=== PATIENT | male | born 1955 | race Two or more races ===

== ENCOUNTER 2023-02-24 12:45 | Outpatient (OUT) | payer MEDICARE, SELFPAY ==
--- NOTE | 2023-02-24 13:50 | XR_ITS ---
The [address] [address] Patient Name: PATY CARDONA MRN: [id number] date: 1955 Sex: M Assigned Patient Location: [facility] Current Patient Location: [facility] Accession/Order Number: [id number] Exam Date: 02/24/2023 13:30 Report Date: 02/24/2023 15:05 At the request of: DUSTY AHMADI Procedure: XR knee JUAN 3V EXAM: XR knee JUAN 3V HISTORY: Primary Osteoarthritis Bilateral Knees COMPARISON: 10/06/16 TECHNIQUE: AP and lateral views of the bilateral knees were obtained. FINDINGS: Left knee: Redemonstration of prior ACL reconstruction. There is interval progression of joint space narrowing with marginal spurring at the tibial femoral and patellofemoral compartments. No fracture is seen. In the standing AP view, there is slight varus deformity. Right knee: There is severe narrowing of the medial compartment. There is marginal spurring at the medial and patellofemoral compartments. XR/XR knee JUAN 3V IMPRESSION: Severe bilateral knee joint osteoarthritis worst at the medial compartments, left worse than right. Electronically authenticated by: LEONID RUEDA Date: 02/24/2023 15:05
== END 2023-02-24 12:46 | disposition home or self-care (01) ==
PROVIDERS: PCP Internal Medicine; Visit Provider Internal Medicine
DX: M17.0 Bilateral primary osteoarthritis of knee (principal)
CPT/HCPCS: 73562

== ENCOUNTER 2023-07-04 16:03 | Outpatient (OUT) | payer MEDICARE, SELFPAY ==
[2023-07-04 16:23] LABS: Erythrocyte Sedimentation Rate 31 mm/hr (<=20)
[2023-07-04 16:52] LABS: Estimated Average Glucose 151 mg/dL; Glycohemoglobin A1C 6.9 % (4.5-6.2)
[2023-07-04 18:42] LABS: C Reactive Protein <0.50 mg/dL (<=0.50)
[2023-07-06 06:09] LABS: Rheumatoid Factor (RF) <10.0 IU/mL (<14.0)
[2023-07-06 11:09] LABS: ANA Direct Negative (Negative)
== END 2023-07-04 16:04 | disposition home or self-care (01) ==
LOC: LAB 16:04
PROVIDERS: PCP Internal Medicine; Visit Provider Internal Medicine
DX: M06.4 Inflammatory polyarthropathy (principal); M25.541 Pain in joints of right hand; M25.542 Pain in joints of left hand; E11.65 Type 2 diabetes mellitus with hyperglycemia
CPT/HCPCS: 36415; 83036; 85652; 86038; 86140; 86430; 86431

== ENCOUNTER 2023-09-22 14:54 | Outpatient (OUT) | payer MEDICARE, SELFPAY ==
--- NOTE | 2023-09-22 | XR_ITS ---
The [address] [address] Patient Name: PATY CARDONA MRN: [id number] date: 1955 Sex: M Assigned Patient Location: LAB Current Patient Location: Accession/Order Number: [id number] Exam Date: 09/22/2023 15:18 Report Date: 09/25/2023 07:02 At the request of: CORY HESTER Procedure: XR hand JUAN min 3v EXAMINATION: XR hand JUAN min 3v, XR wrist JUAN min 3V HISTORY: Osteoarthritis, Ployartralgia COMPARISON: No relevant comparison available. FINDINGS: RIGHT FINDINGS: BONES: No acute fracture or dislocation. Mild proliferative changes with marginal osteophyte formation. Moderate joint space narrowing. No subchondral lytic changes or marginal erosions SOFT TISSUES: Negative. No visible soft tissue swelling. OTHER: Negative. LEFT FINDINGS: BONES: No acute fracture or dislocation. Mild proliferative changes with marginal osteophyte formation. Moderate joint space narrowing. No subchondral lytic changes or marginal erosions SOFT TISSUES: Negative. No visible soft tissue swelling. OTHER: Negative. 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
--- NOTE | 2023-09-22 | XR_ITS ---
[address] [address] Patient Name: PATY CARDONA MRN: [id number] date: 1955 Sex: M Assigned Patient Location: LAB Current Patient Location: Accession/Order Number: [id number] Exam Date: 09/22/2023 15:18 Report Date: 09/25/2023 07:02 At the request of: CORY HESTER Procedure: XR wrist JUNA min 3V EXAMINATION: XR hand JUAN min 3v, XR wrist JUAN min 3V HISTORY: Osteoarthritis, Ployartralgia COMPARISON: No relevant comparison available. FINDINGS: RIGHT FINDINGS: BONES: No acute fracture or dislocation. Mild proliferative changes with marginal osteophyte formation. Moderate joint space narrowing. No subchondral lytic changes or marginal erosions SOFT TISSUES: Negative. No visible soft tissue swelling. OTHER: Negative. LEFT FINDINGS: BONES: No acute fracture or dislocation. Mild proliferative changes with marginal osteophyte formation. Moderate joint space narrowing. No subchondral lytic changes or marginal erosions SOFT TISSUES: Negative. No visible soft tissue swelling. OTHER: Negative. 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
[2023-09-22 15:51] LABS: Basophils Percent Auto 0.6 % (0.2-2.0); Eosinophils Absolute Auto 0.3 10^3/uL (0.0-0.7); Eosinophils Percent Auto 5.1 % (0.9-7.0); Hematocrit 43.9 % (42.0-54.0); Hemoglobin 14.9 g/dL (14.0-18.0); Lymphocytes Absolute Auto 1.5 10^3/uL (1.2-3.8); Lymphocytes Percent Auto 30.6 % (20.5-60.0); Mean Corpuscular HGB Conc 33.9 g/dL (29.9-35.2); Mean Corpuscular Hemoglobin 30.5 pg (25.9-34.0); Monocytes Absolute Auto 0.6 10^3/uL (0.3-0.8); Monocytes Percent Auto 12.7 % (1.7-12.0); Neutrophils Absolute Auto 2.5 10^3/uL (1.4-6.5); Platelet Count 99 10^3/uL (150-450); Red Blood Count 4.88 10^6/uL (4.70-6.10); White Blood Count 4.9 10^3/uL (4.0-11.0)
[2023-09-22 15:54] LABS: Alanine Aminotransferase 39 U/L (16-63); Albumin Level 3.4 g/dL (3.4-5.0); Alkaline Phosphatase 87 U/L (46-116); Aspartate Amino Transferase 28 U/L (15-37); BUN Creatinine Ratio 17.1; Bilirubin Total 0.7 mg/dL (0.2-1.0); C Reactive Protein <0.50 mg/dL (<=0.50); Calcium 8.4 mg/dL (8.5-10.1); Carbon Dioxide 27.9 mmol/L (21.0-32.0); Chloride 102 mmol/L (98-107); Erythrocyte Sedimentation Rate 18 mm/hr (<=20); Estimated GFR (African America >60 (>=60); Estimated GFR (Non-African Ame >60 (>=60); Globulin 3.4 g/dL; Glucose 206 mg/dL (74-106); Potassium 3.9 mmol/L (3.5-5.1); Sodium 136 mmol/L (136-145); Total Protein 6.8 g/dL (6.4-8.2)
== END 2023-09-22 14:55 | disposition home or self-care (01) ==
LOC: LAB 14:57
PROVIDERS: PCP Internal Medicine; Visit Provider Internal Medicine Rheumatology
DX: M25.59 Pain in other specified joint (principal); M15.9 Polyosteoarthritis, unspecified; Z51.81 Encounter for therapeutic drug level monitoring
CPT/HCPCS: 36415; 73110; 73130; 80053; 85025; 85652; 86140

== ENCOUNTER 2024-01-05 15:44 | Outpatient (OUT) | payer MEDICARE, SELFPAY ==
--- OUTSIDE RECORDS SUMMARY | 2024-01-05 15:52 | XMS_ITS | CCD ---
Author Organization [facility] Care Team Providers Care Owner Operator Name Role Phone Rodolfo Ahmadi Primary Care Provider [phone] GEMA MCKEON Referring Unavailable LEONELA FENTON Consulting Unavailable RODOLFO AHMADI Primary Care Unavailable VARGAS DODSON Admitting UnavailVARGAS Malloy Attending UnavailCORY Herron Consulting Unavailable VARGAS DODSON Consulting Unavailjordon e BALL, DR MONTANO Primary Care Unavailable GALDINO, DR MONTANO Admitting Unavailable GALDINO, DR MONTANO Attending Unavailable GALDINO, DR MONTANO Consulting Unavailable GALDINO, DR MONTANO Consulting Unavailable GALDINO, DR MONTANO Primary Care Unavailable GALDINO, DR MONTANO Admitting Unavailable GALDINO, DR MONTANO Attending Unavailable ANT, DR ART Huertas Consulting Unavailable Rodolfo Ahmadi Unavailable DO Rodolfo Ahmadi Primary Care Provider MD Daryn Imalexander Attending Provider [phone] Asaad, Imad Unavailable MD Osmar Mathis Attending Provider DO Rodolfo Ahmadi Primary Care Provider MD Cory Zeng Attending Provider DO Rodolfo Ahmadi Primary Care Provider [phone] MD Cory Zeng Attending Provider MD Jojo Stearns Attending Provider [phone] Cory Zeng Admitting Unavailable Cory Zeng Attending Unavailable Rodolfo Ahmadi Primary Care Unavailable Asaad, Imad Admitting Unavailable Asaad, Imad Attending Unavailable Rodolfo Ahmadi Primary Care Unavailable Asaad, Imad Admitting Unavailable Asaad, Imad Attending Unavailable Rodolfo Ahmadi Primary Care Unavailable Asaad, Imad Admitting Unavailable Asaad, Imad Attending Unavailable Rodolfo Ahmadi Primary Care Unavailable Asaad, Imad Admitting Unavailable Asaad, Imad Attending Unavailable Rodolfo Ahmadi Primary Care Unavailable Osmar Mathis Admitting UnavailOsmar Velez Attending UnavailRodolfo Nunes Primary Care Unavailable Allergies Allergy Classification Reported Allergen(s) Allergy Type Date of Onset Reaction(s) Facility (3 sources) patient allergy list reviewed by nurse or physicia Propensity to adverse reactions 7 Comment:[employer] Other Medications Current Medications Medication Drug Class(es) Dates Sig (Normalized) Sig (Original) acetaminophen 325 mg oral tablet (1 source) Start: 04-11-2019 take 650 mg by mouth every four hours as needed for pain, then take 4000 mg by mouth every twenty-four hours as needed for pain 650 mg, Oral, EVERY 4 HOURS PRN, Pain Mild (1-3), Fever, Fever >100.5 F (38 C), Starting Patrica 04/11/19 at 1625 Maximum dose of acetaminophen is 4000 mg from all sources in 24 hours. acetaminophen 325 mg / oxyCODONE hydrochloride 5 mg oral tablet (3 sources) Opioid Agonist Start: 04-18-2019 End: 04-21-2019 take 1 tablet by mouth every four hours as needed for pain, then take 1 tablet by mouth as needed for pain oxyCODONE-acetamino phen (PERCOCET) 5-325 MG per tablet Indications: Gallstone pancreatitis Take 1 tablet by mouth every 4 hours as needed for Pain for up to 3 days. Intended supply: 3 days. Take lowest dose possible to manage pain 18 tablet 0 04/18/2019 04/21/2019 Active Start: 04-17-2019 End: 04-18-2019 take 1 tablet by mouth every six hours as needed for pain, then take 1 tablet by mouth as needed for pain oxyCODONE-acetaminophen (PERCOCET) 5-325 MG per tablet Indications: Gallstone pancreatitis Take 1 tablet by mouth every 6 hours as needed for Pain for up to 7 days. Intended supply: 7 days. Take lowest dose possible to manage pain 28 tablet 0 04/18/2019 04/18/2019 Discontinued (REORDER) aspirin 81 mg delayed release oral tablet (5 sources) Platelet Aggregation Inhibitor, Nonsteroidal Anti-inflammatory Drug Start: 09-21-2023 take 81 mg by mouth once daily Aspirin Active 81 MG PO Daily September 21, 2023 12:00am take 1 tablet by mouth once celsa y aspirin 81 MG chewable tablet Take 81 mg by mouth daily 0 Active azithromycin 250 mg oral tablet (3 sources) Macrolide Antimicrobial Start: 07-15-2022 Azithromycin 250 MG as directed Orally daily for 5 days Jul, Active Blood Glucose Test - (20 sources) Blood Glucose Test - as directed In Vitro Active cefepime (MAXIPIME) 2 g IVPB minibag (1 source) Start: 04-14-2019 cefepime (MAXIPIME) 2 g IVPB minibag docusate sodium 100 mg oral capsule (1 source) Start: 04-17-2019 End: 05-17-2019 take 1 capsule by mouth twice daily docusate sodium (COLACE) 100 MG capsule Take 1 capsule by mouth 2 times daily 60 capsule 0 04/17/2019 05/17/2019 Active 0.5 ml dulaglutide 1.5 mg/ml auto-injector (16 sources) GLP-1 Receptor Agonist Start: 12-19-2022 inject 0.75 mg by subcutaneous injection every week Trulicity 0.75 MG/0.5ML 0.75MG Subcutaneous weekly for 30 days Dec, Active inject 1.5 mg by sub cutaneous injection every week Trulicity 1.5 MG/0.5ML 1.5 MG Subcutaneous weekly for 30 days Active 0.3 ml enoxaparin sodium 100 mg/ml prefilled syringe (2 sources) Low Molecular Weight Heparin Start: 04-17-2019 enoxaparin (LOVENOX) injection 30 mg Start: 04-13-2019 End: 04-16-2019 enoxaparin (LOVENOX) injecti on 40 mg 2 ml famotidine 10 mg/ml injection (1 source) Histamine-2 Receptor Antagonist Start: 04-11-2019 20 mg, Intravenous, 2 TIMES DAILY, First dose on Patrica 04/11/19 at 2100 Dilute with 5-10 mL 0.9% sodium chloride. Administer over 2 minutes. fexofenadine hydrochloride 180 mg oral tablet (1 source) Histamine-1 Receptor Antagonist take 1 tablet by mouth once daily fexofenadine (SAKSHI ALLERGY) 180 MG tablet Take 180 mg by mouth daily 0 Active glipiZIDE 10 mg oral tablet (20 sources) Sulfonylurea Start: 01-05-2024 take 10 mg by mouth once daily Glipizide Active 10 MG PO Daily January 05, 2024 3:20pm Start: 01-05-2024 End: 01-05-2024 take 10 mg by mouth twice daily Glipizide Discontinued 10 MG PO Twice daily January 05, 2024 12:00am January 05, 2024 3:20pm Start: 07-15-2022 End: 09-21-2023 take 10 mg by mouth twice daily Glipizide Discontinued 10 MG PO Twice daily March 30, 2023 12:00am September 21, 2023 9:41am Start: 07-15-2022 take 2 tablets by [facility] once daily 30 minutes before breakfast glipiZIDE 10 MG 2 tablet 30 minutes before breakfast Orally Once a day for 30 day(s) Jul, Active glucagon (rdna) 1 mg injection (1 source) Antihypoglycemic Agent Start: 04-15-2019 glucago n (rDNA) injection 1 mg Glucosamine (4 sources) Start: 09-21-2023 glucosamine HC l Active PO September 21, 2023 12:00am 150 ml glucose 50 mg/ml injection (2 sources) Start: 04-15-2019 glucose (GLUTO SE) 40 % oral gel 15 g Start: 04-15-2019 dextrose 5 % s olution 1 ml hydrALAZINE hydrochloride 20 mg/ml injection (1 source) Arteriolar Vasodilator Start: 04-11-2019 10 mg, Intravenous, EVERY 6 HOURS PRN, High Blood Pressure, SBP > 150, Starting Patrica 04/11/19 at 1625 HYDROmorphone (DILAUDID) injection 0.25 mg (1 source) Start: 04-11-2019 HYDROmorphone (DILAUDID) injection 0.25 mg insulin lispro 100 unt/ml injectable solution (3 sources) Insulin Analog Start: 04-11-2019 End: 04-13-2019 insulin lispro (HUMALOG) injection vial 0-3 Units linagliptin 5 mg oral tablet (1 source) Dipeptidyl Peptidase 4 Inhibitor Start: 11-14-2022 take 1 tablet by mouth every twenty-four hours Tradjenta 5 MG 1 tablet Orally Once a day for 30 days October, Active 1 ml LORazepam 2 mg/ml injection (1 source) Benzodiazepine Start: 04-11-2019 LORazepam (ATIVAN) injection 1 mg 100 ml magnesium sulfate 10 mg/ml injection (1 source) Start: 04-11-2019 1 g, Intravenous, at 100 mL/hr, Administer over 1 Hours, PRN, Other, Magnesium Replacement, Starting [facility] 04/11/19 at 1625 Mg Lab Replacement Action 1.4-1. 6 1 gram IVPB x 2 doses (2 grams total) 1.0-1. 3 1 gram IVPB x 4 doses (4 grams total) < 1.0 CALL PHYSICIAN and 1 gram IVPB x 4 doses (4 grams total) Infuse at 1 gram/hr. Repe at Mag level next AM. Not for use in Patients with CrCl less than 30 mL/min. metFORMIN hydrochloride 1000 mg oral tablet (20 sources) Biguanide Start: 10-25-2023 take 1 tablet by mouth twice daily Metformin Active 0 .ROUTE .COMPLEX 60 October 25, 2023 6:57am Take 1 tablet by mouth twice daily Start: 09-21-2023 End: 10-25-2023 take 1000 mg by mouth once daily Metformin Discontinued 1000 MG PO Daily September 21, 2023 12:00am October 25, 2023 6:58am Start: 08-31-2023 End: 09-21-2023 take 1000 mg by mouth twice daily Metformin Discontinued 1000 MG PO Twice daily August 31, 2023 1:00am September 21, 2023 9:47am Start: 04-13-2023 take 1 tablet by fred th every twelve hours metFORMIN HCl 1000 MG 1 tablet with a meal Orally twice a day Apr, Active Start: 02-13-2023 End: 08-31-2023 take 500 mg by mouth at bedtime Metformin Discontinued 500 MG PO Bedtime February 13, 2023 12:00am August 31, 2023 10:42am take 1 tablet by fred th twice daily metFORMIN HCl 1000 MG 1 tablet Orally Twice daily Active 5 ml metoprolol tartrate 1 mg/ml injection (1 source) beta-Adrenergic Brooke Start: 04-11-2019 metoprolol (LOPRESSOR) injection 5 mg nabumetone 500 mg oral tablet (1 source) Nonsteroidal Anti-inflammatory Drug Start: 01-05-2024 take 500 mg by mouth twice daily Nabumetone Active 500 MG PO Twice daily January 05, 2024 12:00am ondansetron 4 mg oral tablet (2 sources) Serotonin-3 Receptor Antagonist Start: 04-17-2019 take 1 tablet by mouth three times daily as needed for nausea ondansetron (ZOFRAN) 4 MG tablet Take 1 tablet by mouth 3 times daily as needed for Nausea or Vomiting 30 tablet 0 04/17/2019 Active Start: 04-11-2019 4 mg, Intraven ous, EVERY 6 HOURS PRN, Nausea, Starting [facility] 04/11/19 at 1625 pantoprazole 20 mg delayed release oral tablet (1 source) Proton Pump Inhibitor Start: 04-18-2019 End: 05-18-2019 take 1 tablet by mouth once daily before breakfast pantoprazole (PROTONIX) 20 MG tablet Take 1 tablet by mouth every morning (before breakfast) 30 tablet 0 04/18/2019 05/18/2019 Active 100 ml potassium chloride 0.1 meq/ml injection (1 source) Start: 04-11-2019 take 10 mL intravenous route every hour as needed 10 mEq, Intravenous, at 100 mL/hr, PRN, Potassium Replacement, Starting [facility] 04/11/19 at 1625 K Lab Replacement Action 3.1-3 .5 &nb sp; &n bsp; 10 mEq IVPB x 4 doses (40 mEq Total) 2.7-3 .0 &nb sp; &a mp;nbsp; 10 mEq IVPB x 6 doses (60 mEq Total) < 2.7 &n bsp; & nbsp; CALL PHYSICIAN and 10 mEq IVPB x 6 doses (60 mEq Total) &nbsp ;Infuse at 10 mEq/hr. Repe at Potassium lab 1 hour after final administration.&n bsp;Not for use in patients with CrCl less than 30 mL/min. 1 ml promethazine hydrochloride 25 mg/ml injection (1 source) Phenothiazine Start: 04-11-2019 promethazine (PHENERGAN) injection 12.5 mg thiamine (B-1) 100 mg in sodium chloride 0.9 % 100 mL IVPB (1 source) Start: 04-11-2019 thiamine (B-1) 100 mg in sodium chloride 0.9 % 100 mL IVPB Completed/Discontinued Medications Medication Drug Class(es) Dates Sig (Normalized) Sig (Original) [id number] 200 actuat albuterol 0.09 mg/actuat metered dose inhaler (20 sources) beta2-Adrenergic Agonist Start: 08-31-2023 End: 09-21-2023 take 1 puff(s) by inhalation every four hours Albuterol Sulfate (Ventolin Hfa) 90 mcg/actuation HFA aerosol inhaler Discontinued 2 PUFF INHALATION Every 4 hours August 31, 2023 1:00am September 21, 2023 9:46am Start: 04-12-2019 albuterol (PRO VENTIL) nebulizer solution 2.5 mg take 2 puff(s) by in halation every four hours as needed for cough Ventolin HFA 108 (90 Base) MCG/ACT 2 puffs every 4 hours Inhalation PRN cough Active albuterol 0.833 mg/ml / ipratropium bromide 0.167 mg/ml inhalant solution (1 source) Anticholinergic, beta2-Adrenergic Agonist Start: 04-12-2019 End: 04-12-2019 ipratropium-albuterol (DUONEB) 0.5-2.5 (3) MG/3ML nebulizer solution benazepril hydrochloride 10 mg oral tablet (20 sources) Angiotensin Converting Enzyme Inhibitor Start: 08-31-2023 End: 09-21-2023 take 10 mg by mouth once daily Benazepril Discontinued 10 MG PO Daily August 31, 2023 1:00am September 21, 2023 9:45am Start: 07-15-2022 take 1 tablet by fred th every twenty-four hours Benazepril HCl 10 MG 1 tablet Orally Once a day Jul, Active take 1 tablet by mouth once celsa y benazepril (LOTENSIN) 5 MG tablet Take 5 mg by mouth daily 0 Active benzonatate 200 mg oral capsule (20 sources) Non-narcotic Antitussive Start: 08-31-2023 End: 09-21-2023 take 200 mg by mouth three times daily Benzonatate Discontinued 200 MG PO Three times daily August 31, 2023 1:00am September 21, 2023 9:44am Start: 07-15-2022 take 1 capsule by mo [facility] every eight hours Benzonatate 200 MG 1 capsule Orally Three times a day for 10 days Jul, Active calcium chloride 0.0014 meq/ ml / potassium chloride 0.004 meq/ml / sodium chloride 0.103 meq/ml / sodium lactate 0.028 meq/ml injectable solution (2 sources) Start: 04-11-2019 End: 04-18-2019 lactated ringers bolus calcium gluconate 1 g in dextrose 5 % 100 mL IVPB (2 sources) Start: 04-14-2019 End: 04-14-2019 calcium gluconate 1 g in dextrose 5 % 100 mL IVPB Start: 04-12-2019 End: 04-12-2019 calcium gluconate 1 g in dex trose 5 % 100 mL IVPB calcium gluconate 2 g in dextrose 5 % 100 mL IVPB (1 source) Start: 04-13-2019 End: 04-13-2019 calcium gluconate 2 g in dextrose 5 % 100 mL IVPB desloratadine 5 mg disintegrating oral tablet (20 sources) Histamine-1 Receptor Antagonist Start: 08-31-2023 End: 09-21-2023 take 5 mg by mouth once daily Desloratadine Discontinued 5 MG PO Daily August 31, 2023 1:00am September 21, 2023 9:44am take 1 tablet by [facility] every twenty-four hours Desloratadine 5 MG 1 tablet on the tongu e and allow to dissolve Orally Once a day Active 2 ml fentaNYL 0.05 mg/ml injection (1 source) Opioid Agonist Start: 04-17-2019 End: 04-17-2019 fentaNYL (SUBLIMAZE) injection 50 mcg gadoteridol (PROHANCE) injection 20 mL (1 source) Start: 04-11-2019 End: 04-11-2019 gadoteridol (PROHANCE) injection 20 mL hydrocortisone 25 mg/ml topical cream (18 sources) Corticosteroid Start: 08-31-2023 End: 09-21-2023 Hydrocortisone (Anusol-Hc) 2.5 % cream with perineal applicator Discontinued 1 APPLIC TOPICAL Twice daily August 31, 2023 1:00am September 21, 2023 9:45am Start: 02-22-2023 Anusol-HC 2.5 % 1 application Externally Twice a day as needed for pain and itching for 30 days Jan, Active Start: 02-22-2023 Anusol-HC 2.5 % 1 application Externally Twice a day as needed for pain and itching for 30 days Jan, Active Iohexol (1 source) Radiographic Contrast Agent Start: 04-14-2019 End: 04-14-2019 iohexol (OMNIPAQUE 350) solution 75 mL iohexol (OMNIPAQUE 240) injection 50 mL (1 source) Start: 04-14-2019 End: 04-14-2019 iohexol (OMNIPAQUE 240) injection 50 mL meloxicam (9 sources) Nonsteroidal Anti-inflammatory Drug Start: 09-21-2023 End: 01-05-2024 meloxicam Discontinued PO September 21, 2023 12:00am January 05, 2024 3:08pm Start: 09-21-2023 meloxicam Acti ve PO September 21, 2023 12:00am Start: 11-22-2022 take 1 tablet by fred th every twenty-four hours Meloxicam 15 MG 1 tablet Orally Once a day October, Active Sodium Chloride (4 sources) Start: 04-17-2019 End: 04-17-2019 sodium chloride (PF) 0.9 % i njection Start: 04-11-2019 10 mL, Intrave nous, EVERY 12 HOURS SCHEDULED (2 times per day), First dose on Patrica 04/11/19 at 2100 Start: 04-11-2019 sodium chlorid e flush 0.9 % injection 10 mL Start: 04-11-2019 take 10 mL intraveno us route once as needed 10 mL, Intravenous, PRN, Line Care, After every IV line use, Starting [facility] 04/11/19 at 1625 Problems Active Problems Problem Classification Problem Date Documented Da te Episodic/Chronic Abdominal pain (6 sources) Left upper quadrant pain; Translations: [Left upper quadrant pain] Onset: 4 Episodic Acute bronchitis (1 source) Acute bronchitis due to other specified organisms Episodic Biliary tract disease (4 sources) Common bile duct calculus; Translations: [Biliary calculus] Onset: 9 Resolved: 9 04-18-2019 Episodic Chronic obstructive pulmonary disease and bronchiectasis (20 sources) Simple chronic bronchitis; Translations: [Simple chronic bronchitis] 08-31-2023 Chronic Coagulation and hemorrhagic disorders (17 sources) Thrombocytopenic disorder; Translations: [Thrombocytopenia, unspecified] Chronic Diabetes mellitus with complications (20 sources) Type 2 diabetes mellitus with hyperglycemia; Translations: [Hyperglycemia due to type 2 diabetes mellitus] Onset: 2 Chronic Diabetes mellitus without complication (20 sources) Type 2 diabetes mellitus; Translations: [Type 2 diabetes mellitus with hyperglycemia] Onset: 9 04-18-2019 Chronic Diabetes mellitus without complication (5 sources) Hyperglycemia; Translations: [Impaired fasting glycemia] Onset: 9 Resolved: 9 04-18-2019 Episodic Disorders of lipid metabolism (20 sources) Hyperlipidemia; Translations: [Pure hypercholesterolemia] Onset: 7 04-18-2019 Chronic Esophageal disorders (14 sources) Gastroesophageal reflux disease; Translations: [Gastro-esophageal reflux disease with esophagitis] 04-18-2019 Chronic Essential hypertension (20 sources) Hypertensive disorder; Translations: [Essential (primary) hypertension] Onset: 2 04-18-2019 Chronic Fluid and electrolyte disorders (2 sources) Hypokalemia; Translations: [Hypokalemia] Onset: 9 Resolved: 9 04-15-2019 Episodic Gastrointestinal hemorrhage (1 source) Hemorrhage of anus and rectum Episodic Hemorrhoids (1 source) Residual hemorrhoidal skin tags Episodic Hepatitis (20 sources) Cirrhosis - non-alcoholic; 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 (XIE)] Chronic Hepatitis (8 sources) Chronic viral hepatitis; Translations: [Chronic viral hepatitis, unspecified] 08-31-2023 Episodic Hyperplasia of prostate (3 sources) Benign prostatic hypertrophy without outflow obstruction; Translations: [Hypertrophy (benign) of prostate without urinary obstruction and other lower urinary tract symptoms [LUTS]] Onset: 7 Chronic Immunizations and screening for infectious disease (3 sources) Vaccination given; Translations: [Encounter for immunization] Episodic Osteoarthritis (20 sources) Osteoarthritis; Translations: [Unspecified osteoarthritis, unspecified site] Chronic Other aftercare (1 source) 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 Episodic Other and unspecified benign neoplasm (1 source) Benign neoplasm of sigmoid colon Episodic Other circulatory disease (20 sources) Carotid bruit; Translations: [Other specified symptoms and signs involving the circulatory and respiratory systems] Episodic Other circulatory disease (3 sources) Cardiovascular symptoms; Translations: [Other specified symptoms and signs involving the circulatory and respiratory systems] Episodic Other connective tissue disease (6 sources) Spasm; Translations: [Cramp and spasm] Episodic Other connective tissue disease (18 sources) Muscle pain; Translations: [Myalgia, other site] Episodic Other connective tissue disease (1 source) Myalgia, other site Episodic Other connective tissue disease (3 sources) Unspecified disorder of synovium and tendon, left shoulder; Translations: [Unspecified disorder of synovium and tendon, left shoulder] Episodic Other diseases of veins and lymphatics (20 sources) Peripheral venous insufficiency; Translations: [Venous insufficiency (chronic) (peripheral)] 08-31-2023 Episodic Other diseases of veins and lymphatics (3 sources) Venous insufficiency (chronic) (peripheral); Translations: [Venous (peripheral) insufficiency, unspecified] 09-01-2023 Episodic Other disorders of stomach and duodenum (3 sources) Disorder of function of stomach; Translations: [Dyspepsia and other specified disorders of function of stomach] Episodic Other gastrointestinal disorders (4 sources) Splenomegaly, not elsewhere classified; Translations: [Splenomegaly] Episodic Other gastrointestinal disorders (4 sources) Splenomegaly; Translations: [Splenomegaly, not elsewhere classified] 09-21-2023 Episodic Other injuries and conditions due to external causes (3 sources) History of fall; Translations: [History of falling] Episodic Other liver diseases (20 sources) Fatty (change of) liver, not elsewhere classified; Translations: [Nonalcoholic fatty liver disease] Onset: 2 Chronic Other liver diseases (3 sources) Non-alcoholic fatty liver; Translations: [Fatty (change of) liver, not elsewhere classified] Chronic Other liver diseases (20 sources) Cirrhosis of liver; Translations: [Unspecified cirrhosis of liver] 08-31-2023 Chronic Other liver diseases (13 sources) Unspecified cirrhosis of liver; Translations: [Cirrhosis of liver without mention of alcohol] Onset: 3 Chronic Other liver diseases (3 sources) Steatosis of liver; Translations: [Fatty (change of) liver, not elsewhere classified] Chronic Other liver diseases (13 sources) Portal hypertension; Translations: [Portal hypertension] 08-31-2023 Chronic Other liver diseases (4 sources) Portal hypertension; Translations: [Portal hypertension] Chronic Other liver diseases (2 sources) Enzyme level - finding; Translations: [Transaminasemia] Onset: 9 04-18-2019 Episodic Other liver diseases (15 sources) Elevated liver enzymes level; Translations: [Abnormal levels of other serum enzymes] Episodic Other nervous system disorders (3 sources) Persistent pain following procedure; Translations: [Other acute postprocedural pain] Episodic Other non-traumatic joint disorders (3 sources) Lower limb joint arthritis; Translations: [Osteoarthrosis, unspecified whether generalized or localized, lower leg] Onset: 7 Chronic Other non-traumatic joint disorders (18 sources) Multiple joint pain; Translations: [Pain in unspecified joint] Episodic Other non-traumatic joint disorders (2 sources) Pain in unspecified joint; Translations: [Pain in unspecified joint] Onset: 4 Episodic Other nutritional; endocrine; and metabolic disorders (2 sources) Hypoalbuminemia; Translations: [Hypoalbuminemia] Onset: 9 04-18-2019 Chronic Other nutritional; endocrine; and metabolic disorders (2 sources) Hypocalcemia; Translations: [Hypocalcemia] Onset: 9 Resolved: 9 04-15-2019 Chronic Other nutritional; endocrine; and metabolic disorders (7 sources) Obesity; Translations: [Obesity, unspecified] Chronic Other nutritional; endocrine; and metabolic disorders (20 sources) Body mass index 30+ - obesity; Translations: [Body mass index (BMI) 36.0-36.9, adult] Onset: 7 Chronic Other nutritional; endocrine; and metabolic disorders (19 sources) Severe obesity; Translations: [Morbid (severe) obesity due to excess calories] Chronic Other nutritional; endocrine; and metabolic disorders (2 sources) Morbid (severe) obesity due to excess calories Chronic Other nutritional; endocrine; and metabolic disorders (2 sources) Body mass index (BMI) 36.0-36.9, adult Chronic Other nutritional; endocrine; and metabolic disorders (8 sources) Metabolic syndrome X; Translations: [Metabolic syndrome] Chronic Other nutritional; endocrine; and metabolic disorders (1 source) Metabolic syndrome Chronic Other screening for suspected conditions (not mental disorders or infectious disease) (20 sources) Platelet count below reference range; Translations: [Encounter for screening for malignant neoplasm of prostate] Onset: 9 Resolved: 9 04-18-2019 Episodic Other skin disorders (3 sources) Nail bed infection; Translations: [Onychia and paronychia of toe] Episodic Other upper respiratory disease (7 sources) Allergic rhinitis due to pollen; Translations: [Allergic rhinitis due to pollen] Chronic Other upper respiratory disease (5 sources) Allergic rhinitis; Translations: [Allergic rhinitis, unspecified] 08-31-2023 Chronic Other upper respiratory infections (3 sources) Acute sinusitis; Translations: [Acute sinusitis, unspecified] Episodic Pancreatic disorders (not diabetes) (10 sources) Gallstone pancreatitis; Translations: [Acute pancreatitis] Onset: 9 Resolved: 9 04-18-2019 Episodic Residual codes; unclassified (2 sources) Current drinker; Translations: [Alcohol use] 04-18-2019 Episodic Residual codes; unclassified (3 sources) Symptom: generalized; Translations: [Other general symptoms and signs] Episodic Rheumatoid arthritis and related disease (6 sources) Inflammatory polyarthropathy; Translations: [Inflammatory polyarthropathy] Chronic Substance-related disorders (20 sources) Tobacco user; Translations: [Nicotine dependence, cigarettes, in remission] Chronic Superficial injury; contusion (6 sources) Abrasion, right lower leg, initial encounter; Translations: [Abrasion, lower leg] Episodic Unclassified (1 source) ELEV LVLS LIVER TRANSAMINASE LVLS; Translations: [ELEV LVLS LIVER TRANSAMINASE LVLS] Onset: 2 Unclassified (3 sources) Elevation of levels of liver transaminase levels; Translations: [Elevation of levels of liver transaminase levels] Unclassified (1 source) Nonalcoholic steatohepatitis (XIE); 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 (XIE)] Onset: 3 Past or Other Problems Problem Classification Problem Date Documented Da te Episodic/Chronic Bacterial infection; unspecified site (3 sources) Bacterial infectious disease; Translations: [Bacterial infection, unspecified, in conditions classified elsewhere and of unspecified site] Onset: 08-03-2018 Episodic Esophageal disorders (15 sources) Esophageal disorders; Translations: [Gastro-esophageal reflux disease with esophagitis, without bleeding] Malaise and fatigue (4 sources) Other fatigue; Translations: [Malaise and fatigue] Onset: 10-03-2016 Episodic Other liver diseases (5 sources) Abnormal levels of other serum enzymes; Translations: [Elevated liver enzymes] Onset: 01-25-2023 Episodic Other non-traumatic joint disorders (3 sources) Arthralgia of the lower leg; Translations: [Pain in joint, lower leg] Onset: 10-03-2016 Episodic Other skin disorders (3 sources) Hypertrophic condition of skin; Translations: [Other hypertrophic disorders of the skin] Resolved: 10-26-2019 Episodic Screening and history of mental health and substance abuse codes (3 sources) History of tobacco use; Translations: [Personal history of tobacco use, presenting hazards to health] Onset: 10-03-2016 Episodic Skin and subcutaneous tissue infections (3 sources) Carbuncle of neck; Translations: [Carbuncle of neck] Onset: 08-03-2018 Episodic Sprains and strains (6 sources) Strain of muscle and tendon of back wall of thorax, initial encounter; Translations: [Sprain of shoulder and upper arm] Resolved: 09-25-2020 Episodic Unclassified (3 sources) Elevated transaminase level; Translations: [Elevated transaminase level] Viral infection (3 sources) Disease caused by 2019-nCoV; Translations: [COVID-19] Resolved: 09-25-2020 Results Test Name Value Interpretation Reference Range Facility Basophils Auto (Bld) [#/Vol] on 09-22-2023 Basophils (Bld) [#/Vol] 0.0 10 3/uL 0.0-0.1 [facility] Basophils/100 WBC Auto (Bld) on 09-22-2023 Basophils/100 WBC (Bld) 0.6 % 0.2-2.0 [facility] Eosinophils/100 WBC Auto (Bl d)on 09-22-2023 Eosinophils/100 WBC (Bld) 5.1 % 0.9-7.0 [facility] Erythrocyte distribution wid th Auto (RBC) [Ratio]on 09-22-2023 Erythrocyte distribution width (RBC) [Ratio] 13.0 % 11.0-15.0 [facility] Estimated glomerular filtrat ion rate (GFR) non- Americanon 09-22-2023 GFR/1.73 sq M.predicted among non-blacks MDRD (S/P/Bld) [Vol rate/Area] mL/min/{1.73_m2} >=60 [facility] Globulin Calc (S) [Mass/Vol] on 09-22-2023 Globulin (S) [Mass/Vol] 3.4 g/dL [facility] Hematocrit Auto (Bld) [Volum e fraction]on 09-22-2023 Hematocrit (Bld) [Volume fraction] 43.9 % 42.0-54.0 [facility] Hemoglobin [Mass/volume] in Bloodon 09-22-2023 Hemoglobin (Bld) [Mass/Vol] 14.9 g/dL 14.0-18.0 [facility] Laboratory - Chemistry and C hemistry - challengeon 09-22-2023 Albumin [Mass/Vol] 3.4 g/dL 3.4-5.0 [facility] ALP [Catalytic activity/Vol] 87 U/L 46-116 [facility] ALT [Catalytic activity/Vol] 39 U/L 16-63 [facility] AST [Catalytic activity/Vol] 28 U/L 15-37 [facility] Bilirubin [Mass/Vol] 0.7 mg/dL 0.2-1.0 [facility] Calcium [Mass/Vol] 8.4 mg/dL 8.5-10.1 [facility] Chloride [Moles/Vol] 102 mmol/L 98-107 [facility] CO2 [Moles/Vol] 27.9 mmol/L 21.0-32.0 [facility] Creatinine [Mass/Vol] 0.76 mg/dL 0.70-1.30 [facility] GFR/1.73 sq M.predicted MDRD (S/P/Bld) [Vol rate/Area] mL/min/{1.73_m2} >=60 [facility] Glucose [Mass/Vol] 206 mg/dL 74-106 [facility] Potassium [Moles/Vol] 3.9 mmol/L 3.5-5.1 [facility] Protein [Mass/Vol] 6.8 g/dL 6.4-8.2 [facility] Sodium [Moles/Vol] 136 mmol/L 136-145 [facility] Urea nitrogen [Mass/Vol] 13.0 mg/dL 7.0-18.0 [facility] Urea nitrogen/Creatinine [Mass ratio] 17.1 mg/mg [facility] Laboratory - Hematology and Cell countson 09-22-2023 ESR (Bld) [Velocity] 18 mm/h <=20 [facility] Immature granulocytes/100 WBC (Bld) 0.0 % 0.0-0.5 [facility] Leukocytes [#/volume] correc jimena for nucleated erythrocytes in Blood by Automated counon 09-22-2023 WBC corrected for nucl RBC Auto (Bld) [#/Vol] 4.9 10 3/uL 4.0-11.0 [facility] Lymphocytes Auto (Bld) [#/Vo l]on 09-22-2023 Lymphocytes (Bld) [#/Vol] 1.5 10 3/uL 1.2-3.8 [facility] Lymphocytes/100 WBC Auto (Bl d)on 09-22-2023 Lymphocytes/100 WBC (Bld) 30.6 % 20.5-60.0 [facility] MCH Auto (RBC) [Entitic mass ]on 09-22-2023 MCH (RBC) [Entitic mass] 30.5 pg 25.9-34.0 [facility] MCHC Auto (RBC) [Mass/Vol]on 09-22-2023 MCHC (RBC) [Mass/Vol] 33.9 g/dL 29.9-35.2 [facility] MCV Auto (RBC) [Entitic vol] on 09-22-2023 MCV (RBC) [Entitic vol] 90.0 fL 80.0-94.0 [facility] Monocytes Auto (Bld) [#/Vol] on 09-22-2023 Monocytes (Bld) [#/Vol] 0.6 10 3/uL 0.3-0.8 [facility] Monocytes/100 WBC Auto (Bld) on 09-22-2023 Monocytes/100 WBC (Bld) 12.7 % 1.7-12.0 [facility] Neutrophils Auto (Bld) [#/Vo l]on 09-22-2023 Neutrophils (Bld) [#/Vol] 2.5 10 3/uL 1.4-6.5 [facility] Neutrophils/100 WBC Auto (Bl d)on 09-22-2023 Neutrophils/100 WBC (Bld) 51.0 % 43.0-75.0 [facility] No Panel Informationon 09-21 C-Reactive Protein, Quantitative <0.50 mg/dL <=0.50 [facility] Eosinophils # (Auto) 0.3 10 3/uL 0.0-0.7 [facility] Immature Granulocyte # (Auto) 0.00 10 3/uL 0.00-0.03 [facility] Platelet mean volume Auto (B ld) [Entitic vol]on 09-22-2023 Platelet mean volume (Bld) [Entitic vol] 11.0 fL 9.5-13.5 [facility] Platelets Auto (Bld) [#/Vol] on 09-22-2023 Platelets (Bld) [#/Vol] 99 10 3/uL 150-450 [facility] RBC Auto (Bld) [#/Vol]on RBC (Bld) [#/Vol] 4.88 10 6/uL 4.70-6.10 [facility] Serum or plasma albumin/glob ulin mass ratioon 09-22-2023 Albumin/Globulin [Mass ratio] 1.0 {ratio} [facility] Serum or plasma anion gap de terminationon 09-22-2023 Anion gap [Moles/Vol] 10.0 mmol/L [facility] CT abdomen wo/w conon 2023 CT abdomen wo/w con [facility] [place] [address] CT Scan Report Signed Patient: Paty Cardona MR#: [id number] : 1955 Acct:[id number] Age/Sex: 67 / M ADM Date: 09/20/23 Loc: CT Room: Type: [facility] CLI Attending Dr: Jojo Stearns MD Copies to: Jojo Stearns MD Ordering Provider: Jjoo Stearns MD Date of Service: 09/20/23 CT/CT abdomen wo/w con: K74.30 CT ABDOMEN WITHOUT AND WITH INTRAVENOUS CONTRAST CLINICAL DATA: History of cirrhosis and fatty liver. COMPARISON: 02/13/2023 Spiral images were obtained through the abdomen and pelvis before and after intravenous administration of 90 mL Isovue-300. This CT exam was performed using one or more following dose reduction techniques: Automated exposure control, adjustment of the mA and/or kV according to patient size, or use of iterative reconstruction technique. Limited cuts through the lung bases show tiny calcified and noncalcified pulmonary nodules. Those which were included on the prior are unchanged. Minimal atelectasis or scarring is present. The liver has a slightly nodular contour. Fatty infiltration of the liver is still suspected. No developing intrahepatic masses are seen. The gallbladder is surgically absent. There is minor pneumobilia. No common duct stones are noted. The spleen remains prominent measuring almost 16 cm in craniocaudal dimension. The pancreas and adrenal glands show no acute findings. There is minor bilateral perinephric fibrofatty stranding. No renal calculi are present precontrast. Following contrast administration, the renal nephrograms are symmetric. No hydronephrosis is noted. There is mild atherosclerotic plaque involving the aorta and iliac arteries. There are varices at the GE junction. No portal vein thrombosis is identified. There is subtle hazy density at the root of the mesentery with small lymph nodes. No ascites is present. The small bowel loops are not dilated. There is a normal retrocecal appendix. There is mild colonic stool. Patient has a tiny umbilical hernia containing fat. There are mild degenerative changes at the spine. CT/CT abdomen wo/w con IMPRESSION: CONTINUED TINY CALCIFIED AND NONCALCIFIED PULMONARY NODULES. 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 FATTY LIVER. NO DEVELOPING HEPATIC MASSES. NO BOWEL OR URINARY TRACT OBSTRUCTION. Impression dictated by: Aranza Abreu M.D.09/20/2023 4:19 PM Dictation Location: [place] [address] Transcribed By: [facility] 09/20/23 1619 Dictated By: Aranza Abreu MD 09/20/23 1609 Signed By: 09/20/23 1619 Normal [facility] Alanine aminotransferase [En zymatic activity/volume] in Serum or PlasmaOrdered By: Cory Zeng on 08-22-2023 ALT [Catalytic activity/Vol] 42 U/L 7-52 [facility] Albumin [Mass/volume] in Ser um or Plasma by Bromocresol green (BCG) dye binding methoOrdered By: Cory Zeng on 08-22-2023 Albumin BCG dye [Mass/Vol] 4.3 g/dL 3.5-5.7 [facility] Alkaline phosphatase [Enzyma tic activity/volume] in Serum or PlasmaOrdered By: Cory Zeng on 08-22-2023 ALP [Catalytic activity/Vol] 70 U/L 34-104 [facility] Aspartate aminotransferase [ Enzymatic activity/volume] in Serum or PlasmaOrdered By: Cory Zeng on 08-22-2023 AST [Catalytic activity/Vol] 32 U/L 13-39 [facility] Basophils Auto (Bld) [#/Vol] Ordered By: Cory Zeng on 08-22-2023 Basophils (Bld) [#/Vol] 0.0 10*3/uL 0.0-0.2 [facility] Basophils/100 WBC Auto (Bld) Ordered By: Cory Zeng on 08-22-2023 Basophils/100 WBC (Bld) 0.5 % . [facility] Bilirubin.total [Mass/volume ] in Serum or PlasmaOrdered By: Cory Zeng on 08-22-2023 Bilirubin [Mass/Vol] 0.7 mg/dL 0.3-1.0 [facility] C reactive protein [Mass/vol ume] in Serum or PlasmaOrdered By: Cory Zeng on 08-22-2023 CRP [Mass/Vol] < 0.5 mg/dL 0.0-0.5 [facility] C-Reactive Proteinon 024 CRP [Mass/Vol] mg/L Normal 0.0-0.5 [facility] Comment on above: Performed By: #### C MP, T4F, CRP, CBC, ESR, TSH3 #### [address] Calcium [Mass/volume] in Ser um or PlasmaOrdered By: Cory Karri on 08-22-2023 Calcium [Mass/Vol] 9.2 mg/dL 8.6-10.3 [facility] Carbon dioxide, total [Moles /volume] in Serum or PlasmaOrdered By: Cory Karri on 08-22-2023 CO2 [Moles/Vol] 29.6 mmol/L 21.0-31.0 [facility] Chloride [Moles/volume] in S chris or PlasmaOrdered By: Cory Karri on 08-22-2023 Chloride [Moles/Vol] 106 mmol/L 98-107 [facility] Complete Blood Count Auto Di ffon 08-22-2023 Basophils (Bld) [#/Vol] 0.0 10*3/uL Normal 0.0-0.2 [facility] Comment on above: Performed By: #### C MP, T4F, CRP, CBC, ESR, TSH3 #### [facility] [address] Basophils/100 WBC (Bld) 0.5 % Normal . [facility] Comment on above: Performed By: #### C MP, T4F, CRP, CBC, ESR, TSH3 #### [facility] [address] Eosinophils (Bld) [#/Vol] 0.2 10*3/uL Normal 0.0-0.45 [facility] Comment on above: Performed By: #### C MP, T4F, CRP, CBC, ESR, TSH3 #### [facility] [address] Eosinophils/100 WBC (Bld) 4.2 % Normal . [facility] Comment on above: Performed By: #### C MP, T4F, CRP, CBC, ESR, TSH3 #### [facility] [address] Erythrocyte distribution width (RBC) [Ratio] 13.8 % Normal 12.0-14.8 [facility] Comment on above: Performed By: #### C MP, T4F, CRP, CBC, ESR, TSH3 #### [address] Hematocrit (Bld) [Volume fraction] 44.3 % Normal 38.8-50.0 [facility] Comment on above: Performed By: #### C MP, T4F, CRP, CBC, ESR, TSH3 #### [address] Hemoglobin (Bld) [Mass/Vol] 15.2 g/dL Normal 13.0-17.0 [facility] Comment on above: Performed By: #### C MP, T4F, CRP, CBC, ESR, TSH3 #### [address] Lymphocytes (Bld) [#/Vol] 1.5 10*3/uL Normal 1.00-4.8 [facility] Comment on above: Performed By: #### C MP, T4F, CRP, CBC, ESR, TSH3 #### [address] Lymphocytes/100 WBC (Bld) 33.8 % Normal . [facility] Comment on above: Performed By: #### C MP, T4F, CRP, CBC, ESR, TSH3 #### [address] MCH (RBC) [Entitic mass] 30.6 pg Normal 27.5-35.2 [facility] Comment on above: Performed By: #### C MP, T4F, CRP, CBC, ESR, TSH3 #### [address] MCV (RBC) [Entitic vol] 89.4 fL Normal 83.5-101 [facility] Comment on above: Performed By: #### C MP, T4F, CRP, CBC, ESR, TSH3 #### [address] Mean Corpuscular HGB Conc 34.2 g/dL Normal 32.5-35.6 [facility] Comment on above: Performed By: #### C MP, T4F, CRP, CBC, ESR, TSH3 #### [address] Monocytes (Bld) [#/Vol] 0.5 10*3/uL Normal 0.0-0.8 [facility] Comment on above: Performed By: #### C MP, T4F, CRP, CBC, ESR, TSH3 #### [address] Monocytes/100 WBC (Bld) 11.5 % Normal . [facility] Comment on above: Performed By: #### C MP, T4F, CRP, CBC, ESR, TSH3 #### [address] Neutrophils (Bld) [#/Vol] 2.3 10*3/uL Normal 1.8-7.7 [facility] Comment on above: Performed By: #### C MP, T4F, CRP, CBC, ESR, TSH3 #### [address] Neutrophils/100 WBC (Bld) 50.0 % Normal . [facility] Comment on above: Performed By: #### C MP, T4F, CRP, CBC, ESR, TSH3 #### [address] NRBC% 0.1 /100{WBC} Normal 0-0.5 [facility] Comment on above: Performed By: #### C MP, T4F, CRP, CBC, ESR, TSH3 #### [address] Platelet mean volume (Bld) [Entitic vol] 8.9 fL Normal 6.6-10.1 [facility] Comment on above: Performed By: #### C MP, T4F, CRP, CBC, ESR, TSH3 #### [address] Platelets (Bld) [#/Vol] 90 10*3/uL Low 150-450 [facility] Comment on above: Performed By: #### C MP, T4F, CRP, CBC, ESR, TSH3 #### [facility] [address] RBC (Bld) [#/Vol] 4.96 10*6/uL Normal 3.90-5.60 [facility] Comment on above: Performed By: #### C MP, T4F, CRP, CBC, ESR, TSH3 #### [facility] [address] WBC (Bld) [#/Vol] 4.5 10*3/uL Normal 4.1-10.5 [facility] Comment on above: Performed By: #### C MP, T4F, CRP, CBC, ESR, TSH3 #### [address] Comprehensive Metabolic Pane miah 08-22-2023 Albumin [Mass/Vol] 4.3 g/dL Normal 3.5-5.7 [facility] Comment on above: Performed By: #### C MP, T4F, CRP, CBC, ESR, TSH3 #### [address] Albumin/Globulin [Mass ratio] 1.7 {ratio} Normal [facility] Comment on above: Performed By: #### C MP, T4F, CRP, CBC, ESR, TSH3 #### [address] ALP [Catalytic activity/Vol] 70 U/L Normal 34-104 [facility] Comment on above: Performed By: #### C MP, T4F, CRP, CBC, ESR, TSH3 #### [address] ALT [Catalytic activity/Vol] 42 U/L Normal 7-52 [facility] Comment on above: Performed By: #### C MP, T4F, CRP, CBC, ESR, TSH3 #### [address] Anion gap [Moles/Vol] 11.7 mmol/L Normal 6.0-15.0 [facility] Comment on above: Performed By: #### C MP, T4F, CRP, CBC, ESR, TSH3 #### [facility] [address] AST [Catalytic activity/Vol] 32 U/L Normal 13-39 [facility] Comment on above: Performed By: #### C MP, T4F, CRP, CBC, ESR, TSH3 #### [facility] [address] Bilirubin [Mass/Vol] 0.7 mg/dL Normal 0.3-1.0 [facility] Comment on above: Performed By: #### C MP, T4F, CRP, CBC, ESR, TSH3 #### [address] Calcium [Mass/Vol] 9.2 mg/dL Normal 8.6-10.3 [facility] Comment on above: Performed By: #### C MP, T4F, CRP, CBC, ESR, TSH3 #### [address] Chloride [Moles/Vol] 106 mmol/L Normal 98-107 [facility] Comment on above: Performed By: #### C MP, T4F, CRP, CBC, ESR, TSH3 #### [address] CO2 [Moles/Vol] 29.6 mmol/L Normal 21.0-31.0 [facility] Comment on above: Performed By: #### C MP, T4F, CRP, CBC, ESR, TSH3 #### [address] Creatinine [Mass/Vol] 0.72 mg/dL Normal 0.70-1.30 [facility] Comment on above: Performed By: #### C MP, T4F, CRP, CBC, ESR, TSH3 #### [address] GFR/1.73 sq M.predicted MDRD (S/P/Bld) [Vol rate/Area] mL/min/{1.73_m2} Normal [facility] Comment on above: Performed By: #### C MP, T4F, CRP, CBC, ESR, TSH3 #### [facility] [address] Globulin (S) [Mass/Vol] 2.5 g/dL Normal [facility] Comment on above: Performed By: #### C MP, T4F, CRP, CBC, ESR, TSH3 #### [facility] [address] Glucose [Mass/Vol] 100 mg/dL Normal 70-100 [facility] Comment on above: Result Comment: [facility] Glucose Reference Range is dependent on time and content of last meal. Glucose of more than 200 mg/dL in a nonstressed, ambulatory subject supports the diagnosis of Diabetes Mellitus. ADA recommended reference range Performed By: #### C MP, T4F, CRP, CBC, ESR, TSH3 #### [address] Potassium [Moles/Vol] 4.3 mmol/L Normal 3.5-5.1 [facility] Comment on above: Performed By: #### C MP, T4F, CRP, CBC, ESR, TSH3 #### [address] Protein [Mass/Vol] 6.8 g/dL Normal 6.4-8.9 [facility] Comment on above: Performed By: #### C MP, T4F, CRP, CBC, ESR, TSH3 #### [address] Sodium [Moles/Vol] 143 mmol/L Normal 136-145 [facility] Comment on above: Performed By: #### C MP, T4F, CRP, CBC, ESR, TSH3 #### [address] Urea nitrogen [Mass/Vol] 20 mg/dL Normal 7-25 [facility] Comment on above: Performed By: #### C MP, T4F, CRP, CBC, ESR, TSH3 #### [address] [address] [place] Creatinine [Mass/volume] in Serum or PlasmaOrdered By: Coryelena Zeng on 08-22-2023 Creatinine [Mass/Vol] 0.72 mg/dL 0.70-1.30 [facility] Eosinophils Auto (Bld) [#/Vo l]Ordered By: Cory Zeng on 08-22-2023 Eosinophils (Bld) [#/Vol] 0.2 10*3/uL 0.0-0.45 [facility] Eosinophils/100 WBC Auto (Bl d)Ordered By: Cory Zeng on 08-22-2023 Eosinophils/100 WBC (Bld) 4.2 % . [facility] Erythrocyte Sedimentation Ra sylvia 08-22-2023 ESR (Bld) [Velocity] 13 mm/h Normal 0- [facility] Comment on above: Result Comment: PERF ORMED BY: [address] [place] [address] PATHOLOGIST LEAK DETECTOR ANG KERR M.D. Performed By: #### C MP, T4F, CRP, CBC, ESR, TSH3 #### [facility] [address] [place] [address] Erythrocyte distribution wid th Auto (RBC) [Ratio]Ordered By: Cory Zeng on 08-22-2023 Erythrocyte distribution width (RBC) [Ratio] 13.8 % 12.0-14.8 [facility] Erythrocyte sedimentation ra te by Photometric methodOrdered By: Cory Zeng on 08-22-2023 ESR Photometric method (Bld) [Velocity] 13 mm/hr 0- [facility] Free T4 (Free Thyroxine)on 0 08-22-2023 Free T4 [Mass/Vol] 0.89 ng/dL Normal 0.61-1.12 [facility] Comment on above: Performed By: #### C MP, T4F, CRP, CBC, ESR, TSH3 #### [facility] [address] [place] [address] Globulin Calc (S) [Mass/Vol] Ordered By: Cory Zeng on 08-22-2023 Globulin (S) [Mass/Vol] 2.5 g/dL [facility] Glucose [Mass/volume] in Ser um or PlasmaOrdered By: Cory Zeng on 08-22-2023 Glucose [Mass/Vol] 100 mg/dL 70-100 [facility] Comment on above: ADA recommended refe rence rangeRandom Glucose Reference Range is dependent on time and content of last meal. Glucose of more than 200 mg/dL in a nonstressed, ambulatory subject supports the diagnosis of Diabetes Mellitus. Hematocrit Auto (Bld) [Volum e fraction]Ordered By: Cory Zeng on 08-22-2023 Hematocrit (Bld) [Volume fraction] 44.3 % 38.8-50.0 [facility] Hemoglobin [Mass/volume] in BloodOrdered By: Cory Zeng on 08-22-2023 Hemoglobin (Bld) [Mass/Vol] 15.2 g/dL 13.0-17.0 [facility] Leukocytes [#/volume] correc jimena for nucleated erythrocytes in Blood by Automated counOrdered By: Cory Zeng on 08-22-2023 WBC corrected for nucl RBC Auto (Bld) [#/Vol] 4.5 10*3/uL 4.1-10.5 [facility] Lymphocytes Auto (Bld) [#/Vo l]Ordered By: Cory Zeng on 08-22-2023 Lymphocytes (Bld) [#/Vol] 1.5 10*3/uL 1.00-4.8 [facility] Lymphocytes/100 WBC Auto (Bl d)Ordered By: Cory Zeng on 08-22-2023 Lymphocytes/100 WBC (Bld) 33.8 % . [facility] MCH Auto (RBC) [Entitic mass ]Ordered By: Coyr Zeng on 08-22-2023 MCH (RBC) [Entitic mass] 30.6 pg 27.5-35.2 [facility] MCHC Auto (RBC) [Mass/Vol]Or dered By: Cory Zeng on 08-22-2023 MCHC (RBC) [Mass/Vol] 34.2 g/dL 32.5-35.6 [facility] MCV Auto (RBC) [Entitic vol] Ordered By: Cory Zeng on 08-22-2023 MCV (RBC) [Entitic vol] 89.4 fL 83.5-101 [facility] Monocytes Auto (Bld) [#/Vol] Ordered By: Cory Zeng on 08-22-2023 Monocytes (Bld) [#/Vol] 0.5 10*3/uL 0.0-0.8 [facility] Monocytes/100 WBC Auto (Bld) Ordered By: Cory Zeng on 08-22-2023 Monocytes/100 WBC (Bld) 11.5 % . [facility] Neutrophils Auto (Bld) [#/Vo l]Ordered By: Cory Zeng on 08-22-2023 Neutrophils (Bld) [#/Vol] 2.3 10*3/uL 1.8-7.7 [facility] Neutrophils/100 WBC Auto (Bl d)Ordered By: Cory Zeng on 08-22-2023 Neutrophils/100 WBC (Bld) 50.0 % . [facility] No Panel InformationOrdered By: Cory Zeng on 08-22-2023 Estimated GFR (CKD-EPI) > 60.0 mL/Min [facility] Creatinine Clearance (Chem N/A [facility] Nucleated erythrocytes [Pres ence] in Blood by Automated countOrdered By: Cory Zeng on 08-22-2023 Nucleated RBC Auto Ql (Bld) 0.1 /100{WBC} 0-0.5 [facility] Platelet mean volume Auto (B ld) [Entitic vol]Ordered By: Cory Zeng on 08-22-2023 Platelet mean volume (Bld) [Entitic vol] 8.9 fL 6.6-10.1 [facility] Platelets Auto (Bld) [#/Vol] Ordered By: Cory Zeng on 08-22-2023 Platelets (Bld) [#/Vol] 90 10*3/uL 150-450 [facility] Potassium [Moles/volume] in Serum or PlasmaOrdered By: Cory Zeng on 08-22-2023 Potassium [Moles/Vol] 4.3 mmol/L 3.5-5.1 [facility] Protein [Mass/volume] in Ser um or PlasmaOrdered By: Cory Zeng on 08-22-2023 Protein [Mass/Vol] 6.8 g/dL 6.4-8.9 [facility] RBC Auto (Bld) [#/Vol]Ordere d By: Cory Zeng on 08-22-2023 RBC (Bld) [#/Vol] 4.96 10*6/uL 3.90-5.60 [facility] Serum or plasma albumin/glob ulin mass ratioOrdered By: Cory Zeng on 08-22-2023 Albumin/Globulin [Mass ratio] 1.7 {ratio} [facility] Serum or plasma anion gap de terminationOrdered By: Cory Zeng on 08-22-2023 Anion gap [Moles/Vol] 11.7 mmol/L 6.0-15.0 [facility] Sodium [Moles/volume] in Ser um or PlasmaOrdered By: Cory Zeng on 08-22-2023 Sodium [Moles/Vol] 143 mmol/L 136-145 [facility] Thyroid Stimulating Hormoneo n 08-22-2023 TSH Qn 1.58 m[IU]/L Normal 0.45-5.33 [facility] Comment on above: Result Comment: PERF ORMED BY: [place] [address] PATHOLOGIST LEAK DETECTOR ANG KERR M.D. Performed By: #### C MP, T4F, CRP, CBC, ESR, TSH3 #### [address] Thyrotropin [Units/volume] i n Serum or PlasmaOrdered By: Cory Zeng on 08-22-2023 TSH Qn 1.58 m[IU]/L 0.45-5.33 [facility] Thyroxine (T4) free [Mass/vo lume] in Serum or PlasmaOrdered By: Cory Zeng on 08-22-2023 Free T4 [Mass/Vol] 0.89 ng/dL 0.61-1.12 [facility] Urea nitrogen [Mass/volume] in Serum or PlasmaOrdered By: Cory Zeng on 08-22-2023 Urea nitrogen [Mass/Vol] 20 mg/dL 7-25 [facility] WBC Auto (Bld) [#/Vol]Ordere d By: Cory Zeng on 08-22-2023 WBC (Bld) [#/Vol] 4.5 10*3/uL 4.1-10.5 [facility] Glucose Glucometer (BldC) [M ass/Vol]Ordered By: Osmar Mathis on 03-30-2023 Glucose [Mass/Vol] 119 mg/dL [facility] Comment on above: Random Glucose Refer ence Range is dependent on time and content of last meal. Glucose of more than 200 mg/dL in a nonstressed, ambulatory subject supports the diagnosis of Diabetes Mellitus. Glucose Poct Glucometerson 0 03-30-2023 Glucose [Mass/Vol] 119 mg/dL Normal [facility] Comment on above: Result Comment: [place] om Glucose Reference Range is dependent on time and content of last meal. Glucose of more than 200 mg/dL in a nonstressed, ambulatory subject supports the diagnosis of Diabetes Mellitus. PERFORMED BY: [facility] [address] [place] [address] PATHOLOGIST LEAK DETECTOR ANG KERR M.D. Performed By: #### G EBONY #### Point of Care testing , [facility] 03-30-2023 L ------- Specimen: [id number] Received: 03/30/23 Status: CINTHYA Reddy Num: [id number] Spec Type: Surgical Subm Dr: Osmar Mathis MD Tissues: A STOMACH FOR HP (ANTRUM HP) Procedures: HE/2, Gross/Micro L4, H PYLORI Age/ Patient Sex Location Account Attending Physician Paty Cardona/M [id number] Osmar Mathis MD SPEC NUM: [id number] RECD: 03/30/23 STATUS: CINTHYA REDDY NUM: [id number] RORY: 03/30/23 DR: Osmar Mathis MD ENTERED: 03/30/[address]: ABIGAIL TYPE: Surgical DEPT: S ORDERED: HE/2, Gross/Micro L4, H PYLORI ORDERED: HE/2, Gross/Micro L4, H PYLORI Pathological Diagnosis Gastric antrum biopsy: - Antral mucosa with mild reactive gastropathy, including minor associated congestion, and the occasionally admixed eosinophils in lamina propria, otherwise without erosion, intestinal metaplasia, or any significant stromal chronic inflammation observed - H. pylori immunostain with appropriate control is also negative for identified Helicobacter organisms or infection Clinical Information Cirrhosis, fatty liver, rule out H. pylori Gross Description Received in formalin labeled with the patient's name, date of and antrum is one ricci tissue measuring 0.3 cm. Entirely submitted in one cassette labeled A1. Microscopic Description Two H E slides reviewed. The microscopic examination confirms the diagnosis. Specimen: [id number] Received: 03/30/23 Status: CINTHYA Reddy Num: [id number] Spec Type: Surgical Subm Dr: Osmar Mathis MD Tissues: A STOMACH FOR HP (ANTRUM HP) Procedures: HE/2, Gross/Micro L4, H PYLORI Patient: Paty Cardona [id number] (Continued) Specimen: [id number] Received: 03/30/23 (Continued) Signed (signature on file) Prashanth Zamarripa MD 03/31/23 1837 Specimen: [id number] Received: 03/30/23 Status: CINTHYA Reddy Num: [id number] Spec Type: Surgical Subm Dr: Osmar Mathis MD Tissues: A STOMACH FOR HP (ANTRUM HP) Procedures: HE/2, Gross/Micro L4, H PYLORI Patient: Paty Cardona [id number] (Continued) Specimen: [id number] Received: 03/30/23 (Continued) CPT Codes 86433, 33563 Specimen: [id number] Received: 03/30/23-1232 Status: CINTHYA Reddy Num: [id number] Spec Type: Surgical Subm Dr: Osmar Mathis MD Tissues: A STOMACH FOR HP (ANTRUM HP) Procedures: HE/2, Gross/Micro L4, H PYLORI Patient: Paty Cardona [id number] (Continued) Signed (signature on file) Prashanth Zamarripa MD 03/31/231836 [facility] [place] [address] CT Scan Report Signed Patient: Paty Cardona MR#: [id number] : 1955 Acct:[id number] Age/Sex: 67 / M ADM Date: 02/13/23 Loc: CT Room: Type: [facility] Attending Dr: Jojo Stearns MD Copies to: Jojo Stearns MD Ordering Provider: Jojo Stearns MD Date of Service: 02/13/23 CT/CT abdomen wo/w con: K75.81, R74.8 CT Abdomen withcontrast TECHNIQUE: Axial imaging with 2-D reconstruction.90 cc of Isovue-300. The CT exam was performed using one or more the following dose reduction techniques: Automated exposure control, adjustment of the MA and/or Kv according to patient size, or use of the iterative reconstruction technique. COMPARISON: None History: Xie. Elevated liver and lungs. Upper abdominal pain LIMITATIONS: None LOWER THORAX Unremarkable LIVER: Small amount of pneumobilia present. Consider duct manipulation. Nodular contour liver suggests cirrhosis. GALLBLADDER: Cholecystectomy clips identified. BILE DUCTS: No dilatation SPLEEN: Splenomegaly with a length of 16 cm. PANCREAS: Unremarkable ADRENAL GLANDS: Unremarkable KIDNEYS:Unremarkable AORTA: No abdominal aortic aneurysm identified. RETROPERITONEUM: No significant retroperitoneal abnormalities identified. MESENTERY:Unremarkable SMALL BOWEL: The small bowel loops are nondistended. APPENDIX: The appendix is normal. COLON: Unremarkable PNEUMOPERITONEUM: None PERITONEAL FLUID:None BONY STRUCTURES: Unremarkable ABDOMINAL WALL: Small fat-containing umbilical hernia. CT/CT abdomen wo/w con IMPRESSION: Findings suggesting liver cirrhosis. No hepatic mass. Pneumobilia likely related to duct manipulation. Cholecystectomy. No biliary duct dilatation. Impression dictated by: Des Funez M.D.02/13/2023 1:36 PM Dictation Location: [place] [address] Transcribed By: [facility] 02/13/23 1336 Dictated By: Des Funez DO 02/13/23 1327 Signed By: 02/13/23 1336 [facility] AFP Tumor Marker, Serumon AFP Tumor Marker, Serum 14.1 ng/mL High 0.0-8.4 [facility] Comment on above: Result Comment: [employer] Electrochemiluminescence Immunoassay (ECLIA) Values obtained with different assay methods or kits cannot be used interchangeably. Results cannot be interpreted as absolute evidence of the presence or absence of malignant disease. This test is not interpretable in females. Performed at: [facility] [employer] [id number] Sonogram Technician: Damon Wood PhD, Phone: [phone] Performed By: #### A NA, ALPHA PHEN, CERULOP, HBSAB, L-K MICRO, MITOM2, HEMOCHROM, HBCAB, IMM GERALDINE, HBSAG, HAABT, HCV RX PCR, SMAB, AFPTM, HCBIGM, HAAB ####[facility] ,#### BMP, LIPASE, PT, YIN ####[facility] ANATOLIY Antinuclear Antibodieson 01-25-2023 Antinuclear Abs, IFA Negative Normal . [facility] Comment on above: Result Comment: Nega tive <1:80 Borderline 1:80 Positive >1:80 ICAP nomenclature: AC-0 For more information about Hep-2 cell patterns use ANApatterns.org, the official website for the International Consensus on Antinuclear Antibody (ANATOLIY) Patterns (ICAP). Performed at: [facility] [address] [id number] Sonogram Technician: Damon Wood PhD, Phone: [phone] Performed By: #### A NA, ALPHA PHEN, CERULOP, HBSAB, L-K MICRO, MITOM2, HEMOCHROM, HBCAB, IMM GERALDINE, HBSAG, HAABT, HCV RX PCR, SMAB, AFPTM, HCBIGM, HAAB ####[facility] ,#### BMP, LIPASE, PT, YIN ####[facility] Actin smooth muscle IgG Ab [ Units/volume] in SerumOrdered By: Imalexander Stearns on 01-25-2023 Actin smooth muscle IgG Qn (S) 6 Units 0-19 [facility] Comment on above: Negative 0 - 19 Weak positive 20 - 30 Moderate to strong positive >30 Actin Antibodies are found in 52-85% of patients with autoimmune hepatitis or chronic active hepatitis and in 22% of patients with primary biliary cirrhosis. Afznj-7-Drfculfyprc Phenotyp anthony 01-25-2023 Alpha 1 Anti-Trypsin 157 mg/dL Normal 101-187 [facility] Comment on above: Performed By: #### A NA, ALPHA PHEN, CERULOP, HBSAB, L-K MICRO, MITOM2, HEMOCHROM, HBCAB, IMM GERALDINE, HBSAG, HAABT, HCV RX PCR, SMAB, AFPTM, HCBIGM, HAAB ####[facility] ,#### BMP, LIPASE, PT, YIN ####[facility] [id number] [place] [id number] [facility] Phenotype (P1) MM Normal . [facility] Comment on above: Result Comment: Phen otype Population A-1-AT Concentration* Incidence % % of MM (Typical Range) MM 86.5% 100% (96 - 189) MS 8.0% 86% (83 - 161) MZ 3.9% 61% (60 - 111) FM 0.4% 100% (93 - 191) SZ 0.3% 41% (42 - 75) SS 0.1% 64% (62 - 119) ZZ 0.05% 19% (16 - 38) FS 0.05% 70% (70 - 128) FZ Unknown 46% (44 - 88) FF Unknown Unknown *A-1-AT concentration in the homozygous MM phenotype is taken as the reference normal. Percent deficiency in each phenotype is reported relative to this reference. Ranges used to confirm phenotype. Performed at: [facility] [address] [id number] Sonogram Technician: Damon Wood PhD, Phone: [phone] Performed at: [facility] [address] [id number] Sonogram Technician: Jim Carty MD, Phone: [phone] Performed By: #### A NA, ALPHA PHEN, CERULOP, HBSAB, L-K MICRO, MITOM2, HEMOCHROM, HBCAB, IMM GERALDINE, HBSAG, HAABT, HCV RX PCR, SMAB, AFPTM, HCBIGM, HAAB ####[facility] ,#### BMP, LIPASE, PT, YIN ####[facility] [id number] [place] [id number] [facility] Basic Metabolic Panelon 07-2 Anion gap [Moles/Vol] 12.7 mmol/L Normal 6.0-15.0 [facility] Comment on above: Performed By: #### A NA, ALPHA PHEN, CERULOP, HBSAB, L-K MICRO, MITOM2, HEMOCHROM, HBCAB, IMM GERALDINE, HBSAG, HAABT, HCV RX PCR, SMAB, AFPTM, HCBIGM, HAAB ####[facility] ,#### BMP, LIPASE, PT, YIN ####[place] [address] [address] Calcium [Mass/Vol] 9.0 mg/dL Normal 8.6-10.3 [facility] Comment on above: Performed By: #### A NA, ALPHA PHEN, CERULOP, HBSAB, L-K MICRO, MITOM2, HEMOCHROM, HBCAB, IMM GERALDINE, HBSAG, HAABT, HCV RX PCR, SMAB, AFPTM, HCBIGM, HAAB ####[facility] ,#### BMP, LIPASE, PT, YIN ####[address] Chloride [Moles/Vol] 107 mmol/L Normal 98-107 [facility] Comment on above: Performed By: #### A NA, ALPHA PHEN, CERULOP, HBSAB, L-K MICRO, MITOM2, HEMOCHROM, HBCAB, IMM GERALDINE, HBSAG, HAABT, HCV RX PCR, SMAB, AFPTM, HCBIGM, HAAB ####[facility] ,#### BMP, LIPASE, PT, YIN ####[address] CO2 [Moles/Vol] 24.9 mmol/L Normal 21.0-31.0 [facility] Comment on above: Performed By: #### A NA, ALPHA PHEN, CERULOP, HBSAB, L-K MICRO, MITOM2, HEMOCHROM, HBCAB, IMM GERALDINE, HBSAG, HAABT, HCV RX PCR, SMAB, AFPTM, HCBIGM, HAAB ####[facility] ,#### BMP, LIPASE, PT, YIN ####[address] Creatinine [Mass/Vol] 0.69 mg/dL Low 0.70-1.30 [facility] Comment on above: Performed By: #### A NA, ALPHA PHEN, CERULOP, HBSAB, L-K MICRO, MITOM2, HEMOCHROM, HBCAB, IMM GERALDINE, HBSAG, HAABT, HCV RX PCR, SMAB, AFPTM, HCBIGM, HAAB ####[facility] ,#### BMP, LIPASE, PT, YIN ####[place] [address] [address] GFR/1.73 sq M.predicted MDRD (S/P/Bld) [Vol rate/Area] mL/min/{1.73_m2} Normal [facility] Comment on above: Performed By: #### A NA, ALPHA PHEN, CERULOP, HBSAB, L-K MICRO, MITOM2, HEMOCHROM, HBCAB, IMM GERALDINE, HBSAG, HAABT, HCV RX PCR, SMAB, AFPTM, HCBIGM, HAAB ####[facility] ,#### BMP, LIPASE, PT, YIN ####[address] Glucose [Mass/Vol] 146 mg/dL High 70-100 [facility] Comment on above: Result Comment: [place] Glucose Reference Range is dependent on time and content of last meal. Glucose of more than 200 mg/dL in a nonstressed, ambulatory subject supports the diagnosis of Diabetes Mellitus. ADA recommended reference range Performed By: #### A NA, ALPHA PHEN, CERULOP, HBSAB, L-K MICRO, MITOM2, HEMOCHROM, HBCAB, IMM GERALDINE, HBSAG, HAABT, HCV RX PCR, SMAB, AFPTM, HCBIGM, HAAB ####[facility] ,#### BMP, LIPASE, PT, YIN ####[address] Potassium [Moles/Vol] 3.6 mmol/L Normal 3.5-5.1 [facility] Comment on above: Performed By: #### A NA, ALPHA PHEN, CERULOP, HBSAB, L-K MICRO, MITOM2, HEMOCHROM, HBCAB, IMM GERALDINE, HBSAG, HAABT, HCV RX PCR, SMAB, AFPTM, HCBIGM, HAAB ####[facility] ,#### BMP, LIPASE, PT, YIN ####[facility] Sodium [Moles/Vol] 141 mmol/L Normal 136-145 [facility] Comment on above: Performed By: #### A NA, ALPHA PHEN, CERULOP, HBSAB, L-K MICRO, MITOM2, HEMOCHROM, HBCAB, IMM GERALDINE, HBSAG, HAABT, HCV RX PCR, SMAB, AFPTM, HCBIGM, HAAB ####[facility] ,#### BMP, LIPASE, PT, YIN ####[place] [address] [address] Urea nitrogen [Mass/Vol] 20 mg/dL Normal 7-25 [facility] Comment on above: Performed By: #### A NA, ALPHA PHEN, CERULOP, HBSAB, L-K MICRO, MITOM2, HEMOCHROM, HBCAB, IMM GERALDINE, HBSAG, HAABT, HCV RX PCR, SMAB, AFPTM, HCBIGM, HAAB ####[facility] ,#### BMP, LIPASE, PT, YIN ####[address] Blood or tissue HFE gene mut ations identification by molecular genetics methodOrdered By: Jojo Stearns on 01-25-2023 HFE gene targeted mutation analysis [employer] Nom (Bld/Tiss) See comment . [facility] Comment on above: Results:c.845G>A (p. Jog900Rvm) - Not Detectedc.187C>G (p.Foi32Ihj) - Detected, heterozygousc.193A>T (p.Doa86Ufw) - Not DetectedNot associated with increased risk to develop clinicalsymptoms of Hereditary Hemochromatosis. In symptomaticindividuals, other causes of iron overload should beevaluated. See Additional Information and Comments.Additional Clinical Information:Hereditary hemochromatosis (HFE related) is an autosomalrecessive iron storage disorder. Patients may have agenetic diagnosis of hereditary hemochromatosis and nevershow clinical symptoms. Clinical symptoms typically appearbetween 40 to 60 years in males and after menopause infemales. Signs and symptoms may include organ damage,primarily in the liver, risk for hepatocellularcarcinoma, diabetes, and heart disease due to ironaccumulation. Life expectancy may be decreased inindividuals who develop cirrhosis. Treatment forclinically symptomatic individuals may includetherapeutic phlebotomy. Liver transplant may be used totreat end stage liver failure. For preventive care,monitoring for iron overload is recommended for patientswho are homozygous for c.845G>A (p.Qpg372Aen) and have yetto experience clinical symptoms.Comments:The most common HFE variants associated with hereditaryhemochromatosis are c.845G>A (p.Vhw705Yub), c.187C>G(p.Qtw17Gyw), c.193A>T (p.Uuw63Bko). While patientshomozygous for c.845G>A (p.Tje296Mpi) are the most likelyto present clinical symptoms, less than 10% developclinically significant iron overload with tissue and organdamage.Genetic counseling is recommended to discuss the potentialclinical implications of positive results, as well asrecommendations for testing family members.Genetic Coordinators are available for health careproviders to discuss results at [phone]).Test Details:Three variants analyzed:c.845G>A (p.Iij895Owt), commonly referred to as C282Yc.187C>G (p.Ywc37Tvj), commonly referred to as H63Dc.193A>T (p.Xav92Vne), commonly referred to as G96TKcsvrdk/Limitations:DNA Analysis of the HFE gene (NM_000410.4) was performedby PCR amplification followed by restriction enzymedigestion analyses. Results must be combined with clinicalinformation for the most accurate interpretation. Molecular-based testing is highly accurate, but as in any laboratorytest, diagnostic errors may occur. False positive or falsenegative results may occur for reasons that include geneticvariants, blood transfusions, bone marrow transplantation,somatic or tissue-specific mosaicism, mislabeled samples,or erroneous representation of family relationships.This test was developed and its performancecharacteristics determined by [employer]. It has not beencleared or approved by the Food and Drug Administration.References:Mak BR, Alberto PC, Jovon KV, Gabe LW, Jose Alfredo ;[employer] for the [employer] Liver Diseases.Diagnosis and management of hemochromatosis: 2011 practiceguideline by the [employer] Association for the Study ofLiver Diseases. Hepatology. 2010;54(1):328-43. doi:10.1002/hep.14095. PMID: 28505926; PMCID: NPZ3858294.Mary G, Tahmina P, Josh DW, Sixto H, Juan O,Cristo S, Ernst I, Nato M, Zaheer S. [facility] best practiceguidelines for the molecular genetic diagnosis ofhereditary hemochromatosis (HH). Eur J Hum Theresa. 2016Apr;24(4):479-95. doi: 10.1038/ejhg.2015.128. Epub 2014. PMID: 12102119; PMCID: IGJ4480577. Calcium [Mass/volume] in Ser um or PlasmaOrdered By: Imad Asaad on 01-25-2023 Calcium [Mass/Vol] 9.0 mg/dL 8.6-10.3 [facility] Carbon dioxide, total [Moles /volume] in Serum or PlasmaOrdered By: Imad Asaad on 01-25-2023 CO2 [Moles/Vol] 24.9 mmol/L 21.0-31.0 [facility] Ceruloplasminon 01-25-2023 Ceruloplasmin 27.4 mg/dL Normal 16.0-31.0 [facility] Comment on above: Result Comment: Perf ormed at: CB - [facility] [address] [id number] Sonogram Technician: Damon Wood PhD, Phone: [phone] PERFORMED BY: [facility] [address] [place] [address] PATHOLOGIST LEAK DETECTOR ANG KERR M.D. Performed By: #### A NA, ALPHA PHEN, CERULOP, HBSAB, L-K MICRO, MITOM2, HEMOCHROM, HBCAB, IMM GERALDINE, HBSAG, HAABT, HCV RX PCR, SMAB, AFPTM, HCBIGM, HAAB ####[facility] ,#### BMP, LIPASE, PT, YIN ####[place] [address] [place] [id number] [facility] Chloride [Moles/volume] in S chris or PlasmaOrdered By: Imad Asaad on 01-25-2023 Chloride [Moles/Vol] 107 mmol/L 98-107 [facility] Creatinine [Mass/volume] in Serum or PlasmaOrdered By: Imad Asaad on 01-25-2023 Creatinine [Mass/Vol] 0.69 mg/dL 0.70-1.30 [facility] Ferritinon 01-25-2023 Ferritin [Mass/Vol] 131.8 ng/mL Normal 23.9-336.2 [facility] Comment on above: Result Comment: PERF ORMED BY: [facility] [address] [place] [address] PATHOLOGIST LEAK DETECTOR ANG KERR M.D. Performed By: #### A NA, ALPHA PHEN, CERULOP, HBSAB, L-K MICRO, MITOM2, HEMOCHROM, HBCAB, IMM GERALDINE, HBSAG, HAABT, HCV RX PCR, SMAB, AFPTM, HCBIGM, HAAB ####[facility] ,#### BMP, LIPASE, PT, YIN ####[place] [address] [place] [id number] [facility] Ferritin [Mass/volume] in Se rum or PlasmaOrdered By: Imad Asaad on 01-25-2023 Ferritin [Mass/Vol] 131.8 ng/mL 23.9-336.2 [facility] Glucose [Mass/volume] in Ser um or PlasmaOrdered By: Imad Asaad on 01-25-2023 Glucose [Mass/Vol] 146 mg/dL 70-100 [facility] Comment on above: ADA recommended refe rence rangeRandom Glucose Reference Range is dependent on time and content of last meal. Glucose of more than 200 mg/dL in a nonstressed, ambulatory subject supports the diagnosis of Diabetes Mellitus. Hep C Ab wRfx to Qnt PCRon 0 7-26-2023 Hepatitis C Virus Antibody Non-Reactive Normal Non Reactive [facility] Comment on above: Performed By: #### A NA, ALPHA PHEN, CERULOP, HBSAB, L-K MICRO, MITOM2, HEMOCHROM, HBCAB, IMM GERALDINE, HBSAG, HAABT, HCV RX PCR, SMAB, AFPTM, HCBIGM, HAAB ####[facility] ,#### BMP, LIPASE, PT, YIN ####[address] Interpretation Hepatitis C Normal . [facility] Comment on above: Result Comment: Not infected with HCV unless early or acute infection is suspected (which may be delayed in an immunocompromised individual), or other evidence exists to indicate HCV infection. Performed By: #### A NA, ALPHA PHEN, CERULOP, HBSAB, L-K MICRO, MITOM2, HEMOCHROM, HBCAB, IMM GERALDINE, HBSAG, HAABT, HCV RX PCR, SMAB, AFPTM, HCBIGM, HAAB ####[facility] ,#### BMP, LIPASE, PT, YIN ####[address] Hepatitis A Antibody IgMon 0 01-25-2023 Hepatitis A Antibody IgM Negative Normal Negative [facility] Comment on above: Performed By: #### A NA, ALPHA PHEN, CERULOP, HBSAB, L-K MICRO, MITOM2, HEMOCHROM, HBCAB, IMM GERALDINE, HBSAG, HAABT, HCV RX PCR, SMAB, AFPTM, HCBIGM, HAAB ####[facility] ,#### BMP, LIPASE, PT, YIN ####[address] Hepatitis A Antibody Totalon 01-25-2023 Hepatitis A Antibody Total Positive Critically abnormal Negative [facility] Comment on above: Performed By: #### A NA, ALPHA PHEN, CERULOP, HBSAB, L-K MICRO, MITOM2, HEMOCHROM, HBCAB, IMM GERALDINE, HBSAG, HAABT, HCV RX PCR, SMAB, AFPTM, HCBIGM, HAAB ####[facility] ,#### BMP, LIPASE, PT, YIN ####[address] Hepatitis A virus Ab [Presen ce] in Serum by ImmunoassayOrdered By: Jojo Stearns on 01-25-2023 HAV Ab IA Ql (S) Positive Negative [facility] Hepatitis B Core Antibodyon 01-25-2023 Hepatitis B Core Antibody Negative Normal Negative [facility] Comment on above: Performed By: #### A NA, ALPHA PHEN, CERULOP, HBSAB, L-K MICRO, MITOM2, HEMOCHROM, HBCAB, IMM GERALDINE, HBSAG, HAABT, HCV RX PCR, SMAB, AFPTM, HCBIGM, HAAB ####[facility] ,#### BMP, LIPASE, PT, YIN ####[address] Hepatitis B Core Antibody Ig Mon 01-25-2023 Hepatitis B Core Antibody IgM Negative Normal Negative [facility] Comment on above: Result Comment: Perf ormed at: - [facility] [place] [id number] Sonogram Technician: Damon Wood PhD, Phone: [phone] Performed By: #### A NA, ALPHA PHEN, CERULOP, HBSAB, L-K MICRO, MITOM2, HEMOCHROM, HBCAB, IMM GERALDINE, HBSAG, HAABT, HCV RX PCR, SMAB, AFPTM, HCBIGM, HAAB ####[facility] ,#### BMP, LIPASE, PT, YIN ####[address] Hepatitis B Surface Antibody on 01-25-2023 Hepatitis B Surface Antibody Non-Reactive Normal . [facility] Comment on above: Result Comment: Non Reactive: Inconsistent with immunity, less than 10 mIU/mL Reactive: Consistent with immunity, greater than 9.9 mIU/mL Performed By: #### A NA, ALPHA PHEN, CERULOP, HBSAB, L-K MICRO, MITOM2, HEMOCHROM, HBCAB, IMM GERALDINE, HBSAG, HAABT, HCV RX PCR, SMAB, AFPTM, HCBIGM, HAAB ####[facility] ,#### BMP, LIPASE, PT, YIN ####[place] [address] [address] Hepatitis B Surface Antigeno n 01-25-2023 HBsAg Screen Negative Normal Negative [facility] Comment on above: Result Comment: PERF ORMED BY: [facility] [address] [place] [address] PATHOLOGIST LEAK DETECTOR ANG KERR M.D. Performed By: #### A NA, ALPHA PHEN, CERULOP, HBSAB, L-K MICRO, MITOM2, HEMOCHROM, HBCAB, IMM GERALDINE, HBSAG, HAABT, HCV RX PCR, SMAB, AFPTM, HCBIGM, HAAB ####[facility] ,#### BMP, LIPASE, PT, YIN ####[place] [address] [address] Hepatitis B virus surface Ag [Presence] in Serum or Plasma by ImmunoassayOrdered By: Imad Asaad on 01-25-2023 HBV surface Ag IA Ql Negative Negative [facility] Hepatitis C virus IgG Ab [Pr esence] in Serum or Plasma by ImmunoassayOrdered By: Imad Asaad on 01-25-2023 HCV IgG IA Ql Non-Reactive Non Reactive [facility] Hereditary Hemochromatosis,D NAon 01-25-2023 Hereditary Hemochromatosis Normal . [facility] Comment on above: Result Comment: Resu lts: c.845G>A (p.Kcv805Rjn) - Not Detected c.187C>G (p.Urs92Bwm) - Detected, heterozygous c.193A>T (p.Sjt69Xdf) - Not Detected Not associated with increased risk to develop clinical symptoms of Hereditary Hemochromatosis. In symptomatic individuals, other causes of iron overload should be evaluated. See Additional Information and Comments. Additional Clinical Information: Hereditary hemochromatosis (HFE related) is an autosomal recessive iron storage disorder. Patients may have a genetic diagnosis of hereditary hemochromatosis and never show clinical symptoms. Clinical symptoms typically appear between 40 to 60 years in males and after menopause in females. Signs and symptoms may include organ damage, primarily in the liver, risk for hepatocellular carcinoma, diabetes, and heart disease due to iron accumulation. Life expectancy may be decreased in individuals who develop cirrhosis. Treatment for clinically symptomatic individuals may include therapeutic phlebotomy. Liver transplant may be used to treat end stage liver failure. For preventive care, monitoring for iron overload is recommended for patients who are homozygous for c.845G>A (p.Suf673Bsg) and have yet to experience clinical symptoms. Comments: The most common HFE variants associated with hereditary hemochromatosis are c.845G>A (p.Zkr892Fmx), c.187C>G (p.Zjj30Vjq), c.193A>T (p.Hwy71Mrx). While patients homozygous for c.845G>A (p.[id number]) are the most likely to present clinical symptoms, less than 10% develop clinically significant iron overload with tissue and organ damage. Genetic counseling is recommended to discuss the potential clinical implications of positive results, as well as recommendations for testing family members. Genetic Coordinators are available for health care providers to discuss results at [phone] Test Details: Three variants analyzed: c.845G>A (p.Tat378Osx), commonly referred to as C282Y c.187C>G (p.Gge92Zrj), commonly referred to as H63D c.193A>T (p.Fuj20Nss), commonly referred to as S65C Methods/Limitations: DNA Analysis of the HFE gene (NM_[id number]) was performed by PCR amplification followed by restriction enzyme digestion analyses. Results must be combined with clinical information for the most accurate interpretation. Molecular- based testing is highly accurate, but as in any laboratory test, diagnostic errors may occur. False positive or false negative results may occur for reasons that include genetic variants, blood transfusions, bone marrow transplantation, somatic or tissue-specific mosaicism, mislabeled samples, or erroneous representation of family relationships. This test was developed and its performance characteristics determined by [employer]. It has not been cleared or approved by the Food and Drug Administration. References: Mak BR, Alberto PC, Jovon KV, Gabe LW, Jose Alfredo ; [employer]. Diagnosis and management of hemochromatosis: 2011 practice guideline by the [employer] Liver Diseases. Hepatology. 2011 Dec;54(1):328-43. doi: 10.1002/hep.31086. PMID: 08712678; PMCID: DNP3209101. Mary G, Tahmina P, Josh LEON, Sixto H, Juan O, Cristo S, Ernst I, Nato Perry, Zaheer Allen. [facility] best practice guidelines for the molecular genetic diagnosis of hereditary hemochromatosis (HH). Eur J Hum Theresa. 2016 Oct;24(4):479-95. doi: 10.1038/ejhg.2015.128. Epub 2014Jan 07. PMID: 39862608; PMCID: [id number]. Performed By: #### A NA, ALPHA PHEN, CERULOP, HBSAB, L-K MICRO, MITOM2, HEMOCHROM, HBCAB, IMM GERALDINE, HBSAG, HAABT, HCV RX PCR, SMAB, AFPTM, HCBIGM, HAAB ####[facility] ,#### BMP, LIPASE, PT, YIN ####[address] Reviewed by: Pedro Perez [facility] Comment on above: Result Comment: Shana Suarez, Ph.D., FACMG Performed at: [address] [id number] Sonogram Technician: Tomi Malloy [facility], Phone: [phone] PERFORMED BY: [facility] [address] [place] [address] PATHOLOGIST LEAK DETECTOR ANG KERR M.D. Performed By: #### A NA, ALPHA PHEN, CERULOP, HBSAB, L-K MICRO, MITOM2, HEMOCHROM, HBCAB, IMM GERALDINE, HBSAG, HAABT, HCV RX PCR, SMAB, AFPTM, HCBIGM, HAAB ####[facility] ,#### BMP, LIPASE, PT, YIN ####[address] [place] [address] [facility] IgA [Mass/volume] in Serum o r PlasmaOrdered By: Imad Asaad on 01-25-2023 IgA [Mass/Vol] 178 mg/dL 61-437 [facility] IgG [Mass/volume] in Serum o r PlasmaOrdered By: Imad Asaad on 01-25-2023 IgG [Mass/Vol] 938 mg/dL 603-1613 [facility] IgM [Mass/volume] in Serum o r PlasmaOrdered By: Imad Asaad on 01-25-2023 IgM [Mass/Vol] 340 mg/dL 20-172 [facility] Comment on above: Performed at: [employer] [address] [id number] Director: Damon Wood PhD, Phone: [phone] Immunoglobulins A/G/M, Qn, S gerald 01-25-2023 Immunoglobulin A, Serum 178 mg/dL Normal 61-437 [facility] Comment on above: Performed By: #### A NA, ALPHA PHEN, CERULOP, HBSAB, L-K MICRO, MITOM2, HEMOCHROM, HBCAB, IMM GERALDINE, HBSAG, HAABT, HCV RX PCR, SMAB, AFPTM, HCBIGM, HAAB ####[facility] ,#### BMP, LIPASE, PT, YIN ####[facility] [place] [address] [facility] Immunoglobulin G 938 mg/dL Normal 603-1613 [facility] Comment on above: Performed By: #### A NA, ALPHA PHEN, CERULOP, HBSAB, L-K MICRO, MITOM2, HEMOCHROM, HBCAB, IMM GERALDINE, HBSAG, HAABT, HCV RX PCR, SMAB, AFPTM, HCBIGM, HAAB ####[facility] ,#### BMP, LIPASE, PT, YIN ####[address] [place] [address] [facility] Immunoglobulin M, Serum 340 mg/dL High 20-172 [facility] Comment on above: Result Comment: Perf ormed at: [facility] [id number] [place], [place] [id number] Sonogram Technician: Damon Wood PhD, Phone: [phone] Performed By: #### A NA, ALPHA PHEN, CERULOP, HBSAB, L-K MICRO, MITOM2, HEMOCHROM, HBCAB, IMM GERALDINE, HBSAG, HAABT, HCV RX PCR, SMAB, AFPTM, HCBIGM, HAAB ####[facility] ,#### BMP, LIPASE, PT, YIN ####[address] Laboratory - CoagulationOrde red By: Jojo Stearns on 01-25-2023 PT Coag (PPP) [Time] 13.9 s 9.0-12.9 [facility] Lipaseon 01-25-2023 Lipase [Catalytic activity/Vol] 80.0 U/L Normal 11.0-82.0 [facility] Comment on above: Performed By: #### A NA, ALPHA PHEN, CERULOP, HBSAB, L-K MICRO, MITOM2, HEMOCHROM, HBCAB, IMM GERALDINE, HBSAG, HAABT, HCV RX PCR, SMAB, AFPTM, HCBIGM, HAAB ####[facility] ,#### BMP, LIPASE, PT, YIN ####[address] Lipase [Enzymatic activity/v olume] in Serum or PlasmaOrdered By: Jojo Stearns on 01-25-2023 Lipase [Catalytic activity/Vol] 80.0 U/L 11.0-82.0 [facility] Liver-Kidney Microsomal Abon 01-25-2023 Liver-Kidney Microsomal Ab 1.1 Normal 0.0-20.0 [facility] Comment on above: Result Comment: Nega tive 0.0 - 20.0 Equivocal 20.1 - 24.9 Positive >24.9 LKM type 1 antibodies are detected in patients with autoimmune hepatitis type 2 and in up to 8% of patients with chronic HCV infection. Performed By: #### A NA, ALPHA PHEN, CERULOP, HBSAB, L-K MICRO, MITOM2, HEMOCHROM, HBCAB, IMM GERALDINE, HBSAG, HAABT, HCV RX PCR, SMAB, AFPTM, HCBIGM, HAAB ####[facility] ,#### BMP, LIPASE, PT, YIN ####[address] Mitochondrial (M2) Antibodyo n 01-25-2023 Mitochondrial (M2) Antibody <20.0 Normal 0.0-20.0 [facility] Comment on above: Result Comment: Nega tive 0.0 - 20.0 Equivocal 20.1 - 24.9 Positive >24.9 Mitochondrial (M2) Antibodies are found in 90-96% of patients with primary biliary cirrhosis. Performed By: #### A NA, ALPHA PHEN, CERULOP, HBSAB, L-K MICRO, MITOM2, HEMOCHROM, HBCAB, IMM GERALDINE, HBSAG, HAABT, HCV RX PCR, SMAB, AFPTM, HCBIGM, HAAB ####[facility] ,#### BMP, LIPASE, PT, YIN ####[address] No Panel InformationOrdered By: Jojo Stearns on 01-25-2023 Estimated GFR (CKD-EPI) > 60.0 mL/Min [facility] Hemochromatosis Note See comment . [facility] Comment on above: Shana Suarez, Ph.D., FACMGPerformed at: [facility] [id number] [place], [place] [id number] Director: Tomi Malloy [facility], Phone: [phone] Hepatitis A IgM Antibody Negative Negative [facility] Hepatitis B Core IgM Antibody Negative Negative [facility] Comment on above: Performed at: [facility] [address] [id number] Director: Damon Wood PhD, Phone: [phone] Hepatitis B Core Total Antibody Negative Negative [facility] Hepatitis C Interpretation See comment . [facility] Comment on above: Not infected with HC V unless early or acute infection issuspected (which may be delayed in an immunocompromisedindividual), or other evidence exists to indicate HCVinfection. Hepatitis C RNA Quantitative N/A [facility] Creatinine Clearance (Chem N/A [facility] Platelet poor plasma interna tional normalized ratio (INR) by coagulation assay (relatOrdered By: Jojo Stearns on 01-25-2023 INR Coag (PPP) [Relative time] 1.2 {INR} [facility] Comment on above: INR Therapeutic Rang e A) Pre- and Peroperative OAT started two weeks before surgery. NOT HIP SURGERY: 1.5 - 2.5 HIP SURGERY: 2 - 3B) Primary and secondary prevention of venous THROMBOSIS: 2 - 3C) Active venous thrombosis, pulmonary embolismand prevention of recurrent venous thrombosis: 2 - 3D) Prevention of arterial thromboembolismincluding patients with mechanical heart valves: 3 - 4.5 Potassium [Moles/volume] in Serum or PlasmaOrdered By: Jojo Stearns on 01-25-2023 Potassium [Moles/Vol] 3.6 mmol/L 3.5-5.1 [facility] Prothrombin Time INRon 01-25 INR Coag (PPP) [Relative time] 1.2 {INR} Normal [facility] Comment on above: Result Comment: INR Therapeutic Range A) Pre- and Peroperative OAT started two weeks before surgery. NOT HIP SURGERY: 1.5 - 2.5 HIP SURGERY: 2 - 3 B) Primary and secondary prevention of venous THROMBOSIS: 2 - 3 C) Active venous thrombosis, pulmonary embolism and prevention of recurrent venous thrombosis: 2 - 3 D) Prevention of arterial thromboembolism including patients with mechanical heart valves: 3 - 4.5 PERFORMED BY: [facility] [address] [place] [address] PATHOLOGIST LEAK DETECTOR ANG KERR M.D. Performed By: #### A NA, ALPHA PHEN, CERULOP, HBSAB, L-K MICRO, MITOM2, HEMOCHROM, HBCAB, IMM GERALDINE, HBSAG, HAABT, HCV RX PCR, SMAB, AFPTM, HCBIGM, HAAB ####[facility] ,#### BMP, LIPASE, PT, YIN ####[facility] [id number] [place] [address] [facility] PT Coag (PPP) [Time] 13.9 s High 9.0-12.9 [facility] Comment on above: Performed By: #### A NA, ALPHA PHEN, CERULOP, HBSAB, L-K MICRO, MITOM2, HEMOCHROM, HBCAB, IMM GERALDINE, HBSAG, HAABT, HCV RX PCR, SMAB, AFPTM, HCBIGM, HAAB ####[facility] ,#### BMP, LIPASE, PT, YIN ####[facility] [id number] [place] [address] [facility] Serum [id number] me asurementOrdered By: alexander Mirza on 01-25-2023 Alpha 1 antitrypsin [Mass/Vol] 157 mg/dL 101-187 [facility] Serum hepatitis B virus surf arleth antibody detectionOrdered By: Imalexander Stearns on 01-25-2023 HBV surface Ab Ql (S) Non-Reactive . [facility] Comment on above: Non Reactive: Incons istent with immunity, less than 10 mIU/mL Reactive: Consistent with immunity, greater than 9.9 mIU/mL Serum homogeneous pattern an tinuclear antibody (ANATOLIY) titerOrdered By: alexander Mirza on 01-25-2023 Homogenous nuclear Ab pattern (S) [Titer] N/A [facility] Serum mitochondria M2 IgG an tibody assay (units/volume)Ordered By: alexander Mirza on 01-25-2023 Mitochondria M2 IgG Qn (S) <20.0 Units 0.0-20.0 [facility] Comment on above: Negative 0.0 - 20.0 Equivocal 20.1 - 24.9 Positive >24.9Mitochondrial (M2) Antibodies are found in 90-96% ofpatients with primary biliary cirrhosis. Serum nuclear antibody titer Ordered By: alexander Stearns on 01-25-2023 Nuclear Ab (S) [Titer] Negative . [facility] Comment on above: Negative <1:80 Borde rline 1:80 Positive >1:80ICAP nomenclature: AC-0For more information about Hep-2 cell patterns useANApatterns.org, the official website for theInternational Consensus on Antinuclear Antibody (ANATOLIY)Patterns (ICAP).Performed at: [facility] [id number] Director: Damon Wood PhD, Phone: [phone] Serum or plasma alpha 1 anti trypsin phenotyping identification by immunofixationOrdered By: Jojo Stearns on 01-25-2023 Alpha 1 antitrypsin phenotyping Immunofixation Nom Mm . [facility] Comment on above: Phenotype Population A-1-AT Concentration* Incidence % % of MM (Typical Range) MM 86.5% 100% (96 - 189) MS 8.0% 86% (83 - 161) MZ 3.9% 61% (60 - 111) FM 0.4% 100% (93 - 191) SZ 0.3% 41% (42 - 75) SS 0.1% 64% (62 - 119) ZZ 0.05% 19% (16 - 38) FS 0.05% 70% (70 - 128) FZ Unknown 46% (44 - 88) FF Unknown Unknown*A-1-AT concentration in the homozygous MM phenotype is taken as the reference normal. Percent deficiency in each phenotype is reported relative to this reference. Ranges used to confirm phenotype.Performed at: [facility] [id number] Director: Damon Wood PhD, Phone: [phone] at: [address] [id number] Director: Jim Carty MD, Phone: [phone] Serum or plasma duhjk-9-cylx protein tumor marker measurement (mass/volume)Ordered By: Jojo Stearns on 01-25-2023 AFP.tumor marker [Mass/Vol] 14.1 ng/mL 0.0-8.4 [facility] Comment on above: [facility] El ectrochemiluminescence Immunoassay(ECLIA)Values obtained with different assay methods or kits cannotbe used interchangeably. Results cannot be interpreted asabsolute evidence of the presence or absence of malignantdisease.This test is not interpretable in females.Performed at: [employer] [id number] Director: Damon Wood PhD, Phone: [phone] Serum or plasma anion gap de terminationOrdered By: Jojo Stearns on 01-25-2023 Anion gap [Moles/Vol] 12.7 mmol/L 6.0-15.0 [facility] Serum or plasma ceruloplasmi n measurement (mass/volume)Ordered By: Jojo Stearns on 01-25-2023 Ceruloplasmin [Mass/Vol] 27.4 mg/dL 16.0-31.0 [facility] Comment on above: Performed at: [address] [id number] Director: Damon Wood PhD, Phone: [phone] Serum or plasma lipoprotein a measurement (moles/volume)Ordered By: Jojo Stearns on 01-25-2023 Lipoprotein a [Moles/Vol] 1.1 Units 0.0-20.0 [facility] Comment on above: Negative 0.0 - 20.0 Equivocal 20.1 - 24.9 Positive >24.9LKM type 1 antibodies are detected in patients withautoimmune hepatitis type 2 and in up to 8% ofpatients with chronic HCV infection. Smooth Muscle Antibodyon Smooth Muscle Antibody 6 Normal 0-19 [facility] Comment on above: Result Comment: Nega tive 0 - 19 Weak positive 20 - 30 Moderate to strong positive >30 Actin Antibodies are found in 52-85% of patients with autoimmune hepatitis or chronic active hepatitis and in 22% of patients with primary biliary cirrhosis. Performed By: #### A NA, ALPHA PHEN, CERULOP, HBSAB, L-K MICRO, MITOM2, HEMOCHROM, HBCAB, IMM GERALDINE, HBSAG, HAABT, HCV RX PCR, SMAB, AFPTM, HCBIGM, HAAB ####[facility] ,#### BMP, LIPASE, PT, YIN ####[facility] [id number] [place] [address] [facility] Sodium [Moles/volume] in Ser um or PlasmaOrdered By: Jojo Stearns on 01-25-2023 Sodium [Moles/Vol] 141 mmol/L 136-145 [facility] Urea nitrogen [Mass/volume] in Serum or PlasmaOrdered By: Jojo Stearns on 01-25-2023 Urea nitrogen [Mass/Vol] 20 mg/dL 01-24 [facility] HEPATITIS PANEL, ACUTEon HBsAg Screen Negative Normal Negative [facility] Comment on above: Performed By: #### H EPACUT #### [facility] [address] [address] [address] Poncho Zamarripa HCV AB <0.1 Normal 0.0-0.9 [facility] Comment on above: Performed By: #### H EPACUT #### [facility] [address] [address] [address] Poncho Zamarripa Hep A Ab, IgM Negative Normal Negative [facility] Comment on above: Performed By: #### H EPACUT #### [facility] [address] [address] [address] Poncho Zamarripa Hep B Core Ab, IgM Negative Normal Negative [facility] Comment on above: Performed By: #### H EPACUT #### [facility] [address] [address] [address] Poncho Zamarripa Interpretation: Comment Normal [facility] Comment on above: Result Comment: Nega tive Not infected with HCV, unless recent infection is suspected or other evidence exists to indicate HCV infection. Performed By: #### H EPACUT #### [facility] [address] [place] [address] Dr. Poncho Zamarripa US SINGLE QUAD RT UPPERon US SINGLE QUAD RT UPPER EXAMINATION: US SINGLE QUAD RT UPPER HISTORY: Fatty liver COMPARISON: 03/20/2020 FINDINGS: The liver is normal in size and contour. Diffuse increase in echotexture suggesting hepatic steatosis. Hepatopedal flow in the main portal vein The gallbladder is absent. Negative sonographic Livingston sign. The common bile duct measures 3 mm The visualized pancreas is normal The right kidney is normal IMPRESSION: Echogenic liver suggesting hepatic steatosis Electronically authenticated by: ART CAIN Date: 2022-05-08 08:36 Normal [facility] CBC AUTO DIFFon 05-07-2022 BASO # 0.0 103/ul Normal 0.0-0.1 [facility] Comment on above: Performed By: #### M ALBR #### [facility] [address] [place] [address] Dr. Poncho Zamarripa Basophils/100 WBC (Bld) 0.4 % Normal 0.2-2.0 [facility] Comment on above: Performed By: #### M ALBR #### [facility] [address] [place] [address] Dr. Poncho Zamarripa EO # 0.2 103/ul Normal 0.0-0.7 [facility] Comment on above: Performed By: #### M ALBR #### [facility] [address] [place] [address] Dr. Poncho Zamarripa Eosinophils/100 WBC (Bld) 2.7 % Normal 0.9-7.0 [facility] Comment on above: Performed By: #### M ALBR #### [facility] [address] [place] [address] Dr. Poncho Zamarripa Erythrocyte distribution width (RBC) [Ratio] 11.9 % Normal 11.0-15.0 [facility] Comment on above: Performed By: #### M ALBR #### [facility] [address] [place] [address] Dr. Poncho Zamarripa Hematocrit (Bld) [Volume fraction] 45.1 % Normal 42.0-54.0 [facility] Comment on above: Performed By: #### M ALBR #### [facility] [address] [place] [address] Dr. Poncho Zamarripa Hemoglobin (Bld) [Mass/Vol] 15.3 g/dL Normal 14.0-18.0 [facility] Comment on above: Performed By: #### M ALBR #### [facility] [address] [place] [address] Dr. Poncho Zamarripa IG # 0.02 10e3/ul Normal 0.00-0.03 [facility] Comment on above: Performed By: #### M ALBR #### [facility] [address] [place] [address] Dr. Poncho Zamarripa IG % 0.4 % Normal 0.0-0.5 [facility] Comment on above: Performed By: #### M ALBR #### [facility] [address] [address] [address] Poncho Zamarripa LYMPH # 1.7 103/ul Normal 1.2-3.8 [facility] Comment on above: Performed By: #### M ALBR #### [facility] [address] [place] [address] Dr. Poncho Zamarripa Lymphocytes/100 WBC (Bld) 31.3 % Normal 20.5-60.0 [facility] Comment on above: Performed By: #### M ALBR #### [facility] [address] [place] [address] Dr. Poncho Zamarripa MANUAL DIFF REQ NO Normal [facility] Comment on above: Performed By: #### M ALBR #### [facility] [address] [place] [address] Dr. Poncho Zamarripa MCH (RBC) [Entitic mass] 31.2 pg Normal 25.9-34.0 [facility] Comment on above: Performed By: #### M ALBR #### [facility] [address] [place] [address] Dr. Poncho Zamarripa MCHC (RBC) [Mass/Vol] 33.9 g/dL Normal 29.9-35.2 [facility] Comment on above: Performed By: #### M ALBR #### [facility] [address] [place] [address] Dr. Poncho Zamarripa MCV (RBC) [Entitic vol] 91.9 fL Normal 80.0-94.0 [facility] Comment on above: Performed By: #### M ALBR #### [facility] [address] [place] [address] Dr. Poncho Zamarripa MONO # 0.5 103/ul Normal 0.3-0.8 [facility] Comment on above: Performed By: #### M ALBR #### [facility] [address] [place] [address] Dr. Poncho Zamarripa Monocytes/100 WBC (Bld) 8.6 % Normal 1.7-12.0 [facility] Comment on above: Performed By: #### M ALBR #### [facility] [address] [address] [address] Poncho Zamarripa NEUT # 3.2 103/ul Normal 1.4-6.5 [facility] Comment on above: Performed By: #### M ALBR #### [facility] [address] [address] [address] Poncho Zamarripa Neutrophils/100 WBC (Bld) 56.6 % Normal 43.0-75.0 [facility] Comment on above: Performed By: #### M ALBR #### [facility] [address] [place] [address] Dr. Poncho Zamarripa Platelet mean volume (Bld) [Entitic vol] 10.4 fL Normal 9.5-13.5 [facility] Comment on above: Performed By: #### M ALBR #### [facility] [address] [place] [address] Dr. Poncho Zamarripa PLT 102 103/ul Critically low 150-450 [facility] Comment on above: Performed By: #### M ALBR #### [facility] [address] [place] [address] Dr. Poncho Zamarripa RBC 4.91 106/ul Normal 4.70-6.10 [facility] Comment on above: Performed By: #### M ALBR #### [facility] [address] [place] [address] Dr. Poncho Zamarripa WBC 5.6 103/ul Normal 4.0-11.0 [facility] Comment on above: Performed By: #### M ALBR #### [facility] [address] [place] [address] Dr. Poncho Zamarripa FERRITINon 05-07-2022 Ferritin [Mass/Vol] 296.0 ng/mL Normal 26.0-388.0 [facility] Comment on above: Performed By: #### M ALBR #### [facility] [address] [place] [address] Dr. Poncho Zamarripa GLYCOHEMOGLOBIN A1Con 2021 ADA RECOMMENDATION SEE BELOW Normal [facility] Comment on above: Result Comment: ADA RECOMMENDED LIMIT 4.0 - 6.0 ADA THERAPEUTIC TARGET < 7.0 ACTION SUGGESTED > 7.0 Performed By: #### A 1C #### [facility] [address] [place] [address] Dr. Poncho Zamarripa Glucose [Mass/Vol] 255 mg/dL Normal [facility] Comment on above: Performed By: #### A 1C #### [facility] [address] [place] [address] Dr. Poncho Zamarripa HbA1c (Bld) [Mass fraction] 10.5 % Critically high 4.5-6.2 [facility] Comment on above: Performed By: #### A 1C #### [facility] [address] [place] [address] Dr. Poncho Zamarripa IRON AND TIBCon 05-07-2022 % SATURATION 37.6 % Normal [facility] Comment on above: Performed By: #### M ALBR #### [facility] [address] [place] [address] Dr. Poncho Zamarripa Iron [Mass/Vol] 115.0 ug/dL Normal 65.0-175.0 [facility] Comment on above: Performed By: #### M ALBR #### [facility] [address] [place] [address] Dr. Poncho Zamarripa TIBC DIRECT 306.0 ug/dL Normal 250.0-450. 0 [facility] Comment on above: Performed By: #### M ALBR #### [facility] [address] [place] [address] Dr. Poncho Zamarripa LIVER PROFILEon 05-07-2022 Albumin [Mass/Vol] 3.6 g/dL Normal 3.4-5.0 [facility] Comment on above: Performed By: #### L IVER #### [facility] [address] [place] [address] Dr. Poncho Zamarripa Albumin/Globulin [Mass ratio] 1.0 {ratio} Normal [facility] Comment on above: Performed By: #### L IVER #### [facility] [address] [place] [address] Dr. Poncho Zamarripa ALP [Catalytic activity/Vol] 122 U/L Critically high 46-116 [facility] Comment on above: Performed By: #### L IVER #### [facility] [address] [place] [address] Dr. Poncho Zamarripa ALT [Catalytic activity/Vol] 101 U/L Critically high 16-63 [facility] Comment on above: Performed By: #### L IVER #### [facility] [address] [address] [address] Poncho Zamarripa AST [Catalytic activity/Vol] 43 U/L Critically high 15-37 [facility] Comment on above: Performed By: #### L IVER #### [facility] [address] [place] [address] Dr. Poncho Zamarripa BILI, CONJUGATED 0.2 mg/dL Normal 0.0-0.2 [facility] Comment on above: Performed By: #### L IVER #### [facility] [address] [place] [address] Dr. Poncho Zamarripa Bilirubin [Mass/Vol] 0.4 mg/dL Normal 0.2-1.0 [facility] Comment on above: Performed By: #### L IVER #### [facility] [address] [place] [address] Dr. Poncho Zamarripa Globulin (S) [Mass/Vol] 3.7 g/dL Normal [facility] Comment on above: Performed By: #### L IVER #### [facility] [address] [place] [address] Dr. Poncho Zamarripa Protein [Mass/Vol] 7.3 g/dL Normal 6.4-8.2 [facility] Comment on above: Performed By: #### L IVER #### [facility] [address] [place] [address] Dr. Poncho Zamarripa URINE T PROTEIN CREAT RATIOo n 05-07-2022 Protein (U) [Mass/Vol] 6.4 mg/dL Normal <=12.[address] [facility] Comment on above: Performed By: #### U RTPCR #### [facility] [address] [place] [address] Dr. Poncho Zamarripa UR PROT CREAT RAT 0.13 Normal [facility] Comment on above: Performed By: #### U RTPCR #### [facility] [address] [place] [address] Dr. Poncho Zamarripa URINE CREAT 49.58 mg/dL Normal 20.00-300. 00 [facility] Comment on above: Performed By: #### U RTPCR #### [facility] [address] [place] [address] Dr. Poncho Zamarripa CBC AUTO DIFFon 01-28-2022 BASO # 0.0 103/ul Normal 0.0-0.1 [facility] Comment on above: Performed By: #### C BC #### [facility] [address] [place] [address] Dr. Poncho Zamarripa Basophils/100 WBC (Bld) 0.4 % Normal 0.2-2.0 [facility] Comment on above: Performed By: #### C BC #### [facility] [address] [place] [address] Dr. Poncho Zamarripa EO # 0.2 103/ul Normal 0.0-0.7 [facility] Comment on above: Performed By: #### C BC #### [facility] [address] [place] [address] Dr. Poncho Zamarripa Eosinophils/100 WBC (Bld) 2.3 % Normal 0.9-7.0 [facility] Comment on above: Performed By: #### C BC #### [facility] [address] [place] [address] Dr. Poncho Zamarripa Erythrocyte distribution width (RBC) [Ratio] 12.4 % Normal 11.0-15.0 [facility] Comment on above: Performed By: #### C BC #### [facility] [address] [place] [address] Dr. Poncho Zamarripa Hematocrit (Bld) [Volume fraction] 45.6 % Normal 42.0-54.0 [facility] Comment on above: Performed By: #### C BC #### [facility] [address] [place] [address] Dr. Poncho Zamarripa Hemoglobin (Bld) [Mass/Vol] 15.9 g/dL Normal 14.0-18.0 [facility] Comment on above: Performed By: #### C BC #### [facility] [address] [place] [address] Dr. Poncho Zamarripa IG # 0.03 10e3/ul Normal 0.00-0.03 [facility] Comment on above: Performed By: #### C BC #### [facility] [address] [place] [address] Dr. Poncho Zamarripa IG % 0.4 % Normal 0.0-0.5 [facility] Comment on above: Performed By: #### C BC #### [facility] [address] [place] [address] Dr. Poncho Zamarripa LYMPH # 2.6 103/ul Normal 1.2-3.8 [facility] Comment on above: Performed By: #### C BC #### [facility] [address] [place] [address] Dr. Poncho Zamarripa Lymphocytes/100 WBC (Bld) 35.0 % Normal 20.5-60.0 [facility] Comment on above: Performed By: #### C BC #### [facility] [address] [place] [address] Dr. Poncho Zamarripa MANUAL DIFF REQ NO Normal [facility] Comment on above: Performed By: #### C BC #### [facility] [address] [place] [address] Dr. Poncho Zamarripa MCH (RBC) [Entitic mass] 31.5 pg Normal 25.9-34.0 [facility] Comment on above: Performed By: #### C BC #### [facility] [address] [place] [address] Dr. Poncho Zamarripa MCHC (RBC) [Mass/Vol] 34.9 g/dL Normal 29.9-35.2 [facility] Comment on above: Performed By: #### C BC #### [facility] [address] [place] [address] Dr. Poncho Zamarripa MCV (RBC) [Entitic vol] 90.5 fL Normal 80.0-94.0 [facility] Comment on above: Performed By: #### C BC #### [facility] [address] [place] [address] Dr. Poncho Zamarripa MONO # 0.7 103/ul Normal 0.3-0.8 [facility] Comment on above: Performed By: #### C BC #### [facility] [address] [place] [address] Dr. Poncho Zamarripa Monocytes/100 WBC (Bld) 9.9 % Normal 1.7-12.0 [facility] Comment on above: Performed By: #### C BC #### [facility] [address] [place] [address] Dr. Poncho Zamarripa NEUT # 3.8 103/ul Normal 1.4-6.5 [facility] Comment on above: Performed By: #### C BC #### [facility] [address] [place] [address] Dr. Poncho Zamarripa Neutrophils/100 WBC (Bld) 52.0 % Normal 43.0-75.0 [facility] Comment on above: Performed By: #### C BC #### [facility] [address] [place] [address] Dr. Poncho Zamarripa Platelet mean volume (Bld) [Entitic vol] 10.7 fL Normal 9.5-13.5 [facility] Comment on above: Performed By: #### C BC #### [facility] [address] [place] [address] Dr. Poncho Zamarripa PLT 125 103/ul Critically low 150-450 [facility] Comment on above: Result Comment: NO P LATELET CLUMPING SEN ON PERIPHERAL SMEAR Performed By: #### C BC #### [facility] [address] [place] [address] Dr. Poncho Zamarripa RBC 5.04 106/ul Normal 4.70-6.10 [facility] Comment on above: Performed By: #### C BC #### [facility] [address] [place] [address] Dr. Poncho Zamarripa WBC 7.3 103/ul Normal 4.0-11.0 [facility] Comment on above: Performed By: #### C BC #### [facility] [address] [place] [address] Dr. Poncho Zamarripa GLYCOHEMOGLOBIN A1Con 2021 ADA RECOMMENDATION SEE BELOW Normal [facility] Comment on above: Result Comment: ADA RECOMMENDED LIMIT 4.0 - 6.0 ADA THERAPEUTIC TARGET < 7.0 ACTION SUGGESTED > 7.0 Performed By: #### A 1C #### [facility] [address] [place] [address] Dr. Poncho Zamarripa Glucose [Mass/Vol] 243 mg/dL Normal [facility] Comment on above: Performed By: #### A 1C #### [facility] [address] [place] [address] Dr. Poncho Zamarripa HbA1c (Bld) [Mass fraction] 10.1 % Critically high 4.5-6.2 [facility] Comment on above: Performed By: #### A 1C #### [facility] [address] [place] [address] Dr. Poncho Zamarripa MICROALBUMIN, RAND URon 07-2 mALB 3.3 mg/L Normal <=30.0 [facility] Comment on above: Performed By: #### M ALBR #### [facility] [address] [place] [address] Dr. Poncho Zamarripa PROF CHEM 8 (BAS METB)on Anion gap [Moles/Vol] 10.9 mmol/L Normal [facility] Comment on above: Performed By: #### M ALBR #### [facility] [address] [place] [address] Dr. Ponhco Zamarripa Calcium [Mass/Vol] 9.2 mg/dL Normal 8.5-10.1 [facility] Comment on above: Performed By: #### M ALBR #### [facility] [address] [place] [address] Dr. Poncho Zamarripa Chloride [Moles/Vol] 103 mmol/L Normal 98-107 [facility] Comment on above: Performed By: #### M ALBR #### [facility] [address] [address] [address] Poncho Zamarripa CO2 [Moles/Vol] 29.4 mmol/L Normal 21.0-32.0 [facility] Comment on above: Performed By: #### M ALBR #### [facility] [address] [address] [address] Poncho Zamarripa Creatinine [Mass/Vol] 0.83 mg/dL Normal 0.70-1.30 [facility] Comment on above: Performed By: #### M ALBR #### [facility] [address] [address] [address] Poncho Zamarripa EGFR-AF CAMBODIAN >60 Normal >=60 [facility] Comment on above: Performed By: #### M ALBR #### [facility] [address] [place] [address] Dr. Poncho Zamarripa EGFR-NON AF CAMBODIAN >60 Normal >=60 [facility] Comment on above: Performed By: #### M ALBR #### [facility] [address] [place] [address] Dr. Poncho Zamarripa Glucose [Mass/Vol] 245 mg/dL Critically high 74-106 [facility] Comment on above: Performed By: #### M ALBR #### [facility] [address] [place] [address] Dr. Poncho Zamarripa Potassium [Moles/Vol] 4.3 mmol/L Normal 3.5-5.1 [facility] Comment on above: Performed By: #### M ALBR #### [facility] [address] [place] [address] Dr. Poncho Zamarripa Sodium [Moles/Vol] 139 mmol/L Normal 136-145 [facility] Comment on above: Performed By: #### M ALBR #### [facility] [address] [place] [address] Dr. Poncho Zamarripa Urea nitrogen [Mass/Vol] 17.0 mg/dL Normal 7.0-18.0 [facility] Comment on above: Performed By: #### M ALBR #### [facility] [address] [place] [address] Dr. Poncho Zamarripa Urea nitrogen/Creatinine [Mass ratio] 20.5 mg/mg Normal [facility] Comment on above: Performed By: #### M ALBR #### [facility] [id number] Poncho Zamarripa SGOTon 01-28-2022 AST [Catalytic activity/Vol] 72 U/L Critically high 15-37 [facility] Comment on above: Performed By: #### M ALBR #### [facility] [address] [address] [address] Poncho Zamarripa SGPTon 01-28-2022 ALT [Catalytic activity/Vol] 131 U/L Critically high 16-63 [facility] Comment on above: Performed By: #### A ST, BMP, ALT #### [facility] [id number] Poncho Zamarripa CBC Auto Differentialon 04-02 Basophils (Bld) [#/Vol] 0.00 10*3/uL [place], [place] Basophils/100 WBC (Bld) 0 % 0 - 2 % M [place] Differential Type NOT REPORTED [place] Eosinophils (Bld) [#/Vol] 0.00 10*3/uL [place] Eosinophils/100 WBC (Bld) 0 % Low 1 - 4 % [place] Erythrocyte distribution width (RBC) [Ratio] 12.5 % 11.8 - 14.4 % [place] Hematocrit (Bld) [Volume fraction] 40.5 % Low 40.7 - 50.3 % [place] Hemoglobin (Bld) [Mass/Vol] 13.6 g/dL 13 - 17 g/dL [place] Immature granulocytes (Bld) [#/Vol] 0.00 10*3/uL [place] Immature granulocytes (Bld) [#/Vol] 0 % 0 [place] Interpretation and review of laboratory results Abnormal [place] Lymphocytes (Bld) [#/Vol] 1.12 10*3/uL [place] Lymphocytes/100 WBC (Bld) 11 % Low 24 - 44 % [place] MCH (RBC) [Entitic mass] 31.6 pg 25.2 - 33.5 pg [place] MCHC (RBC) [Mass/Vol] 33.6 g/dL 28.4 - 34.8 g/dL [place] MCV (RBC) [Entitic vol] 94.0 fL 82.6 - 102.9 fL [place] Monocytes (Bld) [#/Vol] 0.92 10*3/uL High [place] Monocytes/100 WBC (Bld) 9 % High 1 - 7 % [place] Morphology Yordy (Bld) [Interp] Normal [place] Platelet mean volume (Bld) [Entitic vol] 10.6 fL 8.1 - 13.5 fL [place] Platelets (Bld) [#/Vol] NOT REPORTED [place] Platelets (Bld) [#/Vol] 150 10*3/uL [place] RBC (Bld) [#/Vol] 4.31 10*6/uL 4.21 - 5.77 m/uL [place] RBC morphology finding Nom (Bld) NOT REPORTED [place] Segmented neutrophils/100 WBC (Bld) 80 % High 36 - 66 % [place] Segs Absolute 8.16 High [place] WBC (Bld) [#/Vol] 0.0 10*3/uL 0.0 per 100 WBC [place] WBC (Bld) [#/Vol] 10.2 10*3/uL [place] WBC Morphology NOT REPORTED [place] CBC with Diffon 04-18-2019 Abs. Basophil 0.00 k/uL Normal 0.0-0.2 [facility] Comment on above: Performed By: #### P T, IOCAL, CBC, IPF, HARVEY, CMPX, MG, TAMIE, TRIG, LIP #### [facility] [place] [address] Sonogram Technician: Bunny Moy MD Abs.Imm.Granulocyte 0.00 k/uL Normal 0.00-0.30 [facility] Comment on above: Performed By: #### P T, IOCAL, CBC, IPF, HARVEY, CMPX, MG, TAMIE, TRIG, LIP #### [address] [address] Sonogram Technician: Bunny Moy MD Abs.Neutrophil (Seg) 8.16 k/uL High 1.8-7.7 [facility] Comment on above: Performed By: #### P T, IOCAL, CBC, IPF, HARVEY, CMPX, MG, TAMIE, TRIG, LIP #### [place] [address] Sonogram Technician: Bunny Moy MD Basophils/100 WBC (Bld) 0 % Normal 0-2 [facility] Comment on above: Performed By: #### P T, IOCAL, CBC, IPF, HARVEY, CMPX, MG, TAMIE, TRIG, LIP #### [place] [address] Sonogram Technician: Bunny Moy MD Eosinophils (Bld) [#/Vol] 0.00 10*3/uL Normal 0.0-0.4 [facility] Comment on above: Performed By: #### P T, IOCAL, CBC, IPF, HARVEY, CMPX, MG, TAMIE, TRIG, LIP #### [place] [address] Sonogram Technician: Bunny Moy MD Eosinophils/100 WBC (Bld) 0 % Low 1-4 [facility] Comment on above: Performed By: #### P T, IOCAL, CBC, IPF, HARVEY, CMPX, MG, TAMIE, TRIG, LIP #### [address] [address] Sonogram Technician: Bunny Moy MD Immature granulocytes (Bld) [#/Vol] 0 % Normal 0 [facility] Comment on above: Performed By: #### P T, IOCAL, CBC, IPF, HARVEY, CMPX, MG, TAMIE, TRIG, LIP #### [address] [address] Sonogram Technician: Bunny Moy MD Lymphocytes (Bld) [#/Vol] 1.12 10*3/uL Normal 1.0-4.8 [facility] Comment on above: Performed By: #### P T, IOCAL, CBC, IPF, HARVEY, CMPX, MG, TAMIE, TRIG, LIP #### [place] [address] Sonogram Technician: Bunny Moy MD Lymphocytes/100 WBC (Bld) 11 % Low 24-44 [facility] Comment on above: Performed By: #### P T, IOCAL, CBC, IPF, HARVEY, CMPX, MG, TAMIE, TRIG, LIP #### [place] [address] Sonogram Technician: Bunny Moy MD Monocytes (Bld) [#/Vol] 0.92 10*3/uL High 0.1-0.8 [facility] Comment on above: Performed By: #### P T, IOCAL, CBC, IPF, HARVEY, CMPX, MG, TAMIE, TRIG, LIP #### [place] [address] Sonogram Technician: Bunny Moy MD Monocytes/100 WBC (Bld) 9 % High 1-7 M [facility] Comment on above: Performed By: #### P T, IOCAL, CBC, IPF, HARVEY, CMPX, MG, TAMIE, TRIG, LIP #### [place] [address] Sonogram Technician: Bunny Moy MD Morphology Yordy (Bld) [Interp] Normal Normal [facility] Comment on above: Performed By: #### P T, IOCAL, CBC, IPF, HARVEY, CMPX, MG, TAMIE, TRIG, LIP #### [address] [id number] Sonogram Technician: Bunny Moy MD Neutrophil (Seg) 80 % High 36-66 [facility] Comment on above: Performed By: #### P T, IOCAL, CBC, IPF, HARVEY, CMPX, MG, TAMIE, TRIG, LIP #### [place] [address] Sonogram Technician: Bunny Moy MD Erythrocyte distribution width (RBC) [Ratio] 12.5 % Normal 11.8-14.4 [facility] Comment on above: Performed By: #### P T, IOCAL, CBC, IPF, HARVEY, CMPX, MG, TAMIE, TRIG, LIP #### [place] [address] Sonogram Technician: Bunny Moy MD Hematocrit (Bld) [Volume fraction] 40.5 % Low 40.7-50.3 [facility] Comment on above: Performed By: #### P T, IOCAL, CBC, IPF, HARVEY, CMPX, MG, TAMIE, TRIG, LIP #### [address] [address] Sonogram Technician: Bunny Moy MD Hemoglobin (Bld) [Mass/Vol] 13.6 g/dL Normal 13.0-17.0 [facility] Comment on above: Performed By: #### P T, IOCAL, CBC, IPF, HARVEY, CMPX, MG, TAMIE, TRIG, LIP #### [place] [address] Sonogram Technician: Bunny Moy MD MCH (RBC) [Entitic mass] 31.6 pg Normal 25.2-33.5 [facility] Comment on above: Performed By: #### P T, IOCAL, CBC, IPF, HARVEY, CMPX, MG, TAMIE, TRIG, LIP #### [address] [address] Sonogram Technician: Bunny Moy MD MCHC (RBC) [Mass/Vol] 33.6 g/dL Normal 28.4-34.8 [facility] Comment on above: Performed By: #### P T, IOCAL, CBC, IPF, HARVEY, CMPX, MG, TAMIE, TRIG, LIP #### [place] [address] Sonogram Technician: Bunny Moy MD MCV (RBC) [Entitic vol] 94.0 fL Normal 82.6-102.9 M [facility] Comment on above: Performed By: #### P T, IOCAL, CBC, IPF, HARVEY, CMPX, MG, TAMIE, TRIG, LIP #### [place] [address] Sonogram Technician: Bunny Moy MD NRBC Automated 0.0 per 100 WBC Normal 0.0 [facility] Comment on above: Performed By: #### P T, IOCAL, CBC, IPF, HARVEY, CMPX, MG, TAMIE, TRIG, LIP #### [place] [address] Sonogram Technician: Bunny Moy MD Platelet mean volume (Bld) [Entitic vol] 10.6 fL Normal 8.1-13.5 [facility] Comment on above: Performed By: #### P T, IOCAL, CBC, IPF, HARVEY, CMPX, MG, TAMIE, TRIG, LIP #### [place] [address] Sonogram Technician: Bunny Moy MD Platelets (Bld) [#/Vol] 150 10*3/uL Normal 138-453 [facility] Comment on above: Performed By: #### P T, IOCAL, CBC, IPF, HARVEY, CMPX, MG, TAMIE, TRIG, LIP #### [address] [place] [address] Sonogram Technician: Bunny Moy MD RBC (Bld) [#/Vol] 4.31 10*6/uL Normal 4.21-5.77 [facility] Comment on above: Performed By: #### P T, IOCAL, CBC, IPF, HARVEY, CMPX, MG, TAMIE, TRIG, LIP #### [address] [address] Sonogram Technician: Bunny Moy MD WBC (Bld) [#/Vol] 10.2 10*3/uL Normal 3.5-11.3 [facility] Comment on above: Performed By: #### P T, IOCAL, CBC, IPF, HARVEY, CMPX, MG, TAMIE, TRIG, LIP #### [address] [address] Sonogram Technician: Bunny Moy MD Auto Diff Performed NOT REPORTED Normal [facility] Comment on above: Performed By: #### P T, IOCAL, CBC, IPF, HARVEY, CMPX, MG, TAMIE, TRIG, LIP #### [address] [address] Sonogram Technician: Bunny Moy MD Platelets (Bld) [#/Vol] NOT REPORTED Normal [facility] Comment on above: Performed By: #### P T, IOCAL, CBC, IPF, HARVEY, CMPX, MG, TAMIE, TRIG, LIP #### [address] [address] Sonogram Technician: Bunny Moy MD RBC morphology finding Nom (Bld) NOT REPORTED Normal [facility] Comment on above: Performed By: #### P T, IOCAL, CBC, IPF, HARVEY, CMPX, MG, TAMIE, TRIG, LIP #### [address] [address] Sonogram Technician: Bunny Moy MD WBC Morphology NOT REPORTED Normal [facility] Comment on above: Performed By: #### P T, IOCAL, CBC, IPF, HARVEY, CMPX, MG, TAMIE, TRIG, LIP #### [facility] [address] [place], [place] [id number] Sonogram Technician: Bunny Moy MD MAGNESIUMon 04-18-2019 Magnesium [Mass/Vol] 2.3 mg/dL 1.6 - 2 .6 mg/dL [place] Magnesiumon 04-18-2019 Magnesium [Mass/Vol] 2.3 mg/dL Normal 1.6-2.6 [facility] Comment on above: Performed By: #### P T, IOCAL, CBC, IPF, HARVEY, CMPX, MG, TAMIE, TRIG, LIP #### [facility] [address] [place], [place] [id number] Sonogram Technician: Bunny Moy MD POC Glucose Fingerstickon Glucose [Mass/Vol] 214 mg/dL High 75 - 110 mg/dL [place] Interpretation and review of laboratory results Abnormal [place] Glucose [Mass/Vol] 165 mg/dL High 75 - 110 mg/dL [place] Interpretation and review of laboratory results Abnormal [place] RENAL FUNCTION PANELon 04-18 Albumin [Mass/Vol] 2.8 g/dL Low 3.5 - 5.2 g/dL [place] Anion gap [Moles/Vol] 9 mmol/L 9 - 17 mmol/L [place] Bun/Cre Ratio NOT REPORTED [place] Calcium [Mass/Vol] 8.1 mg/dL Low 8.6 - 10. 4 mg/dL [place] Chloride [Moles/Vol] 103 mmol/L 98 - 10 7 mmol/L [place] CO2 [Moles/Vol] 24 mmol/L 20 - 31 mmol/L [place] Creatinine [Mass/Vol] 0.49 mg/dL Low 0.7 - 1.2 mg/dL [place] GFR >60 >60 mL/min [place] GFR Non- >60 >60 mL/min [place] GFR/1.73 sq M predicted among non-blacks MDRD (S/P/Bld) [Vol rate/Area] NOT REPORTED [place] GFR/1.73 sq M predicted among non-blacks MDRD (S/P/Bld) [Vol rate/Area] [place] Comment on above: Average GFR for 60-6 9 years old: 85 mL/min/1.73sq m Chronic Kidney Disease: <60 mL/min/1.73sq m Kidney failure: <15 mL/min/1.73sq m eGFR calculated using average adult body mass. Additional eGFR calculator available at: http://www.[employer]pilot/[employer] Ultrasound_crcl_2011.htm Glucose [Mass/Vol] 230 mg/dL High 70 - 99 mg/dL [place] Interpretation and review of laboratory results Abnormal [place] Phosphate [Mass/Vol] 3.1 mg/dL 2.5 - 4 .5 mg/dL [place] Potassium [Moles/Vol] 4.2 mmol/L 3.7 - 5.3 mmol/L [place] Sodium [Moles/Vol] 136 mmol/L 135 - 144 mmol/L [place] Urea nitrogen [Mass/Vol] 13 mg/dL 8 - 23 mg/dL [place] Renal Function Panelon 04-18 (cont.) Normal [facility] Comment on above: Result Comment: Aver age GFR for 60-69 years old: 85 mL/min/1.73sq m Chronic Kidney Disease: <60 mL/min/1.73sq m Kidney failure: <15 mL/min/1.73sq m eGFR calculated using average adult body mass. Additional eGFR calculator available at: http://www.Sporterpilot/BoardBookitcrcl_2011.htm Performed By: #### P T, IOCAL, CBC, IPF, HARVEY, CMPX, MG, TAMIE, TRIG, LIP #### [facility] [address] [place] [address] Sonogram Technician: Bunny Moy MD Albumin [Mass/Vol] 2.8 g/dL Low 3.5-5.2 [facility] Comment on above: Performed By: #### P T, IOCAL, CBC, IPF, HARVEY, CMPX, MG, TAMIE, TRIG, LIP #### [address] [id number] Sonogram Technician: Bunny Moy MD Anion gap [Moles/Vol] 9 mmol/L Normal 9-17 [facility] Comment on above: Performed By: #### P T, IOCAL, CBC, IPF, HARVEY, CMPX, MG, TAMIE, TRIG, LIP #### [address] [address] Sonogram Technician: Bunny Moy MD Calcium [Mass/Vol] 8.1 mg/dL Low 8.6-10.4 [facility] Comment on above: Performed By: #### P T, IOCAL, CBC, IPF, HARVEY, CMPX, MG, TAMIE, TRIG, LIP #### [address] [id number] Sonogram Technician: Bunny Moy MD Chloride [Moles/Vol] 103 mmol/L Normal 98-107 [facility] Comment on above: Performed By: #### P T, IOCAL, CBC, IPF, HARVEY, CMPX, MG, TAMIE, TRIG, LIP #### [address] [address] Sonogram Technician: Bunny Moy MD CO2 [Moles/Vol] 24 mmol/L Normal 20-31 [facility] Comment on above: Performed By: #### P T, IOCAL, CBC, IPF, HARVEY, CMPX, MG, TAMIE, TRIG, LIP #### [address] [address] Sonogram Technician: Bunny Moy MD Creatinine [Mass/Vol] 0.49 mg/dL Low 0.70-1.20 [facility] Comment on above: Performed By: #### P T, IOCAL, CBC, IPF, HARVEY, CMPX, MG, TAMIE, TRIG, LIP #### [address] [id number] Sonogram Technician: Bunny Moy MD GFR, Amer >60 Normal >60 [facility] Comment on above: Performed By: #### P T, IOCAL, CBC, IPF, HARVEY, CMPX, MG, TAMIE, TRIG, LIP #### [place] [address] Sonogram Technician: Bunny Moy MD GFR,non Amer >60 Normal >60 [facility] Comment on above: Performed By: #### P T, IOCAL, CBC, IPF, HARVEY, CMPX, MG, TAMIE, TRIG, LIP #### [place] [address] Sonogram Technician: Bunny Moy MD Glucose [Mass/Vol] 230 mg/dL High 70-99 [facility] Comment on above: Performed By: #### P T, IOCAL, CBC, IPF, HARVEY, CMPX, MG, TAMIE, TRIG, LIP #### [address] [address] Sonogram Technician: Bunny Moy MD Phosphorus, Inorg. 3.1 mg/dL Normal 2.5-4.5 [facility] Comment on above: Performed By: #### P T, IOCAL, CBC, IPF, HARVEY, CMPX, MG, TAMIE, TRIG, LIP #### [place] [address] Sonogram Technician: Bunny Moy MD Potassium [Moles/Vol] 4.2 mmol/L Normal 3.7-5.3 [facility] Comment on above: Performed By: #### P T, IOCAL, CBC, IPF, HARVEY, CMPX, MG, TAMIE, TRIG, LIP #### [address] [address] Sonogram Technician: Bunny Moy MD Sodium [Moles/Vol] 136 mmol/L Normal 135-144 [facility] Comment on above: Performed By: #### P T, IOCAL, CBC, IPF, HARVEY, CMPX, MG, TAMIE, TRIG, LIP #### [address] [address] Sonogram Technician: Bunny Moy MD Urea nitrogen [Mass/Vol] 13 mg/dL Normal 8- [facility] Comment on above: Performed By: #### P T, IOCAL, CBC, IPF, HARVEY, CMPX, MG, TAMIE, TRIG, LIP #### [address] [address] Sonogram Technician: Bunny Moy MD BUN/CRE Ratio NOT REPORTED Normal - [facility] Comment on above: Performed By: #### P T, IOCAL, CBC, IPF, HARVEY, CMPX, MG, TAMIE, TRIG, LIP #### [address] [address] Sonogram Technician: Bunny Moy MD Staging: NOT REPORTED Normal [facility] Comment on above: Performed By: #### P T, IOCAL, CBC, IPF, HARVEY, CMPX, MG, TAMIE, TRIG, LIP #### [address] [address] Sonogram Technician: Bunny Moy MD APTTon 04-17-2019 aPTT Coag (Bld) [Time] 24.1 s Normal 20.5-30.5 [facility] Comment on above: Performed By: #### P T, IOCAL, CBC, IPF, HARVEY, CMPX, MG, TAMIE, TRIG, LIP #### [address] [address] Sonogram Technician: Bunny Moy MD aPTT Coag (Bld) [Time] 24.1 s [facility] [place], [place] Amylaseon 04-17-2019 Amylase [Catalytic activity/Vol] 87 U/L Normal 28-100 [facility] Comment on above: Performed By: #### P T, IOCAL, CBC, IPF, HARVEY, CMPX, MG, TAMIE, TRIG, LIP #### [address] [address] Sonogram Technician: Bunny Moy MD Lipaseon 04-17-2019 Lipase [Catalytic activity/Vol] 140 U/L High 13-60 [facility] Comment on above: Performed By: #### P T, IOCAL, CBC, IPF, HARVEY, CMPX, MG, TAMIE, TRIG, LIP #### [address] [address] Sonogram Technician: Bunny Moy MD Liver Profileon 04-17-2019 Albumin [Mass/Vol] 2.7 g/dL Low 3.5-5.2 [facility] Comment on above: Performed By: #### P T, IOCAL, CBC, IPF, HARVEY, CMPX, MG, TAMIE, TRIG, LIP #### [address] [address] Sonogram Technician: uBnny Moy MD Albumin/Globulin [Mass ratio] 0.8 {ratio} Low 1.0-2.5 [facility] Comment on above: Performed By: #### P T, IOCAL, CBC, IPF, HARVEY, CMPX, MG, TAMIE, TRIG, LIP #### [address] [address] Sonogram Technician: Bunny Moy MD Alkaline Phos 69 U/L Normal 40-129 [facility] Comment on above: Performed By: #### P T, IOCAL, CBC, IPF, HARVEY, CMPX, MG, TAMIE, TRIG, LIP #### [address] [phone] Sonogram Technician: Bunny Moy MD ALT [Catalytic activity/Vol] 44 U/L High 5-41 [facility] Comment on above: Performed By: #### P T, IOCAL, CBC, IPF, HARVEY, CMPX, MG, TAMIE, TRIG, LIP #### [address] [address] Sonogram Technician: Bunny Moy MD AST [Catalytic activity/Vol] 24 U/L Normal <40 [facility] Comment on above: Performed By: #### P T, IOCAL, CBC, IPF, HARVEY, CMPX, MG, TAMIE, TRIG, LIP #### [place] [address] Sonogram Technician: Bunny Moy MD Bilirubin Ql (U) 1.05 mg/dL Normal 0.3-1.2 [facility] Comment on above: Performed By: #### P T, IOCAL, CBC, IPF, HARVEY, CMPX, MG, TAMIE, TRIG, LIP #### [place] [address] Sonogram Technician: Bunny Moy MD Bilirubin, Indirect 0.64 mg/dL Normal 0.00-1.00 [facility] Comment on above: Performed By: #### P T, IOCAL, CBC, IPF, HARVEY, CMPX, MG, TAMIE, TRIG, LIP #### [place] [address] Sonogram Technician: Bunny Moy MD Bilirubin.direct [Mass/Vol] 0.41 mg/dL High <0.31 [facility] Comment on above: Performed By: #### P T, IOCAL, CBC, IPF, HARVEY, CMPX, MG, TAMIE, TRIG, LIP #### [address] [address] Sonogram Technician: Bunny Moy MD Protein [Mass/Vol] 6.2 g/dL Low 6.4-8.3 [facility] Comment on above: Performed By: #### P T, IOCAL, CBC, IPF, HARVEY, CMPX, MG, TAMIE, TRIG, LIP #### [facility] [place], [place] [phone] Sonogram Technician: Bunny Moy MD POC Glucose Fingerstickon Glucose [Mass/Vol] 225 mg/dL High 75 - 110 mg/dL [place], [place] Interpretation and review of laboratory results Abnormal [place] Glucose [Mass/Vol] 227 mg/dL High 75 - 110 mg/dL [place] Interpretation and review of laboratory results Abnormal [place] Glucose [Mass/Vol] 166 mg/dL High 75 - 110 mg/dL [place] Interpretation and review of laboratory results Abnormal [place] Glucose [Mass/Vol] 132 mg/dL High 75 - 110 mg/dL [place] Interpretation and review of laboratory results Abnormal [place] Glucose [Mass/Vol] 123 mg/dL High 75 - 110 mg/dL [place] Interpretation and review of laboratory results Abnormal [place] PROTIME-INRon 04-17-2019 INR Coag (PPP) [Relative time] 1.1 {INR} [place] Comment on above: Therapeutic Range: Moderate Anticoagulant Intensity: INR = 2.0-3.0 High Anticoagulant Intensity: INR = 2.5-3.5 PT Coag (PPP) [Time] 11.7 s [place] PTon 04-17-2019 INR Coag (PPP) [Relative time] 1.1 {INR} Normal [facility] Comment on above: Result Comment: Therapeutic Range: Moderate Anticoagulant Intensity: INR = 2.0-3.0 High Anticoagulant Intensity: INR = 2.5-3.5 Performed By: #### P T, IOCAL, CBC, IPF, HARVEY, CMPX, MG, TAMIE, TRIG, LIP #### [facility] [place], [place] [phone] Sonogram Technician: Bunny Moy MD PT Coag (PPP) [Time] 11.7 s Normal 9.0-12.0 [facility] Comment on above: Performed By: #### P T, IOCAL, CBC, IPF, HARVEY, CMPX, MG, TAMIE, TRIG, LIP #### [facility] [address] [place] [address] [phone] Sonogram Technician: Bunny Moy MD Surgical Pathologyon 019 Surgical Pathology (NOTE) [id number] [facility] CON[facility] PATHOLOGISTS [facility] ANATOMIC PATHOLOGY [address] [place] [phone] SURGICAL PATHOLOGY CONSULTATION Patient Name: PATY CARDONA [facility] Rec: [id number] Path Number: [id number] Collected: 04/17/2019 Received: 04/17/2019 Reported: 04/18/2019 16:10 -- Diagnosis -- GALLBLADDER, CHOLECYSTECTOMY: - ACUTE AND CHRONIC CHOLECYSTITIS. - CHOLELITHIASIS. - BENIGN CYSTIC DUCT LYMPH NODE WITH MILD REACTIVE FEATURES AND FEW LIPOGRANULOMATA. Emil Franz, Electronically Signed Out /04/18/2019 Clinical Information Pre-op Diagnosis: GALLSTONES Operative Findings: GALLBLADDER AND CONTENTS Operation Performed: LAPAROSCOPIC CHOLECYSTECTOMY Source of Specimen 1: GALLBLADDER AND CONTENTS (A) Gross Description PATY CARDONA, GALLBLADDER AND CONTENTS 7.5 x 3.8 x 2.5 cm disrupted gallbladder with no identifiable cystic duct. The serosa is pink-white, and the liver bed is coarse ricci-brown. The wall is 0.1 cm in thickness and, impacted at the fundus, is a 2.8 cm yellow-green calculus. The mucosa is pink-ricci and focally flattened and granular. Mri Tech sections 1cs with margin inked black. tm Microscopic Description Microscopic examination performed. Normal [facility] Comment on above: Performed By: #### P T, IOCAL, CBC, IPF, HARVEY, CMPX, MG, TAMIE, TRIG, LIP #### [facility] [address] [place] [phone] Sonogram Technician: Bunny Moy MD Amylaseon 04-16-2019 Amylase [Catalytic activity/Vol] 87 U/L 28 - 100 U/L [place] CBC Auto Differentialon 04-02 Basophils (Bld) [#/Vol] 0.07 10*3/uL [place] Basophils/100 WBC (Bld) 1 % 0 - 2 % M [place] Differential Type NOT REPORTED [place] Eosinophils (Bld) [#/Vol] 0.24 10*3/uL [place] Eosinophils/100 WBC (Bld) 3 % 1 - 4 % [place] Erythrocyte distribution width (RBC) [Ratio] 12.6 % 11.8 - 14.4 % [place] Hematocrit (Bld) [Volume fraction] 42.9 % 40.7 - 50.3 % [place] Hemoglobin (Bld) [Mass/Vol] 14.1 g/dL 13 - 17 g/dL [place] Immature granulocytes (Bld) [#/Vol] 3 % High 0 [place] Immature granulocytes (Bld) [#/Vol] 0.27 10*3/uL [place] Interpretation and review of laboratory results Abnormal [place] Lymphocytes (Bld) [#/Vol] 0.81 10*3/uL Low [place] Lymphocytes/100 WBC (Bld) 9 % Low 24 - 43 % [place] MCH (RBC) [Entitic mass] 31.3 pg 25.2 - 33.5 pg [place] MCHC (RBC) [Mass/Vol] 32.9 g/dL 28.4 - 34.8 g/dL [place] MCV (RBC) [Entitic vol] 95.3 fL 82.6 - 102.9 fL [place] Monocytes (Bld) [#/Vol] 1.27 10*3/uL High [place], [place] Monocytes/100 WBC (Bld) 13 % High 3 - 12 % M [place] Platelet mean volume (Bld) [Entitic vol] NOT REPORTED 8.1 - 13.5 fL [place] Platelets (Bld) [#/Vol] See Reflexed IPF Result [place] Platelets (Bld) [#/Vol] NOT REPORTED [place] RBC (Bld) [#/Vol] 4.50 10*6/uL 4.21 - 5.77 m/uL [place] RBC morphology finding Nom (Bld) NOT REPORTED [place] Segmented neutrophils/100 WBC (Bld) 72 % High 36 - 65 % [place] Segs Absolute 6.81 [place] WBC (Bld) [#/Vol] 9.5 10*3/uL [place] WBC (Bld) [#/Vol] 0.0 10*3/uL 0.0 per 100 WBC [place] WBC Morphology NOT REPORTED [place] CBC with Diffon 04-16-2019 Abs. Basophil 0.07 k/uL Normal 0.00-0.20 [facility] Comment on above: Performed By: #### P T, IOCAL, CBC, IPF, HARVEY, CMPX, MG, TAMIE, TRIG, LIP #### [facility] [address] [place] [address] [phone] Sonogram Technician: Bunny Moy MD Abs.Imm.Granulocyte 0.27 k/uL Normal 0.00-0.30 [facility] Comment on above: Performed By: #### P T, IOCAL, CBC, IPF, HARVEY, CMPX, MG, TAMIE, TRIG, LIP #### [facility] [address] [place] [phone] Sonogram Technician: Bunny Moy MD Abs.Neutrophil (Seg) 6.81 k/uL Normal 1.50-8.10 [facility] Comment on above: Performed By: #### P T, IOCAL, CBC, IPF, HARVEY, CMPX, MG, TAMIE, TRIG, LIP #### [facility] [address] [place] [address] [phone] Sonogram Technician: Bunny Moy MD Basophils/100 WBC (Bld) 1 % Normal 0-2 M [facility] Comment on above: Performed By: #### P T, IOCAL, CBC, IPF, HARVEY, CMPX, MG, TAMIE, TRIG, LIP #### [address] [address] Sonogram Technician: Bunny Moy MD Eosinophils (Bld) [#/Vol] 0.24 10*3/uL Normal 0.00-0.44 [facility] Comment on above: Performed By: #### P T, IOCAL, CBC, IPF, HARVEY, CMPX, MG, TAMIE, TRIG, LIP #### [place] [address] Sonogram Technician: Bunny Moy MD Eosinophils/100 WBC (Bld) 3 % Normal 1-4 [facility] Comment on above: Performed By: #### P T, IOCAL, CBC, IPF, HARVEY, CMPX, MG, TAMIE, TRIG, LIP #### [place] [address] Sonogram Technician: Bunny Moy MD Erythrocyte distribution width (RBC) [Ratio] 12.6 % Normal 11.8-14.4 [facility] Comment on above: Performed By: #### P T, IOCAL, CBC, IPF, HARVEY, CMPX, MG, TAMIE, TRIG, LIP #### [place] [address] Sonogram Technician: Bunny Moy MD Hematocrit (Bld) [Volume fraction] 42.9 % Normal 40.7-50.3 [facility] Comment on above: Performed By: #### P T, IOCAL, CBC, IPF, HARVEY, CMPX, MG, TAMIE, TRIG, LIP #### [address] [address] Sonogram Technician: Bunny Moy MD Hemoglobin (Bld) [Mass/Vol] 14.1 g/dL Normal 13.0-17.0 [facility] Comment on above: Performed By: #### P T, IOCAL, CBC, IPF, HARVEY, CMPX, MG, TAMIE, TRIG, LIP #### [address] [address] Sonogram Technician: Bunny Moy MD Immature granulocytes (Bld) [#/Vol] 3 % High 0 [facility] Comment on above: Performed By: #### P T, IOCAL, CBC, IPF, HARVEY, CMPX, MG, TAMIE, TRIG, LIP #### [place] [address] Sonogram Technician: Bunny Moy MD Lymphocytes (Bld) [#/Vol] 0.81 10*3/uL Low 1.10-3.70 [facility] Comment on above: Performed By: #### P T, IOCAL, CBC, IPF, HARVEY, CMPX, MG, TAMIE, TRIG, LIP #### [place] [address] Sonogram Technician: Bunny Moy MD Lymphocytes/100 WBC (Bld) 9 % Low 24-43 [facility] Comment on above: Performed By: #### P T, IOCAL, CBC, IPF, HARVEY, CMPX, MG, TAMIE, TRIG, LIP #### [place] [address] Sonogram Technician: Bunny Moy MD MCH (RBC) [Entitic mass] 31.3 pg Normal 25.2-33.5 [facility] Comment on above: Performed By: #### P T, IOCAL, CBC, IPF, HARVEY, CMPX, MG, TAMIE, TRIG, LIP #### [address] [address] Sonogram Technician: Bunny Moy MD MCHC (RBC) [Mass/Vol] 32.9 g/dL Normal 28.4-34.8 [facility] Comment on above: Performed By: #### P T, IOCAL, CBC, IPF, HARVEY, CMPX, MG, TAMIE, TRIG, LIP #### [place] [address] Sonogram Technician: Bunny Moy MD MCV (RBC) [Entitic vol] 95.3 fL Normal 82.6-102.9 M [facility] Comment on above: Performed By: #### P T, IOCAL, CBC, IPF, HARVEY, CMPX, MG, TAMIE, TRIG, LIP #### [place] [address] Sonogram Technician: Bunny Moy MD Monocytes (Bld) [#/Vol] 1.27 10*3/uL High 0.10-1.20 [facility] Comment on above: Performed By: #### P T, IOCAL, CBC, IPF, HARVEY, CMPX, MG, TAMIE, TRIG, LIP #### [place] [address] Sonogram Technician: Bunny Moy MD Monocytes/100 WBC (Bld) 13 % High 3-12 M [facility] Comment on above: Performed By: #### P T, IOCAL, CBC, IPF, HARVEY, CMPX, MG, TAMIE, TRIG, LIP #### [place] [address] Sonogram Technician: Bunny Moy MD Neutrophil (Seg) 72 % High 36-65 [facility] Comment on above: Performed By: #### P T, IOCAL, CBC, IPF, HARVEY, CMPX, MG, TAMIE, TRIG, LIP #### [place] [address] Sonogram Technician: Bunny Moy MD NRBC Automated 0.0 per 100 WBC Normal 0.0 [facility] Comment on above: Performed By: #### P T, IOCAL, CBC, IPF, HARVEY, CMPX, MG, TAMIE, TRIG, LIP #### [address] [address] Sonogram Technician: Bunny Moy MD Platelets (Bld) [#/Vol] See Reflexed IPF Result Normal 138-453 [facility] Comment on above: Performed By: #### P T, IOCAL, CBC, IPF, HARVEY, CMPX, MG, TAMIE, TRIG, LIP #### [address] [address] Sonogram Technician: Bunny Moy MD RBC (Bld) [#/Vol] 4.50 10*6/uL Normal 4.21-5.77 [facility] Comment on above: Performed By: #### P T, IOCAL, CBC, IPF, HARVEY, CMPX, MG, TAMIE, TRIG, LIP #### [address] [address] Sonogram Technician: Bunny Moy MD WBC (Bld) [#/Vol] 9.5 10*3/uL Normal 3.5-11.3 [facility] Comment on above: Performed By: #### P T, IOCAL, CBC, IPF, HARVEY, CMPX, MG, TAMIE, TRIG, LIP #### [address] [address] Sonogram Technician: Bunny Moy MD Auto Diff Performed NOT REPORTED Normal [facility] Comment on above: Performed By: #### P T, IOCAL, CBC, IPF, HARVEY, CMPX, MG, TAMIE, TRIG, LIP #### [address] [address] Sonogram Technician: Bunny Moy MD Platelet mean volume (Bld) [Entitic vol] NOT REPORTED Normal 8.1-13.5 [facility] Comment on above: Performed By: #### P T, IOCAL, CBC, IPF, HARVEY, CMPX, MG, TAMIE, TRIG, LIP #### [address] [phone] Sonogram Technician: Bunny Moy MD Platelets (Bld) [#/Vol] NOT REPORTED Normal [facility] Comment on above: Performed By: #### P T, IOCAL, CBC, IPF, HARVEY, CMPX, MG, TAMIE, TRIG, LIP #### [facility] [address] [place] [address] Sonogram Technician: Bunny Moy MD RBC morphology finding Nom (Bld) NOT REPORTED Normal [facility] Comment on above: Performed By: #### P T, IOCAL, CBC, IPF, HARVEY, CMPX, MG, TAMIE, TRIG, LIP #### [facility] [address] [place] [address] Sonogram Technician: Bunny Moy MD WBC Morphology NOT REPORTED Normal [facility] Comment on above: Performed By: #### P T, IOCAL, CBC, IPF, HARVEY, CMPX, MG, TAMIE, TRIG, LIP #### [facility] [address] [place] [address] Sonogram Technician: Bunny Moy MD Hepatic Function Panelon Albumin [Mass/Vol] 2.7 g/dL Low 3.5 - 5.2 g/dL [place] Albumin/Globulin [Mass ratio] 0.8 {ratio} Low [place] ALP [Catalytic activity/Vol] 69 U/L 40 - 129 U/L [place] ALT [Catalytic activity/Vol] 44 U/L High 5 - 41 U/L [place] AST [Catalytic activity/Vol] 24 U/L <40 [place] Bilirubin Ql (U) 1.05 mg/dL 0.3 - 1.2 mg/dL [place] Bilirubin, Indirect 0.64 mg/dL 0 - 1 mg/dL [place] Bilirubin.direct [Mass/Vol] 0.41 mg/dL High <0.31 [place] Globulin (S) [Mass/Vol] NOT REPORTED 1.5 - 3.8 g/dL [place] Protein [Mass/Vol] 6.2 g/dL Low 6.4 - 8.3 g/dL [place] Immature Platelet Fractionon 04-16-2019 Interpretation and review of laboratory results Abnormal [place] Platelet, Fluorescence [address] [place] Comment on above: ORDERED BY LAB Platelet, Immature Fraction 2.9 % 1.1 - 10.3 % [place] Comment on above: ORDERED BY LAB Lipaseon 04-16-2019 Lipase [Catalytic activity/Vol] 140 U/L High 13 - 60 U/L [place] Liver Profileon 04-16-2019 Globulin (S) [Mass/Vol] NOT REPORTED Normal 1.5-3.8 [facility] Comment on above: Performed By: #### P T, IOCAL, CBC, IPF, HAREVY, CMPX, MG, TAMIE, TRIG, LIP #### [facility] [address] [place] [address] [phone] Sonogram Technician: Bunny Moy MD MAGNESIUMon 04-16-2019 Magnesium [Mass/Vol] 2.2 mg/dL 1.6 - 2 .6 mg/dL [place] Magnesiumon 04-16-2019 Magnesium [Mass/Vol] 2.2 mg/dL Normal 1.6-2.6 [facility] Comment on above: Performed By: #### P T, IOCAL, CBC, IPF, HARVEY, CMPX, MG, TAMIE, TRIG, LIP #### [facility] [address] [place] [address] [phone] Sonogram Technician: Bunny Moy MD Otheron 04-16-2019 Interpretation and review of laboratory results Abnormal [place] PLT, Immature Fract.on 04-16 Platelet, Fluoresc. 125 k/uL Low 138-453 [facility] Comment on above: Result Comment: ORDE RED BY LAB Performed By: #### P T, IOCAL, CBC, IPF, HARVEY, CMPX, MG, TAMIE, TRIG, LIP #### [facility] [address] [place] [phone] Sonogram Technician: Bunny Moy MD PLT, Immature Fract. 2.9 % Normal 1.1-10.3 [facility] Comment on above: Result Comment: ORDE RED BY LAB Performed By: #### P T, IOCAL, CBC, IPF, HARVEY, CMPX, MG, TAMIE, TRIG, LIP #### [facility] [address] [place] [address] Sonogram Technician: Bunny Moy MD POC Glucose Fingerstickon Glucose [Mass/Vol] 138 mg/dL High 75 - 110 mg/dL [place] Interpretation and review of laboratory results Abnormal [place] Glucose [Mass/Vol] 109 mg/dL 75 - 110 mg/dL [place] Glucose [Mass/Vol] 167 mg/dL High 75 - 110 mg/dL [place] Interpretation and review of laboratory results Abnormal [place] Glucose [Mass/Vol] 102 mg/dL 75 - 110 mg/dL [place] RENAL FUNCTION PANELon 04-16 Albumin [Mass/Vol] 2.8 g/dL Low 3.5 - 5.2 g/dL [place] Anion gap [Moles/Vol] 13 mmol/L 9 - 17 mmol/L [place] Bun/Cre Ratio NOT REPORTED [place] Calcium [Mass/Vol] 8.4 mg/dL Low 8.6 - 10. 4 mg/dL [place] Chloride [Moles/Vol] 101 mmol/L 98 - 10 7 mmol/L [place] CO2 [Moles/Vol] 22 mmol/L 20 - 31 mmol/L [place] Creatinine [Mass/Vol] 0.54 mg/dL Low 0.7 - 1.2 mg/dL [place] GFR >60 >60 mL/min [place] GFR Non- >60 >60 mL/min [place] GFR/1.73 sq M predicted among non-blacks MDRD (S/P/Bld) [Vol rate/Area] NOT REPORTED [place] GFR/1.73 sq M predicted among non-blacks MDRD (S/P/Bld) [Vol rate/Area] [place] Comment on above: Average GFR for 60-6 9 years old: 85 mL/min/1.73sq m Chronic Kidney Disease: <60 mL/min/1.73sq m Kidney failure: <15 mL/min/1.73sq m eGFR calculated using average adult body mass. Additional eGFR calculator available at: http://www.Sporterpilot/multiple_crcl_2012.htm Glucose [Mass/Vol] 118 mg/dL High 70 - 99 mg/dL [place] Interpretation and review of laboratory results Abnormal [place] Phosphate [Mass/Vol] 3.0 mg/dL 2.5 - 4 .5 mg/dL [place] Potassium [Moles/Vol] 3.9 mmol/L 3.7 - 5.3 mmol/L [place] Sodium [Moles/Vol] 136 mmol/L 135 - 144 mmol/L [place] Urea nitrogen [Mass/Vol] 10 mg/dL 8 - 23 mg/dL [place] Renal Function Panelon 04-16 (cont.) Normal [facility] Comment on above: Result Comment: Aver age GFR for 60-69 years old: 85 mL/min/1.73sq m Chronic Kidney Disease: <60 mL/min/1.73sq m Kidney failure: <15 mL/min/1.73sq m eGFR calculated using average adult body mass. Additional eGFR calculator available at: http://www.Sporterpilot/multiple_crcl_2011.htm Performed By: #### P T, IOCAL, CBC, IPF, HARVEY, CMPX, MG, TAMIE, TRIG, LIP #### [facility] [address] [place], [place] [phone] Sonogram Technician: Bunny Moy MD Albumin [Mass/Vol] 2.8 g/dL Low 3.5-5.2 [facility] Comment on above: Performed By: #### P T, IOCAL, CBC, IPF, HARVEY, CMPX, MG, TAMIE, TRIG, LIP #### [place] [address] Sonogram Technician: Bunny Moy MD Anion gap [Moles/Vol] 13 mmol/L Normal 9-17 [facility] Comment on above: Performed By: #### P T, IOCAL, CBC, IPF, HARVEY, CMPX, MG, TAMIE, TRIG, LIP #### [place] [address] Sonogram Technician: Bunny Moy MD Calcium [Mass/Vol] 8.4 mg/dL Low 8.6-10.4 [facility] Comment on above: Performed By: #### P T, IOCAL, CBC, IPF, HARVEY, CMPX, MG, TAMIE, TRIG, LIP #### [place] [address] Sonogram Technician: Bunny Moy MD Chloride [Moles/Vol] 101 mmol/L Normal 98-107 [facility] Comment on above: Performed By: #### P T, IOCAL, CBC, IPF, HARVEY, CMPX, MG, TAMIE, TRIG, LIP #### [facility] [address] [place] [address] Sonogram Technician: Bunny Moy MD CO2 [Moles/Vol] 22 mmol/L Normal 20-31 [facility] Comment on above: Performed By: #### P T, IOCAL, CBC, IPF, HARVEY, CMPX, MG, TAMIE, TRIG, LIP #### [place] [address] Sonogram Technician: Bunny Moy MD Creatinine [Mass/Vol] 0.54 mg/dL Low 0.70-1.20 [facility] Comment on above: Performed By: #### P T, IOCAL, CBC, IPF, HARVEY, CMPX, MG, TAMIE, TRIG, LIP #### [address] [address] Sonogram Technician: Bunny Moy MD GFR, Amer >60 Normal >60 [facility] Comment on above: Performed By: #### P T, IOCAL, CBC, IPF, HARVEY, CMPX, MG, TAMIE, TRIG, LIP #### [address] [address] Sonogram Technician: Bunny Moy MD GFR,non Amer >60 Normal >60 [facility] Comment on above: Performed By: #### P T, IOCAL, CBC, IPF, HARVEY, CMPX, MG, TAMIE, TRIG, LIP #### [address] [address] Sonogram Technician: Bunny Moy MD Glucose [Mass/Vol] 118 mg/dL High 70-99 [facility] Comment on above: Performed By: #### P T, IOCAL, CBC, IPF, HARVEY, CMPX, MG, TAMIE, TRIG, LIP #### [address] [address] Sonogram Technician: Bunny Moy MD Phosphorus, Inorg. 3.0 mg/dL Normal 2.5-4.5 [facility] Comment on above: Performed By: #### P T, IOCAL, CBC, IPF, HARVEY, CMPX, MG, TAMIE, TRIG, LIP #### [address] [address] Sonogram Technician: Bunny Moy MD Potassium [Moles/Vol] 3.9 mmol/L Normal 3.7-5.3 [facility] Comment on above: Performed By: #### P T, IOCAL, CBC, IPF, HARVEY, CMPX, MG, TAMIE, TRIG, LIP #### [address] [address] Sonogram Technician: Bunny Moy MD Sodium [Moles/Vol] 136 mmol/L Normal 135-144 [facility] Comment on above: Performed By: #### P T, IOCAL, CBC, IPF, HARVEY, CMPX, MG, TAMIE, TRIG, LIP #### [facility] [place] [address] Sonogram Technician: Bunny Moy MD Urea nitrogen [Mass/Vol] 10 mg/dL Normal 8- [facility] Comment on above: Performed By: #### P T, IOCAL, CBC, IPF, HARVEY, CMPX, MG, TAMIE, TRIG, LIP #### [facility] [address] [place] [address] Sonogram Technician: Bunny Moy MD BUN/CRE Ratio NOT REPORTED Normal 03-22 [facility] Comment on above: Performed By: #### P T, IOCAL, CBC, IPF, HARVEY, CMPX, MG, TAMIE, TRIG, LIP #### [facility] [address] [place] [address] Sonogram Technician: Bunny Moy MD Staging: NOT REPORTED Normal [facility] Comment on above: Performed By: #### P T, IOCAL, CBC, IPF, HARVEY, CMPX, MG, TAMIE, TRIG, LIP #### [facility] [address] [place] [address] Sonogram Technician: Bunny Moy MD Amylaseon 04-15-2019 Amylase [Catalytic activity/Vol] 143 U/L High 28-100 [facility] Comment on above: Performed By: #### C BC, IPF, IOCAL, HARVEY, LIP, TAMIE, CPBILC ####[facility] [id number] [place] [address] Lab Director: Bunny Moy MD Amylase [Catalytic activity/Vol] 143 U/L High 28 - 100 U/L [facility] [place] CBCon 04-15-2019 Erythrocyte distribution width (RBC) [Ratio] 12.4 % Normal 11.8-14.4 [facility] Comment on above: Performed By: #### C BC, IPF, IOCAL, HARVEY, LIP, TAMIE, CPBILC ####[facility] [id number] [place] [address] Lab Director: Bunny Moy MD Hematocrit (Bld) [Volume fraction] 41.9 % Normal 40.7-50.3 [facility] Comment on above: Performed By: #### C BC, IPF, IOCAL, HARVEY, LIP, TAMIE, CPBILC ####[facility] [id number] [place] [address] lab Director: Bunny Moy MD Hemoglobin (Bld) [Mass/Vol] 13.7 g/dL Normal 13.0-17.0 [facility] Comment on above: Performed By: #### C BC, IPF, IOCAL, HARVEY, LIP, TAMIE, CPBILC ####[place] [address] [facility] Director: Bunny Moy MD MCH (RBC) [Entitic mass] 31.2 pg Normal 25.2-33.5 [facility] Comment on above: Performed By: #### C BC, IPF, IOCAL, HARVEY, LIP, TAMIE, CPBILC ####[facility] [address] [place] [id number] Lab Director: Bunny Moy MD MCHC (RBC) [Mass/Vol] 32.7 g/dL Normal 28.4-34.8 [facility] Comment on above: Performed By: #### C BC, IPF, IOCAL, HARVEY, LIP, TAMIE, CPBILC ####[facility] [address] [place] [address] Lab Director: Bunny Moy MD MCV (RBC) [Entitic vol] 95.4 fL Normal 82.6-102.9 [facility] Comment on above: Performed By: #### C BC, IPF, IOCAL, HARVEY, LIP, TAMIE, CPBILC ####[facility] [address] [place], [place] [phone] Director: Bunny Moy MD NRBC Automated 0.0 per 100 WBC Normal 0.0 [facility] Comment on above: Performed By: #### C BC, IPF, IOCAL, HARVEY, LIP, TAMIE, CPBILC ####[facility] [place], [place] [phone] Director: Bunny Moy MD Platelets (Bld) [#/Vol] See Reflexed IPF Result Normal 138-453 [facility] Comment on above: Performed By: #### C BC, IPF, IOCAL, HARVEY, LIP, TAMIE, CPBILC ####[facility] [id number] [place], [place] [phone] Director: Bunny Moy MD RBC (Bld) [#/Vol] 4.39 10*6/uL Normal 4.21-5.77 [facility] Comment on above: Performed By: #### C BC, IPF, IOCAL, HARVEY, LIP, TAMIE, CPBILC ####[address] [phone] Director: Bunny Moy MD WBC (Bld) [#/Vol] 10.0 10*3/uL Normal 3.5-11.3 [facility] Comment on above: Performed By: #### C BC, IPF, IOCAL, HARVEY, LIP, TAMIE, CPBILC ####[facility] [address] [place], [place] [phone] Director: Bunny Moy MD Platelet mean volume (Bld) [Entitic vol] NOT REPORTED Normal 8.1-13.5 [facility] Comment on above: Performed By: #### C BC, IPF, IOCAL, HARVEY, LIP, TAMIE, CPBILC ####[facility] [place], [place] [phone] Director: Bunny Moy MD Erythrocyte distribution width (RBC) [Ratio] 12.4 % 11.8 - 14.4 % [place], [place] Hematocrit (Bld) [Volume fraction] 41.9 % 40.7 - 50.3 % [place] Hemoglobin (Bld) [Mass/Vol] 13.7 g/dL 13 - 17 g/dL [place] MCH (RBC) [Entitic mass] 31.2 pg 25.2 - 33.5 pg [place] MCHC (RBC) [Mass/Vol] 32.7 g/dL 28.4 - 34.8 g/dL [place] MCV (RBC) [Entitic vol] 95.4 fL 82.6 - 102.9 fL [place] Platelet mean volume (Bld) [Entitic vol] NOT REPORTED 8.1 - 13.5 fL [place] Platelets (Bld) [#/Vol] See Reflexed IPF Result [place] RBC (Bld) [#/Vol] 4.39 10*6/uL 4.21 - 5.77 m/uL [place] WBC (Bld) [#/Vol] 10.0 10*3/uL [place] WBC (Bld) [#/Vol] 0.0 10*3/uL 0.0 per 100 WBC [place] Calcium, Ionicon 04-15-2019 Calcium [Mass/Vol] 1.03 mmol/L Low 1.13-1.33 [facility] Comment on above: Performed By: #### C BC, IPF, IOCAL, HARVEY, LIP, TAMIE, CPBILC ####[facility] [address] [place] [address] lab Director: Bunny Moy MD Calcium, Ionizedon 9 Calcium [Mass/Vol] 1.03 mmol/L Low 1.13 - 1.33 mmol/L [place] Interpretation and review of laboratory results Abnormal [place], [place] Comp Metab w/Bili Pron 04-15 (cont.) Normal [facility] Comment on above: Result Comment: Aver age GFR for 60-69 years old: 85 mL/min/1.73sq m Chronic Kidney Disease: <60 mL/min/1.73sq m Kidney failure: <15 mL/min/1.73sq m eGFR calculated using average adult body mass. Additional eGFR calculator available at: http://www.Sporterpilot/multiple_crcl_2012.htm Performed By: #### P T, IOCAL, CBC, IPF, HARVEY, CMPX, MG, TAMIE, TRIG, LIP #### [facility] [address] [place] [address] Sonogram Technician: Bunny Moy MD Albumin [Mass/Vol] 2.7 g/dL Low 3.5-5.2 [facility] Comment on above: Performed By: #### P T, IOCAL, CBC, IPF, HARVEY, CMPX, MG, TAMIE, TRIG, LIP #### [facility] [address] [place] [address] Sonogram Technician: Bunny Moy MD Albumin/Globulin [Mass ratio] 0.9 {ratio} Low 1.0-2.5 [facility] Comment on above: Performed By: #### P T, IOCAL, CBC, IPF, HARVEY, CMPX, MG, TAMIE, TRIG, LIP #### [facility] [address] [place] [address] Sonogram Technician: Bunny Moy MD Alkaline Phos 52 U/L Normal 40-129 [facility] Comment on above: Performed By: #### P T, IOCAL, CBC, IPF, HARVEY, CMPX, MG, TAMIE, TRIG, LIP #### [facility] [place] [address] Sonogram Technician: Bunny Moy MD ALT [Catalytic activity/Vol] 54 U/L High 5-41 [facility] Comment on above: Performed By: #### P T, IOCAL, CBC, IPF, HARVEY, CMPX, MG, TAMIE, TRIG, LIP #### [address] [address] Sonogram Technician: Bunny Moy MD Anion gap [Moles/Vol] 10 mmol/L Normal 9-17 [facility] Comment on above: Performed By: #### P T, IOCAL, CBC, IPF, HARVEY, CMPX, MG, TAMIE, TRIG, LIP #### [address] [address] Sonogram Technician: Bunny Moy MD AST [Catalytic activity/Vol] 23 U/L Normal <40 [facility] Comment on above: Performed By: #### P T, IOCAL, CBC, IPF, HARVEY, CMPX, MG, TAMIE, TRIG, LIP #### [address] [address] Sonogram Technician: Bunny Moy MD Bilirubin Ql (U) 1.17 mg/dL Normal 0.3-1.2 [facility] Comment on above: Performed By: #### P T, IOCAL, CBC, IPF, HARVEY, CMPX, MG, TAMIE, TRIG, LIP #### [place] [address] Sonogram Technician: Bunny Moy MD Bilirubin, Indirect 0.77 mg/dL Normal 0.00-1.00 [facility] Comment on above: Performed By: #### P T, IOCAL, CBC, IPF, HARVEY, CMPX, MG, TAMIE, TRIG, LIP #### [address] [address] Sonogram Technician: Bunny Moy MD Bilirubin.direct [Mass/Vol] 0.40 mg/dL High <0.31 [facility] Comment on above: Performed By: #### P T, IOCAL, CBC, IPF, HARVEY, CMPX, MG, TAMIE, TRIG, LIP #### [address] [address] Sonogram Technician: Bunny Moy MD Calcium [Mass/Vol] 8.0 mg/dL Low 8.6-10.4 [facility] Comment on above: Performed By: #### P T, IOCAL, CBC, IPF, HARVEY, CMPX, MG, TAMIE, TRIG, LIP #### [address] [address] Sonogram Technician: Bunny Moy MD Chloride [Moles/Vol] 99 mmol/L Normal 98-107 [facility] Comment on above: Performed By: #### P T, IOCAL, CBC, IPF, HARVEY, CMPX, MG, TAMIE, TRIG, LIP #### [place] [address] Sonogram Technician: Bunny Moy MD CO2 [Moles/Vol] 22 mmol/L Normal 20-31 [facility] Comment on above: Performed By: #### P T, IOCAL, CBC, IPF, HARVEY, CMPX, MG, TAMIE, TRIG, LIP #### [place] [address] Sonogram Technician: Bunny Moy MD Creatinine [Mass/Vol] 0.48 mg/dL Low 0.70-1.20 [facility] Comment on above: Performed By: #### P T, IOCAL, CBC, IPF, HARVEY, CMPX, MG, TAMIE, TRIG, LIP #### [place] [address] Sonogram Technician: Bunny Moy MD GFR, Amer >60 Normal >60 [facility] Comment on above: Performed By: #### P T, IOCAL, CBC, IPF, HARVEY, CMPX, MG, TAMIE, TRIG, LIP #### [address] [address] Sonogram Technician: Bunny Moy MD GFR,non Amer >60 Normal >60 [facility] Comment on above: Performed By: #### P T, IOCAL, CBC, IPF, HARVEY, CMPX, MG, TAMIE, TRIG, LIP #### [address] [address] Sonogram Technician: Bunny Moy MD Glucose [Mass/Vol] 128 mg/dL High 70-99 [facility] Comment on above: Performed By: #### P T, IOCAL, CBC, IPF, HARVEY, CMPX, MG, TAMIE, TRIG, LIP #### [address] [address] Sonogram Technician: Bunny Moy MD Potassium [Moles/Vol] 3.9 mmol/L Normal 3.7-5.3 [facility] Comment on above: Performed By: #### P T, IOCAL, CBC, IPF, HARVEY, CMPX, MG, TAMIE, TRIG, LIP #### [place] [address] Sonogram Technician: Bunny Moy MD Protein [Mass/Vol] 5.7 g/dL Low 6.4-8.3 [facility] Comment on above: Performed By: #### P T, IOCAL, CBC, IPF, HARVEY, CMPX, MG, TAMIE, TRIG, LIP #### [address] [address] Sonogram Technician: Bunny Moy MD Sodium [Moles/Vol] 131 mmol/L Low 135-144 [facility] Comment on above: Performed By: #### P T, IOCAL, CBC, IPF, HARVEY, CMPX, MG, TAMIE, TRIG, LIP #### [address] [address] Sonogram Technician: Bunny Moy MD Urea nitrogen [Mass/Vol] 9 mg/dL Normal 8-23 [facility] Comment on above: Performed By: #### P T, IOCAL, CBC, IPF, HARVEY, CMPX, MG, TAMIE, TRIG, LIP #### [address] [place] [phone] Sonogram Technician: Bunny Moy MD Staging: NOT REPORTED Normal [facility] Comment on above: Performed By: #### P T, IOCAL, CBC, IPF, HARVEY, CMPX, MG, TAMIE, TRIG, LIP #### [facility] [address] [place], [place] [phone] Sonogram Technician: Bunny Moy MD Comp Metabolic w Bili Profil anthony 04-15-2019 Albumin [Mass/Vol] 2.7 g/dL Low 3.5 - 5.2 g/dL [place] Albumin/Globulin [Mass ratio] 0.9 {ratio} Low [place] ALP [Catalytic activity/Vol] 52 U/L 40 - 129 U/L [place] ALT [Catalytic activity/Vol] 54 U/L High 5 - 41 U/L [place] Anion gap [Moles/Vol] 10 mmol/L 9 - 17 mmol/L [place] AST [Catalytic activity/Vol] 23 U/L <40 [place] Bilirubin Ql (U) 1.17 mg/dL 0.3 - 1.2 mg/dL [place] Bilirubin, Indirect 0.77 mg/dL 0 - 1 mg/dL [place] Bilirubin.direct [Mass/Vol] 0.40 mg/dL High <0.31 [place] Calcium [Mass/Vol] 8.0 mg/dL Low 8.6 - 10. 4 mg/dL [place] Chloride [Moles/Vol] 99 mmol/L 98 - 10 7 mmol/L [place] CO2 [Moles/Vol] 22 mmol/L 20 - 31 mmol/L [place] Creatinine [Mass/Vol] 0.48 mg/dL Low 0.7 - 1.2 mg/dL [place] GFR >60 >60 mL/min [place] GFR Non- >60 >60 mL/min [place] GFR/1.73 sq M predicted among non-blacks MDRD (S/P/Bld) [Vol rate/Area] NOT REPORTED [place] GFR/1.73 sq M predicted among non-blacks MDRD (S/P/Bld) [Vol rate/Area] [place] Comment on above: Average GFR for 60-6 9 years old: 85 mL/min/1.73sq m Chronic Kidney Disease: <60 mL/min/1.73sq m Kidney failure: <15 mL/min/1.73sq m eGFR calculated using average adult body mass. Additional eGFR calculator available at: http://www.Sporterpilot/multiple_crcl_2012.htm Glucose [Mass/Vol] 128 mg/dL High 70 - 99 mg/dL [place] Interpretation and review of laboratory results Abnormal [place] Potassium [Moles/Vol] 3.9 mmol/L 3.7 - 5.3 mmol/L [place] Protein [Mass/Vol] 5.7 g/dL Low 6.4 - 8.3 g/dL [place] Sodium [Moles/Vol] 131 mmol/L Low 135 - 144 mmol/L [place] Urea nitrogen [Mass/Vol] 9 mg/dL 8 - 23 mg/dL [place] Immature Platelet Fractionon 04-15-2019 Interpretation and review of laboratory results Abnormal [place] Platelet, Fluorescence [address] [place] Comment on above: ORDERED BY LAB Platelet, Immature Fraction 3.1 % 1.1 - 10.3 % [place] Comment on above: ORDERED BY LAB Lipaseon 04-15-2019 Lipase [Catalytic activity/Vol] 256 U/L High 13-60 [facility] Comment on above: Performed By: #### C BC, IPF, IOCAL, HARVEY, LIP, TAMIE, CPBILC ####[facility] [address] [place] [address] lab Director: Bunny Moy MD Lipase [Catalytic activity/Vol] 256 U/L High 13 - 60 U/L [place] MRI ABDOMEN W WO CONTRAST MR CPon 04-15-2019 MRI ABDOMEN W WO CONTRAST MRCP ADDENDUM: Outside CT imaging from 04/11/2019 is made available for comparison. Aforementioned findings of pancreatitis, cholelithiasis and hepatic fatty infiltration appears similar to prior CT examination. Electronically Signed by: YUVAL TATE on MonApr 15, 2019 9:28:42 AM EDT EXAMINATION: MRI OF THE ABDOMEN WITH AND WITHOUT CONTRAST AND MRCP 04/11/2019 7:08 pm TECHNIQUE: Multiplanar multisequence MRI of the abdomen was performed with and without the administration of intravenous contrast. After initial T2 axial and coronal images, thick slab, thin slab and 3D coronal MRCP sequences were obtained without the administration of intravenous contrast. MIP images are provided for review. COMPARISON: None HISTORY: ORDERING SYSTEM PROVIDED HISTORY: gallstone pancreatitis with elevated bili-pt may need ERCP in am FINDINGS: Pancreas demonstrates homogeneous enhancement. Extensive peripancreatic inflammation with diffuse edema/fluid along the entire course of the pancreas extending to the left pericolic gutter, pancreaticoduodenal groove and right perinephric space. Findings consistent with acute interstitial edematous pancreatitis. Liver demonstrates heterogeneous fatty infiltration. Spleen, adrenal glands and kidneys appear unremarkable. Gallbladder: Multiple filling defects largest measuring approximately 2.4 cm and consistent with gallstones. No significant wall thickening or pericholecystic edema Bile Ducts: Normal caliber. 2 adjacent filling defects in the distal/terminal common bile duct measuring approximately 5-6 mm. Pancreatic Duct: Normal caliber Other: Normal caliber abdominal aorta. Major veins are patent. No significant adenopathy. Bowel loops of normal caliber. Bibasilar atelectasis with small effusions. Normal heart size. Osseous structures grossly unremarkable. Bladder appears unremarkable. Mild amount of reactive free fluid in the the pelvis. IMPRESSION: 1. Acute interstitial edematous pancreatitis as described. 2. Cholelithiasis as described. 3. Normal caliber bile ducts however 2 adjacent filling defects as measured above visualized in the distal/terminal common bile duct suggesting choledocholithiasis. 4. Heterogeneous hepatic fatty infiltration. The findings were sent to the Radiology Results Communication Center at 9:02 pm on 04/11/2019to be communicated to a licensed caregiver. Interpreted by: Yuval Tate MD Signed by: Yuval Tate MD 04/15/19 Edited Result - FINAL Normal [facility] Otheron 04-15-2019 Interpretation and review of laboratory results Abnormal [place] PLT, Immature Fract.on 04-15 Platelet, Fluoresc. 103 k/uL Low 138-453 [facility] Comment on above: Result Comment: ORDE RED BY LAB Performed By: #### C BC, IPF, IOCAL, HARVEY, LIP, TAMIE, CPBILC ####[facility] [address] [place], [place] [id number] lab Director: Bunny Moy MD PLT, Immature Fract. 3.1 % Normal 1.1-10.3 [facility] Comment on above: Result Comment: ORDE RED BY LAB Performed By: #### C BC, IPF, IOCAL, HARVEY, LIP, TAMIE, CPBILC ####[facility] [address] [place] [address] lab Director: Bunny Moy MD POC Glucose Fingerstickon Glucose [Mass/Vol] 123 mg/dL High 75 - 110 mg/dL [place] Interpretation and review of laboratory results Abnormal [place] Glucose [Mass/Vol] 110 mg/dL 75 - 110 mg/dL [place] Glucose [Mass/Vol] 112 mg/dL High 75 - 110 mg/dL [place] Interpretation and review of laboratory results Abnormal [place] Glucose [Mass/Vol] 139 mg/dL High 75 - 110 mg/dL [place] Interpretation and review of laboratory results Abnormal [place] Phosphoruson 04-15-2019 Phosphate [Mass/Vol] 3.0 mg/dL 2.5 - 4 .5 mg/dL [place] Phosphorus, Inorg.on 019 Phosphorus, Inorg. 3.0 mg/dL Normal 2.5-4.5 [facility] Comment on above: Performed By: #### C BC, IPF, IOCAL, HARVEY, LIP, TAMIE, CPBILC ####[facility] [address] [place] [address] lab Director: Bunny Moy MD Amylaseon 04-14-2019 Amylase [Catalytic activity/Vol] 149 U/L High 28-100 [facility] Comment on above: Performed By: #### C MPX, LIP #### [facility] [address] [place] [address] Sonogram Technician: Bunny Moy MD Amylase [Catalytic activity/Vol] 149 U/L High 28 - 100 U/L [place] CBCon 04-14-2019 Erythrocyte distribution width (RBC) [Ratio] 12.7 % Normal 11.8-14.4 [facility] Comment on above: Performed By: #### I OCAL, HARVEY, LIP, CBC, IPF ####[facility] [address] [place] [address] Lab Director: Bunny Moy MD Hematocrit (Bld) [Volume fraction] 41.0 % Normal 40.7-50.3 [facility] Comment on above: Performed By: #### I OCAL, HARVEY, LIP, CBC, IPF ####[facility] [address] [place] [address] Lab Director: Bunny Moy MD Hemoglobin (Bld) [Mass/Vol] 13.1 g/dL Normal 13.0-17.0 [facility] Comment on above: Performed By: #### I OCAL, HARVEY, LIP, CBC, IPF ####[facility] [address] [place] [address] Lab Director: Bunny Moy MD MCH (RBC) [Entitic mass] 31.2 pg Normal 25.2-33.5 [facility] Comment on above: Performed By: #### I OCAL, HARVEY, LIP, CBC, IPF ####[facility] [address] [place] [address] Lab Director: Bunny Moy MD MCHC (RBC) [Mass/Vol] 32.0 g/dL Normal 28.4-34.8 [facility] Comment on above: Performed By: #### I OCAL, HARVEY, LIP, CBC, IPF ####[address] [address] Lab Director: Bunny Moy MD MCV (RBC) [Entitic vol] 97.6 fL Normal 82.6-102.9 [facility] Comment on above: Performed By: #### I OCAL, HARVEY, LIP, CBC, IPF ####[address] [phone] Director: Bunny Moy MD NRBC Automated 0.0 per 100 WBC Normal 0.0 [facility] Comment on above: Performed By: #### I OCAL, HARVEY, LIP, CBC, IPF ####[address] [phone] Director: Bunny Moy MD Platelets (Bld) [#/Vol] See Reflexed IPF Result Normal 138-453 [facility] Comment on above: Performed By: #### I OCAL, HARVEY, LIP, CBC, IPF ####[address] [address] Lab Director: Bunny Moy MD RBC (Bld) [#/Vol] 4.20 10*6/uL Low 4.21-5.77 [facility] Comment on above: Performed By: #### I OCAL, HARVEY, LIP, CBC, IPF ####[address] [address] Lab Director: Bunny Moy MD WBC (Bld) [#/Vol] 8.1 10*3/uL Normal 3.5-11.3 [facility] Comment on above: Performed By: #### I OCAL, HARVEY, LIP, CBC, IPF ####[address] [address] Lab Director: Bunny Moy MD Platelet mean volume (Bld) [Entitic vol] NOT REPORTED Normal 8.1-13.5 [facility] Comment on above: Performed By: #### I HARVEY HOBBS, LIP, CBC, IPF ####[facility] [address] [place] [address] lab Director: Bunny Moy MD Erythrocyte distribution width (RBC) [Ratio] 12.7 % 11.8 - 14.4 % [place] Hematocrit (Bld) [Volume fraction] 41.0 % 40.7 - 50.3 % [place] Hemoglobin (Bld) [Mass/Vol] 13.1 g/dL 13 - 17 g/dL [place] Interpretation and review of laboratory results Abnormal [place] MCH (RBC) [Entitic mass] 31.2 pg 25.2 - 33.5 pg [place] MCHC (RBC) [Mass/Vol] 32.0 g/dL 28.4 - 34.8 g/dL [place] MCV (RBC) [Entitic vol] 97.6 fL 82.6 - 102.9 fL [place] Platelet mean volume (Bld) [Entitic vol] NOT REPORTED 8.1 - 13.5 fL [place] Platelets (Bld) [#/Vol] See Reflexed IPF Result [place] RBC (Bld) [#/Vol] 4.20 10*6/uL Low 4.21 - 5.77 m/uL [place] WBC (Bld) [#/Vol] 8.1 10*3/uL [place] WBC (Bld) [#/Vol] 0.0 10*3/uL 0.0 per 100 WBC [place] CT ABDOMEN PELVIS W IV CONTR [place] 04-14-2019 CT ABDOMEN PELVIS W IV CONTRAST EXAMINATION: CT OF THE ABDOMEN AND PELVIS WITH CONTRAST 04/14/2019 9:24 am TECHNIQUE: CT of the abdomen and pelvis was performed with the administration of intravenous contrast. Multiplanar reformatted images are provided for review. Dose modulation, iterative reconstruction, and/or weight based adjustment of the mA/kV was utilized to reduce the radiation dose to as low as reasonably achievable. COMPARISON: None HISTORY: ORDERING SYSTEM PROVIDED HISTORY: increased abd pain TECHNOLOGIST PROVIDED HISTORY: Reason for Exam: abd pain Acuity: Unknown Type of Exam: Unknown FINDINGS: Lower Chest: Small bilateral effusions with associated basilar airspace disease likely atelectasis. Organs: Fatty liver. Pneumobilia. Patient has recent ERCP with sphincterotomy. Peripancreatic inflammatory changes similar to before accounting for differences between MRI and CT. No adrenal lesion. The kidneys are unremarkable. GI/Bowel: No dilated bowel. Contrast throughout the GI tract. Air-filled appendix. Stool throughout the colon. Pelvis: Prostate and seminal vesicles are normal. Bladder wall thickening likely due to underdistention. Peritoneum/Retroperitoneum: Free abdominopelvic fluid. No evidence of pseudoaneurysm or venous thrombosis. Normal caliber aorta. Bones/Soft Tissues: No acute osseous abnormality. IMPRESSION: Acute interstitial edematous pancreatitis without evidence of complication. Interval ERCP with expected pneumobilia. Fatty liver. Interpreted by: Carlton Garcia MD Signed by: Carlton Garcia MD 04/14/19 Final result Normal [facility] CT ABDOMEN PELVIS W IV CONTR AST Additional Contrast? Oralon 04-14-2019 Zev, pn Incoming R adiant Results From [facility] - 04/14/2019 8:11 PM EDT EXAMINATION: CT OF THE ABDOMEN AND PELVIS WITH CONTRAST 04/14/2019 9:24 am TECHNIQUE: CT of the abdomen and pelvis was performed with the administration of intravenous contrast. Multiplanar reformatted images are provided for review. Dose modulation, iterative reconstruction, and/or weight based adjustment of the mA/kV was utilized to reduce the radiation dose to as low as reasonably achievable. COMPARISON: None HISTORY: ORDERING SYSTEM PROVIDED HISTORY: increased abd pain TECHNOLOGIST PROVIDED HISTORY: Reason for Exam: abd pain Acuity: Unknown Type of Exam: Unknown FINDINGS: Lower Chest: Small bilateral effusions with associated basilar airspace disease likely atelectasis. Organs: Fatty liver. Pneumobilia. Patient has recent ERCP with sphincterotomy. Peripancreatic inflammatory changes similar to before accounting for differences between MRI and CT. No adrenal lesion. The kidneys are unremarkable. GI/Bowel: No dilated bowel. Contrast throughout the GI tract. Air-filled appendix. Stool throughout the colon. Pelvis: Prostate and seminal vesicles are normal. Bladder wall thickening likely due to underdistention. Peritoneum/Retroperitoneum: Free abdominopelvic fluid. No evidence of pseudoaneurysm or venous thrombosis. Normal caliber aorta. Bones/Soft Tissues: No acute osseous abnormality. IMPRESSION: Acute interstitial edematous pancreatitis without evidence of complication. Interval ERCP with expected pneumobilia. Fatty liver. [place] Acute interstitial edematous pancreatitis without evidence of complication. Interval ERCP with expected pneumobilia. Fatty liver. [place] EXAMINATION: CT OF T HE ABDOMEN AND PELVIS WITH CONTRAST 04/14/2019 9:24 am TECHNIQUE: CT of the abdomen and pelvis was performed with the administration of intravenous contrast. Multiplanar reformatted images are provided for review. Dose modulation, iterative reconstruction, and/or weight based adjustment of the mA/kV was utilized to reduce the radiation dose to as low as reasonably achievable. COMPARISON: None HISTORY: ORDERING SYSTEM PROVIDED HISTORY: increased abd pain TECHNOLOGIST PROVIDED HISTORY: Reason for Exam: abd pain Acuity: Unknown Type of Exam: Unknown FINDINGS: Lower Chest: Small bilateral effusions with associated basilar airspace disease likely atelectasis. Organs: Fatty liver. Pneumobilia. Patient has recent ERCP with sphincterotomy. Peripancreatic inflammatory changes similar to before accounting for differences between MRI and CT. No adrenal lesion. The kidneys are unremarkable. GI/Bowel: No dilated bowel. Contrast throughout the GI tract. Air-filled appendix. Stool throughout the colon. Pelvis: Prostate and seminal vesicles are normal. Bladder wall thickening likely due to underdistention. Peritoneum/Retroperitoneum: Free abdominopelvic fluid. No evidence of pseudoaneurysm or venous thrombosis. Normal caliber aorta. Bones/Soft Tissues: No acute osseous abnormality. [place] Calcium, Ionicon 04-14-2019 Calcium [Mass/Vol] 1.02 mmol/L Low 1.13-1.33 [facility] Comment on above: Performed By: #### C MPX, LIP #### [facility] [place] [address] Sonogram Technician: Bunny Moy MD Calcium, Ionizedon 9 Calcium [Mass/Vol] 1.02 mmol/L Low 1.13 - 1.33 mmol/L [place] Interpretation and review of laboratory results Abnormal [place] HEMOGLOBIN A1Con 04-14-2019 Glucose [Mass/Vol] 143 mg/dL [place] Comment on above: The ADA and AACC rec ommend providing the estimated average glucose result to permit better patient understanding of their HBA1c result. HbA1c (Bld) [Mass fraction] 6.6 % High 4 - 6 % [place] Interpretation and review of laboratory results Abnormal [place] Hemoglobin A1Con 04-14-2019 HbA1c (Bld) [Mass fraction] 143 mg/dL Normal [facility] Comment on above: Result Comment: The ADA and AACC recommend providing the estimated average glucose result to permit better patient understanding of their HBA1c result. Performed By: #### G LYHGB ####[facility] [address] [place] [address] Lab Director: Bunny Moy MD HbA1c (Bld) [Mass fraction] 6.6 % High 4.0-6.0 [facility] Comment on above: Performed By: #### G LYHGB ####[facility] [address] [place] [address] Lab Director: Bunny Moy MD Immature Platelet Fractionon 04-14-2019 Interpretation and review of laboratory results Abnormal [place] Platelet, Fluorescence [address] [place] Comment on above: ORDERED BY LAB Platelet, Immature Fraction 4.7 % 1.1 - 10.3 % [place] Comment on above: ORDERED BY LAB Lipaseon 04-14-2019 Lipase [Catalytic activity/Vol] 251 U/L High 13-60 [facility] Comment on above: Performed By: #### C MPX, LIP #### [facility] [address] [place] [address] Sonogram Technician: Bunny Moy MD Lipase [Catalytic activity/Vol] 251 U/L High 13 - 60 U/L [place] Otheron 04-14-2019 Interpretation and review of laboratory results Abnormal [place] PLT, Immature Fract.on 04-14 Platelet, Fluoresc. 106 k/uL Low 138-453 [facility] [facility] Comment on above: Result Comment: ORDE RED BY LAB Performed By: #### I OCAL, HARVEY, LIP, CBC, IPF ####[facility] [id number] [place] [address] Lab Director: Bunny Moy MD PLT, Immature Fract. 4.7 % Normal 1.1-10.3 [facility] Comment on above: Result Comment: ORDE RED BY LAB Performed By: #### I OCAL, HARVEY, LIP, CBC, IPF ####[facility] [id number] [place] [address] Lab Director: Bunny Moy MD POC Glucose Fingerstickon Glucose [Mass/Vol] 126 mg/dL High 75 - 110 mg/dL [place], [place] Interpretation and review of laboratory results Abnormal [place] Glucose [Mass/Vol] 108 mg/dL 75 - 110 mg/dL [place] Glucose [Mass/Vol] 122 mg/dL High 75 - 110 mg/dL [place] Interpretation and review of laboratory results Abnormal [place] Calcium, Ionicon 04-13-2019 Calcium [Mass/Vol] 1.00 mmol/L Low 1.13-1.33 [facility] Comment on above: Performed By: #### C MPX, LIP #### [facility] [address] [place] [address] Sonogram Technician: Bunny Moy MD Calcium, Ionizedon 9 Calcium [Mass/Vol] 1 mmol/L Low 1.13 - 1.33 mmol/L [place] Interpretation and review of laboratory results Abnormal [place] Hepatic Function Panelon Albumin [Mass/Vol] 2.9 g/dL Low 3.5 - 5.2 g/dL [place] Albumin/Globulin [Mass ratio] 1.0 {ratio} [place] ALP [Catalytic activity/Vol] 41 U/L 40 - 129 U/L [place] ALT [Catalytic activity/Vol] 103 U/L High 5 - 41 U/L [place] AST [Catalytic activity/Vol] 36 U/L <40 [place] Bilirubin Ql (U) 0.87 mg/dL 0.3 - 1.2 mg/dL [place] Bilirubin, Indirect 0.54 mg/dL 0 - 1 mg/dL [place] Bilirubin.direct [Mass/Vol] 0.33 mg/dL High <0.31 [place] Globulin (S) [Mass/Vol] NOT REPORTED 1.5 - 3.8 g/dL [place] Interpretation and review of laboratory results Abnormal [place] Protein [Mass/Vol] 5.7 g/dL Low 6.4 - 8.3 g/dL [place] Lipaseon 04-13-2019 Lipase [Catalytic activity/Vol] 288 U/L High 13-60 [facility] Comment on above: Performed By: #### C MPX, LIP #### [facility] [address] [place] [address] Sonogram Technician: Bunny Moy MD Interpretation and review of laboratory results Abnormal [place] Lipase [Catalytic activity/Vol] 288 U/L High 13 - 60 U/L [place] Liver Profileon 04-13-2019 Albumin [Mass/Vol] 2.9 g/dL Low 3.5-5.2 [facility] Comment on above: Performed By: #### C MPX, LIP #### [facility] [place], [place] [phone] Sonogram Technician: Bunny Moy MD Albumin/Globulin [Mass ratio] 1.0 {ratio} Normal 1.0-2.5 [facility] Comment on above: Performed By: #### C MPX, LIP #### [facility] [place], [place] [phone] Sonogram Technician: Bunny Moy MD Alkaline Phos 41 U/L Normal 40-129 [facility] Comment on above: Performed By: #### C MPX, LIP #### [address] [address] Sonogram Technician: Bunny Moy MD ALT [Catalytic activity/Vol] 103 U/L High 5-41 [facility] Comment on above: Performed By: #### C MPX, LIP #### [facility] [address] [place] [address] Sonogram Technician: Bunny Moy MD AST [Catalytic activity/Vol] 36 U/L Normal <40 [facility] Comment on above: Performed By: #### C MPX, LIP #### [address] [address] Sonogram Technician: Bunny Moy MD Bilirubin Ql (U) 0.87 mg/dL Normal 0.3-1.2 [facility] Comment on above: Performed By: #### C MPX, LIP #### [address] [address] Sonogram Technician: Bunny Moy MD Bilirubin, Indirect 0.54 mg/dL Normal 0.00-1.00 [facility] Comment on above: Performed By: #### C MPX, LIP #### [address] [address] Sonogram Technician: Bunny Moy MD Bilirubin.direct [Mass/Vol] 0.33 mg/dL High <0.31 [facility] Comment on above: Performed By: #### C MPX, LIP #### [facility] [address] [place] [address] Sonogram Technician: Bunny Moy MD Protein [Mass/Vol] 5.7 g/dL Low 6.4-8.3 [facility] Comment on above: Performed By: #### C MPX, LIP #### [facility] [place], [place] [phone] Sonogram Technician: Bunny Moy MD Globulin (S) [Mass/Vol] NOT REPORTED Normal 1.5-3.8 [facility] Comment on above: Performed By: #### C MPX, LIP #### [facility] [place], [place] [phone] Sonogram Technician: Bunny Moy MD POC Glucose Fingerstickon Glucose [Mass/Vol] 154 mg/dL High 75 - 110 mg/dL [place] Interpretation and review of laboratory results Abnormal [place] Glucose [Mass/Vol] 132 mg/dL High 75 - 110 mg/dL [place] Interpretation and review of laboratory results Abnormal [place] Glucose [Mass/Vol] 174 mg/dL High 75 - 110 mg/dL [place] Interpretation and review of laboratory results Abnormal [place] Glucose [Mass/Vol] 148 mg/dL High 75 - 110 mg/dL [place] Interpretation and review of laboratory results Abnormal [place] AMYLASEon 04-12-2019 Amylase [Catalytic activity/Vol] 436 U/L High 28 - 100 U/L [place] Interpretation and review of laboratory results Abnormal [place] Amylaseon 04-12-2019 Amylase [Catalytic activity/Vol] 436 U/L High 28-100 [facility] Comment on above: Performed By: #### P T, IOCAL, CBC, IPF, HARVEY, CMPX, MG, TAMIE, TRIG, LIP #### [facility] [place], [place] [phone] Sonogram Technician: Bunny Moy MD CBCon 04-12-2019 Erythrocyte distribution width (RBC) [Ratio] 12.4 % Normal 11.8-14.4 [facility] Comment on above: Performed By: #### P T, IOCAL, CBC, IPF, HARVEY, CMPX, MG, TAMIE, TRIG, LIP #### [place] [address] Sonogram Technician: Bunny Moy MD Hematocrit (Bld) [Volume fraction] 48.2 % Normal 40.7-50.3 [facility] Comment on above: Performed By: #### P T, IOCAL, CBC, IPF, HARVEY, CMPX, MG, TAMIE, TRIG, LIP #### [place] [address] Sonogram Technician: Bunny Moy MD Hemoglobin (Bld) [Mass/Vol] 16.1 g/dL Normal 13.0-17.0 [facility] Comment on above: Performed By: #### P T, IOCAL, CBC, IPF, HARVEY, CMPX, MG, TAMIE, TRIG, LIP #### [place] [address] Sonogram Technician: Bunny Moy MD MCH (RBC) [Entitic mass] 31.6 pg Normal 25.2-33.5 [facility] Comment on above: Performed By: #### P T, IOCAL, CBC, IPF, HARVEY, CMPX, MG, TAMIE, TRIG, LIP #### [place] [address] Sonogram Technician: Bunny Moy MD MCHC (RBC) [Mass/Vol] 33.4 g/dL Normal 28.4-34.8 [facility] Comment on above: Performed By: #### P T, IOCAL, CBC, IPF, HARVEY, CMPX, MG, TAMIE, TRIG, LIP #### [place] [address] Sonogram Technician: Bunny Moy MD MCV (RBC) [Entitic vol] 94.5 fL Normal 82.6-102.9 [facility] Comment on above: Performed By: #### P T, IOCAL, CBC, IPF, HARVEY, CMPX, MG, TAMIE, TRIG, LIP #### [address] [address] Sonogram Technician: Bunny Moy MD NRBC Automated 0.0 per 100 WBC Normal 0.0 [facility] Comment on above: Performed By: #### P T, IOCAL, CBC, IPF, HARVEY, CMPX, MG, TAMIE, TRIG, LIP #### [address] [address] Sonogram Technician: Bunny Moy MD Platelets (Bld) [#/Vol] See Reflexed IPF Result Normal 138-453 [facility] Comment on above: Performed By: #### P T, IOCAL, CBC, IPF, HARVEY, CMPX, MG, TAMIE, TRIG, LIP #### [address] [address] Sonogram Technician: Bunny Moy MD RBC (Bld) [#/Vol] 5.10 10*6/uL Normal 4.21-5.77 [facility] Comment on above: Performed By: #### P T, IOCAL, CBC, IPF, HARVEY, CMPX, MG, TAMIE, TRIG, LIP #### [address] [address] Sonogram Technician: Bunny Moy MD WBC (Bld) [#/Vol] 9.1 10*3/uL Normal 3.5-11.3 [facility] Comment on above: Performed By: #### P T, IOCAL, CBC, IPF, HARVEY, CMPX, MG, TAMIE, TRIG, LIP #### [address] [address] Sonogram Technician: Bunny Moy MD Platelet mean volume (Bld) [Entitic vol] NOT REPORTED Normal 8.1-13.5 [facility] Comment on above: Performed By: #### P T, IOCAL, CBC, IPF, HARVEY, CMPX, MG, TAMIE, TRIG, LIP #### [address] [place] [address] Sonogram Technician: Bunny Moy MD Erythrocyte distribution width (RBC) [Ratio] 12.4 % 11.8 - 14.4 % [place] Hematocrit (Bld) [Volume fraction] 48.2 % 40.7 - 50.3 % [place] Hemoglobin (Bld) [Mass/Vol] 16.1 g/dL 13 - 17 g/dL [place] MCH (RBC) [Entitic mass] 31.6 pg 25.2 - 33.5 pg [place] MCHC (RBC) [Mass/Vol] 33.4 g/dL 28.4 - 34.8 g/dL [place] MCV (RBC) [Entitic vol] 94.5 fL 82.6 - 102.9 fL [place] Platelet mean volume (Bld) [Entitic vol] NOT REPORTED 8.1 - 13.5 fL [place] Platelets (Bld) [#/Vol] See Reflexed IPF Result [place] RBC (Bld) [#/Vol] 5.10 10*6/uL 4.21 - 5.77 m/uL [place] WBC (Bld) [#/Vol] 9.1 10*3/uL [place] WBC (Bld) [#/Vol] 0.0 10*3/uL 0.0 per 100 WBC [place] Calcium, Ionicon 04-12-2019 Calcium [Mass/Vol] 1.01 mmol/L Low 1.13-1.33 [facility] Comment on above: Performed By: #### P T, IOCAL, CBC, IPF, HARVEY, CMPX, MG, TAMIE, TRIG, LIP #### [facility] [address] [place], [place] [phone] Sonogram Technician: Bunny Moy MD Calcium, Ionizedon 9 Calcium [Mass/Vol] 1.01 mmol/L Low 1.13 - 1.33 mmol/L [place] Interpretation and review of laboratory results Abnormal [facility] [place] Comp Metabolic Pr/rfx MGon 1 - Albumin [Mass/Vol] 3.2 g/dL Low 3.5-5.2 [facility] Comment on above: Performed By: #### P T, IOCAL, CBC, IPF, HARVEY, CMPX, MG, TAMIE, TRIG, LIP #### [address] [phone] Sonogram Technician: Bunny Moy MD Albumin/Globulin [Mass ratio] 1.1 {ratio} Normal 1.0-2.5 [facility] Comment on above: Performed By: #### P T, IOCAL, CBC, IPF, HARVEY, CMPX, MG, TAMIE, TRIG, LIP #### [address] [phone] Sonogram Technician: Bunny Moy MD Alkaline Phos 49 U/L Normal 40-129 [facility] Comment on above: Result Comment: SPEC IMEN SLIGHTLY HEMOLYZED, RESULTS MAY BE ADVERSELY AFFECTED. Performed By: #### P T, IOCAL, CBC, IPF, HARVEY, CMPX, MG, TAMIE, TRIG, LIP #### [address] [phone] Sonogram Technician: Bunny Moy MD ALT [Catalytic activity/Vol] 192 U/L High 5-41 [facility] Comment on above: Result Comment: SPEC IMEN SLIGHTLY HEMOLYZED, RESULTS MAY BE ADVERSELY AFFECTED. Performed By: #### P T, IOCAL, CBC, IPF, HARVEY, CMPX, MG, TAMIE, TRIG, LIP #### [address] [phone] Sonogram Technician: Bunny Moy MD Anion gap [Moles/Vol] 14 mmol/L Normal 9-17 [facility] Comment on above: Performed By: #### P T, IOCAL, CBC, IPF, HARVEY, CMPX, MG, TAMIE, TRIG, LIP #### [address] [address] Sonogram Technician: Bunny Moy MD AST [Catalytic activity/Vol] 113 U/L High <40 [facility] Comment on above: Result Comment: SPEC IMEN SLIGHTLY HEMOLYZED, RESULTS MAY BE ADVERSELY AFFECTED. Performed By: #### P T, IOCAL, CBC, IPF, HARVEY, CMPX, MG, TAMIE, TRIG, LIP #### [facility] [address] [place] [address] Sonogram Technician: Bunny Moy MD Bilirubin Ql (U) 1.33 mg/dL High 0.3-1.2 [facility] Comment on above: Performed By: #### P T, IOCAL, CBC, IPF, HARVEY, CMPX, MG, TAMIE, TRIG, LIP #### [facility] [address] [place] [address] Sonogram Technician: Bunny Moy MD Calcium [Mass/Vol] 7.6 mg/dL Low 8.6-10.4 [facility] Comment on above: Performed By: #### P T, IOCAL, CBC, IPF, HARVEY, CMPX, MG, TAMIE, TRIG, LIP #### [facility] [address] [place] [address] Sonogram Technician: Bunny Moy MD Chloride [Moles/Vol] 103 mmol/L Normal 98-107 [facility] Comment on above: Performed By: #### P T, IOCAL, CBC, IPF, HARVEY, CMPX, MG, TAMIE, TRIG, LIP #### [facility] [address] [place] [address] Sonogram Technician: Bunny Moy MD CO2 [Moles/Vol] 21 mmol/L Normal 20-31 [facility] Comment on above: Performed By: #### P T, IOCAL, CBC, IPF, HARVEY, CMPX, MG, TAMIE, TRIG, LIP #### [facility] [address] [place] [address] Sonogram Technician: Bunny Moy MD Creatinine [Mass/Vol] 0.56 mg/dL Low 0.70-1.20 [facility] Comment on above: Performed By: #### P T, IOCAL, CBC, IPF, HARVEY, CMPX, MG, TAMIE, TRIG, LIP #### [address] [address] Sonogram Technician: Bunny Moy MD GFR, Amer >60 Normal >60 [facility] Comment on above: Performed By: #### P T, IOCAL, CBC, IPF, HARVEY, CMPX, MG, TAMIE, TRIG, LIP #### [address] [address] Sonogram Technician: Bunny Moy MD GFR,non Amer >60 Normal >60 [facility] Comment on above: Performed By: #### P T, IOCAL, CBC, IPF, HARVEY, CMPX, MG, TAMIE, TRIG, LIP #### [address] [address] Sonogram Technician: Bunny Moy MD Glucose [Mass/Vol] 159 mg/dL High 70-99 [facility] Comment on above: Performed By: #### P T, IOCAL, CBC, IPF, HARVEY, CMPX, MG, TAMIE, TRIG, LIP #### [address] [address] Sonogram Technician: Bunny Moy MD Potassium [Moles/Vol] 4.2 mmol/L Normal 3.7-5.3 [facility] Comment on above: Result Comment: SPEC IMEN SLIGHTLY HEMOLYZED, RESULTS MAY BE ADVERSELY AFFECTED. Performed By: #### P T, IOCAL, CBC, IPF, HARVEY, CMPX, MG, TAMIE, TRIG, LIP #### [address] [address] Sonogram Technician: Bunny Moy MD Protein [Mass/Vol] 6.0 g/dL Low 6.4-8.3 [facility] Comment on above: Performed By: #### P T, IOCAL, CBC, IPF, HARVEY, CMPX, MG, TAMIE, TRIG, LIP #### [address] [phone] Sonogram Technician: Bunny oMy MD Sodium [Moles/Vol] 138 mmol/L Normal 135-144 [facility] Comment on above: Performed By: #### P T, IOCAL, CBC, IPF, HARVEY, CMPX, MG, TAMIE, TRIG, LIP #### [address] [phone] Sonogram Technician: Bunny Moy MD Urea nitrogen [Mass/Vol] 15 mg/dL Normal 8-23 [facility] Comment on above: Performed By: #### P T, IOCAL, CBC, IPF, HARVEY, CMPX, MG, TAMIE, TRIG, LIP #### [address] [phone] Sonogram Technician: Bunny Moy MD (cont.) Normal [facility] Comment on above: Result Comment: Aver age GFR for 60-69 years old: 85 mL/min/1.73sq m Chronic Kidney Disease: <60 mL/min/1.73sq m Kidney failure: <15 mL/min/1.73sq m eGFR calculated using average adult body mass. Additional eGFR calculator available at: http://www.[employer].com/multiple_crcl_2012.htm Performed By: #### P T, IOCAL, CBC, IPF, HARVEY, CMPX, MG, TAMIE, TRIG, LIP #### [address] [phone] Sonogram Technician: Bunny Moy MD BUN/CRE Ratio NOT REPORTED Normal 9-20 [facility] Comment on above: Performed By: #### P T, IOCAL, CBC, IPF, HARVEY, CMPX, MG, TAMIE, TRIG, LIP #### [facility] [address] [place] [address], [place] [phone] Sonogram Technician: Bunny Moy MD Staging: NOT REPORTED Normal [facility] Comment on above: Performed By: #### P T, IOCAL, CBC, IPF, HARVEY, CMPX, MG, TAMIE, TRIG, LIP #### [facility] [address] [place], [place] [phone] Sonogram Technician: Bunny Moy MD Comprehensive Metabolic Pane l w/ Reflex to MGon 04-12-2019 Albumin [Mass/Vol] 3.2 g/dL Low 3.5 - 5.2 g/dL [place] Albumin/Globulin [Mass ratio] 1.1 {ratio} [place] ALP [Catalytic activity/Vol] 49 U/L 40 - 129 U/L [place] Comment on above: SPECIMEN SLIGHTLY HE MOLYZED, RESULTS MAY BE ADVERSELY AFFECTED. ALT [Catalytic activity/Vol] 192 U/L High 5 - 41 U/L [place] Comment on above: SPECIMEN SLIGHTLY HE MOLYZED, RESULTS MAY BE ADVERSELY AFFECTED. Anion gap [Moles/Vol] 14 mmol/L 9 - 17 mmol/L [place] AST [Catalytic activity/Vol] 113 U/L High <40 [place] Comment on above: SPECIMEN SLIGHTLY HE MOLYZED, RESULTS MAY BE ADVERSELY AFFECTED. Bilirubin Ql (U) 1.33 mg/dL High 0.3 - 1.2 mg/dL [place] Bun/Cre Ratio NOT REPORTED [place] Calcium [Mass/Vol] 7.6 mg/dL Low 8.6 - 10. 4 mg/dL [place] Chloride [Moles/Vol] 103 mmol/L 98 - 10 7 mmol/L [place] CO2 [Moles/Vol] 21 mmol/L 20 - 31 mmol/L [place] Creatinine [Mass/Vol] 0.56 mg/dL Low 0.7 - 1.2 mg/dL [place] GFR >60 >60 mL/min [place] GFR Non- >60 >60 mL/min [place] GFR/1.73 sq M predicted among non-blacks MDRD (S/P/Bld) [Vol rate/Area] NOT REPORTED [place] GFR/1.73 sq M predicted among non-blacks MDRD (S/P/Bld) [Vol rate/Area] [place] Comment on above: Average GFR for 60-6 9 years old: 85 mL/min/1.73sq m Chronic Kidney Disease: <60 mL/min/1.73sq m Kidney failure: <15 mL/min/1.73sq m eGFR calculated using average adult body mass. Additional eGFR calculator available at: http://www.[employer]/multiple_crcl_2012.htm Glucose [Mass/Vol] 159 mg/dL High 70 - 99 mg/dL [place] Interpretation and review of laboratory results Abnormal [place] Potassium [Moles/Vol] 4.2 mmol/L 3.7 - 5.3 mmol/L [place] Comment on above: SPECIMEN SLIGHTLY HE MOLYZED, RESULTS MAY BE ADVERSELY AFFECTED. Protein [Mass/Vol] 6.0 g/dL Low 6.4 - 8.3 g/dL [place] Sodium [Moles/Vol] 138 mmol/L 135 - 144 mmol/L [place] Urea nitrogen [Mass/Vol] 15 mg/dL 8 - 23 mg/dL [place] ERCP BILIARY AND PANCREAT IC S AND Ion 04-12-2019 FL ERCP BILIARY AND PANCREATIC S AND I EXAMINATION: 4 SPOT IMAGES FROM AN ERCP COMPARISON: None FLUOROSCOPY DOSE OR TIME/IMAGES: 112.2 seconds fluoro time, 76.75 mGy, 4 images. HISTORY: ORDERING SYSTEM PROVIDED HISTORY: intra op TECHNOLOGIST PROVIDED HISTORY: intra op Reason for Exam: ERCP, fluoro time: 112.2 sec Air Kerma: 76.75 mGy, Images: 4 Acuity: Unknown Type of Exam: Unknown FINDINGS: Endoscopy and cannulation of the major papilla was performed by the gastroenterology service under the supervision of LEONELA FENTON. Spot views are presented for interpretation. Contrast is identified in the intrahepatic and extrahepatic bile ducts. Initial images demonstrate small filling defects in the distal common bile duct suspicious for choledocholithiasis. Later images do not demonstrate filling defects suggesting stone extraction. No filling defects noted in the common hepatic and right and left hepatic ducts. IMPRESSION: ERCP images demonstrate filling defects distal common bowel duct on the initial images, not replicated on later images suggesting stone extraction. Bile ducts are smoothly demarcated without nodularity. Please refer to the procedure report for further details. Interpreted by: Lyn Colby MD Signed by: Lyn Colby MD 04/12/19 Final result Normal [facility] [place] ERCP BILIARY AND PANCREAT IC S&Ion 04-12-2019 ERCP images demonstr ate filling defects distal common bowel duct on the initial images, not replicated on later images suggesting stone extraction. Bile ducts are smoothly demarcated without nodularity. Please refer to the procedure report for further details. [place] EXAMINATION: 4 SPOT IMAGES FROM AN ERCP COMPARISON: None FLUOROSCOPY DOSE OR TIME/IMAGES: 112.2 seconds fluoro time, 76.75 mGy, 4 images. HISTORY: ORDERING SYSTEM PROVIDED HISTORY: intra op TECHNOLOGIST PROVIDED HISTORY: intra op Reason for Exam: ERCP, fluoro time: 112.2 sec Air Kerma: 76.75 mGy, Images: 4 Acuity: Unknown Type of Exam: Unknown FINDINGS: Endoscopy and cannulation of the major papilla was performed by the gastroenterology service under the supervision of LEONELA FENTON. Spot views are presented for interpretation. Contrast is identified in the intrahepatic and extrahepatic bile ducts. Initial images demonstrate small filling defects in the distal common bile duct suspicious for choledocholithiasis. Later images do not demonstrate filling defects suggesting stone extraction. No filling defects noted in the common hepatic and right and left hepatic ducts. [place], [place] Zev, Mhpn Incoming R adiant Results From [facility]/Pacs - 04/12/2019 2:47 PM EDT EXAMINATION: 4 SPOT IMAGES FROM AN ERCP COMPARISON: None FLUOROSCOPY DOSE OR TIME/IMAGES: 112.2 seconds fluoro time, 76.75 mGy, 4 images. HISTORY: ORDERING SYSTEM PROVIDED HISTORY: intra op TECHNOLOGIST PROVIDED HISTORY: intra op Reason for Exam: ERCP, fluoro time: 112.2 sec Air Kerma: 76.75 mGy, Images: 4 Acuity: Unknown Type of Exam: Unknown FINDINGS: Endoscopy and cannulation of the major papilla was performed by the gastroenterology service under the supervision of LEONELA FENTON. Spot views are presented for interpretation. Contrast is identified in the intrahepatic and extrahepatic bile ducts. Initial images demonstrate small filling defects in the distal common bile duct suspicious for choledocholithiasis. Later images do not demonstrate filling defects suggesting stone extraction. No filling defects noted in the common hepatic and right and left hepatic ducts. IMPRESSION: ERCP images demonstrate filling defects distal common bowel duct on the initial images, not replicated on later images suggesting stone extraction. Bile ducts are smoothly demarcated without nodularity. Please refer to the procedure report for further details. [place] Immature Platelet Fractionon 04-12-2019 Interpretation and review of laboratory results Abnormal [place] Platelet, Fluorescence [address] [place] Comment on above: ORDERED BY LAB Platelet, Immature Fraction 1.9 % 1.1 - 10.3 % [place] Comment on above: ORDERED BY LAB LIPASEon 04-12-2019 Interpretation and review of laboratory results Abnormal [place] Lipase [Catalytic activity/Vol] 875 U/L High 13 - 60 U/L [place] Lipaseon 04-12-2019 Lipase [Catalytic activity/Vol] 875 U/L High 13-60 [facility] Comment on above: Performed By: #### C MPX, LIP #### [facility] [address] [place] [address] [phone] Sonogram Technician: Bunny Moy MD Magnesiumon 04-12-2019 Magnesium [Mass/Vol] 1.7 mg/dL Normal 1.6-2.6 [facility] Comment on above: Performed By: #### P T, IOCAL, CBC, IPF, HARVEY, CMPX, MG, TAMIE, TRIG, LIP #### [facility] [place] [address] Sonogram Technician: Bunny Moy MD Magnesium [Mass/Vol] 1.7 mg/dL 1.6 - 2 .6 mg/dL [place] PLT, Immature Fract.on 04-12 Platelet, Fluoresc. 126 k/uL Low 138-453 [facility] Comment on above: Result Comment: ORDE RED BY LAB Performed By: #### P T, IOCAL, CBC, IPF, HARVEY, CMPX, MG, TAMIE, TRIG, LIP #### [address] [phone] Sonogram Technician: Bunny Moy MD PLT, Immature Fract. 1.9 % Normal 1.1-10.3 [facility] Comment on above: Result Comment: ORDE RED BY LAB Performed By: #### P T, IOCAL, CBC, IPF, HARVEY, CMPX, MG, TAMIE, TRIG, LIP #### [address] [phone] Sonogram Technician: Bunny Moy MD POC Glucose Fingerstickon Glucose [Mass/Vol] 229 mg/dL High 75 - 110 mg/dL [place] Interpretation and review of laboratory results Abnormal [place] Glucose [Mass/Vol] 262 mg/dL High 75 - 110 mg/dL [place] Interpretation and review of laboratory results Abnormal [place] Glucose [Mass/Vol] 183 mg/dL High 75 - 110 mg/dL [place] Interpretation and review of laboratory results Abnormal [place] Glucose [Mass/Vol] 137 mg/dL High 75 - 110 mg/dL [place] Interpretation and review of laboratory results Abnormal [place] Glucose [Mass/Vol] 168 mg/dL High 75 - 110 mg/dL [place] Interpretation and review of laboratory results Abnormal [place] PTon 04-12-2019 INR Coag (PPP) [Relative time] 1.2 {INR} Normal [facility] Comment on above: Result Comment: Therapeutic Range: Moderate Anticoagulant Intensity: INR = 2.0-3.0 High Anticoagulant Intensity: INR = 2.5-3.5 Performed By: #### P T, IOCAL, CBC, IPF, HARVEY, CMPX, MG, TAMIE, TRIG, LIP #### [facility] [address] [place] [address] [phone] Sonogram Technician: Bunny Moy MD PT Coag (PPP) [Time] 12.9 s High 9.0-12.0 [facility] Comment on above: Performed By: #### P T, IOCAL, CBC, IPF, HARVEY, CMPX, MG, TAMIE, TRIG, LIP #### [facility] [place], [place] [phone] Sonogram Technician: Bunny Moy MD Phosphoruson 04-12-2019 Phosphate [Mass/Vol] 2.9 mg/dL 2.5 - 4 .5 mg/dL [place] Phosphorus, Inorg.on 019 Phosphorus, Inorg. 2.9 mg/dL Normal 2.5-4.5 [facility] Comment on above: Performed By: #### C MPX, LIP #### [facility] [address] [place] [phone] Sonogram Technician: Bunny Moy MD Protime-INRon 04-12-2019 INR Coag (PPP) [Relative time] 1.2 {INR} [place], [place] Comment on above: Therapeutic Range: Moderate Anticoagulant Intensity: INR = 2.0-3.0 High Anticoagulant Intensity: INR = 2.5-3.5 Interpretation and review of laboratory results Abnormal [place], [place] PT Coag (PPP) [Time] 12.9 s [place] Triglycerideon 04-12-2019 Triglyceride [Mass/Vol] 95 mg/dL <150 M [place] Comment on above: Triglyceride Guidelines: <150 Desirable 150-199 Borderline 200-499 High >499 Very high Based on AHA Guidelines for fasting triglyceride, April 2012. Triglycerideson 04-12-2019 Triglyceride [Mass/Vol] 95 mg/dL Normal <150 M [facility] Comment on above: Result Comment: Triglyceride Guidelines: <150 Desirable 150-199 Borderline 200-499 High >499 Very high Based on AHA Guidelines for fasting triglyceride, April 2012. Performed By: #### C MPX, LIP #### [facility] [address] [place] [address] [phone] Sonogram Technician: Bunny Moy MD Comp Metabolic Pr/rfx MGon 1 (cont.) Normal [facility] Comment on above: Result Comment: Aver age GFR for 60-69 years old: 85 mL/min/1.73sq m Chronic Kidney Disease: <60 mL/min/1.73sq m Kidney failure: <15 mL/min/1.73sq m eGFR calculated using average adult body mass. Additional eGFR calculator available at: http://www.Sporterpilot/multiple_crcl_2011.htm Performed By: #### C MPX, LIP #### [facility] [address] [place] [id number] Sonogram Technician: Bunny Moy MD Albumin [Mass/Vol] 4.0 g/dL Normal 3.5-5.2 [facility] Comment on above: Performed By: #### C MPX, LIP #### [facility] [address] [place] [address] [phone] Sonogram Technician: Bunny Moy MD Albumin/Globulin [Mass ratio] 1.3 {ratio} Normal 1.0-2.5 [facility] Comment on above: Performed By: #### C MPX, LIP #### [facility] [address] [place] [address] [id number] Sonogram Technician: Bunny Moy MD Alkaline Phos 64 U/L Normal 40-129 [facility] Comment on above: Performed By: #### C MPX, LIP #### [facility] [address] [place] [address] [phone] Sonogram Technician: Bunny Moy MD ALT [Catalytic activity/Vol] 284 U/L High 5-41 [facility] Comment on above: Performed By: #### C MPX, LIP #### [facility] [address] [place] [address] [phone] Sonogram Technician: Bunny Moy MD Anion gap [Moles/Vol] 18 mmol/L High 9-17 [facility] Comment on above: Performed By: #### C MPX, LIP #### [facility] [place] [address] Sonogram Technician: Bunny Moy MD AST [Catalytic activity/Vol] 250 U/L High <40 [facility] Comment on above: Performed By: #### C MPX, LIP #### [facility] [address] [place] [address] [phone] Sonogram Technician: Bunny Moy MD Bilirubin Ql (U) 1.34 mg/dL High 0.3-1.2 [facility] Comment on above: Performed By: #### C MPX, LIP #### [facility] [address] [place] [id number] Sonogram Technician: Bunny Moy MD Calcium [Mass/Vol] 8.5 mg/dL Low 8.6-10.4 [facility] Comment on above: Performed By: #### C MPX, LIP #### [facility] [address] [place] [address] [phone] Sonogram Technician: Bunny Moy MD Chloride [Moles/Vol] 103 mmol/L Normal 98-107 [facility] Comment on above: Performed By: #### C MPX, LIP #### [facility] [address] [place] [address] [phone] Sonogram Technician: Bunny Moy MD CO2 [Moles/Vol] 20 mmol/L Normal 20-31 [facility] Comment on above: Performed By: #### C MPX, LIP #### [facility] [address] [place] [address] [phone] Sonogram Technician: Bunny Moy MD Creatinine [Mass/Vol] 0.50 mg/dL Low 0.70-1.20 [facility] Comment on above: Performed By: #### C MPX, LIP #### [facility] [address] [place] [address] [id number] Sonogram Technician: Bunny Moy MD GFR, Amer >60 Normal >60 [facility] Comment on above: Performed By: #### C MPX, LIP #### [facility] [address] [place] [address] [phone] Sonogram Technician: Bunny Moy MD GFR,non Amer >60 Normal >60 [facility] Comment on above: Performed By: #### C MPX, LIP #### [facility] [address] [place] [address] [phone] Sonogram Technician: Bunny Moy MD Glucose [Mass/Vol] 173 mg/dL High 70-99 [facility] Comment on above: Performed By: #### C MPX, LIP #### [facility] [address] [place] [address] [phone] Sonogram Technician: Bunny Moy MD Potassium [Moles/Vol] 4.4 mmol/L Normal 3.7-5.3 [facility] Comment on above: Performed By: #### C MPX, LIP #### [address] [address] Sonogram Technician: Bunny Moy MD Protein [Mass/Vol] 7.0 g/dL Normal 6.4-8.3 [facility] Comment on above: Performed By: #### C MPX, LIP #### [facility] [address] [place] [address] [phone] Sonogram Technician: Bunny Moy MD Sodium [Moles/Vol] 141 mmol/L Normal 135-144 [facility] Comment on above: Performed By: #### C MPX, LIP #### [facility] [address] [place] [address] [phone] Sonogram Technician: Bunny Moy MD Urea nitrogen [Mass/Vol] 11 mg/dL Normal 8-23 [facility] Comment on above: Performed By: #### C MPX, LIP #### [facility] [address] [place], [place] [phone] Sonogram Technician: Bunny Moy MD BUN/CRE Ratio NOT REPORTED Normal - [facility] Comment on above: Performed By: #### C MPX, LIP #### [facility] [address] [place], [place] [phone] Sonogram Technician: Bunny Moy MD Staging: NOT REPORTED Normal [facility] Comment on above: Performed By: #### C MPX, LIP #### [facility] [address] [place], [place] [phone] Sonogram Technician: Bunny Moy MD Comprehensive Metabolic Pane l w/ Reflex to MGon 04-11-2019 Albumin [Mass/Vol] 4 g/dL 3.5 - 5.2 g/dL [place] Albumin/Globulin [Mass ratio] 1.3 {ratio} [place] ALP [Catalytic activity/Vol] 64 U/L 40 - 129 U/L [place] ALT [Catalytic activity/Vol] 284 U/L High 5 - 41 U/L [place] Anion gap [Moles/Vol] 18 mmol/L High 9 - 17 mmol/L [place] AST [Catalytic activity/Vol] 250 U/L High <40 [place] Bilirubin Ql (U) 1.34 mg/dL High 0.3 - 1.2 mg/dL [place] Bun/Cre Ratio NOT REPORTED [place] Calcium [Mass/Vol] 8.5 mg/dL Low 8.6 - 10. 4 mg/dL [place] Chloride [Moles/Vol] 103 mmol/L 98 - 10 7 mmol/L [place] CO2 [Moles/Vol] 20 mmol/L 20 - 31 mmol/L [place] Creatinine [Mass/Vol] 0.5 mg/dL Low 0.7 - 1.2 mg/dL [place] GFR >60 >60 mL/min [place] GFR Non- >60 >60 mL/min [place] GFR/1.73 sq M predicted among non-blacks MDRD (S/P/Bld) [Vol rate/Area] [place], [place] Comment on above: Average GFR for 60-6 9 years old: 85 mL/min/1.73sq m Chronic Kidney Disease: <60 mL/min/1.73sq m Kidney failure: <15 mL/min/1.73sq m eGFR calculated using average adult body mass. Additional eGFR calculator available at: http://www.Sporterpilot/multiple_crcl_2012.htm GFR/1.73 sq M predicted among non-blacks MDRD (S/P/Bld) [Vol rate/Area] NOT REPORTED [place], [place] Glucose [Mass/Vol] 173 mg/dL High 70 - 99 mg/dL [place] Interpretation and review of laboratory results Abnormal [place] Potassium [Moles/Vol] 4.4 mmol/L 3.7 - 5.3 mmol/L [place] Protein [Mass/Vol] 7.0 g/dL 6.4 - 8.3 g/dL [place] Sodium [Moles/Vol] 141 mmol/L 135 - 144 mmol/L [place] Urea nitrogen [Mass/Vol] 11 mg/dL 8 - 23 mg/dL [place] Lipaseon 04-11-2019 Lipase [Catalytic activity/Vol] 1552 U/L High 13-60 [facility] Comment on above: Performed By: #### C MPX, LIP #### [facility] [address] [place], [place] [phone] Sonogram Technician: Bunny Moy MD Interpretation and review of laboratory results Abnormal [place] Lipase [Catalytic activity/Vol] 1552 U/L High 13 - 60 U/L [place] MRI ABDOMEN W WO CONTRAST MR CPon 04-11-2019 Cholesterol [Mass/Vol] 1. Acute intersti tial edematous pancreatitis as described. 2. Cholelithiasis as described. 3. Normal caliber bile ducts however 2 adjacent filling defects as measured above visualized in the distal/terminal common bile duct suggesting choledocholithiasis. 4. Heterogeneous hepatic fatty infiltration. The findings were sent to the Radiology Results Communication Center at 9:02 pm on 04/11/2019to be communicated to a licensed caregiver. [place] EXAMINATION: MRI OF THE ABDOMEN WITH AND WITHOUT CONTRAST AND MRCP 04/11/2019 7:08 pm TECHNIQUE: Multiplanar multisequence MRI of the abdomen was performed with and without the administration of intravenous contrast. After initial T2 axial and coronal images, thick slab, thin slab and 3D coronal MRCP sequences were obtained without the administration of intravenous contrast. MIP images are provided for review. COMPARISON: None HISTORY: ORDERING SYSTEM PROVIDED HISTORY: gallstone pancreatitis with elevated bili-pt may need ERCP in am FINDINGS: Pancreas demonstrates homogeneous enhancement. Extensive peripancreatic inflammation with diffuse edema/fluid along the entire course of the pancreas extending to the left pericolic gutter, pancreaticoduodenal groove and right perinephric space. Findings consistent with acute interstitial edematous pancreatitis. Liver demonstrates heterogeneous fatty infiltration. Spleen, adrenal glands and kidneys appear unremarkable. Gallbladder: Multiple filling defects largest measuring approximately 2.4 cm and consistent with gallstones. No significant wall thickening or pericholecystic edema Bile Ducts: Normal caliber. 2 adjacent filling defects in the distal/terminal common bile duct measuring approximately 5-6 mm. Pancreatic Duct: Normal caliber Other: Normal caliber abdominal aorta. Major veins are patent. No significant adenopathy. Bowel loops of normal caliber. Bibasilar atelectasis with small effusions. Normal heart size. Osseous structures grossly unremarkable. Bladder appears unremarkable. Mild amount of reactive free fluid in the the pelvis. [place], [place] Zev, Mhpn Incoming R adiant Results From [facility] - 04/11/2019 9:05 PM EDT EXAMINATION: MRI OF THE ABDOMEN WITH AND WITHOUT CONTRAST AND MRCP 04/11/2019 7:08 pm TECHNIQUE: Multiplanar multisequence MRI of the abdomen was performed with and without the administration of intravenous contrast. After initial T2 axial and coronal images, thick slab, thin slab and 3D coronal MRCP sequences were obtained without the administration of intravenous contrast. MIP images are provided for review. COMPARISON: None HISTORY: ORDERING SYSTEM PROVIDED HISTORY: gallstone pancreatitis with elevated bili-pt may need ERCP in am FINDINGS: Pancreas demonstrates homogeneous enhancement. Extensive peripancreatic inflammation with diffuse edema/fluid along the entire course of the pancreas extending to the left pericolic gutter, pancreaticoduodenal groove and right perinephric space. Findings consistent with acute interstitial edematous pancreatitis. Liver demonstrates heterogeneous fatty infiltration. Spleen, adrenal glands and kidneys appear unremarkable. Gallbladder: Multiple filling defects largest measuring approximately 2.4 cm and consistent with gallstones. No significant wall thickening or pericholecystic edema Bile Ducts: Normal caliber. 2 adjacent filling defects in the distal/terminal common bile duct measuring approximately 5-6 mm. Pancreatic Duct: Normal caliber Other: Normal caliber abdominal aorta. Major veins are patent. No significant adenopathy. Bowel loops of normal caliber. Bibasilar atelectasis with small effusions. Normal heart size. Osseous structures grossly unremarkable. Bladder appears unremarkable. Mild amount of reactive free fluid in the the pelvis. IMPRESSION: 1. Acute interstitial edematous pancreatitis as described. 2. Cholelithiasis as described. 3. Normal caliber bile ducts however 2 adjacent filling defects as measured above visualized in the distal/terminal common bile duct suggesting choledocholithiasis. 4. Heterogeneous hepatic fatty infiltration. The findings were sent to the Radiology Results Communication Center at 9:02 pm on 04/11/2019to be communicated to a licensed caregiver. [place] Addendum by Sa maryse Tate MD on 04/15/2019 9:28 AM ADDENDUM: Outside CT imaging from 04/11/2019 is made available for comparison. Aforementioned findings of pancreatitis, cholelithiasis and hepatic fatty infiltration appears similar to prior CT examination. [place], [place] POC Glucose Fingerstickon Glucose [Mass/Vol] 158 mg/dL High 75 - 110 mg/dL [place] Interpretation and review of laboratory results Abnormal [place], [place] Vital Signs Date Time Vital Sign Value Performing Clinician Facility 01-05-2024 14:53-0400 Body height 172.72 cm [facility] [place] [facility] 01-05-2024 14:53-0400 Body mass index (BMI) [Ratio] 33.3 kg/m2 [facility] 01-05-2024 14:53-0400 Body weight 99.33 kg [facility] [place] [facility] 01-05-2024 14:53-0400 Diastolic blood pressure 89 mm[Hg] [facility] 01-05-2024 14:53-0400 Heart rate 73 /min [facility] [place] [facility] 01-05-2024 14:53-0400 Respiratory rate 12 /min [facility] 01-05-2024 14:53-0400 Systolic blood pressure 139 mm[Hg] [facility] 09-21-2023 09:40-0400 Body weight 101.71 kg DO Rodolfo Ball Work Phone: [facility] 09-21-2023 09:40-0400 Diastolic blood pressure 77 mm[Hg] DO Rodolfo Ball Work Phone: [facility] 09-21-2023 09:40-0400 Heart rate 62 /min DO Rodolfo Ball Work Phone: [facility] 09-21-2023 09:40-0400 Systolic blood pressure 136 mm[Hg] DO Rodolfo Ball Work Phone: [facility] 09-01-2023 14:48-0500 Body height 172.72 cm DO Rodolfo Ball Work Phone: [facility] 09-01-2023 14:48-0500 Body mass index (BMI) [Ratio] 34.4 kg/m2 DO Rodolfo Ball Work Phone: [facility] 09-01-2023 14:48-0500 Body weight 102.68 kg DO Rodolfo Ball Work Phone: [facility] 09-01-2023 14:48-0500 Diastolic blood pressure 92 mm[Hg] DO Rodolfo Ball Work Phone: [facility] 09-01-2023 14:48-0500 Heart rate 69 /min DO Rodolfo Ball Work Phone: [facility] 09-01-2023 14:48-0500 Respiratory rate 12 /min DO Rodolfo Ball Work Phone: [facility] 09-01-2023 14:48-0500 Systolic blood pressure 160 mm[Hg] DO Rodolfo Ball Work Phone: [facility] 07-11-2023 14:30-0500 Body height 172.72 cm Rodolfo Ball Other [facility] 07-11-2023 14:30-0500 Body mass index (BMI) [Ratio] 36.06 kg/m2 Rodolfo Ball Other [facility] Other 07-11-2023 14:30-0500 Body weight 107.59 kg Rodolfo Ball Other [facility] 07-11-2023 14:30-0500 Diastolic blood pressure 80 mm[Hg] Rodolfo Ball Other [facility] 07-11-2023 14:30-0500 Respiratory rate 12 /min Rodolfo Ball Other [facility] Other 07-11-2023 14:30-0500 Systolic blood pressure 140 mm[Hg] Rodolfo Ball Other [facility] 05-26-2023 11:15-0500 Body height 172.72 cm Rodolfo Ball Other [facility] 05-26-2023 11:15-0500 Body mass index (BMI) [Ratio] 35.51 kg/m2 Rodolfo Ball Other [facility] Other 05-26-2023 11:15-0500 Body weight 105.96 kg Rodolfo Ball Other [facility] Other 05-26-2023 11:15-0500 Body weight 105.95 kg DO Rodolfo Ball Work Phone: [facility] 05-26-2023 11:15-0500 Diastolic blood pressure 84 mm[Hg] Rodolfo Ball Other [facility] 05-26-2023 11:15-0500 Systolic blood pressure 155 mm[Hg] Rodolfo Ball Other [facility] 03-30-2023 12:20-0400 Diastolic blood pressure 62 mm[Hg] DO Rodolfo Ball Work Phone: [facility] 03-30-2023 12:20-0400 Heart rate 62 /min DO Rodolfo Ball Work Phone: [facility] 03-30-2023 12:20-0400 Respiratory rate 16 /min DO Rodolfo Ball Work Phone: [facility] 03-30-2023 12:20-0400 SaO2% (BldA) [Mass fraction] 97 % DO Rodolfo Ball Work Phone: [facility] 03-30-2023 12:20-0400 Systolic blood pressure 122 mm[Hg] DO Rodolfo Ball Work Phone: [facility] 03-30-2023 10:29-0400 Body height 175.26 cm DO Rodolfo Ball Work Phone: [facility] 03-30-2023 10:29-0400 Body weight 104.32 kg DO Rodolfo Ball Work Phone: [facility] 03-23-2023 09:00-0400 Body height 172.72 cm Imad Asaad Other [facility] Other 03-23-2023 09:00-0400 Body mass index (BMI) [Ratio] 34.82 kg/m2 Imad Asaad Other [facility] Other 03-23-2023 09:00-0400 Body weight 103.87 kg Imad Asaad Other [employer] Other 03-23-2023 09:00-0400 Diastolic blood pressure 78 mm[Hg] Imad Asaad Other [employer] Other 03-23-2023 09:00-0400 Systolic blood pressure 171 mm[Hg] Imad Asaad Other [employer] Other 02-22-2023 15:45-0400 Body height 172.72 cm Rodolfo Ball Other [employer] Other 02-22-2023 15:45-0400 Body mass index (BMI) [Ratio] 35.88 kg/m2 Rodolfo Ball Other [employer] Other 02-22-2023 15:45-0400 Body weight 107.05 kg Rodolfo Ball Other [employer] Other 02-22-2023 15:45-0400 Diastolic blood pressure 82 mm[Hg] Rodolfo Ball Other [employer] Other 02-22-2023 15:45-0400 Respiratory rate 12 /min Rodolfo Ball Other [employer] Other 02-22-2023 15:45-0400 Systolic blood pressure 143 mm[Hg] Rodolfo Ball Other [employer] Other 01-25-2023 15:15-0400 Body height 172.72 cm Imad Asaad Other [employer] Other 01-25-2023 15:15-0400 Body mass index (BMI) [Ratio] 36.18 kg/m2 Imad Asaad Other [employer] Other 01-25-2023 15:15-0400 Body weight 107.96 kg Imad Asaad Other [employer] Other 01-25-2023 15:15-0400 Diastolic blood pressure 70 mm[Hg] Imad Asaad Other [employer] Other 01-25-2023 15:15-0400 Systolic blood pressure 144 mm[Hg] Imad Asaad Other [employer] Other 12-02-2022 13:45-0400 Body height 172.72 cm Rodolfo Ball Other [employer] Other 12-02-2022 13:45-0400 Body mass index (BMI) [Ratio] 36.24 kg/m2 Rodolfo Ball Other [employer] Other 12-02-2022 13:45-0400 Body weight 108.14 kg Rodolfo Ball Other [employer] Other 12-02-2022 13:45-0400 Diastolic blood pressure 86 mm[Hg] Rodolfo Ball Other [employer] Other 12-02-2022 13:45-0400 Respiratory rate 12 /min Rodolfo Ball Other [employer] Other 12-02-2022 13:45-0400 Systolic blood pressure 147 mm[Hg] Rodolfo Ball Other [employer] Other 11-04-2022 15:00-0400 Body height 172.72 cm Rodolfo Ball Other [employer] Other 11-04-2022 15:00-0400 Body mass index (BMI) [Ratio] 36.81 kg/m2 Rodolfo Ball Other [employer] Other 11-04-2022 15:00-0400 Body weight 109.82 kg Rodolfo Ball Other [employer] Other 11-04-2022 15:00-0400 Diastolic blood pressure 82 mm[Hg] Rodolfo Ball Other [employer] Other 11-04-2022 15:00-0400 SaO2% (BldA) [Mass fraction] 96 % Rodolfo Ahmadi Other [employer] Other 11-04-2022 15:00-0400 Systolic blood pressure 130 mm[Hg] Rodolfo Ahmadi Other [employer] Other 04-18-2019 08:27-0400 Body Temperature 97.59 [degF] [place] 04-18-2019 08:27-0400 BP Diastolic 86 mm[Hg] [place] 04-18-2019 08:27-0400 BP Systolic 146 mm[Hg] [place] 04-18-2019 08:27-0400 Pulse (Heart Rate) 59 /min [place] 04-18-2019 08:27-0400 Pulse Oximetry 95 % [place] 04-18-2019 08:27-0400 Respiratory Rate 16 /min [place] 04-17-2019 09:40-0400 BMI (Body Mass Index) 35 kg/m2 [place] 04-17-2019 09:40-0400 Body weight 107.5 kg [place] 04-17-2019 09:40-0400 Height 175.3 cm [place] Encounters Encounter Date Encounter Type Care Provider Facility Start: 01-05-2024 End: 01-05-2024 ambulatory [facility] Work Phone: Start: 01-05-2024 End: 01-05-2024 Patient encounter procedure [facility] Work Phone: Start: 11-08-2023 End: 11-08-2023 ambulatory DO Rodolfo Galdino Work Phone: [facility] Work Phone: Start: 11-08-2023 End: 11-08-2023 Patient encounter procedure DO Rodolfo Ball Work Phone: [facility] Work Phone: Start: 09-27-2023 End: 09-27-2023 ambulatory DO Rodolfo Ball Work Phone: [facility] Work Phone: Start: 09-27-2023 End: 09-27-2023 Patient encounter procedure DO Rodolfo Ball Work Phone: [facility] Work Phone: Start: 09-22-2023 Non-patient / Non-visit DO Rodolfo Ball Work Phone: [facility] Physician [facility] Work Phone: Start: 09-21-2023 End: 09-21-2023 ambulatory DO Rodolfo Ball Work Phone: [facility] Work Phone: Start: 09-21-2023 End: 09-21-2023 Patient encounter procedure DO Rodolfo Ball Work Phone: [facility] Physician [facility] Work Phone: Start: 09-20-2023 End: 09-20-2023 ambulatory Imad Asaad Facility:[facility] Start: 09-20-2023 End: 09-20-2023 ambulatory DO Rodolfo Ball Work Phone: [facility] Work Phone: Start: 09-20-2023 End: 09-20-2023 Patient encounter procedure DO Rodolfo Ball Work Phone: [facility] [place] Work Phone: Start: 09-01-2023 End: 09-01-2023 Patient encounter procedure DO Rodolfo Ball Work Phone: [facility] Physician [facility] Work Phone: Start: 08-22-2023 End: 08-22-2023 ambulatory Cory Zeng Facility:[facility] Start: 08-22-2023 End: 08-22-2023 ambulatory DO Rodolfo Ball Work Phone: [facility] Work Phone: Start: 08-22-2023 End: 08-22-2023 Patient encounter procedure DO Rodolfo Ball Work Phone: [facility] [address] Work Phone: Start: 07-11-2023 End: 07-11-2023 ambulatory Rodolfo Ball Other [employer] Other Start: 07-11-2023 Office outpatient visit 25 minutes Rodolfo Ball [facility] Start: 07-11-2023 End: 07-11-2023 Patient encounter procedure DO Rodolfo Ball Work Phone: [facility] Work Phone: Start: 07-05-2023 End: 07-05-2023 ambulatory Rodolfo Ball Other [employer] Other Start: 07-05-2023 Telephone encounter Rodolfo Ball [facility] Start: 05-28-2023 End: 05-28-2023 ambulatory Rodolfo Ball Other [employer] Other Start: 05-28-2023 Telephone encounter Rodolfo Ball [facility] Start: 05-26-2023 End: 05-26-2023 ambulatory Rodolfo Ball Other [employer] Other Start: 05-26-2023 Office outpatient visit 25 minutes Rodolfo Ball [facility] Start: 05-26-2023 End: 05-26-2023 Patient encounter procedure DO Rodolfo Ball Work Phone: [facility] Work Phone: Start: 04-13-2023 End: 04-13-2023 ambulatory Rodolfo Ball Other [employer] Other Start: 04-13-2023 Telephone encounter Rodolfo OLSEN [facility] Start: 04-11-2023 End: 04-11-2023 ambulatory Rodolfo Ahmadi Other [employer] Other Start: 04-11-2023 Telephone encounter Rodolfo OLSEN [facility] Start: 03-30-2023 Telephone encounter Rodolfo OLSEN [facility] Start: 03-30-2023 End: 03-30-2023 ambulatory Osmar Mathis Facility:[facility] Start: 03-30-2023 End: 03-30-2023 Admission to same day surgery center DO Rodolfo Ahmadi Work Phone: [facility] Work Phone: Start: 03-30-2023 End: 03-30-2023 ambulatory DO Rodolfo Ahmadi Work Phone: [facility] Work Phone: Start: 03-23-2023 End: 03-23-2023 ambulatory Imad Asaad Other [employer] Other Start: 03-23-2023 Office outpatient visit 25 minutes Imad Asaad [facility] Start: 02-24-2023 End: 02-24-2023 ambulatory Rodolfo Ahmadi Other [employer] Other Start: 02-24-2023 Telephone encounter Rodolfo Ahmadi [facility] Start: 02-22-2023 End: 02-22-2023 ambulatory Rodolfo Ahmadi Other [employer] Other Start: 02-22-2023 Office outpatient visit 25 minutes Rodolfo Ahmadi [facility] Start: 02-22-2023 Telephone encounter Rodolfo OLSEN [facility] Start: 02-13-2023 End: 02-13-2023 ambulatory Imad Asaad Facility:[facility] Start: 02-13-2023 End: 02-13-2023 Patient encounter procedure DO Rodolfo Ball Work Phone: [facility]-CT Scan [facility] [place] Work Phone: Start: 02-10-2023 End: 02-10-2023 ambulatory Rodolfo Ahmadi Other [employer] Other Start: 02-10-2023 Telephone encounter [facility] Start: 02-09-2023 End: 02-09-2023 ambulatory Imad Asaad Facility:[facility] Start: 02-09-2023 End: 02-09-2023 ambulatory DO Rodolfo Ball Work Phone: [facility] Work Phone: Start: 02-09-2023 End: 02-09-2023 Patient encounter procedure DO Rodolfo Ball Work Phone: [facility]-Dig[facility] Work Phone: Start: 01-30-2023 End: 01-30-2023 ambulatory Imad Asaad Other [employer] Other Start: 01-30-2023 Telephone encounter Imad Asaad [facility] Start: 01-25-2023 End: 01-25-2023 ambulatory Imad Asaad Facility:[facility] Start: 01-25-2023 End: 01-25-2023 Patient encounter procedure DO Rodolfo Galdino Work Phone: [facility]-Lab [facility] [place] Work Phone: Start: 01-25-2023 End: 01-25-2023 ambulatory DO Rodolfo Ball Work Phone: [facility] Work Phone: Start: 01-25-2023 Office outpatient ne w 45 minutes Imad Asaad [facility] Start: 12-19-2022 End: 12-19-2022 ambulatory Rodolfo Ball Other [employer] Other Start: 12-19-2022 Telephone encounter Rodolfo OLSEN [facility] Start: 12-02-2022 End: 12-02-2022 ambulatory Rodolfo Ahmadi Other [employer] Other Start: 12-02-2022 Office outpatient visit 25 minutes Rodolfo Ahmadi [facility] Start: 11-04-2022 End: 11-04-2022 ambulatory Rodolfo Ahmadi Other [employer] Other Start: 11-04-2022 Patient encounter procedure Rodolfo Ahmadi [facility] Start: 10-14-2022 End: 10-14-2022 ambulatory Rodolfo Ahmadi Other [employer] Other Start: 10-14-2022 Telephone encounter Rodolfo Ahmadi [facility] Start: 08-30-2022 End: 08-30-2022 ambulatory Rodolfo Ahmadi Other [employer] Other Start: 08-30-2022 Telephone encounter Rodolfo Ahmadi [facility] Start: 07-15-2022 End: 07-15-2022 ambulatory Rodolfo Galdino Other [employer] Other Start: 07-15-2022 Office outpatient visit 15 minutes Rodolfo Ahmadi [facility] Start: 05-07-2022 End: 05-08-[address] RODOLFO AHMADI Facility:[facility] Start: 01-28-2022 End: 01-29-[address] RODOLFO AHMADI Facility:[facility] Start: 10-26-2019 Adult health examination Imad Asaad Other [employer] Other Start: 04-25-2019 Problem, abnormal examination Imad Asaad Other [employer] Other Start: 04-11-2019 End: 04-18-2019 Evaluation and management of inpatient GEMA MCKEON [facility] Start: 04-11-2019 End: 04-18-2019 Evaluation and management of inpatient Joseph Contreras Work Phone: [address] Onc/Med Surg Comment on above: Acute gallstone panc reatitis (Primary Dx) Procedures Date Procedure Procedure Detail Performing Clinician Start: 09-20-2023 CT of abdomen with contrast DO Rodolfo Ahmadi Work Phone: Start: 03-30-2023 Esophagogastroduodenoscopy DO Rodolfo pereira Work Phone: Start: 02-13-2023 CT of abdomen with contrast DO Rodolfo Ahmadi Work Phone: Start: 02-09-2023 Ultrasound elastography of liver DO Rambo Ahmadi Work Phone: Start: 01-28-[address] RODOLFO AHMADI Comment on above: Performed By: #### PSASC #### [facility] [address] [place] [address] Dr. Poncho Zamarripa Start: 04-18-2019 Glucose blood reagent strip GEMA WRIGHT Start: 04-18-2019 DISCHARGE PATIENT GEMA MIKE Start: 04-18-2019 Gluc bld gluc mntr dev cleared fda spec home use GEMA MCKEON Start: 04-18-2019 Glucose blood reagent strip Vargas Dodson Work Phone: Start: 04-18-2019 INITIATE OXYGEN THERAPY PROTOCOL GEMA MCKEON Start: 04-18-2019 Glucose blood reagent strip GEMA WRIGHT Start: 04-18-2019 Glucose blood reagent strip Vargas Dodson Work Phone: Start: 04-18-2019 Assay of magnesium GEMAKavya MCKEON Start: 04-18-2019 Blood count complete auto&auto difrntl wbc GEMA MIKE Start: 04-18-2019 Renal function panel GEMA MCKEON Start: 04-18-2019 Gluc bld gluc mntr dev cleared fda spec home use GEMA MCKEON Start: 04-18-2019 Assay of magnesium Vargas Dodson Work Phone: Start: 04-18-2019 Blood count complete auto&auto difrntl wbc Vargas Dodson Work Phone: Start: 04-18-2019 Renal function panel Vargas Dodson Work Phone: Start: 04-18-2019 INTAKE AND OUTPUT GEMA WADDELLLINSKI Start: 04-18-2019 Gluc bld gluc mntr dev cleared fda spec home use GEMA MIKE Start: 04-17-2019 Glucose blood reagent strip GEMA CARA WRIGHT Start: 04-17-2019 Glucose blood reagent strip Vargas Boudreauxuger Work Phone: Start: 04-17-2019 Gluc bld gluc mntr dev cleared fda spec home use GEMA MIKE Start: 04-17-2019 DIET GENERAL GEMA MIKE Start: 04-17-2019 Glucose blood reagent strip GEMA CARA WRIGHT Start: 04-17-2019 Glucose blood reagent strip Vargas Perry Hauger Work Phone: Start: 04-17-2019 Level iv surg pathology gross&microscopic exam GEMA MIKE Start: 04-17-2019 Glucose blood reagent strip GEMA CARA WRIGHT Start: 04-17-2019 TRANSFER PATIENT GEMA MIKE Start: 04-17-2019 Level iv surg pathology gross&microscopic exam GEMA MCKEON Start: 04-17-2019 Glucose blood reagent strip Vargas Perry Hauger Work Phone: Start: 04-17-2019 Gluc bld gluc mntr dev cleared fda spec home use GEMA MIKE Start: 04-17-2019 End: 04-17-2019 CHOLECYSTECTOMY LAPAROSCOPIC ROBOTIC Cory Perry Chrismary Work Phone: Start: 04-17-2019 INITIATE OXYGEN THERAPY PROTOCOL GEMA MCKEON Start: 04-17-2019 Glucose blood reagent strip Uliceser Vicky Hauger Work Phone: Start: 04-17-2019 Glucose blood reagent strip Uliceser M Hauger Work Phone: Start: 04-17-2019 Prothrombin time GEMA MCKEON Start: 04-17-2019 Thromboplastin time partial plasma/whole blood GEMA MCKEON Start: 04-17-2019 Gluc bld gluc mntr dev cleared fda spec home use GEMA MCKEON Start: 04-17-2019 Prothrombin time Christkalieer M Hauger Work Phone: Start: 04-17-2019 Thromboplastin time partial plasma/whole blood Vargas Vicky Boudreauxbryan Work Phone: Start: 04-17-2019 INTAKE AND OUTPUT GEMA MCKEON Start: 04-17-2019 Gluc bld gluc mntr dev cleared fda spec home use GEMA MCKEON Start: 04-16-2019 Glucose blood reagent strip GEMA WRIGHT Start: 04-16-2019 Glucose blood reagent strip Vargas Dodson Work Phone: Start: 04-16-2019 Gluc bld gluc mntr dev cleared fda spec home use GEMA MCKEON Start: 04-16-2019 Glucose blood reagent strip GEMA WRIGHT Start: 04-16-2019 Glucose blood reagent strip Vargas Loeraal Work Phone: Start: 04-16-2019 DIETARY NUTRITION SUPPLEMENTS GEMA KIM Start: 04-16-2019 Glucose blood reagent strip GEMA WRIGHT Start: 04-16-2019 Glucose blood reagent strip Isaisarita Vicky Januszbryan Work Phone: Start: 04-16-2019 Gluc bld gluc mntr dev cleared fda spec home use GEMA MCKEON Start: 04-16-2019 INITIATE OXYGEN THERAPY PROTOCOL GEMA MCKEON Start: 04-16-2019 Glucose blood reagent strip GEMA WRIGHT Start: 04-16-2019 Glucose blood reagent strip Vargas Dodson Work Phone: Start: 04-16-2019 Assay of amylase GEMA MCKEON Start: 04-16-2019 Assay of lipase GEMA MCKEON Start: 04-16-2019 Assay of magnesium GEMA MCKEON Start: 04-16-2019 Blood count complete auto&auto difrntl wbc GEMA MCKEON Start: 04-16-2019 Hepatic function panel GEMA MCKEON Start: 04-16-2019 Renal function panel GEMA MCKEON Start: 04-16-2019 Reticulated platelet assay GEMA JONES Start: 04-16-2019 Gluc bld gluc mntr dev cleared fda spec home use GEMA MCKEON Start: 04-16-2019 Assay of amylase Uliceser Vicky Januszbryan Work Phone: Start: 04-16-2019 Assay of lipase Vargas Dodson Work Phone: Start: 04-16-2019 Assay of magnesium Vargas Dodson Work Phone: Start: 04-16-2019 Blood count complete auto&auto difrntl wbc Vargas Dodson Work Phone: Start: 04-16-2019 Hepatic function panel Vargas Dodson Work Phone: Start: 04-16-2019 IMMATURE PLATELET FRACTION Vargas Dodson Work Phone: Start: 04-16-2019 Renal function panel Vargas Dodson Work Phone: Start: 04-16-2019 INTAKE AND OUTPUT GEMA MCKEON Start: 04-16-2019 Gluc bld gluc mntr dev cleared fda spec home use GEMA MCKEON Start: 04-15-2019 Glucose blood reagent strip GEMA WRIGHT Start: 04-15-2019 Gluc bld gluc mntr dev cleared fda spec home use GEMA MCKEON Start: 04-15-2019 Glucose blood reagent strip Vargas Dodson Work Phone: Start: 04-15-2019 Glucose blood reagent strip GEMA WRIGHT Start: 04-15-2019 Glucose blood reagent strip Vargas Dodson Work Phone: Start: 04-15-2019 Gluc bld gluc mntr dev cleared fda spec home use GEMA MCKEON Start: 04-15-2019 Glucose blood reagent strip GEMA WIRGHT Start: 04-15-2019 INITIATE OXYGEN THERAPY PROTOCOL GEMA MCKEON Start: 04-15-2019 Glucose blood reagent strip Vargas Dodson Work Phone: Start: 04-15-2019 Assay of amylase GEMA MCKEON Start: 04-15-2019 Assay of lipase GEMA MCKEON Start: 04-15-2019 Assay of phosphorus inorganic GEMA KIM Start: 04-15-2019 Blood count complete automated GEMA BARBOSA Start: 04-15-2019 Calcium ionized GEMA MCKEON Start: 04-15-2019 Comprehensive metabolic panel GEMA KIM Start: 04-15-2019 Reticulated platelet assay GEMAKavya JONES Start: 04-15-2019 Gluc bld gluc mntr dev cleared fda spec home use GEMAKavya MCKEON Start: 04-15-2019 Assay of amylase Joseph Contreras Work Phone: Start: 04-15-2019 Assay of lipase Joseph Contreras Work Phone: Start: 04-15-2019 Assay of phosphorus inorganic Joseph Contreras Work Phone: Start: 04-15-2019 Blood count complete automated Joseph Contreras Work Phone: Start: 04-15-2019 Calcium ionized Joseph Contreras Work Phone: Start: 04-15-2019 Comprehensive metabolic panel Joseph Contreras Work Phone: Start: 04-15-2019 IMMATURE PLATELET FRACTION Joseph liang Work Phone: Start: 04-15-2019 INTAKE AND OUTPUT GEMA MCKEON Start: 04-15-2019 Gluc bld gluc mntr dev cleared fda spec home use GEMA MCKEON Start: 04-14-2019 Glucose blood reagent strip GEMA WRIGHT Start: 04-14-2019 Gluc bld gluc mntr dev cleared fda spec home use GEMA MCKEON Start: 04-14-2019 Glucose blood reagent strip Joseph S angelic Work Phone: Start: 04-14-2019 Glucose blood reagent strip GEMA WRIGHT Start: 04-14-2019 IP CONSULT TO UNIVERSITY SERVICES PROGRAM ASSOCIATE GEMA KEEN Start: 04-14-2019 Glucose blood reagent strip Joseph S angelic Work Phone: Start: 04-14-2019 Glucose blood reagent strip GEMA WRIGHT Start: 04-14-2019 Glucose blood reagent strip Joseph S angelic Work Phone: Start: 04-14-2019 Ct abdomen & pelvis w/contrast material GEMA MCKEON Start: 04-14-2019 Gluc bld gluc mntr dev cleared fda spec home use GEMA MCKEON Start: 04-14-2019 INITIATE OXYGEN THERAPY PROTOCOL GEMA MIKE Start: 04-14-2019 Ct abdomen & pelvis w/contrast material Anmol Kuhn Work Phone: Start: 04-14-2019 Assay of amylase GEAM WADDELLJUDY Start: 04-14-2019 Assay of lipase GEMA MIKE Start: 04-14-2019 Blood count complete automated GEMA BANUELOSSTEPHENIE Start: 04-14-2019 Calcium ionized GEMA WADDELLJUDY Start: 04-14-2019 Reticulated platelet assay GEMA ATKINSON KAREN Start: 04-14-2019 Assay of amylase Joseph Contreras Work Phone: Start: 04-14-2019 Assay of lipase Joseph Contreras Work Phone: Start: 04-14-2019 Blood count complete automated Joseph Contreras Work Phone: Start: 04-14-2019 Calcium ionized Joseph Contreras Work Phone: Start: 04-14-2019 IMMATURE PLATELET FRACTION Joseph liang Work Phone: Start: 04-14-2019 Gluc bld gluc mntr dev cleared fda spec home use GEMA WADDELLJUDY Start: 04-14-2019 INTAKE AND OUTPUT GEMA WADDELLJUDY Start: 04-14-2019 Gluc bld gluc mntr dev cleared fda spec home use GEMA MIKE Start: 04-13-2019 Glucose blood reagent strip GEMA WRIGHT Start: 04-13-2019 Gluc bld gluc mntr dev cleared fda spec home use GEMA MIKE Start: 04-13-2019 Glucose blood reagent strip Joseph atwood Work Phone: Start: 04-13-2019 Glucose blood reagent strip GEMA WRIGHT Start: 04-13-2019 Glucose blood reagent strip Joseph atwood Work Phone: Start: 04-13-2019 Glucose blood reagent strip GEMA WRIGHT Start: 04-13-2019 Glucose blood reagent strip Vargas Dodson Work Phone: Start: 04-13-2019 INITIATE OXYGEN THERAPY PROTOCOL GEMA MCKEON Start: 04-13-2019 Glucose blood reagent strip Joseph atwood Work Phone: Start: 04-13-2019 Assay of lipase GEMA MIKE Start: 04-13-2019 Calcium ionized GEMA ATKINSONWHITPebbles Start: 04-13-2019 Hepatic function panel GEMA WADDELLJUDY Start: 04-13-2019 Assay of lipase Isam Daboul Work Phone: Start: 04-13-2019 Calcium ionized Isam Daboul Work Phone: Start: 04-13-2019 Hepatic function panel Isam Daboul Work Phone: Start: 04-13-2019 Glucose blood reagent strip GEAM CARA WRIGHT Start: 04-13-2019 Glucose blood reagent strip Joseph atwood Work Phone: Start: 04-13-2019 INTAKE AND OUTPUT GEMA MIKE Start: 04-13-2019 Glucose blood reagent strip GEMA CARA WRIGHT Start: 04-12-2019 Glucose blood reagent strip Joseph atwood Work Phone: Start: 04-12-2019 Glucose blood reagent strip Joseph atwood Work Phone: Start: 04-12-2019 Hemoglobin glycosylated a1c GEMA CARA WRIGHT Start: 04-12-2019 Glucose blood reagent strip GEMA BAIRONYULI ADRIANA Start: 04-12-2019 Hemoglobin glycosylated a1c Joseph atwood Work Phone: Start: 04-12-2019 TRANSFER PATIENT GEMA MIKE Start: 04-12-2019 Glucose blood reagent strip Joseph atwood Work Phone: Start: 04-12-2019 Cmbn ndsc cathj biliary&pncrtc ductal sys rs&i Isam Daboul Work Phone: Start: 04-12-2019 End: 04-12-2019 ERCP SPHINCTER/PAPILLOTOMY Isam Daboul Work Phone: Start: 04-12-2019 End: 04-12-2019 ERCP STONE REMOVAL Isam Daboul Work Phone: Start: 04-12-2019 Glucose blood reagent strip GEMA MARROQUIN KELECHIKI Start: 04-12-2019 Glucose blood reagent strip Joseph atwood Work Phone: Start: 04-12-2019 INITIATE OXYGEN THERAPY PROTOCOL GEMA WADDELLJUDY Start: 04-12-2019 ENDO PROCEDURE GEMA WADDELLJUDY Start: 04-12-2019 Assay of amylase GEMA WADDELLJUDY Start: 04-12-2019 Assay of lipase GEMA WADDELLJUDY Start: 04-12-2019 Assay of magnesium GEMA WADDELLJUDY Start: 04-12-2019 Assay of phosphorus inorganic GEMA CONNOLLYKAREN Start: 04-12-2019 Assay of triglycerides GEMA WADDELLJUDY Start: 04-12-2019 Blood count complete auto&auto difrntl wbc GEMA ATKINSONKAREN Start: 04-12-2019 Blood count complete automated GMEA REJI BARBOSA Start: 04-12-2019 Calcium ionized GEMA ATKINSONKAREN Start: 04-12-2019 Prothrombin time GEMA WADDELLJUDY Start: 04-12-2019 Reticulated platelet assay GEMA WADDELLCATHLEEN JONES Start: 04-12-2019 Assay of amylase Jewel A Cha Work Phone: Start: 04-12-2019 Assay of lipase Jewel A Cha Work Phone: Start: 04-12-2019 Assay of magnesium Chucky Schmitz Work Phone: Start: 04-12-2019 Assay of phosphorus inorganic Chucky echols Work Phone: Start: 04-12-2019 Assay of triglycerides Chucky ramesh Work Phone: Start: 04-12-2019 Blood count complete auto&auto difrntl wbc Chucky Schmitz Work Phone: Start: 04-12-2019 Blood count complete automated Chucky Schmitz Work Phone: Start: 04-12-2019 Calcium ionized Chucky Schmitz Work Phone: Start: 04-12-2019 IMMATURE PLATELET FRACTION Chucky silva Work Phone: Start: 04-12-2019 Prothrombin time Chucky Schmitz Work Phone: Start: 04-12-2019 Glucose blood reagent strip GEMA WADDELLYULI WRIGHT Start: 04-12-2019 Glucose blood reagent strip Joseph atwood Work Phone: Start: 04-12-2019 DAILY WEIGHTS GEMA WADDELLJUDY Start: 04-12-2019 INTAKE AND OUTPUT GEMA WADDELLJUDY Start: 04-11-2019 Glucose blood reagent strip GEMA CARA WRIGHT Start: 04-11-2019 Mri abdomen w/o & w/contrast material GEMA WADDELLJUDY Start: 04-11-2019 Glucose blood reagent strip Joseph atwood Work Phone: Start: 04-11-2019 Assay of lipase GEMA MCKEON Start: 04-11-2019 Blood count complete auto&auto difrntl wbc GEMA MCKEON Start: 04-11-2019 Mri abdomen w/o & w/contrast material Nathaniel Eubanks Work Phone: Start: 04-11-2019 INITIATE OXYGEN THERAPY PROTOCOL GEMA MCKEON Start: 04-11-2019 INTAKE AND OUTPUT GEMA WADDELLJUDY Start: 04-11-2019 IP CONSULT TO GENERAL SURGERY GEMA KIM Start: 04-11-2019 IP CONSULT TO GI GEMA MCKEON Start: 04-11-2019 NOTIFY PHYSICIAN (SPECIFY) GEMA JONES Start: 04-11-2019 OT EVAL AND TREAT GEMA MCKEON Start: 04-11-2019 PLACE INTERMITTENT PNEUMATIC COMPRESSION DEVICE GEAM MCKEON Start: 04-11-2019 PT EVAL AND TREAT GEMA MCKEON Start: 04-11-2019 PULSE OXIMETRY SPOT CHECK GEMA CASAS Start: 04-11-2019 FULL CODE GEMA MCKEON Start: 04-11-2019 VITAL SIGNS GEMA MCKEON Start: 04-11-2019 Assay of lipase Hasdeanna Shaclark Work Phone: Start: 04-11-2019 Blood count complete auto&auto difrntl wbc Hasan Shafiq Work Phone: Start: 04-11-2019 PULSE OXIMETRY SPOT CHECK Iskassi Reji Work Phone: Start: 04-11-2019 PATIENT STATUS (DIRECT) GEMA MCKEON Start: 10-03-2016 Hyperlipidemia screening Imad Asaad Other Start: 10-03-2016 Screening for malignant neoplasm of prostate Imad Asaad Other Depression screening Imad As aad Other End: 03-12-2021 Laboratory test result abnormal Imad Asa ad Other Screening for malign ant neoplasm of prostate Imad Asaad Other Plan of Treatment Date Care Activity Detail Author Start: 03-30-2023 [facility] Start: 02-09-2023 [facility] Start: 01-25-2023 Hepatitis A virus antibody, IgM type [facility] Start: 01-25-2023 Hepatitis B core ant ibody measurement [facility] Start: 01-25-2023 Hepatitis B core ant ibody measurement, IgM type [facility] Start: 01-25-2023 [facility] Start: 04-18-2020 Creatinine monitoring Creatinine mon itoring [place], [place] Start: 04-18-2020 Potassium monitoring Potassium monit oring [place], [place] Start: 04-12-2020 A1C test (Diabetic o r Prediabetic) A1C test (Diabetic or Prediabetic) [place], [place] Start: 2018 Pneumococcal 65+ yea rs Vaccine (1 of 2 - PCV13) Pneumococcal 65+ years Vaccine (1 of 2 - PCV13) [place] Start: 12-14-2003 Colon cancer screen colonoscopy Colon cancer screen colonoscopy [place], [place] Start: 12-14-2003 Shingles Vaccine (1 of 2) Shingles V accine (1 of 2) [place], [place] Start: 1972 DTaP/Tdap/Td vaccine (1 - Tdap) DTaP/Tdap/Td vaccine (1 - Tdap) [place], [place] Start: 12-14-1971 Diabetic microalbumi dilma test Diabetic microalbuminuria test [place], [place] Start: 1968 HIV screen HIV screen [place], [place] Start: 12-14-1963 [object Object] Diabetic foot exam [place], [place] Start: 12-14-1963 Diabetic retinal exam Diabetic retin al exam [place], [place] Start: 12-14-1963 Lipid screen Lipid screen [place], [place] Start: 1953 Hepatitis C screen Hepatitis C scree n [place], [place] Actin smooth muscle IgG Ab [Units/volume] in Serum [facility] Alpha 1 antitrypsin [Mass/volume] in Serum or Plasma [facility] Alpha 1 antitrypsin phenotyping [Identifier] in Serum or Plasma by Immunofixation [facility] [id number]. tumor marker [Mass/volume] in Serum or Plasma [facility] CBC Auto Differential CBC Auto D ifferential Lab Routine Tomorrow AM until discontinued starting 04/18/2019, 1 completed [place], [place] Comment on above: Tomorrow AM until di scontinued starting 04/18/2019, 1 completed Ceruloplasmin [Mass/volume] in Serum or Plasma [facility] Comprehensive metabo lic 2000 panel - Serum or Plasma [facility] Hepatitis A virus Ab [Presence] in Serum by Immunoassay [facility] Hepatitis B virus boswell rface Ab [Presence] in Serum [facility] Hepatitis B virus boswell rface Ag [Presence] in Serum or Plasma by Immunoassay [facility] Hepatitis C virus Ig G Ab [Presence] in Serum or Plasma by Immunoassay [facility] HFE gene mutations f ound [Identifier] in Blood or Tissue by Molecular genetics method Nominal [facility] HHN Treatment HHN Treatment Re spiratory Care Routine Every 6hr As Needed until discontinued starting 04/12/2019 [place], [place] Comment on above: Every 6hr As Needed until discontinued starting 04/12/2019 Homogenous nuclear A b pattern [Titer] in Serum [facility] IgA [Mass/volume] in Serum or Plasma [facility] IgG [Mass/volume] in Serum or Plasma [facility] IgM [Mass/volume] in Serum or Plasma [facility] Initiate Oxygen Ther apy Protocol Initiate Oxygen Therapy Protocol Respiratory Care Routine Daily until discontinued starting 04/11/2019 [place], [place] Comment on above: Daily until disconti nued starting 04/11/2019 Lipoprotein a [Moles/volume] in Serum or Plasma [facility] Microalbumin [Mass/volume] in Urine [facility] Mitochondria M2 IgG Ab [Units/volume] in Serum [facility] Nuclear Ab [Titer] i n Serum [facility] POCT glucose [facility] [place], [place] Comment on above: 4X Daily (AC & HS) u ntil discontinued starting 04/13/2019 As Needed until disc ontinued starting 04/15/2019 Surgical Pathology Surgical Path ology Lab Routine ONE TIME for 1 Occurrences starting 04/17/2019 [facility], [place] Comment on above: ONE TIME for 1 Occur rences starting 04/17/2019 End: 04-17-2019 Surgical Pathology Surgical Pathology Lab Routine Once for 1 Occurrences starting 04/17/2019 until 04/17/2019 [place], [place] Comment on above: Once for 1 Occurrenc es starting 04/17/2019 until 04/17/2019 [facility] Immunizations Immunization Date Immunization Notes Care Provider Edward miller 05-26-2023 influenza virus vaccine, unspecified formulation DO Rodolfo [employer] Work Phone: [facility] 05-26-2023 influenza, high dose seasonal, preservative-free Rodolfo Ahmadi Other [employer] Other 06-24-2021 COVID-19 Vaccine Moderna - Documentation Purposes Only Rodolfo Ahmadi Other [facility] 09-12-2020 COVID-19 Vaccine Moderna - Documentation Purposes Only Rodolfo Ahmadi Other [facility] 06-19-2020 influenza virus vaccine, split virus (incl. purified surface antigen) Imad Asaad Other [employer] Other 06-19-2020 influenza virus vaccine, unspecified formulation DO Rodolfo [employer] Work Phone: [facility] 04-13-2019 influenza, injectabl e, quadrivalent, preservative free Joseph Contreras [facility], [place] 04-12-2019 influenza quadrivale nt split vaccine (FLUZONE;FLUARIX;FLULAV AL;AFLURIA) injection 0.5 mL [place], [place] Payers Date Payer Category Payer Self-pay 2019 Unknown [employer] xxxxxxxxx 2019-Present [address] [place] [address] xxxxxxxxx [id number] 2019 Unknown [id number] 2018 Medicare MEDICARE MEDICAR E PART A AND B xxxxxxxxxxx 2018-Present [phone] [address] [address] [place] [address] xxxxxxxxxxx [id number] 2018 Medicare [id number] 1959 Unknown [id number] 1953 Unknown [id number] 1953 Unknown [id number] 1953 Unknown [id number] Unknown [id number] Unknown [id number] Unknown [id number] Unknown [id number] Unknown [id number] Unknown [id number] Social History Date Type Detail Facility Start: 04-18-2019 Tobacco smoking stat [facility] Former smoker [facility]: [facility] History of tobacco use [facility] History of tobacco use Cigarette Smoker [facility] JESSICA Start: 04-18-2019 Alcohol intake Yes Arielle [facility] JESSICA Sex Assigned At Not on file [facility] JESSICA Start: 1955 Sex Assigned At Male [facility] Start: 03-30-2023 End: 03-30-2023 Tobacco smoking status NHIS Never smoked tobacco (finding) [facility] Medical Equipment Procedure Code Equipment Code Equipment Origin al Text Equipment Identifier Dates Blood Sugar Diagnostic (Blood Glucose Test) strip Start: 08-31-2023 Blood Sugar Diagnostic (Blood Glucose Test) strip Start: 08-31-2023 Blood Sugar Diagnostic (Blood Glucose Test) strip Start: 08-31-2023 Blood Sugar Diagnostic (Blood Glucose Test) strip Start: 08-31-2023 Blood Sugar Diagnostic (Blood Glucose Test) strip Start: 08-31-2023 Goals Date Patient Goal Desired Activity /State Clinical Notes 07-15-2022 to 09-21-2023 Note Date & Type Note Facility 09-21-2023 Evaluation note Authored September 21, 2023 9:51am 67-year-old man with 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 Patient was counseled about weight loss Mediterranean diet and exercise. Laboratory work-up for infectious autoimmune or metabolic etiologies of liver diseases were unremarkable. FibroScan showed LSM 17.8 suggestive of liver cirrhosis. Fib-4 is 3.77 which is consistent with advanced fibrosis. CT in 01/2023 showed mild lobular liver contour consistent with cirrhosis. No liver masses. AFP is 14.1. CT on 09/20/2023 showed no liver lesion. Will arrange for ultrasound and AFP every 6 months Patient has splenomegaly and thrombocytopenia consistent with portal hypertension. EGD on 03/30/2023 showed no varices MELD is 8. Continue to monitor MELD labs He has immunity for hepatitis A. Needs hepatitis B vaccine. [facility] Work Phone: [phone]) 120-410401-09-2024 Evaluation note* Encounter Date Diagnosis Assessment Notes Treatment Notes Treatment Clinical Notes Jul, Type 2 diabetes mellitus with hyperglycemia, without long-term current use of insulin (ICD-10 - E11.65) This patient is following a comprehensive diabetic treatment plan. They are checking their feet daily for calluses and nonhealing ulcers. They are being seen for yearly dilated eye examinations. Goals: SBP less than 130, LDL less than 100, FBS less than 140, A1C less than 7%. They are checking their BS daily, will which are reviewed at the office visit. Continue regular routine monitoring of A1C,] Microalbumin, Dilated eye exam and Foot exam Jul, Primary hypertension (ICD-10 - I10) This patient is instructed to consume a healthy, low-fat, low-salt diet. They are also encouraged to continue exercise to achieve/maintain a normal BMI. Jul, XIE (nonalcoholic steatohepatitis) (ICD-10 - K75.81) Low fat diet, exercise and weight loss. Avoid alcohol, Tylenol and NSAIDs. f/u GI clinic q 6mo. Jul, Unspecified cirrhosi s of liver (ICD-10 - K74.60) EGD w/o varices. Avoid alcohol, Tylenol and NSAIDs. Healthy, low fat, high protein diet. Keep active. f/u GI clinic q 6mo w/ RUQ US to r/o HCC Jul, Primary osteoarthritis of both knees (ICD-10 - M17.0) Severe OA B/L knees. Received no benefit from cortisone injection. Discussed Synvisc and Geniculate block. Discussed TKA While he c/o lower extremity pain, he locates in the hamstring and calf areas more than periarticular area. ROM exercises, ice/heat and rest. Jul, Primary osteoarthritis of both first carpometacarpal joints (ICD-10 - M18.0) Ice, heat and Voltaren Gel. DIscussed injections. Refer to Rheumatology for evaluation Jul, Inflammatory polyarthritis (ICD-10 - M06.4) Mild swelling, stiffness and tenderness over 2nd-4th MCP joints and 1st CMC joints. Ice, Voltaren Gel and warm soaks. Refer to Rheumatology for evaluation. ESR minimally elevated. RA, ANATOLIY negative. Jul, Elevated cholesterol (ICD-10 - E78.00) Instructed on diet and exercise with continued statin therapy.Discussed the beneficial effects of lowering cholesterol in reducing the risk for cerebrovascular and cardiovascular disease. [employer] Other 11-24-2023 Evaluation note* Encounter Date Diagnosis Assessment Notes Treatment Notes Treatment Clinical Notes May, Type 2 diabetes mellitus with hyperglycemia, without long-term current use of insulin (ICD-10 - E11.65) This patient is following a comprehensive diabetic treatment plan. They are checking their feet daily for calluses and nonhealing ulcers. They are being seen for yearly dilated eye examinations. Goals: SBP less than 130, LDL less than 100, FBS less than 140, A1C less than 7%. They are checking their BS daily, will which are reviewed at the office visit. Continue regular routine monitoring of A1C,] Microalbumin, Dilated eye exam and Foot exam May, Primary hypertension (ICD-10 - I10) This patient is instructed to consume a healthy, low-fat, low-salt diet. They are also encouraged to continue exercise to achieve/maintain a normal BMI. May, XIE (nonalcoholic steatohepatitis) (ICD-10 - K75.81) Low fat, high protein diet. Exercise and weight loss. Avoid NSAIDs, Tylenol and Alcohol. f/u GI May, Unspecified cirrhosi s of liver (ICD-10 - K74.60) Secondary to alcohol, XIE. May, Inflammatory polyarthritis (ICD-10 - M06.4) Check labs w/ next flare of symptoms Consider referral to Rheumatology for evaluation. May, Primary osteoarthritis of both knees (ICD-10 - M17.0) Quad exercises, ice/heat and weight loss. IA Injections w/ minimal benefit. Consider NSAIDs for few days w/ acute flares Consider referral to pain management for genicular block May, Primary osteoarthritis of both first carpometacarpal joints (ICD-10 - M18.0) VOltaren Gel 2-4x daily. Check inflammatory markers Referral to Rheumatology May, Elevated cholesterol (ICD-10 - E78.00) Instructed on diet and exercise with continued statin therapy.Discussed the beneficial effects of lowering cholesterol in reducing the risk for cerebrovascular and cardiovascular disease. [employer] Other 09-28-2023 [facility]* Encounter Date Diagnosis Assessment Notes Treatment Notes Treatment Clinical Notes Mar, Elevated liver enzym es (ICD-10 - R74.8) Mar, NAFLD (nonalcoholic fatty liver disease) (ICD-10 - K76.0) Mar, Cirrhosis of liver without ascites, unspecified hepatic cirrhosis type (ICD-10 - K74.60) Mar, Portal hypertension (ICD-10 - K76.6) Mar, Thrombocytopenia (ICD-10 - D69.6) Mar, Splenomegaly (ICD-10 - R16.1) Mar, Metabolic syndrome (ICD-10 - E88.81) [employer] Other 08-23-2023 Evaluation note* Encounter Date Diagnosis Assessment Notes Treatment Notes Treatment Clinical Notes Jan, Primary hypertension (ICD-10 - I10) This patient is instructed to consume a healthy, low-fat, low-salt diet. They are also encouraged to continue exercise to achieve/maintain a normal BMI. Jan, Type 2 diabetes mellitus with hyperglycemia, without long-term current use of insulin (ICD-10 - E11.65) This patient is following a comprehensive diabetic treatment plan. They are checking their feet daily for calluses and nonhealing ulcers. They are being seen for yearly dilated eye examinations. Goals: SBP less than 130, LDL less than 100, FBS less than 140, AC and A1C less than 7%. They are checking their BS daily, will which are reviewed at the office visit. Continue regular routine monitoring of A1C,] Microalbumin, Dilated eye exam and Foot exam Jan, XIE (nonalcoholic steatohepatitis) (ICD-10 - K75.81) Avoid Alcohol and Tylenol. Hydrate and consume low salt, high protein diet. RUQ US every 6 mo. Weight loss Jan, Unspecified cirrhosi s of liver (ICD-10 - K74.60) No obvious complications at this time. No bleeding, obvious ascites. Monitor closely w/ GI Jan, Primary osteoarthritis of both knees (ICD-10 - M17.0) Quad exercises, ice/heat and bracing. Avoid squatting and kneeling Weight loss encouraged Refer to Orthopedics for injections Pain management? Jan, Primary osteoarthritis of both first carpometacarpal joints (ICD-10 - M18.0) Jan, Elevated cholesterol (ICD-10 - E78.00) Instructed on diet and exercise with continued statin therapy.Discussed the beneficial effects of lowering cholesterol in reducing the risk for cerebrovascular and cardiovascular disease. Jan, Adenomatous polyp of sigmoid colon (ICD-10 - D12.5) Awaiting path report. Repeat scope in 3-5 years. High fiber diet Jan, External hemorrhoid (ICD-10 - K64.4) [employer] Other 07-31-2023 Evaluation note* Encounter Date Diagnosis Assessment Notes Treatment Notes Treatment Clinical Notes Dec, XIE (nonalcoholic steatohepatitis) (ICD-10 - K75.81) Dec, Elevated liver enzymes (ICD-10 - R74.8) [employer] Other 07-26-2023 Evaluation note* Encounter Date Diagnosis Assessment Notes Treatment Notes Treatment Clinical Notes Dec, Nonalcoholic steatohepatitis (XIE) (ICD-10 - K75.81) Dec, Elevated liver enzym es (ICD-10 - R74.8) Return visit when these are completed. [employer] Other 06-02-2023 Evaluation note* Encounter Date Diagnosis Assessment Notes Treatment Notes Treatment Clinical Notes Dec, Controlled type 2 diabetes mellitus with hyperglycemia, without long-term current use of insulin (ICD-10 - E11.65) This patient is following a comprehensive diabetic treatment plan. They are checking their feet daily for calluses and nonhealing ulcers. They are being seen for yearly dilated eye examinations. Goals: SBP less than 130, LDL less than 100, FBS less than 140, AC and A1C less than 7%. They are checking their BS daily, will which are reviewed at the office visit. Continue regular routine monitoring of A1C,] Microalbumin, Dilated eye exam and Foot exam Will need to replace DPP4 due to cost - consider Actos Dec, Nonalcoholic steatohepatitis (XIE) (ICD-10 - K75.81) Healthy, low fat, high protein diet. Exercise and 10% weight loss. Avoid alcohol Refer to GI for fibroscan Dec, Unspecified cirrhosi s of liver (ICD-10 - K74.60) Referral to GI for further testing. Dec, Essential hypertension (ICD-10 - I10) This patient is instructed to consume a healthy, low-fat, low-salt diet. They are also encouraged to continue exercise to achieve/maintain a normal BMI. Dec, Elevated cholesterol (ICD-10 - E78.00) Instructed on diet and exercise with continued statin therapy.Discussed the beneficial effects of lowering cholesterol in reducing the risk for cerebrovascular and cardiovascular disease. 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 Mobic as needed. Healthy diet, exercise and weight loss Dec, Myalgia, multiple sites (ICD-10 - M79.18) Stretching exercises, avoid strenuous activity, weight loss Dec, Morbid (severe) obesity due to excess calories (ICD-10 - E66.01) This patient has been instructed on a low-fat, high-fiber diet. They are instructed to reduce calories, portion sizes and snacks. It is recommended that they exercise for 30 minutes, 3-5 times weekly. Dec, Body mass index [BMI ] 36.0-36.9, adult (ICD-10 - Z68.36) [employer] Other 05-05-2023 Evaluation note* Encounter Date Diagnosis Assessment Notes Treatment Notes Treatment Clinical Notes October, Medicare annual wellness visit, subsequent (ICD-10 - Z00.00) Personalized health advice was given to the beneficiary including a written plan for screenings discussed and provided. Advanced care planning reviewed and/or information given as requested. Additional counseling was provided here today in regards to, [ ]. The above visit was performed by [ ], under direct supervision of [ ]. Document reviewed and amended by provider signed below. Healthy diet and exercise. Reviewed age-appropriate preventive testing recommended. October, Essential hypertension (ICD-10 - I10) This patient is instructed to consume a healthy, low-fat, low-salt diet. They are also encouraged to continue exercise to achieve/maintain a normal BMI. October, Controlled type 2 diabetes mellitus with hyperglycemia, without long-term current use of insulin (ICD-10 - E11.65) This patient is following a comprehensive diabetic treatment plan. They are checking their feet daily for calluses and nonhealing ulcers. They are being seen for yearly dilated eye examinations. Goals: SBP less than 130, LDL less than 100, FBS less than 140, AC and A1C less than 7%. They are checking their BS daily, will which are reviewed at the office visit. A1C: [ ] Microalbumin: [ ] Eye exam: [ ] Foot exam: [ ] October, Elevated cholesterol (ICD-10 - E78.00) Instructed on diet and exercise with continued statin therapy.Discussed the beneficial effects of lowering cholesterol in reducing the risk for cerebrovascular and cardiovascular disease. October, Morbid (severe) obesity due to excess calories (ICD-10 - E66.01) This patient has been instructed on a low-fat, high-fiber diet. They are instructed to reduce calories, portion sizes and snacks. It is recommended that they exercise for 30 minutes, 3-5 times weekly. October, Rectal bleeding (ICD-10 - K62.5) October, Body mass index [BMI] 36.0-36.9, adult (ICD-10 - Z68.36) October, Screening PSA (prostate specific antigen) (ICD-10 - Z12.5) October, High risk medication use (ICD-10 - Z79.899) October, Screening for colon cancer (ICD-10 - Z12.11) [employer] Other 02-28-2023 Evaluation note* Encounter Date Diagnosis Assessment Notes Treatment Notes Treatment Clinical Notes Aug, Controlled type 2 diabetes mellitus with hyperglycemia, without long-term current use of insulin (ICD-10 - E11.65) [employer] Other 01-13-2023 Evaluation note* Encounter Date Diagnosis Assessment Notes Treatment Notes Treatment Clinical Notes Jul, Acute bronchitis due to other specified organisms (ICD-10 - J20.8) Instructed to use Robitussin or Mucinex for cough, saline or Flonase NS for congestion, Tylenol for pain and fever. Jul, Essential hypertension (ICD-10 - I10) This patient is instructed to consume a healthy, low-fat, low-salt diet. They are also encouraged to continue exercise to achieve/maintain a normal BMI. 13 Jul, 2022 Type 2 diabetes mellitus with hyperglycemia, without long-term current use of insulin (ICD-10 - E11.65) This patient is following a comprehensive diabetic treatment plan. They are checking their feet daily for calluses and nonhealing ulcers. They are being seen for yearly dilated eye examinations. Goals: SBP less than 130, LDL less than 100, FBS less than 140, AC and A1C less than 7%. They are checking their BS daily, will which are reviewed at the office visit. [place] [employer] Other Evaluation noteNo Information[facility]St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 Patient was counseled about weight loss Mediterranean diet and exercise. Laboratory work-up for infectious autoimmune or metabolic etiologies of liver diseases were unremarkable. FibroScan showed LSM 17.8 suggestive of liver cirrhosis. Fib-4 is 3.77 which is consistent with advanced fibrosis. CT in 01/2023 showed mild lobular liver contour consistent with cirrhosis. No liver masses. AFP is 14.1. CT on 09/20/2023 showed no liver lesion. Will arrange for ultrasound and AFP every 6 months Patient has splenomegaly and thrombocytopenia consistent with portal hypertension. EGD on 03/30/2023 showed no varices MELD is 8. Continue to monitor MELD labs He has immunity for hepatitis A. Needs hepatitis B vaccine. [facility] Work Phone: Evaluation note* Diagnosis Onset Date Resolution Status Chronic venous insufficiency acute Cirrhosis of liver without ascites acute Essential hypertension acute Hypertension acute Metabolic dysfunction-associ ated steatohepatitis (MASH) acute Primary osteoarthritis of knees, bilateral acute Thrombocytopenia acute Type 2 diabetes mellitus with hyperglycemia acute Medicare annual wellness visit, subsequent noneactive Screening PSA (prostate specific antigen) noneactive [facility] Work Phone: History general Narrative - Reported* Type Description Date Medical History Controlled type 2 di abetes mellitus with hyperglycemia, without long-term current use of insulin Medical History Elevated transaminase level Medical History Screening PSA (prostate specific antigen) Medical History Nicotine dependence, cigarettes, in remission Medical History Mild obesity Medical History Right carotid bruit Medical History Chronic venous insufficiency Medical History Hyperlipidemia type II Medical History Nonalcoholic fatty liver disease Medical History Essential hypertension Medical History Abrasion of right lower extremit y, initial encounter Medical History Unspecified osteoarthritis, unsp ecified site Medical History Cramps, muscle, general Medical History Acute seasonal allergic rhinitis due to pollen Medical History Chronic viral hepatitis, unspeci fied Medical History Chronic bronchitis, simple Medical History Gallstone pancreatitis Medical History Gastro-esophageal re flux disease with esophagitis, without bleeding Surgical History Cholecystectomy 04/17/19 Surgical History ERCP with calculus removal 04/02 07/21 Surgical History screening colonscopy 06/2014 Surgical History Left knee arthroscopy 04/29/22 Hospitalization History see surgical history [employer] Other History general Narrative - Reported* Type Description Date Medical History Controlled type 2 di abetes mellitus with hyperglycemia, without long-term current use of insulin Medical History Elevated transaminase level Medical History Screening PSA (prostate specific antigen) Medical History Nicotine dependence, cigarettes, in remission Medical History Mild obesity Medical History Right carotid bruit Medical History Chronic venous insufficiency Medical History Hyperlipidemia type II Medical History Nonalcoholic fatty liver disease Medical History Essential hypertension Medical History Abrasion of right lower extremit y, initial encounter Medical History Unspecified osteoarthritis, unsp ecified site Medical History Cramps, muscle, general Medical History Acute seasonal allergic rhinitis due to pollen Medical History Chronic viral hepatitis, unspeci fied Medical History Chronic bronchitis, simple Medical History Gallstone pancreatitis Medical History Gastro-esophageal re flux disease with esophagitis, without bleeding Surgical History Cholecystectomy 04/17/19 Surgical History ERCP with calculus removal 04/02 07/21 Surgical History screening colonscopy 06/2014 Surgical History Left knee arthroscopy 04/29/22 Surgical History Colonoscopy w/ polypectomy 02/19 23` Hospitalization History see surgical history [employer] Other [employer] general Narrative - Reported* Type Description Date Medical History Controlled type 2 di abetes mellitus with hyperglycemia, without long-term current use of insulin Medical History Elevated transaminase level Medical History Screening PSA (prostate specific antigen) Medical History Nicotine dependence, cigarettes, in remission Medical History Mild obesity Medical History Right carotid bruit Medical History Chronic venous insufficiency Medical History Hyperlipidemia type II Medical History Nonalcoholic fatty liver disease Medical History Essential hypertension Medical History Abrasion of right lower extremit y, initial encounter Medical History Unspecified osteoarthritis, unsp ecified site Medical History Cramps, muscle, general Medical History Acute seasonal allergic rhinitis due to pollen Medical History Chronic viral hepatitis, unspeci fied Medical History Chronic bronchitis, simple Medical History Gallstone pancreatitis Medical History Gastro-esophageal re flux disease with esophagitis, without bleeding Surgical History Cholecystectomy 04/17/19 Surgical History ERCP with calculus removal 04/02 07/21 Surgical History screening colonscopy 06/2014 Surgical History Left knee arthroscopy 04/29/22 Surgical History Colonoscopy w/ polypectomy, rep eat 3 years 01/2023` Hospitalization History see surgical history [employer] Other history general Narrative - Reported* Type Description Date Medical History Controlled type 2 di abetes mellitus with hyperglycemia, without long-term current use of insulin Medical History Elevated transaminase level Medical History Screening PSA (prostate specific antigen) Medical History Nicotine dependence, cigarettes, in remission Medical History Mild obesity Medical History Right carotid bruit Medical History Chronic venous insufficiency Medical History Hyperlipidemia type II Medical History Nonalcoholic fatty liver disease Medical History Essential hypertension Medical History Abrasion of right lower extremit y, initial encounter Medical History Unspecified osteoarthritis, unsp ecified site Medical History Cramps, muscle, general Medical History Acute seasonal allergic rhinitis due to pollen Medical History Chronic viral hepatitis, unspeci fied Medical History Chronic bronchitis, simple Medical History Gallstone pancreatitis Medical History Gastro-esophageal re flux disease with esophagitis, without bleeding Surgical History Cholecystectomy 04/17/19 Surgical History ERCP with calculus removal 04/02 07/21 Surgical History screening colonscopy 06/2014 Surgical History Left knee arthroscopy 04/29/22 Surgical History Colonoscopy w/ polypectomy, rep eat 3 years 01/2023` Surgical History EGD 03/2023 Hospitalization History see surgical history [employer] Other Hospital Discharge instructions Additional Instructions DISCHARGE INSTRUCTIONS FOR ENDOSCOPY FOR POLLACK/EGD/ERCP/PEG: -Your throat may feel sore today from the scope that the doctor passed through your throat to visualize your stomach. Take a throat lozenge or suck on ice to ease the discomfort. -Do NOT smoke. -You may notice some streaks of blood in your sputum if the doctor has taken a biopsy. Notify the doctor if you cough up large amounts of blood. -Expect a gassy or full feeling after esophagoscopy. Report any persistent pain or vomiting. -Take it easy today. You need not stay in bed, but avoid strenuous activities such as jogging. FOR SEDATION FOR 24 HOURS: -NO driving -Do NOT operate machinery such as power tools, lawn mowers, snow blowers, sewing machines, etc. -Avoid alcoholic beverages and drugs for allergies, nerves, or sleep. -Do NOT stay alone. Do NOT leave your child unattended. -Do NOT make important personal or business decisions or sign any legal documents. -Eat solid foods and drink liquids in smaller amounts than usual until normal appetite returns. If you should experience an upset stomach, liquids high in sugar content (soda, Alon-aid, non-acid juices) are recommended. -You can resume normal activities tomorrow. FOLLOW UP Please call the office and make a follow up appointment to see Dr. Stearns at a time to be arranged. -Notify the doctor if you have any problems. -Office number [phone] [facility] Work Phone: Reason for referral (narrative)* Reason Referral for colonos copy Diagnosis 1 Rectal bleeding (K62 .5) Diagnosis 2 External hemorrhoid (K64.4) Diagnosis 3 Screening for colon cancer (Z12.11) Referral Organization [facility] Galdino ambrose Referring Provider First Name Rodolfo Referring Provider Last Name Galdino Referring Provider Specialty Internal Me dicine Referred Organization [facility] Referred Provider Yordan Shaffer Referred Address [address] [place] [phone] Referred Provider Specialty Surgery Referral Priority Routine General Notes Paty is being refer red for a colonoscopy. He has recently noticed bright red blood with wiping. He denies bloody diarrhea, tenesmus, weight loss, change in appetite or bowel habits. He has a hx of external hemorrhoids but nothing to explain his bleeding on examination during his office visit. His last colonoscopy was in 2013 and was normal. Clinical Notes Labs were to be done prior to his referral. [employer] Other Reason for referral (narrative)* Reason Referral for evaluat ion of diffuse arthralgias and myalgias Diagnosis 1 Inflammatory polyart hritis (M06.4) Diagnosis 2 Primary osteoarthrit is of both knees (M17.0) Diagnosis 3 Primary osteoarthrit is of both first carpometacarpal joints (M18.0) Referral Organization [facility] Caitlin ambrose Referring Provider First Name Rodolfo Referring Provider Last Name Galdino Referring Provider Specialty Internal Me dicmarco Referred Organization [facility] Referred Address [address] [facility] [place],[address] Referred Provider Specialty Rheumatology Referral Priority Routine General Notes Mr. Cardona has ge neralized aching and stiffness of multiple joints. He experiences episodes of severe pain, typically preceded by change in activity. In the past year, these episodes have become more frequent and prolonged. He denies swelling, erythema or warmth. He has some swelling in the B/L MCP joints. Pain involves shoulders, hips, knees and hands. He also c/o aching and stiffness in the hamstring and calf muscle groups. His ESR is minimally elevated w/ a normal ANATOLIY and RA. Clinical Notes Include recent labs [employer] Other Discharge Instructions * Discharge Instr - Activity* Vargas Dodson DO - 04/18/2019 10:50 AM EDT - Home activity as tolerated * Discharge Instr - Diet* Vargas Dodson DO - 04/18/2019 10:50 AM EDT ? Good nutrition is important when healing from an illness, injury, or surgery. Follow any nutrition recommendations given to you during your hospital stay. ? If you were given an oral nutrition supplement while in the hospital, continue to take this supplement at home. You can take it with meals, in-between meals, and/or before bedtime. These supplements can be purchased at most local grocery stores, pharmacies, and chain super-stores. ? If you have any questions about your diet or nutrition, call the hospital and ask for the dietitian. - Low sodium, heart healthy diet * Additional Instructions* Anmol Kuhn Jr., DO - 04/17/2019 Patient Discharge Instructions Discharge Date: 04/17/2019 HYGEINE: Ok to shower, no soaking in a tub/pool until seen at your follow up appointment. Clean incision daily with gentle soap and water, do not use alcohol/peroxide or any harsh cleansers. DRIVING: No driving while taking narcotic medications or while in pain ACTIVITY: No lifting greater than 10lbs for 6 weeks or any strenuous activity. DIET: Resume your normal diet as advised by your PCP. MEDICATIONS: Take all medications as prescribed. SPECIAL INSTRUCTIONS: Follow up with Dr. Orellana in 7-10 days, call the clinic for appointment. Call sooner if fever above 100.4 degrees Farenheit, increase in swelling or redness, thick purulent discharge or pain not controlled with medications. * Attachments The following attachments cannot be sent through Care Everywhere. * Blood Pressure Test: Home ([facility]) * Cholecystectomy: Post-op ([facility]) * Diet: DASH ([facility]) * Gallbladder Disease: Low-Fat Diet (Libyan) * Gallstones (Libyan) * Pancreatitis: Acute: General Info (Libyan) * pantoprazole (oral/injection) (Libyan) documented in this encounter History of Present Illness * Leslie Nichole RN - 04/18/2019 2:13 PM EDT Discharge order received. IV removed. Raised Printer went over d/c instructions with pt, including medications and follow up appointments. Pt sent home with and instructed to continue using hibiclens. Pt verbalized understanding. Pt was d/c with all documented belongings. * Ana White - 04/18/2019 1:56 PM EDT CLINICAL PHARMACY NOTE: MEDS TO [facility] Select Patient?: No Total # of Prescriptions Filled: 1 The following medications were delivered to the patient: Percocet 5-325mg Total # of Interventions Completed: 0 Time Spent (min): 5 Additional Documentation: meds delivered to patients at 1:51pm. Patient was in the shower. * Vargas Dodson DO - 04/18/2019 10:49 AM EDT [facility] IN-PATIENT SERVICE [facility] Progress Note 04/18/2019 10:49 AM Name: Paty Cradona Acct: [id number] Room: [address] [place] [address] IP Day: 7 Admit Date: 04/11/2019 4:05 PM PCP: Rodolfo Ahmadi DO Code Status: Full Code Subjective: C/C: unrelenting abdominal pain/epigastric pain Interval History Status: improved. Pt seen and examined this afternoon. He is postop day #1 from robotic lap eric with general surgery today. He is feeling well this morning. No acute events overnight. He is tolerating a diet. Pain is minimal, but present. Wearing O2 this morning as well. Denies O2 use at home. Reports no nausea orvomiting. No chest pain or shortness of breath. Brief History: Mr. Paty Cardona is a pleasant 63 year old gentleman with a history of borderline diabetes, HTN, alcohol use, known gallstones, and seasonal allergies who presented to an outside ED with abdominal pain. He notes that he has had two previous episodes of acute pancreatitis in the past. He began e xperiencing abdominal pain after eating spicy wings [employer]. However, the abdominal pain did not cease after taking the jose seltzer. He presented to the ED for further workup. In the ED, lipase elevatedat 1,552. MRI of the abdomen revealed acute interstitial edematous pancreatitis and cholelithiasis with two adjacent filling defects in the distal/terminal CBD suggesting choledocholithiasis. Patientunderwent ERCP with sphincterotomy with removal of 3 stones. General surgery and GI are following. He had a mild temp for which cefepime was empirically started. Follow up CT after ERCP revealed acute interstitial pancreatitis without evidence of complication with expected pneumobilia. POD #1 from robotic lap eric. Tolerated diet overnight. Feeling well on day of discharge. Denies nausea, vomiting, shortness of breath. Remains afebrile. BP controlled. He is appropriate for discharge home today. Pt understands and agrees to the plan as set forth. Review of Systems: Constitutional: negative for chills, fevers, sweats Respiratory: negative for cough, dyspnea on exertion, hemoptysis, shortness of breath, wheezing Cardiovascular: negative for chest pain, chest pressure/discomfort, lower extremity edema, palpitations Gastrointestinal: positive for right-upper quadrant abdominal pain at incision site; negative for constipation, diarrhea, nausea, vomiting Neurological: negative for dizziness, headache Medications: Allergies: No Known Allergies Current Meds: Scheduled Meds: enoxaparin 30 mg Subcutaneous BID cefepime 2 g Intravenous Q12H insulin lispro 0-6 Units Subcutaneous TID WC insulin lispro 0-3 Units Subcutaneous Nightly sodium chloride flush 10 mL Intravenous 2 times per day famotidine (PEPCID) injection 20 mg Intravenous BID sodium chloride flush 10 mL Intravenous BID thiamine (VITAMIN B1) IVPB 100 mg Intravenous Q24H Continuous Infusions: dextrose PRN Meds: glucose, glucagon (rDNA), dextrose, albuterol, sodium chloride flush, potassium chloride,magnesium sulfate, acetaminophen, HYDROmorphone OR HYDROmorphone, ondansetron, hydrALAZINE, promethazine, LORazepam, metoprolol Data: Past Medical History: has a past medical history of Cholelithiasis, GERD (gastroesophageal reflux disease), HLD (hyperlipidemia), HLD (hyperlipidemia), Hypertension, New onset type 2 diabetes mellitus (HCC): 04/2019, and Pancreatitis. Social History: reports that he quit smoking about 27 years ago. His smoking use included cigarettes. He has never used smokeless tobacco. He reports that he drinks about 30.0 standard drinks of alcohol per week. He reports that he does not use drugs. Family History: Family History Problem Relation Age of Onset Diabetes Mother Liver Disease Father Vitals: BP (!) 146/86 Pulse 59 Temp 97.6 F (36.4 C) (Oral) Resp 16 Ht 5' 9 (1.753 m) Wt 237 lb (107.5 kg) SpO2 95% BMI 35.00 kg/m Temp (24hrs), Av.2 F (37.3 C), Min:97.6 F (36.4 C), Max:99.6 F (37.6 C) Recent Labs 04/17/19 1152 04/17/19170104/17/19211904/18/19718 POCGLU 166* 227* 225* 165* I/O (24Hr): Intake/Output Summary (Last 24 hours) at 04/18/2019 1049 Last data filed at 04/18/2019 0625 Gross per 24 hour Intake 55311.42 ml Output 900 ml Net 15821.42 ml Labs: Hematology: Recent Labs 04/16/19 0531 04/17/1952604/18/19517 WBC 9.5 -- 10.2 RBC 4.50 -- 4.31 HGB 14.1 -- 13.6 HCT 42.9 -- 40.5* MCV 95.3 -- 94.0 MCH 31.3 -- 31.6 MCHC 32.9 -- 33.6 RDW 12.6 -- 12.5 PLT See Reflexed IPF Result -- 150 MPV NOT REPORTED -- 10.6 INR -- 1.1 -- Chemistry: Recent Labs 04/16/1953004/18/19517 NA 136 136 K 3.9 4.2 CL 101 103 CO2 22 24 GLUCOSE 118* 230* BUN 10 13 CREATININE 0.54* 0.49* MG 2.2 2.3 ANIONGAP 13 9 LABGLOM >60 >60 GFRAA >60 >60 CALCIUM 8.4* 8.1* PHOS 3.0 3.1 Recent Labs 04/16/19 0531 04/17/19 0754 04/17/19 0959 04/17/19 11504/17/19170104/17/19211904/18/1951704/18/19718 PROT 6.2* -- -- -- -- -- -- -- -- LABALBU 2.7* 2.8* -- -- -- -- -- -- 2.8* -- AST 24 -- -- -- -- -- -- -- -- ALT 44* -- -- -- -- -- -- -- -- ALKPHOS 69 -- -- -- -- -- -- -- -- BILITOT 1.05 -- -- -- -- -- -- -- -- BILIDIR 0.41* -- -- -- -- -- -- -- -- AMYLASE 87 -- -- -- -- -- -- -- -- LIPASE 140* -- -- -- -- -- -- -- -- POCGLU -- < > 123* 132* 166* 227* 225* -- 165* < > = values in this interval not displayed. ABG:No results found for: POCPH, PHART, PH, POCPCO2, QNV4ZWH, PCO2, POCPO2, PO2ART, PO2, POCHCO3, [id number], HCO3, NBEA, PBEA, BEART, BE, THGBART, THB, [id number], [id number], [id number], O2SAT, FIO2 No results found for: SPECIAL No results found for: CULTURE Radiology: Ct Abdomen Pelvis W Iv Contrast Additional Contrast? Oral Result Date: 04/14/2019 Acute interstitial edematous pancreatitis without evidence of complication. Interval ERCP with expected pneumobilia. Fatty liver. Fl Ercp Biliary And Pancreatic S&i Result Date: 04/12/2019 ERCP images demonstrate filling defects distal common bowel duct on the initial images, not replicated on later images suggesting stone extraction. Bile ducts are smoothly demarcated without nodularity. Please refer to the procedure report for further details. Mri Abdomen W Wo Contrast Mrcp Addendum Date: 04/15/2019 ADDENDUM: Outside CT imaging from 04/11/2019 is made available for comparison. Aforementioned findings of pancreatitis, cholelithiasis and hepatic fatty infiltration appears similar to prior CT examination. Result Date: 04/15/2019 1. Acute interstitial edematous pancreatitis as described. 2. Cholelithiasis as described. 3. Normal caliber bile ducts however 2 adjacent filling defects as measured above visualized in the distal/terminal common bile duct suggesting choledocholithiasis. 4. Heterogeneous hepatic fatty infiltration. The findings were sent to the Radiology Results Communication Center at 9:02 pm on 04/11/2019to becommunicated to a licensed caregiver. Physical Examination: General appearance: alert, cooperative and no distress, sitting up in bed Mental Status: oriented to person, place and time and normal affect Lungs: clear to auscultation bilaterally, normal effort Heart: regular rate and rhythm, no murmur Abdomen: soft, mild tenderness to deep palpation of the post surgical incision changes on anterior abdominal wall, no masses, hepatomegaly, splenomegaly Extremities: no edema, redness, tenderness in the calves Skin: no gross lesions, rashes, induration Assessment: Hospital Problems Last Modified POA * (Principal) Acute gallstone pancreatitis 04/15/2019 Yes Choledocholithiasis 04/15/2019 Yes Hypertension 04/15/2019 Yes Cholelithiasis 04/15/2019 Yes GERD (gastroesophageal reflux disease) 04/15/2019 Yes HLD (hyperlipidemia) 04/15/2019 Yes Hyperglycemia 04/15/2019 Yes Transaminasemia 04/15/2019 Yes Alcohol use 04/15/2019 Yes Hypoalbuminemia 04/15/2019 Yes Thrombocytopenia (HCC) 04/15/2019 Yes New onset type 2 diabetes mellitus (HCC): 04/201904/15/2019 Yes Plan: 1. Appreciate general surgery recs 2. POD #1 from robotic lap eric 3. HL IVF 4. Stop supplemental O2 5. OK for discharge today with follow up with PCP and general surgery 6. Pain control - Percocet PRN at discharge 7. Protonix at discharge 8. Needs to follow up with PCP for Hgb A1c VARGAS DODSON DO 04/18/2019 10:49 AM * Cory Orellana MD - 04/18/2019 7:10 AM EDT Surgery Progress Note PATIENT NAME: Paty Cardona TODAY'S DATE: 04/18/2019, 7:10 AM SUBJECTIVE: No issues overnight. Reports feeling good. Minimal pain. OBJECTIVE: VITALS: BP 134/81 Pulse 55 Temp 97.7 F (36.5 C) (Oral) Resp 16 Ht 5' 9 (1.753 m) Wt 237 lb (107.5 kg) SpO2 95% BMI 35.00 kg/m INTAKE/OUTPUT: Intake/Output Summary (Last 24 hours) at 04/18/2019 0710 Last data filed at 04/18/2019 0625 Gross per 24 hour Intake 41408.42 ml Output 1870 ml Net 43961.42 ml PHYSICAL EXAM Constitutional: Vital signs are normal. The patient appears well-developed and well-nourished. HEENT: Head: Normocephalic. Atraumatic Eyes: pupils are equal and reactive. No scleral icterus is present. Neck: No mass and no thyromegaly present. Cardiovascular: Normal rate, regular rhythm, S1 normal and S2 normal. Bilateral pulses present. Pulmonary/Chest: Effort normal and breath sounds normal. No retractions. Abdominal: Soft. Incisions look fine. Tender at incisions. Musculoskeletal: Right lower leg: Normal. No tenderness and no edema. Left lower leg: Normal. No tenderness and no edema. Lymphadenopathy: No cervical adenopathy, No Exrtemity Adenopathy. Neurological: The patient is alert and oriented. Moving all four extremities equally, sensation grossly intact bilateral. Skin: Skin is warm, dry and intact. Data: CBC: Lab Results Component Value Date WBC 10.2 04/18/2019 RBC 4.31 04/18/2019 HGB 13.6 04/18/2019 HCT 40.5 04/18/2019 MCV 94.0 04/18/2019 MCH 31.6 04/18/2019 MCHC 33.6 04/18/2019 RDW 12.5 04/18/2019 PLT 150 04/18/2019 MPV 10.6 04/18/2019 CMP: Lab Results Component Value Date NA 136 04/18/2019 K 4.2 04/18/2019 CL 103 04/18/2019 CO2 24 04/18/2019 BUN 13 04/18/2019 CREATININE 0.49 04/18/2019 GFRAA >60 04/18/2019 LABGLOM >60 04/18/2019 GLUCOSE 230 04/18/2019 PROT 6.2 04/16/2019 LABALBU 2.8 04/18/2019 CALCIUM 8.1 04/18/2019 BILITOT 1.05 04/16/2019 ALKPHOS 69 04/16/2019 AST 24 04/16/2019 ALT 44 04/16/2019 ASSESSMENT 1. POD 1 s/p robotic eric 2. Gallstone pancreatitis-resolved Plan 1. Ok from my standpoint to go home today 2. Should see me in 2 weeks 3. Thank you * Lori Connell DO - 04/17/2019 8:00 PM EDT Post Op Note SUBJECTIVE Pt POD#0 s/p robotic laparoscopic cholecystectomy. Patient seen and examined at bedside. Resting comfortably. SATing upper 90's on 2L NC. States pain is tolerable with current regimen. Denies nausea,vomiting. Tolerating diet. Voiding without difficulty. Has not yet tried to ambulate. OBJECTIVE VITALS: BP 129/72 Pulse 66 Temp 98.2 F (36.8 C) (Oral) Resp 18 Ht 5' 9 (1.753 m) Wt 237 lb (107.5 kg) SpO2 97% BMI 35.00 kg/m GENERAL: awake and alert. No acute distress CARDIOVASCULAR: regular rate and rhythm LUNGS: Effort normal, no accessory muscle use ABDOMEN: Abdomen soft, appropriately TTP, non-distended INCISION: Incisions clean/dry/intact ASSESSMENT 1. POD# 0 s/p robotic laparoscopic cholecystectomy. PLAN 1. General diet 2. Encourage ambulation and IS 3. Cont pain and nausea control 4. Cont medical management per primary team Lori Connell D.O. General Surgery PGY-1 * Vargas Dodson DO - 04/17/2019 6:38 PM EDT [facility] IN-PATIENT SERVICE [facility] Progress Note 04/17/2019 6:39 PM Name: Paty Cardona Acct: [id number] Room: 0441/0441-01 Day: 6 Admit Date: 04/11/2019 4:05 PM PCP: Rodolfo Ahmadi DO Code Status: Full Code Subjective: C/C: unrelenting abdominal pain/epigastric pain Interval History Status: improved. Pt seen and examined this afternoon. He is postop day #0 from robotic lap eric with general surgery today. He is somewhat groggy from anesthesia this afternoon. However, he does admit to incisional site pain on his abdomen. Denies nausea and vomiting. Brief History: Mr. Paty Cardona is a pleasant 63 year old gentleman with a history of borderline diabetes, HTN, history of known gallstones, and seasonal allergies who presented to an outside ED with abdominalpain. He notes that he has had two previous episodes of acute pancreatitis in the past. He began experiencing abdominal pain after eating spicy wings [employer]. However, the abdominal pain did not cease after taking the jose seltzer. He presented to the ED for further workup. In the ED, lipase elevated at 1,552. MRI of the abdomen revealed acute interstitial edematous pancreatitis and cholelithiasis with two adjacent filling defects in the distal/terminal CBD suggesting choledocholithiasis. Patient un derwent ERCP with sphincterotomy with removal of 3 stones. General surgery and GI are following. Hehad a mild temp for which cefepime was empirically started. Follow up CT after ERCP revealed acute interstitial pancreatitis without evidence of complication with expected pneumobilia. POD #0 from robotic lap eric. Trial diet tonight. Of note, patient is a weekend drinker, drinking upwards of 10 beers on any given Monday night. Review of Systems: Constitutional: negative for chills, fevers, sweats Respiratory: negative for cough, dyspnea on exertion, hemoptysis, shortness of breath, wheezing Cardiovascular: negative for chest pain, chest pressure/discomfort, lower extremity edema, palpitations Gastrointestinal: positive for right-upper quadrant abdominal pain at incision site; negative for constipation, diarrhea, nausea, vomiting Neurological: negative for dizziness, headache Medications: Allergies: No Known Allergies Current Meds: Scheduled Meds: [MAR Hold] indocyanine green 5 mg Intravenous Children Counselor to OR enoxaparin 30 mg Subcutaneous BID cefepime 2 g Intravenous Q12H insulin lispro 0-6 Units Subcutaneous TID insulin lispro 0-3 Units Subcutaneous Nightly sodium chloride flush 10 mL Intravenous 2 times per day famotidine (PEPCID) injection 20 mg Intravenous BID sodium chloride flush 10 mL Intravenous BID thiamine (VITAMIN B1) IVPB 100 mg Intravenous Q24H Continuous Infusions: dextrose lactated ringers 100 mL/hr at 04/17/19 1744 PRN Meds: glucose, glucagon (rDNA), dextrose, albuterol, sodium chloride flush, potassium chloride,magnesium sulfate, acetaminophen, HYDROmorphone OR HYDROmorphone, ondansetron, hydrALAZINE, promethazine, LORazepam, metoprolol Data: Past Medical History: has a past medical history of Cholelithiasis, GERD (gastroesophageal reflux disease), HLD (hyperlipidemia), HLD (hyperlipidemia), Hypertension, New onset type 2 diabetes mellitus (HCC): 04/2019, and Pancreatitis. Social History: reports that he quit smoking about 27 years ago. His smoking use included cigarettes. He has never used smokeless tobacco. He reports that he drinks about 30.0 standard drinks of alcohol per week. He reports that he does not use drugs. Family History: Family History Problem Relation Age of Onset Diabetes Mother Liver Disease Father Vitals: BP 112/71 Pulse 68 Temp 98.1 F (36.7 C) (Oral) Resp 18 Ht 5' 9 (1.753 m) Wt 237 lb (107.5 kg) SpO2 96% BMI 35.00 kg/m Temp (24hrs), Av.2 F (37.3 C), Min:97.7 F (36.5 C), Max:99.6 F (37.6 C) Recent Labs 04/17/19 0754 04/17/19 0959 04/17/19 1152 04/17/19 1702 POCGLU 123* 132* 166* 227* I/O (24Hr): Intake/Output Summary (Last 24 hours) at 04/17/2019 1839 Last data filed at 04/17/2019 1231 Gross per 24 hour Intake 865 ml Output 2520 ml Net -1655 ml Labs: Hematology: Recent Labs 04/15/1955004/16/1953004/17/19526 WBC 10.0 9.5 -- RBC 4.39 4.50 -- HGB 13.7 14.1 -- HCT 41.9 42.9 -- MCV 95.4 95.3 -- MCH 31.2 31.3 -- MCHC 32.7 32.9 -- RDW 12.4 12.6 -- PLT See Reflexed IPF Result See Reflexed IPF Result -- MPV NOT REPORTED NOT REPORTED -- INR -- -- 1.1 Chemistry: Recent Labs 04/15/1955004/16/19530 NA 131* 136 K 3.9 3.9 CL 99 101 CO2 22 22 GLUCOSE 128* 118* BUN 9 10 CREATININE 0.48* 0.54* MG -- 2.2 ANIONGAP 10 13 LABGLOM >60 >60 GFRAA >60 >60 CALCIUM 8.0* 8.4* CAION 1.03* -- PHOS 3.0 3.0 Recent Labs 04/15/19 0551 04/16/19 0531 04/16/19 1624 04/16/19 2133 04/17/19 0754 04/17/19 0959 04/17/19 1152 04/17/19 1702 PROT 5.7* -- 6.2* -- -- -- -- -- -- -- LABALBU 2.7* -- 2.7* 2.8* -- -- -- -- -- -- -- AST 23 -- 24 -- -- -- -- -- -- -- ALT 54* -- 44* -- -- -- -- -- -- -- ALKPHOS 52 -- 69 -- -- -- -- -- -- -- BILITOT 1.17 -- 1.05 -- -- -- -- -- -- -- BILIDIR 0.40* -- 0.41* -- -- -- -- -- -- -- AMYLASE 143* -- 87 -- -- -- -- -- -- -- LIPASE 256* -- 140* -- -- -- -- -- -- -- POCGLU -- < > -- < > 109 138* 123* 132* 166* 227* < > = values in this interval not displayed. ABG:No results found for: POCPH, PHART, PH, POCPCO2, MXC9DMS, PCO2, POCPO2, PO2ART, PO2, POCHCO3, HOZ3QPA, HCO3, NBEA, PBEA, BEART, BE, THGBART, THB, QSP8SGN, [id number], [id number], O2SAT, FIO2 No results found for: SPECIAL No results found for: CULTURE Radiology: Ct Abdomen Pelvis W Iv Contrast Additional Contrast? Oral Result Date: 04/14/2019 Acute interstitial edematous pancreatitis without evidence of complication. Interval ERCP with expected pneumobilia. Fatty liver. Fl Ercp Biliary And Pancreatic S&i Result Date: 04/12/2019 ERCP images demonstrate filling defects distal common bowel duct on the initial images, not replicated on later images suggesting stone extraction. Bile ducts are smoothly demarcated without nodularity. Please refer to the procedure report for further details. Mri Abdomen W Wo Contrast Mrcp Addendum Date: 04/15/2019 ADDENDUM: Outside CT imaging from 04/11/2019 is made available for comparison. Aforementioned findings of pancreatitis, cholelithiasis and hepatic fatty infiltration appears similar to prior CT examination. Result Date: 04/15/2019 1. Acute interstitial edematous pancreatitis as described. 2. Cholelithiasis as described. 3. Normal caliber bile ducts however 2 adjacent filling defects as measured above visualized in the distal/terminal common bile duct suggesting choledocholithiasis. 4. Heterogeneous hepatic fatty infiltration. The findings were sent to the Radiology Results Communication Center at 9:02 pm on 04/11/2019to becommunicated to a licensed caregiver. Physical Examination: General appearance: alert, cooperative and no distress, sitting up in bed Mental Status: oriented to person, place and time and normal affect Lungs: clear to auscultation bilaterally, normal effort Heart: regular rate and rhythm, no murmur Abdomen: soft, mild tenderness to deep palpation of the post surgical incision changes on anterior abdominal wall, no masses, hepatomegaly, splenomegaly Extremities: no edema, redness, tenderness in the calves Skin: no gross lesions, rashes, induration Assessment: Hospital Problems Last Modified POA * (Principal) Acute gallstone pancreatitis 04/15/2019 Yes Choledocholithiasis 04/15/2019 Yes Hypertension 04/15/2019 Yes Cholelithiasis 04/15/2019 Yes GERD (gastroesophageal reflux disease) 04/15/2019 Yes HLD (hyperlipidemia) 04/15/2019 Yes Hyperglycemia 04/15/2019 Yes Transaminasemia 04/15/2019 Yes Alcohol use 04/15/2019 Yes Hypoalbuminemia 04/15/2019 Yes Thrombocytopenia (HCC) 04/15/2019 Yes New onset type 2 diabetes mellitus (HCC): 04/201904/15/2019 Yes Plan: 1. Appreciate general surgery recs 2. POD #0 from robotic lap eric 3. Continue LR 4. Trial diet tonight 5. Pain control 6. Continue insulin sliding scale 7. Check labs in AM 8. Monitor BP - elevated; decreasing IVF at this time 9. PT/OT 10. Continue Pepcid and Lovenox (adjusted to 30 mg BID) for GI and DVT ppx 11. If tolerating diet and OK with general surgery - will discharge tomorrow VARGAS DODSON DO 04/17/2019 6:39 PM * Leanne Jay RN - 04/17/2019 10:08 AM EDT Patient stated that family is on the way from [place]. Resting in bed with side rails up 10/04 and call light in reach. * Anmol Kuhn Jr., DO - 04/17/2019 9:19 AM EDT Surgery Progress Note PATIENT NAME: Paty Cardona TODAY'S DATE: 04/17/2019, 9:19 AM SUBJECTIVE: Patient seen and examined. No clinical change overnight. OBJECTIVE: VITALS: BP (!) 142/88 Pulse 69 Temp 99.1 F (37.3 C) (Oral) Resp 22 Ht 5' 9 (1.753 m) Wt 237 lb 8 oz (107.7 kg) SpO2 94% BMI 35.07 kg/m INTAKE/OUTPUT: Intake/Output Summary (Last 24 hours) at 04/17/2019 09 Last data filed at 04/17/2019 0756 Gross per 24 hour Intake 850 ml Output 2870 ml Net -2020 ml PHYSICAL EXAM Constitutional: Vital signs are normal. The patient appears well-developed and well-nourished. HEENT: Head: Normocephalic. Atraumatic Eyes: pupils are equal and reactive. No scleral icterus is present. Neck: No mass and no thyromegaly present. Cardiovascular: Normal rate, regular rhythm, S1 normal and S2 normal. Bilateral pulses present. Pulmonary/Chest: Effort normal and breath sounds normal. No retractions. Abdominal: Soft. mild tenderness to palpation. No rebound or guarding. Musculoskeletal: Right lower leg: Normal. No tenderness and no edema. Left lower leg: Normal. No tenderness and no edema. Lymphadenopathy: No cervical adenopathy, No Exrtemity Adenopathy. Neurological: The patient is alert and oriented. Moving all four extremities equally, sensation grossly intact bilateral. Skin: Skin is warm, dry and intact. Data: CBC: Lab Results Component Value Date WBC 9.5 04/16/2019 RBC 4.50 04/16/2019 HGB 14.1 04/16/2019 HCT 42.9 04/16/2019 MCV 95.3 04/16/2019 MCH 31.3 04/16/2019 MCHC 32.9 04/16/2019 RDW 12.6 04/16/2019 PLT See Reflexed IPF Result 04/16/2019 MPV NOT REPORTED 04/16/2019 BMP: Lab Results Component Value Date NA 136 04/16/2019 K 3.9 04/16/2019 CL 101 04/16/2019 CO2 22 04/16/2019 BUN 10 04/16/2019 LABALBU 2.8 04/16/2019 LABALBU 2.7 04/16/2019 CREATININE 0.54 04/16/2019 CALCIUM 8.4 04/16/2019 GFRAA >60 04/16/2019 LABGLOM >60 04/16/2019 GLUCOSE 118 04/16/2019 ASSESSMENT 1. Gallstone pancreatitis with choledocholithiasis Plan 1. OR today for jus reyes 2. Consent obtained * Diann Ac RN - 04/17/2019 3:15 AM EDT Report for change of nurses at 0315. Reporting nurse states that pt has been NPO since 0000 and hadhipiclens bath for surgery. * Vargas Dodson DO - 04/16/2019 7:55 PM EDT [facility] IN-PATIENT SERVICE [facility] Progress Note 04/16/2019 7:56 PM Name: Paty Cardona Acct: [id number] Room: [facility]-01 Day: 5 Admit Date: 04/11/2019 4:05 PM PCP: Rodolfo Ahmadi DO Code Status: Full Code Subjective: C/C: unrelenting abdominal pain/epigastric pain Interval History Status: improved. Pt seen and examined this morning. No acute events overnight. Tolerating clear liquids. Abdominal pain has significantly improved. No nausea at this time. Occasional left-sided abdominal pain. Hypertensive this afternoon. Labs remain stable. He's in decent spirits. Brief History: Mr. Paty Cardona is a pleasant 63 year old gentleman with a history of borderline diabetes, HTN, history of known gallstones, and seasonal allergies who presented to an outside ED with abdominalpain. He notes that he has had two previous episodes of acute pancreatitis in the past. He began experiencing abdominal pain after eating spicy wings [employer]. However, the abdominal pain did not cease after taking the jose seltzer. He presented to the ED for further workup. In the ED, lipase elevated at 1,552. MRI of the abdomen revealed acute interstitial edematous pancreatitis and cholelithiasis with two adjacent filling defects in the distal/terminal CBD suggesting choledocholithiasis. Patient un derwent ERCP with sphincterotomy with removal of 3 stones. General surgery and GI are following. Hehad a mild temp for which cefepime was empirically started. Follow up CT after ERCP revealed acute interstitial pancreatitis without evidence of complication with expected pneumobilia. Trial CLD today. Possible cholecystectomy tomorrow. Of note, patient is a weekend drinker, drinking upwards of 10 beers on any given Monday night. Review of Systems: Constitutional: negative for chills, fevers, sweats Respiratory: negative for cough, dyspnea on exertion, hemoptysis, shortness of breath, wheezing Cardiovascular: negative for chest pain, chest pressure/discomfort, lower extremity edema, palpitations Gastrointestinal: positive for left-sided and right-upper quadrant abdominal pain which is improving; negative for constipation, diarrhea, nausea, vomiting Neurological: negative for dizziness, headache Medications: Allergies: No Known Allergies Current Meds: Scheduled Meds: [START ON 04/17/2019] ceFAZolin 2 g Intravenous Children Counselor to OR [START ON 04/17/2019] indocyanine green 5 mg Intravenous Children Counselor to OR [START ON 04/17/2019] enoxaparin 30 mg Subcutaneous BID cefepime 2 g Intravenous Q12H insulin lispro 0-6 Units Subcutaneous TID WC insulin lispro 0-3 Units Subcutaneous Nightly sodium chloride flush 10 mL Intravenous 2 times per day famotidine (PEPCID) injection 20 mg Intravenous BID sodium chloride flush 10 mL Intravenous BID thiamine (VITAMIN B1) IVPB 100 mg Intravenous Q24H Continuous Infusions: dextrose lactated ringers 175 mL/hr at 04/16/19 1736 PRN Meds: glucose, glucagon (rDNA), dextrose, albuterol, sodium chloride flush, potassium chloride,magnesium sulfate, acetaminophen, HYDROmorphone OR HYDROmorphone, ondansetron, hydrALAZINE, promethazine, LORazepam, metoprolol Data: Past Medical History: has a past medical history of Cholelithiasis, GERD (gastroesophageal reflux disease), HLD (hyperlipidemia), HLD (hyperlipidemia), Hypertension, New onset type 2 diabetes mellitus (HCC): 04/2019, and Pancreatitis. Social History: reports that he quit smoking about 27 years ago. His smoking use included cigarettes. He has never used smokeless tobacco. He reports that he drinks about 30.0 standard drinks of alcohol per week. He reports that he does not use drugs. Family History: Family History Problem Relation Age of Onset Diabetes Mother Liver Disease Father Vitals: BP (!) 153/82 Pulse 77 Temp 98.9 F (37.2 C) (Oral) Resp 16 Ht 5' 9 (1.753 m) Wt 240 lb 1.6 oz (108.9 kg) SpO2 95% BMI 35.46 kg/m Temp (24hrs), Av.7 F (37.1 C), Min:98.6 F (37 C), Max:98.9 F (37.2 C) Recent Labs 04/15/19 2053 04/16/19 0735 04/16/19 1140 04/16/19 1624 POCGLU 123* 102 167* 109 I/O (24Hr): Intake/Output Summary (Last 24 hours) at 04/16/2019 195 Last data filed at 04/16/2019 1733 Gross per 24 hour Intake 2100 ml Output 2900 ml Net -800 ml Labs: Hematology: Recent Labs 04/14/1960704/15/1955004/16/19 05 WBC 8.1 10.0 9.5 RBC 4.20* 4.39 4.50 HGB 13.1 13.7 14.1 HCT 41.0 41.9 42.9 MCV 97.6 95.4 95.3 MCH 31.2 31.2 31.3 MCHC 32.0 32.7 32.9 RDW 12.7 12.4 12.6 PLT See Reflexed IPF Result See Reflexed IPF Result See Reflexed IPF Result MPV NOT REPORTED NOT REPORTED NOT REPORTED Chemistry: Recent Labs 04/14/1960704/15/1953 04/16/19530 NA -- 131* 136 K -- 3.9 3.9 CL -- 99 101 CO2 -- 22 22 GLUCOSE -- 128* 118* BUN -- 9 10 CREATININE -- 0.48* 0.54* MG -- -- 2.2 ANIONGAP -- 10 13 LABGLOM -- >60 >60 GFRAA -- >60 >60 CALCIUM -- 8.0* 8.4* CAION 1.02* 1.03* -- PHOS -- 3.0 3.0 Recent Labs 04/14/19 0608 04/15/19 0551 04/15/19 0821 04/15/19 1653 04/15/19 2053 04/16/19 0531 04/16/19 0735 04/16/19 1140 04/16/19 1624 PROT -- -- 5.7* -- -- -- -- -- -- -- LABALBU -- -- 2.7* -- -- -- 2.8* -- -- -- AST -- -- 23 -- -- -- -- -- -- -- ALT -- -- 54* -- -- -- -- -- -- -- ALKPHOS -- -- 52 -- -- -- -- -- -- -- BILITOT -- -- 1.17 -- -- -- -- -- -- -- BILIDIR -- -- 0.40* -- -- -- -- -- -- -- AMYLASE 149* -- 143* -- -- -- -- -- -- -- LIPASE 251* -- 256* -- -- -- -- -- -- -- POCGLU -- < > -- 112* 110 123* -- 102 167* 109 < > = values in this interval not displayed. ABG:No results found for: POCPH, PHART, PH, POCPCO2, [id number], PCO2, POCPO2, PO2ART, PO2, POCHCO3, [id number], HCO3, NBEA, PBEA, BEART, BE, THGBART, THB, [id number], [id number], [id number], O2SAT, FIO2 No results found for: SPECIAL No results found for: CULTURE Radiology: Ct Abdomen Pelvis W Iv Contrast Additional Contrast? Oral Result Date: 04/14/2019 Acute interstitial edematous pancreatitis without evidence of complication. Interval ERCP with expected pneumobilia. Fatty liver. Fl Ercp Biliary And Pancreatic S&i Result Date: 04/12/2019 ERCP images demonstrate filling defects distal common bowel duct on the initial images, not replicated on later images suggesting stone extraction. Bile ducts are smoothly demarcated without nodularity. Please refer to the procedure report for further details. Mri Abdomen W Wo Contrast Mrcp Addendum Date: 04/15/2019 ADDENDUM: Outside CT imaging from 04/11/2019 is made available for comparison. Aforementioned findings of pancreatitis, cholelithiasis and hepatic fatty infiltration appears similar to prior CT examination. Result Date: 04/15/2019 1. Acute interstitial edematous pancreatitis as described. 2. Cholelithiasis as described. 3. Normal caliber bile ducts however 2 adjacent filling defects as measured above visualized in the distal/terminal common bile duct suggesting choledocholithiasis. 4. Heterogeneous hepatic fatty infiltration. The findings were sent to the Radiology Results Communication Center at 9:02 pm on 04/11/2019to becommunicated to a licensed caregiver. Physical Examination: General appearance: alert, cooperative and no distress, sitting up in bed Mental Status: oriented to person, place and time and normal affect Lungs: clear to auscultation bilaterally, normal effort Heart: regular rate and rhythm, no murmur Abdomen: soft, mild tenderness to deep palpation of the RUQ and mild tenderness of the LUQ; normal bowel sounds, no masses, hepatomegaly, splenomegaly Extremities: no edema, redness, tenderness in the calves Skin: no gross lesions, rashes, induration Assessment: Hospital Problems Last Modified POA * (Principal) Acute gallstone pancreatitis 04/15/2019 Yes Choledocholithiasis 04/15/2019 Yes Hypertension 04/15/2019 Yes Cholelithiasis 04/15/2019 Yes GERD (gastroesophageal reflux disease) 04/15/2019 Yes HLD (hyperlipidemia) 04/15/2019 Yes Hyperglycemia 04/15/2019 Yes Transaminasemia 04/15/2019 Yes Alcohol use 04/15/2019 Yes Hypoalbuminemia 04/15/2019 Yes Thrombocytopenia (HCC) 04/15/2019 Yes New onset type 2 diabetes mellitus (HCC): 04/201904/15/2019 Yes Plan: 1. Appreciate general surgery recs 2. Cholecystectomy planned for tomorrow 3. Decrease LR to 100 cc/hr (decreased from 175 cc/hr) 4. Continue CLD; NPO after MN; full diet tomorrow after surgery 5. Continue insulin sliding scale 6. Check coags in AM 7. Monitor BP - elevated; decreasing IVF at this time 8. PT/OT 9. Continue Pepcid and Lovenox (adjusted to 30 mg BID) for GI and DVT ppx VARGAS DODSON DO 04/16/2019 7:56 PM * Rosario Foy, RD, LD - 04/16/2019 12:36 PM EDT Nutrition Assessment Type and Reason for Visit: Initial Nutrition Recommendations: Will add Ensure Clear supplements to Clear Liquid diet Nutrition Assessment: Chart reviewed due to 5 days npo/liquid diet. Plan is for cholecystectomy tomorrow. Pt has been instructed on DM diet by [employer] Analyst- note reviewed- however upon discussion with pt he states, I'm not diabetic. It was just high because of the pain . Encouraged pt there are no specific foods to avoid after cholecystecomy Malnutrition Assessment: Malnutrition Status: No malnutrition Context: Acute illness or injury Findings of the 6 clinical characteristics of malnutrition (Minimum of 2 out of 6 clinical characteristics is required to make the diagnosis of moderate or severe Protein Calorie Malnutrition based on AND/ASPEN Guidelines): 1. Energy Intake-Greater than 75% of estimated energy requirement, Greater than or equal to 3 months 2. Weight Loss-No significant weight loss, 3. Fat Loss-No significant subcutaneous fat loss, 4. Muscle Loss-No significant muscle mass loss, 5. Fluid Accumulation-Mild fluid accumulation, Generalized 6. Friction Paint Machine Tender Strength-Not measured Nutrition Risk Level: Moderate Nutrient Needs: Estimated Daily Total Kcal: 28 kcal/kg= 2100 kcal Estimated Daily Protein (g): 1.2 g/kg= 85g Nutrition Diagnosis: Problem: Inadequate oral intake Etiology: related to Alteration in GI function ? Signs and symptoms: as evidenced by (npo/liquids greater than 5 days) Objective Information: Current Nutrition Therapies: Oral Diet Orders: Clear Liquid Oral Diet intake: 1-25% Anthropometric Measures: Ht: 5' 9 (175.3 cm) Current Body Wt: 240 lb (108.9 kg) [place] Body Wt: 160 lb (72.6 kg), % [place] Body 150% BMI Classification: BMI 35.0 - 39.9 Obese Class II Nutrition Interventions: Start ONS Education Completed Nutrition Evaluation: Evaluation: Goals set Goals: advance to solid food within 48 hours Monitoring: Nutrition Progression, Supplement Intake, Meal Intake Contact Number: [phone] * Cory Orellana MD - 04/16/2019 8:17 AM EDT Surgery Progress Note PATIENT NAME: Paty Cardona TODAY'S DATE: 04/16/2019, 8:17 AM SUBJECTIVE: Patient reports that his abdominal pain continues to slowly improve. He does report ongoing pain with eating. He denies any nausea or vomiting. OBJECTIVE: VITALS: BP (!) 144/95 Pulse 74 Temp 98.6 F (37 C) (Oral) Resp 16 Ht 5' 9 (1.753 m) Wt 240 lb 1.6 oz (108.9 kg) SpO2 95% BMI 35.46 kg/m INTAKE/OUTPUT: Intake/Output Summary (Last 24 hours) at 04/16/2019 0817 Last data filed at 04/16/2019 0737 Gross per 24 hour Intake 1740 ml Output 2850 ml Net -1110 ml PHYSICAL EXAM Constitutional: Vital signs are normal. The patient appears well-developed and well-nourished. HEENT: Head: Normocephalic. Atraumatic Eyes: pupils are equal and reactive. No scleral icterus is present. Neck: No mass and no thyromegaly present. Cardiovascular: Normal rate, regular rhythm, S1 normal and S2 normal. Bilateral pulses present. Pulmonary/Chest: Effort normal and breath sounds normal. No retractions. Abdominal: Soft. mild tenderness to palpation. No rebound or guarding. Musculoskeletal: Right lower leg: Normal. No tenderness and no edema. Left lower leg: Normal. No tenderness and no edema. Lymphadenopathy: No cervical adenopathy, No Exrtemity Adenopathy. Neurological: The patient is alert and oriented. Moving all four extremities equally, sensation grossly intact bilateral. Skin: Skin is warm, dry and intact. Data: CBC: Lab Results Component Value Date WBC 9.5 04/16/2019 RBC 4.50 04/16/2019 HGB 14.1 04/16/2019 HCT 42.9 04/16/2019 MCV 95.3 04/16/2019 MCH 31.3 04/16/2019 MCHC 32.9 04/16/2019 RDW 12.6 04/16/2019 PLT See Reflexed IPF Result 04/16/2019 MPV NOT REPORTED 04/16/2019 BMP: Lab Results Component Value Date NA 136 04/16/2019 K 3.9 04/16/2019 CL 101 04/16/2019 CO2 22 04/16/2019 BUN 10 04/16/2019 LABALBU 2.8 04/16/2019 CREATININE 0.54 04/16/2019 CALCIUM 8.4 04/16/2019 GFRAA >60 04/16/2019 LABGLOM >60 04/16/2019 GLUCOSE 118 04/16/2019 ASSESSMENT 1. Gallstone pancreatitis with choledocholithiasis Plan 1. Clinically continues to improve. Will tentatively plan on cholecystectomy tomorrow. 2. Repeat liver function tests and amylase and lipase today. * Vargas Dodson, - 04/15/2019 1:09 PM EDT [facility] IN-PATIENT SERVICE [facility] Progress Note 04/15/2019 1:09 PM Name: Paty Cardona Acct: [id number] Room: 0441/0441-01 Day: 4 Admit Date: 04/11/2019 4:05 PM PCP: Rodolfo Ahmadi DO Code Status: Full Code Subjective: C/C: unrelenting abdominal pain/epigastric pain Interval History Status: improved. Pt seen and examined this morning. No acute events overnight. Trial of clear liquids with subsequent nausea. Denies chest pain, shortness of breath. Does admit to left-sided abdominal pain. Using incentive spirometry, which is at bedside. Elevated temps noted - Tmax 100.2F at noon on 04/14. Patientdoes note that he often gets fevers the day after receiving his flu shot. Brief History: Mr. Paty Cardona is a pleasant 63 year old gentleman with a history of borderline diabetes, HTN, history of known gallstones, and seasonal allergies who presented to an outside ED with abdominalpain. He notes that he has had two previous episodes of acute pancreatitis in the past. He began experiencing abdominal pain after eating spicy wings [employer]. However, the abdominal pain did not cease after taking the jose seltzer. He presented to the ED for further workup. In the ED, lipase elevated at 1,552. MRI of the abdomen revealed acute interstitial edematous pancreatitis and cholelithiasis with two adjacent filling defects in the distal/terminal CBD suggesting choledocholithiasis. Patient un derwent ERCP with sphincterotomy with removal of 3 stones. General surgery and GI are following. Hehad a mild temp for which cefepime was empirically started. Follow up CT after ERCP revealed acute interstitial pancreatitis without evidence of complication with expected pneumobilia. Trial CLD today. Possible cholecystectomy at general surgery's discretion. Of note, patient is a weekend drinker, drinking upwards of 10 beers on any given Monday night. Review of Systems: Constitutional: negative for chills, fevers, sweats Respiratory: negative for cough, dyspnea on exertion, hemoptysis, shortness of breath, wheezing Cardiovascular: negative for chest pain, chest pressure/discomfort, lower extremity edema, palpitations Gastrointestinal: positive for left-sided and right-upper quadrant abdominal pain; negative for constipation, diarrhea, nausea, vomiting Neurological: negative for dizziness, headache Medications: Allergies: No Known Allergies Current Meds: Scheduled Meds: cefepime 2 g Intravenous Q12H insulin lispro 0-6 Units Subcutaneous TID WC insulin lispro 0-3 Units Subcutaneous Nightly sodium chloride flush 10 mL Intravenous 2 times per day famotidine (PEPCID) injection 20 mg Intravenous BID enoxaparin 40 mg Subcutaneous Daily sodium chloride flush 10 mL Intravenous BID thiamine (VITAMIN B1) IVPB 100 mg Intravenous Q24H Continuous Infusions: lactated ringers 250 mL/hr at 04/15/19 0523 PRN Meds: albuterol, sodium chloride flush, potassium chloride, magnesium sulfate, acetaminophen, HYDROmorphone OR HYDROmorphone, ondansetron, hydrALAZINE, promethazine, LORazepam, metoprolol Data: Past Medical History: has a past medical history of Cholelithiasis, GERD (gastroesophageal reflux disease), HLD (hyperlipidemia), HLD (hyperlipidemia), Hypertension, New onset type 2 diabetes mellitus (HCC): 04/2019, and Pancreatitis. Social History: reports that he quit smoking about 27 years ago. His smoking use included cigarettes. He has never used smokeless tobacco. He reports that he drinks about 30.0 standard drinks of alcohol per week. He reports that he does not use drugs. Family History: Family History Problem Relation Age of Onset Diabetes Mother Liver Disease Father Vitals: BP 137/73 Pulse 71 Temp 98.9 F (37.2 C) (Oral) Resp 16 Ht 5' 9 (1.753 m) Wt 246 lb 11.2 oz (111.9 kg) SpO2 94% BMI 36.43 kg/m Temp (24hrs), Av.8 F (37.1 C), Min:98.1 F (36.7 C), Max:99.4 F (37.4 C) Recent Labs 04/14/19 1217 04/14/19 1611 04/14/198 04/15/19 0821 POCGLU 122* 108 126* 112* I/O (24Hr): Intake/Output Summary (Last 24 hours) at 04/15/2019 1309 Last data filed at 04/15/2019 1217 Gross per 24 hour Intake 5067 ml Output 4300 ml Net 767 ml Labs: Hematology: Recent Labs 04/14/1960704/15/19 05 WBC 8.1 10.0 RBC 4.20* 4.39 HGB 13.1 13.7 HCT 41.0 41.9 MCV 97.6 95.4 MCH 31.2 31.2 MCHC 32.0 32.7 RDW 12.7 12.4 PLT See Reflexed IPF Result See Reflexed IPF Result MPV NOT REPORTED NOT REPORTED Chemistry: Recent Labs 04/13/19 0604/14/19 0608 04/15/1953 NA -- -- 131* K -- -- 3.9 CL -- -- 99 CO2 -- -- 22 GLUCOSE -- -- 128* BUN -- -- 9 CREATININE -- -- 0.48* ANIONGAP -- -- 10 LABGLOM -- -- >60 GFRAA -- -- >60 CALCIUM -- -- 8.0* CAION 1.00* 1.02* 1.03* PHOS -- -- 3.0 Recent Labs 04/12/19 1637 04/13/1963804/13/19 16204/13/19200404/14/19 0604/14/19 1217 04/14/19 1611 04/14/198 04/15/19 0551 04/15/19 0821 PROT -- -- 5.7* -- -- -- -- -- -- -- 5.7* -- LABALBU -- -- 2.9* -- -- -- -- -- -- -- 2.7* -- LABA1C 6.6* -- -- -- -- -- -- -- -- -- -- -- AST -- -- 36 -- -- -- -- -- -- -- 23 -- ALT -- -- 103* -- -- -- -- -- -- -- 54* -- ALKPHOS -- -- 41 -- -- -- -- -- -- -- 52 -- BILITOT -- -- 0.87 -- -- -- -- -- -- -- 1.17 -- BILIDIR -- -- 0.33* -- -- -- -- -- -- -- 0.40* -- AMYLASE -- -- -- -- -- -- 149* -- -- -- 143* -- LIPASE -- -- 288* -- -- -- 251* -- -- -- 256* -- POCGLU -- < > -- < > 132* 154* -- 122* 108 126* -- 112* < > = values in this interval not displayed. ABG:No results found for: POCPH, PHART, PH, POCPCO2, [id number], PCO2, POCPO2, PO2ART, PO2, POCHCO3, [id number], HCO3, NBEA, PBEA, BEART, BE, THGBART, THB, [id number], [id number], [id number], O2SAT, FIO2 No results found for: SPECIAL No results found for: CULTURE Radiology: Ct Abdomen Pelvis W Iv Contrast Additional Contrast? Oral Result Date: 04/14/2019 Acute interstitial edematous pancreatitis without evidence of complication. Interval ERCP with expected pneumobilia. Fatty liver. Fl Ercp Biliary And Pancreatic S&i Result Date: 04/12/2019 ERCP images demonstrate filling defects distal common bowel duct on the initial images, not replicated on later images suggesting stone extraction. Bile ducts are smoothly demarcated without nodularity. Please refer to the procedure report for further details. Mri Abdomen W Wo Contrast Mrcp Addendum Date: 04/15/2019 ADDENDUM: Outside CT imaging from 04/11/2019 is made available for comparison. Aforementioned findings of pancreatitis, cholelithiasis and hepatic fatty infiltration appears similar to prior CT examination. Result Date: 04/15/2019 1. Acute interstitial edematous pancreatitis as described. 2. Cholelithiasis as described. 3. Normal caliber bile ducts however 2 adjacent filling defects as measured above visualized in the distal/terminal common bile duct suggesting choledocholithiasis. 4. Heterogeneous hepatic fatty infiltration. The findings were sent to the Radiology Results Communication Center at 9:02 pm on 04/11/2019to becommunicated to a licensed caregiver. Physical Examination: General appearance: alert, cooperative and no distress, sitting up in bed Mental Status: oriented to person, place and time and normal affect Lungs: clear to auscultation bilaterally, normal effort Heart: regular rate and rhythm, no murmur Abdomen: soft, mild tenderness to deep palpation of the RUQ and mild tenderness of the LUQ; normal bowel sounds, no masses, hepatomegaly, splenomegaly Extremities: no edema, redness, tenderness in the calves Skin: no gross lesions, rashes, induration Assessment: Hospital Problems Last Modified POA * (Principal) Acute gallstone pancreatitis 04/15/2019 Yes Choledocholithiasis 04/15/2019 Yes Hypertension 04/15/2019 Yes Cholelithiasis 04/15/2019 Yes GERD (gastroesophageal reflux disease) 04/15/2019 Yes HLD (hyperlipidemia) 04/15/2019 Yes Hyperglycemia 04/15/2019 Yes Transaminasemia 04/15/2019 Yes Alcohol use 04/15/2019 Yes Hypoalbuminemia 04/15/2019 Yes Thrombocytopenia (HCC) 04/15/2019 Yes New onset type 2 diabetes mellitus (HCC): 04/201904/15/2019 Yes Plan: 1. Appreciate general surgery recs 2. Cholecystectomy at discretion of general surgery 3. Continue LR @ 175 cc/hr (decreased from 250 cc/hr) 4. Trial CLD today 5. Lipase continues to improve 6. Continue insulin sliding scale 7. Trend daily labs 8. Monitor BP - improved today 9. PT/OT 10. Continue Pepcid and Lovenox for GI and DVT ppx VARGAS DODSON DO 04/15/2019 1:09 PM * Jayleen Dunn RN - 04/15/2019 11:12 AM EDT Paty Cardona, Seen for evaluation and education on Type 2 new diagnosis. Lab Results Component Value Date LABA1C 6.6 (H) 04/12/2019 Lab Results Component Value Date EAG 143 04/12/2019 Discussed with Paty Cardona, his new diagnosis. Patient states that his has T2DM and checks her BG so has checked his on occ but it has not been elevated like it has since admission. 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 He often does not eat all day and will wait until he is home and then eats a big meal. Patient states he had to take about 1 month off no too long agoto get stem cell transplant for knees to grow new cartilage. This was done in [place]. Then all this developed so concerned about time off. Patient does get activity with the loading and unloading during the day with his job. Following Survival Skills education topics were covered as appropriate to patient plan of for care: __x_ Type 2 Diabetes diagnosis as chronic and progressive _x__ Healthy eating - CHO food groups and need for CHO controlled diet. Elimination of sugary beverages, avoid skipping meal Stressed importance of eating all 3 meals and snacks and meeting with steam and power supervisor to help develop a plan. Main beverage is water. _x__ Role of physical activity - bouts of walking, swimming or low impact aerobics as recommended by care providers- aim for 30 minutes per day ___ Blood Glucose Self-Monitoring ( BGSM) Discussed talking with Doctor about home blood glucose monitoring but emphasized importance of 3 morepeat A1C. _x__ Blood sugar targets Pre meal 80 - 130 and 2 hours post meal < 180 _x__ Hyperglycemia ( BG over 250) signs and symptoms and treatment __ Sick Day Care _x__ Hypoglycemia( BG < than 70) signs and symptoms and treatment Rule of 15 ___ Keep BG log and take log and meter to follow up HCP appointments _x__ Medications - Insulin Lantus - Basal ( long acting) / Humalog- Bolus (pre meal) regime - insulin action times. Did discuss action of insulin although patient has only needed very little rapid acting insulin per ISS. No hands on instruction done. _x__ Importance of dosing pre meal rapid insulin from BG result at time of start of meal & administering within 15 minutes of eating meals ___ Importance of taking long acting insulin at same time each day and not to skip doses ___ Demonstration of self-administering insulin via vial and syringe ___ Demonstration of self-administering insulin via Pen and pen needle tips ___ Reinforce safe needle / sharps disposal ___ Insulin injection site rotation _x__ Medications - Orals Discussed action of Metformin if decision made to start Following Support materials were provided for patient to take home: _x__ Educational Booklets as available ADA Where Do I Begin? Living with Type 2 Diabetes _x__ Be safe with [place] teaching sheet / [place] EPA Disposal of Household Generated Sharps _x__ Type 2 Diabetes and Adding Insulin fold out with survival skills _x__ [facility] Diabetes Education brochure/ contact card Patient needs reinforcement. understanding of survival skills education. Patient was very receptiveand willing to make changes in eating habits. 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 RN Bedside Support Plan: _x__ Bedside RN to support patient with administration of insulin at bedside _x__ Bedside RN to support patient with SMBG - - Reinforce target BG ranges, Hyper and Hypo signs and symptoms and treatment and how to use a home BG meter _x_ Bedside RN to coordinate BG Check with mealtime and insulin __ Bedside RN to ensure snack at HS for patient on HS correction scale insulin _x_ Bedside RN to reinforce survival skills education and diabetes self care __x_ set up patient to watch Education TV Channels ( [employer] Channels 75 and 76 at 9am, 3pm, 7pm, 9pm) RECOMMENDATIONS FOR OUTPATIENT PLAN: Diabetes Self-Monitoring Supplies: Unsure if patient will need to check BG, or follow with 3 mo [id number] decision made by PCP. _x__ Preferred / formulary blood glucose meter for BGSM at home use _x__ Strips and lancets for 3 frequency of home BGSM Diabetes Medications: ___ Insulin Pen or Vial Basal / long acting - dose per MD ___ Insulin Pen or Vial Bolus pre meal set dose or correction scale - dose per MD ___ Insulin Delivery method - Pens - order Insulin Pen Needle 31G X 4 mm MISC ___ Insulin Delivery method - Syringe - order Insulin syringe Needle U 100 31G X 15/64 0.5ml Diabetes Education / HCP follow -up : Follow up in [place] area __ Would recommend follow -up education at outpatient diabetes education at [facility]. An ordered is needed for this service and can be placed via EHR. Discharge Navigator --- Med Reconciliation -- New orders for discharge tab -- search diabetic ed - REF20 - [facility] - review and sign _x__ Follow -up with HCP / PCP within one week. Jayleen Dunn RN * Cory Orellana MD - 04/15/2019 8:19 AM EDT General Surgery: Daily Progress Note PATIENT NAME: Paty Cardona TODAY'S DATE: 04/15/2019, 8:19 AM SUBJECTIVE: Pt seen and examined. Pain improved today. Still mild tenderness. CT showed interstitial pancreatitis. Labs improving. OBJECTIVE: VITALS: BP 137/73 Pulse 71 Temp 98.9 F (37.2 C) (Oral) Resp 16 Ht 5' 9 (1.753 m) Wt 246 lb 11.2 oz (111.9 kg) SpO2 94% BMI 36.43 kg/m INTAKE/OUTPUT: Intake/Output Summary (Last 24 hours) at 04/15/2019818 Last data filed at 04/15/2019 0808 Gross per 24 hour Intake 5067 ml Output 3050 ml Net 2017 ml PHYSICAL EXAM: General Appearance: awake, alert, oriented, in no acute distress HEENT: Normocephalic, atraumatic, mucus membranes moist Heart: Regular rate and rhythm Lungs: normal effort with symmetric rise and fall of chest wall Abdomen: soft, nondistended, tender epigastric area and LUQ improved. No guarding or rebound tenderness Extremities: No cyanosis, pitting edema, rashes noted. Skin: Skin color, texture, turgor normal. No rashes or lesions. Data: CBC: Recent Labs 04/14/1960704/15/19550 WBC 8.1 10.0 HGB 13.1 13.7 PLT See Reflexed IPF Result See Reflexed IPF Result Chemistry: Recent Labs 04/13/1963804/14/1960704/15/1953 NA -- -- 131* K -- -- 3.9 CL -- -- 99 CO2 -- -- 22 GLUCOSE -- -- 128* BUN -- -- 9 CREATININE -- -- 0.48* ANIONGAP -- -- 10 LABGLOM -- -- >60 GFRAA -- -- >60 CALCIUM -- -- 8.0* CAION 1.00* 1.02* 1.03* PHOS -- -- 3.0 Hepatic: Recent Labs 04/13/1963804/15/19 0551 AST 36 23 ALT 103* 54* ALKPHOS 41 52 BILITOT 0.87 1.17 BILIDIR 0.33* 0.40* Coagulation: Recent Labs 04/13/19 0639 04/15/19 0551 PROT 5.7* 5.7* Radiology Review: ASSESSMENT: Active Hospital Problems Diagnosis Date Noted New onset type 2 diabetes mellitus (HCC): 04/2019 [E11.9] 04/14/2019 Hypoalbuminemia [E88.09] 04/12/2019 Thrombocytopenia (HCC) [D69.6] 04/12/2019 Choledocholithiasis [K80.50] 04/12/2019 Acute pancreatitis [K85.90] 04/11/2019 Hypokalemia [E87.6] 04/11/2019 Hyperglycemia [R73.9] 04/11/2019 Hypocalcemia [E83.51] 04/11/2019 Transaminasemia [R74.0] 04/11/2019 Hypertension [I10] Cholelithiasis [K80.20] GERD (gastroesophageal reflux disease) [K21.9] HLD (hyperlipidemia) [E78.5] Gallstone pancreatitis [K85.10] Alcohol use [Z72.89] 1. 63 y.o. male with gallstone pancreatitis; s/p ERCP Plan: 1. Continue medical management and supportive care per primary team 2. Follow up AM labs 3. Pt will need cholecystectomy when pancreatitis resolves - currently improving 4. Will continue to follow along Patient seen and examined. Agree with above A/P. CT reviewed. Still some significant pancreatic inflammation. Will monitor labs-if continues to normalize, can look at eric in 48-72 hours * Leslie Nichole, RN - 04/14/2019 4:17 PM EDT Pt c/o feeling congested in chest. Raised Printer gave and instructed of on use of incentive spirometer. Ptdid return demonstration and reached >2000. * Joseph Contreras DO - 04/14/2019 3:47 PM EDT [facility] IN-PATIENT SERVICE [facility] Progress Note 04/14/2019 3:55 PM Name: Paty Cardona Acct: [id number] Room: 0441/0441-01 Day: 3 Admit Date: 04/11/2019 4:05 PM PCP: Rodolfo Ahmadi DO Code Status: Full Code Subjective: C/C: Pain Interval History Status: Up to chair Less epigastric and left upper quadrant pain Has had some nausea Doing fair with clear liquid diet Data Base Updates: Calcium, Ion 1.02Low WBC 8.1 k/uL RBC 4.20Low m/uL Hemoglobin 13.1 Platelet, Fluorescence 106Low Brief History: The patient is a 63 y.o. male who is admitted to the hospital for the management of: Gallstone pancreatitis Patient admitted from outlying ER with Patient c/o increasing abdominal pain since early this morning. Patient reports similar episode 2dago that resolved after 2h and taking jose seltzer. Patient reports no improvement this morning after taking jose seltzer. Patient reports assoc nausea and vomiting. Patient points to mid stomach as area of pain along with L lower and R upper abdomen. Patient denies fever/cp/sob/diarrhea/edema/rash/hematuria/numbness/tingling/focal weakness/back pain. Last po intake yesterday evening. The patient reports he has had at least 2 prior episodes of pancreatitis He has a known history of gallstones The patient denies any known precipitants, but does acknowledge that he was eating spicy wings He does acknowledge that he drinks beer couple times a week He drinks up to 10 beers Thiamine and Ativan ordered Initial database has revealed: ALT 284High U/L AST 250High Calcium 8.5Low Potassium 3.2 Electrolyte abnormalities have been addressed BUN 11 mg/dL CREATININE 0.50Low CT abdomen: Significant edema along the pancreatic body is appreciated there is some involvement of the tail. Findings are compatible with pancreatitis. I do not see hemorrhagic transformation or necrosis. Please correlate with amylase and lipase levels. ERCP 04/12 Findings: The papilla was located in the duodenal diverticulum, but I was able to cannulate right away using the wire, the initial cholangiogram revealed floating filling defects CBD was around 9 mm in diameter, the cystic duct was filling the gallbladder started to fail A 8 mm sphincterotomy was performed. The sphincterotome was exchanged, over a wire for a 9 12 above injection balloon. Multiple balloon sweeps were performed revealing 3 nice round stones 2 of them were yellow, one was multicolored witha black and yellow. A terminal balloon occlusion cholangiongram clean CBD and intrahepatic ducts, cystic duct was filling gallbladder started to felt Follow-up CT 04/14: Impression: Acute interstitial edematous pancreatitis without evidence of complication. Interval ERCP with expected pneumobilia. Fatty liver. Blood sugars have been elevated Hemoglobin A1C 6.6High Sliding scale coverage ordered Surgical consultation in progress Anticipate cholecystectomy Medications: Allergies: No Known Allergies Current Meds: Scheduled Meds: calcium gluconate IVPB 1 g Intravenous Once insulin lispro 0-6 Units Subcutaneous TID WC insulin lispro 0-3 Units Subcutaneous Nightly sodium chloride flush 10 mL Intravenous 2 times per day famotidine (PEPCID) injection 20 mg Intravenous BID enoxaparin 40 mg Subcutaneous Daily sodium chloride flush 10 mL Intravenous BID thiamine (VITAMIN B1) IVPB 100 mg Intravenous Q24H Continuous Infusions: lactated ringers 250 mL/hr at 04/14/19 0458 PRN Meds: albuterol, sodium chloride flush, potassium chloride, magnesium sulfate, acetaminophen, HYDROmorphone OR HYDROmorphone, ondansetron, hydrALAZINE, promethazine, LORazepam, metoprolol Data: Past Medical History: has a past medical history of Cholelithiasis, GERD (gastroesophageal reflux disease), HLD (hyperlipidemia), HLD (hyperlipidemia), Hypertension, New onset type 2 diabetes mellitus (HCC): 04/2019, and Pancreatitis. Social History: reports that he quit smoking about 27 years ago. His smoking use included cigarettes. He has never used smokeless tobacco. He reports that he drinks about 30.0 standard drinks of alcohol per week. He reports that he does not use drugs. Family History: Family History Problem Relation Age of Onset Diabetes Mother Liver Disease Father Vitals: BP (!) 142/80 Pulse 77 Temp 100.2 F (37.9 C) (Oral) Resp 14 Ht 5' 9 (1.753 m) Wt 248 lb 1.6 oz (112.5 kg) SpO2 92% BMI 36.64 kg/m Temp (24hrs), Av.2 F (37.3 C), Min:98.4 F (36.9 C), Max:100.2 F (37.9 C) Recent Labs 04/13/19 0922 04/13/19 1622 04/13/19200404/14/19 1217 POCGLU 174* 132* 154* 122* I/O (24Hr): Intake/Output Summary (Last 24 hours) at 04/14/2019 1555 Last data filed at 04/14/2019 0555 Gross per 24 hour Intake 5836 ml Output 1600 ml Net 4236 ml Review of Systems: Review of Systems Constitutional: Positive for appetite change (Improved). Negative for chills, diaphoresis and fever. Respiratory: Negative for cough and shortness of breath. Cardiovascular: Negative for chest pain and palpitations. Gastrointestinal: Positive for abdominal pain (Less epigastric pain, radiating to left upper quadrant and back) and nausea. Negative for vomiting. Genitourinary: Negative for flank pain and hematuria. Physical Examination: Physical Exam Constitutional: He is oriented to person, place, and time. No distress. HENT: Head: Normocephalic. Nose: Nose normal. Eyes: Conjunctivae are normal. No scleral icterus. Neck: Neck supple. No tracheal deviation present. Cardiovascular: Normal rate and regular rhythm. Pulmonary/Chest: Effort normal and breath sounds normal. No respiratory distress. He has no wheezes. He has no rales. He exhibits no tenderness. Abdominal: Soft. Bowel sounds are normal. He exhibits no distension. There is no tenderness. There is no rebound and no guarding. Negative Livingston sign Musculoskeletal: He exhibits no edema or tenderness. Neurological: He is alert and oriented to person, place, and time. He exhibits normal muscle tone. No tremor/asterixis Skin: Skin is warm and dry. He is not diaphoretic. Vitals reviewed. Labs: Hematology: Recent Labs 04/12/1952604/14/19 0608 WBC 9.1 8.1 HGB 16.1 13.1 HCT 48.2 41.0 PLT See Reflexed IPF Result See Reflexed IPF Result INR 1.2 -- Chemistry: Recent Labs 04/11/19 1817 04/12/1952604/13/19 0639 04/14/19 0608 NA 141 138 -- -- K 4.4 4.2 -- -- CL 103 103 -- -- CO2 20 21 -- -- GLUCOSE 173* 159* -- -- BUN 11 15 -- -- CREATININE 0.50* 0.56* -- -- MG -- 1.7 -- -- CALCIUM 8.5* 7.6* -- -- CAION -- 1.01* 1.00* 1.02* PHOS -- 2.9 -- -- Recent Labs 04/11/19 1817 04/12/19 0527 04/12/19 1637 04/13/19 0639 04/14/19 0608 PROT 7.0 6.0* -- 5.7* -- LABALBU 4.0 3.2* -- 2.9* -- LABA1C -- -- 6.6* -- -- AST 250* 113* -- 36 -- ALT 284* 192* -- 103* -- ALKPHOS 64 49 -- 41 -- BILITOT 1.34* 1.33* -- 0.87 -- BILIDIR -- -- -- 0.33* -- AMYLASE -- 436* -- -- 149* LIPASE 1,552* 875* -- 288* 251* TRIG -- 95 -- -- -- No results found for: SPECIAL No results found for: POCPH, PHART, PH, POCPCO2, XDT9FEO, PCO2, POCPO2, PO2ART, PO2, POCHCO3, JCL8WVY, HCO3, NBEA, PBEA, BEART, BE, THGBART, THB, TSY5BTS, LGVG9RLH, M7MWGBFI, O2SAT, FIO2 Radiology: Mri Abdomen W Wo Contrast Mrcp Result Date: 04/11/2019 1. Acute interstitial edematous pancreatitis as described. 2. Cholelithiasis as described. 3. Normal caliber bile ducts however 2 adjacent filling defects as measured above visualized in the distal/terminal common bile duct suggesting choledocholithiasis. 4. Heterogeneous hepatic fatty infiltration. The findings were sent to the Radiology Results Communication Center at 9:02 pm on 04/11/2019to becommunicated to a licensed caregiver. Assessment: Primary Problem Gallstone pancreatitis Active Hospital Problems Diagnosis Date Noted New onset type 2 diabetes mellitus (HCC): 04/2019 [E11.9] 04/14/2019 Hypoalbuminemia [E88.09] 04/12/2019 Thrombocytopenia (HCC) [D69.6] 04/12/2019 Choledocholithiasis [K80.50] 04/12/2019 Acute pancreatitis [K85.90] 04/11/2019 Hypokalemia [E87.6] 04/11/2019 Hyperglycemia [R73.9] 04/11/2019 Hypocalcemia [E83.51] 04/11/2019 Transaminasemia [R74.0] 04/11/2019 Hypertension [I10] Cholelithiasis [K80.20] GERD (gastroesophageal reflux disease) [K21.9] HLD (hyperlipidemia) [E78.5] Gallstone pancreatitis [K85.10] Alcohol use [Z72.89] Plan: Status post ERCP Surgery evaluation in progress: Anticipate cholecystectomy Hydration Pain management Antiacids Correct electrolyte abnormalities Calcium supplementation as needed: 2 g calcium gluconate ordered Alcohol abstinence Thiamine Ativan Glycemic contol - monitor and control blood sugars Accu-Cheks before meals at bedtime Appears to have diabetes type 2 new-onset Diabetic education Blood Pressure - Monitor and control Monitor platelets, Anemia w/u on outpatient basis is suggested IP CONSULT TO GI IP CONSULT TO GENERAL SURGERY Joseph Contreras DO 04/14/2019 3:55 PM * Leslie Nichole RN - 04/14/2019 9:20 AM EDT Pt to CT via stretcher. Omnipaque completed. * Jena Nunez DO - 04/14/2019 6:45 AM EDT General Surgery: Daily Progress Note PATIENT NAME: Paty Cardona TODAY'S DATE: 04/14/2019, 6:45 AM SUBJECTIVE: Pt seen and examined. Still have left sided abd pain this AM. Some nausea. No RUQ pain. Ambulating.Labs pending. OBJECTIVE: VITALS: BP (!) 144/81 Pulse 62 Temp 98.4 F (36.9 C) (Oral) Resp 17 Ht 5' 9 (1.753 m) Wt 248 lb 1.6 oz (112.5 kg) SpO2 93% BMI 36.64 kg/m INTAKE/OUTPUT: Intake/Output Summary (Last 24 hours) at 04/14/2019644 Last data filed at 04/14/2019 05 Gross per 24 hour Intake 5846 ml Output 2750 ml Net 3096 ml PHYSICAL EXAM: General Appearance: awake, alert, oriented, in no acute distress HEENT: Normocephalic, atraumatic, mucus membranes moist Heart: Regular rate and rhythm Lungs: normal effort with symmetric rise and fall of chest wall Abdomen: soft, nondistended, tender epigastric area and LUQ. No guarding or rebound tenderness Extremities: No cyanosis, pitting edema, rashes noted. Skin: Skin color, texture, turgor normal. No rashes or lesions. Data: CBC: Recent Labs 04/12/19526 WBC 9.1 HGB 16.1 PLT See Reflexed IPF Result Chemistry: Recent Labs 04/11/19181604/12/1952604/13/1939 04/14/19 0608 NA 141 138 -- -- K 4.4 4.2 -- -- CL 103 103 -- -- CO2 20 21 -- -- GLUCOSE 173* 159* -- -- BUN 11 15 -- -- CREATININE 0.50* 0.56* -- -- MG -- 1.7 -- -- ANIONGAP 18* 14 -- -- LABGLOM >60 >60 -- -- GFRAA >60 >60 -- -- CALCIUM 8.5* 7.6* -- -- CAION -- 1.01* 1.00* 1.02* PHOS -- 2.9 -- -- Hepatic: Recent Labs 04/11/19181604/12/1952604/13/19638 AST 250* 113* 36 ALT 284* 192* 103* ALKPHOS 64 49 41 BILITOT 1.34* 1.33* 0.87 BILIDIR -- -- 0.33* Coagulation: Recent Labs 04/11/19181604/12/1952604/13/19638 PROT 7.0 6.0* 5.7* INR -- 1.2 -- Radiology Review: ASSESSMENT: Active Hospital Problems Diagnosis Date Noted Hypoalbuminemia [E88.09] 04/12/2019 Thrombocytopenia (HCC) [D69.6] 04/12/2019 Choledocholithiasis [K80.50] 04/12/2019 Acute pancreatitis [K85.90] 04/11/2019 Hypokalemia [E87.6] 04/11/2019 Hyperglycemia [R73.9] 04/11/2019 Hypocalcemia [E83.51] 04/11/2019 Transaminasemia [R74.0] 04/11/2019 Hypertension [I10] Cholelithiasis [K80.20] GERD (gastroesophageal reflux disease) [K21.9] HLD (hyperlipidemia) [E78.5] Gallstone pancreatitis [K85.10] Alcohol use [Z72.89] 1. 63 y.o. male with gallstone pancreatitis; s/p ERCP Plan: 1. Continue medical management and supportive care per primary team 2. Follow up AM labs 3. Pt will need cholecystectomy when pancreatitis resolves - currently starch mangle tender 4. Increase in abd pain and change in exam - will order stat CT abd with IV and PO constrast 5. Will continue to follow along Attending Physician Statement I have discussed the case with Dr. Kuhn, including pertinent history and exam findings with the resident. I have seen and examined the patient and the spangler elements of the encounter have been performed by me. I agree with the assessment, plan and orders as documented by the resident. * Sil Sommer OT - 04/13/2019 3:07 PM EDT Occupational Therapy Occupational Therapy Not Seen Note DATE: 04/13/2019 Name: Paty Cardona : 1955 Patient not available for Occupational Therapy due to: Pt independent with functional mobility and functional tasks. Pt with no OT acute care needs at this time, will defer OT eval. RN in agreement * BenJoseph cordova Alejandro, DO - 04/13/2019 2:30 PM EDT [facility] IN-PATIENT SERVICE [facility] Progress Note 04/13/2019 2:30 PM Name: Paty Cardona Acct: [id number] Room: [address] [place] [address] IP Day: 2 Admit Date: 04/11/2019 4:05 PM PCP: Rodolfo Ahmadi DO Code Status: Full Code Subjective: C/C: Pain Interval History Status: Appetite improved He is hungry Not happy with clear liquid diet Less pain BP has been labile Data Base Updates: Glucose 174High Glucose 148High Calcium, Ion 1.00Low ALT 103High U/L AST 36 Lipase 288High Brief History: The patient is a 63 y.o. male who is admitted to the hospital for the management of: Gallstone pancreatitis Patient admitted from outlying ER with Patient c/o increasing abdominal pain since early this morning. Patient reports similar episode 2dago that resolved after 2h and taking jose seltzer. Patient reports no improvement this morning after taking jose seltzer. Patient reports assoc nausea and vomiting. Patient points to mid stomach as area of pain along with L lower and R upper abdomen. Patient denies fever/cp/sob/diarrhea/edema/rash/hematuria/numbness/tingling/focal weakness/back pain. Last po intake yesterday evening. The patient reports he has had at least 2 prior episodes of pancreatitis He has a known history of gallstones The patient denies any known precipitants, but does acknowledge that he was eating spicy wings He does acknowledge that he drinks beer couple times a week He drinks up to 10 beers Initial database has revealed: ALT 284High U/L AST 250High Calcium 8.5Low Potassium 3.2 Glucose 173High mg/dL Glucose 254 BUN 11 mg/dL CREATININE 0.50Low CT abdomen: Significant edema along the pancreatic body is appreciated there is some involvement of the tail. Findings are compatible with pancreatitis. I do not see hemorrhagic transformation or necrosis. Please correlate with amylase and lipase levels. ERCP 04/12 Findings: The papilla was located in the duodenal diverticulum, but I was able to cannulate right away using the wire, the initial cholangiogram revealed floating filling defects CBD was around 9 mm in diameter, the cystic duct was filling the gallbladder started to fail A 8 mm sphincterotomy was performed. The sphincterotome was exchanged, over a wire for a 9 12 above injection balloon. Multiple balloon sweeps were performed revealing 3 nice round stones 2 of them were yellow, one was multicolored witha black and yellow. A terminal balloon occlusion cholangiongram clean CBD and intrahepatic ducts, cystic duct was filling gallbladder started to felt Medications: Allergies: No Known Allergies Current Meds: Scheduled Meds: insulin lispro 0-6 Units Subcutaneous TID WC insulin lispro 0-3 Units Subcutaneous Nightly sodium chloride flush 10 mL Intravenous 2 times per day famotidine (PEPCID) injection 20 mg Intravenous BID enoxaparin 40 mg Subcutaneous Daily sodium chloride flush 10 mL Intravenous BID thiamine (VITAMIN B1) IVPB 100 mg Intravenous Q24H Continuous Infusions: lactated ringers 250 mL/hr at 04/12/19 1525 PRN Meds: albuterol, sodium chloride flush, potassium chloride, magnesium sulfate, acetaminophen, HYDROmorphone OR HYDROmorphone, ondansetron, hydrALAZINE, promethazine, LORazepam, metoprolol Data: Past Medical History: has a past medical history of Cholelithiasis, GERD (gastroesophageal reflux disease), HLD (hyperlipidemia), HLD (hyperlipidemia), Hypertension, and Pancreatitis. Social History: reports that he quit smoking about 27 years ago. His smoking use included cigarettes. He has never used smokeless tobacco. He reports that he drinks about 30.0 standard drinks of alcohol per week. He reports that he does not use drugs. Family History: Family History Problem Relation Age of Onset Diabetes Mother Liver Disease Father Vitals: BP 131/80 Pulse 74 Temp 98.1 F (36.7 C) (Oral) Resp 16 Ht 5' 9 (1.753 m) Wt 239 lb (108.4 kg) SpO2 90% BMI 35.29 kg/m Temp (24hrs), Av.6 F (37 C), Min:98.1 F (36.7 C), Max:99.4 F (37.4 C) Recent Labs 04/12/19203404/12/194 04/13/19 0332 04/13/19 0922 POCGLU 262* 229* 148* 174* I/O (24Hr): Intake/Output Summary (Last 24 hours) at 04/13/2019 1430 Last data filed at 04/13/2019 0918 Gross per 24 hour Intake 2870 ml Output Net 2870 ml Review of Systems: Review of Systems Constitutional: Positive for appetite change (Improved). Negative for chills, diaphoresis and fever. Respiratory: Negative for cough and shortness of breath. Cardiovascular: Negative for chest pain and palpitations. Gastrointestinal: Positive for abdominal pain (Less epigastric pain ) and nausea. Negative for vomiting. Genitourinary: Negative for flank pain and hematuria. Physical Examination: Physical Exam Constitutional: He is oriented to person, place, and time. No distress. HENT: Head: Normocephalic. Nose: Nose normal. Eyes: Conjunctivae are normal. No scleral icterus. Neck: Neck supple. No tracheal deviation present. Cardiovascular: Normal rate and regular rhythm. Pulmonary/Chest: Effort normal and breath sounds normal. No respiratory distress. He has no wheezes. He has no rales. He exhibits no tenderness. Abdominal: Soft. Bowel sounds are normal. He exhibits no distension. There is no tenderness. There is no rebound and no guarding. Negative Livingston sign Musculoskeletal: He exhibits no edema or tenderness. Neurological: He is alert and oriented to person, place, and time. He exhibits normal muscle tone. No tremor/asterixis Skin: Skin is warm and dry. He is not diaphoretic. Vitals reviewed. Labs: Hematology: Recent Labs 04/12/19526 WBC 9.1 HGB 16.1 HCT 48.2 PLT See Reflexed IPF Result INR 1.2 Chemistry: Recent Labs 04/11/19181604/12/1952604/13/19638 NA 141 138 -- K 4.4 4.2 -- CL 103 103 -- CO2 20 21 -- GLUCOSE 173* 159* -- BUN 11 15 -- CREATININE 0.50* 0.56* -- MG -- 1.7 -- CALCIUM 8.5* 7.6* -- CAION -- 1.01* 1.00* PHOS -- 2.9 -- Recent Labs 04/11/19181604/12/1952604/13/1939 PROT 7.0 6.0* 5.7* LABALBU 4.0 3.2* 2.9* AST 250* 113* 36 ALT 284* 192* 103* ALKPHOS 64 49 41 BILITOT 1.34* 1.33* 0.87 BILIDIR -- -- 0.33* AMYLASE -- 436* -- LIPASE 1,552* 875* 288* TRIG -- 95 -- No results found for: SPECIAL No results found for: POCPH, PHART, PH, POCPCO2, RGS4MIS, PCO2, POCPO2, PO2ART, PO2, POCHCO3, SGS4QWN, HCO3, NBEA, PBEA, BEART, BE, THGBART, THB, JIP0UNW, VLHI5EFO, T0TXKMTI, O2SAT, FIO2 Radiology: Mri Abdomen W Wo Contrast Mrcp Result Date: 04/11/2019 1. Acute interstitial edematous pancreatitis as described. 2. Cholelithiasis as described. 3. Normal caliber bile ducts however 2 adjacent filling defects as measured above visualized in the distal/terminal common bile duct suggesting choledocholithiasis. 4. Heterogeneous hepatic fatty infiltration. The findings were sent to the Radiology Results Communication Center at 9:02 pm on 04/11/2019to becommunicated to a licensed caregiver. Assessment: Primary Problem Gallstone pancreatitis Active Hospital Problems Diagnosis Date Noted Hypoalbuminemia [E88.09] 04/12/2019 Thrombocytopenia (HCC) [D69.6] 04/12/2019 Choledocholithiasis [K80.50] 04/12/2019 Acute pancreatitis [K85.90] 04/11/2019 Hypokalemia [E87.6] 04/11/2019 Hyperglycemia [R73.9] 04/11/2019 Hypocalcemia [E83.51] 04/11/2019 Transaminasemia [R74.0] 04/11/2019 Hypertension [I10] Cholelithiasis [K80.20] GERD (gastroesophageal reflux disease) [K21.9] HLD (hyperlipidemia) [E78.5] Gallstone pancreatitis [K85.10] Alcohol use [Z72.89] Plan: Status post ERCP Surgery evaluation in progress: Anticipate cholecystectomy Hydration Pain management Antiacids Correct electrolyte abnormalities Calcium supplementation as needed Alcohol abstinence Thiamine Ativan Glycemic contol - monitor and control blood sugars Accu-Cheks before meals at bedtime Awaiting hemoglobin A1c Blood Pressure - Monitor and control Monitor platelets, Anemia w/u on outpatient basis is suggested IP CONSULT TO GI IP CONSULT TO GENERAL SURGERY Joseph Contreras DO 04/13/2019 2:30 PM * Nathaniel Eubanks, PROJECT ECONOMIST - KNOTTING MACHINE OPERATOR PORTABLE - 04/13/2019 12:03 PM EDT [facility] Progress Note Paty Cardona is a 63 y.o. male patient. Hospitalization Day:2 Chief consult reason: Suspect GS Pancreatits Subjective: Pt seen and examined. Pt had ERCP completed yesterday with extraction of stone. No significant pain today, no nausea or vomiting. Pt resting comfortably in bed. GS plans for possible surgery on Monday once Pancreatits resolves. LFT's and lipase improving ERCP 04/12/[address] Fenton: Findings: The papilla was located in the duodenal diverticulum, but I was able to cannulate right away using the wire, the initial cholangiogram revealed floating filling defects CBD was around 9 mm in diameter, the cystic duct was filling the gallbladder started to fail A 8 mm sphincterotomy was performed. The sphincterotome was exchanged, over a wire for a 9 12 above injection balloon. Multiple balloon sweeps were performed revealing 3 nice round stones 2 of them were yellow, one was multicolored witha black and yellow. A terminal balloon occlusion cholangiongram clean CBD and intrahepatic ducts, cystic duct was filling gallbladder started to felt The duodenoscope was removed and the patient tolerated the procedure well. The pancreatic duct was not manipulated during the procedure. Post sedation note :The patient's SPO2 remained above 90% throughout the procedure.the vital signs remained stable , and no immediate complication form the procedure noted, patient will be ready for d/c when criteria is met . Plan: Follow the liver enzymes and the pancreatic enzymes Consider cholecystectomy as per surgery LS: BP 131/80 Pulse 74 Temp 98.1 F (36.7 C) (Oral) Resp 16 Ht 5' 9 (1.753 m) Wt 239 lb (108.4 kg) SpO2 90% BMI 35.29 kg/m TEMPERATURE: Current - Temp: 98.1 F (36.7 C); Max - Temp Av.1 F (37.8 C) Min: 98.1 F (36.7 C)Max: 100.5 F (38.1 C) Physical Assessment: General appearance: alert, cooperative and no distress Mental Status: oriented to person, place and time and normal affect Lungs: clear to auscultation bilaterally, normal effort Heart: regular rate and rhythm, no murmur Abdomen: soft, nontender, nondistended, normal bowel sounds, no masses, hepatomegaly, splenomegaly Extremities: no edema, redness, tenderness in the calves Skin: no gross lesions, rashes, induration Data Review: LABS and IMAGING: CBC Recent Labs 04/12/19526 WBC 9.1 HGB 16.1 MCV 94.5 RDW 12.4 PLT See Reflexed IPF Result ANEMIA STUDIES No results for input(s): LABIRON, TIBC, FERRITIN, [id number], FOLATE, OCCULTBLD in the last 72 hours. BMP Recent Labs 04/11/19181604/12/19526 NA 141 138 K 4.4 4.2 CL 103 103 CO2 20 21 BUN 11 15 CREATININE 0.50* 0.56* GLUCOSE 173* 159* CALCIUM 8.5* 7.6* LFTS Recent Labs 04/11/19181604/12/1952604/13/19 0639 ALKPHOS 64 49 41 ALT 284* 192* 103* AST 250* 113* 36 BILITOT 1.34* 1.33* 0.87 BILIDIR -- -- 0.33* LABALBU 4.0 3.2* 2.9* AMYLASE/LIPASE/AMMONIA Recent Labs 04/11/19181604/12/1952604/13/19 0639 AMYLASE -- 436* -- LIPASE 1,552* 875* 288* Acute Hepatitis Panel No results found for: HEPBSAG, HEPCAB, HEPBIGM, HEPAIGM HCV Genotype No results found for: HEPATITISCGENOTYPE HCV Quantitative No results found for: HCVQNT LIVER WORK UP: AFP No results found for: AFP Alpha 1 antitrypsin No results found for: A1A Anti - Liver/Kidney Ab No results found for: LIVER-KIDNEYMICROSOMALAB ANATOLIY No results found for: ANATOLIY AMA No results found for: MITOAB ASMA No results found for: SMOOTHMUSCAB Ceruloplasmin No results found for: CERULOPLSM Celiac panel No results found for: TISSTRNTIIGG, TTGIGA, IGA PT/INR Recent Labs 04/12/19 0527 PROTIME 12.9* INR 1.2 Cancer Markers: CEA: No results for input(s): CEA in the last 72 hours. Ca 125: No results for input(s): CA125 in the last 72 hours. Ca 19-9: Invalid input(s): CA19-9 AFP: No results for input(s): AFP in the last 72 hours. Lactic acid:Invalid input(s): LACTIC ACID Radiology Review: No results found. Principal Problem: Gallstone pancreatitis Active Problems: Acute pancreatitis Hypertension Cholelithiasis GERD (gastroesophageal reflux disease) HLD (hyperlipidemia) Hypokalemia Hyperglycemia Hypocalcemia Transaminasemia Alcohol use Hypoalbuminemia Thrombocytopenia (HCC) Choledocholithiasis Resolved Problems: * No resolved hospital problems. * GI Assessment: 1. Acute GS Pancreatitis with edema in the body that extends into the tail per CT scan and MRI. Lipase trend 2,635>1,552>875. Pain was 8/10 last night. -Pt received 2 liters LR last night followed by LR at 250 ml/hr. NPO. LFT's and lipase improving -04/13/2019 S/P ERCP with stone extraction. LFT's and Lipase improving 2. Choledocholithiasis 3. Cholelithiasis-mgt per Plan of care: 1. LR at 125 ml/hr 2. Clear liquid diet-may advance if ok per GS 3. GI will s/o Thank you for allowing me to participate in the care of your patient. Please feel free to contact me with any questions or concerns. Nathaniel Eubanks APRN - [facility] [phone] Associated attestation - Rachel Rivers MD - 04/13/2019 8:35 PM EDT GI Attending Attestation I have discussed the care of Paty Cardona and I have examined the patient myself and taken rosand hpi , including pertinent history and exam findings, with the author of this note . I have reviewed the spangler elements of all parts of the encounter with the nurse practitioner/resident. I agree with the assessment, plan and orders as documented by the above health care provider GS Pancreatitis s/p ERCP sphincterotomy and stone extractions, clinically improved from GI standpoint. Lipase, LFTS, and abdominal exam improved today. Planned for CCY, timing per General Surgery. Will s/o, contact for any questions. Electronically signed by Rachel Rivers MD * Lori Whitfield, PT - 04/13/2019 10:51 AM EDT Physical Therapy DATE: 04/13/2019 NAME: Paty Cardona : 1955 Patient not seen this date for Physical Therapy due to: [] Blood transfusion in progress [] Hemodialysis [] Patient Declined [] Spine Precautions [] Strict Bedrest [] Surgery/ Procedure [] Testing [] Other [x] PT being discontinued at this time. Patient independent. No further needs. Pt reports independent with all functional mobility, reports he has not therapy needs at this time. [] PT being discontinued at this time as the patient has been transferred to palliative care. No further needs. Lori Whitfield PT * Jena Nunez, DO - 04/13/2019 9:19 AM EDT General Surgery: Daily Progress Note PATIENT NAME: Paty Cardona TODAY'S DATE: 04/13/2019, 9:19 AM SUBJECTIVE: Pt seen and examined. Still having significant epigastric pain. Feels bloated. ERCP yesterday with removal of stones. LFT's improved. OBJECTIVE: VITALS: BP 131/80 Pulse 74 Temp 98.1 F (36.7 C) (Oral) Resp 16 Ht 5' 9 (1.753 m) Wt 239 lb (108.4 kg) SpO2 90% BMI 35.29 kg/m INTAKE/OUTPUT: Intake/Output Summary (Last 24 hours) at 04/13/2019918 Last data filed at 04/13/2019 0918 Gross per 24 hour Intake 3570 ml Output Net 3570 ml PHYSICAL EXAM: General Appearance: awake, alert, oriented, in no acute distress HEENT: Normocephalic, atraumatic, mucus membranes moist Heart: Regular rate and rhythm Lungs: normal effort with symmetric rise and fall of chest wall Abdomen: soft, nondistended, tender epigastric area. No guarding or rebound tenderness Extremities: No cyanosis, pitting edema, rashes noted. Skin: Skin color, texture, turgor normal. No rashes or lesions. Data: CBC: Recent Labs 04/12/19526 WBC 9.1 HGB 16.1 PLT See Reflexed IPF Result Chemistry: Recent Labs 04/11/19181604/12/1952604/13/19638 NA 141 138 -- K 4.4 4.2 -- CL 103 103 -- CO2 20 21 -- GLUCOSE 173* 159* -- BUN 11 15 -- CREATININE 0.50* 0.56* -- MG -- 1.7 -- ANIONGAP 18* 14 -- LABGLOM >60 >60 -- GFRAA >60 >60 -- CALCIUM 8.5* 7.6* -- CAION -- 1.01* 1.00* PHOS -- 2.9 -- Hepatic: Recent Labs 04/11/19181604/12/1952604/13/19 0639 AST 250* 113* 36 ALT 284* 192* 103* ALKPHOS 64 49 41 BILITOT 1.34* 1.33* 0.87 BILIDIR -- -- 0.33* Coagulation: Recent Labs 04/11/19181604/12/1952604/13/19 0639 PROT 7.0 6.0* 5.7* INR -- 1.2 -- Radiology Review: ASSESSMENT: Active Hospital Problems Diagnosis Date Noted Hypoalbuminemia [E88.09] 04/12/2019 Thrombocytopenia (HCC) [D69.6] 04/12/2019 Choledocholithiasis [K80.50] 04/12/2019 Acute pancreatitis [K85.90] 04/11/2019 Hypokalemia [E87.6] 04/11/2019 Hyperglycemia [R73.9] 04/11/2019 Hypocalcemia [E83.51] 04/11/2019 Transaminasemia [R74.0] 04/11/2019 Hypertension [I10] Cholelithiasis [K80.20] GERD (gastroesophageal reflux disease) [K21.9] HLD (hyperlipidemia) [E78.5] Gallstone pancreatitis [K85.10] Alcohol use [Z72.89] 1. 63 y.o. male with gallstone pancreatitis; s/p ERCP Plan: 1. Continue medical management and supportive care per primary team 2. Pt will need cholecystectomy when pancreatitis resolves 3. Will continue to follow along Attending Physician Statement I have discussed the case with Dr. Kuhn, including pertinent history and exam findings with the resident. I have seen and examined the patient and the spangler elements of the encounter have been performed by me. I agree with the assessment, plan and orders as documented by the resident. * Diann Ac RN - 04/13/2019 5:44 AM EDT Pt up ambulating well in halls states that he feels like he has trapped gas and anytime he takes a drink he feels bloated. * Diann Ac RN - 04/12/2019 7:20 PM EDT Pt was requesting to have the stones returned to him that were removed during his ERCP. Pathology was called and endoscopy but both calls went to voicemail as it was out of operating hours. * Dorina Turner - 04/12/2019 3:26 PM EDT Occupational Therapy Occupational Therapy Not Seen Note DATE: 04/12/2019 Name: Paty Cardona : 1955 Patient not available for Occupational Therapy due to: Other: Endoscopy Next Scheduled Treatment: 04/13/2019 * Joseph Contreras, DO - 04/12/2019 2:28 PM EDT [facility] IN-PATIENT SERVICE [facility] Progress Note 04/12/2019 2:42 PM Name: Paty Cardona Acct: [id number] Room: [address] [place] [address] IP Day: 1 Admit Date: 04/11/2019 4:05 PM PCP: Rodolfo Ahmadi DO Code Status: Full Code Subjective: C/C: Pain Interval History Status: NPO Feels better Less pain BP has been labile Data Base Updates: INR 1.2 Calcium, Ion 1.01Low Glucose 159High mg/dL BUN 15 mg/dL CREATININE 0.56Low Platelet, Fluorescence 126Low Amylase 436High Lipase 875High ALT 192High AST 113High Brief History: The patient is a 63 y.o. male who is admitted to the hospital for the management of: Gallstone pancreatitis Patient admitted from outlying ER with Patient c/o increasing abdominal pain since early this morning. Patient reports similar episode 2dago that resolved after 2h and taking jose seltzer. Patient reports no improvement this morning after taking jose seltzer. Patient reports assoc nausea and vomiting. Patient points to mid stomach as area of pain along with L lower and R upper abdomen. Patient denies fever/cp/sob/diarrhea/edema/rash/hematuria/numbness/tingling/focal weakness/back pain. Last po intake yesterday evening. The patient reports he has had at least 2 prior episodes of pancreatitis He has a known history of gallstones The patient denies any known precipitants, but does acknowledge that he was eating spicy wings He does acknowledge that he drinks beer couple times a week He drinks up to 10 beers Initial database has revealed: ALT 284High U/L AST 250High Calcium 8.5Low Potassium 3.2 Glucose 173High mg/dL Glucose 254 BUN 11 mg/dL CREATININE 0.50Low CT abdomen: Significant edema along the pancreatic body is appreciated there is some involvement of the tail. Findings are compatible with pancreatitis. I do not see hemorrhagic transformation or necrosis. Please correlate with amylase and lipase levels. ERCP 04/12 Findings: The papilla was located in the duodenal diverticulum, but I was able to cannulate right away using the wire, the initial cholangiogram revealed floating filling defects CBD was around 9 mm in diameter, the cystic duct was filling the gallbladder started to fail A 8 mm sphincterotomy was performed. The sphincterotome was exchanged, over a wire for a 9 12 above injection balloon. Multiple balloon sweeps were performed revealing 3 nice round stones 2 of them were yellow, one was multicolored witha black and yellow. A terminal balloon occlusion cholangiongram clean CBD and intrahepatic ducts, cystic duct was filling gallbladder started to felt Medications: Allergies: No Known Allergies Current Meds: Scheduled Meds: calcium gluconate IVPB 1 g Intravenous Once sodium chloride flush 10 mL Intravenous 2 times per day famotidine (PEPCID) injection 20 mg Intravenous BID [START ON 04/13/2019] enoxaparin 40 mg Subcutaneous Daily influenza virus vaccine 0.5 mL Intramuscular Once sodium chloride flush 10 mL Intravenous BID thiamine (VITAMIN B1) IVPB 100 mg Intravenous Q24H insulin lispro 0-6 Units Subcutaneous Q6H Continuous Infusions: lactated ringers sodium chloride lactated ringers 250 mL/hr at 04/12/19 0743 PRN Meds: lidocaine PF, midazolam, albuterol, indomethacin, sodium chloride flush, potassium chloride, magnesium sulfate, acetaminophen, HYDROmorphone OR HYDROmorphone, ondansetron, hydrALAZINE, promethazine, LORazepam, metoprolol Data: Past Medical History: has a past medical history of Cholelithiasis, GERD (gastroesophageal reflux disease), HLD (hyperlipidemia), HLD (hyperlipidemia), Hypertension, and Pancreatitis. Social History: reports that he quit smoking about 27 years ago. His smoking use included cigarettes. He has never used smokeless tobacco. He reports that he drinks about 30.0 standard drinks of alcohol per week. He reports that he does not use drugs. Family History: Family History Problem Relation Age of Onset Diabetes Mother Liver Disease Father Vitals: BP 130/75 Pulse 92 Temp 99.3 F (37.4 C) (Temporal) Resp 30 Ht 5' 9 (1.753 m) Wt 239 lb 11.2 oz (108.7 kg) SpO2 92% BMI 35.40 kg/m Temp (24hrs), Av F (37.8 C), Min:97.7 F (36.5 C), Max:100.5 F (38.1 C) Recent Labs 04/11/19 2133 04/12/19 0250 04/12/19 1103 POCGLU 158* 168* 137* I/O (24Hr): Intake/Output Summary (Last 24 hours) at 04/12/2019 1442 Last data filed at 04/12/2019 1406 Gross per 24 hour Intake 4196 ml Output 600 ml Net 3596 ml Review of Systems: Review of Systems Constitutional: Positive for appetite change (Improved) and fatigue. Negative for chills, diaphoresis and fever. Respiratory: Negative for cough and shortness of breath. Cardiovascular: Negative for chest pain and palpitations. Gastrointestinal: Positive for abdominal pain (Less epigastric and left upper quadrant aching ) and nausea. Negative for vomiting. Genitourinary: Negative for flank pain and hematuria. Physical Examination: Physical Exam Constitutional: No distress. HENT: Head: Normocephalic. Nose: Nose normal. Eyes: Conjunctivae are normal. No scleral icterus. Neck: Neck supple. No tracheal deviation present. Cardiovascular: Normal rate and regular rhythm. Pulmonary/Chest: Effort normal and breath sounds normal. No respiratory distress. He has no wheezes. He has no rales. He exhibits no tenderness. Abdominal: Soft. Bowel sounds are normal. He exhibits no distension. There is no tenderness. There is no rebound and no guarding. Negative Livingston sign Musculoskeletal: He exhibits no edema or tenderness. Neurological: He exhibits normal muscle tone. Less somnolent No tremor/asterixis Skin: Skin is warm and dry. He is not diaphoretic. Vitals reviewed. Labs: Hematology: Recent Labs 04/12/19 05 WBC 9.1 HGB 16.1 HCT 48.2 PLT See Reflexed IPF Result INR 1.2 Chemistry: Recent Labs 04/11/19 1817 04/12/19 05 NA 141 138 K 4.4 4.2 CL 103 103 CO2 20 21 GLUCOSE 173* 159* BUN 11 15 CREATININE 0.50* 0.56* MG -- 1.7 CALCIUM 8.5* 7.6* CAION -- 1.01* PHOS -- 2.9 Recent Labs 04/11/19 1817 04/12/19 0527 PROT 7.0 6.0* LABALBU 4.0 3.2* AST 250* 113* ALT 284* 192* ALKPHOS 64 49 BILITOT 1.34* 1.33* AMYLASE -- 436* LIPASE 1,552* 875* TRIG -- 95 No results found for: SPECIAL No results found for: POCPH, PHART, PH, POCPCO2, NXC1RLM, PCO2, POCPO2, PO2ART, PO2, POCHCO3, CGC6WQI, HCO3, NBEA, PBEA, BEART, BE, THGBART, THB, MHN3JYR, HMTU7JFW, F1QQWZOC, O2SAT, FIO2 Radiology: Mri Abdomen W Wo Contrast Mrcp Result Date: 04/11/2019 1. Acute interstitial edematous pancreatitis as described. 2. Cholelithiasis as described. 3. Normal caliber bile ducts however 2 adjacent filling defects as measured above visualized in the distal/terminal common bile duct suggesting choledocholithiasis. 4. Heterogeneous hepatic fatty infiltration. The findings were sent to the Radiology Results Communication Center at 9:02 pm on 04/11/2019to becommunicated to a licensed caregiver. Assessment: Primary Problem Gallstone pancreatitis Active Hospital Problems Diagnosis Date Noted Hypoalbuminemia [E88.09] 04/12/2019 Thrombocytopenia (HCC) [D69.6] 04/12/2019 Choledocholithiasis [K80.50] 04/12/2019 Acute pancreatitis [K85.90] 04/11/2019 Hypokalemia [E87.6] 04/11/2019 Hyperglycemia [R73.9] 04/11/2019 Hypocalcemia [E83.51] 04/11/2019 Transaminasemia [R74.0] 04/11/2019 Hypertension [I10] Cholelithiasis [K80.20] GERD (gastroesophageal reflux disease) [K21.9] HLD (hyperlipidemia) [E78.5] Gallstone pancreatitis [K85.10] Alcohol use [Z72.89] Plan: Status post ERCP Surgery evaluation in progress: Anticipate cholecystectomy Hydration Pain management Antiacids Correct electrolyte abnormalities Alcohol abstinence Thiamine Ativan Glycemic contol - monitor and control blood sugars Blood Pressure - Monitor and control Monitor platelets, Anemia w/u on outpatient basis is suggested IP CONSULT TO GI IP CONSULT TO GENERAL SURGERY Joseph Contreras DO 04/12/2019 2:42 PM * Carl Tello RN - 04/12/2019 2:05 PM EDT 17 ml conray dye used. * Heydi Trevino RCP - 04/12/2019 11:26 AM EDT Smoking Cessation - topics covered [] Health Risks [] Benefits of Quitting [] Smoking Cessation [] Patient has no history of tobacco use [x] Patient is former smoker. Patient quit in 1991. [x] No need for tobacco cessation education. [] Booklet given [] Patient verbalizes understanding. [] Patient denies need for tobacco cessation education. [] Unable to meet with patient today. Will follow up as able. HEYDI TREVNIO 11:27 AM * Lyn Awad, PT - 04/12/2019 10:42 AM EDT Physical Therapy DATE: 04/12/2019 NAME: Paty Cardona : 1955 Patient not seen this date for Physical Therapy due to: [] Blood transfusion in progress [] Hemodialysis [x] Patient Declined Pt states he doesn't want to get up until after his procedure ERCP) d/t takingpain meds and not eating or drinking. He is afraid he will be too dizzy. [] Spine Precautions [] Strict Bedrest [] Surgery/ Procedure [] Testing [] Other [] PT being discontinued at this time. Patient independent. No further needs. [] PT being discontinued at this time as the patient has been transferred to palliative care. No further needs. LYN AWAD PT * Leslie Nichole RN - 04/11/2019 7:04 PM EDT Home meds verified with [facility] * Leslie Nichole RN - 04/11/2019 6:45 PM EDT Pt to MRI via stretcher. * Leslie Nichole RN - 04/11/2019 4:10 PM EDT Pt arrived via EMS on stretcher as direct admit from [facility] in [place]. Pt responds to voice. Vitals stable. Will proceed with admission questions when arrives. documented in this encounter Assessments Diagnosis Acute gallstone pancreatitis- Primary Acute pancreatitis Hypertension Unspecified essential hypertension Cholelithiasis Calculus of gallbladder without mention of cholecystitis or obstruction GERD (gastroesophageal reflux disease) Esophageal reflux HLD (hyperlipidemia) Other and unspecified hyperlipidemia Hypokalemia Hypopotassemia Hyperglycemia Other abnormal glucose Hypocalcemia Transaminasemia Nonspecific elevation of levels of transaminase or lactic acid dehydrogenase (LDH) Alcohol use Hypoalbuminemia Other disorders of plasma protein metabolism Thrombocytopenia (HCC) Thrombocytopenia, unspecified Choledocholithiasis Calculus of bile duct without mention of cholecystitis or obstruction New onset type 2 diabetes mellitus (HCC): 04/2019 Advance Directives Documents on File Type Date Recorded Patient Mri Tech Expl anation Advance Directives and Living Will Power of Oral Health Therapist Latest Code Status on File Code Status Date Activated Date Inactivated Comments Full Code 04/11/2019 4:25 PM Advance Directive Response Recorded Date/ Time Advance Directives No January 25 4:01pm Advance Directive Response Recorded Date/ Time Advance Directives No January 25 3:01pm Summary Purpose Family History Relationship Condition Age at Onset Recorded Date/T lenny father Diabetes mellitus Unknown Not Specified Diabetes mellitus Unknown Relationship Condition Age at Onset Recorded Date/T lenny father Diabetes mellitus Unknown Not Specified Diabetes mellitus Unknown brother History of stroke Unknown Arthritis Unknown Relationship Condition Age at Onset Recorded Date/T lenny father Diabetes mellitus Unknown mother Diabetes mellitus Unknown brother History of stroke Unknown Arthritis Unknown Chief Complaint and Reason for Visit Chief Complaint R74.8 Chief Complaint R74.8 Elevated Liver Enzymes Chief Complaint R74.8 Elevated Liver Enzymes k75.81 r74.8 Fatty Liver, Cirrhosis Chief Complaint 3 Month Follow Up - Left A Message For T Worsening Arthritis Chief Complaint Worsening Arthritis Polyarthralgia/MEDS 3 MONTH CHECK UP K74.30 Reason for Visit Chronic venous insuf ficiency Cirrhosis of liver without ascites Controlled diabetes mellitus with hyperglycemia Essential hypertension Primary osteoarthritis of knees, bilateral Chief Complaint Worsening Arthritis Polyarthralgia/MEDS 3 MONTH CHECK UP K74.30 6 month follow up Reason for Visit Chronic venous insuf ficiency Cirrhosis of liver without ascites Controlled diabetes mellitus with hyperglycemia Essential hypertension Primary osteoarthritis of knees, bilateral Liver cirrhosis Metabolic dysfunction-associated steatohepatitis (MASH) Portal hypertension Splenomegaly Thrombocytopenia Chief Complaint Worsening Arthritis Polyarthralgia/MEDS 3 MONTH CHECK UP K74.[address] DM2 Fatty Liver Reason for Visit Liver cirrhosis Metabolic dysfunction-associated steatohepatitis (MASH) Portal hypertension Splenomegaly Thrombocytopenia Chief Complaint Polyarthralgia/MEDS 3 MONTH CHECK UP K74.[address] DM2 Fatty Liver Dm2 follow up - fatty liver 6 wks Reason for Visit Liver cirrhosis Metabolic dysfunction-associated steatohepatitis (MASH) Portal hypertension Splenomegaly Thrombocytopenia Chief Complaint Dm2 follow up - fatt y liver 6 wks 4 Month Check Up Reason for Visit Chronic venous insuf ficiency Cirrhosis of liver without ascites Essential hypertension Hypertension Metabolic dysfunction-associated steatohepatitis (MASH) Primary osteoarthritis of knees, bilateral Thrombocytopenia Type 2 diabetes mellitus with hyperglycemia Medicare annual wellness visit, subsequent Screening PSA (prostate specific antigen) Reason for Referral Reason Mr. Cardona is jovana ng referred with primary arthritis involving B/L CMC joint of the thumb and B/L knees. Diagnosis 1 Primary osteoarthrit is of both knees (M17.0) Diagnosis 2 Primary osteoarthrit is of both first carpometacarpal joints (M18.0) Referral Organization [facility] Janeen ambrose Referring Provider First Name Rodolfo Referring Provider Last Name Galdino Referring Provider Specialty Internal Me dicine Referred Organization [facility] Referred Provider Dakota Levy Referred Address [address] [place] [phone] Referred Provider Specialty Orthopaedic Surgery Referral Priority Routine General Notes Mr. Cardona was pr eviously seen by Dr. Levy for left shoulder pain. He now has persistent pain and stiffness involving B/L CMC joints of the thumb and B/L knees. He has been instructed on ROM exercises, use of ice and braces. Unfortunately, due to comorbidities, Tylenol and NSAIDs could cause side effects. I am referring Mr. Cardona for alternative treatments, such as injections with corticosteroids and Synvisc. Clinical Notes Include XR B/L knees Additional Source Comments Reason for Visit (unrecogniz ed section and content) Status Reason Specialty Diagnoses / Procedures Referre d By Contact Referred To Contact Diagnoses Acute pancreatitis, unspecified complication status, unspecified pancreatitis type gallstone stones/ pancreatitis Joseph Contreras DO [facility] [place] [address] [facility] (unrecognized sect ion and content) No Status Records FoundNo Status Records FoundNo Status Records Found INFORMATION SOURCE (unrecogn ized section and content) DATE CREATED AUTHOR 04/19/2019 [facility] DATE CREATED AUTHOR AUTHOR'S ORGANIZ ATION 05/13/2022 [facility] DATE CREATED AUTHOR AUTHOR'S ORGANIZ ATION 09/24/2023 [facility] Care Teams (unrecognized sec tion and content) Team Status: Active Member Role Status Garrett Ahmadi DO Primary Care Provider Active Team Status: Inactive Member Role Status Garrett Ahmadi DO Primary Care Provider Active Jojo Stearns MD Attending Provider Active Team Status: Inactive Member Role Status Garrett Stearns MD Attending Provider Active Rodolfo Ahmadi DO Primary Care Provider Active Team Status: Inactive Member Role Status Garrett Ahmadi DO Primary Care Provider Active Osmar Mathis MD Attending Provider Active Team Status: Inactive Member Role Status Garrett Ahmadi DO Attending Provider Active Sta rt: May 26, 2023 End: May 26, 2023 Team Status: Inactive Member Role Status Garrett Ahmadi DO Attending Provider Active Sta rt: July 11, 2023 End: July 11, 2023 Team Status: Inactive Member Role Status Garrett Ahmadi DO Primary Care Provider Active Start: August 22, 2023 End: August 22, 2023 Cory Zeng MD Attending Provider Active St art: August 22, 2023 End: August 22, 2023 Team Status: Inactive Member Role Status Garertt Ahmadi DO Primary Care Provide r, Attending Provider Active Start: September 01, 2023 End: September 01, 2023 Team Status: Inactive Member Role Status Garrett Ahmadi DO Primary Care Provider Active Start: September 20, 2023 End: September 20, 2023 Jojo Stearns MD Attending Provider Active Start: September 20, 2023 End: September 20, 2023 Team Status: Inactive Member Role Status Dates Rodolfo Ahamdi DO Primary Care Provider Active Start: September 21, 2023 End: September 21, 2023 Jojo Stearns MD Attending Provider Active Start: September 21, 2023 End: September 21, 2023 Team Status: Active Member Role Status Dates Rodolfo Ahmadi DO Primary Care Provider Active Start: September 22, 2023 Jojo Stearns MD Attending Provider Active Start: September 22, 2023 Team Status: Inactive Member Role Status Dates Rodolfo Ahmadi DO Primary Care Provider Active Start: September 27, 2023 End: September 27, 2023 KATHRINE Gonzalez Attending Provider Active Start: September 27, 2023 End: September 27, 2023 Team Status: Inactive Member Role Status Garrett Ahmadi DO Primary Care Provider Active Start: November 08, 2023 End: November 08, 2023 KATHRINE Gonzalez Attending Provider Active Start: November 08, 2023 End: November 08, 2023 Team Status: Inactive Member Role Status Dates Rodolfo Ahmadi DO Primary Care Provide r, Attending Provider Active Start: January 05, 2024 End: January 05, 2024 Goals (unrecognized section and content) Goals may be documented in a n alternate section FOR RECORDS PERTAINING TO PATIENTS WHO ARE OR HAVE BEEN ENROLLED IN A CHEMICAL DEPENDENCY/SUBSTANCEABUSE PROGRAM, SOME INFORMATION MAY BE OMITTED. This clinical summary was aggregated from multiple sources. Caution should be exercised in using it in the provision of clinical care. This summary normalizes information from multiple sources, and as a consequence, information in this document may materially change the coding, format and clinical context of patient data. In addition, data may be omitted in some cases. CLINICAL DECISIONS SHOULD BE BASED ON THE PRIMARY CLINICAL RECORDS. [facility]. provides no warranty or guarantee of the accuracy or completeness of information in this document.
[2024-01-05 16:21] LABS: Basophils Percent Auto 0.5 % (0.2-2.0); Eosinophils Absolute Auto 0.2 10^3/uL (0.0-0.7); Eosinophils Percent Auto 2.6 % (0.9-7.0); Hematocrit 45.1 % (42.0-54.0); Hemoglobin 15.5 g/dL (14.0-18.0); Immature Granulocytes Abs Auto 0.03 10^3/uL (0.00-0.03); Immature Granulocytes Pct Auto 0.5 % (0.0-0.5); Lymphocytes Absolute Auto 1.5 10^3/uL (1.2-3.8); Lymphocytes Percent Auto 24.8 % (20.5-60.0); Mean Corpuscular HGB Conc 34.4 g/dL (29.9-35.2); Mean Corpuscular Hemoglobin 31.9 pg (25.9-34.0); Mean Corpuscular Volume 92.8 fL (80.0-94.0); Mean Platelet Volume 10.1 fL (9.5-13.5); Monocytes Absolute Auto 0.8 10^3/uL (0.3-0.8); Monocytes Percent Auto 12.4 % (1.7-12.0); Neutrophils Absolute Auto 3.7 10^3/uL (1.4-6.5); Neutrophils Percent Auto 59.2 % (43.0-75.0); Platelet Count 101 10^3/uL (150-450); Red Blood Count 4.86 10^6/uL (4.70-6.10); Red Cell Distribution Width 12.9 % (11.0-15.0); White Blood Count 6.2 10^3/uL (4.0-11.0)
[2024-01-05 16:24] LABS: Microalbumin Urine Random 2.3 mg/dL (<=30.0)
[2024-01-05 16:27] LABS: Alanine Aminotransferase 40 U/L (16-63); Albumin Globulin Ratio 1.1; Albumin Level 3.8 g/dL (3.4-5.0); Alkaline Phosphatase 84 U/L (46-116); Anion Gap 11.2; Aspartate Amino Transferase 26 U/L (15-37); Bilirubin Total 0.7 mg/dL (0.2-1.0); Calcium 8.6 mg/dL (8.5-10.1); Carbon Dioxide 31.1 mmol/L (21.0-32.0); Chloride 108 mmol/L (98-107); Chol HDL Ratio 4.3; Cholesterol 214 mg/dL (<=200); Estimated GFR (African America >60 (>=60); Estimated GFR (Non-African Ame >60 (>=60); Globulin 3.6 g/dL; Glucose 85 mg/dL (74-106); HDL Cholesterol 50 mg/dL (40-60); Potassium 4.3 mmol/L (3.5-5.1); Sodium 146 mmol/L (136-145); Total Protein 7.4 g/dL (6.4-8.2); Triglycerides 124 mg/dL (<=150); VLDL CHOLESTEROL 24.8 mg/dL
[2024-01-05 16:42] LABS: Estimated Average Glucose 126 mg/dL
[2024-01-05 17:30] LABS: Prostate Specific Antigen Scrn 0.47 ng/mL (<=4.00)
== END 2024-01-05 15:45 | disposition home or self-care (01) ==
PROVIDERS: PCP Internal Medicine; Visit Provider Internal Medicine
DX: D69.6 Thrombocytopenia, unspecified (principal); E11.65 Type 2 diabetes mellitus with hyperglycemia; E78.00 Pure hypercholesterolemia, unspecified; K75.81 Nonalcoholic steatohepatitis (NASH); I10 Essential (primary) hypertension; Z12.5 Encounter for screening for malignant neoplasm of prostate
CPT/HCPCS: 36415; 80053; 80061; 82043; 83036; 85025; G0103

== ENCOUNTER 2024-08-20 10:52 | Outpatient (OUT) | payer MEDICARE, SELFPAY ==
--- OUTSIDE RECORDS SUMMARY | 2024-08-20 11:11 | XMS_ITS | CCD ---
Author Organization [facility] Care Team Providers Care Vulcanizing Press Operator Name Role Phone Rodolfo Ahmadi Primary Care Provider [phone] GEMA MCKEON Referring Unavailable LEONELA FENTON Consulting [...] DO Rodolfo Ahmadi Primary Care Provider MD Jojo Stearns Attending Provider [phone] Asaad, Imad Unavailable MD Osmar Mathis Attending Provider DO Rodolfo Ahmadi Primary Care Provider MD Cory Zeng Attending Provider [phone] DO Rodolfo Ahmadi Primary Care Provider MD Cory Zeng Attending Provider MD Jojo Stearns Attending Provider DO Rodolfo Ahmadi Primary Care Provider MD Jojo Stearns Attending Provider Rodolfo Ahmadi Primary Care Unavailable Asaad, Imad Admitting Unavailable Asaad, Imad Attending Unavailable Rodolfo Ahmadi Primary Care Unavailable Asaad, Imad Admitting Unavailable Hermesad, Imad Attending Unavailable Rodolfo Ahmadi Primary Care Unavailable Cory Zeng Admitting Unavailable Cory Zeng Attending Unavailable Osmar Mathis Admitting UnavailOsmar Velez Attending UnavailRodolfo Nunes Primary Care Unavailable Rodolfo Ahmadi Primary Care Unavailable Jojo Stearns Admitting Unavailable Jojo Stearns Attending Unavailable Rodolfo Ahmadi DO Primary Care Provider Jojo Stearns MD Attending Provider Allergies Allergy Classification Reported Allergen(s) Allergy Type Date of Onset Reaction(s) Facility (3 sources) patient allergy list reviewed by nurse or physicia Propensity to adverse reactions Comment:Done [employer] Liaison Other Medications Current Medications Medication Drug Class(es) [...] aspirin 81 mg delayed release oral tablet (9 sources) Platelet Aggregation Inhibitor, Nonsteroidal Anti-inflammatory Drug Start: 09-21-2023 take 1 tablet by mouth once daily Aspirin 81 mg tablet,delayed release (DR/EC) Active 81 MG PO Daily September 20, 2023 11:00pm take 1 tablet by mouth once celsa [...] mg oral tablet (20 sources) Sulfonylurea Start: 03-27-2024 take 1 tablet by mouth twice daily at breakfast Glipizide 10 mg tablet Active 0 .ROUTE .COMPLEX 180 March 27, 2024 7:25pm TAKE 1 TABLET BY MOUTH TWICE DAILY 30 MINUTES PRIOR TO BREAKFAST AND SUPPER Start: 01-05-2024 End: 03-27-2024 take 1 tablet by mouth once daily Glipizide 10 mg tablet Discontinued 10 MG PO Daily January 05, 2024 2:20pm March 27, 2024 7:25pm Start: 01-05-2024 End: 01-05-2024 take 1 tablet by mouth twice daily Glipizide 10 mg tablet Discontinued 10 MG PO Twice daily January 04, 2024 11:00pm January 05, 2024 2:20pm Start: 07-15-2022 End: 09-21-2023 take 1 tablet by mouth twice daily Glipizide 10 mg tablet Discontinued 10 MG PO Twice daily March 29, 2023 11:00pm September 21, 2023 8:41am Start: 07-15-2022 take 2 tablets by mo ut once daily 30 minutes before breakfast glipiZIDE 10 MG 2 tablet 30 minutes before breakfast Orally Once a day for 30 day(s) Jul, Active glucagon (rdna) 1 mg injection (1 source) Antihypoglycemic Agent Start: 04-15-2019 glucago n (rDNA) injection 1 mg 150 ml glucose 50 mg/ml injection (2 [...] 1 Hours, PRN, Other, Magnesium Replacement, Starting Patrica 04/11/19 at 1625 Mg Lab Replacement Action [...] Patients with CrCl less than 30 mL/min. 5 ml metoprolol tartrate 1 mg/ml injection (1 source) beta-Adrenergic Brooke Start: 04-11-2019 metoprolol (LOPRESSOR) injection 5 mg nabumetone 500 mg oral tablet (5 sources) Nonsteroidal Anti-inflammatory Drug Start: 01-05-2024 take 1 tablet by mouth twice daily Nabumetone 500 mg tablet Active 500 MG PO Twice daily January 04, 2024 11:00pm ondansetron 4 mg oral tablet (2 sources) Serotonin-3 Receptor Antagonist Start: 04-17-2019 take 1 tablet by mouth three times daily as needed for nausea ondansetron (ZOFRAN) 4 MG tablet Take 1 tablet by mouth 3 times daily as needed for Nausea or Vomiting 30 tablet 0 04/17/2019 Active Start: 04-11-2019 4 mg, Intraven ous, EVERY 6 HOURS PRN, Nausea, Starting Patrica 04/11/19 at 1625 pantoprazole 20 mg delayed [...] at 100 mL/hr, PRN, Potassium Replacement, Starting Patrica 04/11/19 at 1625 K Lab Replacement Action [...] Start: 04-11-2019 promethazine (PHENERGAN) injection 12.5 mg Semaglutide (2 sources) Start: 05-17-2024 Semaglutide (Ozempic) 0.25 mg or 0.5 mg (2 mg/3 mL) pen injector Active 0.25 MG SUBCUT every week 3 May 17, 2024 12:28pm for 4 weeks Start: 05-17-2024 End: 05-17-2024 Semaglutide (Ozempic) 0.25 m g or 0.5 mg (2 mg/3 mL) pen injector Discontinued 0.25 MG SUBCUT every week 3 May 17, 2024 12:00am May 17, 2024 12:29pm for 4 weeks telmisartan 20 mg oral tablet (1 source) Angiotensin 2 Receptor Brooke Start: 05-17-2024 take 1 tablet by mouth once daily Telmisartan 20 mg tablet Active 20 MG PO Daily May 17, 2024 12:00am thiamine (B-1) 100 mg in sodium chloride 0.9 % 100 mL IVPB (1 source) Start: 04-11-2019 thiamine (B-1) 100 mg in sodium chloride 0.9 % 100 mL IVPB Completed/Discontinued Medications Medication Drug Class(es) Dates Sig (Normalized) Sig (Original) [id number] 200 actuat albuterol 0.09 mg/actuat metered dose inhaler (20 sources) beta2-Adrenergic Agonist Start: 08-31-2023 End: 09-21-2023 take 1 puff(s) by inhalation every four hours as needed Albuterol Sulfate (Ventolin Hfa) 90 mcg/actuation HFA aerosol inhaler Discontinued 2 PUFF INHALATION Every 4 hours as needed August 31, 2023 12:00am September 21, 2023 8:46am Start: 04-12-2019 albuterol (PRO VENTIL) nebulizer solution [...] (20 sources) Angiotensin Converting Enzyme Inhibitor Start: 07-15-2022 End: 09-21-2023 take 1 tablet by mouth once daily Benazepril 10 mg tablet Discontinued 10 MG PO Daily August 31, 2023 12:00am September 21, 2023 8:45am take 1 tablet by mouth once celsa y benazepril (LOTENSIN) 5 MG tablet Take 5 mg by mouth daily 0 Active benzonatate 200 mg oral capsule (20 sources) Non-narcotic Antitussive Start: 07-15-2022 End: 09-21-2023 take 1 capsule by mouth three times daily as needed Benzonatate 200 mg capsule Discontinued 200 MG PO Three times daily as needed August 31, 2023 12:00am September 21, 2023 8:44am calcium chloride 0.0014 meq/ml / potassium chloride 0.004 meq/ml / sodium [...] Receptor Antagonist Start: 08-31-2023 End: 09-21-2023 take 1 tablet by mouth once daily Desloratadine 5 mg tablet,disintegrati ng Discontinued 5 MG PO Daily August 31, 2023 12:00am September 21, 2023 8:44am 2 ml fentaNYL 0.05 mg/ml injection (1 source) Opioid Agonist Start: 04-17-2019 End: 04-17-2019 fentaNYL (SUBLIMAZE) injection 50 mcg gadoteridol (PROHANCE) injection 20 mL (1 source) Start: 04-11-2019 End: 04-11-2019 gadoteridol (PROHANCE) injection 20 mL Glucosamine (8 sources) Start: 09-21-2023 End: 03-21-2024 glucosamine HCl Discontinued PO September 20, 2023 11:00pm March 21, 2024 9:34am Start: 09-21-2023 End: 03-21-2024 glucosamine HCl Discontinued PO September 21, 2023 12:00am March 21, 2024 10:34am Start: 09-21-2023 glucosamine HC l Active PO September 21, 2023 12:00am hydrocortisone 25 mg/ml topical cream (20 sources) Corticosteroid Start: 02-22-2023 End: 09-21-2023 Hydrocortisone (Anusol-Hc) 2.5 % cream with perineal applicator Discontinued 1 APPLIC TOPICAL Twice daily as needed August 31, 2023 12:00am September 21, 2023 8:45am Start: 02-22-2023 Anusol-HC 2.5 % 1 application Externally Twice a day as needed for pain and itching for 30 days Jan, Active Iohexol (1 source) Radiographic Contrast Agent Start: 04-14-2019 End: 04-14-2019 iohexol (OMNIPAQUE 350) solution 75 mL iohexol (OMNIPAQUE 240) injection 50 mL (1 source) Start: 04-14-2019 End: 04-14-2019 iohexol (OMNIPAQUE 240) injection 50 mL meloxicam (13 sources) Nonsteroidal Anti-inflammatory Drug Start: 09-21-2023 End: 01-05-2024 meloxicam Discontinued PO September 20, 2023 11:00pm January 05, 2024 2:08pm Start: 09-21-2023 End: 01-05-2024 meloxicam Discontinued PO [facility] 2023 12:00am January 05, 2024 3:08pm Start: 09-21-2023 meloxicam Acti ve PO September 21, 2023 12:00am Start: 11-22-2022 take 1 tablet by fred th every twenty-four hours Meloxicam 15 MG 1 tablet Orally Once a day October, Active metFORMIN hydrochloride 1000 mg oral tablet (20 sources) Biguanide Start: 10-25-2023 End: 05-17-2024 take 1 tablet by mouth twice daily Metformin 1,000 mg tablet Discontinued 0 .ROUTE .COMPLEX 60 October 25, 2023 5:57am May 17, 2024 12:24pm Take 1 tablet by mouth twice daily Start: 09-21-2023 End: 10-25-2023 take 1 tablet by mouth once daily Metformin 1,000 mg tablet Discontinued 1000 MG PO Daily September 20, 2023 11:00pm October 25, 2023 5:58am Start: 04-13-2023 End: 09-21-2023 take 1 tablet by mouth twice daily Metformin 1,000 mg tablet Discontinued 1000 MG PO Twice daily August 31, 2023 12:00am September 21, 2023 8:47am Start: 02-13-2023 End: 08-31-2023 take 1 tablet by mouth at bedtime Metformin 500 mg Tablet Discontinued 500 MG PO Bedtime February 12, 2023 11:00pm August 31, 2023 9:42am take 1 tablet by fred th twice daily metFORMIN HCl 1000 MG 1 tablet Orally Twice daily Active Sodium Chloride (4 sources) Start: 04-17-2019 End: 04-17-2019 sodium chloride (PF) 0.9 % i njection Start: 04-11-2019 10 mL, Intrave nous, EVERY 12 HOURS SCHEDULED (2 times per day), First dose on Mon04/11/19 at 2100 Start: 04-11-2019 sodium chlorid e flush 0.9 % injection 10 mL Start: 04-11-2019 take 10 mL intraveno us route once as needed 10 mL, Intravenous, PRN, Line Care, After every IV line use, Starting Mon04/11/19 at 1625 Problems Active Problems Problem Classification [...] bronchitis] 08-31-2023 Chronic Coagulation and hemorrhagic disorders (20 sources) Thrombocytopenic disorder; Translations: [Thrombocytopenia, unspecified] Chronic [...] hypercholesterolemia] Onset: 7 04-18-2019 Chronic Esophageal disorders (20 sources) Gastroesophageal reflux disease; Translations: [Gastro-esophageal reflux [...] sources) Cirrhosis - non-alcoholic; 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 (THOMASON)] Chronic Hepatitis (12 sources) Chronic viral hepatitis; Translations: [Chronic viral [...] site] Chronic Other aftercare (1 source) Other custodial (current) drug therapy Episodic Other and unspecified [...] and spasm] Episodic Other connective tissue disease (20 sources) Muscle pain; Translations: [Myalgia, other site] [...] Episodic Other diseases of veins and lymphatics (7 sources) Venous insufficiency (chronic) (peripheral); Translations: [Venous (peripheral) insufficiency, unspecified] 09-01-2023 Episodic Other disorders of stomach and duodenum (3 sources) Disorder of function of stomach; Translations: [Dyspepsia and other specified disorders of function of stomach] Episodic Other gastrointestinal disorders (3 sources) Irritable bowel syndrome with diarrhea; Translations: [Irritable bowel syndrome with diarrhea] 03-21-2024 Chronic Other gastrointestinal disorders (1 source) Irritable bowel syndrome with diarrhea; Translations: [Irritable bowel syndrome with diarrhea] Onset: 4 Chronic Other gastrointestinal disorders (7 sources) Splenomegaly, not elsewhere classified; Translations: [Splenomegaly] Episodic Other gastrointestinal disorders (8 sources) Splenomegaly; Translations: [Splenomegaly, not elsewhere classified] 09-21-2023 Episodic Other gastrointestinal disorders (1 source) Diarrhea, unspecified; Translations: [Diarrhea, unspecified] Onset: 4 Episodic Other injuries and conditions due to [...] of liver] 08-31-2023 Chronic Other liver diseases (20 sources) Unspecified cirrhosis of liver; Translations: [Cirrhosis of liver without mention of alcohol] Onset: 3 Chronic Other liver diseases (3 sources) Steatosis of liver; Translations: [Fatty (change of) liver, not elsewhere classified] Chronic Other liver diseases (19 sources) Portal hypertension; Translations: [Portal hypertension] 08-31-2023 Chronic Other liver diseases (7 sources) Portal hypertension; Translations: [Portal hypertension] Chronic Other liver diseases (2 sources) Enzyme level - finding; Translations: [Transaminasemia] Onset: 9 04-18-2019 Episodic Other liver diseases (17 sources) Elevated liver enzymes level; Translations: [Abnormal levels of other serum enzymes] Episodic Other liver diseases (4 sources) Abnormal levels of other serum enzymes; Translations: [Elevated liver enzymes] Episodic Other nervous system disorders (3 sources) Persistent pain following procedure; Translations: [Other acute postprocedural pain] Episodic Other non-traumatic joint disorders (3 sources) Lower limb joint arthritis; Translations: [Osteoarthrosis, unspecified whether generalized or localized, lower leg] Onset: 7 Chronic Other non-traumatic joint disorders (20 sources) Multiple joint pain; Translations: [Pain in unspecified joint] Episodic Other nutritional; endocrine; and metabolic disorders [...] nutritional; endocrine; and metabolic disorders (20 sources) Severe obesity; Translations: [Morbid (severe) obesity due to excess calories] Chronic Other nutritional; endocrine; and metabolic disorders (2 sources) Morbid (severe) obesity due to excess calories Chronic Other nutritional; endocrine; and metabolic disorders (2 sources) Body mass index (BMI) 36.0-36.9, adult Chronic Other nutritional; endocrine; and metabolic disorders (10 sources) Metabolic syndrome X; Translations: [Metabolic syndrome] [...] to pollen] Chronic Other upper respiratory disease (9 sources) Allergic rhinitis; Translations: [Allergic rhinitis, unspecified] [...] signs] Episodic Rheumatoid arthritis and related disease (8 sources) Inflammatory polyarthropathy; Translations: [Inflammatory polyarthropathy] Chronic [...] [Elevation of levels of liver transaminase levels] Past or Other Problems Problem Classification Problem [...] [Malaise and fatigue] Onset: 10-03-2016 Episodic Other non-traumatic joint disorders (2 sources) Pain in unspecified joint; Translations: [Pain in unspecified joint] Onset: 08-22-2023 Episodic Other non-traumatic joint disorders (3 sources) [...] Test Name Value Interpretation Reference Range Facility Campy coli+jejuni BD MaxOrde red By: Jojo Stearns on 03-26-2024 C. coli+jejuni tuf gene MARIBEL+probe Ql (Stl) Negative Negative [facility] Comment on above: Campylobacter test i ncludes C. jejuni and C. coli. C. coli+jejuni tuf gene MARIBEL+probe Ql (Stl) Campy coli+jejuni BD Max Negative [facility] Comment on above: Campylobacter test i ncludes C. jejuni and C. coli. Cryptosporidium parv+homin B D MaxOrdered By: Jojo Stearns on 03-26-2024 C. parvum+hominis DNA MARIBEL+probe Ql (Stl) Negative Negative [facility] Comment on above: Cryptosporidium test includes C. hominis and C. parvum. C. parvum+hominis DNA MARIBEL+probe Ql (Stl) Cryptosporidium parv+homin BD Max Negative [facility] Comment on above: Cryptosporidium test includes C. hominis and C. parvum. Entamoeba histolytica BD Max Ordered By: Jojo Stearns on 03-26-2024 E. histolytica DNA MARIBEL+probe Ql (Stl) Negative Negative [facility] Comment on above: Testing performed by RT-PCR E. histolytica DNA MARIBEL+probe Ql (Stl) Entamoeba histolytica BD Max Negative [facility] Comment on above: Testing performed by RT-PCR Escherichia coli Stx1 and St x2 toxin stx1+stx2 genes [Presence] in Stool by MARIBEL withOrdered By: Imad Asaad on 03-26-2024 E. coli stx1+stx2 genes MARIBEL+probe Ql (Stl) Negative Negative [facility] Giardia ricardo BD MaxOrdered By : Imad Asaad on 03-26-2024 G. lamblia DNA MARIBEL+probe Ql (Stl) Negative Negative [facility] G. lamblia DNA MARIBEL+probe Ql (Stl) Giardia ricardo BD Max Negative [facility] Ova and Parasite Panelon Cryptosporidium (C.hominis+par Negative Normal Negative [facility] Comment on above: Result Comment: Cryp tosporidium test includes C. hominis and C. parvum. Performed By: #### O HELMET BINDER, ENT BACT PANEL #### [address] Entamoeba histolytica Negative Normal Negative [facility] Comment on above: Result Comment: Test ing performed by RT-PCR PERFORMED BY: [place] [address] PATHOLOGIST METER SHOP SUPERVISOR ANG KERR M.D. Performed By: #### O HELMET BINDER, ENT BACT PANEL #### [address] Giardia lamblia Negative Normal Negative [facility] Comment on above: Performed By: #### O HELMET BINDER, ENT BACT PANEL #### [place] [address] [place] Salmonella sp spaO gene [Pre sence] in Stool by MARIBEL with probe detectionOrdered By: Imad Asaad on 03-26-2024 Salmonella sp spaO gene MARIBEL+probe Ql (Stl) Negative Negative [facility] Comment on above: Testing performed by RT-PCR Salmonellosis BD MaxOrdered By: Imad Asaad on 03-26-2024 Salmonella sp spaO gene MARIBEL+probe Ql (Stl) Salmonella sp spaO gene [Presence] in Stool by MARIBEL with probe detection Negative [facility] Comment on above: Testing performed by RT-PCR Shigella Tox 1+2 BD MaxOrder ed By: Imalexander Asaad on 03-26-2024 E. coli stx1+stx2 genes MARIBEL+probe Ql (Stl) Escherichia coli Stx1 and Stx2 toxin stx1+stx2 genes [Presence] in Stool by MARIBEL with Negative [facility] Shigella species+EIEC invasi on plasmid antigen H ipaH gene [Presence] in Stool by NAAOrdered By: Imad Asaad on 03-26-2024 Shigella species+EIEC invasion plasmid antigen H ipaH gene MARIBEL+probe Ql (Stl) Negative Negative [facility] Comment on above: Shigella sp. test in cludes Shigella species and Enteroinvasive E. coli (EIEC). Shigellosis BD MaxOrdered By : Imad Asaad on 03-26-2024 Shigella species+EIEC invasion plasmid antigen H ipaH gene MARIBEL+probe Ql (Stl) Shigella species+EIEC invasion plasmid antigen H ipaH gene [Presence] in Stool by MARIBEL Negative [facility] Comment on above: Shigella sp. test in cludes Shigella species and Enteroinvasive E. coli (EIEC). Stool Bacterial Panelon 03-04 Campylobacter Negative Normal Negative [facility] Comment on above: Result Comment: Camp ylobacter test includes C. jejuni and C. coli. Performed By: #### O HELMET BINDER, ENT BACT PANEL #### [address] Salmonella Species Negative Normal Negative [facility] Comment on above: Result Comment: Test ing performed by RT-PCR PERFORMED BY: [place] [address] PATHOLOGIST METER SHOP SUPERVISOR ANG KERR M.D. Performed By: #### O HELMET BINDER, ENT BACT PANEL #### [address] Shiga Toxin (E coli O157+oth) Negative Normal Negative [facility] Comment on above: Performed By: #### O HELMET BINDER, ENT BACT PANEL #### [address] Shigella Species Negative Normal Negative [facility] Comment on above: Result Comment: Shig mert sp. test includes Shigella species and Enteroinvasive E. coli (EIEC). Performed By: #### O HELMET BINDER, ENT BACT PANEL #### [address] AFP Tumor Marker, Serumon AFP Tumor Marker, Serum 9.3 ng/mL High 0.0-8.4 T [facility] Comment on above: Order Comment: Reaso n for Exam Cirrhosis of liver without ascites, unspecified hepatic cirr Result Comment: [facility] Electrochemiluminescence Immunoassay (ECLIA) Values obtained with different assay methods or kits cannot be used interchangeably. Results cannot be interpreted as absolute evidence of the presence or absence of malignant disease. This test is not interpretable in females. Performed at: [facility] [id number] Casting Machine Adjuster: Damon Wood PhD, Phone: [phone] PERFORMED BY: [place] [address] PATHOLOGIST METER SHOP SUPERVISOR ANG KERR M.D. Performed By: #### A FPTM #### [facility] , Alanine aminotransferase [En zymatic activity/volume] in Serum or PlasmaOrdered By: Jojo Stearns on 03-18-2024 ALT [Catalytic activity/Vol] 24 U/L Normal [facility] Comment on above: Order Comment: Reaso n for Exam Cirrhosis of liver without ascites, unspecified hepatic cirr Performed By: #### C MP, HEPATIC #### [address] ALT [Catalytic activity/Vol] Alanine aminotransferase [Enzymatic activity/volume] in Serum or Plasma [facility] Albumin [Mass/volume] in Ser um or Plasma by Bromocresol green (BCG) dye binding methoOrdered By: Jojo Stearns on 03-18-2024 Albumin BCG dye [Mass/Vol] 3.9 g/dL 3.5-5.7 [facility] Albumin BCG dye [Mass/Vol] Albumin [Mass/volume] in Serum or Plasma by Bromocresol green (BCG) dye binding metho 3.5-5.7 [facility] Alkaline phosphatase [Enzyma tic activity/volume] in Serum or PlasmaOrdered By: Imad Asaad on 03-18-2024 ALP [Catalytic activity/Vol] 59 U/L Normal 34-104 [facility] Comment on above: Order Comment: Reaso n for Exam Cirrhosis of liver without ascites, unspecified hepatic cirr Performed By: #### C MP, HEPATIC #### [facility] [address] ALP [Catalytic activity/Vol] Alkaline phosphatase [Enzymatic activity/volume] in Serum or Plasma 34-104 [facility] Aspartate aminotransferase [ Enzymatic activity/volume] in Serum or PlasmaOrdered By: Imad Asaad on 03-18-2024 AST [Catalytic activity/Vol] 24 U/L Normal 13-39 [facility] Comment on above: Order Comment: Reaso n for Exam Cirrhosis of liver without ascites, unspecified hepatic cirr Performed By: #### C MP, HEPATIC #### [facility] [address] [place] [id number] [place] AST [Catalytic activity/Vol] Aspartate aminotransferase [Enzymatic activity/volume] in Serum or Plasma 13-39 [facility] Bilirubin.direct [Mass/volum e] in Serum or PlasmaOrdered By: Imad Asaad on 03-18-2024 Bilirubin.direct [Mass/Vol] 0.10 mg/dL 0.03-0.18 [facility] Bilirubin.direct [Mass/Vol] Bilirubin.direct [Mass/volume] in Serum or Plasma 0.03-0.18 [facility] Bilirubin.total [Mass/volume ] in Serum or PlasmaOrdered By: Imad Asaad on 03-18-2024 Bilirubin [Mass/Vol] 0.6 mg/dL Normal 0.3-1.0 [facility] Comment on above: Order Comment: Reaso n for Exam Cirrhosis of liver without ascites, unspecified hepatic cirr Performed By: #### C MP, HEPATIC #### [facility] [address] [place] [id number] [place] Bilirubin [Mass/Vol] Bilirubin.total [Mass/volume] in Serum or Plasma 0.3-1.0 [facility] Calcium [Mass/volume] in Ser um or PlasmaOrdered By: Imad Asaad on 03-18-2024 Calcium [Mass/Vol] 8.8 mg/dL Normal 8.6-10.3 [facility] Comment on above: Order Comment: Reaso n for Exam Cirrhosis of liver without ascites, unspecified hepatic cirr Performed By: #### C MP, HEPATIC #### [facility] [address] [place] [address] [facility] Calcium [Mass/Vol] Calcium [Mass/volume ] in Serum or Plasma 8.6-10.3 [facility] Carbon dioxide, total [Moles /volume] in Serum or PlasmaOrdered By: Imad Asaad on 03-18-2024 CO2 [Moles/Vol] 29.4 mmol/L Normal 21.0-31.0 [facility] Comment on above: Order Comment: Reaso n for Exam Cirrhosis of liver without ascites, unspecified hepatic cirr Performed By: #### C MP, HEPATIC #### [facility] [address] [place] [id number] [place] CO2 [Moles/Vol] Carbon dioxide, tota l [Moles/volume] in Serum or Plasma 21.0-31.0 [facility] Chloride [Moles/volume] in S chris or PlasmaOrdered By: Imad Asaad on 03-18-2024 Chloride [Moles/Vol] 107 mmol/L Normal 98-107 [facility] Comment on above: Order Comment: Reaso n for Exam Cirrhosis of liver without ascites, unspecified hepatic cirr Performed By: #### C MP, HEPATIC #### [facility] [address] [place] [id number] [place] Chloride [Moles/Vol] Chloride [Moles/vol ume] in Serum or Plasma 98-107 [facility] Comprehensive Metabolic Pane juan francisco 03-18-2024 Albumin [Mass/Vol] 3.9 g/dL Normal 3.5-5.7 [facility] Comment on above: Order Comment: Reaso n for Exam Cirrhosis of liver without ascites, unspecified hepatic cirr Performed By: #### C MP, HEPATIC #### [facility] [address] [place] [address] [place] GFR/1.73 sq M.predicted MDRD (S/P/Bld) [Vol rate/Area] mL/min/{1.73_m2} Normal [facility] Comment on above: Order Comment: Reaso n for Exam Cirrhosis of liver without ascites, unspecified hepatic cirr Performed By: #### C MP, HEPATIC #### [facility] [address] [place] [address] [place] Creatinine [Mass/volume] in Serum or PlasmaOrdered By: Imad Daryn on 03-18-2024 Creatinine [Mass/Vol] 0.81 mg/dL Normal 0.70-1.30 [facility] Comment on above: Order Comment: Reaso n for Exam Cirrhosis of liver without ascites, unspecified hepatic cirr Performed By: #### C MP, HEPATIC #### [facility] [address] [place] [address] [place] Creatinine [Mass/Vol] Creatinine [Mass/v olume] in Serum or Plasma 0.70-1.30 [facility] Globulin Calc (S) [Mass/Vol] Ordered By: Imad Asaad on 03-18-2024 Globulin (S) [Mass/Vol] Serum globulin m easurement by calculation (mass/volume) [facility] Glucose [Mass/volume] in Ser um or PlasmaOrdered By: Imad Asaad on 03-18-2024 Glucose [Mass/Vol] 80 mg/dL Normal 70-100 [facility] Comment on above: ADA recommended refe rence rangeRandom Glucose Reference Range is dependent on time and content of last meal. Glucose of more than 200 mg/dL in a nonstressed, ambulatory subject supports the diagnosis of Diabetes Mellitus. Order Comment: Reaso n for Exam Cirrhosis of liver without ascites, unspecified hepatic cirr Result Comment: [place] Glucose Reference Range is dependent on time and content of last meal. Glucose of more than 200 mg/dL in a nonstressed, ambulatory subject supports the diagnosis of Diabetes Mellitus. ADA recommended reference range Performed By: #### C MP, HEPATIC #### [facility] [address] [place] [id number] [place] Glucose [Mass/Vol] Glucose [Mass/volume ] in Serum or Plasma 70-100 [facility] Comment on above: ADA recommended refe rence rangeRandom Glucose Reference Range is dependent on time and content of last meal. Glucose of more than 200 mg/dL in a nonstressed, ambulatory subject supports the diagnosis of Diabetes Mellitus. Hepatic Panelon 03-18-2024 Bilirubin,Indirect 0.5 mg/dL Normal [facility] Comment on above: Order Comment: Reaso n for Exam Cirrhosis of liver without ascites, unspecified hepatic cirr Result Comment: PERF ORMED BY: [place] [address] PATHOLOGIST [employer] SUPERVISOR ANG KERR M.D. Performed By: #### C MP, HEPATIC #### [facility] [address] [place] [address] Bilirubin.indirect [Mass/Vol] 0.10 mg/dL Normal 0.03-0.18 [facility] Comment on above: Order Comment: Reaso n for Exam Cirrhosis of liver without ascites, unspecified hepatic cirr Performed By: #### C MP, HEPATIC #### [facility] [address] [place] [address] No Panel InformationOrdered By: Imad Asaad on 03-18-2024 Estimated GFR (CKD-EPI) > 60.0 mL/Min [facility] Creatinine Clearance (Chem N/A [facility] Potassium [Moles/volume] in Serum or PlasmaOrdered By: Imad Asaad on 03-18-2024 Potassium [Moles/Vol] 4.1 mmol/L Normal 3.5-5.1 [facility] Comment on above: Order Comment: Reaso n for Exam Cirrhosis of liver without ascites, unspecified hepatic cirr Performed By: #### C MP, HEPATIC #### [facility] [address] [place] [address] Potassium [Moles/Vol] Potassium [Moles/v olume] in Serum or Plasma 3.5-5.1 [facility] Protein [Mass/volume] in Ser um or PlasmaOrdered By: Imad Asaad on 03-18-2024 Protein [Mass/Vol] 6.2 g/dL Low 6.4-8.9 [facility] Comment on above: Order Comment: Reaso n for Exam Cirrhosis of liver without ascites, unspecified hepatic cirr Performed By: #### C MP, HEPATIC #### [facility] [address] [place] [id number] [facility] Protein [Mass/Vol] Protein [Mass/volume ] in Serum or Plasma Low 6.4-8.9 [facility] Serum globulin measurement b y calculation (mass/volume)Ordered By: Jojo Stearns on 03-18-2024 Globulin (S) [Mass/Vol] 2.3 g/dL Normal F [facility] Comment on above: Order Comment: Reaso n for Exam Cirrhosis of liver without ascites, unspecified hepatic cirr Performed By: #### C MP, HEPATIC #### [facility] [address] [place] [id number] [facility] Serum or plasma albumin/glob ulin mass ratioOrdered By: Jojo Stearns on 03-18-2024 Albumin/Globulin [Mass ratio] 1.7 {ratio} Normal [facility] Comment on above: Order Comment: Reaso n for Exam Cirrhosis of liver without ascites, unspecified hepatic cirr Performed By: #### C MP, HEPATIC #### [facility] [address] [place] [id number] [facility] Albumin/Globulin [Mass ratio] Serum or plasma albumin/globulin mass ratio [facility] Serum or plasma [id number] protein tumor marker measurement (mass/volume)Ordered By: Jojo Stearns on 03-18-2024 AFP.tumor marker [Mass/Vol] 9.3 ng/mL High 0.0-8.4 [facility] Comment on above: [employer] El ectrochemiluminescence Immunoassay(ECLIA)Values obtained with different assay methods or kits cannotbe used interchangeably. Results cannot be interpreted asabsolute evidence of the presence or absence of malignantdisease.This test is not interpretable in females.Performed at: [address] [id number] Director: Damon Wood PhD, Phone: [phone] AFP.tumor marker [Mass/Vol] Serum or plasma [id number] tumor marker measurement (mass/volume) High 0.0-8.4 [facility] Comment on above: [employer] El ectrochemiluminescence Immunoassay(ECLIA)Values obtained with different assay methods or kits cannotbe used interchangeably. Results cannot be interpreted asabsolute evidence of the presence or absence of malignantdisease.This test is not interpretable in females.Performed at: [facility] [address] [id number] Director: Damon Wood PhD, Phone: [phone] Serum or plasma anion gap de terminationOrdered By: Jojo Sterans on 03-18-2024 Anion gap [Moles/Vol] 9.7 mmol/L Normal 6.0-15.0 [facility] Comment on above: Order Comment: Reaso n for Exam Cirrhosis of liver without ascites, unspecified hepatic cirr Performed By: #### C MP, HEPATIC #### [address] Anion gap [Moles/Vol] Serum or plasma an ion gap determination 6.0-15.0 [facility] Serum or plasma non-glucuron idated bilirubin measurement (mass/volume)Ordered By: Jojo Stearns on 03-18-2024 Bilirubin.indirect [Mass/Vol] 0.5 mg/dL [facility] Bilirubin.indirect [Mass/Vol] Serum or plasma non-glucuronidated bilirubin measurement (mass/volume) [facility] Sodium [Moles/volume] in Ser um or PlasmaOrdered By: Jojo Stearns on 03-18-2024 Sodium [Moles/Vol] 142 mmol/L Normal 136-145 [facility] Comment on above: Order Comment: Reaso n for Exam Cirrhosis of liver without ascites, unspecified hepatic cirr Performed By: #### C JEFF, HEPATIC #### [facility] [address] [place] [address] [place] Sodium [Moles/Vol] Sodium [Moles/volume ] in Serum or Plasma 136-145 [facility] US liveron 03-18-2024 liver [facility] [address] [place] [address] Ultrasound Report Signed Patient: Paty Cardona MR#: [id number] : 1955 Acct:[id number] Age/Sex: 68 / M ADM Date: 03/18/24 Loc: UL Room: Type: [facility] Attending Dr: Jojo Stearns MD Ordering Provider: Jojo Stearns MD Date of Service: 03/18/24 US/US liver: Cirrhosis of liver without ascites, unspecified hepatic cirr Copies to: Jojo Setarns MD LIMITED ABDOMINAL ULTRASOUND - liver CLINICAL HISTORY: Follow-up in patient with cirrhosis COMPARISON: CT 09/20/2023 The gallbladder is surgically absent. No intra- or extrahepatic biliary dilatation is evident. The common duct measures 3 - 4 mm. The liver shows coarsened increased echotexture. There is subtle nodular contour. No focal intrahepatic masses are seen. There is appropriate hepatopetal flow within the main portal vein. The pancreas shows no significant sonographic abnormality. Cursory evaluation of the right kidney reveals no hydronephrosis or fluid within James's pouch. US/US liver IMPRESSION: CIRRHOTIC MORPHOLOGY OF THE LIVER, WITHOUT DISCRETE MASS. Impression dictated by: Aranza Abreu M.D.03/18/2024 12:42 PM Dictation Location: [place] [address] Tech: Carmen Castillo Transcribed By: WILFRID 03/18/24 1242 Dictated By: Aranza Abreu MD 03/18/24 1240 Signed By: 03/18/24 1242 Normal [facility] Urea nitrogen [Mass/volume] in Serum or PlasmaOrdered By: Jojo Stearns on 03-18-2024 Urea nitrogen [Mass/Vol] 19 mg/dL Normal 01-24 [facility] Comment on above: Order Comment: Reaso n for Exam Cirrhosis of liver without ascites, unspecified hepatic cirr Performed By: #### C MP, HEPATIC #### [address] Urea nitrogen [Mass/Vol] Urea nitrogen [Mass/volume] in Serum or Plasma 01-24 [facility] Basophils Auto (Bld) [#/Vol] on 01-05-2024 Basophils (Bld) [#/Vol] 0.0 10 3/uL 0.0-0.1 [facility] Basophils/100 WBC Auto (Bld) on 01-05-2024 Basophils/100 WBC (Bld) 0.5 % 0.2-2.0 F [facility] Cholesterol in LDL Calc [Mas s/Vol]on 01-05-2024 Cholesterol in LDL [Mass/Vol] 140.0 mg/dL [facility] Comment on above: <100 mg/dl [id number] 0-129 mg/dl NEAR OR ABOVE [id number] mg/dl BORDERLINE [id number] mg/dl HIGH>190 mg/dl VERY HIGH Cholesterol in VLDL Calc [Ma ss/Vol]on 01-05-2024 Cholesterol in VLDL [Mass/Vol] 24.8 mg/dL [facility] Eosinophils/100 WBC Auto (Bl d)on 01-05-2024 Eosinophils/100 WBC (Bld) 2.6 % 0.9-7.0 [facility] Erythrocyte distribution wid th Auto (RBC) [Ratio]on 01-05-2024 Erythrocyte distribution width (RBC) [Ratio] 12.9 % 11.0-15.0 [facility] Estimated glomerular filtrat ion rate (GFR) non- Americanon 01-05-2024 GFR/1.73 sq M.predicted among non-blacks MDRD (S/P/Bld) [Vol rate/Area] mL/min/{1.73_m2} >=60 [facility] Globulin Calc (S) [Mass/Vol] on 01-05-2024 Globulin (S) [Mass/Vol] 3.6 g/dL F [facility] Glucose mean value [Mass/vol ume] in Blood Estimated from glycated hemoglobinon 01-05-2024 Average glucose Estimated from glycated hemoglobin (Bld) [Mass/Vol] 126 mg/dL [facility] Hematocrit Auto (Bld) [Volum e fraction]on 01-05-2024 Hematocrit (Bld) [Volume fraction] 45.1 % 42.0-54.0 [facility] Hemoglobin [Mass/volume] in Bloodon 01-05-2024 Hemoglobin (Bld) [Mass/Vol] 15.5 g/dL 14.0-18.0 [facility] Laboratory - Chemistry and C hemistry - challengeon 01-05-2024 Albumin [Mass/Vol] 3.8 g/dL 3.4-5.0 [facility] ALP [Catalytic activity/Vol] 84 U/L 46-116 [facility] ALT [Catalytic activity/Vol] 40 U/L 16-63 [facility] AST [Catalytic activity/Vol] 26 U/L 15-37 [facility] Bilirubin [Mass/Vol] 0.7 mg/dL 0.2-1.0 [facility] Calcium [Mass/Vol] 8.6 mg/dL 8.5-10.1 [facility] Chloride [Moles/Vol] 108 mmol/L High 98-107 [facility] Cholesterol [Mass/Vol] 214 mg/dL High <=200 [facility] Cholesterol in HDL [Mass/Vol] 50 mg/dL 40-60 [facility] Comment on above: > or =60 mg/dl - LOW CARDIOVASCULAR RISK<40 mg/dl - HIGH CARDIOVASCULAR RISK CO2 [Moles/Vol] 31.1 mmol/L 21.0-32.0 [facility] Creatinine [Mass/Vol] 1.00 mg/dL 0.70-1.30 [facility] GFR/1.73 sq M.predicted MDRD (S/P/Bld) [Vol rate/Area] mL/min/{1.73_m2} >=60 [facility] Glucose [Mass/Vol] 85 mg/dL 74-106 [facility] Potassium [Moles/Vol] 4.3 mmol/L 3.5-5.1 [facility] Protein [Mass/Vol] 7.4 g/dL 6.4-8.2 [facility] Sodium [Moles/Vol] 146 mmol/L High 136-145 [facility] Triglyceride [Mass/Vol] 124 mg/dL <=150 [facility] Urea nitrogen [Mass/Vol] 17.0 mg/dL 7.0-18.0 [facility] Urea nitrogen/Creatinine [Mass ratio] 17.0 mg/mg [facility] Laboratory - Hematology and Cell countson 01-05-2024 HbA1c (Bld) [Mass fraction] 6.0 % 4.5-6.2 [facility] Comment on above: ADA RECOMMENDED LIMI T 4.0 - 6.0ADA THERAPEUTIC TARGET < 7.0ACTION SUGGESTED> 7.0 Immature granulocytes/100 WBC (Bld) 0.5 % 0.0-0.5 [facility] Leukocytes [#/volume] correc jimena for nucleated erythrocytes in Blood by Automated counon 01-05-2024 WBC corrected for nucl RBC Auto (Bld) [#/Vol] 6.2 10 3/uL 4.0-11.0 [facility] Lymphocytes Auto (Bld) [#/Vo l]on 01-05-2024 Lymphocytes (Bld) [#/Vol] 1.5 10 3/uL 1.2-3.8 [facility] Lymphocytes/100 WBC Auto (Bl d)on 01-05-2024 Lymphocytes/100 WBC (Bld) 24.8 % 20.5-60.0 [facility] MCH Auto (RBC) [Entitic mass ]on 01-05-2024 MCH (RBC) [Entitic mass] 31.9 pg 25.9-34.0 [facility] MCHC Auto (RBC) [Mass/Vol]on 01-05-2024 MCHC (RBC) [Mass/Vol] 34.4 g/dL 29.9-35.[address] [facility] MCV Auto (RBC) [Entitic vol] on 01-05-2024 MCV (RBC) [Entitic vol] 92.8 fL 80.0-94.0 F [facility] Microalbumin [Mass/volume] i n Urineon 01-05-2024 Albumin DL <= 20 mg/L (U) [Mass/Vol] 2.3 mg/dL <=30.0 [facility] Monocytes Auto (Bld) [#/Vol] on 01-05-2024 Monocytes (Bld) [#/Vol] 0.8 10 3/uL 0.3-0.8 [facility] Monocytes/100 WBC Auto (Bld) on 01-05-2024 Monocytes/100 WBC (Bld) 12.4 % High 1.7-12.0 [facility] Neutrophils Auto (Bld) [#/Vo l]on 01-05-2024 Neutrophils (Bld) [#/Vol] 3.7 10 3/uL 1.4-6.5 [facility] Neutrophils/100 WBC Auto (Bl d)on 01-05-2024 Neutrophils/100 WBC (Bld) 59.2 % 43.0-75.0 [facility] No Panel Informationon 01-04 Eosinophils # (Auto) 0.2 10 3/uL 0.0-0.7 [facility] Immature Granulocyte # (Auto) 0.03 10 3/uL 0.00-0.03 [facility] Prostate Specific Antigen Screen 0.47 ng/mL <=4.00 [facility] Platelet mean volume Auto (B ld) [Entitic vol]on 01-05-2024 Platelet mean volume (Bld) [Entitic vol] 10.1 fL 9.5-13.5 [facility] Platelets Auto (Bld) [#/Vol] on 01-05-2024 Platelets (Bld) [#/Vol] 101 10 3/uL Low 150-450 [facility] RBC Auto (Bld) [#/Vol]on RBC (Bld) [#/Vol] 4.86 10 6/uL 4.70-6.10 [facility] Serum or plasma albumin/glob ulin mass ratioon 01-05-2024 Albumin/Globulin [Mass ratio] 1.1 {ratio} [facility] Serum or plasma anion gap de terminationon 01-05-2024 Anion gap [Moles/Vol] 11.2 mmol/L Fi [facility] Serum or plasma total choles terol/high density lipoprotein (HDL) cholesterol mass deysi 01-05-2024 Cholesterol.total/Nora sterol in HDL [Mass ratio] 4.3 {ratio} [facility] Comment on above: 3.3 - 4.4 LOW RISK4. 4 - 7.1 AVERAGE RISK7.1 - 11.0 MODERATE RISK>11.0 HIGH RISK Basophils Auto (Bld) [#/Vol] on 09-22-2023 Basophils (Bld) [#/Vol] 0.0 10 3/uL 0.0-0.1 [facility] Basophils/100 WBC Auto (Bld) on 09-22-2023 Basophils/100 WBC (Bld) 0.6 % 0.2-2.0 [facility] Eosinophils/100 WBC Auto (Bl d)on 09-22-2023 Eosinophils/100 WBC (Bld) 5.1 % 0.9-7.0 [facility] Erythrocyte distribution wid th Auto (RBC) [Ratio]on 09-22-2023 Erythrocyte distribution width (RBC) [Ratio] 13.0 % 11.0-15.0 [facility] Estimated glomerular filtrat ion rate (GFR) non- Americanon 09-22-2023 GFR/1.73 sq M.predicted among non-blacks MDRD (S/P/Bld) [Vol rate/Area] mL/min/{1.73_m2} >=60 [facility] Globulin Calc (S) [Mass/Vol] on 09-22-2023 Globulin (S) [Mass/Vol] 3.4 g/dL F [facility] Hematocrit Auto (Bld) [Volum e fraction]on 09-22-2023 Hematocrit (Bld) [Volume fraction] 43.9 % 42.0-54.0 [facility] Hemoglobin [Mass/volume] in Bloodon 09-22-2023 Hemoglobin (Bld) [Mass/Vol] 14.9 g/dL 14.0-18.0 [facility] Laboratory - Chemistry and C hemistry - challengeon 09-22-2023 Albumin [Mass/Vol] 3.4 g/dL 3.4-5.0 [facility] ALP [Catalytic activity/Vol] 87 U/L 46-116 [facility] ALT [Catalytic activity/Vol] 39 U/L 16-63 [facility] AST [Catalytic activity/Vol] 28 U/L 15-37 [facility] Bilirubin [Mass/Vol] 0.7 mg/dL 0.2-1.0 [facility] Calcium [Mass/Vol] 8.4 mg/dL 8.5-10.1 [facility] Chloride [Moles/Vol] 102 mmol/L 98-107 [facility] CO2 [Moles/Vol] 27.9 mmol/L 21.0-32.0 [facility] Creatinine [Mass/Vol] 0.76 mg/dL 0.70-1.30 [facility] GFR/1.73 sq M.predicted MDRD (S/P/Bld) [Vol rate/Area] mL/min/{1.73_m2} >=60 [facility] Glucose [Mass/Vol] 206 mg/dL 74-106 [facility] Potassium [Moles/Vol] 3.9 mmol/L 3.5-5.1 [facility] Protein [Mass/Vol] 6.8 g/dL 6.4-8.2 [facility] Sodium [Moles/Vol] 136 mmol/L 136-145 [facility] Urea nitrogen [Mass/Vol] 13.0 mg/dL 7.0-18.0 [facility] Urea nitrogen/Creatinine [Mass ratio] 17.1 mg/mg [facility] Laboratory - Hematology and Cell countson 09-22-2023 ESR (Bld) [Velocity] 18 mm/h <=20 [facility] Immature granulocytes/100 WBC (Bld) 0.0 % 0.0-0.5 [facility] Leukocytes [#/volume] correc jimena for nucleated erythrocytes in Blood by Automated counon 09-22-2023 WBC corrected for nucl RBC Auto (Bld) [#/Vol] 4.9 10 3/uL 4.0-11.0 [facility] Lymphocytes Auto (Bld) [#/Vo l]on 09-22-2023 Lymphocytes (Bld) [#/Vol] 1.5 10 3/uL 1.2-3.8 [facility] Lymphocytes/100 WBC Auto (Bl d)on 09-22-2023 Lymphocytes/100 WBC (Bld) 30.6 % 20.5-60.0 [facility] MCH Auto (RBC) [Entitic mass ]on 09-22-2023 MCH (RBC) [Entitic mass] 30.5 pg 25.9-34.0 [facility] MCHC Auto (RBC) [Mass/Vol]on 09-22-2023 MCHC (RBC) [Mass/Vol] 33.9 g/dL 29.9-35.2 [facility] MCV Auto (RBC) [Entitic vol] on 09-22-2023 MCV (RBC) [Entitic vol] 90.0 fL 80.0-94.0 [facility] Monocytes Auto (Bld) [#/Vol] on 09-22-2023 Monocytes (Bld) [#/Vol] 0.6 10 3/uL 0.3-0.8 [facility] Monocytes/100 WBC Auto (Bld) on 09-22-2023 Monocytes/100 WBC (Bld) 12.7 % 1.7-12.0 [facility] Neutrophils Auto (Bld) [#/Vo l]on 09-22-2023 Neutrophils (Bld) [#/Vol] 2.5 10 3/uL 1.4-6.5 [facility] Neutrophils/100 WBC Auto (Bl d)on 09-22-2023 Neutrophils/100 WBC (Bld) 51.0 % 43.0-75.0 [facility] No Panel Informationon 09-21 C-Reactive Protein, Quantitative <0.50 mg/dL <=0.50 [facility] Eosinophils # (Auto) 0.3 10 3/uL 0.0-0.[address] [facility] Immature Granulocyte # (Auto) 0.00 10 3/uL 0.00-0.03 [facility] Platelet mean volume Auto (B ld) [Entitic vol]on 09-22-2023 Platelet mean volume (Bld) [Entitic vol] 11.0 fL 9.5-13.5 [facility] Platelets Auto (Bld) [#/Vol] on 09-22-2023 Platelets (Bld) [#/Vol] 99 10 3/uL 150-450 [facility] RBC Auto (Bld) [#/Vol]on RBC (Bld) [#/Vol] 4.88 10 6/uL 4.70-6.10 [facility] Serum or plasma albumin/glob ulin mass ratioon 09-22-2023 Albumin/Globulin [Mass ratio] 1.0 {ratio} [facility] Serum or plasma anion gap de terminationon 09-22-2023 Anion gap [Moles/Vol] 10.0 mmol/L [facility]w con[facility] 2023 CT abdomen wo/w con [facility] [address] [place] [address] CT Scan Report Signed Patient: Paty Cardona MR#: [id number] : 1955 Acct:[id number] Age/Sex: 67 / M ADM Date: 09/20/23 Loc: CT Room: Type: [facility] Attending Dr: Jojo Stearns MD Copies to: Jojo Stearns MD Ordering Provider: Jojo Stearns MD Date of Service: 09/20/23 CT/CT [...] Aranza Abreu M.D.09/20/2023 4:19 PM Dictation Location: [place] [address] Transcribed By: WILFRID 09/20/23 1619 Dictated By: Aranza Abreu MD 09/20/23 1609 Signed By: 09/20/23 1619 Normal [facility] Alanine aminotransferase [En zymatic activity/volume] in Serum or PlasmaOrdered By: Cory Zeng on 08-22-2023 ALT [Catalytic activity/Vol] 42 U/L Normal 7-52 [facility] Comment on above: Performed By: #### T 4F, CRP, CBC, ESR, TSH3, CMP #### [facility] [address] [place] [address] Albumin [Mass/volume] in Ser um or Plasma by Bromocresol green (BCG) dye binding methoOrdered By: Cory Zeng on 08-22-2023 Albumin BCG dye [Mass/Vol] 4.3 g/dL 3.5-5.7 [facility] Alkaline phosphatase [Enzyma tic activity/volume] in Serum or PlasmaOrdered By: Cory Zeng on 08-22-2023 ALP [Catalytic activity/Vol] 70 U/L Normal 34-104 [facility] Comment on above: Performed By: #### T 4F, CRP, CBC, ESR, TSH3, CMP #### [facility] [address] [place] [id number] [place] Aspartate aminotransferase [ Enzymatic activity/volume] in Serum or PlasmaOrdered By: Cory Zeng on 08-22-2023 AST [Catalytic activity/Vol] 32 U/L Normal 13-39 [facility] Comment on above: Performed By: #### T 4F, CRP, CBC, ESR, TSH3, CMP #### [facility] [address] [place] [id number] [place] Automated basophil %Ordered By: Cory Zeng on 08-22-2023 Basophils/100 WBC (Bld) 0.5 % Normal . [facility] Comment on above: Performed By: #### T 4F, CRP, CBC, ESR, TSH3, CMP ####[address] Automated basophil countOrde red By: Cory Hernandezrow on 08-22-2023 Basophils (Bld) [#/Vol] 0.0 10*3/uL Normal 0.0-0.2 [facility] Comment on above: Performed By: #### T 4F, CRP, CBC, ESR, TSH3, CMP ####[address] Automated blood monocyte cou ntOrdered By: Cory Hernandezrow on 08-22-2023 Monocytes (Bld) [#/Vol] 0.5 10*3/uL Normal 0.0-0.8 [facility] Comment on above: Performed By: #### T 4F, CRP, CBC, ESR, TSH3, CMP ####[address] Automated eosinophil %Ordere d By: Cory Hernandezrow on 08-22-2023 Eosinophils/100 WBC (Bld) 4.2 % Normal . [facility] Comment on above: Performed By: #### T 4F, CRP, CBC, ESR, TSH3, CMP ####[address] Automated eosinophil countOr dered By: Cory Hernandezrow on 08-22-2023 Eosinophils (Bld) [#/Vol] 0.2 10*3/uL Normal 0.0-0.45 [facility] Comment on above: Performed By: #### T 4F, CRP, CBC, ESR, TSH3, CMP ####[address] Automated monocyte %Ordered By: Cory Karri on 08-22-2023 Monocytes/100 WBC (Bld) 11.5 % Normal . [facility] Comment on above: Performed By: #### T 4F, CRP, CBC, ESR, TSH3, CMP ####[address] Automated neutrophil %Ordere d By: Cory Zeng on 08-22-2023 Neutrophils/100 WBC (Bld) 50.0 % Normal . [facility] Comment on above: Performed By: #### T 4F, CRP, CBC, ESR, TSH3, CMP ####[facility] [id number] Bilirubin.total [Mass/volume ] in Serum or PlasmaOrdered By: Cory Hernandezrow on 08-22-2023 Bilirubin [Mass/Vol] 0.7 mg/dL Normal 0.3-1.0 [facility] Comment on above: Performed By: #### T 4F, CRP, CBC, ESR, TSH3, CMP #### [facility] [address] C reactive protein [Mass/vol ume] in Serum or PlasmaOrdered By: Cory Hernandezrow on 08-22-2023 CRP [Mass/Vol] < 0.5 mg/dL 0.0-0.5 [facility] C-Reactive Proteinon 024 CRP [Mass/Vol] mg/L Normal 0.0-0.5 [facility] Comment on above: Performed By: #### T 4F, CRP, CBC, ESR, TSH3, CMP ####[facility] [id number] [place] [address] Calcium [Mass/volume] in Ser um or PlasmaOrdered By: Cory Hernandezrow on 08-22-2023 Calcium [Mass/Vol] 9.2 mg/dL Normal 8.6-10.3 [facility] Comment on above: Performed By: #### T 4F, CRP, CBC, ESR, TSH3, CMP #### [facility] [address] Carbon dioxide, total [Moles /volume] in Serum or PlasmaOrdered By: Cory Hernandezrow on 08-22-2023 CO2 [Moles/Vol] 29.6 mmol/L Normal 21.0-31.0 [facility] Comment on above: Performed By: #### T 4F, CRP, CBC, ESR, TSH3, CMP #### [address] Chloride [Moles/volume] in S chris or PlasmaOrdered By: Cory Zeng on 08-22-2023 Chloride [Moles/Vol] 106 mmol/L Normal 98-107 [facility] Comment on above: Performed By: #### T 4F, CRP, CBC, ESR, TSH3, CMP #### [address] Complete Blood Count Auto Di ffon 08-22-2023 Mean Corpuscular HGB Conc 34.2 g/dL Normal 32.5-35.6 [facility] Comment on above: Performed By: #### T 4F, CRP, CBC, ESR, TSH3, CMP ####[address] NRBC% 0.1 /100{WBC} Normal 0-0.5 [facility] Comment on above: Performed By: #### T 4F, CRP, CBC, ESR, TSH3, CMP ####[address] Comprehensive Metabolic Pane juan francisco 08-22-2023 Albumin [Mass/Vol] 4.3 g/dL Normal 3.5-5.7 [facility] Comment on above: Performed By: #### T 4F, CRP, CBC, ESR, TSH3, CMP #### [address] GFR/1.73 sq M.predicted MDRD (S/P/Bld) [Vol rate/Area] mL/min/{1.73_m2} Normal [facility] Comment on above: Performed By: #### T 4F, CRP, CBC, ESR, TSH3, CMP #### [address] Creatinine [Mass/volume] in Serum or PlasmaOrdered By: Cory Zeng on 08-22-2023 Creatinine [Mass/Vol] 0.72 mg/dL Normal 0.70-1.30 [facility] Comment on above: Performed By: #### T 4F, CRP, CBC, ESR, TSH3, CMP #### [facility] [address] Erythrocyte Sedimentation Ra sylvia 08-22-2023 ESR (Bld) [Velocity] 13 mm/h Normal 0-19 [facility] Comment on above: Result Comment: PERF ORMED BY: [facility] [address] [place] [address] PATHOLOGIST [employer] SUPERVISOR ANG KERR M.D. Performed By: #### T 4F, CRP, CBC, ESR, TSH3, CMP ####[facility] [address] Erythrocyte distribution wid th [Ratio] by Automated countOrdered By: Cory Zeng on 08-22-2023 Erythrocyte distribution width (RBC) [Ratio] 13.8 % Normal 12.0-14.8 [facility] Comment on above: Performed By: #### T 4F, CRP, CBC, ESR, TSH3, CMP ####[facility] Erythrocyte sedimentation ra te by Photometric methodOrdered By: Cory Zeng on 08-22-2023 ESR Photometric method (Bld) [Velocity] 13 mm/hr 0-19 [facility] Erythrocytes [#/volume] in B lood by Automated countOrdered By: Cory Zeng on 08-22-2023 RBC (Bld) [#/Vol] 4.96 10*6/uL Normal 3.90-5.60 [facility] Comment on above: Performed By: #### T 4F, CRP, CBC, ESR, TSH3, CMP ####[facility] [address] Glucose [Mass/volume] in Ser um or PlasmaOrdered By: Cory Zeng on 08-22-2023 Glucose [Mass/Vol] 100 mg/dL Normal 70-100 [facility] Comment on above: ADA recommended refe rence rangeRandom Glucose Reference Range is dependent on time and content of last meal. Glucose of more than 200 mg/dL in a nonstressed, ambulatory subject supports the diagnosis of Diabetes Mellitus. Result Comment: [place] om Glucose Reference Range is dependent on time and content of last meal. Glucose of more than 200 mg/dL in a nonstressed, ambulatory subject supports the diagnosis of Diabetes Mellitus. ADA recommended reference range Performed By: #### T 4F, CRP, CBC, ESR, TSH3, CMP #### [facility] [address] Hematocrit [Volume Fraction] of Blood by Automated countOrdered By: Cory Zeng on 08-22-2023 Hematocrit (Bld) [Volume fraction] 44.3 % Normal 38.8-50.0 [facility] Comment on above: Performed By: #### T 4F, CRP, CBC, ESR, TSH3, CMP ####[facility] Hemoglobin [Mass/volume] in BloodOrdered By: Cory Zeng on 08-22-2023 Hemoglobin (Bld) [Mass/Vol] 15.2 g/dL Normal 13.0-17.0 [facility] Comment on above: Performed By: #### T 4F, CRP, CBC, ESR, TSH3, CMP ####[facility] [place] [address] Leukocytes [#/volume] correc jimena for nucleated erythrocytes in Blood by Automated counOrdered By: Cory Zeng on 08-22-2023 WBC corrected for nucl RBC Auto (Bld) [#/Vol] 4.5 10*3/uL 4.1-10.5 [facility] Leukocytes [#/volume] in Blo od by Automated countOrdered By: Cory Zeng on 08-22-2023 WBC (Bld) [#/Vol] 4.5 10*3/uL Normal 4.1-10.5 [facility] Comment on above: Performed By: #### T 4F, CRP, CBC, ESR, TSH3, CMP ####[facility] [address] [place] [address] Lymphocytes [#/volume] in Bl ood by Automated countOrdered By: Cory Zeng on 08-22-2023 Lymphocytes (Bld) [#/Vol] 1.5 10*3/uL Normal 1.00-4.8 [facility] Comment on above: Performed By: #### T 4F, CRP, CBC, ESR, TSH3, CMP ####[address] Lymphocytes/100 leukocytes i n Blood by Automated countOrdered By: Cory Zeng on 08-22-2023 Lymphocytes/100 WBC (Bld) 33.8 % Normal . [facility] Comment on above: Performed By: #### T 4F, CRP, CBC, ESR, TSH3, CMP ####[address] MCH [Entitic mass] by Automa jimena countOrdered By: Cory Zeng on 08-22-2023 MCH (RBC) [Entitic mass] 30.6 pg Normal 27.5-35.2 [facility] Comment on above: Performed By: #### T 4F, CRP, CBC, ESR, TSH3, CMP ####[address] MCHC Auto (RBC) [Mass/Vol]Or dered By: Cory Zeng on 08-22-2023 MCHC (RBC) [Mass/Vol] 34.2 g/dL 32.5-35.6 [facility] MCV [Entitic volume] by Auto mated countOrdered By: Cory Zeng on 08-22-2023 MCV (RBC) [Entitic vol] 89.4 fL Normal 83.5-101 F [facility] Comment on above: Performed By: #### T 4F, CRP, CBC, ESR, TSH3, CMP ####[address] Neutrophils [#/volume] in Bl ood by Automated countOrdered By: Cory Zeng on 08-22-2023 Neutrophils (Bld) [#/Vol] 2.3 10*3/uL Normal 1.8-7.7 [facility] Comment on above: Performed By: #### T 4F, CRP, CBC, ESR, TSH3, CMP ####[address] No Panel InformationOrdered By: Cory Zeng on 08-22-2023 Estimated GFR (CKD-EPI) > 60.0 mL/Min [facility] Creatinine Clearance (Chem N/A [facility] Nucleated erythrocytes [Pres ence] in Blood by Automated countOrdered By: Cory Zeng on 08-22-2023 Nucleated RBC Auto Ql (Bld) 0.1 /100{WBC} 0-0.5 [facility] Platelet mean volume [Entiti c volume] in Blood by Automated countOrdered By: Cory Zeng on 08-22-2023 Platelet mean volume (Bld) [Entitic vol] 8.9 fL Normal 6.6-10.1 [facility] Comment on above: Performed By: #### T 4F, CRP, CBC, ESR, TSH3, CMP ####[facility] [address] [place] [address] Platelets [#/volume] in Bloo d by Automated countOrdered By: Cory Zeng on 08-22-2023 Platelets (Bld) [#/Vol] 90 10*3/uL Low 150-450 F [facility] Comment on above: Performed By: #### T 4F, CRP, CBC, ESR, TSH3, CMP ####[facility] [address] [place] [address] Potassium [Moles/volume] in Serum or PlasmaOrdered By: Cory Zeng on 08-22-2023 Potassium [Moles/Vol] 4.3 mmol/L Normal 3.5-5.1 [facility] Comment on above: Performed By: #### T 4F, CRP, CBC, ESR, TSH3, CMP #### [facility] [address] Protein [Mass/volume] in Ser um or PlasmaOrdered By: Cory Zeng on 08-22-2023 Protein [Mass/Vol] 6.8 g/dL Normal 6.4-8.9 [facility] Comment on above: Performed By: #### T 4F, CRP, CBC, ESR, TSH3, CMP #### [facility] [address] Serum globulin measurement b y calculation (mass/volume)Ordered By: Cory Hernandezrow on 08-22-2023 Globulin (S) [Mass/Vol] 2.5 g/dL Normal F [facility] Comment on above: Performed By: #### T 4F, CRP, CBC, ESR, TSH3, CMP #### [facility] [address] [place] [address] Serum or plasma albumin/glob ulin mass ratioOrdered By: Cory Karri on 08-22-2023 Albumin/Globulin [Mass ratio] 1.7 {ratio} Normal [facility] Comment on above: Performed By: #### T 4F, CRP, CBC, ESR, TSH3, CMP #### [address] Serum or plasma anion gap de terminationOrdered By: Cory Zeng on 08-22-2023 Anion gap [Moles/Vol] 11.7 mmol/L Normal 6.0-15.0 [facility] Comment on above: Performed By: #### T 4F, CRP, CBC, ESR, TSH3, CMP #### [address] Sodium [Moles/volume] in Ser um or PlasmaOrdered By: Cory Zeng on 08-22-2023 Sodium [Moles/Vol] 143 mmol/L Normal 136-145 [facility] Comment on above: Performed By: #### T 4F, CRP, CBC, ESR, TSH3, CMP #### [address] Thyrotropin [Units/volume] i n Serum or PlasmaOrdered By: Coryelena Zeng on 08-22-2023 TSH Qn 1.58 m[IU]/L Normal 0.45-5.33 [facility] Comment on above: Result Comment: PERF ORMED BY: [place] [address] PATHOLOGIST [employer] SUPERVISOR ANG KERR M.D. Performed By: #### T 4F, CRP, CBC, ESR, TSH3, CMP ####[address] [place] [address] [facility] Thyroxine (T4) free [Mass/vo lume] in Serum or PlasmaOrdered By: Cory Zeng on 08-22-2023 Free T4 [Mass/Vol] 0.89 ng/dL Normal 0.61-1.12 [facility] Comment on above: Performed By: #### T 4F, CRP, CBC, ESR, TSH3, CMP ####[facility] [address] Urea nitrogen [Mass/volume] in Serum or PlasmaOrdered By: Cory Zeng on 08-22-2023 Urea nitrogen [Mass/Vol] 20 mg/dL Normal 7-25 [facility] Comment on above: Performed By: #### T 4F, CRP, CBC, ESR, TSH3, CMP #### [facility] [address] Capillary blood glucose ken urement by glucometer (mass/volume)Ordered By: Osmar Mathis on 03-30-2023 Glucose [Mass/Vol] 119 mg/dL Normal [facility] Comment on above: Random Glucose Refer ence Range is dependent on time and content of last meal. Glucose of more than 200 mg/dL in a nonstressed, ambulatory subject supports the diagnosis of Diabetes Mellitus. Result Comment: [place] Glucose Reference Range is dependent on time and content of last meal. Glucose of more than 200 mg/dL in a nonstressed, ambulatory subject supports the diagnosis of Diabetes Mellitus. PERFORMED BY: [facility] [address] [place] [address] PATHOLOGIST [employer] SUPERVISOR ANG KERR M.D. Performed By: #### G EBONY #### Point of Care testing , Juan Francisco 03-30-2023 L ------- Specimen: [id number] Received: 03/30/23 Status: CINTHYA Reddy Num: [id number] Spec Type: Surgical Subm Dr: Osmar Mathis MD Tissues: A STOMACH FOR HP (ANTRUM HP) Procedures: HE/2, Gross/Micro L4, H PYLORI Age/ Patient Sex Location Account Attending Physician Paty Cardona/Vicky [id number] Osmar Mahtis MD SPEC NUM: [id number] RECD: 03/30/23 STATUS: CINTHYA REDDY NUM: [id number] RORY: 03/30/23- [facility] DR: Osmar Mathis MD ENTERED: 03/30/[address]: SPEC TYPE: Surgical DEPT: S ORDERED: HE/2, Gross/Micro [...] The microscopic examination confirms the diagnosis. Specimen: [id number] Received: 03/30/23 Status: CINTHYA Reddy Num: [id number] Spec Type: Surgical Subm Dr: Osmar Mathis MD Tissues: A STOMACH FOR HP (ANTRUM HP) Procedures: HE/2, Gross/Micro L4, H PYLORI Patient: Paty Cardona [id number] (Continued) Specimen: [id number] Received: 03/30/23 (Continued) Signed (signature on file) Prashanth Zamarripa MD 03/31/23 1837 Specimen: [id number] Received: 03/30/23 Status: CINTHYA Reddy Num: [id number] Spec Type: Surgical Subm Dr: Osmar Mathis MD Tissues: A STOMACH FOR HP (ANTRUM HP) Procedures: HE/2, Gross/Micro L4, H PYLORI Patient: Paty Cardona [id number] (Continued) Specimen: [id number] Received: 03/30/23 (Continued) CPT Codes 21571, 37539 Specimen: [id number] Received: 03/30/23-123 Status: CINTHYA Reddy Num: [id number] Spec Type: Surgical Subm Dr: Osmar Mathis MD Tissues: A STOMACH FOR HP (ANTRUM HP) Procedures: HE/2, Gross/Micro L4, H PYLORI Patient: Paty Cardona [id number] (Continued) Signed (signature on file) Prashanth Zamarripa MD 03/31/23 7248 Normal [facility] Actin smooth muscle IgG Ab [ Units/volume] in SerumOrdered By: Jojo Stearns on 01-25-2023 Actin smooth muscle IgG Qn (S) 6 Units 0-19 [facility] Comment on above: Negative 0 - 19 Weak positive 20 - 30 Moderate to strong positive >30 Actin Antibodies are found in 52-85% of patients with autoimmune hepatitis or chronic active hepatitis and in 22% of patients with primary biliary cirrhosis. Blood or tissue HFE gene mut ations identification by molecular genetics methodOrdered By: Jojo Stearns on 01-25-2023 HFE gene targeted mutation analysis [employer] Yemi (Bld/Tiss) See comment . [facility] Comment on above: Results:c.845G>A (p. Bqm124Rub) - Not Detectedc.187C>G (p.Gic67Dfi) - Detected, heterozygousc.193A>T (p.Qcz63Hbc) - Not DetectedNot associated with increased risk [...] recommended for patientswho are homozygous for c.845G>A (p.Eom513Ekj) and have yetto experience clinical symptoms.Comments:The most common HFE variants associated with hereditaryhemochromatosis are c.845G>A (p.Nnr885Gop), c.187C>G(p.Egb81Toa), c.193A>T (p.Fsu71Ivj). While patientshomozygous for c.845G>A (p.Xrd806Ivh) are the most likelyto present clinical symptoms, less than 10% developclinically significant iron overload with tissue and organdamage.Genetic counseling is recommended to discuss the potentialclinical implications of positive results, as well asrecommendations for testing family members.Genetic Coordinators are available for health careproviders to discuss results at [phone]).Test Details:Three variants analyzed:c.845G>A (p.Djt501Kom), commonly referred to as C282Yc.187C>G (p.Dhj46Nkf), commonly referred to as H63Dc.193A>T (p.Ysz03Oux), commonly referred to as Z17UCehyqup/Limitations:DNA Analysis of the HFE gene (NM_000410.4) was [...] was developed and its performancecharacteristics determined by [employer]. It has not beencleared or approved by the Food and Drug Administration.References:Mak BR, Alberto PC, Jovon KV, Gabe LW, Jose Alfredo ;[employer] Liver Diseases.Diagnosis and management of hemochromatosis: 2011 practiceguideline by the [employer] Association for the Study ofLiver Diseases. Hepatology. 2010;54(1):328-43. doi:10.1002/hep.67196. PMID: 06568104; PMCID: BAZ3659478.Mary G, Tahmina P, Josh LEON, Sixto H, Juan O,Cristo S, Ernst I, Nato M, Zaheer S. [facility] best practiceguidelines for the molecular genetic diagnosis ofhereditary hemochromatosis (HH). Eur J Hum Theresa. 2016Apr;24(4):479-95. doi: 10.1038/ejhg.2015.128. Epub 2014. PMID: 60977982; PMCID: [id number]. Calcium [Mass/volume] in Ser um or PlasmaOrdered By: Imad Asaalexander on 01-25-2023 Calcium [Mass/Vol] 9.0 mg/dL 8.6-10.3 [facility] Carbon dioxide, total [Moles /volume] in Serum or PlasmaOrdered By: Imad Asaad on 01-25-2023 CO2 [Moles/Vol] 24.9 mmol/L 21.0-31.0 [facility] Chloride [Moles/volume] in S chris or PlasmaOrdered By: Imad Asaad on 01-25-2023 Chloride [Moles/Vol] 107 mmol/L 98-107 [facility] Creatinine [Mass/volume] in Serum or PlasmaOrdered By: Imad Asaad on 01-25-2023 Creatinine [Mass/Vol] 0.69 mg/dL 0.70-1.30 [facility] Ferritin [Mass/volume] in Se rum or PlasmaOrdered By: Imad Asaad on 01-25-2023 Ferritin [Mass/Vol] 131.8 ng/mL 23.9-336.2 [facility] Glucose [Mass/volume] in Ser um or PlasmaOrdered By: Imad Asaad on 01-25-2023 Glucose [Mass/Vol] 146 mg/dL 70-100 [facility] Comment on above: ADA recommended refe rence rangeRandom Glucose Reference Range is dependent on time and content of last meal. Glucose of more than 200 mg/dL in a nonstressed, ambulatory subject supports the diagnosis of Diabetes Mellitus. Hepatitis A virus Ab [Presen ce] in Serum by ImmunoassayOrdered By: Imad Daryn on 01-25-2023 HAV Ab IA Ql (S) Positive Negative [facility] Hepatitis B virus surface Ag [Presence] in Serum or Plasma by ImmunoassayOrdered By: Imad Asaad 01-25-2023 HBV surface Ag IA Ql Negative Negative [facility] Hepatitis C virus IgG Ab [Pr esence] in Serum or Plasma by ImmunoassayOrdered By: Imad Asaad on 01-25-2023 HCV IgG IA Ql Non-Reactive Non Reactive [facility] IgA [Mass/volume] in Serum o r PlasmaOrdered By: Imad Asaad on 01-25-2023 IgA [Mass/Vol] 178 mg/dL 61-437 [facility] IgG [Mass/volume] in Serum o r PlasmaOrdered By: Imad Asaad on 01-25-2023 IgG [Mass/Vol] 938 mg/dL 603-1613 [facility] IgM [Mass/volume] in Serum o r PlasmaOrdered By: Imad Daryn on 01-25-2023 IgM [Mass/Vol] 340 mg/dL 20-172 [facility] Comment on above: Performed at: [facility] [address] [id number] Director: Damon Wood PhD, Phone: [phone] Laboratory - CoagulationOrde red By: Imad Daryn on 01-25-2023 PT Coag (PPP) [Time] 13.9 s 9.0-12.9 [facility] Lipase [Enzymatic activity/v olume] in Serum or PlasmaOrdered By: Imad Asaad on 01-25-2023 Lipase [Catalytic activity/Vol] 80.0 U/L 11.0-82.0 [facility] No Panel InformationOrdered By: Imalexander Asaalexander on 01-25-2023 Estimated GFR (CKD-EPI) > 60.0 mL/Min [facility] Hemochromatosis Note See comment . [facility] Comment on above: Shana Suarez, Ph.D., FACMGPerformed at: TG - [facility] [id number] [place], [place] [id number] Director: Tomi Malloy [facility], Phone: [phone] Hepatitis A IgM Antibody Negative Negative [facility] Hepatitis B Core IgM Antibody Negative Negative [facility] Comment on above: Performed at: [facility] [address] [id number] Director: Damon Wood PhD, Phone: [phone] Hepatitis B Core Total Antibody Negative Negative [facility] Hepatitis C Interpretation See comment . [facility] Comment on above: Not infected with HC V unless early or acute infection issuspected (which may be delayed in an immunocompromisedindividual), or other evidence exists to indicate HCVinfection. Hepatitis C RNA Quantitative N/A [facility] Creatinine Clearance (Chem N/A [facility] Platelet poor plasma interna tional normalized ratio (INR) by coagulation assay (relatOrdered By: Jojo Stearns on 01-25-2023 INR Coag (PPP) [Relative time] 1.2 {INR} [facility] Comment on above: INR Therapeutic Rang [...] on 01-25-2023 Potassium [Moles/Vol] 3.6 mmol/L 3.5-5.1 [facility] Serum ufzra-5-qglxcndcmia me asurementOrdered By: Jojo Stearns on 01-25-2023 Alpha 1 antitrypsin [Mass/Vol] 157 mg/dL 101-187 [facility] Serum hepatitis B virus surf arleth antibody detectionOrdered By: Jojo Stearns on 01-25-2023 HBV surface Ab Ql (S) Non-Reactive . [facility] Comment on above: Non Reactive: Incons istent with immunity, less than 10 mIU/mL Reactive: Consistent with immunity, greater than 9.9 mIU/mL Serum homogeneous pattern an tinuclear antibody (ANATOLIY) titerOrdered By: Jojo Stearns on 01-25-2023 Homogenous nuclear Ab pattern (S) [Titer] N/A [facility] Serum mitochondria M2 IgG an tibody assay (units/volume)Ordered By: alexander [facility] on 01-25-2023 Mitochondria M2 IgG Qn (S) <20.0 Units 0.0-20.0 [facility] Comment on above: Negative 0.0 - 20.0 Equivocal 20.1 - 24.9 Positive >24.9Mitochondrial (M2) Antibodies are found in 90-96% ofpatients with primary biliary cirrhosis. Serum nuclear antibody titer Ordered By: Jojo Stearns on 01-25-2023 Nuclear Ab (S) [Titer] Negative . [facility] Comment on above: Negative <1:80 Borde rline 1:80 Positive >1:80ICAP nomenclature: AC-0For more information about Hep-2 cell patterns useANApatterns.org, the official website for theInternational Consensus on Antinuclear Antibody (ANATOLIY)Patterns (ICAP).Performed at: [facility] [id number] Director: Damon Wood PhD, Phone: [phone] Serum or plasma alpha 1 anti trypsin phenotyping identification by immunofixationOrdered By: Jojo Stearns on 01-25-2023 Alpha 1 antitrypsin phenotyping Immunofixation Nom Mm . [facility] Comment on above: Phenotype Population A-1-AT [...] reference. Ranges used to confirm phenotype.Performed at: [facility] [id number] Director: Damon Wood PhD, Phone: [phone] at: [address] [id number] Director: Jim Carty MD, Phone: [phone] Serum or plasma gjgkd-8-uyvq protein tumor marker measurement (mass/volume)Ordered By: Jojo Stearns on 01-25-2023 AFP.tumor marker [Mass/Vol] 14.1 ng/mL 0.0-8.4 [facility] Comment on above: [facility] El ectrochemiluminescence Immunoassay(ECLIA)Values obtained with different assay methods or kits cannotbe used interchangeably. Results cannot be interpreted asabsolute evidence of the presence or absence of malignantdisease.This test is not interpretable in females.Performed at: [facility] [id number] Director: Damon Wood PhD, Phone: [phone] Serum or plasma anion gap de terminationOrdered By: Jojo Stearns on 01-25-2023 Anion gap [Moles/Vol] 12.7 mmol/L 6.0-15.0 [facility] Serum or plasma ceruloplasmi n measurement (mass/volume)Ordered By: Jojo Stearns on 01-25-2023 Ceruloplasmin [Mass/Vol] 27.4 mg/dL 16.0-31.0 [facility] Comment on above: Performed at: [address] [id number] Director: Damon Wood PhD, Phone: [phone] Serum or plasma lipoprotein a measurement (moles/volume)Ordered By: Jojo Stearns on 01-25-2023 Lipoprotein a [Moles/Vol] 1.1 Units 0.0-20.0 [facility] Comment on above: Negative 0.0 - 20.0 Equivocal 20.1 - 24.9 Positive >24.9LKM type 1 antibodies are detected in patients withautoimmune hepatitis type 2 and in up to 8% ofpatients with chronic HCV infection. Sodium [Moles/volume] in Ser um or PlasmaOrdered By: Jojo Stearns on 01-25-2023 Sodium [Moles/Vol] 141 mmol/L 136-145 [facility] Urea nitrogen [Mass/volume] in Serum or PlasmaOrdered By: Jojo Stearns on 01-25-2023 Urea nitrogen [Mass/Vol] 20 mg/dL 7-25 [facility] HEPATITIS PANEL, ACUTEon HBsAg Screen Negative Normal Negative [facility] Comment on above: Performed By: #### H EPACUT #### [facility] [address] [address] [address] Poncho Zamarripa HCV AB <0.1 Normal 0.0-0.9 [facility] Comment on above: Performed By: #### H EPACUT #### [facility] [address] [address] [address] Poncho Zamarripa Hep A Ab, IgM Negative Normal Negative [facility] Comment on above: Performed By: #### H EPACUT #### [facility] [address] [place] [address] Dr. Poncho Zamarripa Hep B Core Ab, IgM Negative Normal Negative [facility] Comment on above: Performed By: #### H EPACUT #### [facility] [address] [place] [address] Dr. Poncho Zamarripa Interpretation: Comment Normal [facility] Comment on above: Result Comment: Nega tive Not infected with HCV, unless recent infection is suspected or other evidence exists to indicate HCV infection. Performed By: #### H EPACUT #### [facility] [address] [place] [address] Dr. Poncho Zamarripa US SINGLE QUAD RT [...] ART CAIN Date: 2022-05-08 08:36 Normal [facility] CBC AUTO DIFFon 05-07-2022 BASO # 0.0 103/ul Normal 0.0-0.[address] [facility] Comment on above: Performed By: #### M ALBR #### [facility] [address] [place] [address] Dr. Poncho Zamarripa Basophils/100 WBC (Bld) 0.4 % Normal 0.2-2.[address] [facility] Comment on above: Performed By: #### M ALBR #### [facility] [address] [place] [address] Dr. Poncho Zamarripa EO # 0.2 103/ul Normal 0.0-0.[address] [facility] Comment on above: Performed By: #### M ALBR #### [facility] [address] [place] [address] Dr. Poncho Zamarripa Eosinophils/100 WBC (Bld) 2.7 % Normal 0.9-7.[address] [facility] Comment on above: Performed By: #### M ALBR #### [facility] [address] [place] [address] Dr. Poncho Zamarripa Erythrocyte distribution width (RBC) [Ratio] 11.9 % Normal 11.0-15.[address] [facility] Comment on above: Performed By: #### M ALBR #### [facility] [address] [place] [address] Dr. Poncho Zamarripa Hematocrit (Bld) [Volume fraction] 45.1 % Normal 42.0-54.[address] [facility] Comment on above: Performed By: #### M ALBR #### [facility] [address] [place] [address] Dr. Poncho Zamarripa Hemoglobin (Bld) [Mass/Vol] 15.3 g/dL Normal 14.0-18.[address] [facility] Comment on above: Performed By: #### M ALBR #### [facility] [address] [place] [address] Dr. Poncho Zamarripa IG # 0.02 10e3/ul Normal 0.00-0.[address] [facility] Comment on above: Performed By: #### M ALBR #### [facility] [address] [place] [address] Dr. Poncho Zamarripa IG % 0.4 % Normal 0.0-0.[address] [facility] Comment on above: Performed By: #### M ALBR #### [facility] [address] [place] [address] Dr. Poncho Zamarripa LYMPH # 1.7 103/ul Normal 1.2-3.[address] [facility] Comment on above: Performed By: #### M ALBR #### [facility] [address] [place] [address] Dr. Poncho Zamarrpia Lymphocytes/100 WBC (Bld) 31.3 % Normal 20.5-60.[address] [facility] Comment on above: Performed By: #### M ALBR #### [facility] [address] [place] [address] Dr. Poncho Zamarripa MANUAL DIFF REQ NO Normal [facility] Comment on above: Performed By: #### M ALBR #### [facility] [address] [place] [address] Dr. Poncho Zamarripa MCH (RBC) [Entitic mass] 31.2 pg Normal 25.9-34.[address] [facility] Comment on above: Performed By: #### M ALBR #### [facility] [address] [place] [address] Dr. Poncho Zamarripa MCHC (RBC) [Mass/Vol] 33.9 g/dL Normal 29.9-35.[address] [facility] Comment on above: Performed By: #### M ALBR #### [facility] [address] [place] [address] Dr. Poncho Zamarripa MCV (RBC) [Entitic vol] 91.9 fL Normal 80.0-94.0 [facility] Comment on above: Performed By: #### M ALBR #### [facility] [address] [place] [address] Dr. Poncho Zamarripa MONO # 0.5 103/ul Normal 0.3-0.[address] [facility] Comment on above: Performed By: #### M ALBR #### [facility] [address] [place] [address] Dr. Poncho Zamarripa Monocytes/100 WBC (Bld) 8.6 % Normal 1.7-12.0 [facility] Comment on above: Performed By: #### M ALBR #### [facility] [address] [place] [address] Dr. Poncho Zamarripa NEUT # 3.2 103/ul Normal 1.4-6.[address] [facility] Comment on above: Performed By: #### M ALBR #### [facility] [address] [place] [address] Dr. Poncho Zamarripa Neutrophils/100 WBC (Bld) 56.6 % Normal 43.0-75.[address] [facility] Comment on above: Performed By: #### M ALBR #### [facility] [address] [place] [address] Dr. Poncho Zamarripa Platelet mean volume (Bld) [Entitic vol] 10.4 fL Normal 9.5-13.[address] [facility] Comment on above: Performed By: #### M ALBR #### [facility] [address] [place] [address] Dr. Poncho Zamarripa PLT 102 103/ul Critically low 150-450 [facility] Comment on above: Performed By: #### M ALBR #### [facility] [address] [place] [address] Dr. Poncho Zamarripa RBC 4.91 106/ul Normal 4.70-6.10 [facility] Comment on above: Performed By: #### M ALBR #### [facility] [address] [place] [address] Dr. Poncho Zamarripa WBC 5.6 103/ul Normal 4.0-11.0 [facility] Comment on above: Performed By: #### M ALBR #### [facility] [address] [place] [address] Dr. Poncho Zamarripa FERRITINon 05-07-2022 Ferritin [Mass/Vol] 296.0 ng/mL Normal 26.0-388.[address] [facility] Comment on above: Performed By: #### M ALBR #### [facility] [address] [place] [address] Dr. Poncho Zamarripa GLYCOHEMOGLOBIN A1Con 2021 ADA RECOMMENDATION SEE BELOW Normal [facility] Comment on above: Result Comment: ADA RECOMMENDED LIMIT 4.0 - 6.0 ADA THERAPEUTIC TARGET < 7.0 ACTION SUGGESTED > 7.0 Performed By: #### A 1C #### [facility] [address] [place] [address] Dr. Poncho Zamarripa Glucose [Mass/Vol] 255 mg/dL Normal [facility] Comment on above: Performed By: #### A 1C #### [facility] [address] [place] [address] Dr. Poncho Zamarripa HbA1c (Bld) [Mass fraction] 10.5 % Critically high 4.5-6.[address] [facility] Comment on above: Performed By: #### A 1C #### [facility] [address] [place] [address] Dr. Poncho Zamarripa IRON AND TIBCon 05-07-2022 % SATURATION 37.6 % Normal [facility] Comment on above: Performed By: #### M ALBR #### [facility] [address] [place] [address] Dr. Poncho Zamarripa Iron [Mass/Vol] 115.0 ug/dL Normal 65.0-175.[address] [facility] Comment on above: Performed By: #### M ALBR #### [facility] [address] [place] [address] Dr. Poncho Zamarripa TIBC DIRECT 306.0 ug/dL Normal 250.0-450. [address] [facility] Comment on above: Performed By: #### M ALBR #### [facility] [address] [place] [address] Dr. Poncho Zamarripa LIVER PROFILEon 05-07-2022 Albumin [Mass/Vol] 3.6 g/dL Normal 3.4-5.[address] [facility] Comment on above: Performed By: #### L IVER #### [facility] [address] [place] [address] Dr. Poncho Zamarripa Albumin/Globulin [Mass ratio] 1.0 {ratio} Normal [facility] Comment on above: Performed By: #### L IVER #### [facility] [address] [place] [address] Dr. Poncho Zamarripa ALP [Catalytic activity/Vol] 122 U/L Critically high 46-116 [facility] Comment on above: Performed By: #### L IVER #### [facility] [address] [place] [address] Dr. Poncho Zamarripa ALT [Catalytic activity/Vol] 101 U/L Critically high 16-63 [facility] Comment on above: Performed By: #### L IVER #### [facility] [address] [place] [address] Dr. Poncho Zamarripa AST [Catalytic activity/Vol] 43 U/L Critically high 15-37 [facility] Comment on above: Performed By: #### L IVER #### [facility] [address] [place] [address] Dr. Poncho Zamarripa BILI, CONJUGATED 0.2 mg/dL Normal 0.0-0.[address] [facility] Comment on above: Performed By: #### L IVER #### [facility] [address] [place] [address] Dr. Poncho Zamarripa Bilirubin [Mass/Vol] 0.4 mg/dL Normal 0.2-1.[address] [facility] Comment on above: Performed By: #### L IVER #### [facility] [address] [place] [address] Dr. Poncho Zamarripa Globulin (S) [Mass/Vol] 3.7 g/dL Normal T [facility] Comment on above: Performed By: #### L IVER #### [facility] [address] [place] [address] Dr. Poncho Zamarripa Protein [Mass/Vol] 7.3 g/dL Normal 6.4-8.[address] [facility] Comment on above: Performed By: #### L IVER #### [facility] [address] [place] [address] Dr. Poncho Zamarripa URINE T PROTEIN CREAT RATIOo n 05-07-2022 Protein (U) [Mass/Vol] 6.4 mg/dL Normal <=12.0 [facility] Comment on above: Performed By: #### U RTPCR #### [facility] [address] [place] [address] Dr. Poncho Zamarripa UR PROT CREAT RAT 0.[address] [facility] Comment on above: Performed By: #### U RTPCR #### [facility] [address] [place] [address] Dr. Poncho Zamarripa URINE CREAT 49.58 mg/dL Normal 20.00-300. [address] [facility] Comment on above: Performed By: #### U RTPCR #### [facility] [address] [place] [address] Dr. Poncho Zamarripa CBC AUTO DIFFon 01-28-2022 BASO # 0.0 103/ul Normal 0.0-0.[address] [facility] Comment on above: Performed By: #### C BC #### [facility] [address] [address] [address] Poncho Zamarripa Basophils/100 WBC (Bld) 0.4 % Normal 0.2-2.0 [facility] Comment on above: Performed By: #### C BC #### [facility] [address] [place] [address] Dr. Poncho Zamarripa EO # 0.2 103/ul Normal 0.0-0.[address] [facility] Comment on above: Performed By: #### C BC #### [facility] [address] [place] [address] Dr. Poncho Zamarripa Eosinophils/100 WBC (Bld) 2.3 % Normal 0.9-7.[address] [facility] Comment on above: Performed By: #### C BC #### [facility] [address] [place] [address] Dr. Poncho Zamarripa Erythrocyte distribution width (RBC) [Ratio] 12.4 % Normal 11.0-15.[address] [facility] Comment on above: Performed By: #### C BC #### [facility] [address] [place] [address] Dr. Poncho Zamarripa Hematocrit (Bld) [Volume fraction] 45.6 % Normal 42.0-54.[address] [facility] Comment on above: Performed By: #### C BC #### [facility] [address] [place] [address] Dr. Poncho Zamarripa Hemoglobin (Bld) [Mass/Vol] 15.9 g/dL Normal 14.0-18.[address] [facility] Comment on above: Performed By: #### C BC #### [facility] [address] [place] [address] Dr. Poncho Zamarripa IG # 0.03 10e3/ul Normal 0.00-0.03 [facility] Comment on above: Performed By: #### C BC #### [facility] [address] [place] [address] Dr. Poncho Zamarripa IG % 0.4 % Normal 0.0-0.[address] [facility] Comment on above: Performed By: #### C BC #### [facility] [address] [place] [address] Dr. Poncho Zamarripa LYMPH # 2.6 103/ul Normal 1.2-3.[address] [facility] Comment on above: Performed By: #### C BC #### [facility] [address] [place] [address] Dr. Poncho Zamarripa Lymphocytes/100 WBC (Bld) 35.0 % Normal 20.5-60.[address] [facility] Comment on above: Performed By: #### C BC #### [facility] [address] [place] [address] Dr. Poncho Zamarripa MANUAL DIFF REQ NO Normal [facility] Comment on above: Performed By: #### C BC #### [facility] [address] [place] [address] Dr. Poncho Zamarripa MCH (RBC) [Entitic mass] 31.5 pg Normal 25.9-34.[address] [facility] Comment on above: Performed By: #### C BC #### [facility] [address] [place] [address] Dr. Poncho Zamarripa MCHC (RBC) [Mass/Vol] 34.9 g/dL Normal 29.9-35.[address] [facility] Comment on above: Performed By: #### C BC #### [facility] [address] [place] [address] Dr. Poncho Zamarripa MCV (RBC) [Entitic vol] 90.5 fL Normal 80.0-94.0 [facility] Comment on above: Performed By: #### C BC #### [facility] [address] [place] [address] Dr. Poncho Zamarripa MONO # 0.7 103/ul Normal 0.3-0.[address] [facility] Comment on above: Performed By: #### C BC #### [facility] [address] [place] [address] Dr. Poncho Zamarripa Monocytes/100 WBC (Bld) 9.9 % Normal 1.7-12.0 [facility] Comment on above: Performed By: #### C BC #### [facility] [address] [place] [address] Dr. Poncho Zamarripa NEUT # 3.8 103/ul Normal 1.4-6.5 [facility] Comment on above: Performed By: #### C BC #### [facility] [address] [address] [address] Poncho Zamarripa Neutrophils/100 WBC (Bld) 52.0 % Normal 43.0-75.[address] [facility] Comment on above: Performed By: #### C BC #### [facility] [address] [address] [address] Poncho Zamarripa Platelet mean volume (Bld) [Entitic vol] 10.7 fL Normal 9.5-13.5 [facility] Comment on above: Performed By: #### C BC #### [facility] [address] [place] [address] Dr. Poncho Zamarripa PLT 125 103/ul Critically low 150-[address] [facility] Comment on above: Result Comment: NO P LATELET CLUMPING SEN ON PERIPHERAL SMEAR Performed By: #### C BC #### [facility] [address] [place] [address] Dr. Poncho Zamarripa RBC 5.04 106/ul Normal 4.70-6.10 [facility] Comment on above: Performed By: #### C BC #### [facility] [address] [place] [address] Dr. Poncho Zamarripa WBC 7.3 103/ul Normal 4.0-11.0 [facility] Comment on above: Performed By: #### C BC #### [facility] [address] [place] [address] Dr. Poncho Zamarripa GLYCOHEMOGLOBIN A1Con 2021 ADA RECOMMENDATION SEE BELOW Normal [facility] Comment on above: Result Comment: ADA RECOMMENDED LIMIT 4.0 - 6.0 ADA THERAPEUTIC TARGET < 7.0 ACTION SUGGESTED > 7.0 Performed By: #### A 1C #### [facility] [address] [place] [address] Dr. Poncho Zamarripa Glucose [Mass/Vol] 243 mg/dL Normal [facility] Comment on above: Performed By: #### A 1C #### [facility] [address] [address] [address] Poncho Zamarripa HbA1c (Bld) [Mass fraction] 10.1 % Critically high 4.5-6.[address] [facility] Comment on above: Performed By: #### A 1C #### [facility] [address] [place] [address] Dr. Poncho Zamarripa MICROALBUMIN, RAND URon 07-2 mALB 3.3 mg/L Normal <=30.[address] [facility] Comment on above: Performed By: #### M ALBR #### [facility] [address] [place] [address] Dr. Poncho Zamarripa PROF CHEM 8 (BAS METB)on Anion gap [Moles/Vol] 10.9 mmol/L Normal Th [facility] Comment on above: Performed By: #### M ALBR #### [facility] [address] [place] [address] Dr. Poncho Zamarripa Calcium [Mass/Vol] 9.2 mg/dL Normal 8.5-10.[address] [facility] Comment on above: Performed By: #### M ALBR #### [facility] [address] [place] [address] Dr. Poncho Zamarripa Chloride [Moles/Vol] 103 mmol/L Normal 98-[address] [facility] Comment on above: Performed By: #### M ALBR #### [facility] [address] [place] [address] Dr. Poncho Zamarripa CO2 [Moles/Vol] 29.4 mmol/L Normal 21.0-32.0 [facility] Comment on above: Performed By: #### M ALBR #### [facility] [address] [place] [address] Dr. Poncho Zamarripa Creatinine [Mass/Vol] 0.83 mg/dL Normal 0.70-1.30 [facility] Comment on above: Performed By: #### M ALBR #### [facility] [address] [place] [address] Dr. Poncho Zamarripa EGFR-AF YEMENI >60 Normal >=60 [facility] Comment on above: Performed By: #### M ALBR #### [facility] [address] [address] [address] Poncho Zamarripa EGFR-NON AF YEMENI >60 Normal >=[address] [facility] Comment on above: Performed By: #### M ALBR #### [facility] [address] [address] [address] Poncho Zamarripa Glucose [Mass/Vol] 245 mg/dL Critically high 74-106 [facility] Comment on above: Performed By: #### M ALBR #### [facility] [address] [address] [address] Poncho Zamarripa Potassium [Moles/Vol] 4.3 mmol/L Normal 3.5-5.[address] [facility] Comment on above: Performed By: #### M ALBR #### [facility] [address] [place] [address] Dr. Poncho Zamarripa Sodium [Moles/Vol] 139 mmol/L Normal 136-[address] [facility] Comment on above: Performed By: #### M ALBR #### [facility] [address] [address] [address] Poncho Zamarripa Urea nitrogen [Mass/Vol] 17.0 mg/dL Normal 7.0-18.[address] [facility] Comment on above: Performed By: #### M ALBR #### [facility] [address] [place] [address] Dr. Poncho Zamarripa Urea nitrogen/Creatinine [Mass ratio] 20.5 mg/mg Normal [facility] Comment on above: Performed By: #### M ALBR #### [facility] [address] [address] [address] Poncho Zamarripa SGOTon 01-28-2022 AST [Catalytic activity/Vol] 72 U/L Critically high 15-[address] [facility] Comment on above: Performed By: #### M ALBR #### [facility] [address] [address] [address] Poncho Zamarripa SGPTon 01-28-2022 ALT [Catalytic activity/Vol] 131 U/L Critically high 16-[address] [facility] Comment on above: Performed By: #### A ST, BMP, ALT #### [facility] [address] [place] [address] Dr. Poncho Zamarripa CBC Auto Differentialon 04-02 Basophils (Bld) [#/Vol] 0.00 10*3/uL [place] Basophils/100 WBC (Bld) 0 % 0 - 2 % M [place], [place] Differential Type NOT REPORTED [place] Eosinophils (Bld) [#/Vol] 0.00 10*3/uL [place] Eosinophils/100 WBC (Bld) 0 % Low 1 - 4 % [place] Erythrocyte distribution width (RBC) [Ratio] 12.5 % 11.8 - 14.4 % [place] Hematocrit (Bld) [Volume fraction] 40.5 % Low 40.7 - 50.3 % [place] Hemoglobin (Bld) [Mass/Vol] 13.6 g/dL 13 - 17 g/dL [place] Immature granulocytes (Bld) [#/Vol] 0.00 10*3/uL [place] Immature granulocytes (Bld) [#/Vol] 0 % 0 [place] Interpretation and review of laboratory results Abnormal [place] Lymphocytes (Bld) [#/Vol] 1.12 10*3/uL [place] Lymphocytes/100 WBC (Bld) 11 % Low 24 - 44 % [place] MCH (RBC) [Entitic mass] 31.6 pg 25.2 - 33.5 pg [place] MCHC (RBC) [Mass/Vol] 33.6 g/dL 28.4 - 34.8 g/dL [place] MCV (RBC) [Entitic vol] 94.0 fL 82.6 - 102.9 fL [place] Monocytes (Bld) [#/Vol] 0.92 10*3/uL [place] Monocytes/100 WBC (Bld) 9 % High 1 - 7 % M [place] Morphology Yordy (Bld) [Interp] Normal [place] Platelet mean volume (Bld) [Entitic vol] 10.6 fL 8.1 - 13.5 fL [place] Platelets (Bld) [#/Vol] NOT REPORTED [place] Platelets (Bld) [#/Vol] 150 10*3/uL [place] RBC (Bld) [#/Vol] 4.31 10*6/uL 4.21 - 5.77 m/uL [place] RBC morphology finding Nom (Bld) NOT REPORTED [place] Segmented neutrophils/100 WBC (Bld) 80 % High 36 - 66 % [place] Segs Absolute 8.16 High [place] WBC (Bld) [#/Vol] 0.0 10*3/uL 0.0 per 100 WBC [place] WBC (Bld) [#/Vol] 10.2 10*3/uL [place] WBC Morphology NOT REPORTED [place] CBC with Diffon 04-18-2019 Abs. Basophil 0.00 k/uL Normal 0.0-0.[address] [facility] Comment on above: Performed By: #### P T, IOCAL, CBC, IPF, HARVEY, CMPX, MG, TAMIE, TRIG, LIP #### [facility] [address] [place], [place] [id number] [employer] Adjuster: Bunny Moy MD Abs.Imm.Granulocyte 0.00 k/uL Normal 0.00-0.[address] [facility] Comment on above: Performed By: #### P T, IOCAL, CBC, IPF, HARVEY, CMPX, MG, TAMIE, TRIG, LIP #### [facility] [address] [place] [address] [id number] [employer] Adjuster: Bunny Moy MD Abs.Neutrophil (Seg) 8.16 k/uL High 1.8-7.7 [facility] Comment on above: Performed By: #### P T, IOCAL, CBC, IPF, HARVEY, CMPX, MG, TAMIE, TRIG, LIP #### [address] [id number] [employer] Adjuster: Bunny Moy MD Basophils/100 WBC (Bld) 0 % Normal 0-2 M [facility] Comment on above: Performed By: #### P T, IOCAL, CBC, IPF, HARVEY, CMPX, MG, TAMIE, TRIG, LIP #### [address] [address] [employer] Adjuster: Bunny Moy MD Eosinophils (Bld) [#/Vol] 0.00 10*3/uL Normal 0.0-0.[address] [facility] Comment on above: Performed By: #### P T, IOCAL, CBC, IPF, HARVEY, CMPX, MG, TAMIE, TRIG, LIP #### [place] [address] [employer] Adjuster: Bunny Moy MD Eosinophils/100 WBC (Bld) 0 % Low 1-[address] [facility] Comment on above: Performed By: #### P T, IOCAL, CBC, IPF, HARVEY, CMPX, MG, TAMIE, TRIG, LIP #### [place] [address] [employer] Adjuster: Bunny Moy MD Immature granulocytes (Bld) [#/Vol] 0 % Normal [address] [facility] Comment on above: Performed By: #### P T, IOCAL, CBC, IPF, HARVEY, CMPX, MG, TAMIE, TRIG, LIP #### [place] [address] [employer] Adjuster: Bunny Moy MD Lymphocytes (Bld) [#/Vol] 1.12 10*3/uL Normal 1.0-4.[address] [facility] Comment on above: Performed By: #### P T, IOCAL, CBC, IPF, HARVEY, CMPX, MG, TAMIE, TRIG, LIP #### [address] [address] [employer] Adjuster: Bunny Moy MD Lymphocytes/100 WBC (Bld) 11 % Low 24-[address] [facility] Comment on above: Performed By: #### P T, IOCAL, CBC, IPF, HARVEY, CMPX, MG, TAMIE, TRIG, LIP #### [address] [address] [employer] Adjuster: Bunny Moy MD Monocytes (Bld) [#/Vol] 0.92 10*3/uL High 0.1-0.[address] [facility] Comment on above: Performed By: #### P T, IOCAL, CBC, IPF, HARVEY, CMPX, MG, TAMIE, TRIG, LIP #### [address] [address] [employer] Adjuster: Bunny Moy MD Monocytes/100 WBC (Bld) 9 % High 1-7 M [facility] Comment on above: Performed By: #### P T, IOCAL, CBC, IPF, HARVEY, CMPX, MG, TAMIE, TRIG, LIP #### [place] [address] [employer] Adjuster: Bunny Moy MD Morphology Yordy (Bld) [Interp] Normal Normal [facility] Comment on above: Performed By: #### P T, IOCAL, CBC, IPF, HARVEY, CMPX, MG, TAMIE, TRIG, LIP #### [address] [address] [employer] Adjuster: Bunny Moy MD Neutrophil (Seg) 80 % High 36-66 [facility] Comment on above: Performed By: #### P T, IOCAL, CBC, IPF, HARVEY, CMPX, MG, TAMIE, TRIG, LIP #### [address] [address] [employer] Adjuster: Bunny Moy MD Erythrocyte distribution width (RBC) [Ratio] 12.5 % Normal 11.8-14.[address] [facility] Comment on above: Performed By: #### P T, IOCAL, CBC, IPF, HARVEY, CMPX, MG, TAMIE, TRIG, LIP #### [place] [address] [employer] Adjuster: Bunny Moy MD Hematocrit (Bld) [Volume fraction] 40.5 % Low 40.7-50.[address] [facility] Comment on above: Performed By: #### P T, IOCAL, CBC, IPF, HARVEY, CMPX, MG, TAMIE, TRIG, LIP #### [place] [address] [employer] Adjuster: Bunny Moy MD Hemoglobin (Bld) [Mass/Vol] 13.6 g/dL Normal 13.0-17.[address] [facility] Comment on above: Performed By: #### P T, IOCAL, CBC, IPF, HARVEY, CMPX, MG, TAMIE, TRIG, LIP #### [place] [address] [employer] Adjuster: Bunny Moy MD MCH (RBC) [Entitic mass] 31.6 pg Normal 25.2-33.[address] [facility] Comment on above: Performed By: #### P T, IOCAL, CBC, IPF, HARVEY, CMPX, MG, TAMIE, TRIG, LIP #### [place] [address] [employer] Adjuster: Bunny Moy MD MCHC (RBC) [Mass/Vol] 33.6 g/dL Normal 28.4-34.8 [facility] Comment on above: Performed By: #### P T, IOCAL, CBC, IPF, HARVEY, CMPX, MG, TAMIE, TRIG, LIP #### [place] [address] [employer] Adjuster: Bunny Moy MD MCV (RBC) [Entitic vol] 94.0 fL Normal 82.6-102.9 M [facility] Comment on above: Performed By: #### P T, IOCAL, CBC, IPF, HARVEY, CMPX, MG, TAMIE, TRIG, LIP #### [place] [address] [employer] Adjuster: Bunny Moy MD NRBC Automated 0.0 per 100 WBC Normal 0.[address] [facility] Comment on above: Performed By: #### P T, IOCAL, CBC, IPF, HARVEY, CMPX, MG, TAMIE, TRIG, LIP #### [place] [address] [employer] Adjuster: Bunny Moy MD Platelet mean volume (Bld) [Entitic vol] 10.6 fL Normal 8.1-13.[address] [facility] Comment on above: Performed By: #### P T, IOCAL, CBC, IPF, HARVEY, CMPX, MG, TAMIE, TRIG, LIP #### [place] [address] [employer] Adjuster: Bunny Moy MD Platelets (Bld) [#/Vol] 150 10*3/uL Normal 138-[address] [facility] Comment on above: Performed By: #### P T, IOCAL, CBC, IPF, HARVEY, CMPX, MG, TAMIE, TRIG, LIP #### [place] [address] [employer] Adjuster: Bunny Moy MD RBC (Bld) [#/Vol] 4.31 10*6/uL Normal 4.21-5.[address] [facility] Comment on above: Performed By: #### P T, IOCAL, CBC, IPF, HARVEY, CMPX, MG, TAMIE, TRIG, LIP #### [address] [address] [employer] Adjuster: Bunny Moy MD WBC (Bld) [#/Vol] 10.2 10*3/uL Normal 3.5-11.[address] [facility] Comment on above: Performed By: #### P T, IOCAL, CBC, IPF, HARVEY, CMPX, MG, TAMIE, TRIG, LIP #### [address] [address] [employer] Machine Adjuster: Bunny Moy MD Auto Diff Performed NOT REPORTED Normal [facility] Comment on above: Performed By: #### P T, IOCAL, CBC, IPF, HARVEY, CMPX, MG, TAMIE, TRIG, LIP #### [address] [address] [employer] Machine Adjuster: Bunny Moy MD Platelets (Bld) [#/Vol] NOT REPORTED Normal [facility] Comment on above: Performed By: #### P T, IOCAL, CBC, IPF, HARVEY, CMPX, MG, TAMIE, TRIG, LIP #### [address] [address] [employer]ing Machine Adjuster: Bunny Moy MD RBC morphology finding Nom (Bld) NOT REPORTED Normal [facility] Comment on above: Performed By: #### P T, IOCAL, CBC, IPF, HARVEY, CMPX, MG, TAMIE, TRIG, LIP #### [address] [address] [employer]ing Machine Adjuster: Bunny Moy MD WBC Morphology NOT REPORTED Normal [facility] Comment on above: Performed By: #### P T, IOCAL, CBC, IPF, HARVEY, CMPX, MG, TAMIE, TRIG, LIP #### [address] [address] [employer]ing Machine Adjuster: Bunny Moy MD MAGNESIUMon 04-18-2019 Magnesium [Mass/Vol] 2.3 mg/dL 1.6 - 2 .6 mg/dL [facility], [place] Magnesiumon 04-18-2019 Magnesium [Mass/Vol] 2.3 mg/dL Normal 1.6-2.6 [facility] Comment on above: Performed By: #### P T, IOCAL, CBC, IPF, HARVEY, CMPX, MG, TAMIE, TRIG, LIP #### [facility] [employer] [address] [phone] Casting Machine Adjuster: Bunny Moy MD POC Glucose Fingerstickon Glucose [Mass/Vol] 214 mg/dL High 75 - 110 mg/dL [place] Interpretation and review of laboratory results Abnormal [place] Glucose [Mass/Vol] 165 mg/dL High 75 - 110 mg/dL [place] Interpretation and review of laboratory results Abnormal [place] RENAL FUNCTION PANELon 04-18 Albumin [Mass/Vol] 2.8 g/dL Low 3.5 - 5.2 g/dL [place] Anion gap [Moles/Vol] 9 mmol/L 9 - 17 mmol/L [place] Bun/Cre Ratio NOT REPORTED [place] Calcium [Mass/Vol] 8.1 mg/dL Low 8.6 - 10. 4 mg/dL [place] Chloride [Moles/Vol] 103 mmol/L 98 - 10 7 mmol/L [place] CO2 [Moles/Vol] 24 mmol/L 20 - 31 mmol/L [place] Creatinine [Mass/Vol] 0.49 mg/dL Low 0.7 - 1.2 mg/dL [place] GFR >60 >60 mL/min [place] GFR Non- >60 >60 mL/min [place] GFR/1.73 sq M predicted among non-blacks MDRD (S/P/Bld) [Vol rate/Area] NOT REPORTED [place] GFR/1.73 sq M predicted among non-blacks MDRD (S/P/Bld) [Vol rate/Area] [place] Comment on above: Average GFR for 60-6 9 years old: 85 mL/min/1.73sq m Chronic Kidney Disease: <60 mL/min/1.73sq m Kidney failure: <15 mL/min/1.73sq m eGFR calculated using average adult body mass. Additional eGFR calculator available at: http://www.[employer]/multiple_crcl_2012.htm Glucose [Mass/Vol] 230 mg/dL High 70 - 99 mg/dL [place] Interpretation and review of laboratory results Abnormal [place] Phosphate [Mass/Vol] 3.1 mg/dL 2.5 - 4 .5 mg/dL [place] Potassium [Moles/Vol] 4.2 mmol/L 3.7 - 5.3 mmol/L [place] Sodium [Moles/Vol] 136 mmol/L 135 - 144 mmol/L [place] Urea nitrogen [Mass/Vol] 13 mg/dL 8 - 23 mg/dL [place] Renal Function Panelon 04-18 (cont.) Normal [facility] Comment on above: Result Comment: Aver age GFR for 60-69 years old: 85 mL/min/1.73sq m Chronic Kidney Disease: <60 mL/min/1.73sq m Kidney failure: <15 mL/min/1.73sq m eGFR calculated using average adult body mass. Additional eGFR calculator available at: http://www.[employer]/multiple_crcl_2012.htm Performed By: #### P T, IOCAL, CBC, IPF, HARVEY, CMPX, MG, TAMIE, TRIG, LIP #### [employer] [address] [place] [phone] Casting Machine Adjuster: Bunny Moy MD Albumin [Mass/Vol] 2.8 g/dL Low 3.5-5.[address] [facility] Comment on above: Performed By: #### P T, IOCAL, CBC, IPF, HARVEY, CMPX, MG, TAMIE, TRIG, LIP #### [employer] [address] [place] [phone] Casting Machine Adjuster: Bunny Moy MD Anion gap [Moles/Vol] 9 mmol/L Normal - [facility] Comment on above: Performed By: #### P T, IOCAL, CBC, IPF, HARVEY, CMPX, MG, TAMIE, TRIG, LIP #### [address] [address] Casting Machine Adjuster: Bunny Moy MD Calcium [Mass/Vol] 8.1 mg/dL Low 8.6-10.[address] [facility] Comment on above: Performed By: #### P T, IOCAL, CBC, IPF, HARVEY, CMPX, MG, TAMIE, TRIG, LIP #### [address] [address] Casting Machine Adjuster: Bunny Moy MD Chloride [Moles/Vol] 103 mmol/L Normal 98-107 [facility] Comment on above: Performed By: #### P T, IOCAL, CBC, IPF, HARVEY, CMPX, MG, TAMIE, TRIG, LIP #### [address] [address] [employer]ing Machine Adjuster: Bunny Moy MD CO2 [Moles/Vol] 24 mmol/L Normal 20-[address] [facility] Comment on above: Performed By: #### P T, IOCAL, CBC, IPF, HARVEY, CMPX, MG, TAMIE, TRIG, LIP #### [address] [address] Casting Machine Adjuster: Bunny Moy MD Creatinine [Mass/Vol] 0.49 mg/dL Low 0.70-1.20 [facility] Comment on above: Performed By: #### P T, IOCAL, CBC, IPF, HARVEY, CMPX, MG, TAMIE, TRIG, LIP #### [address] [address] Casting Machine Adjuster: Bunny Moy MD GFR, Amer >60 Normal >60 [facility] Comment on above: Performed By: #### P T, IOCAL, CBC, IPF, HARVEY, CMPX, MG, TAMIE, TRIG, LIP #### [address] [phone] Casting Machine Adjuster: Bunny Moy MD GFR,non Amer >60 Normal >60 [facility] Comment on above: Performed By: #### P T, IOCAL, CBC, IPF, HARVEY, CMPX, MG, TAMIE, TRIG, LIP #### [address] [address] Casting Machine Adjuster: Bunny Moy MD Glucose [Mass/Vol] 230 mg/dL High 70-[address] [facility] Comment on above: Performed By: #### P T, IOCAL, CBC, IPF, HARVEY, CMPX, MG, TAMIE, TRIG, LIP #### [address] [address] Casting Machine Adjuster: Bunny Moy MD Phosphorus, Inorg. 3.1 mg/dL Normal 2.5-4.[address] [facility] Comment on above: Performed By: #### P T, IOCAL, CBC, IPF, HARVEY, CMPX, MG, TAMIE, TRIG, LIP #### [address] [address] Casting Machine Adjuster: Bunny Moy MD Potassium [Moles/Vol] 4.2 mmol/L Normal 3.7-5.3 [facility] Comment on above: Performed By: #### P T, IOCAL, CBC, IPF, HARVEY, CMPX, MG, TAMIE, TRIG, LIP #### [address] [address] Casting Machine Adjuster: Bunny Moy MD Sodium [Moles/Vol] 136 mmol/L Normal 135-[address] [facility] Comment on above: Performed By: #### P T, IOCAL, CBC, IPF, HARVEY, CMPX, MG, TAMIE, TRIG, LIP #### [address] [address] Casting Machine Adjuster: Bunny Moy MD Urea nitrogen [Mass/Vol] 13 mg/dL Normal 8-[address] [facility] Comment on above: Performed By: #### P T, IOCAL, CBC, IPF, HARVEY, CMPX, MG, TAMIE, TRIG, LIP #### [address] [phone] Casting [employer] Adjuster: Bunny Moy MD BUN/CRE Ratio NOT REPORTED Normal 9-[address] [facility] Comment on above: Performed By: #### P T, IOCAL, CBC, IPF, HARVEY, CMPX, MG, TAMIE, TRIG, LIP #### [address] [phone] Casting Machine Adjuster: Bunny Moy MD Staging: NOT REPORTED Normal [facility] Comment on above: Performed By: #### P T, IOCAL, CBC, IPF, HARVEY, CMPX, MG, TAMIE, TRIG, LIP #### [address] [phone] Casting Machine Adjuster: Bunny Moy MD APTTon 04-17-2019 aPTT Coag (Bld) [Time] 24.1 s Normal 20.5-30.5 [facility] Comment on above: Performed By: #### P T, IOCAL, CBC, IPF, HARVEY, CMPX, MG, TAMIE, TRIG, LIP #### [address] [phone] [employer]ing Machine Adjuster: Bunny Moy MD aPTT Coag (Bld) [Time] 24.1 s [place] Amylaseon 04-17-2019 Amylase [Catalytic activity/Vol] 87 U/L Normal 28-[address] [facility] Comment on above: Performed By: #### P T, IOCAL, CBC, IPF, HARVEY, CMPX, MG, TAMIE, TRIG, LIP #### [address] [phone] Casting Machine Adjuster: Bunny Moy MD Lipaseon 04-17-2019 Lipase [Catalytic activity/Vol] 140 U/L High 13-[address] [facility] Comment on above: Performed By: #### P T, IOCAL, CBC, IPF, HARVEY, CMPX, MG, TAMIE, TRIG, LIP #### [address] [address] Casting Machine Adjuster: Bunny Moy MD Liver Profileon 04-17-2019 Albumin [Mass/Vol] 2.7 g/dL Low 3.5-5.[address] [facility] Comment on above: Performed By: #### P T, IOCAL, CBC, IPF, HARVEY, CMPX, MG, TAMIE, TRIG, LIP #### [facility] [address] [place] [phone] Casting Machine Adjuster: Bunny Moy MD Albumin/Globulin [Mass ratio] 0.8 {ratio} Low 1.0-2.[address] [facility] Comment on above: Performed By: #### P T, IOCAL, CBC, IPF, HARVEY, CMPX, MG, TAMIE, TRIG, LIP #### [address] [address] Casting Machine Adjuster: Bunny Moy MD Alkaline Phos 69 U/L Normal 40-[address] [facility] Comment on above: Performed By: #### P T, IOCAL, CBC, IPF, HARVEY, CMPX, MG, TAMIE, TRIG, LIP #### [address] [address] Casting Machine Adjuster: Bunny Moy MD ALT [Catalytic activity/Vol] 44 U/L High 5-[address] [facility] Comment on above: Performed By: #### P T, IOCAL, CBC, IPF, HARVEY, CMPX, MG, TAMIE, TRIG, LIP #### [address] [address] Casting Machine Adjuster: Bunny Moy MD AST [Catalytic activity/Vol] 24 U/L Normal <[address] [facility] Comment on above: Performed By: #### P T, IOCAL, CBC, IPF, HARVEY, CMPX, MG, TAMIE, TRIG, LIP #### [address], [place] [phone] Casting Machine Adjuster: Bunny Moy MD Bilirubin Ql (U) 1.05 mg/dL Normal 0.3-1.2 [facility] Comment on above: Performed By: #### P T, IOCAL, CBC, IPF, HARVEY, CMPX, MG, TAMIE, TRIG, LIP #### [address] [phone] Casting Machine Adjuster: Bunny Moy MD Bilirubin, Indirect 0.64 mg/dL Normal 0.00-1.[address] [facility] Comment on above: Performed By: #### P T, IOCAL, CBC, IPF, HARVEY, CMPX, MG, TAMIE, TRIG, LIP #### [address] [phone] Casting Machine Adjuster: Bunny Moy MD Bilirubin.direct [Mass/Vol] 0.41 mg/dL High <0.[address] [facility] Comment on above: Performed By: #### P T, IOCAL, CBC, IPF, HARVEY, CMPX, MG, TAMIE, TRIG, LIP #### [address] [address] Casting Machine Adjuster: Bunny Moy MD Protein [Mass/Vol] 6.2 g/dL Low 6.4-8.[address] [facility] Comment on above: Performed By: #### P T, IOCAL, CBC, IPF, HARVEY, CMPX, MG, TAMIE, TRIG, LIP #### [address] [phone] Casting [employer] Adjuster: Bunny Moy MD POC Glucose Fingerstickon Glucose [Mass/Vol] 225 mg/dL High 75 - 110 mg/dL [place] Interpretation and review of laboratory results Abnormal [place] Glucose [Mass/Vol] 227 mg/dL High 75 - 110 mg/dL [place] Interpretation and review of laboratory results Abnormal [place] Glucose [Mass/Vol] 166 mg/dL High 75 - 110 mg/dL [place] Interpretation and review of laboratory results Abnormal [place] Glucose [Mass/Vol] 132 mg/dL High 75 - 110 mg/dL [place] Interpretation and review of laboratory results Abnormal [place] Glucose [Mass/Vol] 123 mg/dL High 75 - 110 mg/dL [place] Interpretation and review of laboratory results Abnormal [place] PROTIME-INRon 04-17-2019 INR Coag (PPP) [Relative time] 1.1 {INR} [place] Comment on above: Therapeutic Range: Moderate Anticoagulant Intensity: INR = 2.0-3.0 High Anticoagulant Intensity: INR = 2.5-3.5 PT Coag (PPP) [Time] 11.7 s [place] PTon 04-17-2019 INR Coag (PPP) [Relative time] 1.1 {INR} Normal [facility] Comment on above: Result Comment: Therapeutic Range: Moderate Anticoagulant Intensity: INR = 2.0-3.0 High Anticoagulant Intensity: INR = 2.5-3.5 Performed By: #### P T, IOCAL, CBC, IPF, HARVEY, CMPX, MG, TAMIE, TRIG, LIP #### [employer] [address] [place] [phone] Casting Machine Adjuster: Bunny Moy MD PT Coag (PPP) [Time] 11.7 s Normal 9.0-12.0 [facility] Comment on above: Performed By: #### P T, IOCAL, CBC, IPF, HARVEY, CMPX, MG, TAMIE, TRIG, LIP #### [employer] [address] [place] [phone] [employer]ing Machine Adjuster: Bunny Moy MD Surgical Pathologyon 019 Surgical Pathology (NOTE) [id number] [facility] ANATOMIC PATHOLOGY [address] [place] [phone] SURGICAL PATHOLOGY CONSULTATION Patient Name: CARDONAPATY Abdi Med Rec: [id number] Path Number: [id number] Collected: 04/17/2019 Received: 04/17/2019 Reported: 04/18/2019 16:10 -- Diagnosis -- GALLBLADDER, CHOLECYSTECTOMY: - ACUTE AND CHRONIC CHOLECYSTITIS. - CHOLELITHIASIS. - BENIGN CYSTIC DUCT LYMPH NODE WITH MILD REACTIVE FEATURES AND FEW LIPOGRANULOMATA. Emil Franz, Electronically Signed Out sls/04/18/2019 Clinical Information Pre-op Diagnosis: GALLSTONES Operative Findings: [...] is pink-ricci and focally flattened and granular. Ostomy Nurse sections 1cs with margin inked black. tm Microscopic Description Microscopic examination performed. Normal [facility] Comment on above: Performed By: #### P T, IOCAL, CBC, IPF, HARVEY, CMPX, MG, TAMIE, TRIG, LIP #### [facility] [employer] [address] [place] [address] [employer]ing Machine Adjuster: Bunny Moy MD Amylaseon 04-16-2019 Amylase [Catalytic activity/Vol] 87 U/L 28 - 100 U/L [place] CBC Auto Differentialon 04-02 Basophils (Bld) [#/Vol] 0.07 10*3/uL [place] Basophils/100 WBC (Bld) 1 % 0 - 2 % [place] Differential Type NOT REPORTED [place] Eosinophils (Bld) [#/Vol] 0.24 10*3/uL [place] Eosinophils/100 WBC (Bld) 3 % 1 - 4 % [place] Erythrocyte distribution width (RBC) [Ratio] 12.6 % 11.8 - 14.4 % [place] Hematocrit (Bld) [Volume fraction] 42.9 % 40.7 - 50.3 % [place] Hemoglobin (Bld) [Mass/Vol] 14.1 g/dL 13 - 17 g/dL [place] Immature granulocytes (Bld) [#/Vol] 3 % High 0 [place] Immature granulocytes (Bld) [#/Vol] 0.27 10*3/uL [place] Interpretation and review of laboratory results Abnormal [place] Lymphocytes (Bld) [#/Vol] 0.81 10*3/uL Low [place] Lymphocytes/100 WBC (Bld) 9 % Low 24 - 43 % [place] MCH (RBC) [Entitic mass] 31.3 pg 25.2 - 33.5 pg [place] MCHC (RBC) [Mass/Vol] 32.9 g/dL 28.4 - 34.8 g/dL [place] MCV (RBC) [Entitic vol] 95.3 fL 82.6 - 102.9 fL [place] Monocytes (Bld) [#/Vol] 1.27 10*3/uL High [place] Monocytes/100 WBC (Bld) 13 % High 3 - 12 % M [place] Platelet mean volume (Bld) [Entitic vol] NOT REPORTED 8.1 - 13.5 fL [place] Platelets (Bld) [#/Vol] See Reflexed IPF Result [place] Platelets (Bld) [#/Vol] NOT REPORTED [place] RBC (Bld) [#/Vol] 4.50 10*6/uL 4.21 - 5.77 m/uL [place] RBC morphology finding Nom (Bld) NOT REPORTED [place] Segmented neutrophils/100 WBC (Bld) 72 % High 36 - 65 % [place] Segs Absolute 6.81 [place] WBC (Bld) [#/Vol] 9.5 10*3/uL [place] WBC (Bld) [#/Vol] 0.0 10*3/uL 0.0 per 100 WBC [place] WBC Morphology NOT REPORTED [place] CBC with Diffon 04-16-2019 Abs. Basophil 0.07 k/uL Normal 0.00-0.[address] [facility] Comment on above: Performed By: #### P T, IOCAL, CBC, IPF, HARVEY, CMPX, MG, TAMIE, TRIG, LIP #### [address] [address] [employer]ing Machine Adjuster: Bunny Moy MD Abs.Imm.Granulocyte 0.27 k/uL Normal 0.00-0.[address] [facility] Comment on above: Performed By: #### P T, IOCAL, CBC, IPF, HARVEY, CMPX, MG, TAMIE, TRIG, LIP #### [address] [address] [employer]ing Machine Adjuster: Bunny Moy MD Abs.Neutrophil (Seg) 6.81 k/uL Normal 1.50-8.10 [facility] Comment on above: Performed By: #### P T, IOCAL, CBC, IPF, HARVEY, CMPX, MG, TAMIE, TRIG, LIP #### [address] [address] [employer]ing Machine Adjuster: Bunny Moy MD Basophils/100 WBC (Bld) 1 % Normal 0-2 M [facility] Comment on above: Performed By: #### P T, IOCAL, CBC, IPF, HARVEY, CMPX, MG, TAMIE, TRIG, LIP #### [address] [address] [employer]ing Machine Adjuster: Bunny Moy MD Eosinophils (Bld) [#/Vol] 0.24 10*3/uL Normal 0.00-0.[address] [facility] Comment on above: Performed By: #### P T, IOCAL, CBC, IPF, HARVEY, CMPX, MG, TAMIE, TRIG, LIP #### [address] [phone] [employer] Adjuster: Bunny Moy MD Eosinophils/100 WBC (Bld) 3 % Normal 1-[address] [facility] Comment on above: Performed By: #### P T, IOCAL, CBC, IPF, HARVEY, CMPX, MG, TAMIE, TRIG, LIP #### [address] [address] [employer]ing Machine Adjuster: Bunny Moy MD Erythrocyte distribution width (RBC) [Ratio] 12.6 % Normal 11.8-14.[address] [facility] Comment on above: Performed By: #### P T, IOCAL, CBC, IPF, HARVEY, CMPX, MG, TAMIE, TRIG, LIP #### [place] [address] [employer]ing Machine Adjuster: Bunny Moy MD Hematocrit (Bld) [Volume fraction] 42.9 % Normal 40.7-50.[address] [facility] Comment on above: Performed By: #### P T, IOCAL, CBC, IPF, HARVEY, CMPX, MG, TAMIE, TRIG, LIP #### [place] [address] [employer]ing Machine Adjuster: Bunny Moy MD Hemoglobin (Bld) [Mass/Vol] 14.1 g/dL Normal 13.0-17.[address] [facility] Comment on above: Performed By: #### P T, IOCAL, CBC, IPF, HARVEY, CMPX, MG, TAMIE, TRIG, LIP #### [address] [address] [employer]ing Machine Adjuster: Bunny Moy MD Immature granulocytes (Bld) [#/Vol] 3 % High [address] [facility] Comment on above: Performed By: #### P T, IOCAL, CBC, IPF, HARVEY, CMPX, MG, TAMIE, TRIG, LIP #### [address] [phone] [employer] Machine Adjuster: Bunny Moy MD Lymphocytes (Bld) [#/Vol] 0.81 10*3/uL Low 1.10-3.[address] [facility] Comment on above: Performed By: #### P T, IOCAL, CBC, IPF, HARVEY, CMPX, MG, TAMIE, TRIG, LIP #### [address] [address] [employer] Adjuster: Bunny Moy MD Lymphocytes/100 WBC (Bld) 9 % Low 24-[address] [facility] Comment on above: Performed By: #### P T, IOCAL, CBC, IPF, HARVEY, CMPX, MG, TAMIE, TRIG, LIP #### [address] [address] [employer] Adjuster: Bunny Moy MD MCH (RBC) [Entitic mass] 31.3 pg Normal 25.2-33.[address] [facility] Comment on above: Performed By: #### P T, IOCAL, CBC, IPF, HARVEY, CMPX, MG, TAMIE, TRIG, LIP #### [address] [address] [employer]ing Machine Adjuster: Bunny Moy MD MCHC (RBC) [Mass/Vol] 32.9 g/dL Normal 28.4-34.8 [facility] Comment on above: Performed By: #### P T, IOCAL, CBC, IPF, HARVEY, CMPX, MG, TAMIE, TRIG, LIP #### [address] [address] [employer] Adjuster: Bunny Moy MD MCV (RBC) [Entitic vol] 95.3 fL Normal 82.6-102.9 [facility] Comment on above: Performed By: #### P T, IOCAL, CBC, IPF, HARVEY, CMPX, MG, TAMIE, TRIG, LIP #### [address] [address] [employer] Adjuster: Bunny Moy MD Monocytes (Bld) [#/Vol] 1.27 10*3/uL High 0.10-1.[address] [facility] Comment on above: Performed By: #### P T, IOCAL, CBC, IPF, HARVEY, CMPX, MG, TAMIE, TRIG, LIP #### [address] [address] [employer] Adjuster: Bunny Moy MD Monocytes/100 WBC (Bld) 13 % High 3-12 M [facility] Comment on above: Performed By: #### P T, IOCAL, CBC, IPF, HARVEY, CMPX, MG, TAMIE, TRIG, LIP #### [place] [address] [employer]ing Machine Adjuster: Bunny Moy MD Neutrophil (Seg) 72 % High 36-65 [facility] Comment on above: Performed By: #### P T, IOCAL, CBC, IPF, HARVEY, CMPX, MG, TAMIE, TRIG, LIP #### [place] [address] [employer]ing Machine Adjuster: Bunny Moy MD NRBC Automated 0.0 per 100 WBC Normal 0.[address] [facility] Comment on above: Performed By: #### P T, IOCAL, CBC, IPF, HARVEY, CMPX, MG, TAMIE, TRIG, LIP #### [place] [address] [employer]ing Machine Adjuster: Bunny Moy MD Platelets (Bld) [#/Vol] See Reflexed IPF Result Normal 138-[address] [facility] Comment on above: Performed By: #### P T, IOCAL, CBC, IPF, HARVEY, CMPX, MG, TAMIE, TRIG, LIP #### [address] [address] [employer] Adjuster: Bunny Moy MD RBC (Bld) [#/Vol] 4.50 10*6/uL Normal 4.21-5.[address] [facility] Comment on above: Performed By: #### P T, IOCAL, CBC, IPF, HARVEY, CMPX, MG, TAMIE, TRIG, LIP #### [address] [address] [employer]ing Machine Adjuster: Bunny Moy MD WBC (Bld) [#/Vol] 9.5 10*3/uL Normal 3.5-11.[address] [facility] Comment on above: Performed By: #### P T, IOCAL, CBC, IPF, HARVEY, CMPX, MG, TAMIE, TRIG, LIP #### [facility] [address] [place] [phone] [employer] Adjuster: Bunny Moy MD Auto Diff Performed NOT REPORTED Normal [facility] Comment on above: Performed By: #### P T, IOCAL, CBC, IPF, HARVEY, CMPX, MG, TAMIE, TRIG, LIP #### [place] [address] Casting Machine Adjuster: Bunny Moy MD Platelet mean volume (Bld) [Entitic vol] NOT REPORTED Normal 8.1-13.[address] [facility] Comment on above: Performed By: #### P T, IOCAL, CBC, IPF, HARVEY, CMPX, MG, TAMIE, TRIG, LIP #### [address] [address] [employer] Adjuster: Bunny Moy MD Platelets (Bld) [#/Vol] NOT REPORTED Normal [facility] Comment on above: Performed By: #### P T, IOCAL, CBC, IPF, HARVEY, CMPX, MG, TAMIE, TRIG, LIP #### [address] [address] [employer] Adjuster: Bunny Moy MD RBC morphology finding Nom (Bld) NOT REPORTED Normal [facility] Comment on above: Performed By: #### P T, IOCAL, CBC, IPF, HARVEY, CMPX, MG, TAMIE, TRIG, LIP #### [address] [phone] [employer] Adjuster: Bunny Moy MD WBC Morphology NOT REPORTED Normal [facility] Comment on above: Performed By: #### P T, IOCAL, CBC, IPF, HARVEY, CMPX, MG, TAMIE, TRIG, LIP #### [facility] [address] [place], [place] [phone] [employer]ing [employer] Adjuster: Bunny Moy MD Hepatic Function Panelon Albumin [Mass/Vol] 2.7 g/dL Low 3.5 - 5.2 g/dL [place] Albumin/Globulin [Mass ratio] 0.8 {ratio} [place] ALP [Catalytic activity/Vol] 69 U/L 40 - 129 U/L [place] ALT [Catalytic activity/Vol] 44 U/L High 5 - 41 U/L [place] AST [Catalytic activity/Vol] 24 U/L <40 [place] Bilirubin Ql (U) 1.05 mg/dL 0.3 - 1.2 mg/dL [place] Bilirubin, Indirect 0.64 mg/dL 0 - 1 mg/dL [place] Bilirubin.direct [Mass/Vol] 0.41 mg/dL High <0.31 [place] Globulin (S) [Mass/Vol] NOT REPORTED 1.5 - 3.8 g/dL [place] Protein [Mass/Vol] 6.2 g/dL Low 6.4 - 8.3 g/dL [place] Immature Platelet Fractionon 04-16-2019 Interpretation and review of laboratory results Abnormal [place] Platelet, Fluorescence [address] [place], [place] Comment on above: ORDERED BY LAB Platelet, Immature Fraction 2.9 % 1.1 - 10.3 % [place] Comment on above: ORDERED BY LAB Lipaseon 04-16-2019 Lipase [Catalytic activity/Vol] 140 U/L High 13 - 60 U/L [place] Liver Profileon 04-16-2019 Globulin (S) [Mass/Vol] NOT REPORTED Normal 1.5-3.[address] [facility] Comment on above: Performed By: #### P T, IOCAL, CBC, IPF, HARVEY, CMPX, MG, TAMIE, TRIG, LIP #### [facility] [employer] [address] [place] [phone] [employer] Adjuster: Bunny Moy MD MAGNESIUMon 04-16-2019 Magnesium [Mass/Vol] 2.2 mg/dL 1.6 - 2 .6 mg/dL [place] Magnesiumon 04-16-2019 Magnesium [Mass/Vol] 2.2 mg/dL Normal 1.6-2.6 [facility] Comment on above: Performed By: #### P T, IOCAL, CBC, IPF, HARVEY, CMPX, MG, TAMIE, TRIG, LIP #### [address] [id number] [employer] Adjuster: Bunny Moy MD Otheron 04-16-2019 Interpretation and review of laboratory results Abnormal [place], [place] PLT, Immature Fract.on 04-16 Platelet, Fluoresc. 125 k/uL Low 138-[address] [facility] Comment on above: Result Comment: ORDE RED BY LAB Performed By: #### P T, IOCAL, CBC, IPF, HARVEY, CMPX, MG, TAMIE, TRIG, LIP #### [address] [id number] [employer] Adjuster: Bunny Moy MD PLT, Immature Fract. 2.9 % Normal 1.1-10.3 [facility] Comment on above: Result Comment: ORDE RED BY LAB Performed By: #### P T, IOCAL, CBC, IPF, HARVEY, CMPX, MG, TAMIE, TRIG, LIP #### [facility] [employer] [address] [place] [id number] [employer] Adjuster: Bunny Moy MD POC Glucose Fingerstickon Glucose [Mass/Vol] 138 mg/dL High 75 - 110 mg/dL [place], [place] Interpretation and review of laboratory results Abnormal [place] Glucose [Mass/Vol] 109 mg/dL 75 - 110 mg/dL [place] Glucose [Mass/Vol] 167 mg/dL High 75 - 110 mg/dL [place] Interpretation and review of laboratory results Abnormal [place] Glucose [Mass/Vol] 102 mg/dL 75 - 110 mg/dL [place] RENAL FUNCTION PANELon 04-16 Albumin [Mass/Vol] 2.8 g/dL Low 3.5 - 5.2 g/dL [place] Anion gap [Moles/Vol] 13 mmol/L 9 - 17 mmol/L [place] Bun/Cre Ratio NOT [place] Calcium [Mass/Vol] 8.4 mg/dL Low 8.6 - 10. 4 mg/dL [place] Chloride [Moles/Vol] 101 mmol/L 98 - 10 7 mmol/L [place] CO2 [Moles/Vol] 22 mmol/L 20 - 31 mmol/L [place] Creatinine [Mass/Vol] 0.54 mg/dL Low 0.7 - 1.2 mg/dL [place] GFR >60 >60 mL/min [place] GFR Non- >60 >60 mL/min [place] GFR/1.73 sq M predicted among non-blacks MDRD (S/P/Bld) [Vol rate/Area] NOT REPORTED [place] GFR/1.73 sq M predicted among non-blacks MDRD (S/P/Bld) [Vol rate/Area] [place] Comment on above: Average GFR for 60-6 9 years old: 85 mL/min/1.73sq m Chronic Kidney Disease: <60 mL/min/1.73sq m Kidney failure: <15 mL/min/1.73sq m eGFR calculated using average adult body mass. Additional eGFR calculator available at: http://www.[employer]/multiple_crcl_2012.htm Glucose [Mass/Vol] 118 mg/dL High 70 - 99 mg/dL [place] Interpretation and review of laboratory results Abnormal [place] Phosphate [Mass/Vol] 3.0 mg/dL 2.5 - 4 .5 mg/dL [place] Potassium [Moles/Vol] 3.9 mmol/L 3.7 - 5.3 mmol/L [place] Sodium [Moles/Vol] 136 mmol/L 135 - 144 mmol/L [place] Urea nitrogen [Mass/Vol] 10 mg/dL 8 - 23 mg/dL [place] Renal Function Panelon 04-16 (cont.) Normal [facility] Comment on above: Result Comment: Aver age GFR for 60-69 years old: 85 mL/min/1.73sq m Chronic Kidney Disease: <60 mL/min/1.73sq m Kidney failure: <15 mL/min/1.73sq m eGFR calculated using average adult body mass. Additional eGFR calculator available at: http://www.[employer]/multiple_crcl_2011.htm Performed By: #### P T, IOCAL, CBC, IPF, HARVEY, CMPX, MG, TAMIE, TRIG, LIP #### [employer] [address] [place] [phone] [employer] Adjuster: Bunny Moy MD Albumin [Mass/Vol] 2.8 g/dL Low 3.5-5.[address] [facility] Comment on above: Performed By: #### P T, IOCAL, CBC, IPF, HARVEY, CMPX, MG, TAMIE, TRIG, LIP #### [facility] [employer] [address] [place] [address] [phone] [employer] Adjuster: Bunny Moy MD Anion gap [Moles/Vol] 13 mmol/L Normal 9-17 [facility] Comment on above: Performed By: #### P T, IOCAL, CBC, IPF, HARVEY, CMPX, MG, TAMIE, TRIG, LIP #### [facility] [employer] [address] [place] [address] [phone] [employer] Adjuster: Bunny oMy MD Calcium [Mass/Vol] 8.4 mg/dL Low 8.6-10.[address] [facility] Comment on above: Performed By: #### P T, IOCAL, CBC, IPF, HARVEY, CMPX, MG, TAMIE, TRIG, LIP #### [address] [address] [employer] Adjuster: Bunny Moy MD Chloride [Moles/Vol] 101 mmol/L Normal 98-107 [facility] Comment on above: Performed By: #### P T, IOCAL, CBC, IPF, HARVEY, CMPX, MG, TAMIE, TRIG, LIP #### [address] [address] [employer] Adjuster: Bunny Moy MD CO2 [Moles/Vol] 22 mmol/L Normal 20-[address] [facility] Comment on above: Performed By: #### P T, IOCAL, CBC, IPF, HARVEY, CMPX, MG, TAMIE, TRIG, LIP #### [place] [address] [employer] Adjuster: Bunny Moy MD Creatinine [Mass/Vol] 0.54 mg/dL Low 0.70-1.20 [facility] Comment on above: Performed By: #### P T, IOCAL, CBC, IPF, HARVEY, CMPX, MG, TAMIE, TRIG, LIP #### [facility] [employer] [address] [place] [address] [employer] Adjuster: Bunny Moy MD GFR, Amer >60 Normal >60 [facility] Comment on above: Performed By: #### P T, IOCAL, CBC, IPF, HARVEY, CMPX, MG, TAMIE, TRIG, LIP #### [facility] [employer] [address] [place] [address] [employer] Adjuster: Bunny Moy MD GFR,non Amer >60 Normal >60 [facility] Comment on above: Performed By: #### P T, IOCAL, CBC, IPF, HARVEY, CMPX, MG, TAMIE, TRIG, LIP #### [facility] [employer] [address] [place] [phone] [employer] Adjuster: Bunny Moy MD Glucose [Mass/Vol] 118 mg/dL High 70-[address] [facility] Comment on above: Performed By: #### P T, IOCAL, CBC, IPF, HARVEY, CMPX, MG, TAMIE, TRIG, LIP #### [address] [address] [employer] Adjuster: Bunny Moy MD Phosphorus, Inorg. 3.0 mg/dL Normal 2.5-4.[address] [facility] Comment on above: Performed By: #### P T, IOCAL, CBC, IPF, HARVEY, CMPX, MG, TAMIE, TRIG, LIP #### [address] [address] [employer] Adjuster: Bunny Moy MD Potassium [Moles/Vol] 3.9 mmol/L Normal 3.7-5.3 [facility] Comment on above: Performed By: #### P T, IOCAL, CBC, IPF, HARVEY, CMPX, MG, TAMIE, TRIG, LIP #### [address] [address] [employer] Adjuster: Bunny Moy MD Sodium [Moles/Vol] 136 mmol/L Normal 135-[address] [facility] Comment on above: Performed By: #### P T, IOCAL, CBC, IPF, HARVEY, CMPX, MG, TAMIE, TRIG, LIP #### [facility] [employer] [address] [place] [phone] [employer] Adjuster: Bunny Moy MD Urea nitrogen [Mass/Vol] 10 mg/dL Normal 8-[address] [facility] Comment on above: Performed By: #### P T, IOCAL, CBC, IPF, HARVEY, CMPX, MG, TAMIE, TRIG, LIP #### [address] [address] [employer] Adjuster: Bunny Moy MD BUN/CRE Ratio NOT REPORTED Normal - [facility] Comment on above: Performed By: #### P T, IOCAL, CBC, IPF, HARVEY, CMPX, MG, TAMIE, TRIG, LIP #### [facility] [address] [place] [address] [employer] Adjuster: Bunny Moy MD Staging: NOT REPORTED Normal [facility] Comment on above: Performed By: #### P T, IOCAL, CBC, IPF, HARVEY, CMPX, MG, TAMIE, TRIG, LIP #### [facility] [address] [place] [address] [employer] Adjuster: Bunny Moy MD Amylaseon 04-15-2019 Amylase [Catalytic activity/Vol] 143 U/L High 28-[address] [facility] Comment on above: Performed By: #### C BC, IPF, IOCAL, HARVEY, LIP, TAMIE, CPBILC ####[facility] [address] [place] [address] Lab Director: Bunny Moy MD Amylase [Catalytic activity/Vol] 143 U/L High 28 - 100 U/L [place] CBCon 04-15-2019 Erythrocyte distribution width (RBC) [Ratio] 12.4 % Normal 11.8-14.[address] [facility] Comment on above: Performed By: #### C BC, IPF, IOCAL, HARVEY, LIP, TAMIE, CPBILC ####[facility] [address] [place] [address] Lab Director: Bunny Moy MD Hematocrit (Bld) [Volume fraction] 41.9 % Normal 40.7-50.[address] [facility] Comment on above: Performed By: #### C BC, IPF, IOCAL, HARVEY, LIP, TAMIE, CPBILC ####[facility] [address] [place] [address] Lab Director: Bunny Moy MD Hemoglobin (Bld) [Mass/Vol] 13.7 g/dL Normal 13.0-17.[address] [facility] Comment on above: Performed By: #### C BC, IPF, IOCAL, HARVEY, LIP, TAMIE, CPBILC ####[place] [address] [place], [place] [phone] Director: Bunny Moy MD MCH (RBC) [Entitic mass] 31.2 pg Normal 25.2-33.[address] [facility] Comment on above: Performed By: #### C BC, IPF, IOCAL, HARVEY, LIP, TAMIE, CPBILC ####[address] [phone] Director: Bunny Moy MD MCHC (RBC) [Mass/Vol] 32.7 g/dL Normal 28.4-34.8 [facility] Comment on above: Performed By: #### C BC, IPF, IOCAL, HARVEY, LIP, TAMIE, CPBILC ####[address] [phone] Director: Bunny Moy MD MCV (RBC) [Entitic vol] 95.4 fL Normal 82.6-102.9 [facility] Comment on above: Performed By: #### C BC, IPF, IOCAL, HARVEY, LIP, TAMIE, CPBILC ####[address] [phone] Director: Bunny Moy MD NRBC Automated 0.0 per 100 WBC Normal 0.[address] [facility] Comment on above: Performed By: #### C BC, IPF, IOCAL, HARVEY, LIP, TAMIE, CPBILC ####[address] [place], [place] [phone] Director: Bunny Moy MD Platelets (Bld) [#/Vol] See Reflexed IPF Result Normal 138-[address] [facility] Comment on above: Performed By: #### C BC, IPF, IOCAL, HARVEY, LIP, TAMIE, CPBILC ####[facility] [address] [place] [address] Lab Director: Bunny Moy MD RBC (Bld) [#/Vol] 4.39 10*6/uL Normal 4.21-5.[address] [facility] Comment on above: Performed By: #### C BC, IPF, IOCAL, HARVEY, LIP, TAMIE, CPBILC ####[facility] [address] [place] [address] Lab Director: Bunny Moy MD WBC (Bld) [#/Vol] 10.0 10*3/uL Normal 3.5-11.[address] [facility] Comment on above: Performed By: #### C BC, IPF, IOCAL, HARVEY, LIP, TAMIE, CPBILC ####[facility] [address] [place] [address] Lab Director: Bunny Moy MD Platelet mean volume (Bld) [Entitic vol] NOT REPORTED Normal 8.1-13.[address] [facility] Comment on above: Performed By: #### C BC, IPF, IOCAL, HARVEY, LIP, TAMIE, CPBILC ####[facility] [address] [place] [address] Lab Director: Bunny Moy MD Erythrocyte distribution width (RBC) [Ratio] 12.4 % 11.8 - 14.4 % [place] Hematocrit (Bld) [Volume fraction] 41.9 % 40.7 - 50.3 % [place] Hemoglobin (Bld) [Mass/Vol] 13.7 g/dL 13 - 17 g/dL [place] MCH (RBC) [Entitic mass] 31.2 pg 25.2 - 33.5 pg [place] MCHC (RBC) [Mass/Vol] 32.7 g/dL 28.4 - 34.8 g/dL [place] MCV (RBC) [Entitic vol] 95.4 fL 82.6 - 102.9 fL [place] Platelet mean volume (Bld) [Entitic vol] NOT REPORTED 8.1 - 13.5 fL [place] Platelets (Bld) [#/Vol] See Reflexed IPF Result [place] RBC (Bld) [#/Vol] 4.39 10*6/uL 4.21 - 5.77 m/uL [place] WBC (Bld) [#/Vol] 10.0 10*3/uL [place] WBC (Bld) [#/Vol] 0.0 10*3/uL 0.0 per 100 WBC [place] Calcium, Ionicon 04-15-2019 Calcium [Mass/Vol] 1.03 mmol/L Low 1.13-1.[address] [facility] Comment on above: Performed By: #### C BC, IPF, IOCAL, HARVEY, LIP, TAMIE, CPBILC ####[address] [place] [address] Lab Director: Bunny Moy MD Calcium, Ionizedon 9 Calcium [Mass/Vol] 1.03 mmol/L Low 1.13 - 1.33 mmol/L [place] Interpretation and review of laboratory results Abnormal [place] Comp Metab w/Bili Pron 04-15 (cont.) Normal [facility] Comment on above: Result Comment: Aver age GFR for 60-69 years old: 85 mL/min/1.73sq m Chronic Kidney Disease: <60 mL/min/1.73sq m Kidney failure: <15 mL/min/1.73sq m eGFR calculated using average adult body mass. Additional eGFR calculator available at: http://www.[employer].com/multiple_crcl_2012.htm Performed By: #### P T, IOCAL, CBC, IPF, HARVEY, CMPX, MG, TAMIE, TRIG, LIP #### [employer] [address] [place] [address] [employer] Adjuster: Bunny Moy MD Albumin [Mass/Vol] 2.7 g/dL Low 3.5-5.[address] [facility] Comment on above: Performed By: #### P T, IOCAL, CBC, IPF, HARVEY, CMPX, MG, TAMIE, TRIG, LIP #### [place] [address] [employer] Adjuster: Bunny Moy MD Albumin/Globulin [Mass ratio] 0.9 {ratio} Low 1.0-2.[address] [facility] Comment on above: Performed By: #### P T, IOCAL, CBC, IPF, HARVEY, CMPX, MG, TAMIE, TRIG, LIP #### [place] [address] [employer] Adjuster: Bunny Moy MD Alkaline Phos 52 U/L Normal 40-[address] [facility] Comment on above: Performed By: #### P T, IOCAL, CBC, IPF, HARVEY, CMPX, MG, TAMIE, TRIG, LIP #### [place] [address] [employer] Adjuster: Bunny Moy MD ALT [Catalytic activity/Vol] 54 U/L High 5-[address] [facility] Comment on above: Performed By: #### P T, IOCAL, CBC, IPF, HARVEY, CMPX, MG, TAMIE, TRIG, LIP #### [place] [address] [employer] Adjuster: Bunny Moy MD Anion gap [Moles/Vol] 10 mmol/L Normal 9-17 [facility] Comment on above: Performed By: #### P T, IOCAL, CBC, IPF, HARVEY, CMPX, MG, TAMIE, TRIG, LIP #### [place] [address] [employer] Adjuster: Bunny Moy MD AST [Catalytic activity/Vol] 23 U/L Normal <[address] [facility] Comment on above: Performed By: #### P T, IOCAL, CBC, IPF, HARVEY, CMPX, MG, TAMIE, TRIG, LIP #### [address] [address] [employer] Adjuster: Bunny Moy MD Bilirubin Ql (U) 1.17 mg/dL Normal 0.3-1.2 [facility] Comment on above: Performed By: #### P T, IOCAL, CBC, IPF, HARVEY, CMPX, MG, TAMIE, TRIG, LIP #### [address] [address] [employer] Adjuster: Bunny Moy MD Bilirubin, Indirect 0.77 mg/dL Normal 0.00-1.[address] [facility] Comment on above: Performed By: #### P T, IOCAL, CBC, IPF, HARVEY, CMPX, MG, TAMIE, TRIG, LIP #### [address] [address] [employer] Adjuster: Bunny Moy MD Bilirubin.direct [Mass/Vol] 0.40 mg/dL High <0.[address] [facility] Comment on above: Performed By: #### P T, IOCAL, CBC, IPF, HARVEY, CMPX, MG, TAMIE, TRIG, LIP #### [address] [address] [employer] Adjuster: Bunny Moy MD Calcium [Mass/Vol] 8.0 mg/dL Low 8.6-10.[address] [facility] Comment on above: Performed By: #### P T, IOCAL, CBC, IPF, HARVEY, CMPX, MG, TAMIE, TRIG, LIP #### [address] [address] [employer] Adjuster: Bunny Moy MD Chloride [Moles/Vol] 99 mmol/L Normal 98-107 [facility] Comment on above: Performed By: #### P T, IOCAL, CBC, IPF, HARVEY, CMPX, MG, TAMIE, TRIG, LIP #### [facility] [employer] [address] [place] [address] [employer] Adjuster: Bunny Moy MD CO2 [Moles/Vol] 22 mmol/L Normal 20-[address] [facility] Comment on above: Performed By: #### P T, IOCAL, CBC, IPF, HARVEY, CMPX, MG, TAMIE, TRIG, LIP #### [address] [phone] [employer] Adjuster: Bunny Moy MD Creatinine [Mass/Vol] 0.48 mg/dL Low 0.70-1.20 [facility] Comment on above: Performed By: #### P T, IOCAL, CBC, IPF, HARVEY, CMPX, MG, TAMIE, TRIG, LIP #### [address] [address] [employer] Adjuster: Bunny oMy MD GFR, Amer >60 Normal >60 [facility] Comment on above: Performed By: #### P T, IOCAL, CBC, IPF, HARVEY, CMPX, MG, TAMIE, TRIG, LIP #### [address] [address] [employer] Adjuster: Bunny Moy MD GFR,non Amer >60 Normal >60 [facility] Comment on above: Performed By: #### P T, IOCAL, CBC, IPF, HARVEY, CMPX, MG, TAMIE, TRIG, LIP #### [address] [address] [employer] Adjuster: Bunny Moy MD Glucose [Mass/Vol] 128 mg/dL High 70-[address] [facility] Comment on above: Performed By: #### P T, IOCAL, CBC, IPF, HARVEY, CMPX, MG, TAMIE, TRIG, LIP #### [address] [address] [employer] Adjuster: Bunny Moy MD Potassium [Moles/Vol] 3.9 mmol/L Normal 3.7-5.3 [facility] Comment on above: Performed By: #### P T, IOCAL, CBC, IPF, HARVEY, CMPX, MG, TAMIE, TRIG, LIP #### [facility] [employer] [address] [place] [address] [employer] Adjuster: Bunny Moy MD Protein [Mass/Vol] 5.7 g/dL Low 6.4-8.[address] [facility] Comment on above: Performed By: #### P T, IOCAL, CBC, IPF, HARVEY, CMPX, MG, TAMIE, TRIG, LIP #### [facility] [employer] [address] [place] [address] [employer] Adjuster: Bunny Moy MD Sodium [Moles/Vol] 131 mmol/L Low 135-[address] [facility] Comment on above: Performed By: #### P T, IOCAL, CBC, IPF, HARVEY, CMPX, MG, TAMIE, TRIG, LIP #### [facility] [employer] [address] [place] [address] [employer] Adjuster: Bunny Moy MD Urea nitrogen [Mass/Vol] 9 mg/dL Normal 8-[address] [facility] Comment on above: Performed By: #### P T, IOCAL, CBC, IPF, HARVEY, CMPX, MG, TAMIE, TRIG, LIP #### [facility] [employer] [address] [place] [address] [phone] [employer] Adjuster: Bunny Moy MD Staging: NOT REPORTED Normal [facility] Comment on above: Performed By: #### P T, IOCAL, CBC, IPF, HARVEY, CMPX, MG, TAMIE, TRIG, LIP #### [address] [phone] [employer] Adjuster: Bunny Moy MD Comp Metabolic w Bili Profil anthony 04-15-2019 Albumin [Mass/Vol] 2.7 g/dL Low 3.5 - 5.2 g/dL [place] Albumin/Globulin [Mass ratio] 0.9 {ratio} Low [place] ALP [Catalytic activity/Vol] 52 U/L 40 - 129 U/L [place] ALT [Catalytic activity/Vol] 54 U/L High 5 - 41 U/L [place] Anion gap [Moles/Vol] 10 mmol/L 9 - 17 mmol/L [place] AST [Catalytic activity/Vol] 23 U/L <40 [place] Bilirubin Ql (U) 1.17 mg/dL 0.3 - 1.2 mg/dL [place] Bilirubin, Indirect 0.77 mg/dL 0 - 1 mg/dL [place] Bilirubin.direct [Mass/Vol] 0.40 mg/dL High <0.31 [place] Calcium [Mass/Vol] 8.0 mg/dL Low 8.6 - 10. 4 mg/dL [place] Chloride [Moles/Vol] 99 mmol/L 98 - 10 7 mmol/L [place] CO2 [Moles/Vol] 22 mmol/L 20 - 31 mmol/L [place] Creatinine [Mass/Vol] 0.48 mg/dL Low 0.7 - 1.2 mg/dL [place] GFR >60 >60 mL/min [place] GFR Non- >60 >60 mL/min [place] GFR/1.73 sq M predicted among non-blacks MDRD (S/P/Bld) [Vol rate/Area] NOT REPORTED [place] GFR/1.73 sq M predicted among non-blacks MDRD (S/P/Bld) [Vol rate/Area] [place] Comment on above: Average GFR for 60-6 9 years old: 85 mL/min/1.73sq m Chronic Kidney Disease: <60 mL/min/1.73sq m Kidney failure: <15 mL/min/1.73sq m eGFR calculated using average adult body mass. Additional eGFR calculator available at: http://www.[employer]/multiple_crcl_2012.htm Glucose [Mass/Vol] 128 mg/dL High 70 - 99 mg/dL [place] Interpretation and review of laboratory results Abnormal [place] Potassium [Moles/Vol] 3.9 mmol/L 3.7 - 5.3 mmol/L [place] Protein [Mass/Vol] 5.7 g/dL Low 6.4 - 8.3 g/dL [place] Sodium [Moles/Vol] 131 mmol/L Low 135 - 144 mmol/L [place] Urea nitrogen [Mass/Vol] 9 mg/dL 8 - 23 mg/dL [place] Immature Platelet Fractionon 04-15-2019 Interpretation and review of laboratory results Abnormal [place] Platelet, Fluorescence [address] [place], [place] Comment on above: ORDERED BY LAB Platelet, Immature Fraction 3.1 % 1.1 - 10.3 % [place] Comment on above: ORDERED BY LAB Lipaseon 04-15-2019 Lipase [Catalytic activity/Vol] 256 U/L High 13-[address] [facility] Comment on above: Performed By: #### C BC, IPF, IOCAL, HARVEY, LIP, TAMIE, CPBILC ####[facility] [address] [place] [phone] [facility] Director: Bunny Moy MD Lipase [Catalytic activity/Vol] 256 U/L High 13 - 60 U/L [place] MRI ABDOMEN W WO CONTRAST MR [...] MD 04/15/19 Edited Result - FINAL Normal [facility] Otheron 04-15-2019 Interpretation and review of laboratory results Abnormal [facility] [place] PLT, Immature Fract.on 04-15 Platelet, Fluoresc. 103 k/uL Low 138-[address] [facility] Comment on above: Result Comment: ORDE RED BY LAB Performed By: #### C BC, IPF, IOCAL, HARVEY, LIP, TAMIE, CPBILC ####[facility] [address] [place] [address] Lab Director: Bunny Moy MD PLT, Immature Fract. 3.1 % Normal 1.1-10.3 [facility] Comment on above: Result Comment: ORDE RED BY LAB Performed By: #### C BC, IPF, IOCAL, HARVEY, LIP, TAMIE, CPBILC ####[facility] [address] [place], [place] [phone] Lab Director: Bunny Moy MD POC Glucose Fingerstickon Glucose [Mass/Vol] 123 mg/dL High 75 - 110 mg/dL [place] Interpretation and review of laboratory results Abnormal [place] Glucose [Mass/Vol] 110 mg/dL 75 - 110 mg/dL [place] Glucose [Mass/Vol] 112 mg/dL High 75 - 110 mg/dL [place] Interpretation and review of laboratory results Abnormal [place] Glucose [Mass/Vol] 139 mg/dL High 75 - 110 mg/dL [place] Interpretation and review of laboratory results Abnormal [place] Phosphoruson 04-15-2019 Phosphate [Mass/Vol] 3.0 mg/dL 2.5 - 4 .5 mg/dL [place] Phosphorus, Inorg.on 019 Phosphorus, Inorg. 3.0 mg/dL Normal 2.5-4.[address] [facility] Comment on above: Performed By: #### C BC, IPF, IOCAL, HARVEY, LIP, TAMIE, CPBILC ####[facility] [address] [place], [place] [phone] Lab Director: Bunny Moy MD Amylaseon 04-14-2019 Amylase [Catalytic activity/Vol] 149 U/L High 28-[address] [facility] Comment on above: Performed By: #### C MPX, LIP #### [facility] [address] [place], [place] [phone] [employer] Adjuster: Bunny Moy MD Amylase [Catalytic activity/Vol] 149 U/L High 28 - 100 U/L [place] CBCon 04-14-2019 Erythrocyte distribution width (RBC) [Ratio] 12.7 % Normal 11.8-14.[address] [facility] Comment on above: Performed By: #### I OCAL, HARVEY, LIP, CBC, IPF ####[facility] [address] [place] [address] Lab Director: Bunny Moy MD Hematocrit (Bld) [Volume fraction] 41.0 % Normal 40.7-50.[address] [facility] Comment on above: Performed By: #### I OCAL, HARVEY, LIP, CBC, IPF ####[facility] [address] [place] [address] Lab Director: Bunny Moy MD Hemoglobin (Bld) [Mass/Vol] 13.1 g/dL Normal 13.0-17.[address] [facility] Comment on above: Performed By: #### I OCMONICA, HARVEY, LIP, CBC, IPF ####[address] [phone] Director: Bunny Moy MD MCH (RBC) [Entitic mass] 31.2 pg Normal 25.2-33.[address] [facility] Comment on above: Performed By: #### I OCMONICA, HARVEY, LIP, CBC, IPF ####[address] [address] Lab Director: Bunny Moy MD MCHC (RBC) [Mass/Vol] 32.0 g/dL Normal 28.4-34.8 [facility] Comment on above: Performed By: #### I OCALHARVEY, LIP, CBC, IPF ####[facility] [address] [place] [address] [phone] Director: Bunny Moy MD MCV (RBC) [Entitic vol] 97.6 fL Normal 82.6-102.9 [facility] Comment on above: Performed By: #### I OCAL, HARVEY, LIP, CBC, IPF ####[facility] [address] [place] [address] Lab Director: Bunny Moy MD NRBC Automated 0.0 per 100 WBC Normal 0.[address] [facility] Comment on above: Performed By: #### I OCAL, HARVEY, LIP, CBC, IPF ####[facility] [address] [place], [place] [phone] Director: Bunny Moy MD Platelets (Bld) [#/Vol] See Reflexed IPF Result Normal 138-[address] [facility] Comment on above: Performed By: #### I OCAL, HARVEY, LIP, CBC, IPF ####[facility] [address] [place], [place] [phone] Director: Bunny Moy MD RBC (Bld) [#/Vol] 4.20 10*6/uL Low 4.21-5.[address] [facility] Comment on above: Performed By: #### I OCAL, HARVEY, LIP, CBC, IPF ####[facility] [address] [place], [place] [phone] Director: Bunny Moy MD WBC (Bld) [#/Vol] 8.1 10*3/uL Normal 3.5-11.[address] [facility] Comment on above: Performed By: #### I OCAL, HARVEY, LIP, CBC, IPF ####[facility] [address] [place], [place] [phone] Director: Bunny Moy MD Platelet mean volume (Bld) [Entitic vol] NOT REPORTED Normal 8.1-13.[address] [facility] Comment on above: Performed By: #### I OCAL, HARVEY, LIP, CBC, IPF ####[facility] [address] [place], [place] [phone] Director: Bunny Moy MD Erythrocyte distribution width (RBC) [Ratio] 12.7 % 11.8 - 14.4 % [place], [place] Hematocrit (Bld) [Volume fraction] 41.0 % 40.7 - 50.3 % [place] Hemoglobin (Bld) [Mass/Vol] 13.1 g/dL 13 - 17 g/dL [place] Interpretation and review of laboratory results Abnormal [place] MCH (RBC) [Entitic mass] 31.2 pg 25.2 - 33.5 pg [place] MCHC (RBC) [Mass/Vol] 32.0 g/dL 28.4 - 34.8 g/dL [place] MCV (RBC) [Entitic vol] 97.6 fL 82.6 - 102.9 fL [place] Platelet mean volume (Bld) [Entitic vol] NOT REPORTED 8.1 - 13.5 fL [place] Platelets (Bld) [#/Vol] See Reflexed IPF Result [place] RBC (Bld) [#/Vol] 4.20 10*6/uL Low 4.21 - 5.77 m/uL [place] WBC (Bld) [#/Vol] 8.1 10*3/uL [place] WBC (Bld) [#/Vol] 0.0 10*3/uL 0.0 per 100 WBC [place] CT ABDOMEN PELVIS W IV CONTR [...] Carlton Garcia MD 04/14/19 Final result Normal [facility] CT ABDOMEN PELVIS W IV CONTR AST Additional Contrast? Oralon 04-14-2019 Zev, Mhpn Incoming R adiant Results From [employer] - 04/14/2019 8:11 PM EDT EXAMINATION: CT [...] Interval ERCP with expected pneumobilia. Fatty liver. [place], [place] Acute interstitial edematous pancreatitis without evidence of complication. Interval ERCP with expected pneumobilia. Fatty liver. [place] EXAMINATION: CT OF T HE ABDOMEN [...] aorta. Bones/Soft Tissues: No acute osseous abnormality. [place] Calcium, Ionicon 04-14-2019 Calcium [Mass/Vol] 1.02 mmol/L Low 1.13-1.[address] [facility] Comment on above: Performed By: #### C MPX, LIP #### [facility] [employer] [address] [place] [address] Casting Machine Adjuster: Bunny Moy MD Calcium, Ionizedon 9 Calcium [Mass/Vol] 1.02 mmol/L Low 1.13 - 1.33 mmol/L [place] Interpretation and review of laboratory results Abnormal [place] HEMOGLOBIN A1Con 04-14-2019 Glucose [Mass/Vol] 143 mg/dL [place] Comment on above: The ADA and AACC rec ommend providing the estimated average glucose result to permit better patient understanding of their HBA1c result. HbA1c (Bld) [Mass fraction] 6.6 % High 4 - 6 % [place] Interpretation and review of laboratory results Abnormal [place] Hemoglobin A1Con 04-14-2019 HbA1c (Bld) [Mass fraction] 143 mg/dL Normal [facility] Comment on above: Result Comment: The ADA and AACC recommend providing the estimated average glucose result to permit better patient understanding of their HBA1c result. Performed By: #### G LYHGB ####[facility] [address] [place] [address] Lab Director: Bunny Moy MD HbA1c (Bld) [Mass fraction] 6.6 % High 4.0-6.[address] [facility] Comment on above: Performed By: #### G LYHGB ####[facility] [address] [place] [address] Lab Director: Bunny Moy MD Immature Platelet Fractionon 04-14-2019 Interpretation and review of laboratory results Abnormal [place] Platelet, Fluorescence [address] [place], [place] Comment on above: ORDERED BY LAB Platelet, Immature Fraction 4.7 % 1.1 - 10.3 % [place] Comment on above: ORDERED BY LAB Lipaseon 04-14-2019 Lipase [Catalytic activity/Vol] 251 U/L High 13-[address] [facility] Comment on above: Performed By: #### C MPX, LIP #### [address] [place] [address] Casting Machine Adjuster: Bunny Moy MD Lipase [Catalytic activity/Vol] 251 U/L High 13 - 60 U/L [place] Otheron 04-14-2019 Interpretation and review of laboratory results Abnormal [place] PLT, Immature Fract.on 04-14 Platelet, Fluoresc. 106 k/uL Low 138-[address] [facility] Comment on above: Result Comment: ORDE RED BY LAB Performed By: #### I OCAL, HARVEY, LIP, CBC, IPF ####[facility] [address] [place] [address] Lab Director: Bunny Moy MD PLT, Immature Fract. 4.7 % Normal 1.1-10.3 [facility] Comment on above: Result Comment: ORDE RED BY LAB Performed By: #### I OCAL, HARVEY, LIP, CBC, IPF ####[facility] [address] [place], [place] [id number] Lab Director: Bunny Moy MD POC Glucose Fingerstickon Glucose [Mass/Vol] 126 mg/dL High 75 - 110 mg/dL [place] Interpretation and review of laboratory results Abnormal [place] Glucose [Mass/Vol] 108 mg/dL 75 - 110 mg/dL [place] Glucose [Mass/Vol] 122 mg/dL High 75 - 110 mg/dL [place] Interpretation and review of laboratory results Abnormal [place] Calcium, Ionicon 04-13-2019 Calcium [Mass/Vol] 1.00 mmol/L Low 1.13-1.[address] [facility] Comment on above: Performed By: #### C MPX, LIP #### [facility] [employer] [facility] [place], [place] [phone] Casting Machine Adjuster: Bunny Moy MD Calcium, Ionizedon 9 Calcium [Mass/Vol] 1 mmol/L Low 1.13 - 1.33 mmol/L [place] Interpretation and review of laboratory results Abnormal [place] Hepatic Function Panelon Albumin [Mass/Vol] 2.9 g/dL Low 3.5 - 5.2 g/dL [place] Albumin/Globulin [Mass ratio] 1.0 {ratio} [place] ALP [Catalytic activity/Vol] 41 U/L 40 - 129 U/L [place] ALT [Catalytic activity/Vol] 103 U/L High 5 - 41 U/L [place] AST [Catalytic activity/Vol] 36 U/L <40 [place] Bilirubin Ql (U) 0.87 mg/dL 0.3 - 1.2 mg/dL [place] Bilirubin, Indirect 0.54 mg/dL 0 - 1 mg/dL [place] Bilirubin.direct [Mass/Vol] 0.33 mg/dL High <0.31 [place] Globulin (S) [Mass/Vol] NOT REPORTED 1.5 - 3.8 g/dL [place] Interpretation and review of laboratory results Abnormal [place] Protein [Mass/Vol] 5.7 g/dL Low 6.4 - 8.3 g/dL [place] Lipaseon 04-13-2019 Lipase [Catalytic activity/Vol] 288 U/L High 13-[address] [facility] Comment on above: Performed By: #### C MPX, LIP #### [facility] [employer] [address] [place] [phone] Casting Machine Adjuster: Bunny Moy MD Interpretation and review of laboratory results Abnormal [place] Lipase [Catalytic activity/Vol] 288 U/L High 13 - 60 U/L [place] Liver Profileon 04-13-2019 Albumin [Mass/Vol] 2.9 g/dL Low 3.5-5.[address] [facility] Comment on above: Performed By: #### C MPX, LIP #### [facility] [employer] [address] [place] [phone] Casting Machine Adjuster: Bunny Moy MD Albumin/Globulin [Mass ratio] 1.0 {ratio} Normal 1.0-2.[address] [facility] Comment on above: Performed By: #### C MPX, LIP #### [facility] [employer] [address] [place] [phone] Casting Machine Adjuster: Bunny Moy MD Alkaline Phos 41 U/L Normal 40-[address] [facility] Comment on above: Performed By: #### C MPX, LIP #### [facility] [employer] [facility] [place] [address] Casting Machine Adjuster: Bunny Moy MD ALT [Catalytic activity/Vol] 103 U/L High 5-[address] [facility] Comment on above: Performed By: #### C MPX, LIP #### [facility] [address] [place] [phone] Casting Machine Adjuster: Bunny Moy MD AST [Catalytic activity/Vol] 36 U/L Normal <[address] [facility] Comment on above: Performed By: #### C MPX, LIP #### [address] [address] Casting Machine Adjuster: Bunny Moy MD Bilirubin Ql (U) 0.87 mg/dL Normal 0.3-1.2 [facility] Comment on above: Performed By: #### C MPX, LIP #### [facility] [employer] [address] [place] [address] Casting Machine Adjuster: Bunny Moy MD Bilirubin, Indirect 0.54 mg/dL Normal 0.00-1.[address] [facility] Comment on above: Performed By: #### C MPX, LIP #### [facility] [employer] [address] [place] [phone] Casting Machine Adjuster: Bunny Moy MD Bilirubin.direct [Mass/Vol] 0.33 mg/dL High <0.[address] [facility] Comment on above: Performed By: #### C MPX, LIP #### [address] [address] Casting Machine Adjuster: Bunny Moy MD Protein [Mass/Vol] 5.7 g/dL Low 6.4-8.[address] [facility] Comment on above: Performed By: #### C MPX, LIP #### [address] [address] Casting Machine Adjuster: Bunny oMy MD Globulin (S) [Mass/Vol] NOT REPORTED Normal 1.5-3.[address] [facility] Comment on above: Performed By: #### C MPX, LIP #### [address] [address] Casting Machine Adjuster: Bunny Moy MD POC Glucose Fingerstickon Glucose [Mass/Vol] 154 mg/dL High 75 - 110 mg/dL [place] Interpretation and review of laboratory results Abnormal [place] Glucose [Mass/Vol] 132 mg/dL High 75 - 110 mg/dL [place] Interpretation and review of laboratory results Abnormal [place] Glucose [Mass/Vol] 174 mg/dL High 75 - 110 mg/dL [place] Interpretation and review of laboratory results Abnormal [place] Glucose [Mass/Vol] 148 mg/dL High 75 - 110 mg/dL [place] Interpretation and review of laboratory results Abnormal [place] AMYLASEon 04-12-2019 Amylase [Catalytic activity/Vol] 436 U/L High 28 - 100 U/L [place] Interpretation and review of laboratory results Abnormal [place] Amylaseon 04-12-2019 Amylase [Catalytic activity/Vol] 436 U/L High 28-[address] [facility] Comment on above: Performed By: #### P T, IOCAL, CBC, IPF, HARVEY, CMPX, MG, TAMIE, TRIG, LIP #### [facility] [employer] [address] [place] [address] [phone] [employer]ing Machine Adjuster: Bunny Moy MD CBCon 04-12-2019 Erythrocyte distribution width (RBC) [Ratio] 12.4 % Normal 11.8-14.[address] [facility] Comment on above: Performed By: #### P T, IOCAL, CBC, IPF, HARVEY, CMPX, MG, TAMIE, TRIG, LIP #### [address] [phone] Casting Machine Adjuster: Bunny Moy MD Hematocrit (Bld) [Volume fraction] 48.2 % Normal 40.7-50.[address] [facility] Comment on above: Performed By: #### P T, IOCAL, CBC, IPF, HARVEY, CMPX, MG, TAMIE, TRIG, LIP #### [address] [phone] Casting Machine Adjuster: Bunny Moy MD Hemoglobin (Bld) [Mass/Vol] 16.1 g/dL Normal 13.0-17.[address] [facility] Comment on above: Performed By: #### P T, IOCAL, CBC, IPF, HARVEY, CMPX, MG, TAMIE, TRIG, LIP #### [address] [address] Casting Machine Adjuster: Bunny Moy MD MCH (RBC) [Entitic mass] 31.6 pg Normal 25.2-33.[address] [facility] Comment on above: Performed By: #### P T, IOCAL, CBC, IPF, HARVEY, CMPX, MG, TAMIE, TRIG, LIP #### [place] [address] Casting Machine Adjuster: Bunny Moy MD MCHC (RBC) [Mass/Vol] 33.4 g/dL Normal 28.4-34.8 [facility] Comment on above: Performed By: #### P T, IOCAL, CBC, IPF, HARVEY, CMPX, MG, TAMIE, TRIG, LIP #### [place] [address] Casting Machine Adjuster: Bunny Moy MD MCV (RBC) [Entitic vol] 94.5 fL Normal 82.6-102.9 [facility] Comment on above: Performed By: #### P T, IOCAL, CBC, IPF, HARVEY, CMPX, MG, TAMIE, TRIG, LIP #### [place] [address] Casting Machine Adjuster: Bunny Moy MD NRBC Automated 0.0 per 100 WBC Normal 0.[address] [facility] Comment on above: Performed By: #### P T, IOCAL, CBC, IPF, HARVEY, CMPX, MG, TAMIE, TRIG, LIP #### [place] [address] Casting Machine Adjuster: Bunny Moy MD Platelets (Bld) [#/Vol] See Reflexed IPF Result Normal 138-[address] [facility] Comment on above: Performed By: #### P T, IOCAL, CBC, IPF, HARVEY, CMPX, MG, TAMIE, TRIG, LIP #### [address] [phone] Casting Machine Adjuster: Bunny Moy MD RBC (Bld) [#/Vol] 5.10 10*6/uL Normal 4.21-5.[address] [facility] Comment on above: Performed By: #### P T, IOCAL, CBC, IPF, HARVEY, CMPX, MG, TAMIE, TRIG, LIP #### [address] [phone] Casting Machine Adjuster: Bunny Moy MD WBC (Bld) [#/Vol] 9.1 10*3/uL Normal 3.5-11.[address] [facility] Comment on above: Performed By: #### P T, IOCAL, CBC, IPF, HARVEY, CMPX, MG, TAMIE, TRIG, LIP #### [address] [phone] Casting Machine Adjuster: Bunny Moy MD Platelet mean volume (Bld) [Entitic vol] NOT REPORTED Normal 8.1-13.[address] [facility] Comment on above: Performed By: #### P T, IOCAL, CBC, IPF, HARVEY, CMPX, MG, TAMIE, TRIG, LIP #### [address] [phone] Casting Machine Adjuster: Bunny Moy MD Erythrocyte distribution width (RBC) [Ratio] 12.4 % 11.8 - 14.4 % [place] Hematocrit (Bld) [Volume fraction] 48.2 % 40.7 - 50.3 % [place] Hemoglobin (Bld) [Mass/Vol] 16.1 g/dL 13 - 17 g/dL [place] MCH (RBC) [Entitic mass] 31.6 pg 25.2 - 33.5 pg [place] MCHC (RBC) [Mass/Vol] 33.4 g/dL 28.4 - 34.8 g/dL [place] MCV (RBC) [Entitic vol] 94.5 fL 82.6 - 102.9 fL [place] Platelet mean volume (Bld) [Entitic vol] NOT REPORTED 8.1 - 13.5 fL [place] Platelets (Bld) [#/Vol] See Reflexed IPF Result [place] RBC (Bld) [#/Vol] 5.10 10*6/uL 4.21 - 5.77 m/uL [place] WBC (Bld) [#/Vol] 9.1 10*3/uL [place] WBC (Bld) [#/Vol] 0.0 10*3/uL 0.0 per 100 WBC [place] Calcium, Ionicon 04-12-2019 Calcium [Mass/Vol] 1.01 mmol/L Low 1.13-1.[address] [facility] Comment on above: Performed By: #### P T, IOCAL, CBC, IPF, HARVEY, CMPX, MG, TAMIE, TRIG, LIP #### [facility] [employer] [address] [place] [phone] Casting Machine Adjuster: Bunny Moy MD Calcium, Ionizedon 9 Calcium [Mass/Vol] 1.01 mmol/L Low 1.13 - 1.33 mmol/L [place] Interpretation and review of laboratory results Abnormal [place] Comp Metabolic Pr/rfx MGon 1 Albumin [Mass/Vol] 3.2 g/dL Low 3.5-5.[address] [facility] Comment on above: Performed By: #### P T, IOCAL, CBC, IPF, HARVEY, CMPX, MG, TAMIE, TRIG, LIP #### [facility] [employer] [address] [place] [phone] Casting Machine Adjuster: Bunny Moy MD Albumin/Globulin [Mass ratio] 1.1 {ratio} Normal 1.0-2.[address] [facility] Comment on above: Performed By: #### P T, IOCAL, CBC, IPF, HARVEY, CMPX, MG, TAMIE, TRIG, LIP #### [address] [address] Casting Machine Adjuster: Bunny Moy MD Alkaline Phos 49 U/L Normal 40-[address] [facility] Comment on above: Result Comment: SPEC IMEN SLIGHTLY HEMOLYZED, RESULTS MAY BE ADVERSELY AFFECTED. Performed By: #### P T, IOCAL, CBC, IPF, HARVEY, CMPX, MG, TAMIE, TRIG, LIP #### [address] [address] Casting Machine Adjuster: Bunny Moy MD ALT [Catalytic activity/Vol] 192 U/L High 5-[address] [facility] Comment on above: Result Comment: SPEC IMEN SLIGHTLY HEMOLYZED, RESULTS MAY BE ADVERSELY AFFECTED. Performed By: #### P T, IOCAL, CBC, IPF, HARVEY, CMPX, MG, TAMIE, TRIG, LIP #### [address] [phone] Casting Machine Adjuster: Bunny Moy MD Anion gap [Moles/Vol] 14 mmol/L Normal 9-17 [facility] Comment on above: Performed By: #### P T, IOCAL, CBC, IPF, HARVEY, CMPX, MG, TAMIE, TRIG, LIP #### [address] [address] Casting Machine Adjuster: Bunny Moy MD AST [Catalytic activity/Vol] 113 U/L High <[address] [facility] Comment on above: Result Comment: SPEC IMEN SLIGHTLY HEMOLYZED, RESULTS MAY BE ADVERSELY AFFECTED. Performed By: #### P T, IOCAL, CBC, IPF, HARVEY, CMPX, MG, TAMIE, TRIG, LIP #### [address] [address] Casting Machine Adjuster: Bunny Moy MD Bilirubin Ql (U) 1.33 mg/dL High 0.3-1.2 [facility] Comment on above: Performed By: #### P T, IOCAL, CBC, IPF, HARVEY, CMPX, MG, TAMIE, TRIG, LIP #### [address] [address] Casting Machine Adjuster: Bunny Moy MD Calcium [Mass/Vol] 7.6 mg/dL Low 8.6-10.[address] [facility] Comment on above: Performed By: #### P T, IOCAL, CBC, IPF, HARVEY, CMPX, MG, TAMIE, TRIG, LIP #### [place] [address] Casting Machine Adjuster: Bunny Moy MD Chloride [Moles/Vol] 103 mmol/L Normal 98-107 [facility] Comment on above: Performed By: #### P T, IOCAL, CBC, IPF, HARVEY, CMPX, MG, TAMIE, TRIG, LIP #### [place] [address] Casting Machine Adjuster: Bunny Moy MD CO2 [Moles/Vol] 21 mmol/L Normal 20-[address] [facility] Comment on above: Performed By: #### P T, IOCAL, CBC, IPF, HARVEY, CMPX, MG, TAMIE, TRIG, LIP #### [place] [address] Casting Machine Adjuster: Bunny Moy MD Creatinine [Mass/Vol] 0.56 mg/dL Low 0.70-1.20 [facility] Comment on above: Performed By: #### P T, IOCAL, CBC, IPF, HARVEY, CMPX, MG, TAMIE, TRIG, LIP #### [place] [address] Casting Machine Adjuster: Bunny Moy MD GFR, Amer >60 Normal >60 [facility] Comment on above: Performed By: #### P T, IOCAL, CBC, IPF, HARVEY, CMPX, MG, TAMIE, TRIG, LIP #### [place] [address] Casting Machine Adjuster: Bunny Moy MD GFR,non Amer >60 Normal >60 [facility] Comment on above: Performed By: #### P T, IOCAL, CBC, IPF, HARVEY, CMPX, MG, TAMIE, TRIG, LIP #### [address] [phone] Casting Machine Adjuster: Bunny Moy MD Glucose [Mass/Vol] 159 mg/dL High 70-[address] [facility] Comment on above: Performed By: #### P T, IOCAL, CBC, IPF, HARVEY, CMPX, MG, TAMIE, TRIG, LIP #### [address] [address] Casting Machine Adjuster: Bunny Moy MD Potassium [Moles/Vol] 4.2 mmol/L Normal 3.7-5.3 [facility] Comment on above: Result Comment: SPEC IMEN SLIGHTLY HEMOLYZED, RESULTS MAY BE ADVERSELY AFFECTED. Performed By: #### P T, IOCAL, CBC, IPF, HARVEY, CMPX, MG, TAMIE, TRIG, LIP #### [address] [address] Casting Machine Adjuster: Bunny Moy MD Protein [Mass/Vol] 6.0 g/dL Low 6.4-8.[address] [facility] Comment on above: Performed By: #### P T, IOCAL, CBC, IPF, HARVEY, CMPX, MG, TAMIE, TRIG, LIP #### [facility] [employer] [address] [place] [phone] Casting Machine Adjuster: Bunny Moy MD Sodium [Moles/Vol] 138 mmol/L Normal 135-[address] [facility] Comment on above: Performed By: #### P T, IOCAL, CBC, IPF, HARVEY, CMPX, MG, TAMIE, TRIG, LIP #### [address] [address] Casting Machine Adjuster: Bunny Moy MD Urea nitrogen [Mass/Vol] 15 mg/dL Normal 8-[address] [facility] Comment on above: Performed By: #### P T, IOCAL, CBC, IPF, HARVEY, CMPX, MG, TAMIE, TRIG, LIP #### [address] [place] [address] Casting Machine Adjuster: Bunny Moy MD (cont.) Normal [facility] Comment on above: Result Comment: Aver age GFR for 60-69 years old: 85 mL/min/1.73sq m Chronic Kidney Disease: <60 mL/min/1.73sq m Kidney failure: <15 mL/min/1.73sq m eGFR calculated using average adult body mass. Additional eGFR calculator available at: http://www.[employer]/multiple_crcl_2012.htm Performed By: #### P T, IOCAL, CBC, IPF, HARVEY, CMPX, MG, TAMIE, TRIG, LIP #### [address] [address] Casting Machine Adjuster: Bunny Moy MD BUN/CRE Ratio NOT REPORTED Normal - [facility] Comment on above: Performed By: #### P T, IOCAL, CBC, IPF, HARVEY, CMPX, MG, TAMIE, TRIG, LIP #### [address] [place] [address] Casting Machine Adjuster: Bunny Moy MD Staging: NOT REPORTED Normal [facility] Comment on above: Performed By: #### P T, IOCAL, CBC, IPF, HARVEY, CMPX, MG, TAMIE, TRIG, LIP #### [address] [place] [address] Casting Machine Adjuster: Bunny Moy MD Comprehensive Metabolic Pane l w/ Reflex to MGon 04-12-2019 Albumin [Mass/Vol] 3.2 g/dL Low 3.5 - 5.2 g/dL [place] Albumin/Globulin [Mass ratio] 1.1 {ratio} [place] ALP [Catalytic activity/Vol] 49 U/L 40 - 129 U/L [place] Comment on above: SPECIMEN SLIGHTLY HE MOLYZED, RESULTS MAY BE ADVERSELY AFFECTED. ALT [Catalytic activity/Vol] 192 U/L High 5 - 41 U/L [place] Comment on above: SPECIMEN SLIGHTLY HE MOLYZED, RESULTS MAY BE ADVERSELY AFFECTED. Anion gap [Moles/Vol] 14 mmol/L 9 - 17 mmol/L [place] AST [Catalytic activity/Vol] 113 U/L High <40 [place] Comment on above: SPECIMEN SLIGHTLY HE MOLYZED, RESULTS MAY BE ADVERSELY AFFECTED. Bilirubin Ql (U) 1.33 mg/dL High 0.3 - 1.2 mg/dL [place] Bun/Cre Ratio NOT REPORTED [place] Calcium [Mass/Vol] 7.6 mg/dL Low 8.6 - 10. 4 mg/dL [place] Chloride [Moles/Vol] 103 mmol/L 98 - 10 7 mmol/L [place] CO2 [Moles/Vol] 21 mmol/L 20 - 31 mmol/L [place] Creatinine [Mass/Vol] 0.56 mg/dL Low 0.7 - 1.2 mg/dL [place] GFR >60 >60 mL/min [place] GFR Non- >60 >60 mL/min [place] GFR/1.73 sq M predicted among non-blacks MDRD (S/P/Bld) [Vol rate/Area] NOT REPORTED [place] GFR/1.73 sq M predicted among non-blacks MDRD (S/P/Bld) [Vol rate/Area] [place] Comment on above: Average GFR for 60-6 9 years old: 85 mL/min/1.73sq m Chronic Kidney Disease: <60 mL/min/1.73sq m Kidney failure: <15 mL/min/1.73sq m eGFR calculated using average adult body mass. Additional eGFR calculator available at: http://www.[employer]/multiple_crcl_2011.htm Glucose [Mass/Vol] 159 mg/dL High 70 - 99 mg/dL [place] Interpretation and review of laboratory results Abnormal [place] Potassium [Moles/Vol] 4.2 mmol/L 3.7 - 5.3 mmol/L [place] Comment on above: SPECIMEN SLIGHTLY HE MOLYZED, RESULTS MAY BE ADVERSELY AFFECTED. Protein [Mass/Vol] 6.0 g/dL Low 6.4 - 8.3 g/dL [place] Sodium [Moles/Vol] 138 mmol/L 135 - 144 mmol/L [place] Urea nitrogen [Mass/Vol] 15 mg/dL 8 - 23 mg/dL [place] ERCP BILIARY AND PANCREAT IC [...] Lyn Colby MD 04/12/19 Final result Normal [facility] [place] ERCP BILIARY AND PANCREAT IC S&Ion 04-12-2019 ERCP images demonstr ate filling defects distal common bowel duct on the initial images, not replicated on later images suggesting stone extraction. Bile ducts are smoothly demarcated without nodularity. Please refer to the procedure report for further details. [place] EXAMINATION: 4 SPOT IMAGES FROM AN [...] hepatic and right and left hepatic ducts. [place] Zev, Mhpn Incoming R adiant Results From [employer] - 04/12/2019 2:47 PM EDT EXAMINATION: 4 [...] to the procedure report for further details. [place] Immature Platelet Fractionon 04-12-2019 Interpretation and review of laboratory results Abnormal [place] Platelet, Fluorescence [address] [place], [place] Comment on above: ORDERED BY LAB Platelet, Immature Fraction 1.9 % 1.1 - 10.3 % [place] Comment on above: ORDERED BY LAB LIPASEon 04-12-2019 Interpretation and review of laboratory results Abnormal [place] Lipase [Catalytic activity/Vol] 875 U/L High 13 - 60 U/L [place] Lipaseon 04-12-2019 Lipase [Catalytic activity/Vol] 875 U/L High 13-[address] [facility] Comment on above: Performed By: #### C MPX, LIP #### [address] [phone] Casting Machine Adjuster: Bunny Moy MD Magnesiumon 04-12-2019 Magnesium [Mass/Vol] 1.7 mg/dL Normal 1.6-2.6 [facility] Comment on above: Performed By: #### P T, IOCAL, CBC, IPF, HARVEY, CMPX, MG, TAMIE, TRIG, LIP #### [address] [phone] Casting Machine Adjuster: Bunny Moy MD Magnesium [Mass/Vol] 1.7 mg/dL 1.6 - 2 .6 mg/dL [place] PLT, Immature Fract.on 04-12 Platelet, Fluoresc. 126 k/uL Low 138-[address] [facility] Comment on above: Result Comment: ORDE RED BY LAB Performed By: #### P T, IOCAL, CBC, IPF, HARVEY, CMPX, MG, TAMIE, TRIG, LIP #### [address] [phone] Casting Machine Adjuster: Bunny Moy MD PLT, Immature Fract. 1.9 % Normal 1.1-10.3 [facility] Comment on above: Result Comment: ORDE RED BY LAB Performed By: #### P T, IOCAL, CBC, IPF, HARVEY, CMPX, MG, TAMIE, TRIG, LIP #### [address] [phone] Casting Machine Adjuster: Bunny Moy MD POC Glucose Fingerstickon Glucose [Mass/Vol] 229 mg/dL High 75 - 110 mg/dL [place] Interpretation and review of laboratory results Abnormal [place] Glucose [Mass/Vol] 262 mg/dL High 75 - 110 mg/dL [place] Interpretation and review of laboratory results Abnormal [place] Glucose [Mass/Vol] 183 mg/dL High 75 - 110 mg/dL [place] Interpretation and review of laboratory results Abnormal [place] Glucose [Mass/Vol] 137 mg/dL High 75 - 110 mg/dL [place] Interpretation and review of laboratory results Abnormal [place] Glucose [Mass/Vol] 168 mg/dL High 75 - 110 mg/dL [place] Interpretation and review of laboratory results Abnormal [place] PTon 04-12-2019 INR Coag (PPP) [Relative time] 1.2 {INR} Normal [facility] Comment on above: Result Comment: Therapeutic Range: Moderate Anticoagulant Intensity: INR = 2.0-3.0 High Anticoagulant Intensity: INR = 2.5-3.5 Performed By: #### P T, IOCAL, CBC, IPF, HARVEY, CMPX, MG, TAMIE, TRIG, LIP #### [facility] [employer] [address] [place] [phone] Casting Machine Adjuster: Bunny Moy MD PT Coag (PPP) [Time] 12.9 s High 9.0-12.0 [facility] Comment on above: Performed By: #### P T, IOCAL, CBC, IPF, HARVEY, CMPX, MG, TAMIE, TRIG, LIP #### [facility] [employer] [address] [place] [phone] Casting Machine Adjuster: Bunny Moy MD Phosphoruson 04-12-2019 Phosphate [Mass/Vol] 2.9 mg/dL 2.5 - 4 .5 mg/dL [place] Phosphorus, Inorg.on 019 Phosphorus, Inorg. 2.9 mg/dL Normal 2.5-4.[address] [facility] Comment on above: Performed By: #### C MPX, LIP #### [facility] [place], [place] [phone] Casting Machine Adjuster: Bunny Moy MD Protime-INRon 04-12-2019 INR Coag (PPP) [Relative time] 1.2 {INR} [place] Comment on above: Therapeutic Range: Moderate Anticoagulant Intensity: INR = 2.0-3.0 High Anticoagulant Intensity: INR = 2.5-3.5 Interpretation and review of laboratory results Abnormal [place] PT Coag (PPP) [Time] 12.9 s High [place] Triglycerideon 04-12-2019 Triglyceride [Mass/Vol] 95 mg/dL <150 M [place], [place] Comment on above: Triglyceride Guidelines: <150 Desirable 150-199 Borderline 200-499 High >499 Very high Based on AHA Guidelines for fasting triglyceride, April 2012. Triglycerideson 04-12-2019 Triglyceride [Mass/Vol] 95 mg/dL Normal <150 M [facility] Comment on above: Result Comment: Triglyceride Guidelines: <150 Desirable 150-199 Borderline 200-499 High >499 Very high Based on AHA Guidelines for fasting triglyceride, April 2012. Performed By: #### C MPX, LIP #### [facility] [address] [place] [address] [phone] [employer] Machine Adjuster: Bunny Moy MD Comp Metabolic Pr/rfx MGon 1 (cont.) Normal [facility] Comment on above: Result Comment: Aver age GFR for 60-69 years old: 85 mL/min/1.73sq m Chronic Kidney Disease: <60 mL/min/1.73sq m Kidney failure: <15 mL/min/1.73sq m eGFR calculated using average adult body mass. Additional eGFR calculator available at: http://www.[employer].CleanEdison/multiple_crcl_2012.htm Performed By: #### C MPX, LIP #### [facility] [place], [place] [id number] [employer] Adjuster: Bunny Moy MD Albumin [Mass/Vol] 4.0 g/dL Normal 3.5-5.[address] [facility] Comment on above: Performed By: #### C MPX, LIP #### [facility] [address] [place] [phone] [employer] Adjuster: Bunny Moy MD Albumin/Globulin [Mass ratio] 1.3 {ratio} Normal 1.0-2.[address] [facility] Comment on above: Performed By: #### C MPX, LIP #### [facility] [address] [place] [phone] [employer] Adjuster: Bunny Moy MD Alkaline Phos 64 U/L Normal 40-[address] [facility] Comment on above: Performed By: #### C MPX, LIP #### [facility] [address] [place] [address] [phone] [employer] Adjuster: Bunny Moy MD ALT [Catalytic activity/Vol] 284 U/L High 5-[address] [facility] Comment on above: Performed By: #### C MPX, LIP #### [facility] [address] [place] [id number] [employer] Adjuster: Bunny Moy MD Anion gap [Moles/Vol] 18 mmol/L High 9-17 [facility] Comment on above: Performed By: #### C MPX, LIP #### [address] [id number] [employer] Machine Adjuster: Bunny Moy MD AST [Catalytic activity/Vol] 250 U/L High <[address] [facility] Comment on above: Performed By: #### C MPX, LIP #### [address] [id number] [employer] Adjuster: Bunny Moy MD Bilirubin Ql (U) 1.34 mg/dL High 0.3-1.2 [facility] Comment on above: Performed By: #### C MPX, LIP #### [facility] [address] [place] [phone] [employer] Adjuster: Bunny Moy MD Calcium [Mass/Vol] 8.5 mg/dL Low 8.6-10.[address] [facility] Comment on above: Performed By: #### C MPX, LIP #### [address] [id number] [employer] Adjuster: Bunny Moy MD Chloride [Moles/Vol] 103 mmol/L Normal 98-107 [facility] Comment on above: Performed By: #### C MPX, LIP #### [facility] [address] [place] [phone] [employer] Adjuster: Bunny Moy MD CO2 [Moles/Vol] 20 mmol/L Normal 20-[address] [facility] Comment on above: Performed By: #### C MPX, LIP #### [address] [id number] [employer]ing Machine Adjuster: Bunny Moy MD Creatinine [Mass/Vol] 0.50 mg/dL Low 0.70-1.20 [facility] Comment on above: Performed By: #### C MPX, LIP #### [address] [address] [employer] Adjuster: Bunny Moy MD GFR, Amer >60 Normal >60 [facility] Comment on above: Performed By: #### C MPX, LIP #### [facility] [address] [place] [phone] [employer] Adjuster: Bunny Moy MD GFR,non Amer >60 Normal >60 [facility] Comment on above: Performed By: #### C MPX, LIP #### [facility] [address] [place] [phone] [employer]ing [employer] Adjuster: Bunny Moy MD Glucose [Mass/Vol] 173 mg/dL High 70-[address] [facility] Comment on above: Performed By: #### C MPX, LIP #### [facility] [address] [place] [phone] [employer]ing [employer] Adjuster: Bunny Moy MD Potassium [Moles/Vol] 4.4 mmol/L Normal 3.7-5.3 [facility] Comment on above: Performed By: #### C MPX, LIP #### [facility] [address] [place] [phone] [employer] Adjuster: Bunny Moy MD Protein [Mass/Vol] 7.0 g/dL Normal 6.4-8.[address] [facility] Comment on above: Performed By: #### C MPX, LIP #### [address] [id number] [employer]ing Machine Adjuster: Bunny Moy MD Sodium [Moles/Vol] 141 mmol/L Normal 135-[address] [facility] Comment on above: Performed By: #### C MPX, LIP #### [address] [address] Casting Machine Adjuster: Bunny Moy MD Urea nitrogen [Mass/Vol] 11 mg/dL Normal 8- [facility] Comment on above: Performed By: #### C MPX, LIP #### [address] [id number] [employer]ing Machine Adjuster: Bunny Moy MD BUN/CRE Ratio NOT REPORTED Normal - [facility] Comment on above: Performed By: #### C MPX, LIP #### [facility] [address] [place] [phone] Casting Machine Adjuster: Bunny Moy MD Staging: NOT REPORTED Normal [facility] Comment on above: Performed By: #### C MPX, LIP #### [facility] [employer] [address] [place] [phone] [employer]ing Machine Adjuster: Bunny Moy MD Comprehensive Metabolic Pane l w/ Reflex to MGon 10-10-2019 Albumin [Mass/Vol] 4 g/dL 3.5 - 5.2 g/dL [place] Albumin/Globulin [Mass ratio] 1.3 {ratio} [place] ALP [Catalytic activity/Vol] 64 U/L 40 - 129 U/L [place] ALT [Catalytic activity/Vol] 284 U/L High 5 - 41 U/L [place] Anion gap [Moles/Vol] 18 mmol/L High 9 - 17 mmol/L [place] AST [Catalytic activity/Vol] 250 U/L High <40 [place] Bilirubin Ql (U) 1.34 mg/dL High 0.3 - 1.2 mg/dL [place] Bun/Cre Ratio NOT REPORTED [place] Calcium [Mass/Vol] 8.5 mg/dL Low 8.6 - 10. 4 mg/dL [place] Chloride [Moles/Vol] 103 mmol/L 98 - 10 7 mmol/L [place] CO2 [Moles/Vol] 20 mmol/L 20 - 31 mmol/L [place] Creatinine [Mass/Vol] 0.5 mg/dL Low 0.7 - 1.2 mg/dL [place] GFR >60 >60 mL/min [place] GFR Non- >60 >60 mL/min [place] GFR/1.73 sq M predicted among non-blacks MDRD (S/P/Bld) [Vol rate/Area] [place] Comment on above: Average GFR for 60-6 9 years old: 85 mL/min/1.73sq m Chronic Kidney Disease: <60 mL/min/1.73sq m Kidney failure: <15 mL/min/1.73sq m eGFR calculated using average adult body mass. Additional eGFR calculator available at: http://www.[employer].CleanEdison/multiple_crcl_2012.htm GFR/1.73 sq M predicted among non-blacks MDRD (S/P/Bld) [Vol rate/Area] NOT REPORTED [place] Glucose [Mass/Vol] 173 mg/dL High 70 - 99 mg/dL [place] Interpretation and review of laboratory results Abnormal [place] Potassium [Moles/Vol] 4.4 mmol/L 3.7 - 5.3 mmol/L [place] Protein [Mass/Vol] 7.0 g/dL 6.4 - 8.3 g/dL [place] Sodium [Moles/Vol] 141 mmol/L 135 - 144 mmol/L [place] Urea nitrogen [Mass/Vol] 11 mg/dL 8 - 23 mg/dL [place] Lipaseon 04-11-2019 Lipase [Catalytic activity/Vol] 1552 U/L High 13-[address] [facility] Comment on above: Performed By: #### C MPX, LIP #### [facility] [employer] [address] [place] [id number] Casting Machine Adjuster: Bunny Moy MD Interpretation and review of laboratory results Abnormal [place] Lipase [Catalytic activity/Vol] 1552 U/L High 13 - 60 U/L [place] MRI ABDOMEN W WO CONTRAST MR [...] 04/11/2019to be communicated to a licensed caregiver. [place] EXAMINATION: MRI OF THE ABDOMEN WITH [...] reactive free fluid in the the pelvis. [facility] [place], [place] Zev, Mhpn Incoming R adiant Results From [employer] - 04/11/2019 9:05 PM EDT EXAMINATION: MRI [...] 04/11/2019to be communicated to a licensed caregiver. [place] Addendum by Sa maryse Tate MD on 04/15/2019 9:28 AM ADDENDUM: Outside CT imaging from 04/11/2019 is made available for comparison. Aforementioned findings of pancreatitis, cholelithiasis and hepatic fatty infiltration appears similar to prior CT examination. [place] POC Glucose Fingerstickon Glucose [Mass/Vol] 158 mg/dL High 75 - 110 mg/dL [place] Interpretation and review of laboratory results Abnormal [place] Vital Signs Date Time Vital Sign Value Performing Clinician Facility 05-17-2024 11:54-0500 Body mass index (BMI) [Ratio] 32.7 kg/m2 Intron[employer] DO Work Phone: [facility] 05-17-2024 11:45-0500 Body height 172.72 cm Rodolfo Ball DO Work Phone: [facility] 05-17-2024 11:45-0500 Body weight 97.57 kg Rodolfo Ball DO Work Phone: [facility] 05-17-2024 11:45-0500 Diastolic blood pressure 87 mm[Hg] Rodolfo Ball DO Work Phone: [facility] 05-17-2024 11:45-0500 Heart rate 67 /min Rodolfo Ball DO Work Phone: [facility] 05-17-2024 11:45-0500 Respiratory rate 12 /min Rodolfo Ball DO Work Phone: [facility] 05-17-2024 11:45-0500 Systolic blood pressure 155 mm[Hg] Rodolfo Ball DO Work Phone: [facility] 03-21-2024 10:32-0400 Body height 172.72 cm DO Rodolfo Ball Work Phone: [facility] 03-21-2024 10:32-0400 Body mass index (BMI) [Ratio] 33.5 kg/m2 DO Rodolfo Ball Work Phone: [facility] 03-21-2024 10:32-0400 Body weight 100.24 kg DO Rodolfo Ball Work Phone: [facility] 03-21-2024 10:32-0400 Diastolic blood pressure 76 mm[Hg] DO Rodolfo Ball Work Phone: [facility] 03-21-2024 10:32-0400 Heart rate 60 /min DO Rodolfo Ball Work Phone: [facility] 03-21-2024 10:32-0400 Systolic blood pressure 147 mm[Hg] DO Rodolfo Ball Work Phone: [facility] 01-05-2024 14:53-0400 Body height 172.72 cm [facility] 01-05-2024 14:53-0400 Body mass index (BMI) [Ratio] 33.3 kg/m2 [facility] 01-05-2024 14:53-0400 Body weight 99.33 kg [facility] 01-05-2024 14:53-0400 Diastolic blood pressure 89 mm[Hg] [facility] 01-05-2024 14:53-0400 Heart rate 73 /min [facility] 01-05-2024 14:53-0400 Respiratory rate 12 /min [facility] 01-05-2024 14:53-0400 Systolic blood pressure 139 mm[Hg] [facility] 09-21-2023 09:40-0400 Body weight 101.71 kg DO Rodolfo Ball Work Phone: [facility] 09-21-2023 09:40-0400 Diastolic blood pressure 77 mm[Hg] DO Rodolfo Ball Work Phone: [facility] 09-21-2023 09:40-0400 Heart rate 62 /min DO Rodolfo Ball Work Phone: [facility] 09-21-2023 09:40-0400 Systolic blood pressure 136 mm[Hg] DO Rodolfo Ball Work Phone: [facility] 09-01-2023 14:48-0500 Body height 172.72 cm DO Rodolfo Ball Work Phone: [facility] 09-01-2023 14:48-0500 Body mass index (BMI) [Ratio] 34.4 kg/m2 DO Rodolfo Ball Work Phone: [facility] 09-01-2023 14:48-0500 Body weight 102.68 kg DO Rodolfo Ball Work Phone: [facility] 09-01-2023 14:48-0500 Diastolic blood pressure 92 mm[Hg] DO Rodolfo Ball Work Phone: [facility] 09-01-2023 14:48-0500 Heart rate 69 /min DO Rodolfo Ball Work Phone: [facility] 09-01-2023 14:48-0500 Respiratory rate 12 /min DO Rodolfo Ball Work Phone: [facility] 09-01-2023 14:48-0500 Systolic blood pressure 160 mm[Hg] DO Rodolfo Ball Work Phone: [facility] 07-11-2023 14:30-0500 Body height 172.72 cm Rodolfo Ball Other [facility] 07-11-2023 14:30-0500 Body mass index (BMI) [Ratio] 36.06 kg/m2 Rodolfo Ball Other [employer] Other 07-11-2023 14:30-0500 Body weight 107.59 kg Rodolfo Ball Other [facility] 07-11-2023 14:30-0500 Diastolic blood pressure 80 mm[Hg] Rodolfo Ball Other [facility] 07-11-2023 14:30-0500 Respiratory rate 12 /min Rodolfo Ball Other [facility] Other 07-11-2023 14:30-0500 Systolic blood pressure 140 mm[Hg] Rodolfo Ball Other [facility] 05-26-2023 11:15-0500 Body height 172.72 cm Rodolfo Ball Other [facility] 05-26-2023 11:15-0500 Body mass index (BMI) [Ratio] 35.51 kg/m2 Rodolfo Ball Other [facility] Other 05-26-2023 11:15-0500 Body weight 105.96 kg Rodolfo Ball Other [facility] Other 05-26-2023 11:15-0500 Body weight 105.95 kg DO Rodolfo Ball Work Phone: [facility] 05-26-2023 11:15-0500 Diastolic blood pressure 84 mm[Hg] Rodolfo Ball Other [facility] 05-26-2023 11:15-0500 Systolic blood pressure 155 mm[Hg] Rodolfo Ball Other [facility] 03-30-2023 12:20-0400 Diastolic blood pressure 62 mm[Hg] DO Rodolfo Ball Work Phone: [facility] 03-30-2023 12:20-0400 Heart rate 62 /min DO Rodolfo Ball Work Phone: [facility] 03-30-2023 12:20-0400 Respiratory rate 16 /min DO Rodolfo Ball Work Phone: [facility] 03-30-2023 12:20-0400 SaO2% (BldA) [Mass fraction] 97 % DO Rodolfo Ball Work Phone: [facility] 03-30-2023 12:20-0400 Systolic blood pressure 122 mm[Hg] DO Rodolfo Ball Work Phone: [facility] 03-30-2023 10:29-0400 Body height 175.26 cm DO Rodolfo Ball Work Phone: [facility] 03-30-2023 10:29-0400 Body weight 104.32 kg DO Rodolfo Ball Work Phone: [facility] 03-23-2023 09:00-0400 Body height 172.72 cm Imad Asaad Other [facility] Other 03-23-2023 09:00-0400 Body mass index (BMI) [Ratio] 34.82 kg/m2 Imad Asaad Other [employer] Other 03-23-2023 09:00-0400 Body weight 103.87 kg Imad Asaad Other [employer] Other 03-23-2023 09:00-0400 Diastolic blood pressure 78 mm[Hg] Imad Asaad Other [employer] Other 03-23-2023 09:00-0400 Systolic blood pressure 171 mm[Hg] Imad Asaad Other [employer] Other 02-22-2023 15:45-0400 Body height 172.72 cm Rodolfo Ball Other [employer] Other 02-22-2023 15:45-0400 Body mass index (BMI) [Ratio] 35.88 kg/m2 Rodolfo Ball Other [employer] Other 02-22-2023 15:45-0400 Body weight 107.05 kg Rodolfo Ball Other [employer] Other 02-22-2023 15:45-0400 Diastolic blood pressure 82 mm[Hg] Rodolfo Ball Other [employer] Other 02-22-2023 15:45-0400 Respiratory rate 12 /min Rodolfo Ball Other [employer] Other 02-22-2023 15:45-0400 Systolic blood pressure 143 mm[Hg] Rodolfo Ball Other [employer] Other 01-25-2023 15:15-0400 Body height 172.72 cm Imad Asaad Other [employer] Other 01-25-2023 15:15-0400 Body mass index (BMI) [Ratio] 36.18 kg/m2 Imad Asaad Other [employer] Other 01-25-2023 15:15-0400 Body weight 107.96 kg Imad Asaad Other [employer] Other 01-25-2023 15:15-0400 Diastolic blood pressure 70 mm[Hg] Imad Asaad Other [employer] Other 01-25-2023 15:15-0400 Systolic blood pressure 144 mm[Hg] Imad Asaad Other [employer] [facility] Other 12-02-2022 13:45-0400 Body height 172.72 cm Rodolfo Ball Other [employer] Other 12-02-2022 13:45-0400 Body mass index (BMI) [Ratio] 36.24 kg/m2 Rodolfo Ball Other [employer] Other 12-02-2022 13:45-0400 Body weight 108.14 kg Rodolfo Ball Other [employer] Other 12-02-2022 13:45-0400 Diastolic blood pressure 86 mm[Hg] Rodolfo Ball Other [employer] Other 12-02-2022 13:45-0400 Respiratory rate 12 /min Rodolfo Ball Other [employer] Other 12-02-2022 13:45-0400 Systolic blood pressure 147 mm[Hg] Rodolfo Ball Other [employer] Other 11-04-2022 15:00-0400 Body height 172.72 cm Rodolfo Ball Other [employer] [facility] Other 11-04-2022 15:00-0400 Body mass index (BMI) [Ratio] 36.81 kg/m2 Rodolfo Ball Other [employer] Other 11-04-2022 15:00-0400 Body weight 109.82 kg Rodolfo Ball Other [employer] [facility] Other 11-04-2022 15:00-0400 Diastolic blood pressure 82 mm[Hg] Rodolfo Ball Other [employer] Other 11-04-2022 15:00-0400 SaO2% (BldA) [Mass fraction] 96 % Rodolfo Ball Other [employer] [facility] Other 11-04-2022 15:00-0400 Systolic blood pressure 130 mm[Hg] Rodolfo Ball Other [employer] [facility] Other 04-18-2019 08:27-0400 Body Temperature 97.59 [degF] [facility] [place] [place] 04-18-2019 08:27-0400 BP Diastolic 86 mm[Hg] [facility] 04-18-2019 08:27-0400 BP Systolic 146 mm[Hg] Joseph Guzmán [facility] [place] , [place] 04-18-2019 08:27-0400 Pulse (Heart Rate) 59 /min Joseph Guzmán [facility], [place] 04-18-2019 08:27-0400 Pulse Oximetry 95 % Joseph López [place] , [place] 04-18-2019 08:27-0400 Respiratory Rate 16 /min [facility] [place] 04-17-2019 09:40-0400 BMI (Body Mass Index) 35 kg/m2 Joseph Guzmán [facility], [place] 04-17-2019 09:40-0400 Body weight 107.5 kg Joseph Guzmán [facility] , [place] 04-17-2019 09:40-0400 Height 175.3 cm Joseph Guzmán [facility] , [place] Encounters Encounter Date Encounter Type Care Provider Facility Start: 05-17-2024 End: 05-17-2024 ambulatory Rodolfo Ball DO Work Phone: [facility] Work Phone: Start: 05-17-2024 End: 05-17-2024 Patient encounter procedure Rodolfo Ball DO Work Phone: [facility] Work Phone: Start: 05-09-2024 Non-patient / Non-visit Rodolfo Ball DO Work Phone: [facility] Work Phone: Start: 03-26-2024 End: 03-27-2024 ambulatory DO Rodolfo Ball Work Phone: [facility] Work Phone: Start: 03-26-2024 End: 03-27-2024 Patient encounter procedure DO Rodolfo Ball Work Phone: [facility] [address] [place] Work Phone: Start: 03-21-2024 End: 03-21-2024 ambulatory DO Rodolfo Ball Work Phone: [facility] Work Phone: Start: 03-21-2024 End: 03-21-2024 Patient encounter procedure DO Rodolfo Ball Work Phone: [facility] Gastroenterology Work Phone: Start: 03-18-2024 End: 03-18-2024 Patient encounter procedure DO Rodolfo Ball Work Phone: [facility] [place] Work Phone: Start: 03-18-2024 End: 03-18-2024 ambulatory DO Rodolfo Ball Work Phone: [facility] Work Phone: Start: 01-05-2024 End: 01-05-2024 Patient encounter procedure [facility] Work Phone: Start: 01-05-2024 End: 01-05-2024 ambulatory [facility] Work Phone: Start: 01-05-2024 Telephone encounter Rodolfo Ball FP [facility] Start: 11-08-2023 End: 11-08-2023 ambulatory DO Rodolfo Ball Work Phone: [facility] Work Phone: Start: 11-08-2023 End: 11-08-2023 Patient encounter procedure DO Rodolfo Ball Work Phone: [facility] Work Phone: Start: 09-27-2023 End: 09-27-2023 ambulatory DO Rodolfo Ball Work Phone: [facility] Work Phone: Start: 09-27-2023 End: 09-27-2023 Patient encounter procedure DO Rodolfo Ball Work Phone: [facility] Work Phone: Start: 09-22-2023 Non-patient / Non-visit DO Rodolfo Ball Work Phone: [facility] Work Phone: Start: 09-21-2023 End: 09-21-2023 ambulatory DO Rodolfo Ball Work Phone: [facility] Work Phone: Start: 09-21-2023 End: 09-21-2023 Patient encounter procedure DO Rodolfo Ball Work Phone: [facility] Work Phone: Start: 09-20-2023 End: 09-20-2023 ambulatory DO Rodolfo Ball Work Phone: [facility] Work Phone: Start: 09-20-2023 End: 09-20-2023 Patient encounter procedure DO Rodolfo Ball Work Phone: [facility] [place] Work Phone: Start: 09-01-2023 End: 09-01-2023 Patient encounter procedure DO Rodolfo Ball Work Phone: [facility] Work Phone: Start: 08-22-2023 End: 08-22-2023 Patient encounter procedure DO Rodolfo Ball Work Phone: [facility] [address] Work Phone: Start: 08-22-2023 End: 08-22-2023 ambulatory DO Rodolfo Ball Work Phone: [facility] Work Phone: Start: 07-11-2023 End: 07-11-2023 ambulatory Rodolfo Ball Other [employer] Other Start: 07-11-2023 Office outpatient visit 25 minutes Rodolfo Ball [facility] Start: 07-11-2023 End: 07-11-2023 Patient encounter procedure DO Rodolfo Ball Work Phone: [facility] Work Phone: Start: 07-05-2023 End: 07-05-2023 ambulatory Rodolfo Ball Other [employer] Other Start: 07-05-2023 Telephone encounter Rodolfo Ahmadi FP [facility] Start: 05-28-2023 End: 05-28-2023 ambulatory Rodolfo Ahmadi Other [employer] Other Start: 05-28-2023 Telephone encounter Rodolfo OLSEN [facility] Start: 05-26-2023 End: 05-26-2023 ambulatory Rodolfo Ahmadi Other [employer] Other Start: 05-26-2023 Office outpatient visit 25 minutes Rodolfo Ahmadi [facility] Start: 05-26-2023 End: 05-26-2023 Patient encounter procedure DO Rodolfo Ahmadi Work Phone: [facility] Work Phone: Start: 04-13-2023 End: 04-13-2023 ambulatory Rodolfo Ahmadi Other [employer] Other Start: 04-13-2023 Telephone encounter Rodolfo OLSEN [facility] Start: 04-11-2023 End: 04-11-2023 ambulatory Rodolfo Ahmadi Other [employer] Other Start: 04-11-2023 Telephone encounter Rodolfo OLSEN [facility] Start: 03-30-2023 Telephone encounter Rodolfo OLSEN [facility] Start: 03-30-2023 End: 03-30-2023 Admission to same day surgery center DO Rodolfo Ball Work Phone: [facility] Work Phone: Start: 03-30-2023 End: 03-30-2023 ambulatory DO Rodolfo Ahmadi Work Phone: [facility] Work Phone: Start: 03-23-2023 End: 03-23-2023 ambulatory Imad Asaad Other [employer] Other Start: 03-23-2023 Office outpatient visit 25 minutes Imad Asaad [facility] Start: 02-24-2023 End: 02-24-2023 ambulatory Rodolfo Ahmadi Other [employer] Other Start: 02-24-2023 Telephone encounter Rodolfo OLSEN [facility] Start: 02-22-2023 End: 02-22-2023 ambulatory Rodolfo Ahmadi Other [employer] Other Start: 02-22-2023 Office outpatient visit 25 minutes Rodolfo Ahmadi [facility] Start: 02-22-2023 Telephone encounter Rodolfo Ahmadi FP [facility] Start: 02-13-2023 End: 02-13-2023 Patient encounter procedure DO Rodolfo Ahmadi Work Phone: [facility] [place] Work Phone: Start: 02-10-2023 End: 02-10-2023 ambulatory Rodolfo Ahmadi Other [employer] Other Start: 02-10-2023 Telephone encounter Rodolfo OLSEN G [facility] Start: 02-09-2023 End: 02-09-2023 ambulatory DO Rodolfo Ahmadi Work Phone: [facility] Work Phone: Start: 02-09-2023 End: 02-09-2023 Patient encounter procedure DO Rodolfo Ahmadi Work Phone: [facility] Work Phone: Start: 01-30-2023 End: 01-30-2023 ambulatory Imad Asaad Other [employer] Other Start: 01-30-2023 Telephone encounter Imad Asaad [facility] Start: 01-25-2023 End: 01-25-2023 Patient encounter procedure DO Rodolfo Ahmadi Work Phone: [facility] [place] Work Phone: Start: 01-25-2023 End: 01-25-2023 ambulatory DO Rodolfo Ball Work Phone: [facility] Work Phone: Start: 01-25-2023 Office outpatient ne w 45 minutes Imad Asaad [facility] Start: 12-19-2022 End: 12-19-2022 ambulatory Rodolfo Galdino Other [employer] Liaison Other Start: 12-19-2022 Telephone encounter Rodolfo OLSEN [facility] Start: 12-02-2022 End: 12-02-2022 ambulatory Rodolfo Ahmadi Other [employer] Liaison Other Start: 12-02-2022 Office outpatient visit 25 minutes Rodolfo Ahmadi [facility] Start: 11-04-2022 End: 11-04-2022 ambulatory Rodolfo Ahmadi Other [employer]ia[employer] Other Start: 11-04-2022 Patient encounter procedure Rodolfo Ahmadi [facility] Start: 10-14-2022 End: 10-14-2022 ambulatory Rodolfo Ahmadi Other [employer]ia[facility] Other Start: 10-14-2022 Telephone encounter Rodolfo OLSEN [facility] Start: 08-30-2022 End: 08-30-2022 ambulatory Rodolfo Ahmadi Other [employer] [facility]ia[facility] Other Start: 08-30-2022 Telephone encounter Rdoolfo OLSEN [facility] Start: 07-15-2022 End: 07-15-2022 ambulatory Rodolfo Ahmadi Other [employer] [facility]ia[facility] Other Start: 07-15-2022 Office outpatient visit 15 minutes Rodolfo Ahmadi [facility] Start: 05-07-2022 End: 05-08-[address] RODOLFO AHMADI Facility:[facility] Start: 01-28-2022 End: 01-29-[address] RODOLFO AHMADI Facility:[facility] Start: 10-26-2019 Adult health examination Imad Asaad Other [employer] Liaison Other Start: 04-25-2019 Problem, abnormal examination Imad Asaad Other [employer] [facility]ia[facility] Other Start: 04-11-2019 End: 04-18-2019 Evaluation and management of inpatient GEMA MCKEON [facility] Start: 04-11-2019 End: 04-18-2019 Evaluation and management of inpatient Joseph oCntreras Work Phone: [address] Onc/Med Surg Comment on above: Acute gallstone panc reatitis (Primary Dx) Procedures Date Procedure Procedure Detail Performing Clinician Start: 03-18-2024 Ultrasonography of liver DO Rodolfo martinez Work Phone: Start: 09-20-2023 CT of abdomen with contrast DO Rodolfo Ahmadi Work Phone: Start: 03-30-2023 Esophagogastroduodenoscopy DO Rodolfo pereira Work Phone: Start: 02-13-2023 CT of abdomen with contrast DO Rodolfo Ahmadi Work Phone: Start: 02-09-2023 Ultrasound elastography of liver DO Rambo Ahmadi Work Phone: Start: 01-28-[address] RODOLFO AHMADI Comment on above: Performed By: #### PSASC #### [facility] [address] [place] [address] Dr. Poncho Zamarripa Start: 04-18-2019 Glucose blood reagent strip GEMA WRIGHT Start: 04-18-2019 DISCHARGE PATIENT GEMA MCKEON Start: 04-18-2019 Gluc bld gluc mntr dev cleared fda spec home use GEMA MIKE Start: 04-18-2019 Glucose blood reagent strip Vargas Dodson Work Phone: Start: 04-18-2019 INITIATE OXYGEN THERAPY PROTOCOL GEMA MIKE Start: 04-18-2019 Glucose blood reagent strip GEMA CARA WRIGHT Start: 04-18-2019 Glucose blood reagent strip Vargas Dodson Work Phone: Start: 04-18-2019 Assay of magnesium GEMA MIKE Start: 04-18-2019 Blood count complete auto&auto difrntl wbc GEMA MIKE Start: 04-18-2019 Renal function panel GEMA MIKE Start: 04-18-2019 Gluc bld gluc mntr dev cleared fda spec home use GEMA MIKE Start: 04-18-2019 Assay of magnesium Vargas Dodson Work Phone: Start: 04-18-2019 Blood count complete auto&auto difrntl wbc Vargas Dodson Work Phone: Start: 04-18-2019 Renal function panel Vargas Dodson Work Phone: Start: 04-18-2019 INTAKE AND OUTPUT GEMA MCKEON Start: 04-18-2019 Gluc bld gluc mntr dev cleared fda spec home use GEMA MCKEON Start: 04-17-2019 Glucose blood reagent strip GEMA WRIGHT Start: 04-17-2019 Glucose blood reagent strip Vargas Boudreauxbryan Work Phone: Start: 04-17-2019 Gluc bld gluc mntr dev cleared fda spec home use GEMA MCKEON Start: 04-17-2019 DIET GENERAL GEMA MCKEON Start: 04-17-2019 Glucose blood reagent strip GEMA WRIGHT Start: 04-17-2019 Glucose blood reagent strip Vargas Dodson Work Phone: Start: 04-17-2019 Level iv surg pathology gross&microscopic exam GEMA MCKEON Start: 04-17-2019 Glucose blood reagent strip GEMA WRIGHT Start: 04-17-2019 TRANSFER PATIENT GEMA MIKE Start: 04-17-2019 Level iv surg pathology gross&microscopic exam GEMA MCKEON Start: 04-17-2019 Glucose blood reagent strip Vargas Dodson Work Phone: Start: 04-17-2019 Gluc bld gluc mntr dev cleared fda spec home use GEMA MCKEON Start: 04-17-2019 End: 04-17-2019 CHOLECYSTECTOMY LAPAROSCOPIC ROBOTIC Cory Orellana Work Phone: Start: 04-17-2019 INITIATE OXYGEN THERAPY PROTOCOL GEMA MCKEON Start: 04-17-2019 Glucose blood reagent strip Vargas Boudreauxuger Work Phone: Start: 04-17-2019 Glucose blood reagent strip Vargas Perry Hauger Work Phone: Start: 04-17-2019 Prothrombin time GEMA MCKEON Start: 04-17-2019 Thromboplastin time partial plasma/whole blood EGMA MCKEON Start: 04-17-2019 Gluc bld gluc mntr dev cleared fda spec home use GEMA MCKEON Start: 04-17-2019 Prothrombin time Vargas Boudreauxuger Work Phone: Start: 04-17-2019 Thromboplastin time partial plasma/whole blood Vargas Perry [employer] Work Phone: Start: 04-17-2019 INTAKE AND OUTPUT GEMA MCKEON Start: 04-17-2019 Gluc bld gluc mntr dev cleared fda spec home use GEMA MCKEON Start: 04-16-2019 Glucose blood reagent strip GEMA WRIGHT Start: 04-16-2019 Glucose blood reagent strip Uliceser Vicky Hauger Work Phone: Start: 04-16-2019 Gluc bld gluc mntr dev cleared fda spec home use GEMA MCKEON Start: 04-16-2019 Glucose blood reagent strip GEMA WRIGHT Start: 04-16-2019 Glucose blood reagent strip Uliceser Vicky Hauger Work Phone: Start: 04-16-2019 DIETARY NUTRITION SUPPLEMENTS GEMA KIM Start: 04-16-2019 Glucose blood reagent strip GEMA WRIGHT Start: 04-16-2019 Glucose blood reagent strip Uliceser M Hauger Work Phone: Start: 04-16-2019 Gluc bld gluc mntr dev cleared fda spec home use GEMA MCKEON Start: 04-16-2019 INITIATE OXYGEN THERAPY PROTOCOL GEMA MCKEON Start: 04-16-2019 Glucose blood reagent strip GEMA WRIGHT Start: 04-16-2019 Glucose blood reagent strip Christopher M Hauger Work Phone: Start: 04-16-2019 Assay of amylase GEMA MIKE Start: 04-16-2019 Assay of lipase GEMA MIKE Start: 04-16-2019 Assay of magnesium GEMA MIKE Start: 04-16-2019 Blood count complete auto&auto difrntl wbc GEMA MIKE Start: 04-16-2019 Hepatic function panel GEMA MIKE Start: 04-16-2019 Renal function panel GEMA MCKEON Start: 04-16-2019 Reticulated platelet assay GEMA WADDELLCATHLEEN JONES Start: 04-16-2019 Gluc bld gluc mntr dev cleared fda spec home use GEMA WADDELLJUDY Start: 04-16-2019 Assay of amylase Uliceser M Hauger Work Phone: Start: 04-16-2019 Assay of lipase Uliceser M Hauger Work Phone: Start: 04-16-2019 Assay of magnesium Christkalieer M Hauger Work Phone: Start: 04-16-2019 Blood count complete auto&auto difrntl wbc Uliceser Vicky Hauger Work Phone: Start: 04-16-2019 Hepatic function panel Christkalieer M Hauger Work Phone: Start: 04-16-2019 IMMATURE PLATELET FRACTION Uliceser Vicky Hauger Work Phone: Start: 04-16-2019 Renal function panel Uliceser M Hauger Work Phone: Start: 04-16-2019 INTAKE AND OUTPUT GEMAKavya MCKEON Start: 04-16-2019 Gluc bld gluc mntr dev cleared fda spec home use GEMA MIKE Start: 04-15-2019 Glucose blood reagent strip GEMA WRIGHT Start: 04-15-2019 Gluc bld gluc mntr dev cleared fda spec home use GEMA MCKEON Start: 04-15-2019 Glucose blood reagent strip Uliceser Vicky Hauger Work Phone: Start: 04-15-2019 Glucose blood reagent strip GEMA WRIGHT Start: 04-15-2019 Glucose blood reagent strip Christkalieer Vicky Hauger Work Phone: Start: 04-15-2019 Gluc bld gluc mntr dev cleared fda spec home use GEMA MCKEON Start: 04-15-2019 Glucose blood reagent strip GEMA WRIGHT Start: 04-15-2019 INITIATE OXYGEN THERAPY PROTOCOL GMEA MCKEON Start: 04-15-2019 Glucose blood reagent strip Vargas Boudreauxbryan Work Phone: Start: 04-15-2019 Assay of amylase GEMA MCKEON Start: 04-15-2019 Assay of lipase GEMA MCKEON Start: 04-15-2019 Assay of phosphorus inorganic GEMA KIM Start: 04-15-2019 Blood count complete automated GEMA BARBOSA Start: 04-15-2019 Calcium ionized GEMA MCKEON Start: 04-15-2019 Comprehensive metabolic panel GEMA KIM Start: 04-15-2019 Reticulated platelet assay GEMA JONES Start: 04-15-2019 Gluc bld gluc mntr dev cleared fda spec home use GEMA MCKEON Start: 04-15-2019 Assay of amylase Joseph [...] Start: 04-14-2019 Glucose blood reagent strip Joseph atwood Work Phone: Start: 04-14-2019 Glucose blood reagent strip GEMA WRIGHT Start: 04-14-2019 IP CONSULT TO EQUAL OPPORTUNITY OFFICER GEMA KEEN Start: 04-14-2019 Glucose blood reagent strip Joseph atwood Work Phone: Start: 04-14-2019 Glucose blood reagent strip GEMA CARA WRIGHT Start: 04-14-2019 Glucose blood reagent strip Joseph atwood Work Phone: Start: 04-14-2019 Ct abdomen & pelvis w/contrast material GEMA MCKEON Start: 04-14-2019 Gluc bld gluc mntr dev cleared fda spec home use GEMA MCKEON Start: 04-14-2019 INITIATE OXYGEN THERAPY PROTOCOL GEMA MCKEON Start: 04-14-2019 Ct abdomen & pelvis w/contrast material Anmol Hattie Work Phone: Start: 04-14-2019 Assay of amylase GEMA MCKEON Start: 04-14-2019 Assay of lipase GEMA MCKEON Start: 04-14-2019 Blood count complete automated GEMA BARBOSA Start: 04-14-2019 Calcium ionized GEMA MCKEON Start: 04-14-2019 Reticulated platelet assay GEMA JONES Start: 04-14-2019 Assay of amylase Joseph Contreras Work Phone: Start: 04-14-2019 Assay of lipase Joseph Contreras Work Phone: Start: 04-14-2019 Blood count complete automated Joseph Contreras Work Phone: Start: 04-14-2019 Calcium ionized Joseph Contreras Work Phone: Start: 04-14-2019 IMMATURE PLATELET FRACTION Joseph liang Work Phone: Start: 04-14-2019 Gluc bld gluc mntr dev cleared fda spec home use GEMA MCKEON Start: 04-14-2019 INTAKE AND OUTPUT GEMA MCKEON Start: 04-14-2019 Gluc bld gluc mntr dev cleared fda spec home use GEMA MCKEON Start: 04-13-2019 Glucose blood reagent strip GEMA WRIGHT Start: 04-13-2019 Gluc bld gluc mntr dev cleared fda spec home use GEMA MIKE Start: 04-13-2019 Glucose blood reagent strip Joseph Whitehead angelic Work Phone: Start: 04-13-2019 Glucose blood reagent strip GEMA CARA WRIGHT Start: 04-13-2019 Glucose blood reagent strip Joseph Whitehead angel[employer] Work Phone: Start: 04-13-2019 Glucose blood reagent strip GEMA CARA WRIGHT Start: 04-13-2019 Glucose blood reagent strip Isaisarita Perry Susy Work Phone: Start: 04-13-2019 INITIATE OXYGEN THERAPY PROTOCOL GEMA MIKE Start: 04-13-2019 Glucose blood reagent strip Joseph Whitehead angelic Work Phone: Start: 04-13-2019 Assay of lipase GEMA MCKEON Start: 04-13-2019 Calcium ionized GEMA MIKE Start: 04-13-2019 Hepatic function panel GEMA MCKEON Start: 04-13-2019 Assay of lipase Isam Daboul Work Phone: Start: 04-13-2019 Calcium ionized Isam Daboul Work Phone: Start: 04-13-2019 Hepatic function panel Isam Daboul Work Phone: Start: 04-13-2019 Glucose blood reagent strip GEMA CARA WRIGHT Start: 04-13-2019 Glucose blood reagent strip Joseph atwood Work Phone: Start: 04-13-2019 INTAKE AND OUTPUT GEMA MIKE Start: 04-13-2019 Glucose blood reagent strip GEMA CARA WRIGHT Start: 04-12-2019 Glucose blood reagent strip Joseph Whitehead angelic Work Phone: Start: 04-12-2019 Glucose blood reagent strip Joseph Whitehead angelic Work Phone: Start: 04-12-2019 Hemoglobin glycosylated a1c GEMA WRIGHT Start: 04-12-2019 Glucose blood reagent strip GEMA WRIGHT Start: 04-12-2019 Hemoglobin glycosylated a1c Joseph Whitehead angelic Work Phone: Start: 04-12-2019 TRANSFER PATIENT GEMA MIKE Start: 04-12-2019 Glucose blood reagent strip Joseph atwood Work Phone: Start: 04-12-2019 Cmbn ndsc cathj biliary&pncrtc ductal sys rs&i Leonela Fenton Work Phone: Start: 04-12-2019 End: 04-12-2019 ERCP SPHINCTER/PAPILLOTOMY Leonela Fenton Work Phone: Start: 04-12-2019 End: 04-12-2019 ERCP STONE REMOVAL Leonela Fenton Work Phone: Start: 04-12-2019 Glucose blood reagent strip GEMA CARA WIRGHT Start: 04-12-2019 Glucose blood reagent strip Joseph atwood Work Phone: Start: 04-12-2019 INITIATE OXYGEN THERAPY PROTOCOL GEMA MCKEON Start: 04-12-2019 ENDO PROCEDURE GEMA MCKEON Start: 04-12-2019 Assay of amylase GEMA MCKEON Start: 04-12-2019 Assay of lipase GEMA MCKEON Start: 04-12-2019 Assay of magnesium GEMA MCKEON Start: 04-12-2019 Assay of phosphorus inorganic GEMA KIM Start: 04-12-2019 Assay of triglycerides GEMA MCKEON Start: 04-12-2019 Blood count complete auto&auto difrntl wbc GEMA MCKEON Start: 04-12-2019 Blood count complete automated GEMA BARBOSA Start: 04-12-2019 Calcium ionized GEMA MCKEON Start: 04-12-2019 Prothrombin time GEMA MCKEON Start: 04-12-2019 Reticulated platelet assay GEMA JONES Start: 04-12-2019 Assay of amylase Jewel A Cha Work Phone: Start: 04-12-2019 Assay of lipase Jewel A Cha Work Phone: Start: 04-12-2019 Assay of magnesium Chucky Schmitz Work Phone: Start: 04-12-2019 Assay of phosphorus inorganic Chucky echols Work Phone: Start: 04-12-2019 Assay of triglycerides Chucky Perry Adelaide n Work Phone: Start: 04-12-2019 Blood count complete auto&auto difrntl wbc Chucky Schmitz Work Phone: Start: 04-12-2019 Blood count complete automated Chucky Schmitz Work Phone: Start: 04-12-2019 Calcium ionized Chucky Schmitz Work Phone: Start: 04-12-2019 IMMATURE PLATELET FRACTION Chucky silva Work Phone: Start: 04-12-2019 Prothrombin time Chucky Schmitz Work Phone: Start: 04-12-2019 Glucose blood reagent strip GEMA WRIGHT Start: 04-12-2019 Glucose blood reagent strip Joseph S angelic Work Phone: Start: 04-12-2019 DAILY WEIGHTS GEMA MCKEON Start: 04-12-2019 INTAKE AND OUTPUT GEMA MCKEON Start: 04-11-2019 Glucose blood reagent strip GEMA WRIGHT Start: 04-11-2019 Mri abdomen w/o & w/contrast material GEMA MCKEON Start: 04-11-2019 Glucose blood reagent strip Joseph S [employer] Work Phone: Start: 04-11-2019 Assay of lipase GEMA MCKEON Start: 04-11-2019 Blood count complete auto&auto difrntl wbc GEMA MCKEON Start: 04-11-2019 Mri abdomen w/o & w/contrast material Nathaniel Eubanks Work Phone: Start: 04-11-2019 INITIATE OXYGEN THERAPY PROTOCOL GEMA MCKEON Start: 04-11-2019 INTAKE AND OUTPUT GEMA MCKEON Start: 04-11-2019 IP CONSULT TO GENERAL SURGERY GEMA KIM Start: 04-11-2019 IP CONSULT TO GI GEMA MCKEON Start: 04-11-2019 NOTIFY PHYSICIAN (SPECIFY) GEMA JONES Start: 04-11-2019 OT EVAL AND TREAT GEMA MCKEON Start: 04-11-2019 PLACE INTERMITTENT PNEUMATIC COMPRESSION DEVICE GEMA WADDELLCATHLEENWHITPebbles Start: 04-11-2019 PT EVAL AND TREAT GEMA WADDELLCATHLEENWHITPebbles Start: 04-11-2019 PULSE OXIMETRY SPOT CHECK GEMA AGTES AUGUSTO Start: 04-11-2019 FULL CODE GEMA MCKEON Start: 04-11-2019 VITAL SIGNS GEMA MCKEON Start: 04-11-2019 Assay of lipase Karol Lent[employer] Work Phone: Start: 04-11-2019 Blood count complete auto&auto difrntl wbc Filtrboxdeanna Aguirre Work Phone: Start: 04-11-2019 PULSE OXIMETRY SPOT CHECK Leonela Fenton Work Phone: Start: 04-11-2019 PATIENT STATUS (DIRECT) GEMA MCKEON Start: 10-03-2016 Hyperlipidemia screening Imad Asaad Other Start: 10-03-2016 Screening for malignant neoplasm of prostate Imad Asaad Other Depression screening Imad As aad Other End: 03-12-2021 Laboratory test result abnormal Imad Asa ad Other Screening for malign ant neoplasm of prostate Imad Asaad Other Plan of Treatment Date Care Activity Detail Author Start: 03-30-2023 [facility] Start: 02-09-2023 [facility] Start: 01-25-2023 Hepatitis A virus antibody, IgM type [facility] Start: 01-25-2023 Hepatitis B core ant ibody measurement [facility] Start: 01-25-2023 Hepatitis B core ant ibody measurement, IgM type [facility] Start: 01-25-2023 [facility] Start: 04-18-2020 Creatinine monitoring Creatinine mon [place]oring [place] Start: 04-18-2020 Potassium monitoring Potassium monit [place], [place] Start: 04-12-2020 A1C test (Diabetic o r Prediabetic) A1C test (Diabetic or Prediabetic) [place] Start: 2018 Pneumococcal 65+ yea rs Vaccine (1 of 2 - PCV13) Pneumococcal 65+ years Vaccine (1 of 2 - PCV13) [place] Start: 12-14-2003 Colon cancer screen colonoscopy Colon cancer screen colonoscopy [place] Start: 12-14-2003 Shingles Vaccine (1 of 2) Shingles V accine (1 of 2) [place] Start: 1972 DTaP/Tdap/Td vaccine (1 - Tdap) DTaP/Tdap/Td vaccine (1 - Tdap) [place] Start: 12-14-1971 Diabetic microalbumi dilma test Diabetic microalbuminuria test [place], [place] Start: 1968 HIV screen HIV screen [place], [place] Start: 12-14-1963 [object Object] Diabetic foot exam M [place], [place] Start: 12-14-1963 Diabetic retinal exam Diabetic retin [place] Start: 12-14-1963 Lipid screen Lipid screen [place], [place] Start: 1953 Hepatitis C screen Hepatitis C scree n [place] Actin smooth muscle IgG Ab [Units/volume] in Serum [facility] Alpha 1 antitrypsin [Mass/volume] in Serum or Plasma [facility] Alpha 1 antitrypsin phenotyping [Identifier] in Serum or Plasma by Immunofixation [facility] [id number]. tumor marker [Mass/volume] in Serum or Plasma [facility] [id number]. tumor marker [Mass/volume] in Serum or Plasma [facility] CBC Auto Differential CBC Auto D ifferential Lab Routine Tomorrow AM until discontinued starting 04/18/2019, 1 completed [place] Comment on above: Tomorrow AM until di scontinued starting 04/18/2019, 1 completed Ceruloplasmin [Mass/volume] in Serum or Plasma [facility] Comprehensive metabo lic 2000 panel - Serum or Plasma [facility] Hepatitis A virus Ab [Presence] in Serum by Immunoassay [facility] Hepatitis B virus boswell rface Ab [Presence] in Serum [facility] Hepatitis B virus boswell rface Ag [Presence] in Serum or Plasma by Immunoassay [facility] Hepatitis C virus Ig G Ab [Presence] in Serum or Plasma by Immunoassay [facility] HFE gene mutations f ound [Identifier] in Blood or Tissue by Molecular genetics method Nominal [facility] HHN Treatment HHN Treatment Re spiratory Care Routine Every 6hr As Needed until discontinued starting 04/12/2019 [place] Comment on above: Every 6hr As Needed until discontinued starting 04/12/2019 Homogenous nuclear A b pattern [Titer] in Serum [facility] IgA [Mass/volume] in Serum or Plasma [facility] IgG [Mass/volume] in Serum or Plasma [facility] IgM [Mass/volume] in Serum or Plasma [facility] Initiate Oxygen Ther apy Protocol Initiate Oxygen Therapy Protocol Respiratory Care Routine Daily until discontinued starting 04/11/2019 [place] Comment on above: Daily until disconti nued starting 04/11/2019 Lipoprotein a [Moles/volume] in Serum or Plasma [facility] Microalbumin [Mass/volume] in Urine [facility] Mitochondria M2 IgG Ab [Units/volume] in Serum [facility] Nuclear Ab [Titer] i n Serum [facility] POCT glucose [place] Comment on above: 4X Daily (AC & HS) u ntil discontinued starting 04/13/2019 As Needed until disc ontinued starting 04/15/2019 Surgical Pathology Surgical Path ology Lab Routine ONE TIME for 1 Occurrences starting 04/17/2019 [place] Comment on above: ONE TIME for 1 Occur rences starting 04/17/2019 End: 04-17-2019 Surgical Pathology Surgical Pathology Lab Routine Once for 1 Occurrences starting 04/17/2019 until 04/17/2019 [place] Comment on above: Once for 1 Occurrenc es starting 04/17/2019 until 04/17/2019 [facility] Immunizations Immunization Date Immunization Notes Care Provider Edward miller 05-26-2023 influenza virus vaccine, unspecified formulation DO Rodolfo Ahmadi Work Phone: [facility] 05-26-2023 influenza, high dose seasonal, preservative-free Rodolfo Ahmadi Other [employer] Other 06-24-2021 COVID-19 Vaccine Moderna - Documentation Purposes Only Rodolfo Ahmadi Other [facility] 09-12-2020 COVID-19 Vaccine Moderna - Documentation Purposes Only Rodolfo Ahmadi Other [facility] 06-19-2020 influenza virus vaccine, split virus (incl. purified surface antigen) Imad Asaad Other [employer] [facility]ia[facility] Other 06-19-2020 influenza virus vaccine, unspecified formulation DO Rodolfo Ahmadi Work Phone: [facility] 04-13-2019 influenza, injectabl e, quadrivalent, preservative free [place], [place] 04-12-2019 influenza quadrivale nt split vaccine (FLUZONE;FLUARIX;FLULAV AL;AFLURIA) injection 0.5 mL [place] Payers Date Payer Category Payer Self-pay 2019 Unknown [employer] xxxxxxxxx 2019-Present [address] [place] [address] xxxxxxxxx [id number] 2019 Unknown [id number] 2018 Medicare MEDICARE MEDICAR E PART A AND B xxxxxxxxxxx 2018-Present [phone] [address] [address] [place] [address] xxxxxxxxxxx [id number] 2018 Medicare [id number] 1959 Unknown [id number] 1955 Unknown [id number] 1953 Unknown [id number] 1953 Unknown [id number] Unknown [id number] Unknown [id number] Unknown [id number] Unknown [id number] Unknown [id number] Social History Date Type Detail Facility Start: 04-18-2019 Tobacco smoking stat [facility] Former sm[place] End: 07-03-1991 History of tobacco use [place] End: 07-03-1991 History of tobacco use [place]ig[place] Start: 04-18-2019 Alcohol intake Yes [place], [place] Sex Assigned At Not on file [place] Start: 1955 Sex Assigned At Male F [facility] Start: 03-30-2023 End: 03-30-2023 Tobacco smoking status [facility] Never smoked tobacco (finding) [facility] Start: 05-17-2024 Sex Male (finding) [facility] Medical Equipment Procedure Code Equipment Code [...] Desired Activity /State Clinical Notes 07-15-2022 to 03-21-2024 Note Date & Type Note Facility 03-21-2024 Evaluation note Authored March 21, 2024 10:41am 68-year-old man with liver c irrhosis secondary to [...] with cirrhosis. No liver masses. AFP is 14.1-->9.3. CT on 09/20/2023 showed no liver lesion. Will arrange for ultrasound and AFP every 6 months Patient has splenomegaly and thrombocytopenia consistent with portal hypertension. EGD on 03/30/2023 showed no varices MELD is 8. Continue to monitor MELD labs He has immunity for hepatitis A. Needs hepatitis B vaccine. [facility] Work Phone: 1(814) 781-257309-19-2024 Evaluation note* Author Jojo [facility] Authored March 21, 2024 9:41am 68-year-old man with liver c irrhosis secondary to [...] with cirrhosis. No liver masses. AFP is 14.1-->9.3. CT on 09/20/2023 showed no liver lesion. Will arrange for ultrasound and AFP every 6 months Patient has splenomegaly and thrombocytopenia consistent with portal hypertension. EGD on 03/30/2023 showed no varices MELD is 8. Continue to monitor MELD labs He has immunity for hepatitis A. Needs hepatitis B vaccine. [facility] Work Phone: 1(329) 874-731803-21-2024 Evaluation note* Author Jojo Stearns [facility] Authored September 21, 2023 9:5 1am [...] for hepatitis A. Needs hepatitis B vaccine. [facility] Work Phone: 1(472) 744-379301-09-2024 Evaluation note* Encounter Date Diagnosis Assessment Notes [...] exercise to achieve/maintain a normal BMI. Jul, THOMASON (nonalcoholic steatohepatitis) (ICD-10 - K75.81) Low fat [...] the risk for cerebrovascular and cardiovascular disease. [employer] [facility] Other 11-24-2023 Evaluation note* Encounter Date Diagnosis [...] exercise to achieve/maintain a normal BMI. May, THOMASON (nonalcoholic steatohepatitis) (ICD-10 - K75.81) Low fat, high protein diet. Exercise and weight loss. Avoid NSAIDs, Tylenol and Alcohol. f/u GI May, Unspecified cirrhosi s of liver (ICD-10 - K74.60) Secondary to alcohol, THOMASON. May, Inflammatory polyarthritis (ICD-10 - M06.4) Check [...] the risk for cerebrovascular and cardiovascular disease. [employer] [facility] Other [facility]* Encounter Date Diagnosis Assessment [...] R16.1) Mar, Metabolic syndrome (ICD-10 - E88.81) [employer] [facility] Other 08-23-2023 Evaluation note* Encounter Date Diagnosis [...] Dilated eye exam and Foot exam Jan, THOMASON (nonalcoholic steatohepatitis) (ICD-10 - K75.81) Avoid Alcohol [...] diet Jan, External hemorrhoid (ICD-10 - K64.4) [employer] [facility] Other 07-31-2023 Evaluation note* Encounter Date Diagnosis Assessment Notes Treatment Notes Treatment Clinical Notes Dec, THOMASON (nonalcoholic steatohepatitis) (ICD-10 - K75.81) Dec, Elevated liver enzymes (ICD-10 - R74.8) [employer] [facility] Other 07-26-2023 Evaluation note* Encounter Date Diagnosis Assessment Notes Treatment Notes Treatment Clinical Notes Dec, Nonalcoholic steatohepatitis (THOMASON) (ICD-10 - K75.81) Dec, Elevated liver enzym es (ICD-10 - R74.8) Return visit when these are completed. [facility] Other 06-02-2023 Evaluation note* Encounter Date Diagnosis [...] cost - consider [employer] Dec, Nonalcoholic steatohepatitis (THOMASON) (ICD-10 - K75.81) Healthy, low fat, high [...] [BMI ] 36.0-36.9, adult (ICD-10 - Z68.36) [facility] Other 05-05-2023 Evaluation note* Encounter Date Diagnosis [...] Screening for colon cancer (ICD-10 - Z12.11) [facility] Other 02-28-2023 Evaluation note* Encounter Date Diagnosis Assessment Notes Treatment Notes Treatment Clinical Notes Aug, Controlled type 2 diabetes mellitus with hyperglycemia, without long-term current use of insulin (ICD-10 - E11.65) [facility] Other 01-13-2023 Evaluation note* Encounter Date Diagnosis [...] exercise to achieve/maintain a normal BMI. Jul, Type 2 diabetes mellitus with hyperglycemia, [...] which are reviewed at the office visit. [employer] [facility] Other Evaluation noteNo [employer]Nort [employer] Other Evaluation noteNo assessment information available [facility] Work Phone: Evaluation note* Diagnosis Onset Date Resolution Status Chronic venous insufficiency acute Cirrhosis of liver without ascites acute Controlled diabetes mellitus with hyperglycemia acute Essential hypertension acute Primary osteoarthritis of knees, bilateral acute [facility] Work Phone: Evaluation note* Author Jojo Stearns [facility] Authored September 21, 2023 9:5 1am [...] for hepatitis A. Needs hepatitis B vaccine. [facility] Work Phone: Evaluation note* Diagnosis Onset Date Resolution Status Chronic venous insufficiency acute Cirrhosis of liver without ascites acute Essential hypertension acute Hypertension acute Metabolic dysfunction-associ ated steatohepatitis (MASH) acute Primary osteoarthritis of knees, bilateral acute Thrombocytopenia acute Type 2 diabetes mellitus with hyperglycemia acute Medicare annual wellness visit, subsequent noneactive Screening PSA (prostate specific antigen) noneactive [facility] Work Phone: Evaluation note* Author Jojo Stearns [facility] Authored March 21, 2024 10:41am 68-year-old man with liver c irrhosis secondary to [...] with cirrhosis. No liver masses. AFP is 14.1-->9.3. CT on 09/20/2023 showed no liver lesion. Will arrange for ultrasound and AFP every 6 months Patient has splenomegaly and thrombocytopenia consistent with portal hypertension. EGD on 03/30/2023 showed no varices MELD is 8. Continue to monitor MELD labs He has immunity for hepatitis A. Needs hepatitis B vaccine. [facility] Work Phone: [employer] general Narrative - Reported* Type Description Date [...] arthroscopy 04/29/22 Hospitalization History see surgical history [facility] Other [facility] general Narrative - Reported* Type Description Date [...] 02/19 23` Hospitalization History see surgical history [facility] Other [facility] general Narrative - Reported* Type Description Date [...] years 01/2023` Hospitalization History see surgical history [facility] Other History general Narrative - Reported* Type [...] EGD 03/2023 Hospitalization History see surgical history [facility] Other Hospital Discharge instructions Additional Instructions DISCHARGE [...] if you have any problems. -[facility] number [phone] Work [facility]: Reason for referral (narrative)* Reason Referral for colonos copy Diagnosis 1 Rectal bleeding (K62 .5) Diagnosis 2 External hemorrhoid (K64.4) Diagnosis 3 Screening for colon cancer (Z12.11) Referral Organization [facility] Janeen ambrose Referring Provider First Name Rodolfo Referring Provider Last Name Galdino Referring Provider Specialty Internal Me dicine Referred Organization [facility] Referred Provider Yordan Shaffer Referred Address [address] [place] [phone] Referred Provider Specialty Surgery Referral Priority Routine [...] to be done prior to his referral. [facility] Other Reason for referral (narrative)* Reason Referral for evaluat ion of diffuse arthralgias and myalgias Diagnosis 1 Inflammatory polyart hritis (M06.4) Diagnosis 2 Primary osteoarthrit is of both knees (M17.0) Diagnosis 3 Primary osteoarthrit is of both first carpometacarpal joints (M18.0) Referral Organization [facility] Galdino ambrose Referring Provider First Name Rodolfo Referring Provider Last Name Galdino Referring Provider Specialty Internal Me dicine Referred Organization [facility] Referred Address [address] [place],[address] Referred Provider Specialty Rheumatology Referral Priority Routine [...] and RA. Clinical Notes Include recent labs [facility] Other Discharge Instructions * Discharge Instr - [...] heart healthy diet * Additional Instructions* Anmol Khun Jr., DO - 04/17/2019 Patient Discharge Instructions [...] Care Everywhere. * Blood Pressure Test: Home ([place]ozambican) * Cholecystectomy: Post-op ([place]ozambican) * Diet: DASH ([place]ozambican) * Gallbladder Disease: Low-Fat Diet ([place]ozambican) * Gallstones ([place]ozambican) * Pancreatitis: Acute: General Info ([place]ozambican) * pantoprazole (oral/injection) ([place]ozamb[place]) documented in this encounter History of Present Illness * Leslie Nichole, RN - 04/18/2019 2:13 PM EDT Discharge order received. IV removed. Security Controls Assessor went over d/c instructions with pt, including medications and follow up appointments. Pt sent home with and instructed to continue using hibiclens. Pt verbalized understanding. Pt was d/c with all documented belongings. * Ana White - 04/18/2019 1:56 PM EDT CLINICAL PHARMACY NOTE: MEDS TO [facility] Select Patient?: No Total # of Prescriptions Filled: 1 The following medications were delivered to the patient: Percocet 5-325mg Total # of Interventions Completed: 0 Time Spent (min): 5 Additional Documentation: meds delivered to patients at 1:51pm. Patient was in the shower. * Vargas Dodson DO - 04/18/2019 10:49 AM EDT [facility] IN-PATIENT SERVICE [facility] Progress Note 04/18/2019 10:49 AM Name: Paty Cardona Acct: [id number] Room: [address] [place] [address] Day: 7 Admit Date: 04/11/2019 4:05 PM PCP: Rodolfo Ahmadi DO Code Status: Full Code Subjective: C/C: unrelenting abdominal pain/epigastric pain Interval History Status: improved. Pt seen and examined this afternoon. He is postop day #1 from robotic lap nora with general surgery today. 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 However, the abdominal pain did not cease [...] expected pneumobilia. POD #1 from robotic lap nora. Tolerated diet overnight. Feeling well on day [...] F (37.6 C) Recent Labs 04/17/19 1152 04/17/19 1702 04/17/19211904/18/19718 POCGLU 166* 227* 225* 165* I/O (24Hr): Intake/Output Summary (Last 24 hours) at 04/18/2019 1049 Last data filed at 04/18/2019 0625 Gross per 24 hour Intake 03301.42 ml Output 900 ml Net 77353.42 ml Labs: Hematology: Recent Labs 04/16/1953004/17/1952604/18/19517 WBC 9.5 -- 10.2 RBC 4.50 -- [...] 04/16/19 0531 04/17/19 0754 04/17/19 0959 04/17/19 1152 04/17/19 17004/17/19211904/18/1951704/18/19718 PROT 6.2* -- -- -- -- -- [...] results found for: POCPH, PHART, PH, POCPCO2, JFZ8OQQ, PCO2, POCPO2, PO2ART, PO2, POCHCO3, LQA3PEO, HCO3, NBEA, PBEA, BEART, BE, THGBART, THB, BLO9WTZ, ZBDQ4VUP, G8ZWZNDM, O2SAT, FIO2 No results found for: SPECIAL [...] recs 2. POD #1 from robotic lap nora 3. HL IVF 4. Stop supplemental O2 [...] 04/18/2019 0625 Gross per 24 hour Intake 23913.42 ml Output 1870 ml Net 99206.42 ml PHYSICAL EXAM Constitutional: Vital signs are [...] 04/16/2019 ASSESSMENT 1. POD 1 s/p robotic nora 2. Gallstone pancreatitis-resolved Plan 1. Ok from [...] Dodson DO - 04/17/2019 6:38 PM EDT [facility] IN-PATIENT SERVICE [facility] Progress Note 04/17/2019 6:39 PM Name: Paty Cardona Acct: [id number] Room: [facility]/0441-01 Day: 6 Admit Date: 04/11/2019 4:05 PM PCP: Rodolfo Ahmadi DO Code Status: Full Code Subjective: C/C: unrelenting abdominal pain/epigastric pain Interval History Status: improved. Pt seen and examined this afternoon. He is postop day #0 from robotic lap nora with general surgery today. 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 However, the abdominal pain did not cease [...] expected pneumobilia. POD #0 from robotic lap nora. Trial diet tonight. Of note, patient is [...] [MAR Hold] indocyanine green 5 mg Intravenous Printed Circuit Boards Contact Printer to OR enoxaparin 30 mg Subcutaneous BID [...] Net -1655 ml Labs: Hematology: Recent Labs 04/15/1953 04/16/1953004/17/19 05 WBC 10.0 9.5 -- RBC 4.39 4.50 [...] results found for: POCPH, PHART, PH, POCPCO2, QWJ5ZBE, PCO2, POCPO2, PO2ART, PO2, POCHCO3, LGR5AMN, HCO3, NBEA, PBEA, BEART, BE, THGBART, THB, KBZ2VHE, YKNN3ECA, Y5WYUCIY, O2SAT, FIO2 No results found for: SPECIAL [...] recs 2. POD #0 from robotic lap nora 3. Continue LR 4. Trial diet tonight [...] that family is on the way from [place]. 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 However, the abdominal pain did not cease [...] [START ON 04/17/2019] ceFAZolin 2 g Intravenous [employer]ed [employer] Boards Contact Printer to OR [START ON 04/17/2019] indocyanine green 5 mg Intravenous [employer] Boards Contact Printer to OR [START ON 04/17/2019] enoxaparin 30 [...] C), Max:98.9 F (37.2 C) Recent Labs 04/15/19205204/16/19 0735 04/16/19 1140 04/16/19 1624 POCGLU 123* 102 167* 109 I/O (24Hr): Intake/Output Summary (Last 24 hours) at 04/16/20191955 Last data filed at 04/16/2019 1733 Gross per 24 hour Intake 2100 ml Output 2900 ml Net -800 ml Labs: Hematology: Recent Labs 04/14/19 0608 04/15/19 0551 04/16/19 0531 WBC 8.1 10.0 9.5 RBC 4.20* 4.39 4.50 HGB 13.1 13.7 14.1 HCT 41.0 41.9 42.9 MCV 97.6 95.4 95.3 MCH 31.2 31.2 31.3 MCHC 32.0 32.7 32.9 RDW 12.7 12.4 12.6 PLT See Reflexed IPF Result See Reflexed IPF Result See Reflexed IPF Result MPV NOT REPORTED NOT REPORTED NOT REPORTED Chemistry: Recent Labs 04/14/1960704/15/19 0551 04/16/19530 NA -- 131* 136 K -- 3.9 3.9 CL -- 99 101 CO2 -- 22 22 GLUCOSE -- 128* 118* BUN -- 9 10 CREATININE -- 0.48* 0.54* MG -- -- 2.2 ANIONGAP -- 10 13 LABGLOM -- >60 >60 GFRAA -- >60 >60 CALCIUM -- 8.0* 8.4* CAION 1.02* 1.03* -- PHOS -- 3.0 3.0 Recent Labs 04/14/19 0604/15/19 0551 04/15/19 0821 04/15/19 1653 04/15/19 2053 [...] results found for: POCPH, PHART, PH, POCPCO2, JSI5DVM, PCO2, POCPO2, PO2ART, PO2, POCHCO3, ESI5XXL, HCO3, NBEA, PBEA, BEART, BE, THGBART, THB, WXF7VZF, SXWK7SUX, S5OMCLLN, O2SAT, FIO2 No results found for: SPECIAL [...] DO 04/16/2019 7:56 PM * Rosario Foy, KATHRINE, LD - 04/16/2019 12:36 PM EDT Nutrition Assessment Type and Reason for Visit: Initial Nutrition Recommendations: Will add Ensure Clear supplements to Clear Liquid diet Nutrition Assessment: Chart reviewed due to 5 days npo/liquid diet. Plan is for cholecystectomy tomorrow. Pt has been instructed on DM diet by Credit Verification Clerk- note reviewed- however upon discussion with pt [...] 5. Fluid Accumulation-Mild fluid accumulation, Generalized 6. Postal Superintendent Strength-Not measured Nutrition Risk Level: Moderate Nutrient [...] Current Body Wt: 240 lb (108.9 kg) [place] Body Wt: 160 lb (72.6 kg), % [place] Body 150% BMI Classification: BMI 35.0 - [...] amylase and lipase today. 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 However, the abdominal pain did not cease [...] C) Recent Labs 04/14/19 1217 04/14/19 1611 04/14/19 2048 04/15/19 0821 POCGLU 122* 108 126* 112* I/O (24Hr): Intake/Output Summary (Last 24 hours) at 04/15/2019 1309 Last data filed at 04/15/2019 1217 Gross per 24 hour Intake 5067 ml Output 4300 ml Net 767 ml Labs: Hematology: Recent Labs 10/60704/15/19550 WBC 8.1 10.0 RBC 4.20* 4.39 HGB 13.1 13.7 HCT 41.0 41.9 MCV 97.6 95.4 MCH 31.2 31.2 MCHC 32.0 32.7 RDW 12.7 12.4 PLT See Reflexed IPF Result See Reflexed IPF Result MPV NOT REPORTED NOT REPORTED Chemistry: Recent Labs 04/13/1963804/14/1960704/15/19550 NA -- -- 131* K -- -- 3.9 CL -- -- 99 CO2 -- -- 22 GLUCOSE -- -- 128* BUN -- -- 9 CREATININE -- -- 0.48* ANIONGAP -- -- 10 LABGLOM -- -- >60 GFRAA -- -- >60 CALCIUM -- -- 8.0* CAION 1.00* 1.02* 1.03* PHOS -- -- 3.0 Recent Labs 04/12/19 1637 04/13/1963804/13/19 16204/13/19200404/14/1960704/14/19 1217 04/14/19 1611 04/14/19204704/15/1953 04/15/1921 PROT -- -- 5.7* -- -- -- [...] results found for: POCPH, PHART, PH, POCPCO2, GHT6CNM, PCO2, POCPO2, PO2ART, PO2, POCHCO3, MAS2XXV, HCO3, NBEA, PBEA, BEART, BE, THGBART, THB, ANH3VWT, HJJW9FOK, C4CNARFB, O2SAT, FIO2 No results found for: SPECIAL [...] grow new cartilage. This was done in [place]. Then all this developed so concerned about [...] 3 meals and snacks and meeting with pulmonary physical therapist to help develop a plan. Main beverage [...] Type 2 Diabetes _x__ Be safe with [place] teaching sheet / [place] EPA Disposal of Household Generated Sharps _x__ Type 2 Diabetes and Adding Insulin fold out with survival skills _x__ [facility] Diabetes Education brochure/ contact card Patient needs reinforcement. understanding of survival skills education. Patient was very receptiveand willing to make changes in eating habits. 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 _x__ Preferred / [...] HCP follow -up : Follow up in [place] area __ Would recommend follow -up education at outpatient diabetes education at [facility]. An ordered is needed for this service [...] rashes or lesions. Data: CBC: Recent Labs 04/14/1960704/15/19 0551 WBC 8.1 10.0 HGB 13.1 13.7 PLT See Reflexed IPF Result See Reflexed IPF Result Chemistry: Recent Labs 04/13/1963804/14/1960704/15/19 0551 NA -- -- 131* K -- -- [...] 1.17 BILIDIR 0.33* 0.40* Coagulation: Recent Labs 04/13/1904/15/19 0551 PROT 5.7* 5.7* Radiology Review: ASSESSMENT: [...] labs-if continues to normalize, can look at nora in 48-72 hours * Leslie Nichole, TIMMY - 04/14/2019 4:17 PM EDT Pt c/o feeling congested in chest. Security Controls Assessor gave and instructed of on use of incentive spirometer. Ptdid return demonstration and reached >2000. * Joseph Contreras DO - 04/14/2019 3:47 PM EDT [facility] IN-PATIENT SERVICE [facility] Progress Note 04/14/2019 3:55 PM Name: Paty Cardona Acct: [id number] Room: [facility]044- IP Day: 3 Admit Date: 04/11/2019 4:05 PM PCP: Rodolfo Ahmadi, Code Status: Full Code Subjective: C/C: Pain [...] C) Recent Labs 04/13/19 0922 04/13/19 1622 04/13/19 2005 04/14/19 1217 POCGLU 174* 132* 154* 122* I/O [...] results found for: POCPH, PHART, PH, POCPCO2, CCW2CSO, PCO2, POCPO2, PO2ART, PO2, POCHCO3, YDZ2PCJ, HCO3, NBEA, PBEA, BEART, BE, THGBART, THB, MFM3PZO, VATR4NNP, Y2GYNJXS, O2SAT, FIO2 Radiology: Mri Abdomen W Wo [...] INTAKE/OUTPUT: Intake/Output Summary (Last 24 hours) at 04/14/201945 Last data filed at 04/14/2019 0555 Gross per 24 hour Intake 5846 ml [...] See Reflexed IPF Result Chemistry: Recent Labs 04/11/19181604/12/1952604/13/1963804/14/19 0608 NA 141 138 -- -- K [...] -- 2.9 -- -- Hepatic: Recent Labs 04/11/19181604/12/1952604/13/19 0639 AST [...] need 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 Increase in abd pain and change [...] at this time, will defer OT eval. WARNER in agreement * Joseph Contreras DO - 04/13/2019 2:30 PM EDT [facility] IN-PATIENT SERVICE [facility] Progress Note 04/13/2019 2:30 PM Name: Paty Cardona Acct: [id number] Room: 0441/0441-01 IP Day: 2 Admit Date: 04/11/2019 4:05 PM PCP: Rodolfo Ahmadi, DO Code Status: Full Code Subjective: C/C: [...] management of: Gallstone pancreatitis Patient admitted from [facility] ER with Patient c/o increasing abdominal pain [...] C), Max:99.4 F (37.4 C) Recent Labs 04/12/19203404/12/19 2324 04/13/19 0332 04/13/19 0922 POCGLU 262* 229* [...] 1.00* PHOS -- 2.9 -- Recent Labs 04/11/19181604/12/1952604/13/19638 PROT 7.0 6.0* 5.7* LABALBU 4.0 3.2* 2.9* AST 250* 113* 36 ALT 284* 192* 103* ALKPHOS 64 49 41 BILITOT 1.34* 1.33* 0.87 BILIDIR -- -- 0.33* AMYLASE -- 436* -- LIPASE 1,552* 875* 288* TRIG -- 95 -- No results found for: SPECIAL No results found for: POCPH, PHART, PH, POCPCO2, FVO2MMI, PCO2, POCPO2, PO2ART, PO2, POCHCO3, BLY8QVT, HCO3, NBEA, PBEA, BEART, BE, THGBART, THB, BTG0INV, RVHS2KYN, D6RFRNST, O2SAT, FIO2 Radiology: Mri Abdomen W Wo [...] DO 04/13/2019 2:30 PM * Nathaniel Eubanks, VEHICLE RETURN ASSOCIATE - MANAGER BANK - 04/13/2019 12:03 PM EDT [facility] Progress Note Paty Cardona is a [...] No results for input(s): LABIRON, TIBC, FERRITIN, RIJANLHG67, FOLATE, OCCULTBLD in the last 72 hours. [...] me with any questions or concerns. Nathaniel Eubanks, ZANDRA - [facility] [phone] Associated attestation - Rachel Rivers MD - 04/13/2019 8:35 PM EDT GI Attending Attestation I have discussed the care of Paty Grahamierrez and I have examined the patient myself [...] signed by Rachel Rivers MD * Lori Whitfield PT - 04/13/2019 10:51 AM EDT Physical [...] hours) at 04/13/2019918 Last data filed at 04/13/201918 Gross per 24 hour Intake 3570 ml [...] Reflexed IPF Result Chemistry: Recent Labs 04/11/19181604/12/1952604/13/1939 NA 141 138 -- K 4.4 4.2 -- CL 103 103 -- CO2 20 21 -- GLUCOSE 173* 159* -- BUN 11 15 -- CREATININE 0.50* 0.56* -- MG -- 1.7 -- ANIONGAP 18* 14 -- LABGLOM >60 >60 -- GFRAA >60 >60 -- CALCIUM 8.5* 7.6* -- CAION -- 1.01* 1.00* PHOS -- 2.9 -- Hepatic: Recent Labs 04/11/19181604/12/1952604/13/1939 AST 250* 113* 36 ALT 284* 192* 103* ALKPHOS 64 49 41 BILITOT 1.34* 1.33* 0.87 BILIDIR -- -- 0.33* Coagulation: Recent Labs 04/11/19181604/12/1952604/13/1939 PROT 7.0 6.0* 5.7* INR -- 1.2 [...] Other: Endoscopy Next Scheduled Treatment: 04/13/2019 * BenJoseph Alejandro, DO - 04/12/2019 2:28 PM EDT [facility] IN-PATIENT SERVICE [facility] Progress Note 04/12/2019 2:42 PM Name: Paty Cardona Acct: [id number] Room: [address] [place] [address] IP Day: 1 Admit Date: 04/11/2019 4:05 [...] IPF Result INR 1.2 Chemistry: Recent Labs 04/11/19181604/12/19526 NA 141 138 K 4.4 4.2 CL 103 103 CO2 20 21 GLUCOSE 173* 159* BUN 11 15 CREATININE 0.50* 0.56* MG -- 1.7 CALCIUM 8.5* 7.6* CAION -- 1.01* PHOS -- 2.9 Recent Labs 04/11/19181604/12/19526 PROT 7.0 6.0* LABALBU 4.0 3.2* AST 250* 113* ALT 284* 192* ALKPHOS 64 49 BILITOT 1.34* 1.33* AMYLASE -- 436* LIPASE 1,552* 875* TRIG -- 95 No results found for: SPECIAL No results found for: POCPH, PHART, PH, POCPCO2, CDN4CWI, PCO2, POCPO2, PO2ART, PO2, POCHCO3, AUY8FLS, HCO3, NBEA, PBEA, BEART, BE, THGBART, THB, PMO3RXT, DVMO9ZXA, C4RIFCFP, O2SAT, FIO2 Radiology: Mri Abdomen W Wo [...] today. Will follow up as able. HEYDI TREVINO 11:27 AM * Lyn Awad, PT - [...] to palliative care. No further needs. LYN AWAD, PT * Leslie Nichole, RN - 04/11/2019 7:04 PM EDT Home meds verified with [facility] * Leslie Nichole RN - 04/11/2019 6:45 PM EDT Pt to MRI via stretcher. * Leslie Nichole RN - 04/11/2019 4:10 PM EDT Pt arrived via EMS on stretcher as direct admit from [facility] in [place]. Pt responds to voice. Vitals stable. Will [...] Documents on File Type Date Recorded Patient Ostomy Nurse Expl anation Advance Directives and Living Will Power of Net Developer Consultant Latest Code Status on File Code Status [...] visit, subsequent Screening PSA (prostate specific antigen) Chief Complaint 4 Month Check Up k74.60 Reason for Visit Chronic venous insuf ficiency Cirrhosis of liver without ascites Essential hypertension Hypertension Metabolic dysfunction-associated steatohepatitis (MASH) Primary osteoarthritis of knees, bilateral Thrombocytopenia Type 2 diabetes mellitus with hyperglycemia Medicare annual wellness visit, subsequent Screening PSA (prostate specific antigen) Chief Complaint 4 Month Check Up k74.60 6 month follow up Reason for Visit Chronic venous insuf ficiency Cirrhosis of liver without ascites Essential hypertension Hypertension Metabolic dysfunction-associated steatohepatitis (MASH) Primary osteoarthritis of knees, bilateral Thrombocytopenia Type 2 diabetes mellitus with hyperglycemia Medicare annual wellness visit, subsequent Screening PSA (prostate specific antigen) Liver cirrhosis Portal hypertension Splenomegaly Thrombocytopenia Chief Complaint 4 Month Check Up k74.60 6 month follow up R19.7 Reason for Visit Chronic venous insuf ficiency Cirrhosis of liver without ascites Essential hypertension Hypertension Metabolic dysfunction-associated steatohepatitis (MASH) Primary osteoarthritis of knees, bilateral Thrombocytopenia Type 2 diabetes mellitus with hyperglycemia Medicare annual wellness visit, subsequent Screening PSA (prostate specific antigen) Liver cirrhosis Portal hypertension Splenomegaly Thrombocytopenia Chief Complaint Admit Date k74.60 March 18, 2024 8:58am 6 month follow up March 21, 2024 9:56am R19.7 March 26, 2024 10:00am CC Adult Risk Stratification May 11:06am CC Adult Risk Stratification May 11:08am 4 month f/u May 17, 2024 11:37am Reason for Visit Admit Date Liver cirrhosis March 21, 2024 9:56am Portal hypertension March 21, 2024 9:56am Splenomegaly March 21, 2024 9:56am Thrombocytopenia March 21, 2024 9:56am Chronic venous insufficiency May 172023 11:37am Cirrhosis of liver without ascites Novem 2023 11:37am Essential hypertension May 17 11:37am Metabolic dysfunction-associated steatoh epatitis (MASH) May 17, 2024 11:37am Primary osteoarthritis of knees, bilater al May 17, 2024 11:37am Thrombocytopenia May 17, 2024 11:37am Type 2 diabetes mellitus with hyperglyce jasmina May 17, 2024 11:37am Reason for Referral Reason Mr. Cardona is jovana ng referred with primary arthritis involving B/L CMC joint of the thumb and B/L knees. Diagnosis 1 Primary osteoarthrit is of both knees (M17.0) Diagnosis 2 Primary osteoarthrit is of both first carpometacarpal joints (M18.0) Referral Organization [facility] Referring Provider First Name Rodolfo Referring Provider Last Name Galdino Referring Provider Specialty Internal Me dicine Referred Organization [facility] Referred Provider Dakota Levy Referred Address [address] [place] [phone] Referred Provider Specialty Orthopaedic Surgery Referral Priority [...] type gallstone stones/ pancreatitis Joseph Contreras DO [facility] [facility] [place] [address] [facility] (unrecognized sect ion and content) No Status Records FoundNo Status Records FoundNo Status Records Found INFORMATION SOURCE (unrecogn ized section and content) DATE CREATED AUTHOR 04/19/2019 [facility] DATE CREATED AUTHOR AUTHOR'S ORGANIZ ATION 05/13/2022 [facility] DATE CREATED AUTHOR AUTHOR'S ORGANIZ ATION 03/29/2024 [facility] Care Teams (unrecognized sec tion and content) Team Status: Active Member Role Status Dates Rodolfo Ahmadi DO Primary Care Provider Active Team Status: Inactive Member Role Status Dates Rodolfo Ahmadi DO Primary Care Provider Active Jojo Stearns MD Attending Provider Active Team Status: Inactive Member Role Status Dates Jojo Stearns MD Attending Provider Active Rodolfo Ahmadi DO Primary Care Provider Active Team Status: Inactive Member Role Status Dates Rodolfo Ahmadi DO Primary Care Provider Active Osmar [...] 2023 Team Status: Active Member Role Status Garrett [...] Role Status Garrett Ahmadi DO Primary Care Provide r, Attending Provider Active Start: January 05, 2024 End: January 05, 2024 Team Status: Inactive Member Role Status Garrett Ahmadi DO Primary Care Provider Active Start: March 18, 2024 End: March 18, 2024 Jojo Stearns MD Attending Provider Active Start: March 18, 2024 End: March 18, 2024 Team Status: Inactive Member Role Status Garrett Ahmadi DO Primary Care Provider Active Start: March 21, 2024 End: March 21, 2024 Jojo Stearns MD Attending Provider Active Start: March 21, 2024 End: March 21, 2024 Team Status: Inactive Member Role Status Garrett Ahmadi DO Primary Care Provider Active Start: March 26, 2024 End: March 27, 2024 Jojo Stearns MD Attending Provider Active Start: March 26, 2024 End: March 27, 2024 Team Status: Active Member Role Status Garrett Ahmadi DO Primary Care Provide r, Attending Provider Active Start: May 09, 2024 Team Status: Inactive Member Role Status Garrett Ahmadi DO Primary Care Provide r, Attending Provider Active Start: May 17, 2024 End: May 17, 2024 Goals (unrecognized section and content) Goals [...] BE BASED ON THE PRIMARY CLINICAL RECORDS. [facility] [employer] [facility]. provides no warranty or guarantee of the accuracy or completeness of information in this document.
[2024-08-20 11:54] LABS: Erythrocyte Sedimentation Rate 17 mm/hr (<=20)
[2024-08-20 11:55] LABS: Alanine Aminotransferase 32 U/L (16-63); Albumin Globulin Ratio 1.1; Albumin Level 3.7 g/dL (3.4-5.0); Alkaline Phosphatase 82 U/L (46-116); Anion Gap 9.1; Aspartate Amino Transferase 21 U/L (15-37); BUN Creatinine Ratio 16.3; Bilirubin Total 0.6 mg/dL (0.2-1.0); C Reactive Protein <0.50 mg/dL (<=0.50); Calcium 8.6 mg/dL (8.5-10.1); Carbon Dioxide 28.4 mmol/L (21.0-32.0); Chloride 108 mmol/L (98-107); Estimated GFR (African America >60 (>=60 mL/min/1.73m^2); Estimated GFR (Non-African Ame >60 (>=60 mL/min/1.73m^2); Globulin 3.5 g/dL; Glucose 105 mg/dL (74-106); Potassium 4.5 mmol/L (3.5-5.1); Sodium 141 mmol/L (136-145); Total Protein 7.2 g/dL (6.4-8.2)
[2024-08-20 12:00] LABS: Basophils Percent Auto 0.6 % (0.2-2.0); Eosinophils Absolute Auto 0.2 10^3/uL (0.0-0.7); Eosinophils Percent Auto 3.2 % (0.9-7.0); Hematocrit 45.9 % (42.0-54.0); Hemoglobin 15.9 g/dL (14.0-18.0); Immature Granulocytes Abs Auto 0.03 10^3/uL (0.00-0.03); Immature Granulocytes Pct Auto 0.6 % (0.0-0.5); Lymphocytes Absolute Auto 1.1 10^3/uL (1.2-3.8); Lymphocytes Percent Auto 21.2 % (20.5-60.0); Mean Corpuscular HGB Conc 34.6 g/dL (29.9-35.2); Mean Corpuscular Hemoglobin 31.2 pg (25.9-34.0); Mean Corpuscular Volume 90.2 fL (80.0-94.0); Mean Platelet Volume 10.2 fL (9.5-13.5); Monocytes Absolute Auto 0.6 10^3/uL (0.3-0.8); Monocytes Percent Auto 10.4 % (1.7-12.0); Neutrophils Absolute Auto 3.4 10^3/uL (1.4-6.5); Platelet Count 103 10^3/uL (150-450); Red Blood Count 5.09 10^6/uL (4.70-6.10); Red Cell Distribution Width 12.7 % (11.0-15.0); White Blood Count 5.3 10^3/uL (4.0-11.0)
== END 2024-08-20 10:53 | disposition home or self-care (01) ==
LOC: LAB 10:54
PROVIDERS: PCP Internal Medicine; Visit Provider Internal Medicine Rheumatology
DX: M13.0 Polyarthritis, unspecified (principal); M15.0 Primary generalized (osteo)arthritis; Z79.899 Other long term (current) drug therapy
CPT/HCPCS: 36415; 80053; 85025; 85652; 86140

== ENCOUNTER 2024-08-20 10:58 | Outpatient (OUT) | payer MEDICARE, SELFPAY ==
--- OUTSIDE RECORDS SUMMARY | 2024-08-20 11:19 | XMS_ITS | CCD ---
Author Organization [facility] CliniSyny Care Team Providers Care Nursing Home Administrator Name Role Phone Rodolfo Ahmadi Primary Care Provider [phone] GEMA MCKEON Referring Unavailable LEONELA FENTON Consulting [...] Care Provider MD Jojo Stearns Attending Provider Asaad, Imad Unavailable MD Osmar Mathis Attending Provider DO Rodolfo Ahmadi Primary Care Provider MD Cory Zeng Attending Provider [phone] DO Rodolfo Ahmadi Primary Care Provider MD [...] Care Provider Jojo Stearns MD Attending Provider [phone] Allergies Allergy Classification Reported Allergen(s) Allergy Type Date of Onset Reaction(s) Facility (3 sources) patient allergy list reviewed by nurse or physicia Propensity to adverse reactions Comment:Done [email or web address] Other Medications Current Medications Medication Drug Class(es) [...] tartrate 1 mg/ml injection (1 source) beta-Adrenergic [place] Start: 04-11-2019 metoprolol (LOPRESSOR) injection 5 mg [...] Drug Class(es) Dates Sig (Normalized) Sig (Original) [id number] 200 actuat albuterol 0.09 mg/actuat metered dose [...] Start: 09-21-2023 End: 01-05-2024 meloxicam Discontinued PO [facility] 2023 12:00am January 05, 2024 3:08pm Start: [...] site] Chronic Other aftercare (1 source) Other senior care (current) drug therapy Episodic Other and unspecified [...] tuf gene MARIBEL+probe Ql (Stl) Negative Negative [facility] Comment on above: Campylobacter test i ncludes C. jejuni and C. coli. C. coli+jejuni tuf gene MARIBEL+probe Ql (Stl) Campy coli+jejuni BD Max Negative [facility] Comment on above: Campylobacter test i ncludes C. jejuni and C. coli. Cryptosporidium parv+homin B D MaxOrdered By: Jojo Stearns on 03-26-2024 C. parvum+hominis DNA MARIBEL+probe Ql (Stl) Negative Negative [facility] Comment on above: Cryptosporidium test includes C. hominis and C. parvum. C. parvum+hominis DNA MARIBEL+probe Ql (Stl) Cryptosporidium parv+homin BD Max Negative [facility] Comment on above: Cryptosporidium test includes C. hominis and C. parvum. Entamoeba histolytica BD Max Ordered By: Jojo Stearns on 03-26-2024 E. histolytica DNA MARIBEL+probe Ql (Stl) Negative Negative [facility] Comment on above: Testing performed by RT-PCR E. histolytica DNA MARIBEL+probe Ql (Stl) Entamoeba histolytica BD Max Negative [facility] Comment on above: Testing performed by RT-PCR Escherichia coli Stx1 and St x2 toxin stx1+stx2 genes [Presence] in Stool by MARIBEL withOrdered By: Imad Asaad on 03-26-2024 E. coli stx1+stx2 genes MARIBEL+probe Ql (Stl) Negative Negative [facility] Giardia ricardo BD MaxOrdered By : Imad Asaad on 03-26-2024 G. lamblia DNA MARIBEL+probe Ql (Stl) Negative Negative [facility] G. lamblia DNA MARIBEL+probe Ql (Stl) Giardia ricardo BD Max Negative [facility] Ova and Parasite Panelon Cryptosporidium (C.hominis+par Negative Normal Negative [facility] Comment on above: Result Comment: Cryp tosporidium test includes C. hominis and C. parvum. Performed By: #### O REPAIRER GENERAL, ENT BACT PANEL #### [address] Entamoeba histolytica Negative Normal Negative [facility] Comment on above: Result Comment: Test ing performed by RT-PCR PERFORMED BY: [place] [address] PATHOLOGIST [employer] SUPERINTENDENT ANG KERR M.D. Performed By: #### O REPAIRER GENERAL, ENT BACT PANEL #### [address] Giardia lamblia Negative Normal Negative [facility] Comment on above: Performed By: #### O REPAIRER GENERAL, ENT BACT PANEL #### [place] [address] [place] Salmonella sp spaO gene [Pre sence] in Stool by MARIBEL with probe detectionOrdered By: Imad Asaad on 03-26-2024 Salmonella sp spaO gene MARIBEL+probe Ql (Stl) Negative Negative [facility] Comment on above: Testing performed by RT-PCR Salmonellosis BD MaxOrdered By: Imad Asaad on 03-26-2024 Salmonella sp spaO gene MARIBEL+probe Ql (Stl) Salmonella sp spaO gene [Presence] in Stool by MARIBEL with probe detection Negative [facility] Comment on above: Testing performed by RT-PCR Shigella Tox 1+2 BD MaxOrder ed By: Imalexander Asaad on 03-26-2024 E. coli stx1+stx2 genes MARIBEL+probe Ql (Stl) Escherichia coli Stx1 and Stx2 toxin stx1+stx2 genes [Presence] in Stool by MARIBEL with Negative [facility] Shigella species+EIEC invasi on plasmid antigen H ipaH gene [Presence] in Stool by NAAOrdered By: Imad Asaad on 03-26-2024 Shigella species+EIEC invasion plasmid antigen H ipaH gene MARIBEL+probe Ql (Stl) Negative Negative [facility] Comment on above: Shigella sp. test in cludes Shigella species and Enteroinvasive E. coli (EIEC). Shigellosis BD MaxOrdered By : Imad Asaad on 03-26-2024 Shigella species+EIEC invasion plasmid antigen H ipaH gene MARIBEL+probe Ql (Stl) Shigella species+EIEC invasion plasmid antigen H ipaH gene [Presence] in Stool by MARIBEL Negative [facility] Comment on above: Shigella sp. test in cludes Shigella species and Enteroinvasive E. coli (EIEC). Stool Bacterial Panelon 03-04 Campylobacter Negative Normal Negative [facility] Comment on above: Result Comment: Camp ylobacter test includes C. jejuni and C. coli. Performed By: #### O REPAIRER GENERAL, ENT BACT PANEL #### [address] Salmonella Species Negative Normal Negative [facility] Comment on above: Result Comment: Test ing performed by RT-PCR PERFORMED BY: [place] [address] PATHOLOGIST [employer] SUPERINTENDENT ANG KERR M.D. Performed By: #### O REPAIRER GENERAL, ENT BACT PANEL #### [address] Shiga Toxin (E coli O157+oth) Negative Normal Negative [facility] Comment on above: Performed By: #### O REPAIRER GENERAL, ENT BACT PANEL #### [address] Shigella Species Negative Normal Negative [facility] Comment on above: Result Comment: Shig mert sp. test includes Shigella species and Enteroinvasive E. coli (EIEC). Performed By: #### O REPAIRER GENERAL, ENT BACT PANEL #### [address] AFP Tumor Marker, Serumon AFP Tumor Marker, Serum 9.3 ng/mL High 0.0-8.4 [facility] Comment on above: [...] is not interpretable in females. Performed at: [facility] [address] [id number] [employer] Administrator: Damon Wood PhD, Phone: [phone] PERFORMED BY: [place] [address] PATHOLOGIST [employer] SUPER[employer]ENT ANG KERR M.D. Performed By: #### A FPTM #### [facility] , Alanine aminotransferase [En zymatic activity/volume] in Serum or PlasmaOrdered By: Jojo Stearns on 03-18-2024 ALT [Catalytic activity/Vol] 24 U/L Normal [facility] Comment on above: Order Comment: Reaso n for Exam Cirrhosis of liver without ascites, unspecified hepatic cirr Performed By: #### C MP, HEPATIC #### [address] ALT [Catalytic activity/Vol] Alanine aminotransferase [Enzymatic activity/volume] in Serum or Plasma [facility] Albumin [Mass/volume] in Ser um or Plasma by Bromocresol green (BCG) dye binding methoOrdered By: Jojo Stearns on 03-18-2024 Albumin BCG dye [Mass/Vol] 3.9 g/dL 3.5-5.7 [facility] Albumin BCG dye [Mass/Vol] Albumin [Mass/volume] in Serum or Plasma by Bromocresol green (BCG) dye binding metho 3.5-5.7 [facility] Alkaline phosphatase [Enzyma tic activity/volume] in Serum or PlasmaOrdered By: Imad Asaad on 03-18-2024 ALP [Catalytic activity/Vol] 59 U/L Normal 34-104 [facility] Comment on above: Order Comment: Reaso n for Exam Cirrhosis of liver without ascites, unspecified hepatic cirr Performed By: #### C MP, HEPATIC #### [facility] [address] ALP [Catalytic activity/Vol] Alkaline phosphatase [Enzymatic activity/volume] in Serum or Plasma 34-104 [facility] Aspartate aminotransferase [ Enzymatic activity/volume] in Serum or PlasmaOrdered By: Imad Asaad on 03-18-2024 AST [Catalytic activity/Vol] 24 U/L Normal 13-39 [facility] Comment on above: Order Comment: Reaso n for Exam Cirrhosis of liver without ascites, unspecified hepatic cirr Performed By: #### C MP, HEPATIC #### [facility] [address] [place] [address] [place] AST [Catalytic activity/Vol] Aspartate aminotransferase [Enzymatic activity/volume] in Serum or Plasma 13-39 [facility] Bilirubin.direct [Mass/volum e] in Serum or PlasmaOrdered By: Imad Asaad on 03-18-2024 Bilirubin.direct [Mass/Vol] 0.10 mg/dL 0.03-0.18 [facility] Bilirubin.direct [Mass/Vol] Bilirubin.direct [Mass/volume] in Serum or Plasma 0.03-0.18 [facility] Bilirubin.total [Mass/volume ] in Serum or PlasmaOrdered By: Imad Asaad on 03-18-2024 Bilirubin [Mass/Vol] 0.6 mg/dL Normal 0.3-1.0 [facility] Comment on above: Order Comment: Reaso n for Exam Cirrhosis of liver without ascites, unspecified hepatic cirr Performed By: #### C MP, HEPATIC #### [facility] [address] [place] [address] [place] Bilirubin [Mass/Vol] Bilirubin.total [Mass/volume] in Serum or Plasma 0.3-1.0 [facility] Calcium [Mass/volume] in Ser um or PlasmaOrdered By: Imad Asaad on 03-18-2024 Calcium [Mass/Vol] 8.8 mg/dL Normal 8.6-10.3 [facility] Comment on above: Order Comment: Reaso n for Exam Cirrhosis of liver without ascites, unspecified hepatic cirr Performed By: #### C MP, HEPATIC #### [facility] [address] [place] [address] [facility] Calcium [Mass/Vol] Calcium [Mass/volume ] in Serum or Plasma 8.6-10.3 [facility] Carbon dioxide, total [Moles /volume] in Serum or PlasmaOrdered By: Imad Asaad on 03-18-2024 CO2 [Moles/Vol] 29.4 mmol/L Normal 21.0-31.0 [facility] Comment on above: Order Comment: Reaso n for Exam Cirrhosis of liver without ascites, unspecified hepatic cirr Performed By: #### C MP, HEPATIC #### [facility] [address] [place] [address] [place] CO2 [Moles/Vol] Carbon dioxide, tota l [Moles/volume] in Serum or Plasma 21.0-31.0 [facility] Chloride [Moles/volume] in S chris or PlasmaOrdered By: Imad Asaad on 03-18-2024 Chloride [Moles/Vol] 107 mmol/L Normal 98-107 [facility] Comment on above: Order Comment: Reaso n for Exam Cirrhosis of liver without ascites, unspecified hepatic cirr Performed By: #### C MP, HEPATIC #### [facility] [address] [place] [address] [place] Chloride [Moles/Vol] Chloride [Moles/vol ume] in Serum or Plasma 98-107 [facility] Comprehensive Metabolic Pane juan francisco 03-18-2024 Albumin [Mass/Vol] 3.9 g/dL Normal 3.5-5.7 [facility] Comment on above: Order Comment: Reaso n for Exam Cirrhosis of liver without ascites, unspecified hepatic cirr Performed By: #### C MP, HEPATIC #### [facility] [address] [place] [address] [place] GFR/1.73 sq M.predicted MDRD (S/P/Bld) [Vol rate/Area] mL/min/{1.73_m2} Normal [facility] Comment on above: Order Comment: Reaso n for Exam Cirrhosis of liver without ascites, unspecified hepatic cirr Performed By: #### C MP, HEPATIC #### [facility] [address] [place] [address] [place] Creatinine [Mass/volume] in Serum or PlasmaOrdered By: Imad Daryn on 03-18-2024 Creatinine [Mass/Vol] 0.81 mg/dL Normal 0.70-1.30 [facility] Comment on above: Order Comment: Reaso n for Exam Cirrhosis of liver without ascites, unspecified hepatic cirr Performed By: #### C MP, HEPATIC #### [facility] [address] [place] [address] [place] Creatinine [Mass/Vol] Creatinine [Mass/v olume] in Serum or Plasma 0.70-1.30 [facility] Globulin Calc (S) [Mass/Vol] Ordered By: Imad Asaad on 03-18-2024 Globulin (S) [Mass/Vol] Serum globulin m easurement by calculation (mass/volume) [facility] Glucose [Mass/volume] in Ser um or PlasmaOrdered By: Imad Asaad on 03-18-2024 Glucose [Mass/Vol] 80 mg/dL Normal 70-100 [facility] Comment on above: ADA recommended refe rence rangeRandom Glucose Reference Range is dependent on time and content of last meal. Glucose of more than 200 mg/dL in a nonstressed, ambulatory subject supports the diagnosis of Diabetes Mellitus. Order Comment: Reaso n for Exam Cirrhosis of liver without ascites, unspecified hepatic cirr Result Comment: [place] Glucose Reference Range is dependent on time and content of last meal. Glucose of more than 200 mg/dL in a nonstressed, ambulatory subject supports the diagnosis of Diabetes Mellitus. ADA recommended reference range Performed By: #### C MP, HEPATIC #### [facility] [address] [place] [address] [place] Glucose [Mass/Vol] Glucose [Mass/volume ] in Serum or Plasma 70-100 [facility] Comment on above: ADA recommended refe rence rangeRandom Glucose Reference Range is dependent on time and content of last meal. Glucose of more than 200 mg/dL in a nonstressed, ambulatory subject supports the diagnosis of Diabetes Mellitus. Hepatic Panelon 03-18-2024 Bilirubin,Indirect 0.5 mg/dL Normal [facility] Comment on above: Order Comment: Reaso n for Exam Cirrhosis of liver without ascites, unspecified hepatic cirr Result Comment: PERF ORMED BY: [place] [address] PATHOLOGIST [employer] SUPERINTENDENT ANG KERR M.D. Performed By: #### C MP, HEPATIC #### [facility] [address] [place] [address] Bilirubin.indirect [Mass/Vol] 0.10 mg/dL Normal 0.03-0.18 [facility] Comment on above: Order Comment: Reaso n for Exam Cirrhosis of liver without ascites, unspecified hepatic cirr Performed By: #### C MP, HEPATIC #### [facility] [address] [place] [address] No Panel InformationOrdered By: Imad Asaad on 03-18-2024 Estimated GFR (CKD-EPI) > 60.0 mL/Min [facility] Creatinine Clearance (Chem N/A [facility] Potassium [Moles/volume] in Serum or PlasmaOrdered By: Imad Asaad on 03-18-2024 Potassium [Moles/Vol] 4.1 mmol/L Normal 3.5-5.1 [facility] Comment on above: Order Comment: Reaso n for Exam Cirrhosis of liver without ascites, unspecified hepatic cirr Performed By: #### C MP, HEPATIC #### [facility] [address] [place] [address] Potassium [Moles/Vol] Potassium [Moles/v olume] in Serum or Plasma 3.5-5.1 [facility] Protein [Mass/volume] in Ser um or PlasmaOrdered By: Imad Asaad on 03-18-2024 Protein [Mass/Vol] 6.2 g/dL Low 6.4-8.9 [facility] Comment on above: Order Comment: Reaso n for Exam Cirrhosis of liver without ascites, unspecified hepatic cirr Performed By: #### C MP, HEPATIC #### [facility] [address] [place] [address] [facility] Protein [Mass/Vol] Protein [Mass/volume ] in Serum or Plasma Low 6.4-8.9 [facility] Serum globulin measurement b y calculation (mass/volume)Ordered By: Jojo Stearns on 03-18-2024 Globulin (S) [Mass/Vol] 2.3 g/dL Normal [facility] Comment on above: Order Comment: Reaso n for Exam Cirrhosis of liver without ascites, unspecified hepatic cirr Performed By: #### C MP, HEPATIC #### [facility] [address] [place] [address] [facility] Serum or plasma albumin/glob ulin mass ratioOrdered By: Jojo Stearns on 03-18-2024 Albumin/Globulin [Mass ratio] 1.7 {ratio} Normal [facility] Comment on above: Order Comment: Reaso n for Exam Cirrhosis of liver without ascites, unspecified hepatic cirr Performed By: #### C MP, HEPATIC #### [facility] [address] [place] [address] [facility] Albumin/Globulin [Mass ratio] Serum or plasma albumin/globulin mass ratio [facility] Serum or plasma [id number] protein tumor marker measurement (mass/volume)Ordered By: Jojo Stearns on 03-18-2024 AFP.tumor marker [Mass/Vol] 9.3 ng/mL High 0.0-8.4 [facility] Comment on above: [employer] ectrochemiluminescence Immunoassay(ECLIA)Values obtained with different assay methods or kits cannotbe used interchangeably. Results cannot be interpreted asabsolute evidence of the presence or absence of malignantdisease.This test is not interpretable in females.Performed at: [address] [id number] Director: Damon Wood PhD, Phone: [phone] AFP.tumor marker [Mass/Vol] Serum or plasma [id number] tumor marker measurement (mass/volume) High 0.0-8.4 [facility] Comment on above: [employer] ectrochemiluminescence Immunoassay(ECLIA)Values obtained with different assay methods or kits cannotbe used interchangeably. Results cannot be interpreted asabsolute evidence of the presence or absence of malignantdisease.This test is not interpretable in females.Performed at: [facility] [address] [id number] Director: Damon Wood PhD, Phone: [phone] Serum or plasma anion gap de terminationOrdered By: Jojo Stearns on 03-18-2024 Anion gap [Moles/Vol] 9.7 mmol/L Normal 6.0-15.0 [facility] Comment on above: Order Comment: Reaso n for Exam Cirrhosis of liver without ascites, unspecified hepatic cirr Performed By: #### C MP, HEPATIC #### [address] Anion gap [Moles/Vol] Serum or plasma an ion gap determination 6.0-15.0 [facility] Serum or plasma non-glucuron idated bilirubin measurement (mass/volume)Ordered By: Jojo Stearns on 03-18-2024 Bilirubin.indirect [Mass/Vol] 0.5 mg/dL [facility] Bilirubin.indirect [Mass/Vol] Serum or plasma non-glucuronidated bilirubin measurement (mass/volume) [facility] Sodium [Moles/volume] in Ser um or PlasmaOrdered By: Jojo Stearns on 03-18-2024 Sodium [Moles/Vol] 142 mmol/L Normal 136-145 [facility] Comment on above: Order Comment: Reaso n for Exam Cirrhosis of liver without ascites, unspecified hepatic cirr Performed By: #### C JEFF, HEPATIC #### [facility] [address] [place] [address] [place] Sodium [Moles/Vol] Sodium [Moles/volume ] in Serum or Plasma 136-145 [facility] US liveron 03-18-2024 liver [facility] [place] [address] [place] [address] Ultrasound Report Signed Patient: Paty Cardona MR#: [id number] : 1955 Acct:[id number] Age/Sex: 68 / M ADM Date: 03/18/24 Loc: UL Room: Type: [facility] Attending Dr: Jojo Stearns MD Ordering Provider: Jojo Stearns MD Date of Service: 03/18/24 US/US liver: Cirrhosis of liver without ascites, unspecified hepatic cirr Copies to: Jojo Stearns MD LIMITED ABDOMINAL ULTRASOUND - liver CLINICAL [...] Aranza Abreu M.D.03/18/2024 12:42 PM Dictation Location: [place] [address] Tech: Carmen Castillo Transcribed By: WILFRID 03/18/24 1242 Dictated By: Aranza Abreu MD 03/18/24 1240 Signed By: 03/18/24 1242 Normal [facility] Urea nitrogen [Mass/volume] in Serum or PlasmaOrdered By: Jojo Stearns on 03-18-2024 Urea nitrogen [Mass/Vol] 19 mg/dL Normal 01-24 [facility] Comment on above: Order Comment: Reaso n for Exam Cirrhosis of liver without ascites, unspecified hepatic cirr Performed By: #### C MP, HEPATIC #### [address] Urea nitrogen [Mass/Vol] Urea nitrogen [Mass/volume] in Serum or Plasma 01-24 [facility] Basophils Auto (Bld) [#/Vol] on 01-05-2024 Basophils (Bld) [#/Vol] 0.0 10 3/uL 0.0-0.1 [facility] Basophils/100 WBC Auto (Bld) on 01-05-2024 Basophils/100 WBC (Bld) 0.5 % 0.2-2.0 [facility] Cholesterol in LDL Calc [Mas s/Vol]on 01-05-2024 Cholesterol in LDL [Mass/Vol] 140.0 mg/dL [facility] Comment on above: <100 mg/dl [id number] 0-129 mg/dl NEAR OR ABOVE [id number] mg/dl BORDERLINE [id number] mg/dl HIGH>190 mg/dl VERY HIGH Cholesterol in VLDL Calc [Ma ss/Vol]on 01-05-2024 Cholesterol in VLDL [Mass/Vol] 24.8 mg/dL [facility] Eosinophils/100 WBC Auto (Bl d)on 01-05-2024 Eosinophils/100 WBC (Bld) 2.6 % 0.9-7.0 [facility] Erythrocyte distribution wid th Auto (RBC) [Ratio]on 01-05-2024 Erythrocyte distribution width (RBC) [Ratio] 12.9 % 11.0-15.0 [facility] Estimated glomerular filtrat ion rate (GFR) non- Americanon 01-05-2024 GFR/1.73 sq M.predicted among non-blacks MDRD (S/P/Bld) [Vol rate/Area] mL/min/{1.73_m2} >=60 [facility] Globulin Calc (S) [Mass/Vol] on 01-05-2024 Globulin (S) [Mass/Vol] 3.6 g/dL [facility] Glucose mean value [Mass/vol ume] in Blood Estimated from glycated hemoglobinon 01-05-2024 Average glucose Estimated from glycated hemoglobin (Bld) [Mass/Vol] 126 mg/dL [facility] Hematocrit Auto (Bld) [Volum e fraction]on 01-05-2024 Hematocrit (Bld) [Volume fraction] 45.1 % 42.0-54.0 [facility] Hemoglobin [Mass/volume] in Bloodon 01-05-2024 Hemoglobin (Bld) [Mass/Vol] 15.5 g/dL 14.0-18.0 [facility] Laboratory - Chemistry and C hemistry - challengeon 01-05-2024 Albumin [Mass/Vol] 3.8 g/dL 3.4-5.0 [facility] ALP [Catalytic activity/Vol] 84 U/L 46-116 [facility] ALT [Catalytic activity/Vol] 40 U/L 16-63 [facility] AST [Catalytic activity/Vol] 26 U/L 15-37 [facility] Bilirubin [Mass/Vol] 0.7 mg/dL 0.2-1.0 [facility] Calcium [Mass/Vol] 8.6 mg/dL 8.5-10.1 [facility] Chloride [Moles/Vol] 108 mmol/L High 98-107 [facility] Cholesterol [Mass/Vol] 214 mg/dL High <=200 [facility] Cholesterol in HDL [Mass/Vol] 50 mg/dL 40-60 [facility] Comment on above: > or =60 mg/dl - LOW CARDIOVASCULAR RISK<40 mg/dl - HIGH CARDIOVASCULAR RISK CO2 [Moles/Vol] 31.1 mmol/L 21.0-32.0 [facility] Creatinine [Mass/Vol] 1.00 mg/dL 0.70-1.30 [facility] GFR/1.73 sq M.predicted MDRD (S/P/Bld) [Vol rate/Area] mL/min/{1.73_m2} >=60 [facility] Glucose [Mass/Vol] 85 mg/dL 74-106 [facility] Potassium [Moles/Vol] 4.3 mmol/L 3.5-5.1 [facility] Protein [Mass/Vol] 7.4 g/dL 6.4-8.2 [facility] Sodium [Moles/Vol] 146 mmol/L High 136-145 [facility] Triglyceride [Mass/Vol] 124 mg/dL <=150 [facility] Urea nitrogen [Mass/Vol] 17.0 mg/dL 7.0-18.0 [facility] Urea nitrogen/Creatinine [Mass ratio] 17.0 mg/mg [facility] Laboratory - Hematology and Cell countson 01-05-2024 HbA1c (Bld) [Mass fraction] 6.0 % 4.5-6.2 [facility] Comment on above: ADA RECOMMENDED LIMI T 4.0 - 6.0ADA THERAPEUTIC TARGET < 7.0ACTION SUGGESTED> 7.0 Immature granulocytes/100 WBC (Bld) 0.5 % 0.0-0.5 [facility] Leukocytes [#/volume] correc jimena for nucleated erythrocytes in Blood by Automated counon 01-05-2024 WBC corrected for nucl RBC Auto (Bld) [#/Vol] 6.2 10 3/uL 4.0-11.0 [facility] Lymphocytes Auto (Bld) [#/Vo l]on 01-05-2024 Lymphocytes (Bld) [#/Vol] 1.5 10 3/uL 1.2-3.8 [facility] Lymphocytes/100 WBC Auto (Bl d)on 01-05-2024 Lymphocytes/100 WBC (Bld) 24.8 % 20.5-60.0 [facility] MCH Auto (RBC) [Entitic mass ]on 01-05-2024 MCH (RBC) [Entitic mass] 31.9 pg 25.9-34.0 [facility] MCHC Auto (RBC) [Mass/Vol]on 01-05-2024 MCHC (RBC) [Mass/Vol] 34.4 g/dL 29.9-35.2 [facility] MCV Auto (RBC) [Entitic vol] on 01-05-2024 MCV (RBC) [Entitic vol] 92.8 fL 80.0-94.0 [facility] Microalbumin [Mass/volume] i n Urineon 01-05-2024 Albumin DL <= 20 mg/L (U) [Mass/Vol] 2.3 mg/dL <=30.0 [facility] Monocytes Auto (Bld) [#/Vol] on 01-05-2024 Monocytes (Bld) [#/Vol] 0.8 10 3/uL 0.3-0.8 [facility] Monocytes/100 WBC Auto (Bld) on 01-05-2024 Monocytes/100 WBC (Bld) 12.4 % High 1.7-12.0 [facility] Neutrophils Auto (Bld) [#/Vo l]on 01-05-2024 Neutrophils (Bld) [#/Vol] 3.7 10 3/uL 1.4-6.5 [facility] Neutrophils/100 WBC Auto (Bl d)on 01-05-2024 Neutrophils/100 WBC (Bld) 59.2 % 43.0-75.0 [facility] No Panel Informationon 01-04 Eosinophils # (Auto) 0.2 10 3/uL 0.0-0.7 [facility] Immature Granulocyte # (Auto) 0.03 10 3/uL 0.00-0.03 [facility] Prostate Specific Antigen Screen 0.47 ng/mL <=4.00 [facility] Platelet mean volume Auto (B ld) [Entitic vol]on 01-05-2024 Platelet mean volume (Bld) [Entitic vol] 10.1 fL 9.5-13.5 [facility] Platelets Auto (Bld) [#/Vol] on 01-05-2024 Platelets (Bld) [#/Vol] 101 10 3/uL Low 150-450 [facility] RBC Auto (Bld) [#/Vol]on RBC (Bld) [#/Vol] 4.86 10 6/uL 4.70-6.10 [facility] Serum or plasma albumin/glob ulin mass ratioon 01-05-2024 Albumin/Globulin [Mass ratio] 1.1 {ratio} [facility] Serum or plasma anion gap de terminationon 01-05-2024 Anion gap [Moles/Vol] 11.2 mmol/L Fi [facility] Serum or plasma total choles terol/high density lipoprotein (HDL) cholesterol mass deysi 01-05-2024 Cholesterol.total/Nora sterol in HDL [Mass ratio] 4.3 {ratio} [facility] Comment on above: 3.3 - 4.4 LOW RISK4. 4 - 7.1 AVERAGE RISK7.1 - 11.0 MODERATE RISK>11.0 HIGH RISK Basophils Auto (Bld) [#/Vol] on 09-22-2023 Basophils (Bld) [#/Vol] 0.0 10 3/uL 0.0-0.1 [facility] Basophils/100 WBC Auto (Bld) on 09-22-2023 Basophils/100 WBC (Bld) 0.6 % 0.2-2.0 [facility] Eosinophils/100 WBC Auto (Bl d)on 09-22-2023 Eosinophils/100 WBC (Bld) 5.1 % 0.9-7.0 [facility] Erythrocyte distribution wid th Auto (RBC) [Ratio]on 09-22-2023 Erythrocyte distribution width (RBC) [Ratio] 13.0 % 11.0-15.0 [facility] Estimated glomerular filtrat ion rate (GFR) non- Americanon 09-22-2023 GFR/1.73 sq M.predicted among non-blacks MDRD (S/P/Bld) [Vol rate/Area] mL/min/{1.73_m2} >=60 [facility] Globulin Calc (S) [Mass/Vol] on 09-22-2023 Globulin (S) [Mass/Vol] 3.4 g/dL [facility] Hematocrit Auto (Bld) [Volum e fraction]on 09-22-2023 Hematocrit (Bld) [Volume fraction] 43.9 % 42.0-54.0 [facility] Hemoglobin [Mass/volume] in Bloodon 09-22-2023 Hemoglobin (Bld) [Mass/Vol] 14.9 g/dL 14.0-18.0 [facility] Laboratory - Chemistry and C hemistry - challengeon 09-22-2023 Albumin [Mass/Vol] 3.4 g/dL 3.4-5.0 [facility] ALP [Catalytic activity/Vol] 87 U/L 46-116 [facility] ALT [Catalytic activity/Vol] 39 U/L 16-63 [facility] AST [Catalytic activity/Vol] 28 U/L 15-37 [facility] Bilirubin [Mass/Vol] 0.7 mg/dL 0.2-1.0 [facility] Calcium [Mass/Vol] 8.4 mg/dL 8.5-10.1 [facility] Chloride [Moles/Vol] 102 mmol/L 98-107 [facility] CO2 [Moles/Vol] 27.9 mmol/L 21.0-32.0 [facility] Creatinine [Mass/Vol] 0.76 mg/dL 0.70-1.30 [facility] GFR/1.73 sq M.predicted MDRD (S/P/Bld) [Vol rate/Area] mL/min/{1.73_m2} >=60 [facility] Glucose [Mass/Vol] 206 mg/dL 74-106 [facility] Potassium [Moles/Vol] 3.9 mmol/L 3.5-5.1 [facility] Protein [Mass/Vol] 6.8 g/dL 6.4-8.2 [facility] Sodium [Moles/Vol] 136 mmol/L 136-145 [facility] Urea nitrogen [Mass/Vol] 13.0 mg/dL 7.0-18.0 [facility] Urea nitrogen/Creatinine [Mass ratio] 17.1 mg/mg [facility] Laboratory - Hematology and Cell countson 09-22-2023 ESR (Bld) [Velocity] 18 mm/h <=20 [facility] Immature granulocytes/100 WBC (Bld) 0.0 % 0.0-0.5 [facility] Leukocytes [#/volume] correc jimena for nucleated erythrocytes in Blood by Automated counon 09-22-2023 WBC corrected for nucl RBC Auto (Bld) [#/Vol] 4.9 10 3/uL 4.0-11.0 [facility] Lymphocytes Auto (Bld) [#/Vo l]on 09-22-2023 Lymphocytes (Bld) [#/Vol] 1.5 10 3/uL 1.2-3.8 [facility] Lymphocytes/100 WBC Auto (Bl d)on 09-22-2023 Lymphocytes/100 WBC (Bld) 30.6 % 20.5-60.0 [facility] MCH Auto (RBC) [Entitic mass ]on 09-22-2023 MCH (RBC) [Entitic mass] 30.5 pg 25.9-34.0 [facility] MCHC Auto (RBC) [Mass/Vol]on 09-22-2023 MCHC (RBC) [Mass/Vol] 33.9 g/dL 29.9-35.2 [facility] MCV Auto (RBC) [Entitic vol] on 09-22-2023 MCV (RBC) [Entitic vol] 90.0 fL 80.0-94.0 [facility] Monocytes Auto (Bld) [#/Vol] on 09-22-2023 Monocytes (Bld) [#/Vol] 0.6 10 3/uL 0.3-0.8 [facility] Monocytes/100 WBC Auto (Bld) on 09-22-2023 Monocytes/100 WBC (Bld) 12.7 % 1.7-12.0 [facility] Neutrophils Auto (Bld) [#/Vo l]on 09-22-2023 Neutrophils (Bld) [#/Vol] 2.5 10 3/uL 1.4-6.5 [facility] Neutrophils/100 WBC Auto (Bl d)on 09-22-2023 Neutrophils/100 WBC (Bld) 51.0 % 43.0-75.0 [facility] No Panel Informationon 09-21 C-Reactive Protein, Quantitative <0.50 mg/dL <=0.50 [facility] Eosinophils # (Auto) 0.3 10 3/uL 0.0-0.7 [facility] Immature Granulocyte # (Auto) 0.00 10 3/uL 0.00-0.03 [facility] Platelet mean volume Auto (B ld) [Entitic vol]on 09-22-2023 Platelet mean volume (Bld) [Entitic vol] 11.0 fL 9.5-13.5 [facility] Platelets Auto (Bld) [#/Vol] on 09-22-2023 Platelets (Bld) [#/Vol] 99 10 3/uL 150-450 [facility] RBC Auto (Bld) [#/Vol]on RBC (Bld) [#/Vol] 4.88 10 6/uL 4.70-6.10 [facility] Serum or plasma albumin/glob ulin mass ratioon 09-22-2023 Albumin/Globulin [Mass ratio] 1.0 {ratio} [facility] Serum or plasma anion gap de terminationon 09-22-2023 Anion gap [Moles/Vol] 10.0 mmol/[facility] abdomen wo/w con [facility] [place] [address] [place] [address] CT Scan Report Signed Patient: Paty Cardona MR#: [id number] : 1955 Acct:[id number] Age/Sex: 67 / M ADM Date: 09/20/23 Loc: CT Room: Type: [facility] Attending Dr: Jojo Stearns MD Copies to: [...] Aranza Abreu M.D.09/20/2023 4:19 PM Dictation Location: [place] [address] Transcribed By: WILFRID 09/20/23 1619 Dictated By: Aranza Abreu MD 09/20/23 1609 Signed By: 09/20/23 1619 Normal [facility] Alanine aminotransferase [En zymatic activity/volume] in Serum or PlasmaOrdered By: Cory Zeng on 08-22-2023 ALT [Catalytic activity/Vol] 42 U/L Normal 7-52 [facility] Comment on above: Performed By: #### T 4F, CRP, CBC, ESR, TSH3, CMP #### [facility] [address] [place] [address] Albumin [Mass/volume] in Ser um or Plasma by Bromocresol green (BCG) dye binding methoOrdered By: Cory Zeng on 08-22-2023 Albumin BCG dye [Mass/Vol] 4.3 g/dL 3.5-5.7 [facility] Alkaline phosphatase [Enzyma tic activity/volume] in Serum or PlasmaOrdered By: Cory Zeng on 08-22-2023 ALP [Catalytic activity/Vol] 70 U/L Normal 34-104 [facility] Comment on above: Performed By: #### T 4F, CRP, CBC, ESR, TSH3, CMP #### [facility] [address] [place] [id number] [place] Aspartate aminotransferase [ Enzymatic activity/volume] in Serum or PlasmaOrdered By: Cory Zeng on 08-22-2023 AST [Catalytic activity/Vol] 32 U/L Normal 13-39 [facility] Comment on above: Performed By: #### T 4F, CRP, CBC, ESR, TSH3, CMP #### [facility] [address] [place] [id number] [place] Automated basophil %Ordered By: Cory Zeng on 08-22-2023 Basophils/100 WBC (Bld) 0.5 % Normal . [facility] Comment on above: Performed By: #### T 4F, CRP, CBC, ESR, TSH3, CMP ####[address] Automated basophil countOrde red By: Cory Hernandezrow on 08-22-2023 Basophils (Bld) [#/Vol] 0.0 10*3/uL Normal 0.0-0.2 [facility] Comment on above: Performed By: #### T 4F, CRP, CBC, ESR, TSH3, CMP ####[address] Automated blood monocyte cou ntOrdered By: Cory Hernandezrow on 08-22-2023 Monocytes (Bld) [#/Vol] 0.5 10*3/uL Normal 0.0-0.8 [facility] Comment on above: Performed By: #### T 4F, CRP, CBC, ESR, TSH3, CMP ####[address] Automated eosinophil %Ordere d By: Cory Hernandezrow on 08-22-2023 Eosinophils/100 WBC (Bld) 4.2 % Normal . [facility] Comment on above: Performed By: #### T 4F, CRP, CBC, ESR, TSH3, CMP ####[address] Automated eosinophil countOr dered By: Cory Hernandezrow on 08-22-2023 Eosinophils (Bld) [#/Vol] 0.2 10*3/uL Normal 0.0-0.45 [facility] Comment on above: Performed By: #### T 4F, CRP, CBC, ESR, TSH3, CMP ####[address] Automated monocyte %Ordered By: Cory Karri on 08-22-2023 Monocytes/100 WBC (Bld) 11.5 % Normal . [facility] Comment on above: Performed By: #### T 4F, CRP, CBC, ESR, TSH3, CMP ####[address] Automated neutrophil %Ordere d By: Cory Zeng on 08-22-2023 Neutrophils/100 WBC (Bld) 50.0 % Normal . [facility] Comment on above: Performed By: #### T 4F, CRP, CBC, ESR, TSH3, CMP ####[facility] [address] Bilirubin.total [Mass/volume ] in Serum or PlasmaOrdered By: Cory Hernandezrow on 08-22-2023 Bilirubin [Mass/Vol] 0.7 mg/dL Normal 0.3-1.0 [facility] Comment on above: Performed By: #### T 4F, CRP, CBC, ESR, TSH3, CMP #### [facility] [address] C reactive protein [Mass/vol ume] in Serum or PlasmaOrdered By: Cory Hernandezrow on 08-22-2023 CRP [Mass/Vol] < 0.5 mg/dL 0.0-0.5 [facility] C-Reactive Proteinon 024 CRP [Mass/Vol] mg/L Normal 0.0-0.5 [facility] Comment on above: Performed By: #### T 4F, CRP, CBC, ESR, TSH3, CMP ####[facility] [address] [place] [address] Calcium [Mass/volume] in Ser um or PlasmaOrdered By: Cory Hernandezrow on 08-22-2023 Calcium [Mass/Vol] 9.2 mg/dL Normal 8.6-10.3 [facility] Comment on above: Performed By: #### T 4F, CRP, CBC, ESR, TSH3, CMP #### [facility] [address] Carbon dioxide, total [Moles /volume] in Serum or PlasmaOrdered By: Cory Hernandezrow on 08-22-2023 CO2 [Moles/Vol] 29.6 mmol/L Normal 21.0-31.0 [facility] Comment on above: Performed By: #### T 4F, CRP, CBC, ESR, TSH3, CMP #### [address] Chloride [Moles/volume] in S chris or PlasmaOrdered By: Cory Zeng on 08-22-2023 Chloride [Moles/Vol] 106 mmol/L Normal 98-107 [facility] Comment on above: Performed By: #### T 4F, CRP, CBC, ESR, TSH3, CMP #### [address] Complete Blood Count Auto Di ffon 08-22-2023 Mean Corpuscular HGB Conc 34.2 g/dL Normal 32.5-35.6 [facility] Comment on above: Performed By: #### T 4F, CRP, CBC, ESR, TSH3, CMP ####[address] NRBC% 0.1 /100{WBC} Normal 0-0.5 [facility] Comment on above: Performed By: #### T 4F, CRP, CBC, ESR, TSH3, CMP ####[address] Comprehensive Metabolic Pane juan francisco 08-22-2023 Albumin [Mass/Vol] 4.3 g/dL Normal 3.5-5.7 [facility] Comment on above: Performed By: #### T 4F, CRP, CBC, ESR, TSH3, CMP #### [address] GFR/1.73 sq M.predicted MDRD (S/P/Bld) [Vol rate/Area] mL/min/{1.73_m2} Normal [facility] Comment on above: Performed By: #### T 4F, CRP, CBC, ESR, TSH3, CMP #### [address] Creatinine [Mass/volume] in Serum or PlasmaOrdered By: Cory Zeng on 08-22-2023 Creatinine [Mass/Vol] 0.72 mg/dL Normal 0.70-1.30 [facility] Comment on above: Performed By: #### T 4F, CRP, CBC, ESR, TSH3, CMP #### [facility] [address] Erythrocyte Sedimentation Ra sylvia 08-22-2023 ESR (Bld) [Velocity] 13 mm/h Normal 0-19 [facility] Comment on above: Result Comment: PERF ORMED BY: [facility] [address] [place] [address] PATHOLOGIST [employer] ANG KERR M.D. Performed By: #### T 4F, CRP, CBC, ESR, TSH3, CMP ####[facility] [address] Erythrocyte distribution wid th [Ratio] by Automated countOrdered By: Cory Zeng on 08-22-2023 Erythrocyte distribution width (RBC) [Ratio] 13.8 % Normal 12.0-14.8 [facility] Comment on above: Performed By: #### T 4F, CRP, CBC, ESR, TSH3, CMP ####[facility] Erythrocyte sedimentation ra te by Photometric methodOrdered By: Cory Zeng on 08-22-2023 ESR Photometric method (Bld) [Velocity] 13 mm/hr 0-19 [facility] Erythrocytes [#/volume] in B lood by Automated countOrdered By: Cory Zeng on 08-22-2023 RBC (Bld) [#/Vol] 4.96 10*6/uL Normal 3.90-5.60 [facility] Comment on above: Performed By: #### T 4F, CRP, CBC, ESR, TSH3, CMP ####[facility] [address] Glucose [Mass/volume] in Ser um or PlasmaOrdered By: Cory Zeng on 08-22-2023 Glucose [Mass/Vol] 100 mg/dL Normal 70-100 [facility] Comment on above: ADA recommended refe rence rangeRandom Glucose Reference Range is dependent on time and content of last meal. Glucose of more than 200 mg/dL in a nonstressed, ambulatory subject supports the diagnosis of Diabetes Mellitus. Result Comment: [place] [facility] Glucose Reference Range is dependent on time and content of last meal. Glucose of more than 200 mg/dL in a nonstressed, ambulatory subject supports the diagnosis of Diabetes Mellitus. ADA recommended reference range Performed By: #### T 4F, CRP, CBC, ESR, TSH3, CMP #### [facility] [address] Hematocrit [Volume Fraction] of Blood by Automated countOrdered By: Cory Zeng on 08-22-2023 Hematocrit (Bld) [Volume fraction] 44.3 % Normal 38.8-50.0 [facility] Comment on above: Performed By: #### T 4F, CRP, CBC, ESR, TSH3, CMP ####[facility] Hemoglobin [Mass/volume] in BloodOrdered By: Cory Zeng on 08-22-2023 Hemoglobin (Bld) [Mass/Vol] 15.2 g/dL Normal 13.0-17.0 [facility] Comment on above: Performed By: #### T 4F, CRP, CBC, ESR, TSH3, CMP ####[facility] [place] [address] Leukocytes [#/volume] correc jimena for nucleated erythrocytes in Blood by Automated counOrdered By: Coyr Zeng on 08-22-2023 WBC corrected for nucl RBC Auto (Bld) [#/Vol] 4.5 10*3/uL 4.1-10.5 [facility] Leukocytes [#/volume] in Blo od by Automated countOrdered By: Cory Zeng on 08-22-2023 WBC (Bld) [#/Vol] 4.5 10*3/uL Normal 4.1-10.5 [facility] Comment on above: Performed By: #### T 4F, CRP, CBC, ESR, TSH3, CMP ####[facility] [address] [place] [address] Lymphocytes [#/volume] in Bl ood by Automated countOrdered By: Cory Zeng on 08-22-2023 Lymphocytes (Bld) [#/Vol] 1.5 10*3/uL Normal 1.00-4.8 [facility] Comment on above: Performed By: #### T 4F, CRP, CBC, ESR, TSH3, CMP ####[address] Lymphocytes/100 leukocytes i n Blood by Automated countOrdered By: Cory Zeng on 08-22-2023 Lymphocytes/100 WBC (Bld) 33.8 % Normal . [facility] Comment on above: Performed By: #### T 4F, CRP, CBC, ESR, TSH3, CMP ####[address] MCH [Entitic mass] by Automa jimena countOrdered By: Cory Zeng on 08-22-2023 MCH (RBC) [Entitic mass] 30.6 pg Normal 27.5-35.2 [facility] Comment on above: Performed By: #### T 4F, CRP, CBC, ESR, TSH3, CMP ####[address] MCHC Auto (RBC) [Mass/Vol]Or dered By: Cory Zeng on 08-22-2023 MCHC (RBC) [Mass/Vol] 34.2 g/dL 32.5-35.6 [facility] MCV [Entitic volume] by Auto mated countOrdered By: Cory Zeng on 08-22-2023 MCV (RBC) [Entitic vol] 89.4 fL Normal 83.5-101 [facility] Comment on above: Performed By: #### T 4F, CRP, CBC, ESR, TSH3, CMP ####[address] Neutrophils [#/volume] in Bl ood by Automated countOrdered By: Cory Zeng on 08-22-2023 Neutrophils (Bld) [#/Vol] 2.3 10*3/uL Normal 1.8-7.7 [facility] Comment on above: Performed By: #### T 4F, CRP, CBC, ESR, TSH3, CMP ####[address] No Panel InformationOrdered By: Cory Zeng on 08-22-2023 Estimated GFR (CKD-EPI) > 60.0 mL/Min [facility] Creatinine Clearance (Chem N/A [facility] Nucleated erythrocytes [Pres ence] in Blood by Automated countOrdered By: Cory Zeng on 08-22-2023 Nucleated RBC Auto Ql (Bld) 0.1 /100{WBC} 0-0.5 [facility] Platelet mean volume [Entiti c volume] in Blood by Automated countOrdered By: Cory Zeng on 08-22-2023 Platelet mean volume (Bld) [Entitic vol] 8.9 fL Normal 6.6-10.1 [facility] Comment on above: Performed By: #### T 4F, CRP, CBC, ESR, TSH3, CMP ####[facility] [address] [place] [address] Platelets [#/volume] in Bloo d by Automated countOrdered By: Cory Zeng on 08-22-2023 Platelets (Bld) [#/Vol] 90 10*3/uL Low 150-450 [facility] Comment on above: Performed By: #### T 4F, CRP, CBC, ESR, TSH3, CMP ####[facility] [address] [place] [address] Potassium [Moles/volume] in Serum or PlasmaOrdered By: Cory Zeng on 08-22-2023 Potassium [Moles/Vol] 4.3 mmol/L Normal 3.5-5.1 [facility] Comment on above: Performed By: #### T 4F, CRP, CBC, ESR, TSH3, CMP #### [facility] [address] Protein [Mass/volume] in Ser um or PlasmaOrdered By: Cory Zeng on 08-22-2023 Protein [Mass/Vol] 6.8 g/dL Normal 6.4-8.9 [facility] Comment on above: Performed By: #### T 4F, CRP, CBC, ESR, TSH3, CMP #### [facility] [address] Serum globulin measurement b y calculation (mass/volume)Ordered By: Cory Hernandezrow on 08-22-2023 Globulin (S) [Mass/Vol] 2.5 g/dL Normal [facility] Comment on above: Performed By: #### T 4F, CRP, CBC, ESR, TSH3, CMP #### [facility] [address] [place] [address] Serum or plasma albumin/glob ulin mass ratioOrdered By: Cory Karri on 08-22-2023 Albumin/Globulin [Mass ratio] 1.7 {ratio} Normal [facility] Comment on above: Performed By: #### T 4F, CRP, CBC, ESR, TSH3, CMP #### [address] Serum or plasma anion gap de terminationOrdered By: Cory Zeng on 08-22-2023 Anion gap [Moles/Vol] 11.7 mmol/L Normal 6.0-15.0 [facility] Comment on above: Performed By: #### T 4F, CRP, CBC, ESR, TSH3, CMP #### [address] Sodium [Moles/volume] in Ser um or PlasmaOrdered By: Cory Zeng on 08-22-2023 Sodium [Moles/Vol] 143 mmol/L Normal 136-145 [facility] Comment on above: Performed By: #### T 4F, CRP, CBC, ESR, TSH3, CMP #### [address] Thyrotropin [Units/volume] i n Serum or PlasmaOrdered By: Coryelena Zeng on 08-22-2023 TSH Qn 1.58 m[IU]/L Normal 0.45-5.33 [facility] Comment on above: Result Comment: PERF ORMED BY: [place] [address] PATHOLOGIST [employer] SU[employer]INT[employer]ENT ANG KERR M.D. Performed By: #### T 4F, CRP, CBC, ESR, TSH3, CMP ####[address] [place] [address] [facility] Thyroxine (T4) free [Mass/vo lume] in Serum or PlasmaOrdered By: Cory Zeng on 08-22-2023 Free T4 [Mass/Vol] 0.89 ng/dL Normal 0.61-1.12 [facility] Comment on above: Performed By: #### T 4F, CRP, CBC, ESR, TSH3, CMP ####[facility] Ctc[address] Urea nitrogen [Mass/volume] in Serum or PlasmaOrdered By: Cory Zeng on 08-22-2023 Urea nitrogen [Mass/Vol] 20 mg/dL Normal 7-25 [facility] Comment on above: Performed By: #### T 4F, CRP, CBC, ESR, TSH3, CMP #### [facility] [address] Capillary blood glucose ken urement by glucometer (mass/volume)Ordered By: Osmar Mathis on 03-30-2023 Glucose [Mass/Vol] 119 mg/dL Normal [facility] Comment on above: Random Glucose Refer ence Range is dependent on time and content of last meal. Glucose of more than 200 mg/dL in a nonstressed, ambulatory subject supports the diagnosis of Diabetes Mellitus. Result Comment: [place] Glucose Reference Range is dependent on time and content of last meal. Glucose of more than 200 mg/dL in a nonstressed, ambulatory subject supports the diagnosis of Diabetes Mellitus. PERFORMED BY: [facility] [address] [place] [address] PATHOLOGIST [employer] SU[employer]ENT ANG KERR M.D. Performed By: #### G EBONY #### Point of Care testing , Juan Francisco 03-30-2023 L ------- Specimen: [id number] Received: 03/30/23 Status: CINTHYA Reddy Num: [id number] Spec Type: Surgical Subm Dr: Osmar Mathis MD Tissues: A STOMACH FOR HP (ANTRUM HP) Procedures: HE/2, Gross/Micro L4, H PYLORI Age/ Patient Sex Location Account Attending Physician Paty Cardona/Vicky [id number] [facility] Mathis MD SPEC NUM: [id number] RECD: 03/30/23 STATUS: CINTHYA REDDY NUM: [id number] RORY: 03/30/23- [facility] DR: Osmar Mathis MD ENTERED: 03/30/23 [...] The microscopic examination confirms the diagnosis. Specimen: [id number] Received: 03/30/23 Status: CINTHYA Reddy Num: [id number] Spec Type: Surgical Subm Dr: Osmar Mathis MD Tissues: A STOMACH FOR HP (ANTRUM HP) Procedures: HE/2, Gross/Micro L4, H PYLORI Patient: Paty Cardona [id number] (Continued) Specimen: [id number] Received: 03/30/23 (Continued) Signed (signature on file) Prashanth Zamarripa MD 03/31/23 1837 Specimen: [id number] Received: 03/30/23 Status: CINTHYA Reddy Num: [id number] Spec Type: Surgical Subm Dr: Osmar Mathis MD Tissues: A STOMACH FOR HP (ANTRUM HP) Procedures: HE/2, Gross/Micro L4, H PYLORI Patient: Paty Cardona [id number] (Continued) Specimen: [id number] Received: 03/30/23 (Continued) CPT Codes 32012, 41602 Specimen: [id number] Received: 03/30/23-123 Status: CINTHYA Reddy Num: [id number] Spec Type: Surgical Subm Dr: Osmar Mathis MD Tissues: A STOMACH FOR HP (ANTRUM HP) Procedures: HE/2, Gross/Micro L4, H PYLORI Patient: Paty Cardona [id number] (Continued) Signed (signature on file) Prashanth Zamarripa MD 03/31/23 7637 Normal [facility] Actin smooth muscle IgG Ab [ Units/volume] in SerumOrdered By: Jojo Stearns on 01-25-2023 Actin smooth muscle IgG Qn (S) 6 Units 0-19 [facility] Comment on above: Negative 0 - 19 [...] analysis Molgen Yemi (Bld/Tiss) See comment . [facility] Comment on above: Results:c.845G>A (p. Dvm919Rre) - Not Detectedc.187C>G (p.Leg19Cnf) - Detected, heterozygousc.193A>T (p.Pqf05Nqb) - Not DetectedNot associated with increased risk [...] recommended for patientswho are homozygous for c.845G>A (p.Nta579Vji) and have yetto experience clinical symptoms.Comments:The most common HFE variants associated with hereditaryhemochromatosis are c.845G>A (p.Nlu655Prj), c.187C>G(p.Faf20Yib), c.193A>T (p.Ksv72Far). While patientshomozygous for c.845G>A (p.Kna037Gqg) are the most likelyto present clinical symptoms, less than 10% developclinically significant iron overload with tissue and organdamage.Genetic counseling is recommended to discuss the potentialclinical implications of positive results, as well asrecommendations for testing family members.Genetic Coordinators are available for health careproviders to discuss results at [phone] Details:Three variants analyzed:c.845G>A (p.Gnp920Pbz), commonly referred to as C282Yc.187C>G (p.Atm75Cmj), commonly referred to as H63Dc.193A>T (p.Ozz96Qdh), commonly referred to as B04JSashkzu/Limitations:DNA Analysis of the HFE gene (NM_000410.4) was [...] was developed and its performancecharacteristics determined by [facility]. It has not beencleared or approved by the Food and Drug Administration.References:Mak BR, Alberto PC, Jovon KV, Gabe LW, Jose Alfredo ;[employer] [employer].Diagnosis and management of hemochromatosis: 2011 practiceguideline by the [place] [employer] the Study ofLiver Diseases. Hepatology. 2010;54(1):328-43. doi:10.1002/hep.20839. PMID: 52681944; PMCID: [id number].Mary G, Tahmina P, Josh LEON, Sixto H, Juan O,Cristo S, Ernst I, Nato M, Zaheer S. [facility] best practiceguidelines for the molecular genetic diagnosis ofhereditary hemochromatosis (HH). Eur J Hum Theresa. 2016Apr;24(4):479-95. doi: 10.1038/ejhg.2015.128. Epub 2014. PMID: 29500602; PMCID: [id number]. Calcium [Mass/volume] in Ser um or PlasmaOrdered By: Imad Asaalexander on 01-25-2023 Calcium [Mass/Vol] 9.0 mg/dL 8.6-10.3 [facility] Carbon dioxide, total [Moles /volume] in Serum or PlasmaOrdered By: Imad Asaad on 01-25-2023 CO2 [Moles/Vol] 24.9 mmol/L 21.0-31.0 [facility] Chloride [Moles/volume] in S chris or PlasmaOrdered By: Imad Asaad on 01-25-2023 Chloride [Moles/Vol] 107 mmol/L 98-107 [facility] Creatinine [Mass/volume] in Serum or PlasmaOrdered By: Imad Asaad on 01-25-2023 Creatinine [Mass/Vol] 0.69 mg/dL 0.70-1.30 [facility] Ferritin [Mass/volume] in Se rum or PlasmaOrdered By: Imad Asaad on 01-25-2023 Ferritin [Mass/Vol] 131.8 ng/mL 23.9-336.2 [facility] Glucose [Mass/volume] in Ser um or PlasmaOrdered By: Imad Asaad on 01-25-2023 Glucose [Mass/Vol] 146 mg/dL 70-100 [facility] Comment on above: ADA recommended refe rence rangeRandom Glucose Reference Range is dependent on time and content of last meal. Glucose of more than 200 mg/dL in a nonstressed, ambulatory subject supports the diagnosis of Diabetes Mellitus. Hepatitis A virus Ab [Presen ce] in Serum by ImmunoassayOrdered By: Imad Daryn on 01-25-2023 HAV Ab IA Ql (S) Positive Negative [facility] Hepatitis B virus surface Ag [Presence] in Serum or Plasma by ImmunoassayOrdered By: Imad Asaad 01-25-2023 HBV surface Ag IA Ql Negative Negative [facility] Hepatitis C virus IgG Ab [Pr esence] in Serum or Plasma by ImmunoassayOrdered By: Imad Asaad on 01-25-2023 HCV IgG IA Ql Non-Reactive Non Reactive [facility] IgA [Mass/volume] in Serum o r PlasmaOrdered By: Imad Asaad on 01-25-2023 IgA [Mass/Vol] 178 mg/dL 61-437 [facility] IgG [Mass/volume] in Serum o r PlasmaOrdered By: Imad Asaad on 01-25-2023 IgG [Mass/Vol] 938 mg/dL 603-1613 [facility] IgM [Mass/volume] in Serum o r PlasmaOrdered By: Imad Daryn on 01-25-2023 IgM [Mass/Vol] 340 mg/dL 20-172 [facility] Comment on above: Performed at: [facility] [address] [id number] Director: Damon Wood PhD, Phone: [phone] Laboratory - CoagulationOrde red By: Imad Daryn on 01-25-2023 PT Coag (PPP) [Time] 13.9 s 9.0-12.9 [facility] Lipase [Enzymatic activity/v olume] in Serum or PlasmaOrdered By: Imad Asaad on 01-25-2023 Lipase [Catalytic activity/Vol] 80.0 U/L 11.0-82.0 [facility] No Panel InformationOrdered By: Imalexander Asaalexander on 01-25-2023 Estimated GFR (CKD-EPI) > 60.0 mL/Min [facility] Hemochromatosis Note See comment . [facility] Comment on above: Shana Suarez, Ph.D., FACMGPerformed at: [facility] [id number] [place], [place] [id number] Director: Tomi Malloy [facility], Phone: [phone] Hepatitis A IgM Antibody Negative Negative [facility] Hepatitis B Core IgM Antibody Negative Negative [facility] Comment on above: Performed at: [facility] [address] [id number] Director: Damon Wood PhD, Phone: [phone] Hepatitis B Core Total Antibody Negative Negative [facility] Hepatitis C Interpretation See comment . [facility] Comment on above: Not infected with HC V unless early or acute infection issuspected (which may be delayed in an immunocompromisedindividual), or other evidence exists to indicate HCVinfection. Hepatitis C RNA Quantitative N/A [facility] Creatinine Clearance (Chem N/A [facility] Platelet poor plasma interna tional normalized ratio (INR) by coagulation assay (relatOrdered By: Jojo Stearns on 01-25-2023 INR Coag (PPP) [Relative time] 1.2 {INR} [facility] Comment on above: INR Therapeutic Rang e [...] on 01-25-2023 Potassium [Moles/Vol] 3.6 mmol/L 3.5-5.1 [facility] Serum wklgw-8-tlnwltufuwj me asurementOrdered By: Jojo Stearns on 01-25-2023 Alpha 1 antitrypsin [Mass/Vol] 157 mg/dL 101-187 [facility] Serum hepatitis B virus surf arleth antibody detectionOrdered By: Jojo Stearns on 01-25-2023 HBV surface Ab Ql (S) Non-Reactive . [facility] Comment on above: Non Reactive: Incons istent with immunity, less than 10 mIU/mL Reactive: Consistent with immunity, greater than 9.9 mIU/mL Serum homogeneous pattern an tinuclear antibody (ANATOLIY) titerOrdered By: Jojo Stearns on 01-25-2023 Homogenous nuclear Ab pattern (S) [Titer] N/A [facility] Serum mitochondria M2 IgG an tibody assay (units/volume)Ordered By: alexander [facility] on 01-25-2023 Mitochondria M2 IgG Qn (S) <20.0 Units 0.0-20.0 [facility] Comment on above: Negative 0.0 - 20.0 Equivocal 20.1 - 24.9 Positive >24.9Mitochondrial (M2) Antibodies are found in 90-96% ofpatients with primary biliary cirrhosis. Serum nuclear antibody titer Ordered By: Jojo Stearns on 01-25-2023 Nuclear Ab (S) [Titer] Negative . [facility] Comment on above: Negative <1:80 Borde rline 1:80 Positive >1:80ICAP nomenclature: AC-0For more information about Hep-2 cell patterns useANApatterns.org, the official website for theInternational Consensus on Antinuclear Antibody (ANATOLIY)Patterns (ICAP).Performed at: [facility] [id number] Director: Damon Wood PhD, Phone: [phone] Serum or plasma alpha 1 anti trypsin phenotyping identification by immunofixationOrdered By: Jojo Stearns on 01-25-2023 Alpha 1 antitrypsin phenotyping Immunofixation Nom Mm . [facility] Comment on above: Phenotype Population A-1-AT Concentration* [...] reference. Ranges used to confirm phenotype.Performed at: [facility] [id number] Director: Damon Wood PhD, Phone: [phone] at: [address] [id number] Director: Jim Carty MD, Phone: [phone] Serum or plasma odktg-4-wums protein tumor marker measurement (mass/volume)Ordered By: Jojo Stearns on 01-25-2023 AFP.tumor marker [Mass/Vol] 14.1 ng/mL 0.0-8.4 [facility] Comment on above: [facility] El ectrochemiluminescence Immunoassay(ECLIA)Values obtained with different assay methods or kits cannotbe used interchangeably. Results cannot be interpreted asabsolute evidence of the presence or absence of malignantdisease.This test is not interpretable in females.Performed at: [facility] [id number] Director: Damon Wood PhD, Phone: [phone] Serum or plasma anion gap de terminationOrdered By: Jojo Stearns on 01-25-2023 Anion gap [Moles/Vol] 12.7 mmol/L 6.0-15.0 [facility] Serum or plasma ceruloplasmi n measurement (mass/volume)Ordered By: Jojo Stearns on 01-25-2023 Ceruloplasmin [Mass/Vol] 27.4 mg/dL 16.0-31.0 [facility] Comment on above: Performed at: [address] [id number] Director: Damon Wood PhD, Phone: [phone] Serum or plasma lipoprotein a measurement (moles/volume)Ordered By: Jojo Stearns on 01-25-2023 Lipoprotein a [Moles/Vol] 1.1 Units 0.0-20.0 [facility] Comment on above: Negative 0.0 - 20.0 Equivocal 20.1 - 24.9 Positive >24.9LKM type 1 antibodies are detected in patients withautoimmune hepatitis type 2 and in up to 8% ofpatients with chronic HCV infection. Sodium [Moles/volume] in Ser um or PlasmaOrdered By: Jojo Stearns on 01-25-2023 Sodium [Moles/Vol] 141 mmol/L 136-145 [facility] Urea nitrogen [Mass/volume] in Serum or PlasmaOrdered By: Jjoo Stearns on 01-25-2023 Urea nitrogen [Mass/Vol] 20 mg/dL 7-25 [facility] HEPATITIS PANEL, ACUTEon HBsAg Screen Negative Normal Negative [facility] Comment on above: Performed By: #### H EPACUT #### [facility] [address] [address] [address] Poncho Zamarripa HCV AB <0.1 Normal 0.0-0.9 [facility] Comment on above: Performed By: #### H EPACUT #### [facility] [address] [address] [address] Poncho Zamarripa Hep A Ab, IgM Negative Normal Negative [facility] Comment on above: Performed By: #### H EPACUT #### [facility] [address] [place] [address] Dr. Poncho Zamarripa Hep B Core Ab, IgM Negative Normal Negative [facility] Comment on above: Performed By: #### H EPACUT #### [facility] [address] [place] [address] Dr. Poncho Zamarripa Interpretation: Comment Normal [facility] Comment on above: Result Comment: Nega tive Not infected with HCV, unless recent infection is suspected or other evidence exists to indicate HCV infection. Performed By: #### H EPACUT #### [facility] [address] [place] [address] Dr. Poncho Zamarripa US SINGLE QUAD RT [...] ART CAIN Date: 2022-05-08 08:36 Normal [facility] CBC AUTO DIFFon 05-07-2022 BASO # 0.0 103/ul Normal 0.0-0.1 [facility] Comment on above: Performed By: #### M ALBR #### [facility] [address] [place] [address] Dr. Poncho Zamarripa Basophils/100 WBC (Bld) 0.4 % Normal 0.2-2.0 [facility] Comment on above: Performed By: #### M ALBR #### [facility] [address] [place] [address] Dr. Poncho Zamarripa EO # 0.2 103/ul Normal 0.0-0.7 [facility] Comment on above: Performed By: #### M ALBR #### [facility] [address] [place] [address] Dr. Poncho Zamarripa Eosinophils/100 WBC (Bld) 2.7 % Normal 0.9-7.0 [facility] Comment on above: Performed By: #### M ALBR #### [facility] [address] [place] [address] Dr. Poncho Zamarripa Erythrocyte distribution width (RBC) [Ratio] 11.9 % Normal 11.0-15.0 [facility] Comment on above: Performed By: #### M ALBR #### [facility] [address] [place] [address] Dr. Poncho Zamarripa Hematocrit (Bld) [Volume fraction] 45.1 % Normal 42.0-54.0 [facility] Comment on above: Performed By: #### M ALBR #### [facility] [address] [place] [address] Dr. Poncho Zamarripa Hemoglobin (Bld) [Mass/Vol] 15.3 g/dL Normal 14.0-18.0 [facility] Comment on above: Performed By: #### M ALBR #### [facility] [address] [place] [address] Dr. Poncho Zamarripa IG # 0.02 10e3/ul Normal 0.00-0.03 [facility] Comment on above: Performed By: #### M ALBR #### [facility] [address] [place] [address] Dr. Poncho Zamarripa IG % 0.4 % Normal 0.0-0.5 [facility] Comment on above: Performed By: #### M ALBR #### [facility] [address] [place] [address] Dr. Poncho Zamarripa LYMPH # 1.7 103/ul Normal 1.2-3.8 [facility] Comment on above: Performed By: #### M ALBR #### [facility] [address] [place] [address] Dr. Poncho Zamarripa Lymphocytes/100 WBC (Bld) 31.3 % Normal 20.5-60.0 [facility] Comment on above: Performed By: #### M ALBR #### [facility] [address] [place] [address] Dr. Poncho Zamarripa MANUAL DIFF REQ NO Normal [facility] Comment on above: Performed By: #### M ALBR #### [facility] [address] [place] [address] Dr. Poncho Zamarripa MCH (RBC) [Entitic mass] 31.2 pg Normal 25.9-34.0 [facility] Comment on above: Performed By: #### M ALBR #### [facility] [address] [place] [address] Dr. Poncho Zamarripa MCHC (RBC) [Mass/Vol] 33.9 g/dL Normal 29.9-35.2 [facility] Comment on above: Performed By: #### M ALBR #### [facility] [address] [place] [address] Dr. Poncho Zamarripa MCV (RBC) [Entitic vol] 91.9 fL Normal 80.0-94.0 [facility] Comment on above: Performed By: #### M ALBR #### [facility] [address] [place] [address] Dr. Poncho Zamarripa MONO # 0.5 103/ul Normal 0.3-0.8 [facility] Comment on above: Performed By: #### M ALBR #### [facility] [address] [place] [address] Dr. Poncho Zamarripa Monocytes/100 WBC (Bld) 8.6 % Normal 1.7-12.0 [facility] Comment on above: Performed By: #### M ALBR #### [facility] [address] [place] [address] Dr. Poncho Zamarripa NEUT # 3.2 103/ul Normal 1.4-6.5 [facility] Comment on above: Performed By: #### M ALBR #### [facility] [address] [place] [address] Dr. Poncho Zamarripa Neutrophils/100 WBC (Bld) 56.6 % Normal 43.0-75.0 [facility] Comment on above: Performed By: #### M ALBR #### [facility] [address] [place] [address] Dr. Poncho Zamarripa Platelet mean volume (Bld) [Entitic vol] 10.4 fL Normal 9.5-13.5 [facility] Comment on above: Performed By: #### M ALBR #### [facility] [address] [place] [address] Dr. Poncho Zamarripa PLT 102 103/ul Critically low 150-450 [facility] Comment on above: Performed By: #### M ALBR #### [facility] [address] [place] [address] Dr. Poncho Zamarripa RBC 4.91 106/ul Normal 4.70-6.10 [facility] Comment on above: Performed By: #### M ALBR #### [facility] [address] [place] [address] Dr. Poncho Zamarripa WBC 5.6 103/ul Normal 4.0-11.0 [facility] Comment on above: Performed By: #### M ALBR #### [facility] [address] [place] [address] Dr. Poncho Zamarripa FERRITINon 05-07-2022 Ferritin [Mass/Vol] 296.0 ng/mL Normal 26.0-388.0 [facility] Comment on above: Performed By: #### M ALBR #### [facility] [address] [place] [address] Dr. Poncho Zamarripa GLYCOHEMOGLOBIN A1Con 2021 ADA RECOMMENDATION SEE BELOW Normal [facility] Comment on above: Result Comment: ADA RECOMMENDED LIMIT 4.0 - 6.0 ADA THERAPEUTIC TARGET < 7.0 ACTION SUGGESTED > 7.0 Performed By: #### A 1C #### [facility] [address] [place] [address] Dr. Poncho Zamarripa Glucose [Mass/Vol] 255 mg/dL Normal [facility] Comment on above: Performed By: #### A 1C #### [facility] [address] [place] [address] Dr. Poncho Zamarripa HbA1c (Bld) [Mass fraction] 10.5 % Critically high 4.5-6.2 [facility] Comment on above: Performed By: #### A 1C #### [facility] [address] [place] [address] Dr. Poncho Zamarripa IRON AND TIBCon 05-07-2022 % SATURATION 37.6 % Normal [facility] Comment on above: Performed By: #### M ALBR #### [facility] [address] [place] [address] Dr. Poncho Zamarripa Iron [Mass/Vol] 115.0 ug/dL Normal 65.0-175.0 [facility] Comment on above: Performed By: #### M ALBR #### [facility] [address] [place] [address] Dr. Poncho Zamarripa TIBC DIRECT 306.0 ug/dL Normal 250.0-450. 0 [facility] Comment on above: Performed By: #### M ALBR #### [facility] [address] [place] [address] Dr. Poncho Zamarripa LIVER PROFILEon 05-07-2022 Albumin [Mass/Vol] 3.6 g/dL Normal 3.4-5.0 [facility] Comment on above: Performed By: #### L IVER #### [facility] [address] [place] [address] Dr. Poncho Zamarripa Albumin/Globulin [Mass ratio] 1.0 {ratio} Normal [facility] Comment on above: Performed By: #### L IVER #### [facility] [address] [place] [address] Dr. Poncho Zamarripa ALP [Catalytic activity/Vol] 122 U/L Critically high 46-116 [facility] Comment on above: Performed By: #### L IVER #### [facility] [address] [place] [address] Dr. Poncho Zamarripa ALT [Catalytic activity/Vol] 101 U/L Critically high 16-63 [facility] Comment on above: Performed By: #### L IVER #### [facility] [address] [place] [address] Dr. Poncho Zamarripa AST [Catalytic activity/Vol] 43 U/L Critically high 15-37 [facility] Comment on above: Performed By: #### L IVER #### [facility] [address] [place] [address] Dr. Poncho Zamarripa BILI, CONJUGATED 0.2 mg/dL Normal 0.0-0.2 [facility] Comment on above: Performed By: #### L IVER #### [facility] [address] [place] [address] Dr. Poncho Zamarripa Bilirubin [Mass/Vol] 0.4 mg/dL Normal 0.2-1.0 [facility] Comment on above: Performed By: #### L IVER #### [facility] [address] [place] [address] Dr. Poncho Zamarripa Globulin (S) [Mass/Vol] 3.7 g/dL Normal T [facility] Comment on above: Performed By: #### L IVER #### [facility] [address] [place] [address] Dr. Poncho Zamarripa Protein [Mass/Vol] 7.3 g/dL Normal 6.4-8.2 [facility] Comment on above: Performed By: #### L IVER #### [facility] [address] [place] [address] Dr. Poncho Zamarripa URINE T PROTEIN CREAT RATIOo n 05-07-2022 Protein (U) [Mass/Vol] 6.4 mg/dL Normal <=12.0 [facility] Comment on above: Performed By: #### U RTPCR #### [facility] [address] [place] [address] Dr. Poncho Zamarripa UR PROT CREAT RAT 0.13 Normal [facility] Comment on above: Performed By: #### U RTPCR #### [facility] [address] [place] [address] Dr. Poncho Zamarripa URINE CREAT 49.58 mg/dL Normal 20.00-300. 00 [facility] Comment on above: Performed By: #### U RTPCR #### [facility] [address] [place] [address] Dr. Poncho Zamarripa CBC AUTO DIFFon 01-28-2022 BASO # 0.0 103/ul Normal 0.0-0.1 [facility] Comment on above: Performed By: #### C BC #### [facility] [address] [address] [address] Poncho Zamarripa Basophils/100 WBC (Bld) 0.4 % Normal 0.2-2.0 [facility] Comment on above: Performed By: #### C BC #### [facility] [address] [place] [address] Dr. Poncho Zamarripa EO # 0.2 103/ul Normal 0.0-0.7 [facility] Comment on above: Performed By: #### C BC #### [facility] [address] [place] [address] Dr. Poncho Zamarripa Eosinophils/100 WBC (Bld) 2.3 % Normal 0.9-7.0 [facility] Comment on above: Performed By: #### C BC #### [facility] [address] [place] [address] Dr. Poncho Zamarripa Erythrocyte distribution width (RBC) [Ratio] 12.4 % Normal 11.0-15.0 [facility] Comment on above: Performed By: #### C BC #### [facility] [address] [place] [address] Dr. Poncho Zamarripa Hematocrit (Bld) [Volume fraction] 45.6 % Normal 42.0-54.0 [facility] Comment on above: Performed By: #### C BC #### [facility] [address] [place] [address] Dr. Poncho Zamarripa Hemoglobin (Bld) [Mass/Vol] 15.9 g/dL Normal 14.0-18.0 [facility] Comment on above: Performed By: #### C BC #### [facility] [address] [place] [address] Dr. Poncho Zamarripa IG # 0.03 10e3/ul Normal 0.00-0.03 [facility] Comment on above: Performed By: #### C BC #### [facility] [address] [place] [address] Dr. Poncho Zamarripa IG % 0.4 % Normal 0.0-0.5 [facility] Comment on above: Performed By: #### C BC #### [facility] [address] [place] [address] Dr. Poncho Zamarripa LYMPH # 2.6 103/ul Normal 1.2-3.8 [facility] Comment on above: Performed By: #### C BC #### [facility] [address] [place] [address] Dr. Poncho Zamarripa Lymphocytes/100 WBC (Bld) 35.0 % Normal 20.5-60.0 [facility] Comment on above: Performed By: #### C BC #### [facility] [address] [place] [address] Dr. Poncho Zamarripa MANUAL DIFF REQ NO Normal [facility] Comment on above: Performed By: #### C BC #### [facility] [address] [place] [address] Dr. Poncho Zaamrripa MCH (RBC) [Entitic mass] 31.5 pg Normal 25.9-34.0 [facility] Comment on above: Performed By: #### C BC #### [facility] [address] [place] [address] Dr. Poncho Zamarripa MCHC (RBC) [Mass/Vol] 34.9 g/dL Normal 29.9-35.2 [facility] Comment on above: Performed By: #### C BC #### [facility] [address] [place] [address] Dr. Poncho Zamarripa MCV (RBC) [Entitic vol] 90.5 fL Normal 80.0-94.0 [facility] Comment on above: Performed By: #### C BC #### [facility] [address] [place] [address] Dr. Poncho Zamarripa MONO # 0.7 103/ul Normal 0.3-0.8 [facility] Comment on above: Performed By: #### C BC #### [facility] [address] [place] [address] Dr. Poncho Zamarripa Monocytes/100 WBC (Bld) 9.9 % Normal 1.7-12.0 [facility] Comment on above: Performed By: #### C BC #### [facility] [address] [place] [address] Dr. Poncho Zamarripa NEUT # 3.8 103/ul Normal 1.4-6.5 [facility] Comment on above: Performed By: #### C BC #### [facility] [address] [address] [address] Poncho Zamarripa Neutrophils/100 WBC (Bld) 52.0 % Normal 43.0-75.0 [facility] Comment on above: Performed By: #### C BC #### [facility] [address] [address] [address] Poncho Zamarripa Platelet mean volume (Bld) [Entitic vol] 10.7 fL Normal 9.5-13.5 [facility] Comment on above: Performed By: #### C BC #### [facility] [address] [place] [address] Dr. Poncho Zamarripa PLT 125 103/ul Critically low 150-450 [facility] Comment on above: Result Comment: NO P LATELET CLUMPING SEN ON PERIPHERAL SMEAR Performed By: #### C BC #### [facility] [address] [place] [address] Dr. Poncho Zamarripa RBC 5.04 106/ul Normal 4.70-6.10 [facility] Comment on above: Performed By: #### C BC #### [facility] [address] [place] [address] Dr. Poncho Zamarripa WBC 7.3 103/ul Normal 4.0-11.0 [facility] Comment on above: Performed By: #### C BC #### [facility] [address] [place] [address] Dr. Poncho Zamarripa GLYCOHEMOGLOBIN A1Con 2021 ADA RECOMMENDATION SEE BELOW Normal [facility] Comment on above: Result Comment: ADA RECOMMENDED LIMIT 4.0 - 6.0 ADA THERAPEUTIC TARGET < 7.0 ACTION SUGGESTED > 7.0 Performed By: #### A 1C #### [facility] [address] [place] [address] Dr. Poncho Zamarripa Glucose [Mass/Vol] 243 mg/dL Normal [facility] Comment on above: Performed By: #### A 1C #### [facility] [address] [address] [address] Poncho Zamarripa HbA1c (Bld) [Mass fraction] 10.1 % Critically high 4.5-6.2 [facility] Comment on above: Performed By: #### A 1C #### [facility] [address] [place] [address] Dr. Poncho Zamarripa MICROALBUMIN, RAND URon 07-2 mALB 3.3 mg/L Normal <=30.0 [facility] Comment on above: Performed By: #### M ALBR #### [facility] [address] [place] [address] Dr. Poncho Zamarripa PROF CHEM 8 (BAS METB)on Anion gap [Moles/Vol] 10.9 mmol/L Normal Th [facility] Comment on above: Performed By: #### M ALBR #### [facility] [address] [place] [address] Dr. Poncho Zamarripa Calcium [Mass/Vol] 9.2 mg/dL Normal 8.5-10.1 [facility] Comment on above: Performed By: #### M ALBR #### [facility] [address] [place] [address] Dr. Poncho Zamarripa Chloride [Moles/Vol] 103 mmol/L Normal 98-107 [facility] Comment on above: Performed By: #### M ALBR #### [facility] [address] [place] [address] Dr. Poncho Zamarripa CO2 [Moles/Vol] 29.4 mmol/L Normal 21.0-32.0 [facility] Comment on above: Performed By: #### M ALBR #### [facility] [address] [place] [address] Dr. Poncho Zamarripa Creatinine [Mass/Vol] 0.83 mg/dL Normal 0.70-1.30 [facility] Comment on above: Performed By: #### M ALBR #### [facility] [address] [place] [address] Dr. Poncho Zamarripa EGFR-AF ALBANIAN >60 Normal >=60 [facility] Comment on above: Performed By: #### M ALBR #### [facility] [address] [address] [address] Poncho Zamarripa EGFR-NON AF ALBANIAN >60 Normal >=60 [facility] Comment on above: Performed By: #### M ALBR #### [facility] [address] [address] [address] Poncho Zamarripa Glucose [Mass/Vol] 245 mg/dL Critically high 74-106 [facility] Comment on above: Performed By: #### M ALBR #### [facility] [address] [address] [address] Poncho Zamarripa Potassium [Moles/Vol] 4.3 mmol/L Normal 3.5-5.1 [facility] Comment on above: Performed By: #### M ALBR #### [facility] [address] [place] [address] Dr. Poncho Zamarripa Sodium [Moles/Vol] 139 mmol/L Normal 136-145 [facility] Comment on above: Performed By: #### M ALBR #### [facility] [address] [address] [address] Poncho Zamarripa Urea nitrogen [Mass/Vol] 17.0 mg/dL Normal 7.0-18.0 [facility] Comment on above: Performed By: #### M ALBR #### [facility] [address] [place] [address] Dr. Poncho Zamarripa Urea nitrogen/Creatinine [Mass ratio] 20.5 mg/mg Normal [facility] Comment on above: Performed By: #### M ALBR #### [facility] [address] [address] [address] Poncho Zamarripa SGOTon 01-28-2022 AST [Catalytic activity/Vol] 72 U/L Critically high 15-37 [facility] Comment on above: Performed By: #### M ALBR #### [facility] [address] [address] [address] Poncho Zamarripa SGPTon 01-28-2022 ALT [Catalytic activity/Vol] 131 U/L Critically high 16-63 [facility] Comment on above: Performed By: #### A ST, BMP, ALT #### [facility] [address] [place] [address] Dr. Poncho Zamarripa CBC Auto Differentialon 04-02 Basophils (Bld) [#/Vol] 0.00 10*3/uL [place] Basophils/100 WBC (Bld) 0 % 0 - 2 % [place] Differential Type NOT REPORTED [place] Eosinophils (Bld) [#/Vol] 0.00 10*3/uL [place] Eosinophils/100 WBC (Bld) 0 % Low 1 - 4 % [place] Erythrocyte distribution width (RBC) [Ratio] 12.5 % 11.8 - 14.4 % [place] Hematocrit (Bld) [Volume fraction] 40.5 % Low 40.7 - 50.3 % [place] Hemoglobin (Bld) [Mass/Vol] 13.6 g/dL 13 - 17 g/dL [place] Immature granulocytes (Bld) [#/Vol] 0.00 10*3/uL [place] Immature granulocytes (Bld) [#/Vol] 0 % 0 [place] Interpretation and review of laboratory results Abnormal [place] Lymphocytes (Bld) [#/Vol] 1.12 10*3/uL [place] Lymphocytes/100 WBC (Bld) 11 % Low 24 - 44 % [place] MCH (RBC) [Entitic mass] 31.6 pg 25.2 - 33.5 pg [place] MCHC (RBC) [Mass/Vol] 33.6 g/dL 28.4 - 34.8 g/dL [place] MCV (RBC) [Entitic vol] 94.0 fL 82.6 - 102.9 fL [place] Monocytes (Bld) [#/Vol] 0.92 10*3/uL [place] Monocytes/100 WBC (Bld) 9 % High 1 - 7 % [place] Morphology Yordy (Bld) [Interp] Normal [place] Platelet mean volume (Bld) [Entitic vol] 10.6 fL 8.1 - 13.5 fL [place] Platelets (Bld) [#/Vol] NOT REPORTED [place] Platelets (Bld) [#/Vol] 150 10*3/uL [place] RBC (Bld) [#/Vol] 4.31 10*6/uL 4.21 - 5.77 m/uL [place] RBC morphology finding Nom (Bld) NOT REPORTED [place] Segmented neutrophils/100 WBC (Bld) 80 % High 36 - 66 % [place] Segs Absolute 8.16 High [place] WBC (Bld) [#/Vol] 0.0 10*3/uL 0.0 per 100 WBC [place] WBC (Bld) [#/Vol] 10.2 10*3/uL [place] WBC Morphology NOT REPORTED [place] CBC with Diffon 04-18-2019 Abs. Basophil 0.00 k/uL Normal 0.0-0.2 [facility] Comment on above: Performed By: #### P T, IOCAL, CBC, IPF, HARVEY, CMPX, MG, TAMIE, TRIG, LIP #### [facility] [employer] [address] [place], [place] [id number] Linux Administrator: Bunny Moy MD Abs.Imm.Granulocyte 0.00 k/uL Normal 0.00-0.30 [facility] Comment on above: Performed By: #### P T, IOCAL, CBC, IPF, HARVEY, CMPX, MG, TAMIE, TRIG, LIP #### [facility] [employer] [address] [place] [address] [id number] Linux Administrator: Bunny Moy MD Abs.Neutrophil (Seg) 8.16 k/uL High 1.8-7.[address] [facility] Comment on above: Performed By: #### P T, IOCAL, CBC, IPF, HARVEY, CMPX, MG, TAMIE, TRIG, LIP #### [address] [address] Linux Administrator: Bunny Moy MD Basophils/100 WBC (Bld) 0 % Normal 0-2 M [facility] Comment on above: Performed By: #### P T, IOCAL, CBC, IPF, HARVEY, CMPX, MG, TAMIE, TRIG, LIP #### [address] [address] Linux Administrator: Bunny Moy MD Eosinophils (Bld) [#/Vol] 0.00 10*3/uL Normal 0.0-0.4 [facility] Comment on above: Performed By: #### P T, IOCAL, CBC, IPF, HARVEY, CMPX, MG, TAMIE, TRIG, LIP #### [place] [address] Linux Administrator: Bunny Moy MD Eosinophils/100 WBC (Bld) 0 % Low 1-4 [facility] Comment on above: Performed By: #### P T, IOCAL, CBC, IPF, HARVEY, CMPX, MG, TAMIE, TRIG, LIP #### [place] [address] Linux Administrator: Bunny Moy MD Immature granulocytes (Bld) [#/Vol] 0 % Normal 0 [facility] Comment on above: Performed By: #### P T, IOCAL, CBC, IPF, HARVEY, CMPX, MG, TAMIE, TRIG, LIP #### [place] [address] Linux Administrator: Bunny Moy MD Lymphocytes (Bld) [#/Vol] 1.12 10*3/uL Normal 1.0-4.8 [facility] Comment on above: Performed By: #### P T, IOCAL, CBC, IPF, HARVEY, CMPX, MG, TAMIE, TRIG, LIP #### [address] [address] Linux Administrator: Bunny Moy MD Lymphocytes/100 WBC (Bld) 11 % Low 24-44 [facility] Comment on above: Performed By: #### P T, IOCAL, CBC, IPF, HARVEY, CMPX, MG, TAMIE, TRIG, LIP #### [address] [address] Linux Administrator: Bunny Moy MD Monocytes (Bld) [#/Vol] 0.92 10*3/uL High 0.1-0.8 [facility] Comment on above: Performed By: #### P T, IOCAL, CBC, IPF, HARVEY, CMPX, MG, TAMIE, TRIG, LIP #### [address] [address] Linux Administrator: Bunny Moy MD Monocytes/100 WBC (Bld) 9 % High 1-7 M [facility] Comment on above: Performed By: #### P T, IOCAL, CBC, IPF, HARVEY, CMPX, MG, TAMIE, TRIG, LIP #### [place] [address] Linux Administrator: Bunny Moy MD Morphology Yordy (Bld) [Interp] Normal Normal [facility] Comment on above: Performed By: #### P T, IOCAL, CBC, IPF, HARVEY, CMPX, MG, TAMIE, TRIG, LIP #### [address] [address] Linux Administrator: Bunny Moy MD Neutrophil (Seg) 80 % High 36-66 [facility] Comment on above: Performed By: #### P T, IOCAL, CBC, IPF, HARVEY, CMPX, MG, TAMIE, TRIG, LIP #### [address] [address] Linux Administrator: Bunny Moy MD Erythrocyte distribution width (RBC) [Ratio] 12.5 % Normal 11.8-14.4 [facility] Comment on above: Performed By: #### P T, IOCAL, CBC, IPF, HARVEY, CMPX, MG, TAMIE, TRIG, LIP #### [place] [address] Linux Administrator: Bunny Moy MD Hematocrit (Bld) [Volume fraction] 40.5 % Low 40.7-50.3 [facility] Comment on above: Performed By: #### P T, IOCAL, CBC, IPF, HARVEY, CMPX, MG, TAMIE, TRIG, LIP #### [place] [address] Linux Administrator: Bunny Moy MD Hemoglobin (Bld) [Mass/Vol] 13.6 g/dL Normal 13.0-17.0 [facility] Comment on above: Performed By: #### P T, IOCAL, CBC, IPF, HARVEY, CMPX, MG, TAMIE, TRIG, LIP #### [place] [address] Linux Administrator: Bunny Moy MD MCH (RBC) [Entitic mass] 31.6 pg Normal 25.2-33.5 [facility] Comment on above: Performed By: #### P T, IOCAL, CBC, IPF, AHRVEY, CMPX, MG, TAMIE, TRIG, LIP #### [place] [address] Linux Administrator: Bunny Moy MD MCHC (RBC) [Mass/Vol] 33.6 g/dL Normal 28.4-34.8 [facility] Comment on above: Performed By: #### P T, IOCAL, CBC, IPF, HARVEY, CMPX, MG, TAMIE, TRIG, LIP #### [place] [address] Linux Administrator: Bunny Moy MD MCV (RBC) [Entitic vol] 94.0 fL Normal 82.6-102.9 M [facility] Comment on above: Performed By: #### P T, IOCAL, CBC, IPF, HARVEY, CMPX, MG, TAMIE, TRIG, LIP #### [place] [address] Linux Administrator: Bunny Moy MD NRBC Automated 0.0 per [address] [facility] Comment on above: Performed By: #### P T, IOCAL, CBC, IPF, HARVEY, CMPX, MG, TAMIE, TRIG, LIP #### [place] [address] Linux Administrator: Bunny Moy MD Platelet mean volume (Bld) [Entitic vol] 10.6 fL Normal 8.1-13.5 [facility] Comment on above: Performed By: #### P T, IOCAL, CBC, IPF, HARVEY, CMPX, MG, TAMIE, TRIG, LIP #### [place] [address] Linux Administrator: Bunny Moy MD Platelets (Bld) [#/Vol] 150 10*3/uL Normal 138-453 [facility] Comment on above: Performed By: #### P T, IOCAL, CBC, IPF, HARVEY, CMPX, MG, TAMIE, TRIG, LIP #### [place] [address] Linux Administrator: Bunny Moy MD RBC (Bld) [#/Vol] 4.31 10*6/uL Normal 4.21-5.77 [facility] Comment on above: Performed By: #### P T, IOCAL, CBC, IPF, HARVEY, CMPX, MG, TAMIE, TRIG, LIP #### [address] [address] Linux Administrator: Bunny Moy MD WBC (Bld) [#/Vol] 10.2 10*3/uL Normal 3.5-11.3 [facility] Comment on above: Performed By: #### P T, IOCAL, CBC, IPF, HARVEY, CMPX, MG, TAMIE, TRIG, LIP #### [address] [address] Linux Administrator: Bunny Moy MD Auto Diff Performed NOT REPORTED Normal [facility] Comment on above: Performed By: #### P T, IOCAL, CBC, IPF, HARVEY, CMPX, MG, TAMIE, TRIG, LIP #### [address] [address] Linux Administrator: Bunny Moy MD Platelets (Bld) [#/Vol] NOT REPORTED Normal [facility] Comment on above: Performed By: #### P T, IOCAL, CBC, IPF, HARVEY, CMPX, MG, TAMIE, TRIG, LIP #### [address] [address] Linux Administrator: Bunny Moy MD RBC morphology finding Nom (Bld) NOT REPORTED Normal [facility] Comment on above: Performed By: #### P T, IOCAL, CBC, IPF, HARVEY, CMPX, MG, TAMIE, TRIG, LIP #### [address] [address] Linux Administrator: Bunny Moy MD WBC Morphology NOT REPORTED Normal [facility] Comment on above: Performed By: #### P T, IOCAL, CBC, IPF, HARVEY, CMPX, MG, TAMIE, TRIG, LIP #### [address] [address] Linux Administrator: Bunny Moy MD MAGNESIUMon 04-18-2019 Magnesium [Mass/Vol] 2.3 mg/dL 1.6 - 2 .6 mg/dL [facility], [place] Magnesiumon 04-18-2019 Magnesium [Mass/Vol] 2.3 mg/dL Normal 1.6-2.[address] [facility] Comment on above: Performed By: #### P T, IOCAL, CBC, IPF, HARVEY, CMPX, MG, TAMIE, TRIG, LIP #### [facility] [employer] [address] [id number] Linux Administrator: Bunny Moy MD POC Glucose Fingerstickon Glucose [Mass/Vol] 214 mg/dL High 75 - 110 mg/dL [place] Interpretation and review of laboratory results Abnormal [place] Glucose [Mass/Vol] 165 mg/dL High 75 - 110 mg/dL [place] Interpretation and review of laboratory results Abnormal [place] RENAL FUNCTION PANELon 04-18 Albumin [Mass/Vol] 2.8 g/dL Low 3.5 - 5.2 g/dL [place] Anion gap [Moles/Vol] 9 mmol/L 9 - 17 mmol/L [place] Bun/Cre Ratio NOT REPORTED [place] Calcium [Mass/Vol] 8.1 mg/dL Low 8.6 - 10. 4 mg/dL [place] Chloride [Moles/Vol] 103 mmol/L 98 - 10 7 mmol/L [place] CO2 [Moles/Vol] 24 mmol/L 20 - 31 mmol/L [place] Creatinine [Mass/Vol] 0.49 mg/dL Low 0.7 - 1.2 mg/dL [place] GFR >60 >60 mL/min [place] GFR Non- >60 >60 mL/min [place] GFR/1.73 sq M predicted among non-blacks MDRD (S/P/Bld) [Vol rate/Area] NOT REPORTED [place] GFR/1.73 sq M predicted among non-blacks MDRD (S/P/Bld) [Vol rate/Area] [place] Comment on above: Average GFR for 60-6 9 years old: 85 mL/min/1.73sq m Chronic Kidney Disease: <60 mL/min/1.73sq m Kidney failure: <15 mL/min/1.73sq m eGFR calculated using average adult body mass. Additional eGFR calculator available at: http://www.[employer]/multiple_crcl_2012.htm Glucose [Mass/Vol] 230 mg/dL High 70 - 99 mg/dL [place] Interpretation and review of laboratory results Abnormal [place] Phosphate [Mass/Vol] 3.1 mg/dL 2.5 - 4 .5 mg/dL [place] Potassium [Moles/Vol] 4.2 mmol/L 3.7 - 5.3 mmol/L [place] Sodium [Moles/Vol] 136 mmol/L 135 - 144 mmol/L [place] Urea nitrogen [Mass/Vol] 13 mg/dL 8 - 23 mg/dL [place] Renal Function Panelon 04-18 (cont.) Normal [facility] Comment on above: Result Comment: Aver age GFR for 60-69 years old: 85 mL/min/1.73sq m Chronic Kidney Disease: <60 mL/min/1.73sq m Kidney failure: <15 mL/min/1.73sq m eGFR calculated using average adult body mass. Additional eGFR calculator available at: http://www.[employer]/multiple_crcl_2012.htm Performed By: #### P T, IOCAL, CBC, IPF, HARVEY, CMPX, MG, TAMIE, TRIG, LIP #### [employer] [address] [place] [id number] Linux Administrator: Bunny Moy MD Albumin [Mass/Vol] 2.8 g/dL Low 3.5-5.2 [facility] Comment on above: Performed By: #### P T, IOCAL, CBC, IPF, HARVEY, CMPX, MG, TAMIE, TRIG, LIP #### [employer] [address] [place] [id number] Linux Administrator: Bunny Moy MD Anion gap [Moles/Vol] 9 mmol/L Normal - [facility] Comment on above: Performed By: #### P T, IOCAL, CBC, IPF, HARVEY, CMPX, MG, TAMIE, TRIG, LIP #### [address] [address] Linux Administrator: Bunny Moy MD Calcium [Mass/Vol] 8.1 mg/dL Low 8.6-10.4 [facility] Comment on above: Performed By: #### P T, IOCAL, CBC, IPF, HARVEY, CMPX, MG, TAMIE, TRIG, LIP #### [address] [address] Linux Administrator: Bunny Moy MD Chloride [Moles/Vol] 103 mmol/L Normal 98-[address] [facility] Comment on above: Performed By: #### P T, IOCAL, CBC, IPF, HARVEY, CMPX, MG, TAMIE, TRIG, LIP #### [address] [address] Linux Administrator: Bunny Moy MD CO2 [Moles/Vol] 24 mmol/L Normal 20-31 [facility] Comment on above: Performed By: #### P T, IOCAL, CBC, IPF, HARVEY, CMPX, MG, TAMIE, TRIG, LIP #### [address] [address] Linux Administrator: Bunny Moy MD Creatinine [Mass/Vol] 0.49 mg/dL Low 0.70-1.20 [facility] Comment on above: Performed By: #### P T, IOCAL, CBC, IPF, HARVEY, CMPX, MG, TAMIE, TRIG, LIP #### [address] [address] Linux Administrator: Bunny Moy MD GFR, Amer >60 Normal >60 [facility] Comment on above: Performed By: #### P T, IOCAL, CBC, IPF, HARVEY, CMPX, MG, TAMIE, TRIG, LIP #### [address] [phone] Linux Administrator: Bunny Moy MD GFR,non Amer >60 Normal >[address] [facility] Comment on above: Performed By: #### P T, IOCAL, CBC, IPF, HARVEY, CMPX, MG, TAMIE, TRIG, LIP #### [address] [address] Linux Administrator: Bunny Moy MD Glucose [Mass/Vol] 230 mg/dL High 70-99 [facility] Comment on above: Performed By: #### P T, IOCAL, CBC, IPF, HARVEY, CMPX, MG, TAMIE, TRIG, LIP #### [address] [address] Linux Administrator: Bunny Moy MD Phosphorus, Inorg. 3.1 mg/dL Normal 2.5-4.5 [facility] Comment on above: Performed By: #### P T, IOCAL, CBC, IPF, HARVEY, CMPX, MG, TAMIE, TRIG, LIP #### [address] [address] Linux Administrator: Bunny Moy MD Potassium [Moles/Vol] 4.2 mmol/L Normal 3.7-5.3 [facility] Comment on above: Performed By: #### P T, IOCAL, CBC, IPF, HARVEY, CMPX, MG, TAMIE, TRIG, LIP #### [address] [address] Linux Administrator: Bunny Moy MD Sodium [Moles/Vol] 136 mmol/L Normal 135-144 [facility] Comment on above: Performed By: #### P T, IOCAL, CBC, IPF, HARVEY, CMPX, MG, TAMIE, TRIG, LIP #### [address] [address] Linux Administrator: Bunny Moy MD Urea nitrogen [Mass/Vol] 13 mg/dL Normal 8-23 [facility] Comment on above: Performed By: #### P T, IOCAL, CBC, IPF, HARVEY, CMPX, MG, TAMIE, TRIG, LIP #### [address] [phone] Linux Administrator: Bunny Moy MD BUN/CRE Ratio NOT REPORTED Normal 9-20 [facility] Comment on above: Performed By: #### P T, IOCAL, CBC, IPF, HARVEY, CMPX, MG, TAMIE, TRIG, LIP #### [address] [phone] Linux Administrator: Bunny Moy MD Staging: NOT REPORTED Normal [facility] Comment on above: Performed By: #### P T, IOCAL, CBC, IPF, HARVEY, CMPX, MG, TAMIE, TRIG, LIP #### [address] [phone] Linux Administrator: Bunny Moy MD APTTon 04-17-2019 aPTT Coag (Bld) [Time] 24.1 s Normal 20.5-30.5 [facility] Comment on above: Performed By: #### P T, IOCAL, CBC, IPF, HARVEY, CMPX, MG, TAMIE, TRIG, LIP #### [address] [phone] Linux Administrator: Bunny Moy MD aPTT Coag (Bld) [Time] 24.1 s [place], [place] Amylaseon 04-17-2019 Amylase [Catalytic activity/Vol] 87 U/L Normal 28-100 [facility] Comment on above: Performed By: #### P T, IOCAL, CBC, IPF, HARVEY, CMPX, MG, TAMIE, TRIG, LIP #### [address] [phone] Linux Administrator: Bunny Moy MD Lipaseon 04-17-2019 Lipase [Catalytic activity/Vol] 140 U/L High 13-60 [facility] Comment on above: Performed By: #### P T, IOCAL, CBC, IPF, HARVEY, CMPX, MG, TAMIE, TRIG, LIP #### [address] [address] Linux Administrator: Bunny Moy MD Liver Profileon 04-17-2019 Albumin [Mass/Vol] 2.7 g/dL Low 3.5-5.2 [facility] Comment on above: Performed By: #### P T, IOCAL, CBC, IPF, HARVEY, CMPX, MG, TAMIE, TRIG, LIP #### [facility] [address] [place] [phone] Linux Administrator: Bunny Moy MD Albumin/Globulin [Mass ratio] 0.8 {ratio} Low 1.0-2.5 [facility] Comment on above: Performed By: #### P T, IOCAL, CBC, IPF, HARVEY, CMPX, MG, TAMIE, TRIG, LIP #### [address] [address] Linux Administrator: Bunny Moy MD Alkaline Phos 69 U/L Normal 40-129 [facility] Comment on above: Performed By: #### P T, IOCAL, CBC, IPF, HARVEY, CMPX, MG, TAMIE, TRIG, LIP #### [address] [address] Linux Administrator: Bunny Moy MD ALT [Catalytic activity/Vol] 44 U/L High 5-41 [facility] Comment on above: Performed By: #### P T, IOCAL, CBC, IPF, HARVEY, CMPX, MG, TAMIE, TRIG, LIP #### [address] [address] Linux Administrator: Bunny Moy MD AST [Catalytic activity/Vol] 24 U/L Normal <40 [facility] Comment on above: Performed By: #### P T, IOCAL, CBC, IPF, HARVEY, CMPX, MG, TAMIE, TRIG, LIP #### [address], [place] [phone] Linux Administrator: Bunny Moy MD Bilirubin Ql (U) 1.05 mg/dL Normal 0.3-1.2 [facility] Comment on above: Performed By: #### P T, IOCAL, CBC, IPF, HARVEY, CMPX, MG, TAMIE, TRIG, LIP #### [address] [phone] Linux Administrator: Bunny Moy MD Bilirubin, Indirect 0.64 mg/dL Normal 0.00-1.00 [facility] Comment on above: Performed By: #### P T, IOCAL, CBC, IPF, HARVEY, CMPX, MG, TAMIE, TRIG, LIP #### [address] [phone] Linux Administrator: Bunny Moy MD Bilirubin.direct [Mass/Vol] 0.41 mg/dL High <0.31 [facility] Comment on above: Performed By: #### P T, IOCAL, CBC, IPF, HARVEY, CMPX, MG, TAMIE, TRIG, LIP #### [address] [address] Linux Administrator: Bunny Moy MD Protein [Mass/Vol] 6.2 g/dL Low 6.4-8.3 [facility] Comment on above: Performed By: #### P T, IOCAL, CBC, IPF, HARVEY, CMPX, MG, TAMIE, TRIG, LIP #### [address] [phone] Linux Administrator: Bunny Moy MD POC Glucose Fingerstickon Glucose [Mass/Vol] 225 mg/dL High 75 - 110 mg/dL [place] Interpretation and review of laboratory results Abnormal [place] Glucose [Mass/Vol] 227 mg/dL High 75 - 110 mg/dL [place] Interpretation and review of laboratory results Abnormal [place] Glucose [Mass/Vol] 166 mg/dL High 75 - 110 mg/dL [place] Interpretation and review of laboratory results Abnormal [place] Glucose [Mass/Vol] 132 mg/dL High 75 - 110 mg/dL [place] Interpretation and review of laboratory results Abnormal [place] Glucose [Mass/Vol] 123 mg/dL High 75 - 110 mg/dL [place] Interpretation and review of laboratory results Abnormal [place] PROTIME-INRon 04-17-2019 INR Coag (PPP) [Relative time] 1.1 {INR} [place] Comment on above: Therapeutic Range: Moderate Anticoagulant Intensity: INR = 2.0-3.0 High Anticoagulant Intensity: INR = 2.5-3.5 PT Coag (PPP) [Time] 11.7 s [place] PTon 04-17-2019 INR Coag (PPP) [Relative time] 1.1 {INR} Normal [facility] Comment on above: Result Comment: Therapeutic Range: Moderate Anticoagulant Intensity: INR = 2.0-3.0 High Anticoagulant Intensity: INR = 2.5-3.5 Performed By: #### P T, IOCAL, CBC, IPF, HARVEY, CMPX, MG, TAMIE, TRIG, LIP #### [employer] [address] [place] [phone] Linux Administrator: Bunny Moy MD PT Coag (PPP) [Time] 11.7 s Normal 9.0-12.[address] [facility] Comment on above: Performed By: #### P T, IOCAL, CBC, IPF, HARVEY, CMPX, MG, TAMIE, TRIG, LIP #### [employer] [address] [place] [phone] Linux Administrator: Bunny Moy MD Surgical Pathologyon 019 Surgical Pathology (NOTE) [id number] [facility] [id number] [facility] ANATOMIC PATHOLOGY [address] [place] [id number] SURGICAL PATHOLOGY CONSULTATION Patient Name: CARDONAPATY Abdi Med Rec: [id number] Path Number: [id number] Collected: 04/17/2019 Received: 04/17/2019 Reported: 04/18/2019 16:10 [...] is pink-ricci and focally flattened and granular. Baler sections 1cs with margin inked black. tm Microscopic Description Microscopic examination performed. Normal [facility] Comment on above: Performed By: #### P T, IOCAL, CBC, IPF, HARVEY, CMPX, MG, TAMIE, TRIG, LIP #### [facility] [employer] [address] [place] [address] Linux Administrator: Bunny Moy MD Amylaseon 04-16-2019 Amylase [Catalytic activity/Vol] 87 U/L 28 - 100 U/L [place] CBC Auto Differentialon 04-02 Basophils (Bld) [#/Vol] 0.07 10*3/uL [place] Basophils/100 WBC (Bld) 1 % 0 - 2 % [place] Differential Type NOT REPORTED [place] Eosinophils (Bld) [#/Vol] 0.24 10*3/uL [place] Eosinophils/100 WBC (Bld) 3 % 1 - 4 % [place] Erythrocyte distribution width (RBC) [Ratio] 12.6 % 11.8 - 14.4 % [place] Hematocrit (Bld) [Volume fraction] 42.9 % 40.7 - 50.3 % [place] Hemoglobin (Bld) [Mass/Vol] 14.1 g/dL 13 - 17 g/dL [place] Immature granulocytes (Bld) [#/Vol] 3 % High 0 [place] Immature granulocytes (Bld) [#/Vol] 0.27 10*3/uL [place] Interpretation and review of laboratory results Abnormal [place] Lymphocytes (Bld) [#/Vol] 0.81 10*3/uL Low [place] Lymphocytes/100 WBC (Bld) 9 % Low 24 - 43 % [place] MCH (RBC) [Entitic mass] 31.3 pg 25.2 - 33.5 pg [place] MCHC (RBC) [Mass/Vol] 32.9 g/dL 28.4 - 34.8 g/dL [place] MCV (RBC) [Entitic vol] 95.3 fL 82.6 - 102.9 fL [place] Monocytes (Bld) [#/Vol] 1.27 10*3/uL High [place] Monocytes/100 WBC (Bld) 13 % High 3 - 12 % [place] Platelet mean volume (Bld) [Entitic vol] NOT REPORTED 8.1 - 13.5 fL [place] Platelets (Bld) [#/Vol] See Reflexed IPF Result [place] Platelets (Bld) [#/Vol] NOT REPORTED [place] RBC (Bld) [#/Vol] 4.50 10*6/uL 4.21 - 5.77 m/uL [place] RBC morphology finding Nom (Bld) NOT REPORTED [place] Segmented neutrophils/100 WBC (Bld) 72 % High 36 - 65 % [place] Segs Absolute 6.81 [place] WBC (Bld) [#/Vol] 9.5 10*3/uL [place] WBC (Bld) [#/Vol] 0.0 10*3/uL 0.0 per 100 WBC [place] WBC Morphology NOT REPORTED [place] CBC with Diffon 04-16-2019 Abs. Basophil 0.07 k/uL Normal 0.00-0.20 [facility] Comment on above: Performed By: #### P T, IOCAL, CBC, IPF, HARVEY, CMPX, MG, TAMIE, TRIG, LIP #### [address] [phone] Linux Administrator: Bunny Moy MD Abs.Imm.Granulocyte 0.27 k/uL Normal 0.00-0.30 [facility] Comment on above: Performed By: #### P T, IOCAL, CBC, IPF, HARVEY, CMPX, MG, TAMIE, TRIG, LIP #### [address] [address] Linux Administrator: Bunny Moy MD Abs.Neutrophil (Seg) 6.81 k/uL Normal 1.50-8.[address] [facility] Comment on above: Performed By: #### P T, IOCAL, CBC, IPF, HARVEY, CMPX, MG, TAMIE, TRIG, LIP #### [address] [address] Linux Administrator: Bunny Moy MD Basophils/100 WBC (Bld) 1 % Normal 0-2 [facility] Comment on above: Performed By: #### P T, IOCAL, CBC, IPF, HARVEY, CMPX, MG, TAMIE, TRIG, LIP #### [address] [address] Linux Administrator: Bunny Moy MD Eosinophils (Bld) [#/Vol] 0.24 10*3/uL Normal 0.00-0.44 [facility] Comment on above: Performed By: #### P T, IOCAL, CBC, IPF, HARVEY, CMPX, MG, TAMIE, TRIG, LIP #### [address] [phone] Linux Administrator: Bunny Moy MD Eosinophils/100 WBC (Bld) 3 % Normal 1-4 [facility] Comment on above: Performed By: #### P T, IOCAL, CBC, IPF, HARVEY, CMPX, MG, TAMIE, TRIG, LIP #### [address] [address] Linux Administrator: Bunny Moy MD Erythrocyte distribution width (RBC) [Ratio] 12.6 % Normal 11.8-14.4 [facility] Comment on above: Performed By: #### P T, IOCAL, CBC, IPF, HARVEY, CMPX, MG, TAMIE, TRIG, LIP #### [place] [address] Linux Administrator: Bunny Moy MD Hematocrit (Bld) [Volume fraction] 42.9 % Normal 40.7-50.3 [facility] Comment on above: Performed By: #### P T, IOCAL, CBC, IPF, HARVEY, CMPX, MG, TAMIE, TRIG, LIP #### [place] [address] Linux Administrator: Bunny Moy MD Hemoglobin (Bld) [Mass/Vol] 14.1 g/dL Normal 13.0-17.0 [facility] Comment on above: Performed By: #### P T, IOCAL, CBC, IPF, HARVEY, CMPX, MG, TAMIE, TRIG, LIP #### [address] [address] Linux Administrator: Bunny Moy MD Immature granulocytes (Bld) [#/Vol] 3 % High 0 [facility] Comment on above: Performed By: #### P T, IOCAL, CBC, IPF, HARVEY, CMPX, MG, TAMIE, TRIG, LIP #### [address] [phone] Linux Administrator: Bunny Moy MD Lymphocytes (Bld) [#/Vol] 0.81 10*3/uL Low 1.10-3.70 [facility] Comment on above: Performed By: #### P T, IOCAL, CBC, IPF, HARVEY, CMPX, MG, TAMIE, TRIG, LIP #### [address] [address] Linux Administrator: Bunny Moy MD Lymphocytes/100 WBC (Bld) 9 % Low 24-43 [facility] Comment on above: Performed By: #### P T, IOCAL, CBC, IPF, HARVEY, CMPX, MG, TAMIE, TRIG, LIP #### [address] [address] Linux Administrator: Bunny Moy MD MCH (RBC) [Entitic mass] 31.3 pg Normal 25.2-33.5 [facility] Comment on above: Performed By: #### P T, IOCAL, CBC, IPF, HARVEY, CMPX, MG, TAMIE, TRIG, LIP #### [address] [address] Linux Administrator: Bunny Moy MD MCHC (RBC) [Mass/Vol] 32.9 g/dL Normal 28.4-34.8 [facility] Comment on above: Performed By: #### P T, IOCAL, CBC, IPF, HARVEY, CMPX, MG, TAMIE, TRIG, LIP #### [address] [address] Linux Administrator: Bunny Moy MD MCV (RBC) [Entitic vol] 95.3 fL Normal 82.6-102.9 M [facility] Comment on above: Performed By: #### P T, IOCAL, CBC, IPF, HARVEY, CMPX, MG, TAMIE, TRIG, LIP #### [address] [address] Linux Administrator: Bunny Moy MD Monocytes (Bld) [#/Vol] 1.27 10*3/uL High 0.10-1.20 [facility] Comment on above: Performed By: #### P T, IOCAL, CBC, IPF, HARVEY, CMPX, MG, TAMIE, TRIG, LIP #### [address] [address] Linux Administrator: Bunny Moy MD Monocytes/100 WBC (Bld) 13 % High 3-12 M [facility] Comment on above: Performed By: #### P T, IOCAL, CBC, IPF, HARVEY, CMPX, MG, TAMIE, TRIG, LIP #### [place] [address] Linux Administrator: Bunny Moy MD Neutrophil (Seg) 72 % High 36-65 [facility] Comment on above: Performed By: #### P T, IOCAL, CBC, IPF, HARVEY, CMPX, MG, TAMIE, TRIG, LIP #### [place] [address] Linux Administrator: Bunny Moy MD NRBC Automated 0.0 per [address] [facility] Comment on above: Performed By: #### P T, IOCAL, CBC, IPF, HARVEY, CMPX, MG, TAMIE, TRIG, LIP #### [place] [address] Linux Administrator: Bunny Moy MD Platelets (Bld) [#/Vol] See Reflexed IPF Result Normal 138-453 [facility] Comment on above: Performed By: #### P T, IOCAL, CBC, IPF, HARVEY, CMPX, MG, TAMIE, TRIG, LIP #### [address] [address] Linux Administrator: Bunny Moy MD RBC (Bld) [#/Vol] 4.50 10*6/uL Normal 4.21-5.77 [facility] Comment on above: Performed By: #### P T, IOCAL, CBC, IPF, HARVEY, CMPX, MG, TAMIE, TRIG, LIP #### [address] [address] Linux Administrator: Bunny Moy MD WBC (Bld) [#/Vol] 9.5 10*3/uL Normal 3.5-11.3 [facility] Comment on above: Performed By: #### P T, IOCAL, CBC, IPF, HARVEY, CMPX, MG, TAMIE, TRIG, LIP #### [facility] [address] [place] [address] Linux Administrator: Bunny Moy MD Auto Diff Performed NOT REPORTED Normal [facility] Comment on above: Performed By: #### P T, IOCAL, CBC, IPF, HARVEY, CMPX, MG, TAMIE, TRIG, LIP #### [place] [address] Linux Administrator: Bunny Moy MD Platelet mean volume (Bld) [Entitic vol] NOT REPORTED Normal 8.1-13.5 [facility] Comment on above: Performed By: #### P T, IOCAL, CBC, IPF, HARVEY, CMPX, MG, TAMIE, TRIG, LIP #### [address] [address] Linux Administrator: Bunny Moy MD Platelets (Bld) [#/Vol] NOT REPORTED Normal [facility] Comment on above: Performed By: #### P T, IOCAL, CBC, IPF, HARVEY, CMPX, MG, TAMIE, TRIG, LIP #### [address] [address] Linux Administrator: Bunny Moy MD RBC morphology finding Nom (Bld) NOT REPORTED Normal [facility] Comment on above: Performed By: #### P T, IOCAL, CBC, IPF, HARVEY, CMPX, MG, TAMIE, TRIG, LIP #### [address] [phone] Linux Administrator: Bunny Moy MD WBC Morphology NOT REPORTED Normal [facility] Comment on above: Performed By: #### P T, IOCAL, CBC, IPF, HARVEY, CMPX, MG, TAMIE, TRIG, LIP #### [facility] [address] [place], [place] [phone] Linux Administrator: Bunny Moy MD Hepatic Function Panelon Albumin [Mass/Vol] 2.7 g/dL Low 3.5 - 5.2 g/dL [place] Albumin/Globulin [Mass ratio] 0.8 {ratio} Low [place] ALP [Catalytic activity/Vol] 69 U/L 40 - 129 U/L [place] ALT [Catalytic activity/Vol] 44 U/L High 5 - 41 U/L [place] AST [Catalytic activity/Vol] 24 U/L <40 [place] Bilirubin Ql (U) 1.05 mg/dL 0.3 - 1.2 mg/dL [place] Bilirubin, Indirect 0.64 mg/dL 0 - 1 mg/dL [place] Bilirubin.direct [Mass/Vol] 0.41 mg/dL High <0.31 [place] Globulin (S) [Mass/Vol] NOT REPORTED 1.5 - 3.8 g/dL [place] Protein [Mass/Vol] 6.2 g/dL Low 6.4 - 8.3 g/dL [place] Immature Platelet Fractionon 04-16-2019 Interpretation and review of laboratory results Abnormal [place] Platelet, Fluorescence [address] [place], [place] Comment on above: ORDERED BY LAB Platelet, Immature Fraction 2.9 % 1.1 - 10.3 % [place] Comment on above: ORDERED BY LAB Lipaseon 04-16-2019 Lipase [Catalytic activity/Vol] 140 U/L High 13 - 60 U/L [place] Liver Profileon 04-16-2019 Globulin (S) [Mass/Vol] NOT REPORTED Normal 1.5-3.8 [facility] Comment on above: Performed By: #### P T, IOCAL, CBC, IPF, HARVEY, CMPX, MG, TAMIE, TRIG, LIP #### [facility] [employer] [address] [place] [phone] Linux Administrator: Bunny Moy MD MAGNESIUMon 04-16-2019 Magnesium [Mass/Vol] 2.2 mg/dL 1.6 - 2 .6 mg/dL [place] Magnesiumon 04-16-2019 Magnesium [Mass/Vol] 2.2 mg/dL Normal 1.6-2.[address] [facility] Comment on above: Performed By: #### P T, IOCAL, CBC, IPF, HARVEY, CMPX, MG, TAMIE, TRIG, LIP #### [address] [address] Linux Administrator: Bunny Moy MD Otheron 04-16-2019 Interpretation and review of laboratory results Abnormal [place] PLT, Immature Fract.on 04-16 Platelet, Fluoresc. 125 k/uL Low 138-453 [facility] Comment on above: Result Comment: ORDE RED BY LAB Performed By: #### P T, IOCAL, CBC, IPF, HARVEY, CMPX, MG, TAMIE, TRIG, LIP #### [address] [address] Linux Administrator: Bunny Moy MD PLT, Immature Fract. 2.9 % Normal 1.1-10.[address] [facility] Comment on above: Result Comment: ORDE RED BY LAB Performed By: #### P T, IOCAL, CBC, IPF, HARVEY, CMPX, MG, TAMIE, TRIG, LIP #### [facility] [employer] [address] [place] [phone] Linux Administrator: Bunny Moy MD POC Glucose Fingerstickon Glucose [Mass/Vol] 138 mg/dL High 75 - 110 mg/dL [place] Interpretation and review of laboratory results Abnormal [place] Glucose [Mass/Vol] 109 mg/dL 75 - 110 mg/dL [place] Glucose [Mass/Vol] 167 mg/dL High 75 - 110 mg/dL [place] Interpretation and review of laboratory results Abnormal [place] Glucose [Mass/Vol] 102 mg/dL 75 - 110 mg/dL [place] RENAL FUNCTION PANELon 04-16 Albumin [Mass/Vol] 2.8 g/dL Low 3.5 - 5.2 g/dL [place] Anion gap [Moles/Vol] 13 mmol/L 9 - 17 mmol/L [place] Bun/Cre Ratio NOT REPORTED [place] Calcium [Mass/Vol] 8.4 mg/dL Low 8.6 - 10. 4 mg/dL [place] Chloride [Moles/Vol] 101 mmol/L 98 - 10 7 mmol/L [place] CO2 [Moles/Vol] 22 mmol/L 20 - 31 mmol/L [place] Creatinine [Mass/Vol] 0.54 mg/dL Low 0.7 - 1.2 mg/dL [place] GFR >60 >60 mL/min [place] GFR Non- >60 >60 mL/min [place] GFR/1.73 sq M predicted among non-blacks MDRD (S/P/Bld) [Vol rate/Area] NOT REPORTED [place] GFR/1.73 sq M predicted among non-blacks MDRD (S/P/Bld) [Vol rate/Area] [place] Comment on above: Average GFR for 60-6 9 years old: 85 mL/min/1.73sq m Chronic Kidney Disease: <60 mL/min/1.73sq m Kidney failure: <15 mL/min/1.73sq m eGFR calculated using average adult body mass. Additional eGFR calculator available at: http://www.SitatByoot.com.Propagenix/multiple_crcl_2012.htm Glucose [Mass/Vol] 118 mg/dL High 70 - 99 mg/dL [place] Interpretation and review of laboratory results Abnormal [place] Phosphate [Mass/Vol] 3.0 mg/dL 2.5 - 4 .5 mg/dL [place] Potassium [Moles/Vol] 3.9 mmol/L 3.7 - 5.3 mmol/L [place] Sodium [Moles/Vol] 136 mmol/L 135 - 144 mmol/L [place] Urea nitrogen [Mass/Vol] 10 mg/dL 8 - 23 mg/dL [place], [place] Renal Function Panelon 04-16 (cont.) Normal [facility] Comment on above: Result Comment: Aver age GFR for 60-69 years old: 85 mL/min/1.73sq m Chronic Kidney Disease: <60 mL/min/1.73sq m Kidney failure: <15 mL/min/1.73sq m eGFR calculated using average adult body mass. Additional eGFR calculator available at: http://www.WeStore/multiple_crcl_2011.htm Performed By: #### P T, IOCAL, CBC, IPF, HARVEY, CMPX, MG, TAMIE, TRIG, LIP #### [employer] [address] [place] [phone] Linux Administrator: Bunny Moy MD Albumin [Mass/Vol] 2.8 g/dL Low 3.5-5.2 [facility] Comment on above: Performed By: #### P T, IOCAL, CBC, IPF, HARVEY, CMPX, MG, TAMIE, TRIG, LIP #### [facility] [employer] [address] [place] [address] [phone] Linux Administrator: Bunny Moy MD Anion gap [Moles/Vol] 13 mmol/L Normal 9-17 [facility] Comment on above: Performed By: #### P T, IOCAL, CBC, IPF, HARVEY, CMPX, MG, TAMIE, TRIG, LIP #### [facility] [employer] [address] [place] [address] [phone] Linux Administrator: Bunny Moy MD Calcium [Mass/Vol] 8.4 mg/dL Low 8.6-10.4 [facility] Comment on above: Performed By: #### P T, IOCAL, CBC, IPF, HARVEY, CMPX, MG, TAMIE, TRIG, LIP #### [address] [address] Linux Administrator: Bunny Moy MD Chloride [Moles/Vol] 101 mmol/L Normal 98-[address] [facility] Comment on above: Performed By: #### P T, IOCAL, CBC, IPF, HARVEY, CMPX, MG, TAMIE, TRIG, LIP #### [address] [address] Linux Administrator: Bunny Moy MD CO2 [Moles/Vol] 22 mmol/L Normal 20-31 [facility] Comment on above: Performed By: #### P T, IOCAL, CBC, IPF, HARVEY, CMPX, MG, TAMIE, TRIG, LIP #### [place] [address] Linux Administrator: Bunny Moy MD Creatinine [Mass/Vol] 0.54 mg/dL Low 0.70-1.20 [facility] Comment on above: Performed By: #### P T, IOCAL, CBC, IPF, HARVEY, CMPX, MG, TAMIE, TRIG, LIP #### [facility] [employer] [address] [place] [address] Linux Administrator: Bunny Moy MD GFR, Amer >60 Normal >60 [facility] Comment on above: Performed By: #### P T, IOCAL, CBC, IPF, HARVEY, CMPX, MG, TAMIE, TRIG, LIP #### [facility] [employer] [address] [place] [address] Linux Administrator: Bunny Moy MD GFR,non Amer >60 Normal >[address] [facility] Comment on above: Performed By: #### P T, IOCAL, CBC, IPF, HARVEY, CMPX, MG, TAMIE, TRIG, LIP #### [facility] [employer] [address] [place] [phone] Linux Administrator: Bunny Moy MD Glucose [Mass/Vol] 118 mg/dL High 70-99 [facility] Comment on above: Performed By: #### P T, IOCAL, CBC, IPF, HARVEY, CMPX, MG, TAMIE, TRIG, LIP #### [address] [address] Linux Administrator: Bunny Moy MD Phosphorus, Inorg. 3.0 mg/dL Normal 2.5-4.5 [facility] Comment on above: Performed By: #### P T, IOCAL, CBC, IPF, HARVEY, CMPX, MG, TAMIE, TRIG, LIP #### [address] [address] Linux Administrator: Bunny Moy MD Potassium [Moles/Vol] 3.9 mmol/L Normal 3.7-5.3 [facility] Comment on above: Performed By: #### P T, IOCAL, CBC, IPF, HARVEY, CMPX, MG, TAMIE, TRIG, LIP #### [address] [address] Linux Administrator: Bunny Moy MD Sodium [Moles/Vol] 136 mmol/L Normal 135-144 [facility] Comment on above: Performed By: #### P T, IOCAL, CBC, IPF, HARVEY, CMPX, MG, TAMIE, TRIG, LIP #### [facility] [employer] [address] [place] [phone] Linux Administrator: Bunny Moy MD Urea nitrogen [Mass/Vol] 10 mg/dL Normal 8-23 [facility] Comment on above: Performed By: #### P T, IOCAL, CBC, IPF, HARVEY, CMPX, MG, TAMIE, TRIG, LIP #### [address] [address] Linux Administrator: Bunny Moy MD BUN/CRE Ratio NOT REPORTED Normal - [facility] Comment on above: Performed By: #### P T, IOCAL, CBC, IPF, HARVEY, CMPX, MG, TAMIE, TRIG, LIP #### [facility] [address] [place] [address] Linux Administrator: Bunny Moy MD Staging: NOT REPORTED Normal [facility] Comment on above: Performed By: #### P T, IOCAL, CBC, IPF, HARVEY, CMPX, MG, TAMIE, TRIG, LIP #### [facility] [address] [place] [address] Linux Administrator: Bunny Moy MD Amylaseon 04-15-2019 Amylase [Catalytic activity/Vol] 143 U/L High 28-100 [facility] Comment on above: Performed By: #### C BC, IPF, IOCAL, HARVEY, LIP, TAMIE, CPBILC ####[facility] [id number] [place] [address] Lab Director: Bunny Moy MD Amylase [Catalytic activity/Vol] 143 U/L High 28 - 100 U/L [place] CBCon 04-15-2019 Erythrocyte distribution width (RBC) [Ratio] 12.4 % Normal 11.8-14.4 [facility] Comment on above: Performed By: #### C BC, IPF, IOCAL, HARVEY, LIP, TAMIE, CPBILC ####[facility] [id number] [place] [address] Lab Director: Bunny Moy MD Hematocrit (Bld) [Volume fraction] 41.9 % Normal 40.7-50.3 [facility] Comment on above: Performed By: #### C BC, IPF, IOCAL, HARVEY, LIP, TAMIE, CPBILC ####[facility] [id number] [place] [address] Lab Director: Bunny Moy MD Hemoglobin (Bld) [Mass/Vol] 13.7 g/dL Normal 13.0-17.0 [facility] Comment on above: Performed By: #### C BC, IPF, IOCAL, HARVEY, LIP, TAMIE, CPBILC ####[id number] [place], [place] [phone] Director: Bunny Moy MD MCH (RBC) [Entitic mass] 31.2 pg Normal 25.2-33.5 [facility] Comment on above: Performed By: #### C BC, IPF, IOCAL, HARVEY, LIP, TAMIE, CPBILC ####[address] [phone] Director: Bunny Moy MD MCHC (RBC) [Mass/Vol] 32.7 g/dL Normal 28.4-34.8 [facility] Comment on above: Performed By: #### C BC, IPF, IOCAL, HARVEY, LIP, TAMIE, CPBILC ####[address] [phone] Director: Bunny Moy MD MCV (RBC) [Entitic vol] 95.4 fL Normal 82.6-102.9 [facility] Comment on above: Performed By: #### C BC, IPF, IOCAL, HARVEY, LIP, TAMIE, CPBILC ####[address] [phone] Director: Bunny Moy MD NRBC Automated 0.0 per [address] [facility] Comment on above: Performed By: #### C BC, IPF, IOCAL, HARVEY, LIP, TAMIE, CPBILC ####[id number] [place], [place] [phone] Director: Bunny Moy MD Platelets (Bld) [#/Vol] See Reflexed IPF Result Normal 138-453 [facility] Comment on above: Performed By: #### C BC, IPF, IOCAL, HARVEY, LIP, TAMIE, CPBILC ####[facility] [id number] [place] [address] Lab Director: Bunny Moy MD RBC (Bld) [#/Vol] 4.39 10*6/uL Normal 4.21-5.77 [facility] Comment on above: Performed By: #### C BC, IPF, IOCAL, HARVEY, LIP, TAMIE, CPBILC ####[facility] [id number] [place] [address] Lab Director: Bunny Moy MD WBC (Bld) [#/Vol] 10.0 10*3/uL Normal 3.5-11.3 [facility] Comment on above: Performed By: #### C BC, IPF, IOCAL, HARVEY, LIP, TAMIE, CPBILC ####[facility] [id number] [place] [address] Lab Director: Bunny Moy MD Platelet mean volume (Bld) [Entitic vol] NOT REPORTED Normal 8.1-13.5 [facility] Comment on above: Performed By: #### C BC, IPF, IOCAL, HARVEY, LIP, TAMIE, CPBILC ####[facility] [id number] [place] [address] Lab Director: Bunny Moy MD Erythrocyte distribution width (RBC) [Ratio] 12.4 % 11.8 - 14.4 % [place], [place] Hematocrit (Bld) [Volume fraction] 41.9 % 40.7 - 50.3 % [place] Hemoglobin (Bld) [Mass/Vol] 13.7 g/dL 13 - 17 g/dL [place] MCH (RBC) [Entitic mass] 31.2 pg 25.2 - 33.5 pg [place] MCHC (RBC) [Mass/Vol] 32.7 g/dL 28.4 - 34.8 g/dL [place] MCV (RBC) [Entitic vol] 95.4 fL 82.6 - 102.9 fL [place] Platelet mean volume (Bld) [Entitic vol] NOT REPORTED 8.1 - 13.5 fL [place] Platelets (Bld) [#/Vol] See Reflexed IPF Result [place] RBC (Bld) [#/Vol] 4.39 10*6/uL 4.21 - 5.77 m/uL [place] WBC (Bld) [#/Vol] 10.0 10*3/uL [place] WBC (Bld) [#/Vol] 0.0 10*3/uL 0.0 per 100 WBC [place] Calcium, Ionicon 04-15-2019 Calcium [Mass/Vol] 1.03 mmol/L Low 1.13-1.33 [facility] Comment on above: Performed By: #### C BC, IPF, IOCAL, HARVEY, LIP, TAMIE, CPBILC ####[address] [place] [address] Lab Director: Bunny Moy MD Calcium, Ionizedon 9 Calcium [Mass/Vol] 1.03 mmol/L Low 1.13 - 1.33 mmol/L [place] Interpretation and review of laboratory results Abnormal [place], [place] Comp Metab w/Bili Pron 04-15 (cont.) Normal [facility] Comment on above: Result Comment: Aver age GFR for 60-69 years old: 85 mL/min/1.73sq m Chronic Kidney Disease: <60 mL/min/1.73sq m Kidney failure: <15 mL/min/1.73sq m eGFR calculated using average adult body mass. Additional eGFR calculator available at: http://www.SitatByoot.com.com/multiple_crcl_2012.htm Performed By: #### P T, IOCAL, CBC, IPF, HARVEY, CMPX, MG, TAMIE, TRIG, LIP #### [address] [place] [address] Linux Administrator: Bunny Moy MD Albumin [Mass/Vol] 2.7 g/dL Low 3.5-5.2 [facility] Comment on above: Performed By: #### P T, IOCAL, CBC, IPF, HARVEY, CMPX, MG, TAMIE, TRIG, LIP #### [place] [address] Linux Administrator: Bunny Moy MD Albumin/Globulin [Mass ratio] 0.9 {ratio} Low 1.0-2.5 [facility] Comment on above: Performed By: #### P T, IOCAL, CBC, IPF, HARVEY, CMPX, MG, TAMIE, TRIG, LIP #### [place] [address] Linux Administrator: Bunny Moy MD Alkaline Phos 52 U/L Normal 40-129 [facility] Comment on above: Performed By: #### P T, IOCAL, CBC, IPF, HARVEY, CMPX, MG, TAMIE, TRIG, LIP #### [place] [address] Linux Administrator: Bunny Moy MD ALT [Catalytic activity/Vol] 54 U/L High 5-41 [facility] Comment on above: Performed By: #### P T, IOCAL, CBC, IPF, HARVEY, CMPX, MG, TAMIE, TRIG, LIP #### [place] [address] Linux Administrator: Bunny Moy MD Anion gap [Moles/Vol] 10 mmol/L Normal 9-17 [facility] Comment on above: Performed By: #### P T, IOCAL, CBC, IPF, HARVEY, CMPX, MG, TAMIE, TRIG, LIP #### [place] [address] Linux Administrator: Bunny Moy MD AST [Catalytic activity/Vol] 23 U/L Normal <40 [facility] Comment on above: Performed By: #### P T, IOCAL, CBC, IPF, HARVEY, CMPX, MG, TAMIE, TRIG, LIP #### [address] [address] Linux Administrator: Bunny Moy MD Bilirubin Ql (U) 1.17 mg/dL Normal 0.3-1.2 [facility] Comment on above: Performed By: #### P T, IOCAL, CBC, IPF, HARVEY, CMPX, MG, TAMIE, TRIG, LIP #### [address] [address] Linux Administrator: Bunny Moy MD Bilirubin, Indirect 0.77 mg/dL Normal 0.00-1.00 [facility] Comment on above: Performed By: #### P T, IOCAL, CBC, IPF, HARVEY, CMPX, MG, TAMIE, TRIG, LIP #### [address] [address] Linux Administrator: Bunny Moy MD Bilirubin.direct [Mass/Vol] 0.40 mg/dL High <0.31 [facility] Comment on above: Performed By: #### P T, IOCAL, CBC, IPF, HARVEY, CMPX, MG, TAMIE, TRIG, LIP #### [address] [address] Linux Administrator: Bunny Moy MD Calcium [Mass/Vol] 8.0 mg/dL Low 8.6-10.4 [facility] Comment on above: Performed By: #### P T, IOCAL, CBC, IPF, HARVEY, CMPX, MG, TAMIE, TRIG, LIP #### [address] [address] Linux Administrator: Bunny Moy MD Chloride [Moles/Vol] 99 mmol/L Normal 98-[address] [facility] Comment on above: Performed By: #### P T, IOCAL, CBC, IPF, HARVEY, CMPX, MG, TAMIE, TRIG, LIP #### [facility] [employer] [address] [place] [address] Linux Administrator: Bunny Moy MD CO2 [Moles/Vol] 22 mmol/L Normal 20-31 [facility] Comment on above: Performed By: #### P T, IOCAL, CBC, IPF, HARVEY, CMPX, MG, TAMIE, TRIG, LIP #### [address] [phone] Linux Administrator: Bunny Moy MD Creatinine [Mass/Vol] 0.48 mg/dL Low 0.70-1.20 [facility] Comment on above: Performed By: #### P T, IOCAL, CBC, IPF, HARVEY, CMPX, MG, TAMIE, TRIG, LIP #### [address] [address] Linux Administrator: Bunny Moy MD GFR, Amer >60 Normal >60 [facility] Comment on above: Performed By: #### P T, IOCAL, CBC, IPF, HARVEY, CMPX, MG, TAMIE, TRIG, LIP #### [address] [address] Linux Administrator: Bunny Moy MD GFR,non Amer >60 Normal >[address] [facility] Comment on above: Performed By: #### P T, IOCAL, CBC, IPF, HARVEY, CMPX, MG, TAMIE, TRIG, LIP #### [address] [address] Linux Administrator: Bunny Moy MD Glucose [Mass/Vol] 128 mg/dL High 70-99 [facility] Comment on above: Performed By: #### P T, IOCAL, CBC, IPF, HARVEY, CMPX, MG, TAMIE, TRIG, LIP #### [address] [address] Linux Administrator: Bunny Moy MD Potassium [Moles/Vol] 3.9 mmol/L Normal 3.7-5.3 [facility] Comment on above: Performed By: #### P T, IOCAL, CBC, IPF, HARVEY, CMPX, MG, TAMIE, TRIG, LIP #### [facility] [employer] [address] [place] [address] Linux Administrator: Bunny Moy MD Protein [Mass/Vol] 5.7 g/dL Low 6.4-8.3 [facility] Comment on above: Performed By: #### P T, IOCAL, CBC, IPF, HARVEY, CMPX, MG, TAMIE, TRIG, LIP #### [facility] [employer] [address] [place] [address] Linux Administrator: Bunny Moy MD Sodium [Moles/Vol] 131 mmol/L Low 135-144 [facility] Comment on above: Performed By: #### P T, IOCAL, CBC, IPF, HARVEY, CMPX, MG, TAMIE, TRIG, LIP #### [facility] [employer] [address] [place] [address] Linux Administrator: Bunny Moy MD Urea nitrogen [Mass/Vol] 9 mg/dL Normal 8-23 [facility] Comment on above: Performed By: #### P T, IOCAL, CBC, IPF, HARVEY, CMPX, MG, TAMIE, TRIG, LIP #### [facility] [employer] [address] [place] [address] [phone] Linux Administrator: Bunny Moy MD Staging: NOT REPORTED Normal [facility] Comment on above: Performed By: #### P T, IOCAL, CBC, IPF, HARVEY, CMPX, MG, TAMIE, TRIG, LIP #### [address] [phone] Linux Administrator: Bunny Moy MD Comp Metabolic w Bili Profil anthony 04-15-2019 Albumin [Mass/Vol] 2.7 g/dL Low 3.5 - 5.2 g/dL [place] Albumin/Globulin [Mass ratio] 0.9 {ratio} Low [place] ALP [Catalytic activity/Vol] 52 U/L 40 - 129 U/L [place] ALT [Catalytic activity/Vol] 54 U/L High 5 - 41 U/L [place] Anion gap [Moles/Vol] 10 mmol/L 9 - 17 mmol/L [place] AST [Catalytic activity/Vol] 23 U/L <40 [place] Bilirubin Ql (U) 1.17 mg/dL 0.3 - 1.2 mg/dL [place] Bilirubin, Indirect 0.77 mg/dL 0 - 1 mg/dL [place] Bilirubin.direct [Mass/Vol] 0.40 mg/dL High <0.31 [place] Calcium [Mass/Vol] 8.0 mg/dL Low 8.6 - 10. 4 mg/dL [place] Chloride [Moles/Vol] 99 mmol/L 98 - 10 7 mmol/L [place] CO2 [Moles/Vol] 22 mmol/L 20 - 31 mmol/L [place] Creatinine [Mass/Vol] 0.48 mg/dL Low 0.7 - 1.2 mg/dL [place] GFR >60 >60 mL/min [place] GFR Non- >60 >60 mL/min [place] GFR/1.73 sq M predicted among non-blacks MDRD (S/P/Bld) [Vol rate/Area] NOT REPORTED [place] GFR/1.73 sq M predicted among non-blacks MDRD (S/P/Bld) [Vol rate/Area] [place] Comment on above: Average GFR for 60-6 9 years old: 85 mL/min/1.73sq m Chronic Kidney Disease: <60 mL/min/1.73sq m Kidney failure: <15 mL/min/1.73sq m eGFR calculated using average adult body mass. Additional eGFR calculator available at: http://www.SitatByoot.com.Propagenix/multiple_crcl_2012.htm Glucose [Mass/Vol] 128 mg/dL High 70 - 99 mg/dL [place] Interpretation and review of laboratory results Abnormal [place] Potassium [Moles/Vol] 3.9 mmol/L 3.7 - 5.3 mmol/L [place] Protein [Mass/Vol] 5.7 g/dL Low 6.4 - 8.3 g/dL [place] Sodium [Moles/Vol] 131 mmol/L Low 135 - 144 mmol/L [place], [place] Urea nitrogen [Mass/Vol] 9 mg/dL 8 - 23 mg/dL [place] Immature Platelet Fractionon 04-15-2019 Interpretation and review of laboratory results Abnormal [place] Platelet, Fluorescence [address] [place], [place] Comment on above: ORDERED BY LAB Platelet, Immature Fraction 3.1 % 1.1 - 10.3 % [place] Comment on above: ORDERED BY LAB Lipaseon 04-15-2019 Lipase [Catalytic activity/Vol] 256 U/L High 13-60 [facility] Comment on above: Performed By: #### C BC, IPF, IOCAL, HARVEY, LIP, TAMIE, CPBILC ####[facility] [address] [place] [id number] [facility] Director: Bunny Moy MD Lipase [Catalytic activity/Vol] 256 U/L High 13 - 60 U/L [place] MRI ABDOMEN W WO CONTRAST MR [...] MD 04/15/19 Edited Result - FINAL Normal [facility] Otheron 04-15-2019 Interpretation and review of laboratory results Abnormal [facility] [place], [place] PLT, Immature Fract.on 04-15 Platelet, Fluoresc. 103 k/uL Low 138-453 [facility] Comment on above: Result Comment: ORDE RED BY LAB Performed By: #### C BC, IPF, IOCAL, HARVEY, LIP, TAMIE, CPBILC ####[facility] [address] [place] [address] Lab Director: Bunny Moy MD PLT, Immature Fract. 3.1 % Normal 1.1-10.[address] [facility] Comment on above: Result Comment: ORDE RED BY LAB Performed By: #### C BC, IPF, IOCAL, HARVEY, LIP, TAMIE, CPBILC ####[facility] [address] [place], [place] [phone] Lab Director: Bunny Moy MD POC Glucose Fingerstickon Glucose [Mass/Vol] 123 mg/dL High 75 - 110 mg/dL [place], [place] Interpretation and review of laboratory results Abnormal [place] Glucose [Mass/Vol] 110 mg/dL 75 - 110 mg/dL [place] Glucose [Mass/Vol] 112 mg/dL High 75 - 110 mg/dL [place] Interpretation and review of laboratory results Abnormal [place] Glucose [Mass/Vol] 139 mg/dL High 75 - 110 mg/dL [place] Interpretation and review of laboratory results Abnormal [place] Phosphoruson 04-15-2019 Phosphate [Mass/Vol] 3.0 mg/dL 2.5 - 4 .5 mg/dL [place], [place] Phosphorus, Inorg.on 019 Phosphorus, Inorg. 3.0 mg/dL Normal 2.5-4.5 [facility] Comment on above: Performed By: #### C BC, IPF, IOCAL, HARVEY, LIP, TAMIE, CPBILC ####[facility] [address] [place], [place] 158[address] Lab Director: Bunny Moy MD Amylaseon 04-14-2019 Amylase [Catalytic activity/Vol] 149 U/L High 28-100 [facility] Comment on above: Performed By: #### C MPX, LIP #### [facility] [address] [place], [place] [id number] Linux Administrator: Bunny Moy MD Amylase [Catalytic activity/Vol] 149 U/L High 28 - 100 U/L [place] CBCon 04-14-2019 Erythrocyte distribution width (RBC) [Ratio] 12.7 % Normal 11.8-14.4 [facility] Comment on above: Performed By: #### I OCAL, HARVEY, LIP, CBC, IPF ####[facility] [address] [place] [address] Lab Director: Bunny Moy MD Hematocrit (Bld) [Volume fraction] 41.0 % Normal 40.7-50.3 [facility] Comment on above: Performed By: #### I OCAL, HARVEY, LIP, CBC, IPF ####[facility] [address] [place] [address] Lab Director: Bunny Moy MD Hemoglobin (Bld) [Mass/Vol] 13.1 g/dL Normal 13.0-17.0 [facility] Comment on above: Performed By: #### I OCMONICA, HARVEY, LIP, CBC, IPF ####[address] [phone] Director: Bunny Moy MD MCH (RBC) [Entitic mass] 31.2 pg Normal 25.2-33.5 [facility] Comment on above: Performed By: #### I OCMONICA, HARVEY, LIP, CBC, IPF ####[address] [address] Lab Director: Bunny Moy MD MCHC (RBC) [Mass/Vol] 32.0 g/dL Normal 28.4-34.8 [facility] Comment on above: Performed By: #### I OCALHARVEY, LIP, CBC, IPF ####[facility] [address] [place] [address] [phone] Director: Bunny Moy MD MCV (RBC) [Entitic vol] 97.6 fL Normal 82.6-102.9 [facility] Comment on above: Performed By: #### I OCAL, HARVEY, LIP, CBC, IPF ####[facility] [address] [place] [address] Lab Director: Bunny Moy MD NRBC Automated 0.0 per [address] [facility] Comment on above: Performed By: #### I OCAL, HARVEY, LIP, CBC, IPF ####[facility] [address] [place], [place] [phone] Director: Bunny Moy MD Platelets (Bld) [#/Vol] See Reflexed IPF Result Normal 138-453 [facility] Comment on above: Performed By: #### I OCAL, HARVEY, LIP, CBC, IPF ####[facility] [address] [place], [place] [phone] Director: Bunny Moy MD RBC (Bld) [#/Vol] 4.20 10*6/uL Low 4.21-5.77 [facility] Comment on above: Performed By: #### I OCAL, HARVEY, LIP, CBC, IPF ####[facility] [address] [place], [place] [phone] Director: Bunny Moy MD WBC (Bld) [#/Vol] 8.1 10*3/uL Normal 3.5-11.3 [facility] Comment on above: Performed By: #### I OCAL, HARVEY, LIP, CBC, IPF ####[facility] [address] [place], [place] [phone] Director: Bunny Moy MD Platelet mean volume (Bld) [Entitic vol] NOT REPORTED Normal 8.1-13.5 [facility] Comment on above: Performed By: #### I OCAL, HARVEY, LIP, CBC, IPF ####[facility] [address] [place], [place] [phone] Director: Bunny Moy MD Erythrocyte distribution width (RBC) [Ratio] 12.7 % 11.8 - 14.4 % [place] Hematocrit (Bld) [Volume fraction] 41.0 % 40.7 - 50.3 % [place] Hemoglobin (Bld) [Mass/Vol] 13.1 g/dL 13 - 17 g/dL [place] Interpretation and review of laboratory results Abnormal [place] MCH (RBC) [Entitic mass] 31.2 pg 25.2 - 33.5 pg [place] MCHC (RBC) [Mass/Vol] 32.0 g/dL 28.4 - 34.8 g/dL [place] MCV (RBC) [Entitic vol] 97.6 fL 82.6 - 102.9 fL [place] Platelet mean volume (Bld) [Entitic vol] NOT REPORTED 8.1 - 13.5 fL [place] Platelets (Bld) [#/Vol] See Reflexed IPF Result [place] RBC (Bld) [#/Vol] 4.20 10*6/uL Low 4.21 - 5.77 m/uL [place] WBC (Bld) [#/Vol] 8.1 10*3/uL [place] WBC (Bld) [#/Vol] 0.0 10*3/uL 0.0 per 100 WBC [place] ABDOMEN PELVIS W IV CONTR [...] Carlton Garcia MD 04/14/[address] [facility] CT ABDOMEN PELVIS W IV CONTR AST Additional Contrast? Oralon 04-14-2019 Zev, Mhpn Incoming R adiant Results From Drawn to Scale/Intellicyts - 04/14/2019 8:11 PM EDT EXAMINATION: CT [...] Interval ERCP with expected pneumobilia. Fatty liver. [place], [place] Acute interstitial edematous pancreatitis without evidence of complication. Interval ERCP with expected pneumobilia. Fatty liver. [place], [place] EXAMINATION: CT OF T HE ABDOMEN [...] aorta. Bones/Soft Tissues: No acute osseous abnormality. [place] Calcium, Ionicon 04-14-2019 Calcium [Mass/Vol] 1.02 mmol/L Low 1.13-1.33 [facility] Comment on above: Performed By: #### C MPX, LIP #### [facility] [employer] [address] [place] [address] Linux Administrator: Bunny Moy MD Calcium, Ionizedon 9 Calcium [Mass/Vol] 1.02 mmol/L Low 1.13 - 1.33 mmol/L [place] Interpretation and review of laboratory results Abnormal [place] HEMOGLOBIN A1Con 04-14-2019 Glucose [Mass/Vol] 143 mg/dL [place], [place] Comment on above: The ADA and AACC rec ommend providing the estimated average glucose result to permit better patient understanding of their HBA1c result. HbA1c (Bld) [Mass fraction] 6.6 % High 4 - 6 % [place] Interpretation and review of laboratory results Abnormal [place] Hemoglobin A1Con 04-14-2019 HbA1c (Bld) [Mass fraction] 143 mg/dL Normal [facility] Comment on above: Result Comment: The ADA and AACC recommend providing the estimated average glucose result to permit better patient understanding of their HBA1c result. Performed By: #### G LYHGB ####[facility] [address] [place] [address] Lab Director: Bunny Moy MD HbA1c (Bld) [Mass fraction] 6.6 % High 4.0-6.0 [facility] Comment on above: Performed By: #### G LYHGB ####[facility] [address] [place] [address] Lab Director: Bunny Moy MD Immature Platelet Fractionon 04-14-2019 Interpretation and review of laboratory results Abnormal [place] Platelet, Fluorescence [address] [place], [place] Comment on above: ORDERED BY LAB Platelet, Immature Fraction 4.7 % 1.1 - 10.3 % [place] Comment on above: ORDERED BY LAB Lipaseon 04-14-2019 Lipase [Catalytic activity/Vol] 251 U/L High 13-60 [facility] Comment on above: Performed By: #### C MPX, LIP #### [address] [id number] [place] [address] Linux Administrator: Bunny Moy MD Lipase [Catalytic activity/Vol] 251 U/L High 13 - 60 U/L [place] Otheron 04-14-2019 Interpretation and review of laboratory results Abnormal [place] PLT, Immature Fract.on 04-14 Platelet, Fluoresc. 106 k/uL Low 138-453 [facility] Comment on above: Result Comment: ORDE RED BY LAB Performed By: #### I OCAL, HARVEY, LIP, CBC, IPF ####[facility] [address] [place] [address] Lab Director: Bunny Moy MD PLT, Immature Fract. 4.7 % Normal 1.1-10.[address] [facility] Comment on above: Result Comment: ORDE RED BY LAB Performed By: #### I OCAL, HARVEY, LIP, CBC, IPF ####[facility] [address] [place], [place] [phone] Lab Director: Bunny Moy MD POC Glucose Fingerstickon Glucose [Mass/Vol] 126 mg/dL High 75 - 110 mg/dL [place] Interpretation and review of laboratory results Abnormal [place] Glucose [Mass/Vol] 108 mg/dL 75 - 110 mg/dL [place] Glucose [Mass/Vol] 122 mg/dL High 75 - 110 mg/dL [place] Interpretation and review of laboratory results Abnormal [place] Calcium, Ionicon 04-13-2019 Calcium [Mass/Vol] 1.00 mmol/L Low 1.13-1.33 [facility] Comment on above: Performed By: #### C MPX, LIP #### [facility] [employer] [facility] [place], [place] [phone] Linux Administrator: Bunny Moy MD Calcium, Ionizedon 9 Calcium [Mass/Vol] 1 mmol/L Low 1.13 - 1.33 mmol/L [place] Interpretation and review of laboratory results Abnormal [place] Hepatic Function Panelon Albumin [Mass/Vol] 2.9 g/dL Low 3.5 - 5.2 g/dL [place] Albumin/Globulin [Mass ratio] 1.0 {ratio} [place] ALP [Catalytic activity/Vol] 41 U/L 40 - 129 U/L [place] ALT [Catalytic activity/Vol] 103 U/L High 5 - 41 U/L [place] AST [Catalytic activity/Vol] 36 U/L <40 [place] Bilirubin Ql (U) 0.87 mg/dL 0.3 - 1.2 mg/dL [place] Bilirubin, Indirect 0.54 mg/dL 0 - 1 mg/dL [place] Bilirubin.direct [Mass/Vol] 0.33 mg/dL High <0.31 [place] Globulin (S) [Mass/Vol] NOT REPORTED 1.5 - 3.8 g/dL [place] Interpretation and review of laboratory results Abnormal [place] Protein [Mass/Vol] 5.7 g/dL Low 6.4 - 8.3 g/dL [place] Lipaseon 04-13-2019 Lipase [Catalytic activity/Vol] 288 U/L High 13-60 [facility] Comment on above: Performed By: #### C MPX, LIP #### [facility] [employer] [address] [place] [address] Linux Administrator: Bunny Moy MD Interpretation and review of laboratory results Abnormal [place] Lipase [Catalytic activity/Vol] 288 U/L High 13 - 60 U/L [place] Liver Profileon 04-13-2019 Albumin [Mass/Vol] 2.9 g/dL Low 3.5-5.2 [facility] Comment on above: Performed By: #### C MPX, LIP #### [facility] [employer] [address] [place] [address] Linux Administrator: Bunny Moy MD Albumin/Globulin [Mass ratio] 1.0 {ratio} Normal 1.0-2.5 [facility] Comment on above: Performed By: #### C MPX, LIP #### [facility] [employer] [address] [place] [address] Linux Administrator: Bunny Moy MD Alkaline Phos 41 U/L Normal 40-129 [facility] Comment on above: Performed By: #### C MPX, LIP #### [facility] [employer] [facility] [place] [address] Linux Administrator: Bunny Moy MD ALT [Catalytic activity/Vol] 103 U/L High 5-41 [facility] Comment on above: Performed By: #### C MPX, LIP #### [facility] [address] [place] [address] Linux Administrator: Bunny Moy MD AST [Catalytic activity/Vol] 36 U/L Normal <40 [facility] Comment on above: Performed By: #### C MPX, LIP #### [address] [address] Linux Administrator: Bunny Moy MD Bilirubin Ql (U) 0.87 mg/dL Normal 0.3-1.2 [facility] Comment on above: Performed By: #### C MPX, LIP #### [facility] [employer] [address] [place] [address] Linux Administrator: Bunny Moy MD Bilirubin, Indirect 0.54 mg/dL Normal 0.00-1.00 [facility] Comment on above: Performed By: #### C MPX, LIP #### [facility] [employer] [address] [place] [address] Linux Administrator: Bunny Moy MD Bilirubin.direct [Mass/Vol] 0.33 mg/dL High <0.31 [facility] Comment on above: Performed By: #### C MPX, LIP #### [address] [address] Linux Administrator: Bunny Moy MD Protein [Mass/Vol] 5.7 g/dL Low 6.4-8.3 [facility] Comment on above: Performed By: #### C MPX, LIP #### [address] [address] Linux Administrator: Bunny Moy MD Globulin (S) [Mass/Vol] NOT REPORTED Normal 1.5-3.8 [facility] Comment on above: Performed By: #### C MPX, LIP #### [address] [address] Linux Administrator: Bunny Moy MD POC Glucose Fingerstickon Glucose [Mass/Vol] 154 mg/dL High 75 - 110 mg/dL [place] Interpretation and review of laboratory results Abnormal [place] Glucose [Mass/Vol] 132 mg/dL High 75 - 110 mg/dL [place] Interpretation and review of laboratory results Abnormal [place] Glucose [Mass/Vol] 174 mg/dL High 75 - 110 mg/dL [place] Interpretation and review of laboratory results Abnormal [place] Glucose [Mass/Vol] 148 mg/dL High 75 - 110 mg/dL [place] Interpretation and review of laboratory results Abnormal [place] AMYLASEon 04-12-2019 Amylase [Catalytic activity/Vol] 436 U/L High 28 - 100 U/L [place] Interpretation and review of laboratory results Abnormal [place] Amylaseon 04-12-2019 Amylase [Catalytic activity/Vol] 436 U/L High 28-100 [facility] Comment on above: Performed By: #### P T, IOCAL, CBC, IPF, HARVEY, CMPX, MG, TAMIE, TRIG, LIP #### [facility] [employer] [address] [place] [address] [id number] Linux Administrator: Bunny Moy MD CBCon 04-12-2019 Erythrocyte distribution width (RBC) [Ratio] 12.4 % Normal 11.8-14.4 [facility] Comment on above: Performed By: #### P T, IOCAL, CBC, IPF, HARVEY, CMPX, MG, TAMIE, TRIG, LIP #### [address] [id number] Linux Administrator: Bunny Moy MD Hematocrit (Bld) [Volume fraction] 48.2 % Normal 40.7-50.3 [facility] Comment on above: Performed By: #### P T, IOCAL, CBC, IPF, HARVEY, CMPX, MG, TAMIE, TRIG, LIP #### [address] [phone] Linux Administrator: Bunny Moy MD Hemoglobin (Bld) [Mass/Vol] 16.1 g/dL Normal 13.0-17.0 [facility] Comment on above: Performed By: #### P T, IOCAL, CBC, IPF, HARVEY, CMPX, MG, TAMIE, TRIG, LIP #### [address] [address] Linux Administrator: Bunny Moy MD MCH (RBC) [Entitic mass] 31.6 pg Normal 25.2-33.5 [facility] Comment on above: Performed By: #### P T, IOCAL, CBC, IPF, HARVEY, CMPX, MG, TAMIE, TRIG, LIP #### [place] [address] Linux Administrator: Bunny Moy MD MCHC (RBC) [Mass/Vol] 33.4 g/dL Normal 28.4-34.8 [facility] Comment on above: Performed By: #### P T, IOCAL, CBC, IPF, HARVEY, CMPX, MG, TAMIE, TRIG, LIP #### [place] [address] Linux Administrator: Bunny Moy MD MCV (RBC) [Entitic vol] 94.5 fL Normal 82.6-102.9 [facility] Comment on above: Performed By: #### P T, IOCAL, CBC, IPF, HARVEY, CMPX, MG, TAMIE, TRIG, LIP #### [place] [address] Linux Administrator: Bunny Moy MD NRBC Automated 0.0 per [address] [facility] Comment on above: Performed By: #### P T, IOCAL, CBC, IPF, HARVEY, CMPX, MG, TAMIE, TRIG, LIP #### [place] [address] Linux Administrator: Bunny Moy MD Platelets (Bld) [#/Vol] See Reflexed IPF Result Normal 138-453 [facility] Comment on above: Performed By: #### P T, IOCAL, CBC, IPF, HARVEY, CMPX, MG, TAMIE, TRIG, LIP #### [address] [id number] Linux Administrator: Bunny Moy MD RBC (Bld) [#/Vol] 5.10 10*6/uL Normal 4.21-5.77 [facility] Comment on above: Performed By: #### P T, IOCAL, CBC, IPF, HARVEY, CMPX, MG, TAMIE, TRIG, LIP #### [address] [id number] Linux Administrator: Bunny Moy MD WBC (Bld) [#/Vol] 9.1 10*3/uL Normal 3.5-11.3 [facility] Comment on above: Performed By: #### P T, IOCAL, CBC, IPF, HARVEY, CMPX, MG, TAMIE, TRIG, LIP #### [address] [phone] Linux Administrator: Bunny Moy MD Platelet mean volume (Bld) [Entitic vol] NOT REPORTED Normal 8.1-13.5 [facility] Comment on above: Performed By: #### P T, IOCAL, CBC, IPF, HARVEY, CMPX, MG, TAMIE, TRIG, LIP #### [address] [id number] Linux Administrator: Bunny Moy MD Erythrocyte distribution width (RBC) [Ratio] 12.4 % 11.8 - 14.4 % [place] Hematocrit (Bld) [Volume fraction] 48.2 % 40.7 - 50.3 % [place] Hemoglobin (Bld) [Mass/Vol] 16.1 g/dL 13 - 17 g/dL [place] MCH (RBC) [Entitic mass] 31.6 pg 25.2 - 33.5 pg [place] MCHC (RBC) [Mass/Vol] 33.4 g/dL 28.4 - 34.8 g/dL [place] MCV (RBC) [Entitic vol] 94.5 fL 82.6 - 102.9 fL [place] Platelet mean volume (Bld) [Entitic vol] NOT REPORTED 8.1 - 13.5 fL [place] Platelets (Bld) [#/Vol] See Reflexed IPF Result [place] RBC (Bld) [#/Vol] 5.10 10*6/uL 4.21 - 5.77 m/uL [place] WBC (Bld) [#/Vol] 9.1 10*3/uL [place] WBC (Bld) [#/Vol] 0.0 10*3/uL 0.0 per 100 WBC [place] Calcium, Ionicon 04-12-2019 Calcium [Mass/Vol] 1.01 mmol/L Low 1.13-1.33 [facility] Comment on above: Performed By: #### P T, IOCAL, CBC, IPF, HARVEY, CMPX, MG, TAMIE, TRIG, LIP #### [facility] [employer] [address] [place] [phone] Linux Administrator: Bunny Moy MD Calcium, Ionizedon 9 Calcium [Mass/Vol] 1.01 mmol/L Low 1.13 - 1.33 mmol/L [place] Interpretation and review of laboratory results Abnormal [place] Comp Metabolic Pr/rfx MGon 1 Albumin [Mass/Vol] 3.2 g/dL Low 3.5-5.2 [facility] Comment on above: Performed By: #### P T, IOCAL, CBC, IPF, HARVEY, CMPX, MG, TAMIE, TRIG, LIP #### [facility] [employer] [address] [place] [phone] Linux Administrator: Bunny Moy MD Albumin/Globulin [Mass ratio] 1.1 {ratio} Normal 1.0-2.5 [facility] Comment on above: Performed By: #### P T, IOCAL, CBC, IPF, HARVEY, CMPX, MG, TAMIE, TRIG, LIP #### [address] [address] Linux Administrator: Bunny Moy MD Alkaline Phos 49 U/L Normal 40-129 [facility] Comment on above: Result Comment: SPEC IMEN SLIGHTLY HEMOLYZED, RESULTS MAY BE ADVERSELY AFFECTED. Performed By: #### P T, IOCAL, CBC, IPF, HARVEY, CMPX, MG, TAMIE, TRIG, LIP #### [address] [id number] Linux Administrator: Bunny Moy MD ALT [Catalytic activity/Vol] 192 U/L High 5-41 [facility] Comment on above: Result Comment: SPEC IMEN SLIGHTLY HEMOLYZED, RESULTS MAY BE ADVERSELY AFFECTED. Performed By: #### P T, IOCAL, CBC, IPF, HARVEY, CMPX, MG, TAMIE, TRIG, LIP #### [address] [id number] Linux Administrator: Bunny Moy MD Anion gap [Moles/Vol] 14 mmol/L Normal 9-17 [facility] Comment on above: Performed By: #### P T, IOCAL, CBC, IPF, HARVEY, CMPX, MG, TAMIE, TRIG, LIP #### [address] [address] Linux Administrator: Bunny Moy MD AST [Catalytic activity/Vol] 113 U/L High <40 [facility] Comment on above: Result Comment: SPEC IMEN SLIGHTLY HEMOLYZED, RESULTS MAY BE ADVERSELY AFFECTED. Performed By: #### P T, IOCAL, CBC, IPF, HARVEY, CMPX, MG, TAMIE, TRIG, LIP #### [address] [phone] Linux Administrator: Bunny Moy MD Bilirubin Ql (U) 1.33 mg/dL High 0.3-1.2 [facility] Comment on above: Performed By: #### P T, IOCAL, CBC, IPF, HARVEY, CMPX, MG, TAMIE, TRIG, LIP #### [address] [address] Linux Administrator: Bunny Moy MD Calcium [Mass/Vol] 7.6 mg/dL Low 8.6-10.4 [facility] Comment on above: Performed By: #### P T, IOCAL, CBC, IPF, HARVEY, CMPX, MG, TAMIE, TRIG, LIP #### [place] [address] Linux Administrator: Bunny Moy MD Chloride [Moles/Vol] 103 mmol/L Normal 98-[address] [facility] Comment on above: Performed By: #### P T, IOCAL, CBC, IPF, HARVEY, CMPX, MG, TAMIE, TRIG, LIP #### [place] [address] Linux Administrator: Bunny Moy MD CO2 [Moles/Vol] 21 mmol/L Normal 20-31 [facility] Comment on above: Performed By: #### P T, IOCAL, CBC, IPF, HARVEY, CMPX, MG, TAMIE, TRIG, LIP #### [place] [address] Linux Administrator: Bunny Moy MD Creatinine [Mass/Vol] 0.56 mg/dL Low 0.70-1.20 [facility] Comment on above: Performed By: #### P T, IOCAL, CBC, IPF, HARVEY, CMPX, MG, TAMIE, TRIG, LIP #### [place] [address] Linux Administrator: Bunny Moy MD GFR, Amer >60 Normal >60 [facility] Comment on above: Performed By: #### P T, IOCAL, CBC, IPF, HARVEY, CMPX, MG, TAMIE, TRIG, LIP #### [place] [address] Linux Administrator: Bunny Moy MD GFR,non Amer >60 Normal >[address] [facility] Comment on above: Performed By: #### P T, IOCAL, CBC, IPF, HARVEY, CMPX, MG, TAMIE, TRIG, LIP #### [address] [id number] Linux Administrator: Bunny Moy MD Glucose [Mass/Vol] 159 mg/dL High 70-99 [facility] Comment on above: Performed By: #### P T, IOCAL, CBC, IPF, HARVEY, CMPX, MG, TAMIE, TRIG, LIP #### [address] [address] Linux Administrator: Bunny Moy MD Potassium [Moles/Vol] 4.2 mmol/L Normal 3.7-5.3 [facility] Comment on above: Result Comment: SPEC IMEN SLIGHTLY HEMOLYZED, RESULTS MAY BE ADVERSELY AFFECTED. Performed By: #### P T, IOCAL, CBC, IPF, HARVEY, CMPX, MG, TAMIE, TRIG, LIP #### [address] [address] Linux Administrator: Bunny Moy MD Protein [Mass/Vol] 6.0 g/dL Low 6.4-8.3 [facility] Comment on above: Performed By: #### P T, IOCAL, CBC, IPF, HARVEY, CMPX, MG, TAMIE, TRIG, LIP #### [facility] [employer] [address] [place] [id number] Linux Administrator: Bunny Moy MD Sodium [Moles/Vol] 138 mmol/L Normal 135-144 [facility] Comment on above: Performed By: #### P T, IOCAL, CBC, IPF, HARVEY, CMPX, MG, TAMIE, TRIG, LIP #### [address] [address] Linux Administrator: Bunny Moy MD Urea nitrogen [Mass/Vol] 15 mg/dL Normal 8-23 [facility] Comment on above: Performed By: #### P T, IOCAL, CBC, IPF, HARVEY, CMPX, MG, TAMIE, TRIG, LIP #### [id number] [place] [address] Linux Administrator: Bunny Moy MD (cont.) Normal [facility] Comment on above: Result Comment: Aver age GFR for 60-69 years old: 85 mL/min/1.73sq m Chronic Kidney Disease: <60 mL/min/1.73sq m Kidney failure: <15 mL/min/1.73sq m eGFR calculated using average adult body mass. Additional eGFR calculator available at: http://www.WeStore/multiple_crcl_2012.htm Performed By: #### P T, IOCAL, CBC, IPF, HARVEY, CMPX, MG, TAMIE, TRIG, LIP #### [address] [address] Linux Administrator: Bunny Moy MD BUN/CRE Ratio NOT REPORTED Normal - [facility] Comment on above: Performed By: #### P T, IOCAL, CBC, IPF, HARVEY, CMPX, MG, TAMIE, TRIG, LIP #### [id number] [place] [address] Linux Administrator: Bunny Moy MD Staging: NOT REPORTED Normal [facility] Comment on above: Performed By: #### P T, IOCAL, CBC, IPF, HARVEY, CMPX, MG, TAMIE, TRIG, LIP #### [id number] [place] [address] Linux Administrator: Bunny Moy MD Comprehensive Metabolic Pane l w/ Reflex to MGon 04-12-2019 Albumin [Mass/Vol] 3.2 g/dL Low 3.5 - 5.2 g/dL [place] Albumin/Globulin [Mass ratio] 1.1 {ratio} [place] ALP [Catalytic activity/Vol] 49 U/L 40 - 129 U/L [place] Comment on above: SPECIMEN SLIGHTLY HE MOLYZED, RESULTS MAY BE ADVERSELY AFFECTED. ALT [Catalytic activity/Vol] 192 U/L High 5 - 41 U/L [place] Comment on above: SPECIMEN SLIGHTLY HE MOLYZED, RESULTS MAY BE ADVERSELY AFFECTED. Anion gap [Moles/Vol] 14 mmol/L 9 - 17 mmol/L [place] AST [Catalytic activity/Vol] 113 U/L High <40 [place] Comment on above: SPECIMEN SLIGHTLY HE MOLYZED, RESULTS MAY BE ADVERSELY AFFECTED. Bilirubin Ql (U) 1.33 mg/dL High 0.3 - 1.2 mg/dL [place] Bun/Cre Ratio NOT REPORTED [place] Calcium [Mass/Vol] 7.6 mg/dL Low 8.6 - 10. 4 mg/dL [place] Chloride [Moles/Vol] 103 mmol/L 98 - 10 7 mmol/L [place] CO2 [Moles/Vol] 21 mmol/L 20 - 31 mmol/L [place] Creatinine [Mass/Vol] 0.56 mg/dL Low 0.7 - 1.2 mg/dL [place] GFR >60 >60 mL/min [place] GFR Non- >60 >60 mL/min [place] GFR/1.73 sq M predicted among non-blacks MDRD (S/P/Bld) [Vol rate/Area] NOT REPORTED [place] GFR/1.73 sq M predicted among non-blacks MDRD (S/P/Bld) [Vol rate/Area] [place] Comment on above: Average GFR for 60-6 9 years old: 85 mL/min/1.73sq m Chronic Kidney Disease: <60 mL/min/1.73sq m Kidney failure: <15 mL/min/1.73sq m eGFR calculated using average adult body mass. Additional eGFR calculator available at: http://www.SitatByoot.com.Propagenix/multiple_crcl_2011.htm Glucose [Mass/Vol] 159 mg/dL High 70 - 99 mg/dL [place] Interpretation and review of laboratory results Abnormal [place] Potassium [Moles/Vol] 4.2 mmol/L 3.7 - 5.3 mmol/L [place] Comment on above: SPECIMEN SLIGHTLY HE MOLYZED, RESULTS MAY BE ADVERSELY AFFECTED. Protein [Mass/Vol] 6.0 g/dL Low 6.4 - 8.3 g/dL [place] Sodium [Moles/Vol] 138 mmol/L 135 - 144 mmol/L [place] Urea nitrogen [Mass/Vol] 15 mg/dL 8 - 23 mg/dL [place] ERCP BILIARY AND PANCREAT IC [...] Interpreted by: Lyn Colby MD Signed by: Lny Colby MD 04/12/[address] [facility] [place] ERCP BILIARY AND PANCREAT IC S&Ion 04-12-2019 ERCP images demonstr ate filling defects distal common bowel duct on the initial images, not replicated on later images suggesting stone extraction. Bile ducts are smoothly demarcated without nodularity. Please refer to the procedure report for further details. [place] EXAMINATION: 4 SPOT IMAGES FROM AN [...] hepatic and right and left hepatic ducts. [place], [place] Zev, Mhpn Incoming R adiant Results From Drawn to Scale/Pacs - 04/12/2019 2:47 PM EDT EXAMINATION: 4 [...] to the procedure report for further details. [place] Immature Platelet Fractionon 04-12-2019 Interpretation and review of laboratory results Abnormal [place] Platelet, Fluorescence [address] [place], [place] Comment on above: ORDERED BY LAB Platelet, Immature Fraction 1.9 % 1.1 - 10.3 % [place] Comment on above: ORDERED BY LAB LIPASEon 04-12-2019 Interpretation and review of laboratory results Abnormal [place] Lipase [Catalytic activity/Vol] 875 U/L High 13 - 60 U/L [place] Lipaseon 04-12-2019 Lipase [Catalytic activity/Vol] 875 U/L High 13-60 [facility] Comment on above: Performed By: #### C MPX, LIP #### [address] [phone] Linux Administrator: Bunny Moy MD Magnesiumon 04-12-2019 Magnesium [Mass/Vol] 1.7 mg/dL Normal 1.6-2.[address] [facility] Comment on above: Performed By: #### P T, IOCAL, CBC, IPF, HARVEY, CMPX, MG, TAMIE, TRIG, LIP #### [address] [phone] Linux Administrator: Bunny Moy MD Magnesium [Mass/Vol] 1.7 mg/dL 1.6 - 2 .6 mg/dL [place] PLT, Immature Fract.on 04-12 Platelet, Fluoresc. 126 k/uL Low 138-453 [facility] Comment on above: Result Comment: ORDE RED BY LAB Performed By: #### P T, IOCAL, CBC, IPF, HARVEY, CMPX, MG, TAMIE, TRIG, LIP #### [address] [phone] Linux Administrator: Bunny Moy MD PLT, Immature Fract. 1.9 % Normal 1.1-10.[address] [facility] Comment on above: Result Comment: ORDE RED BY LAB Performed By: #### P T, IOCAL, CBC, IPF, HARVEY, CMPX, MG, TAMIE, TRIG, LIP #### [address] [phone] Linux Administrator: Bunny Moy MD POC Glucose Fingerstickon Glucose [Mass/Vol] 229 mg/dL High 75 - 110 mg/dL [place] Interpretation and review of laboratory results Abnormal [place] Glucose [Mass/Vol] 262 mg/dL High 75 - 110 mg/dL [place] Interpretation and review of laboratory results Abnormal [place] Glucose [Mass/Vol] 183 mg/dL High 75 - 110 mg/dL [place] Interpretation and review of laboratory results Abnormal [place] Glucose [Mass/Vol] 137 mg/dL High 75 - 110 mg/dL [place] Interpretation and review of laboratory results Abnormal [place] Glucose [Mass/Vol] 168 mg/dL High 75 - 110 mg/dL [place] Interpretation and review of laboratory results Abnormal [place] PTon 04-12-2019 INR Coag (PPP) [Relative time] 1.2 {INR} Normal [facility] Comment on above: Result Comment: Therapeutic Range: Moderate Anticoagulant Intensity: INR = 2.0-3.0 High Anticoagulant Intensity: INR = 2.5-3.5 Performed By: #### P T, IOCAL, CBC, IPF, HARVEY, CMPX, MG, TAMIE, TRIG, LIP #### [facility] [employer] [address] [place] [phone] Linux Administrator: Bunny Moy MD PT Coag (PPP) [Time] 12.9 s High 9.0-12.[address] [facility] Comment on above: Performed By: #### P T, IOCAL, CBC, IPF, HARVEY, CMPX, MG, TAMIE, TRIG, LIP #### [facility] [employer] [address] [place] [phone] Linux Administrator: Bunny Moy MD Phosphoruson 04-12-2019 Phosphate [Mass/Vol] 2.9 mg/dL 2.5 - 4 .5 mg/dL [place] Phosphorus, Inorg.on 019 Phosphorus, Inorg. 2.9 mg/dL Normal 2.5-4.5 [facility] Comment on above: Performed By: #### C MPX, LIP #### [facility] [place], [place] [phone] Linux Administrator: Bunny Moy MD Protime-INRon 04-12-2019 INR Coag (PPP) [Relative time] 1.2 {INR} [place], [place] Comment on above: Therapeutic Range: Moderate Anticoagulant Intensity: INR = 2.0-3.0 High Anticoagulant Intensity: INR = 2.5-3.5 Interpretation and review of laboratory results Abnormal [place] PT Coag (PPP) [Time] 12.9 s High [place] Triglycerideon 04-12-2019 Triglyceride [Mass/Vol] 95 mg/dL <150 [place], [place] Comment on above: Triglyceride Guidelines: <150 Desirable 150-199 Borderline 200-499 High >499 Very high Based on AHA Guidelines for fasting triglyceride, April 2012. Triglycerideson 04-12-2019 Triglyceride [Mass/Vol] 95 mg/dL Normal <150 M [facility] Comment on above: Result Comment: Triglyceride Guidelines: <150 Desirable 150-199 Borderline 200-499 High >499 Very high Based on AHA Guidelines for fasting triglyceride, April 2012. Performed By: #### C MPX, LIP #### [facility] [employer] [address] [place] [address] [phone] Linux Administrator: Bunny Moy MD Comp Metabolic Pr/rfx MGon 1 (cont.) Normal [facility] Comment on above: Result Comment: Aver age GFR for 60-69 years old: 85 mL/min/1.73sq m Chronic Kidney Disease: <60 mL/min/1.73sq m Kidney failure: <15 mL/min/1.73sq m eGFR calculated using average adult body mass. Additional eGFR calculator available at: http://www.SitatByoot.com.Propagenix/multiple_crcl_2012.htm Performed By: #### C MPX, LIP #### [facility] [place], [place] [phone] Linux Administrator: Bunny Moy MD Albumin [Mass/Vol] 4.0 g/dL Normal 3.5-5.2 [facility] Comment on above: Performed By: #### C MPX, LIP #### [facility] [address] [place] [phone] Linux Administrator: Bunny Moy MD Albumin/Globulin [Mass ratio] 1.3 {ratio} Normal 1.0-2.5 [facility] Comment on above: Performed By: #### C MPX, LIP #### [facility] [address] [place] [phone] Linux Administrator: Bunny Moy MD Alkaline Phos 64 U/L Normal 40-129 [facility] Comment on above: Performed By: #### C MPX, LIP #### [facility] [address] [place] [phone] Linux Administrator: Bunny Moy MD ALT [Catalytic activity/Vol] 284 U/L High 5-41 [facility] Comment on above: Performed By: #### C MPX, LIP #### [facility] [address] [place] [phone] Linux Administrator: Bunny Moy MD Anion gap [Moles/Vol] 18 mmol/L High 9-17 [facility] Comment on above: Performed By: #### C MPX, LIP #### [address] [address] Linux Administrator: Bunny Moy MD AST [Catalytic activity/Vol] 250 U/L High <40 [facility] Comment on above: Performed By: #### C MPX, LIP #### [address] [phone] Linux Administrator: Bunny Moy MD Bilirubin Ql (U) 1.34 mg/dL High 0.3-1.2 [facility] Comment on above: Performed By: #### C MPX, LIP #### [facility] [address] [place] [phone] Linux Administrator: Bunny Moy MD Calcium [Mass/Vol] 8.5 mg/dL Low 8.6-10.4 [facility] Comment on above: Performed By: #### C MPX, LIP #### [address] [address] Linux Administrator: Bunny Moy MD Chloride [Moles/Vol] 103 mmol/L Normal 98-[address] [facility] Comment on above: Performed By: #### C MPX, LIP #### [facility] [address] [place] [phone] Linux Administrator: Bunny Moy MD CO2 [Moles/Vol] 20 mmol/L Normal 20-31 [facility] Comment on above: Performed By: #### C MPX, LIP #### [address] [address] Linux Administrator: Bunny Moy MD Creatinine [Mass/Vol] 0.50 mg/dL Low 0.70-1.20 [facility] Comment on above: Performed By: #### C MPX, LIP #### [address] [address] Linux Administrator: Bunny Moy MD GFR, Amer >60 Normal >60 [facility] Comment on above: Performed By: #### C MPX, LIP #### [facility] [address] [place] [phone] Linux Administrator: Bunny Moy MD GFR,non Amer >60 Normal >[address] [facility] Comment on above: Performed By: #### C MPX, LIP #### [facility] [address] [place] [address] Linux Administrator: Bunny Moy MD Glucose [Mass/Vol] 173 mg/dL High 70-99 [facility] Comment on above: Performed By: #### C MPX, LIP #### [facility] [address] [place] [address] Linux Administrator: Bunny Moy MD Potassium [Moles/Vol] 4.4 mmol/L Normal 3.7-5.3 [facility] Comment on above: Performed By: #### C MPX, LIP #### [facility] [address] [place] [address] Linux Administrator: Bunny Moy MD Protein [Mass/Vol] 7.0 g/dL Normal 6.4-8.3 [facility] Comment on above: Performed By: #### C MPX, LIP #### [address] [address] Linux Administrator: Bunny Moy MD Sodium [Moles/Vol] 141 mmol/L Normal 135-144 [facility] Comment on above: Performed By: #### C MPX, LIP #### [address] [address] Linux Administrator: Bunny Moy MD Urea nitrogen [Mass/Vol] 11 mg/dL Normal 8- [facility] Comment on above: Performed By: #### C MPX, LIP #### [address] [phone] Linux Administrator: Bunny Moy MD BUN/CRE Ratio NOT REPORTED Normal - [facility] Comment on above: Performed By: #### C MPX, LIP #### [facility] [address] [place] [phone] Linux Administrator: Bunny Moy MD Staging: NOT REPORTED Normal [facility] Comment on above: Performed By: #### C MPX, LIP #### [facility] [employer] [address] [place] [address] Linux Administrator: Bunny Moy MD Comprehensive Metabolic Pane l w/ Reflex to MGon 10-10-2019 Albumin [Mass/Vol] 4 g/dL 3.5 - 5.2 g/dL [place] Albumin/Globulin [Mass ratio] 1.3 {ratio} [place] ALP [Catalytic activity/Vol] 64 U/L 40 - 129 U/L [place] ALT [Catalytic activity/Vol] 284 U/L High 5 - 41 U/L [place] Anion gap [Moles/Vol] 18 mmol/L High 9 - 17 mmol/L [place] AST [Catalytic activity/Vol] 250 U/L High <40 [place] Bilirubin Ql (U) 1.34 mg/dL High 0.3 - 1.2 mg/dL [place] Bun/Cre Ratio NOT REPORTED [place] Calcium [Mass/Vol] 8.5 mg/dL Low 8.6 - 10. 4 mg/dL [place] Chloride [Moles/Vol] 103 mmol/L 98 - 10 7 mmol/L [place] CO2 [Moles/Vol] 20 mmol/L 20 - 31 mmol/L [place] Creatinine [Mass/Vol] 0.5 mg/dL Low 0.7 - 1.2 mg/dL [place] GFR >60 >60 mL/min [place] GFR Non- >60 >60 mL/min [place] GFR/1.73 sq M predicted among non-blacks MDRD (S/P/Bld) [Vol rate/Area] [place] Comment on above: Average GFR for 60-6 9 years old: 85 mL/min/1.73sq m Chronic Kidney Disease: <60 mL/min/1.73sq m Kidney failure: <15 mL/min/1.73sq m eGFR calculated using average adult body mass. Additional eGFR calculator available at: http://www.SitatByoot.com.Propagenix/multiple_crcl_2012.htm GFR/1.73 sq M predicted among non-blacks MDRD (S/P/Bld) [Vol rate/Area] NOT REPORTED [place] Glucose [Mass/Vol] 173 mg/dL High 70 - 99 mg/dL [place] Interpretation and review of laboratory results Abnormal [place] Potassium [Moles/Vol] 4.4 mmol/L 3.7 - 5.3 mmol/L [place] Protein [Mass/Vol] 7.0 g/dL 6.4 - 8.3 g/dL [place] Sodium [Moles/Vol] 141 mmol/L 135 - 144 mmol/L [place] Urea nitrogen [Mass/Vol] 11 mg/dL 8 - 23 mg/dL [place] Lipaseon 04-11-2019 Lipase [Catalytic activity/Vol] 1552 U/L High 13-60 [facility] Comment on above: Performed By: #### C MPX, LIP #### [facility] [employer] [address] [place] [phone] Linux Administrator: Bunny Moy MD Interpretation and review of laboratory results Abnormal [place] Lipase [Catalytic activity/Vol] 1552 U/L High 13 - 60 U/L [place] MRI ABDOMEN W WO CONTRAST MR [...] 04/11/2019to be communicated to a licensed caregiver. [place] EXAMINATION: MRI OF THE ABDOMEN WITH [...] reactive free fluid in the the pelvis. [facility] [place], [place] Zev, Mhpn Incoming R adiant Results From Drawn to Scale/Gaelectric - 04/11/2019 9:05 PM EDT EXAMINATION: MRI [...] 04/11/2019to be communicated to a licensed caregiver. [place] Addendum by Sa maryse Tate MD on 04/15/2019 9:28 AM ADDENDUM: Outside CT imaging from 04/11/2019 is made available for comparison. Aforementioned findings of pancreatitis, cholelithiasis and hepatic fatty infiltration appears similar to prior CT examination. [place], [place] POC Glucose Fingerstickon Glucose [Mass/Vol] 158 mg/dL High 75 - 110 mg/dL [place] Interpretation and review of laboratory results Abnormal [place] Vital Signs Date Time Vital Sign Value Performing Clinician Facility 05-17-2024 11:54-0500 Body mass index (BMI) [Ratio] 32.7 kg/m2 [employer] DO Work Phone: [facility] 05-17-2024 11:45-0500 Body height 172.72 cm Rodolfo Ball DO Work Phone: [facility] 05-17-2024 11:45-0500 Body weight 97.57 kg Rodolfo Ball DO Work Phone: [facility] 05-17-2024 11:45-0500 Diastolic blood pressure 87 mm[Hg] Rodolfo Ball DO Work Phone: [facility] 05-17-2024 11:45-0500 Heart rate 67 /min Rodolfo Ball DO Work Phone: [facility] 05-17-2024 11:45-0500 Respiratory rate 12 /min Rodolfo Ball DO Work Phone: [facility] 05-17-2024 11:45-0500 Systolic blood pressure 155 mm[Hg] Rodolfo Ball DO Work Phone: [facility] 03-21-2024 10:32-0400 Body height 172.72 cm DO Rodolfo Ball Work Phone: [facility] 03-21-2024 10:32-0400 Body mass index (BMI) [Ratio] 33.5 kg/m2 DO Rodolfo Ball Work Phone: [facility] 03-21-2024 10:32-0400 Body weight 100.24 kg DO Rodolfo Ball Work Phone: [facility] 03-21-2024 10:32-0400 Diastolic blood pressure 76 mm[Hg] DO Rodolfo Ball Work Phone: [facility] 03-21-2024 10:32-0400 Heart rate 60 /min DO Rodolfo Ball Work Phone: [facility] 03-21-2024 10:32-0400 Systolic blood pressure 147 mm[Hg] DO Rodolfo Ball Work Phone: [facility] 01-05-2024 14:53-0400 Body height 172.72 cm [facility] 01-05-2024 14:53-0400 Body mass index (BMI) [Ratio] 33.3 kg/m2 [facility] 01-05-2024 14:53-0400 Body weight 99.33 kg [facility] 01-05-2024 14:53-0400 Diastolic blood pressure 89 mm[Hg] [facility] 01-05-2024 14:53-0400 Heart rate 73 /min [facility] 01-05-2024 14:53-0400 Respiratory rate 12 /min [facility] 01-05-2024 14:53-0400 Systolic blood pressure 139 mm[Hg] [facility] 09-21-2023 09:40-0400 Body weight 101.71 kg DO Rodolfo Ball Work Phone: [facility] 09-21-2023 09:40-0400 Diastolic blood pressure 77 mm[Hg] DO Rodolfo Ball Work Phone: [facility] 09-21-2023 09:40-0400 Heart rate 62 /min DO Rodolfo Ball Work Phone: [facility] 09-21-2023 09:40-0400 Systolic blood pressure 136 mm[Hg] DO Rodolfo Ball Work Phone: [facility] 09-01-2023 14:48-0500 Body height 172.72 cm DO Rodolfo Ball Work Phone: [facility] 09-01-2023 14:48-0500 Body mass index (BMI) [Ratio] 34.4 kg/m2 DO Rodolfo Ball Work Phone: [facility] 09-01-2023 14:48-0500 Body weight 102.68 kg DO Rodolfo Ball Work Phone: [facility] 09-01-2023 14:48-0500 Diastolic blood pressure 92 mm[Hg] DO Rodolfo Ball Work Phone: [facility] 09-01-2023 14:48-0500 Heart rate 69 /min DO Rodolfo Ball Work Phone: [facility] 09-01-2023 14:48-0500 Respiratory rate 12 /min DO Rodolfo Ball Work Phone: [facility] 09-01-2023 14:48-0500 Systolic blood pressure 160 mm[Hg] DO Rodolfo Ball Work Phone: [facility] 07-11-2023 14:30-0500 Body height 172.72 cm Rodolfo Ball Other [facility] 07-11-2023 14:30-0500 Body mass index (BMI) [Ratio] 36.06 kg/m2 Rodolfo Ball Other [email or web address] Other 07-11-2023 14:30-0500 Body weight 107.59 kg Rodolfo Ball Other [facility] 07-11-2023 14:30-0500 Diastolic blood pressure 80 mm[Hg] Rodolfo Ball Other [facility] 07-11-2023 14:30-0500 Respiratory rate 12 /min Rodolfo Ball Other [facility] Other 07-11-2023 14:30-0500 Systolic blood pressure 140 mm[Hg] Rodolfo Ball Other [facility] 05-26-2023 11:15-0500 Body height 172.72 cm Rodolfo Ball Other [facility] 05-26-2023 11:15-0500 Body mass index (BMI) [Ratio] 35.51 kg/m2 Rodolfo Ball Other [facility] Other 05-26-2023 11:15-0500 Body weight 105.96 kg Rodolfo Ball Other [facility] Other 05-26-2023 11:15-0500 Body weight 105.95 kg DO Rodolfo Ball Work Phone: [facility] 05-26-2023 11:15-0500 Diastolic blood pressure 84 mm[Hg] Rodolfo Ball Other [facility] 05-26-2023 11:15-0500 Systolic blood pressure 155 mm[Hg] Rodolfo Ball Other [facility] 03-30-2023 12:20-0400 Diastolic blood pressure 62 mm[Hg] DO Rodolfo Ball Work Phone: [facility] 03-30-2023 12:20-0400 Heart rate 62 /min DO Rodolfo Ball Work Phone: [facility] 03-30-2023 12:20-0400 Respiratory rate 16 /min DO Rodolfo Ball Work Phone: [facility] 03-30-2023 12:20-0400 SaO2% (BldA) [Mass fraction] 97 % DO Rodolfo Ball Work Phone: [facility] 03-30-2023 12:20-0400 Systolic blood pressure 122 mm[Hg] DO Rodolfo Ball Work Phone: [facility] 03-30-2023 10:29-0400 Body height 175.26 cm DO Rodolof Ball Work Phone: [facility] 03-30-2023 10:29-0400 Body weight 104.32 kg DO Rodolfo Ball Work Phone: [facility] 03-23-2023 09:00-0400 Body height 172.72 cm Imad Asaad Other [facility] Other 03-23-2023 09:00-0400 Body mass index (BMI) [Ratio] 34.82 kg/m2 Imad Asaad Other [email or web address] Other 03-23-2023 09:00-0400 Body weight 103.87 kg Imad Asaad Other [email or web address] Other 03-23-2023 09:00-0400 Diastolic blood pressure 78 mm[Hg] Imad Asaad Other [email or web address] Other 03-23-2023 09:00-0400 Systolic blood pressure 171 mm[Hg] Imad Asaad Other [email or web address] Other 02-22-2023 15:45-0400 Body height 172.72 cm Rodolfo Ball Other [email or web address] Other 02-22-2023 15:45-0400 Body mass index (BMI) [Ratio] 35.88 kg/m2 Rodolfo Ball Other [email or web address] Other 02-22-2023 15:45-0400 Body weight 107.05 kg Rodolfo Ball Other [email or web address] Other 02-22-2023 15:45-0400 Diastolic blood pressure 82 mm[Hg] Rodolfo Ball Other [email or web address] Other 02-22-2023 15:45-0400 Respiratory rate 12 /min Rodolfo Ball Other [email or web address] Other 02-22-2023 15:45-0400 Systolic blood pressure 143 mm[Hg] Rodolfo Ball Other [email or web address] Other 01-25-2023 15:15-0400 Body height 172.72 cm Imad Asaad Other [email or web address] Other 01-25-2023 15:15-0400 Body mass index (BMI) [Ratio] 36.18 kg/m2 Imad Asaad Other [email or web address] Other 01-25-2023 15:15-0400 Body weight 107.96 kg Imad Asaad Other [email or web address] Other 01-25-2023 15:15-0400 Diastolic blood pressure 70 mm[Hg] Imad Asaad Other [email or web address] Other 01-25-2023 15:15-0400 Systolic blood pressure 144 mm[Hg] Imad Asaad Other [email or web address] Other 12-02-2022 13:45-0400 Body height 172.72 cm Rodolfo Ball Other [email or web address] Other 12-02-2022 13:45-0400 Body mass index (BMI) [Ratio] 36.24 kg/m2 Rodolfo Ball Other [email or web address] Other 12-02-2022 13:45-0400 Body weight 108.14 kg Rodolfo Ball Other [email or web address] Other 12-02-2022 13:45-0400 Diastolic blood pressure 86 mm[Hg] Rodolfo Ball Other [email or web address] Other 12-02-2022 13:45-0400 Respiratory rate 12 /min Rodolfo Ball Other [email or web address] Other 12-02-2022 13:45-0400 Systolic blood pressure 147 mm[Hg] Rodolfo Ball Other [email or web address] Other 11-04-2022 15:00-0400 Body height 172.72 cm Rodolfo Ball Other [email or web address] Other 11-04-2022 15:00-0400 Body mass index (BMI) [Ratio] 36.81 kg/m2 Rodolfo Ball Other [email or web address] Other 11-04-2022 15:00-0400 Body weight 109.82 kg Rodolfo Ball Other [email or web address] Other 11-04-2022 15:00-0400 Diastolic blood pressure 82 mm[Hg] Rodolfo Ball Other [email or web address] Other 11-04-2022 15:00-0400 SaO2% (BldA) [Mass fraction] 96 % Rodolfo Ball Other [email or web address] Other 11-04-2022 15:00-0400 Systolic blood pressure 130 mm[Hg] Rodolfo Ball Other [email or web address] Other 04-18-2019 08:27-0400 Body Temperature 97.59 [degF] [facility] [place] 04-18-2019 08:27-0400 BP Diastolic 86 mm[Hg[facility] 04-18-2019 08:27-0400 BP Systolic 146 mm[Hg] Joseph Guzmán [facility] [place] , [place] 04-18-2019 08:27-0400 Pulse (Heart Rate) 59 /min Joseph Guzmán [facility], [place] 04-18-2019 08:27-0400 Pulse Oximetry 95 % Joseph López [place] , [place] 04-18-2019 08:27-0400 Respiratory Rate 16 /min [facility] [place] 04-17-2019 09:40-0400 BMI (Body Mass Index) 35 kg/m2 Joseph Guzmán [facility], [place] 04-17-2019 09:40-0400 Body weight 107.5 kg Joseph Guzmán [facility] , [place] 04-17-2019 09:40-0400 Height 175.3 cm Joseph Guzmán [facility] , [place] Encounters Encounter Date Encounter Type Care Provider Facility Start: 05-17-2024 End: 05-17-2024 ambulatory Rodolfo Ball DO Work Phone: [facility] Work Phone: Start: 05-17-2024 End: 05-17-2024 Patient encounter procedure Rodolfo Ball DO Work Phone: [facility] Work Phone: Start: 05-09-2024 Non-patient / Non-visit Rodolfo Ball DO Work Phone: [facility] Work Phone: Start: 03-26-2024 End: 03-27-2024 ambulatory DO Rodolfo Ball Work Phone: [facility] Work Phone: Start: 03-26-2024 End: 03-27-2024 Patient encounter procedure DO Rodolfo Ball Work Phone: [facility]-Lab [place] Work Phone: Start: 03-21-2024 End: 03-21-2024 ambulatory DO Rodolfo Ball Work Phone: [facility] Work Phone: Start: 03-21-2024 End: 03-21-2024 Patient encounter procedure DO Rodolfo Ball Work Phone: [facility] Gastroenterology Work Phone: Start: 03-18-2024 End: 03-18-2024 Patient encounter procedure DO Rodolfo Ball Work Phone: [facility]-Ultrasound [place] Work Phone: Start: 03-18-2024 End: 03-18-2024 ambulatory DO Rodolfo Ball Work Phone: [facility] Work Phone: Start: 01-05-2024 End: 01-05-2024 Patient encounter procedure [facility] Work Phone: Start: 01-05-2024 End: 01-05-2024 ambulatory [facility] Work Phone: Start: 01-05-2024 Telephone encounter Rodolfo Ball FP [facility] Start: 11-08-2023 End: 11-08-2023 ambulatory DO Rodolfo Ball Work Phone: [facility] Work Phone: Start: 11-08-2023 End: 11-08-2023 Patient encounter procedure DO Rodolfo Ball Work Phone: [facility] Work Phone: Start: 09-27-2023 End: 09-27-2023 ambulatory DO Rodolfo Ball Work Phone: [facility] Work Phone: Start: 09-27-2023 End: 09-27-2023 Patient encounter procedure DO Rodolfo Ball Work Phone: [facility] Work Phone: Start: 09-22-2023 Non-patient / Non-visit DO Rodolfo Ball Work Phone: [facility] Work Phone: Start: 09-21-2023 End: 09-21-2023 ambulatory DO Rodolfo Ball Work Phone: [facility] Work Phone: Start: 09-21-2023 End: 09-21-2023 Patient encounter procedure DO Rodolfo Ball Work Phone: [facility] Work Phone: Start: 09-20-2023 End: 09-20-2023 ambulatory DO Rodolfo Ball Work Phone: [facility] Work Phone: Start: 09-20-2023 End: 09-20-2023 Patient encounter procedure DO Rodolfo Ball Work Phone: [facility]-CT Scan [place] Work Phone: Start: 09-01-2023 End: 09-01-2023 Patient encounter procedure DO Rodolfo Ball Work Phone: [facility] Work Phone: Start: 08-22-2023 End: 08-22-2023 Patient encounter procedure DO Rodolfo Ball Work Phone: [facility]-Lab [address] Work Phone: Start: 08-22-2023 End: 08-22-2023 ambulatory DO Rodolfo Ball Work Phone: [facility] Work Phone: Start: 07-11-2023 End: 07-11-2023 ambulatory Rodolfo Ball Other [email or web address] Other Start: 07-11-2023 Office outpatient visit 25 minutes Rodolfo Ball [facility] Start: 07-11-2023 End: 07-11-2023 Patient encounter procedure DO Rodolfo Ball Work Phone: [facility] Work Phone: Start: 07-05-2023 End: 07-05-2023 ambulatory Rodolfo Ball Other [email or web address] Other Start: 07-05-2023 Telephone encounter Rodolfo Ahmadi FP [facility] Start: 05-28-2023 End: 05-28-2023 ambulatory Rodolfo Ahmadi Other [email or web address] Other Start: 05-28-2023 Telephone encounter Rodolfo OLSEN [facility] Start: 05-26-2023 End: 05-26-2023 ambulatory Rodolfo Ahmadi Other [email or web address] Other Start: 05-26-2023 Office outpatient visit 25 minutes Rodolfo Ahmadi [facility] Start: 05-26-2023 End: 05-26-2023 Patient encounter procedure DO Rodolfo Ahmadi Work Phone: [facility] Work Phone: Start: 04-13-2023 End: 04-13-2023 ambulatory Rodolfo Ahmadi Other [email or web address] Other Start: 04-13-2023 Telephone encounter Rodolfo OLSEN [facility] Start: 04-11-2023 End: 04-11-2023 ambulatory Rodolfo Ahmadi Other [email or web address] Other Start: 04-11-2023 Telephone encounter Rodolfo OLSEN G [employer] Start: 03-30-2023 Telephone encounter Rodolfo OLSEN [facility] Start: 03-30-2023 End: 03-30-2023 Admission to same day surgery center DO Rodolfo Ball Work Phone: [facility] Work Phone: Start: 03-30-2023 End: 03-30-2023 ambulatory DO Rodolfo Ahmadi Work Phone: [facility] Work Phone: Start: 03-23-2023 End: 03-23-2023 ambulatory Imad Asaad Other [email or web address] Other Start: 03-23-2023 Office outpatient visit 25 minutes Imad Asaad [facility] Start: 02-24-2023 End: 02-24-2023 ambulatory Rodolfo Ahmadi Other [email or web address] Other Start: 02-24-2023 Telephone encounter Rodolfo OLSEN G [facility] Start: 02-22-2023 End: 02-22-2023 ambulatory Rodolfo Ahmadi Other [email or web address] Other Start: 02-22-2023 Office outpatient visit 25 minutes Rodolfo Ahmadi [facility] Start: 02-22-2023 Telephone encounter Rodolfo Ahmadi FP [facility] Start: 02-13-2023 End: 02-13-2023 Patient encounter procedure DO Rodolfo Ahmadi Work Phone: [facility]-CT Scan [place] Work Phone: Start: 02-10-2023 End: 02-10-2023 ambulatory Rodolfo Ahmadi Other [email or web address] Other Start: 02-10-2023 Telephone encounter Rodolfo OLSEN G [facility] Start: 02-09-2023 End: 02-09-2023 ambulatory DO Rodolfo Ahmadi Work Phone: [facility] Work Phone: Start: 02-09-2023 End: 02-09-2023 Patient encounter procedure DO Rodolfo Ahmadi Work Phone: [facility] Work Phone: Start: 01-30-2023 End: 01-30-2023 ambulatory Imad Asaad Other [email or web address] Other Start: 01-30-2023 Telephone encounter Imad Asaad [facility] Start: 01-25-2023 End: 01-25-2023 Patient encounter procedure DO Rodolfo Ahmadi Work Phone: [facility]-Lab [place] Work Phone: Start: 01-25-2023 End: 01-25-2023 ambulatory DO Rodolfo Ball Work Phone: [facility] Work Phone: Start: 01-25-2023 Office outpatient ne w 45 minutes Imad Asaad [facility] Start: 12-19-2022 End: 12-19-2022 ambulatory Rodolfo Galdino Other [email or web address] Other Start: 12-19-2022 Telephone encounter Rodolfo OLSEN G [facility] Start: 12-02-2022 End: 12-02-2022 ambulatory Rodolfo Ahmadi Other [email or web address] Other Start: 12-02-2022 Office outpatient visit 25 minutes Rodolfo Ahmadi [facility] Start: 11-04-2022 End: 11-04-2022 ambulatory Rodolfo Ahmadi Other [email or web address] Other Start: 11-04-2022 Patient encounter procedure Rodolfo Ahmadi [facility] Start: 10-14-2022 End: 10-14-2022 ambulatory Rodolfo Ahmadi Other [email or web address] Other Start: 10-14-2022 Telephone encounter Rodolfo OLSEN [facility] Start: 08-30-2022 End: 08-30-2022 ambulatory Rodolfo Ahmadi Other [email or web address] Other Start: 08-30-2022 Telephone encounter Rodolfo OLSEN [facility] Start: 07-15-2022 End: 07-15-2022 ambulatory Rodolfo Ahmadi Other [email or web address] Other Start: 07-15-2022 Office outpatient visit 15 minutes Rodolfo Ahmadi [facility] Start: 05-07-2022 End: 05-08-[address] RODOLFO AHMADI Facility:[facility] Start: 01-28-2022 End: 01-29-[address] RODOLFO AHMADI Facility:[facility] Start: 10-26-2019 Adult health examination Imad Asaad Other [email or web address] Other Start: 04-25-2019 Problem, abnormal examination Imad Asaad Other [email or web address] Other Start: 04-11-2019 End: 04-18-2019 Evaluation and management of inpatient GEMA MCKEON [facility] Start: 04-11-2019 End: 04-18-2019 Evaluation and management of inpatient Joseph Contreras Work Phone: [address] Onc/Med Surg Comment on above: Acute [...] on above: Performed By: #### PSASC #### [facility] [address] [place] [address] Dr. Poncho Zamarripa Start: 04-18-2019 Glucose blood [...] Thromboplastin time partial plasma/whole blood Vargas Perry Shoutlyuger Work Phone: Start: 04-17-2019 INTAKE AND OUTPUT [...] WRIGHT Start: 04-15-2019 INITIATE OXYGEN THERAPY PROTOCOL GEMA [...] GEMA WRIGHT Start: 04-14-2019 IP CONSULT TO DRAWER IN STITCH BONDING MACHINE GEMA KEEN Start: 04-14-2019 Glucose blood reagent [...] 04-12-2019 Glucose blood reagent strip GEMA CARA WRIGHT [...] 04-11-2019 Glucose blood reagent strip Joseph S [employer] Work Phone: Start: 04-11-2019 Assay of lipase [...] Start: 04-11-2019 PULSE OXIMETRY SPOT CHECK GEMA GATES AUGUSTO Start: 04-11-2019 FULL CODE GEMA MCKEON Start: 04-11-2019 VITAL SIGNS GEMA MCKEON Start: 04-11-2019 Assay of lipase Karol L[employer]ions Work Phone: Start: 04-11-2019 Blood count complete auto&auto difrntl wbc [employer] Aguirre Work Phone: Start: 04-11-2019 PULSE OXIMETRY [...] Date Care Activity Detail Author Start: 03-30-2023 [facility] Start: 02-09-2023 [facility] Start: 01-25-2023 Hepatitis A virus antibody, IgM type [facility] Start: 01-25-2023 Hepatitis B core ant ibody measurement [facility] Start: 01-25-2023 Hepatitis B core ant ibody measurement, IgM type [facility] Start: 01-25-2023 [facility] Start: 04-18-2020 Creatinine monitoring Creatinine mon itoring [place], [place] Start: 04-18-2020 Potassium monitoring Potassium monit [place] Start: 04-12-2020 A1C test (Diabetic o r Prediabetic) A1C test (Diabetic or Prediabetic) [place], [place] Start: 2018 Pneumococcal 65+ yea rs Vaccine (1 of 2 - PCV13) Pneumococcal 65+ years Vaccine (1 of 2 - PCV13) [place], [place] Start: 12-14-2003 Colon cancer screen colonoscopy Colon cancer screen colonoscopy [place], [place] Start: 12-14-2003 Shingles Vaccine (1 of 2) Shingles V accine (1 of 2) [place], [place] Start: 1972 DTaP/Tdap/Td vaccine (1 - Tdap) DTaP/Tdap/Td vaccine (1 - Tdap) [place], [place] Start: 12-14-1971 Diabetic microalbumi dilma test Diabetic microalbuminuria test [place], [place] Start: 1968 HIV screen HIV screen [place], [place] Start: 12-14-1963 [object Object] Diabetic foot exam [place], [place] Start: 12-14-1963 Diabetic retinal exam Diabetic retin al exam [place], [place] Start: 12-14-1963 Lipid screen Lipid screen [place], [place] Start: 1953 Hepatitis C screen Hepatitis C scree n [place], [place] Actin smooth muscle IgG Ab [Units/volume] in Serum [facility] Alpha 1 antitrypsin [Mass/volume] in Serum or Plasma [facility] Alpha 1 antitrypsin phenotyping [Identifier] in Serum or Plasma by Immunofixation [facility] [id number]. tumor marker [Mass/volume] in Serum or Plasma [facility] [id number]. tumor marker [Mass/volume] in Serum or Plasma [facility] CBC Auto Differential CBC Auto D ifferential Lab Routine Tomorrow AM until discontinued starting 04/18/2019, 1 completed [place], [place] Comment on above: Tomorrow AM until di scontinued starting 04/18/2019, 1 completed Ceruloplasmin [Mass/volume] in Serum or Plasma [facility] Comprehensive metabo lic 2000 panel - Serum or Plasma [facility] Hepatitis A virus Ab [Presence] in Serum by Immunoassay [facility] Hepatitis B virus boswell rface Ab [Presence] in Serum [facility] Hepatitis B virus boswell rface Ag [Presence] in Serum or Plasma by Immunoassay [facility] Hepatitis C virus Ig G Ab [Presence] in Serum or Plasma by Immunoassay [facility] HFE gene mutations f ound [Identifier] in Blood or Tissue by Molecular genetics method Nominal [facility] HHN Treatment HHN Treatment Re spiratory Care Routine Every 6hr As Needed until discontinued starting 04/12/2019 [place], [place] Comment on above: Every 6hr As Needed until discontinued starting 04/12/2019 Homogenous nuclear A b pattern [Titer] in Serum [facility] IgA [Mass/volume] in Serum or Plasma [facility] IgG [Mass/volume] in Serum or Plasma [facility] IgM [Mass/volume] in Serum or Plasma [facility] Initiate Oxygen Ther apy Protocol Initiate Oxygen Therapy Protocol Respiratory Care Routine Daily until discontinued starting 04/11/2019 [place], [place] Comment on above: Daily until disconti nued starting 04/11/2019 Lipoprotein a [Moles/volume] in Serum or Plasma [facility] Microalbumin [Mass/volume] in Urine [facility] Mitochondria M2 IgG Ab [Units/volume] in Serum [facility] Nuclear Ab [Titer] i n Serum [facility] POCT glucose [place], [place] Comment on above: 4X Daily (AC & HS) u ntil discontinued starting 04/13/2019 As Needed until disc ontinued starting 04/15/2019 Surgical Pathology Surgical Path ology Lab Routine ONE TIME for 1 Occurrences starting 04/17/2019 [place], [place] Comment on above: ONE TIME for 1 Occur rences starting 04/17/2019 End: 04-17-2019 Surgical Pathology Surgical Pathology Lab Routine Once for 1 Occurrences starting 04/17/2019 until 04/17/2019 [place], [place] Comment on above: Once for 1 Occurrenc es starting 04/17/2019 until 04/17/2019 [facility] Immunizations Immunization Date Immunization Notes Care Provider Edward miller 05-26-2023 influenza virus vaccine, unspecified formulation DO Rodolfo Ahmadi Work Phone: [facility] 05-26-2023 influenza, high dose seasonal, preservative-free Rodolfo Ahmadi Other [email or web address] Other 06-24-2021 COVID-19 Vaccine Moderna - Documentation Purposes Only Rodolfo Ahmadi Other [facility] 09-12-2020 COVID-19 Vaccine Moderna - Documentation Purposes Only Rodolfo Ahmadi Other [facility] 06-19-2020 influenza virus vaccine, split virus (incl. purified surface antigen) Imad Asaad Other [email or web address] Other 06-19-2020 influenza virus vaccine, unspecified formulation DO Rodolfo Ahmadi Work Phone: [facility] 04-13-2019 influenza, injectabl e, quadrivalent, preservative free [place] 04-12-2019 influenza quadrivale nt split vaccine (FLUZONE;FLUARIX;FLULAV AL;AFLURIA) injection 0.5 mL [place], [place] Payers Date Payer Category Payer Self-pay 2019 Unknown [employer] xxxxxxxxx 2019-Present [address] [place] [address] xxxxxxxxx [id number] 2019 Unknown [id number] 2018 Medicare MEDICARE MEDICAR E PART A AND B xxxxxxxxxxx 2018-Present [phone] [address] [address] [place] [address] xxxxxxxxxxx [id number] 2018 Medicare [id number] 1959 Unknown [id number] 1955 Unknown [id number] 1953 Unknown [id number] 1955 Unknown [id number] Unknown [id number] Unknown [id number] Unknown [id number] Unknown [id number] [id number] Unknown [id number] Social History Date Type Detail Facility Start: 04-18-2019 Tobacco smoking stat [facility] Former smoker [place], [place] End: 07-03-1991 History of tobacco use Current smoker [place], [place] End: 07-03-1991 History of tobacco use Cigarette Smoker [place], [place] Start: 04-18-2019 Alcohol intake Yes [place], [place] Sex Assigned At Not on file [place], [place] Start: 1955 Sex Assigned At Male [facility] Start: 03-30-2023 End: 03-30-2023 Tobacco smoking status [facility] Never smoked tobacco (finding) [facility] Start: 05-17-2024 Sex Male (finding) [facility] Medical Equipment Procedure Code Equipment Code Equipment [...] for hepatitis A. Needs hepatitis B vaccine. [facility] Work Phone: 1(715) 234-582309-19-2024 Evaluation note* Author Jojo [facility] Authored March 21, 2024 9:41am 68-year-old man [...] for hepatitis A. Needs hepatitis B vaccine. [facility] Work Phone: 1(671) 283-728303-21-2024 Evaluation note* Author Jojo Stearns [facility] Authored September 21, 2023 9:5 1am 67-year-old [...] for hepatitis A. Needs hepatitis B vaccine. [facility] Work Phone: 1(957) 116-335701-09-2024 Evaluation note* Encounter Date Diagnosis Assessment Notes [...] the risk for cerebrovascular and cardiovascular disease. [email or web address] Other 11-24-2023 Evaluation note* Encounter Date Diagnosis [...] the risk for cerebrovascular and cardiovascular disease. [email or web address] Other 09-28-2023 [facility]* Encounter Date Diagnosis Assessment Notes [...] R16.1) Mar, Metabolic syndrome (ICD-10 - E88.81) [email or web address] Other 08-23-2023 Evaluation note* Encounter Date Diagnosis [...] diet Jan, External hemorrhoid (ICD-10 - K64.4) [email or web address] Other 07-31-2023 Evaluation note* Encounter Date Diagnosis Assessment Notes Treatment Notes Treatment Clinical Notes Dec, THOMASON (nonalcoholic steatohepatitis) (ICD-10 - K75.81) Dec, Elevated liver enzymes (ICD-10 - R74.8) [email or web address] Other 07-26-2023 Evaluation note* Encounter Date Diagnosis Assessment Notes Treatment Notes Treatment Clinical Notes Dec, Nonalcoholic steatohepatitis (THOMASON) (ICD-10 - K75.81) Dec, Elevated liver enzym es (ICD-10 - R74.8) Return visit when these are completed. [email or web address] Other 06-02-2023 Evaluation note* Encounter Date Diagnosis [...] [BMI ] 36.0-36.9, adult (ICD-10 - Z68.36) [email or web address] Other 05-05-2023 Evaluation note* Encounter Date Diagnosis [...] Screening for colon cancer (ICD-10 - Z12.11) [email or web address] Other 02-28-2023 Evaluation note* Encounter Date Diagnosis Assessment Notes Treatment Notes Treatment Clinical Notes Aug, Controlled type 2 diabetes mellitus with hyperglycemia, without long-term current use of insulin (ICD-10 - E11.65) [email or web address] Other 01-13-2023 Evaluation note* Encounter Date Diagnosis [...] which are reviewed at the office visit. [email or web address] Other Evaluation noteNo InformationNort Authorly Other Evaluation noteNo assessment information available [facility] Work Phone: Evaluation note* Diagnosis Onset Date Resolution Status Chronic venous insufficiency acute Cirrhosis of liver without ascites acute Controlled diabetes mellitus with hyperglycemia acute Essential hypertension acute Primary osteoarthritis of knees, bilateral acute [facility] Work Phone: Evaluation note* Author Jojo Stearns [facility] Authored September 21, 2023 9:5 1am 67-year-old [...] for hepatitis A. Needs hepatitis B vaccine. [facility] Work Phone: Evaluation note* Diagnosis Onset Date Resolution Status Chronic venous insufficiency acute Cirrhosis of liver without ascites acute Essential hypertension acute Hypertension acute Metabolic dysfunction-associ ated steatohepatitis (MASH) acute Primary osteoarthritis of knees, bilateral acute Thrombocytopenia acute Type 2 diabetes mellitus with hyperglycemia acute Medicare annual wellness visit, subsequent noneactive Screening PSA (prostate specific antigen) noneactive [facility] Work Phone: Evaluation note* Author Jojo Stearns [facility] Authored March 21, 2024 10:41am 68-year-old man [...] for hepatitis A. Needs hepatitis B vaccine. [facility] Work Phone: Hiseomy general Narrative - Reported* Type Description Date [...] arthroscopy 04/29/22 Hospitalization History see surgical history [email or web address] Other MD2Unpxj general Narrative - Reported* Type Description Date [...] 02/19 23` Hospitalization History see surgical history [email or web address] Other Hisxmcy general Narrative - Reported* Type Description Date [...] years 01/2023` Hospitalization History see surgical history [email or web address] Other History general Narrative - Reported* Type [...] EGD 03/2023 Hospitalization History see surgical history [email or web address] Other Hospital Discharge instructions Additional Instructions DISCHARGE [...] if you have any problems. -Office number [phone]: Reason for referral (narrative)* Reason Referral for colonos copy Diagnosis 1 Rectal bleeding (K62 .5) Diagnosis 2 External hemorrhoid (K64.4) Diagnosis 3 Screening for colon cancer (Z12.11) Referral Organization [facility] Janeen ambrose Referring Provider First Name Rodolfo Referring Provider Last Name Galdino Referring Provider Specialty Internal Me dicine Referred Organization [facility] Referred Provider Yordan Shaffer Referred Address [address] [place] [phone] Referred Provider Specialty Surgery Referral Priority Routine [...] to be done prior to his referral. [email or web address] Other Reason for referral (narrative)* Reason Referral for evaluat ion of diffuse arthralgias and myalgias Diagnosis 1 Inflammatory polyart hritis (M06.4) Diagnosis 2 Primary osteoarthrit is of both knees (M17.0) Diagnosis 3 Primary osteoarthrit is of both first carpometacarpal joints (M18.0) Referral Organization [facility] Galdino ambrose Referring Provider First Name Rodolfo Referring Provider Last Name Galdino Referring Provider Specialty Internal Me dicine Referred Organization [facility] Referred Address [address] [place],[address] Referred Provider Specialty Rheumatology Referral Priority Routine [...] and RA. Clinical Notes Include recent labs [email or web address] Other Discharge Instructions * Discharge Instr - [...] Care Everywhere. * Blood Pressure Test: Home (Chadian) * Cholecystectomy: Post-op (Chadian) * Diet: DASH (Chadian) * Gallbladder Disease: Low-Fat Diet (Chadian) * Gallstones (Chadian) * Pancreatitis: Acute: General Info (Chadian) * pantoprazole (oral/injection) (Chadian) documented in this encounter History of Present Illness * Leslie Nichole, RN - 04/18/2019 2:13 PM EDT Discharge order received. IV removed. Publicity Agent went over d/c instructions with pt, including medications and follow up appointments. Pt sent home with and instructed to continue using hibiclens. Pt verbalized understanding. Pt was d/c with all documented belongings. * Ana White - 04/18/2019 1:56 PM EDT CLINICAL PHARMACY NOTE: MEDS TO [facility] Patient?: No Total # of Prescriptions Filled: 1 The following medications were delivered to the patient: Percocet 5-325mg Total # of Interventions Completed: 0 Time Spent (min): 5 Additional Documentation: meds delivered to patients at 1:51pm. Patient was in the shower. * Vargas Dodson DO - 04/18/2019 10:[address] 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 However, the abdominal pain did not cease [...] 04/18/2019 0625 Gross per 24 hour Intake 56517.42 ml Output 900 ml Net 84699.42 ml Labs: Hematology: Recent Labs 04/16/1953004/17/1952604/18/19517 WBC [...] results found for: POCPH, PHART, PH, POCPCO2, OPO0UML, PCO2, POCPO2, PO2ART, PO2, POCHCO3, XQF5VQM, HCO3, NBEA, PBEA, BEART, BE, THGBART, THB, RHQ6ULC, HKMH1FWI, V1VFBJPT, O2SAT, FIO2 No results found for: SPECIAL [...] 04/18/2019 0625 Gross per 24 hour Intake 06595.42 ml Output 1870 ml Net 35989.42 ml PHYSICAL EXAM Constitutional: Vital signs are [...] Dodson DO - 04/17/2019 6:[address] 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 However, the abdominal pain did not cease [...] [MAR Hold] indocyanine green 5 mg Intravenous Photoengraving Etcher Apprentice to OR enoxaparin 30 mg Subcutaneous BID [...] results found for: POCPH, PHART, PH, POCPCO2, NML3VDP, PCO2, POCPO2, PO2ART, PO2, POCHCO3, DUW1ZUT, HCO3, NBEA, PBEA, BEART, BE, THGBART, THB, VOL1ZEW, ERNA1KZG, P4BAELPY, O2SAT, FIO2 No results found for: SPECIAL [...] that family is on the way from [place]. Resting in bed with side rails up [...] Dodson DO - 04/16/2019 7:[address] 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 However, the abdominal pain did not cease [...] [START ON 04/17/2019] ceFAZolin 2 g Intravenous Photoengraving Etcher Apprentice to OR [START ON 04/17/2019] indocyanine green 5 mg Intravenous Photoengraving Etcher Apprentice to OR [START ON 04/17/2019] enoxaparin 30 [...] results found for: POCPH, PHART, PH, POCPCO2, ORF3OBJ, PCO2, POCPO2, PO2ART, PO2, POCHCO3, KRO5CEO, HCO3, NBEA, PBEA, BEART, BE, THGBART, THB, TZI5HTK, VJBL6EDN, M3EFRHOG, O2SAT, FIO2 No results found for: SPECIAL [...] has been instructed on DM diet by Demand Generation Manager- note reviewed- however upon discussion with pt [...] 5. Fluid Accumulation-Mild fluid accumulation, Generalized 6. Hematologist Strength-Not measured Nutrition Risk Level: Moderate Nutrient [...] Current Body Wt: 240 lb (108.9 kg) [place] Body Wt: 160 lb (72.6 kg), % [place] Body 150% BMI Classification: BMI 35.0 - [...] Dodson, DO - 04/15/2019 1:[address] [facility] IN-PATIENT SERV[facility] Progress Note 04/15/2019 1:09 PM Name: Paty Cardona Acct: [id number] Room: 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 However, the abdominal pain did not cease [...] results found for: POCPH, PHART, PH, POCPCO2, THJ4VBF, PCO2, POCPO2, PO2ART, PO2, POCHCO3, RCR9AUC, HCO3, NBEA, PBEA, BEART, BE, THGBART, THB, EIW6BGL, FMNH9OSZ, V7AOLCLS, O2SAT, FIO2 No results found for: SPECIAL [...] grow new cartilage. This was done in [place]. Then all this developed so concerned about [...] 3 meals and snacks and meeting with beam racker to help develop a plan. Main beverage [...] Type 2 Diabetes _x__ Be safe with [place] teaching sheet / [place] EPA Disposal of Household Generated Sharps _x__ Type 2 Diabetes and Adding Insulin fold out with survival skills _x__ [facility] Diabetes Education brochure/ contact card Patient needs reinforcement. understanding of survival skills education. Patient was very receptiveand willing to make changes in eating habits. RECOMMENDATIONS INPATIENT PLAN: _x__ Phys Therapist Consult this admission for education on CHO [...] patient to watch Education TV Channels ( [employer] Private Channels 75 and 76 at 9am, 3pm, 7pm, 9pm) RECOMMENDATIONS FOR OUTPATIENT PLAN: Diabetes Self-Monitoring Supplies: Unsure if patient will need to check BG, or follow with 3 mo [id number] decision made by PCP. _x__ Preferred / [...] HCP follow -up : Follow up in [place] area __ Would recommend follow -up education at outpatient diabetes education at [facility]. An ordered is needed for this service [...] EDT Pt c/o feeling congested in chest. Publicity Agent gave and instructed of on use of incentive spirometer. Ptdid return demonstration and reached >2000. * Joseph Contreras DO - 04/14/2019 3:[address] [facility] IN-PATIENT SERVICE [facility] Progress Note 04/14/2019 3:55 PM Name: Paty Cardona Acct: [id number] Room: 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 Increase in abd pain and change [...] Contreras DO - 04/13/2019 2:[address] [facility] IN-PATIENT SERVICE [facility] Progress Note 04/13/2019 2:30 PM Name: Paty Cardona Acct: [id number] Room: 0441/0441-01 IP Day: 2 Admit Date: [...] management of: Gallstone pancreatitis Patient admitted from [facility] ER with Patient c/o increasing abdominal pain [...] results found for: POCPH, PHART, PH, POCPCO2, GIS6OJW, PCO2, POCPO2, PO2ART, PO2, POCHCO3, NYT6TNO, HCO3, NBEA, PBEA, BEART, BE, THGBART, THB, TPQ9CNU, GMQK0ZDC, G4ITAQHV, O2SAT, FIO2 Radiology: Mri Abdomen W Wo [...] DO 04/13/2019 2:30 PM * Nathaniel Eubanks, BILLING MACHINE OPERATOR - SLAB INSPECTOR - 04/13/2019 12:03 PM EDT [facility] Progress Note Paty Cardona is a [...] No results for input(s): LABIRON, TIBC, FERRITIN, GFISIQST27, FOLATE, OCCULTBLD in the last 72 hours. [...] questions or concerns. Nathaniel Eubanks, ZANDRA - [facility] [phone] Associated attestation - Rachel Rivers MD - [...] Alejandro, DO - 04/12/2019 2:[address] [facility] IN-PATIENT SERVICE [facility] Progress Note 04/12/2019 2:42 PM Name: Paty Cardona Acct: [id number] Room: [address] [place] [address] IP Day: 1 Admit Date: 04/11/2019 4:05 [...] results found for: POCPH, PHART, PH, POCPCO2, UBS6WEI, PCO2, POCPO2, PO2ART, PO2, POCHCO3, KSR0QSV, HCO3, NBEA, PBEA, BEART, BE, THGBART, THB, PFB4PHZ, DPZG5SKI, F7SQDRVI, O2SAT, FIO2 Radiology: Mri Abdomen W Wo [...] 7:04 PM EDT Home meds verified with [facility] * Leslie Nichole RN - 04/11/2019 6:45 PM EDT Pt to MRI via stretcher. * Leslie Nichole RN - 04/11/2019 4:10 PM EDT Pt arrived via EMS on stretcher as direct admit from [facility] in [place]. Pt responds to voice. Vitals stable. Will [...] Documents on File Type Date Recorded Patient Baler Expl anation Advance Directives and Living Will Power of Ratoprinter Latest Code Status on File Code Status [...] both first carpometacarpal joints (M18.0) Referral Organization [facility] Referring Provider First Name Rodolfo Referring Provider Last Name Galdino Referring Provider Specialty Internal Me dicine Referred Organization [facility] Referred Provider Dakota Levy Referred Address [address] [place] [phone] Referred Provider Specialty Orthopaedic Surgery Referral Priority [...] type gallstone stones/ pancreatitis Joseph Contreras DO [facility] [place] [address] [facility] (unrecognized sect ion and content) No Status Records FoundNo Status Records FoundNo Status Records Found INFORMATION SOURCE (unrecogn ized section and content) DATE CREATED AUTHOR 04/19/2019 [facility] DATE CREATED AUTHOR AUTHOR'S ORGANIZ ATION 05/13/2022 [facility] DATE CREATED AUTHOR AUTHOR'S ORGANIZ ATION 03/29/2024 [facility] Care Teams (unrecognized sec [...] BE BASED ON THE PRIMARY CLINICAL RECORDS. [facility] Mtime [facility]. provides no warranty or guarantee of the accuracy or completeness of information in this document.
--- NOTE | 2024-08-20 11:48 | XR_ITS ---
The [address] [address] Patient Name: PATY CARDONA MRN: [id number] date: 1955 Sex: M Assigned Patient Location: [facility] Current Patient Location: [facility] Accession/Order Number: [id number] Exam Date: 08/20/2024 17:39 Report Date: 08/20/2024 17:43 At the request of: ERICK BARBER NP Procedure: XR shoulder RT min 2V RIGHT SHOULDER - 3 views CLINICAL HISTORY: Chronic right shoulder pain. No reported injury. COMPARISON: None AP, Y and Grashey views were obtained. There is osteopenia. There is no evidence of fracture or dislocation. There is mild hypertrophy at the acromioclavicular and moderate at the inferior glenohumeral joint. There is also some sclerosis at the greater tuberosity. There are no significant soft tissue abnormalities. XR/XR shoulder RT min 2V IMPRESSION: OSTEOPENIA AND DEGENERATIVE CHANGES. NO ACUTE BONY FINDINGS. Impression dictated by: Aranza Abreu M.D.08/20/2024 5:43 PM Dictation Location: [place] [address] Electronically authenticated by: [id number] Y Date: 08/20/2024 17:43
== END 2024-08-20 10:59 | disposition home or self-care (01) ==
LOC: RAD 11:00
PROVIDERS: PCP Internal Medicine; Visit Provider Registered Nurse
DX: M25.511 Pain in right shoulder (principal)
CPT/HCPCS: 73030